=== PATIENT | male | born 1970 | race Caucasian/White ===

== ENCOUNTER 2021-01-23 08:56 | Emergency (ER) | payer MEDICARE, SELFPAY ==
[2021-01-23 08:57] VITALS: BP 142/80; PULSE 93; RESP 36; TEMP 36.8; O2SAT 96; BMI 39.5
--- NOTE | 2021-01-23 09:08 | ECG_ITS ---
APPROVED REPORT Exam: Resting ECG HR:93 bpm ECG Measurements Heart Rate 93 AXES IA 144 P 46 QRSd 96 QRS 2 QT 366 T 58 QTc 455 Conclusion Normal sinus rhythm Normal ECG Electronically signed by : Cameron Kohli, 01/24/2021 20:57:50
--- NOTE | 2021-01-23 09:12 | HMH.EDGENADL ---
ED Disposition Clinical Impression: Transaminitis, SOB (shortness of breath) Disposition: Home, Self-Care Condition on Discharge: Good Instructions: Liver Cirrhosis (Alternative Therapy) Referrals: Star Mathis MD [Primary Care Provider] - 01/25/21 (call for appointment) Time of Disposition: 10:48 - Critical Care Critical Care Time: No Attestation: On , the high probability of a clinically significant, sudden or life threatening deterioration of the following system(s) required my full and direct attention, intervention and personal management. The time I documented below is in addition to time spent performing reported procedures but includes the following listed in this critical care notation. Medical Decision Making - Medical Records Medical records reviewed: Yes: I reviewed the patient's medical records. - Fahad Inquiry Pt receiving controlled substance: No Vital Signs: 01/23/21 08:57 Temperature 98.2 F Temperature Source Oral Pulse Rate [Radial] 93 H Respiratory Rate 36 H Blood Pressure [Right Arm] 142/80 H Blood Pressure Mean [Right Arm] 100 Blood Pressure Position [Right Arm] Sitting 02 Sat by Pulse Oximetry 96 Oxygen Delivery Method Room Air - Lab Data Lab Results 01/23/21 09:12: WBC 8.4, RBC 4.66, Hgb 10.6 L, Hct 34.9 L, MCV 74.9 L, MCH 22.8 L, MCHC 30.4 L, RDW 16.0, Plt Count 351, MPV 8.3, Neut % (Auto) 68.1, Lymph % (Auto) 18.9, [place] % (Auto) 7.5, Eos % (Auto) 5.1, Baso % (Auto) 0.4, Neut # (Auto) 5.7, Lymph # (Auto) 1.6, [place] # (Auto) 0.6, Eos # (Auto) 0.4, Baso # (Auto) 0.0 01/23/21 09:12: Sodium 143, Potassium 4.3, Chloride 102, Carbon Dioxide 33 H, Anion Gap 12.3, BUN 33 H, Creatinine 1.10, Estimated Creat Clear 136, Estimated GFR 71, Est GFR ( Amer) 86, Glucose 216 H, Calcium 9.0, Troponin I < 0.01, NT-Pro-B Natriuret Pep 75.2 01/23/21 09:12: Total Bilirubin 0.3, Direct Bilirubin 0.3, Conjugated Bilirubin 0.0, Indirect Bilirubin 0.0, Unconjugated Bilirubin 0.0, AST 78 H, ALT 85 H, Alkaline Phosphatase 165 H, Total Protein 7.6, Albumin 4.3 Result diagrams: 01/23/21 09:12 01/23/21 09:12 Orders (Tests/Meds): ORDERS Category Date Time Status XR chest portable Stat Exams 01/23/21 09:20 Taken - ECG Data Tracing #1 I reviewed this ECG and interpreted as documented below: 93 bpm, normal sinus rhythm, no ST elevation or depression, no ectopy, normal intervals. ECG initial impression date: 01/23/21 ECG initial impression time: 09:11 Medical Decision Narrative: 50yo M evaluated for dyspnea. Patient no acute distress on initial evaluation. He is able to speak in complete sentences. Patient is severely edematous with chronic skin changes to bilateral lower extremities. Noted to have worse blistering and weeping to his right lower extremity. Patient's abdomen is very tense with distention but no fluid wave is appreciated. Routine cardiac work-up, BNP are pending at this time. Patient's troponin is undetectable, his BNP is 75. On discussing lab results and findings with the patient at bedside, he relates he used to be a heavy drinker. States he used to drink a case per night. States he quit drinking 4 years ago. I completed a bedside ultrasound of the patient's abdomen to assess for significant ascites. No significant ascites was appreciated. Remainder of patient's laboratory studies are unremarkable except for transaminitis. Will order hepatitis panel, though this is a send off and will not be resulted today. Patient's chest x-ray is not terribly impressive and there are no previous studies for comparison that I can find. Patient has numerous chronic conditions but no acute diagnosis requiring admission to the hospital. We will discharge the patient home. Encouraged him to keep taking regular medications as directed. Follow-up with his PCPs office on Monday. General Adult HPI - General Stated complaint: soa, bilateral leg pain Time Seen by Provider: 01/23/21
--- NOTE | 2021-01-23 09:20 | XR_ITS ---
PROCEDURE INFORMATION: Exam: XR Chest Exam date and time: 01/23/2021 9:20 AM Age: 50 years old Clinical indication: Shortness of breath; Additional info: SOB TECHNIQUE: Imaging protocol: XR of the chest. Views: 1 view. COMPARISON: [facility] SHOU3R [id number] [id number] 09/13/2015 8:16 PM FINDINGS: Tubes, catheters and devices: Overlying EKG wires Lungs: Bibasilar atelectasis . No focal consolidation Pleural spaces: Unremarkable. No pleural effusion. No pneumothorax. Heart/Mediastinum: Unremarkable. No cardiomegaly. Bones/joints: Unremarkable. IMPRESSION: No acute process
[2021-01-23 09:23] LABS: Basophils % 0.4 % (0.1-2.0); Eosinophils # 0.4 K/mm3 (0.0-0.4); Eosinophils % 5.1 % (0.1-12.0); Hematocrit 34.9 % (42.0-52.0); Hemoglobin 10.6 g/dL (14.1-18.0); Lymphocytes # 1.6 K/mm3 (0.7-4.5); Lymphocytes % 18.9 % (10-50); Mean Corpuscular HGB Conc 30.4 g/dL (31.8-35.4); Mean Corpuscular Hemoglobin 22.8 pg (27.0-31.2); Mean Corpuscular Volume 74.9 fl (80-94); Mean Platelet Volume 8.3 fl (7.4-10.4); Monocytes # 0.6 K/mm3 (0.1-1.0); Monocytes % 7.5 % (1.7-9.3); Neutrophils # 5.7 K/mm3 (1.8-7.8); Neutrophils % 68.1 % (37.0-80.0); Platelet Count 351 K/mm3 (142-424); Red Blood Count 4.66 M/mm3 (4.60-6.20); White Blood Count 8.4 K/mm3 (4.8-10.8)
[2021-01-23 09:29] LABS: Chloride 102 mmol/L (98-107)
[2021-01-23 09:30] LABS: Potassium 4.3 mmoL/L (3.5-5.1); Sodium 143 mmol/L (136-145)
[2021-01-23 09:33] LABS: Anion Gap 12.3 mEq/L (5-15); Blood Urea Nitrogen 33 mg/dl (9-20); Carbon Dioxide 33 mmol/L (22.0-30.0); Creatinine Clearance Estimated 136 mL/min (50-200); Estimated Glomerular Filt Rate 71 ml/min (>60); GFR (African American) 86 ML/MIN (>60); Glucose 216 mg/dl (74-100)
[2021-01-23 09:44] LABS: NT Pro Brain Natriuretic Pep. 75.2 pg/mL (0-125)
[2021-01-23 09:49] LABS: Troponin I < 0.01 ng/ml (0.00-0.034)
[2021-01-23 10:03] LABS: Alanine Aminotransferase 85 U/L (12-78); Aspartate Amino Transferase 78 U/L (17-59)
[2021-01-23 10:04] LABS: Albumin Level 4.3 g/dl (3.5-5.0); Alkaline Phosphatase 165 U/L (38-126); Bilirubin,Direct 0.3 mg/dl (0.0-0.4); Bilirubin,Total 0.3 mg/dl (0.2-1.3); Total Protein,Serum 7.6 g/dl (6.3-8.2)
[2021-01-23 10:31] VITALS: BP 154/83; PULSE 94; RESP 20; O2SAT 99
[2021-01-23 11:02] VITALS: BP 151/87; PULSE 65; RESP 30; TEMP 36.6; O2SAT 98
[2021-01-24 08:25] LABS: Hep A Ab, IgM Negative (Negative); Hepatitis B Core Antibody IgM Negative (Negative); Hepatitis B Surface Antigen Negative (Negative); Hepatitis C Antibody <0.1 s/co ratio (0.0-0.9)
== END 2021-01-23 11:03 | disposition home or self-care (01) ==
PROVIDERS: Emergency Provider Family Medicine; PCP Emergency Medicine
DX: R74.01 Elevation of levels of liver transaminase levels (principal); R60.9 Edema, unspecified; E11.65 Type 2 diabetes mellitus with hyperglycemia; G62.9 Polyneuropathy, unspecified; K21.9 Gastro-esophageal reflux disease without esophagitis; I10 Essential (primary) hypertension; E78.5 Hyperlipidemia, unspecified; F41.8 Other specified anxiety disorders
CPT/HCPCS: 71045; 80048; 80074; 80076; 83880; 84484; 85025; 93005; 99283

== ENCOUNTER 2021-01-29 16:01 | Observation (INO) | payer MEDICARE, SELFPAY ==
[2021-01-29 16:02] VITALS: BP 171/88; PULSE 98; RESP 22; TEMP 36.4; O2SAT 99; BMI 42.5
--- NOTE | 2021-01-29 16:09 | ECG_ITS ---
APPROVED REPORT Exam: Resting ECG HR:100 bpm ECG Measurements Heart Rate 100 AXES [place] 152 P 48 QRSd 102 QRS -5 QT 354 T 57 QTc 456 Conclusion Normal sinus rhythm Normal ECG Electronically signed by : Cameron Kohli MD 01/30/2021 07:57:20
--- NOTE | 2021-01-29 16:15 | HMH.EDSOB ---
ED Disposition Clinical Impression: Hyperglycemia due to diabetes mellitus Congestive heart failure (CHF) Qualifiers: Heart failure type: diastolic Heart failure chronicity: acute on chronic Qualified Code(s): I50.33 - Acute on chronic diastolic (congestive) heart failure Disposition: Admitted as Observation Condition on Discharge: Fair - Critical Care Critical Care Time: No Attestation: On 01/29/21, the high probability of a clinically significant, sudden or life threatening deterioration of the following system(s) required my full and direct attention, intervention and personal management. The time I documented below is in addition to time spent performing reported procedures but includes the following listed in this critical care notation. Medical Decision Making - Medical Records Medical records reviewed: Yes: I reviewed the patient's medical records. - Fahad Inquiry Pt receiving controlled substance: No Vital Signs: 01/29/21 16:02 01/29/21 17:00 01/29/21 19:06 Temperature 97.6 F 97.6 F Temperature Source Oral Oral Pulse Rate 98 H 98 H Pulse Rate [Left Radial] 98 H Respiratory Rate 22 16 16 Blood Pressure 176/95 H 176/65 H Blood Pressure [Right Arm] 171/88 H Blood Pressure Mean [Right Arm] 115 Blood Pressure Source Automatic Cuff Blood Pressure Source [Right Arm] Automatic Cuff Blood Pressure Position Sitting Blood Pressure Position [Right Arm] Sitting 02 Sat by Pulse Oximetry 99 96 Oxygen Delivery Method Nasal Cannula Room Air Oxygen Flow Rate (LPM) 2 - Lab Data Lab results reviewed: Yes: I reviewed the patient's lab results. Lab Results 01/29/21 14:20: WBC 8.1, RBC 4.62, Hgb 10.4 L, Hct 34.6 L, MCV 75.0 L, MCH 22.6 L, MCHC 30.1 L, RDW 15.8, Plt Count 365, MPV 8.9, Neut % (Auto) 83.2 H, Lymph % (Auto) 11.5, [place] % (Auto) 4.6, Eos % (Auto) 0.5, Baso % (Auto) 0.3, Neut # (Auto) 6.7, Lymph # (Auto) 0.9, [place] # (Auto) 0.4, Eos # (Auto) 0.0, Baso # (Auto) 0.0 01/29/21 14:20: Sodium 138, Potassium 4.9, Chloride 96 L, Carbon Dioxide 31 H, Anion Gap 15.9 H, BUN 49 H, Creatinine 1.40 H, Estimated Creat Clear 62, Estimated GFR 54 L, Est GFR ( Amer) 65, Glucose 478 H*, Calcium 8.5, Total Bilirubin 0.3, AST 71 H, ALT 84 H, Alkaline Phosphatase 175 H, Troponin I < 0.01, NT-Pro-B Natriuret Pep 26.8, Total Protein 7.3, Albumin 4.3, Globulin 3.0, Albumin/Globulin Ratio 1.4 01/29/21 17:05: Urine Color Straw, Urine Appearance Clear, Urine pH 6.0, Ur Specific [place] 1.010, Urine Protein 1+, Urine Glucose (UA) 3+, Urine Ketones Negative, Urine Blood Trace-l, Urine Nitrate Negative, Urine Bilirubin Negative, Urine Urobilinogen 0.2, Ur Leukocyte Esterase Negative, Urine RBC Occasional, Urine WBC Occasional, Ur Squamous Epith Cells Occasional, Urine Bacteria Trace 01/29/21 18:09: POC Glucose 346 H* 01/29/21 18:26: SARS-CoV-2 (PCR) Not detected, Influenza A Untype (PCR) Not detected, Influenza Type B (PCR) Not detected Result diagrams: 01/29/21 14:20 01/29/21 14:20 Orders (Tests/Meds): ED MEDICATIONS Generic Name Dose Route Start Last Admin Trade Name Freq PRN Reason Stop Dose Admin Furosemide 60 mg 01/29/21 23:00 Furosemide 100mg/10ml Vial IV 01/29/21 23:01 ONCE ONE Discontinued Medications Generic Name Dose Route Start Last Admin Trade Name Freq PRN Reason Stop Dose Admin Insulin Human Regular 15 unit 01/29/21 16:44 01/29/21 17:00 Insulin Human Regular 100 Units/Ml 10ml Vial SQ 01/29/21 16:45 15 unit ONCE ONE Administration ORDERS Category Date Time Status Troponin I Q3H Lab 01/29/21 19:30 Ordered - ECG Data Tracing #1 The patient's ECG was done at 1610. It is a normal EKG with a normal sinus rhythm with a heart rate of 100 without any evidence of ischemia or dysrhythmia. Normal axis. Normal Sinus Rhythm: Yes - Physician Consults Physician Consulted: Yves Reason -: Admission Comment/Response: Met the patient. He has requested
--- NOTE | 2021-01-29 16:19 | XR_ITS ---
PROCEDURE: XR CHEST PORTABLE CLINICAL HISTORY: Dyspnea, COVID+, CP COMPARISON: CR XR CHEST PORTABLE from 01/23/2021 FINDINGS: The cardiomediastinal silhouette and pulmonary vascularity are within normal limits. The lungs are clear without infiltrates, suspicious nodules, or pleural effusions. No acute bony abnormalities. IMPRESSION: No acute findings. Dictated by: Mj Mcneil MD 01/29/2021 18:15 Mj Mcneil MD in [facility] 01/29/2021 18:15
[2021-01-29 16:26] LABS: Basophils % 0.3 % (0.1-2.0); Eosinophils % 0.5 % (0.1-12.0); Hematocrit 34.6 % (42.0-52.0); Hemoglobin 10.4 g/dL (14.1-18.0); Lymphocytes # 0.9 K/mm3 (0.7-4.5); Lymphocytes % 11.5 % (10-50); Mean Corpuscular HGB Conc 30.1 g/dL (31.8-35.4); Mean Corpuscular Hemoglobin 22.6 pg (27.0-31.2); Mean Platelet Volume 8.9 fl (7.4-10.4); Monocytes # 0.4 K/mm3 (0.1-1.0); Monocytes % 4.6 % (1.7-9.3); Neutrophils # 6.7 K/mm3 (1.8-7.8); Neutrophils % 83.2 % (37.0-80.0); Platelet Count 365 K/mm3 (142-424); Red Blood Count 4.62 M/mm3 (4.60-6.20); Red Cell Distribution Width 15.8 % (11.5-17.5); White Blood Count 8.1 K/mm3 (4.8-10.8)
[2021-01-29 16:38] LABS: Alanine Aminotransferase 84 U/L (12-78); Albumin Level 4.3 g/dl (3.5-5.0); Albumin/Globulin Ratio 1.4 (1.1-1.8); Alkaline Phosphatase 175 U/L (38-126); Anion Gap 15.9 mEq/L (5-15); Aspartate Amino Transferase 71 U/L (17-59); Bilirubin,Total 0.3 mg/dl (0.2-1.3); Blood Urea Nitrogen 49 mg/dl (9-20); Calcium 8.5 mg/dl (8.4-10.2); Carbon Dioxide 31 mmol/L (22.0-30.0); Chloride 96 mmol/L (98-107); Creatinine Clearance Estimated 62 mL/min (50-200); Estimated Glomerular Filt Rate 54 ml/min (>60); GFR (African American) 65 ML/MIN (>60); Potassium 4.9 mmoL/L (3.5-5.1); Sodium 138 mmol/L (136-145); Total Protein,Serum 7.3 g/dl (6.3-8.2)
[2021-01-29 16:42] LABS: Glucose 478 mg/dl (74-100)
[2021-01-29 16:51] LABS: NT Pro Brain Natriuretic Pep. 26.8 pg/mL (0-125)
[2021-01-29 16:58] LABS: Troponin I < 0.01 ng/ml (0.00-0.034)
[2021-01-29 17:00] VITALS: BP 176/95; PULSE 98; RESP 16; O2SAT 96
--- NOTE | 2021-01-29 17:05 | PC.NURSE ---
URINE OUTPUT [id number]
[2021-01-29 17:09] LABS: Microscopic, Urine URINE MICROSCOPIC (MICROSCOPIC)
[2021-01-29 17:12] LABS: Appearance,Urine CLEAR (Clear); Bilirubin,Urine Negative (Negative); Blood, Urine TRACE-L (Negative); Color,Urine STRAW (Yellow); Glucose,Urine (UA) 3+ (Negative); Ketones,Urine Negative (Negative); Leukocyte Esterase,Urine Negative (Negative); Nitrate,Urine Negative (Negative); Protein,Urine 1+ (Negative); Urobilinogen,Urine 0.2 EU/dl (0.2)
[2021-01-29 17:22] LABS: Bacteria,Urine Trace /lpf; RBC,Urine Occasional #/hpf (0-3); Squamous Epithelial Cell,Urine Occasional #/hpf (0-5); WBC,Urine Occasional #/hpf (0-3)
--- NOTE | 2021-01-29 18:13 | PC.NURSE ---
speaking with assistant director of plant operations doctor
[2021-01-29 18:16] LABS: POC Glucose,Bedside 346 (70-110)
--- NOTE | 2021-01-29 18:26 | PC.NURSE ---
Dr Fall spoke with Dr Marinelli for admission
--- NOTE | 2021-01-29 18:26 | INFXCTL.NOTE ---
Talked to Rakesh in pharmacy that states the dose of lantus to replace toujeo would be 200 units
--- NOTE | 2021-01-29 18:31 | PC.NURSE ---
bed assignment requested, room 211. all staff notified
[2021-01-29 18:40] LABS: Coronavirus 19, PCR Not Detected (NotDetected); Influenza A, PCR Not Detected (NotDetected); Influenza B, PCR Not Detected (NotDetected)
[2021-01-29 19:06] VITALS: BP 176/65; PULSE 98; RESP 16; TEMP 36.4; O2SAT 96
--- NOTE | 2021-01-29 19:40 | PC.NURSE ---
patient up to floor via wheelchair.
[2021-01-29 20:00] VITALS: BP 166/92; PULSE 90; RESP 18; TEMP 36.3; O2SAT 93; BMI 48.0
[2021-01-29 20:08] LABS: Troponin I < 0.01 ng/ml (0.00-0.034)
[2021-01-29 21:54] LABS: POC Glucose,Bedside 384 (70-110)
[2021-01-30] VITALS: BP 142/104; PULSE 98; RESP 20; TEMP 37.1; O2SAT 95
[2021-01-30 02:47] LABS: POC Glucose,Bedside 280 (70-110)
--- NOTE | 2021-01-30 03:29 | PC.NURSE ---
Pt is A/O x4. Pt rested well this shift. Phoned per pt's request to order bedtime meds to help him sleep. Verified Insulin dose with on phone that ER had ordered. pt also requested a Cpap machine that he wore all night and tolerated well. Pt ambulates to bathroom well. Pt is on room air, and has an IV in Left A/C that is SL. Call light within reach, VSS, pt is able to make needs known to staff, will continue to monitor.
[2021-01-30 03:57] VITALS: BP 136/97; PULSE 93; RESP 14; TEMP 36.3; O2SAT 99
[2021-01-30 05:35] VITALS: BMI 47.2
[2021-01-30 06:09] LABS: POC Glucose,Bedside 254 (70-110)
[2021-01-30 07:40] LABS: Chloride 93 mmol/L (98-107); Sodium 141 mmol/L (136-145)
[2021-01-30 07:43] LABS: Blood Urea Nitrogen 37 mg/dl (9-20); Calcium 9.3 mg/dl (8.4-10.2); Carbon Dioxide 38 mmol/L (22.0-30.0); Creatinine Clearance Estimated 72 mL/min (50-200); Estimated Glomerular Filt Rate 64 ml/min (>60); GFR (African American) 78 ML/MIN (>60); Glucose 264 mg/dl (74-100)
[2021-01-30 08:00] VITALS: BP 159/94; PULSE 95; RESP 18; TEMP 36.7; O2SAT 95
--- NOTE | 2021-01-30 13:53 | HMH.PHAINT ---
MEDICATION RECONCILIATION COMPLETE USING EXTERNAL PHARMACY FILL HISTORY, LIST FROM RECENT OFFICE VISIT, AND PATIENT INTERVIEW.
[2021-01-30 14:05] LABS: POC Glucose,Bedside 552 (70-110)
[2021-01-30 14:33] LABS: Glucose,Random 624 mg/dL (74-100)
--- NOTE | 2021-01-30 15:04 | HMH.HP ---
*Admission Date: 01/29/21 *Chief complaint: chf and diabetes *History of present illness: The patient presents to the emergency department today because he has noted increased leg swelling and he has become progressively more short of breath. He states that last night he had an episode of chest pain for which he took nitroglycerin. He states that he has never had an acute myocardial infarction in his he has had a cardiac catheterization which looked good . He has a known history of diabetes for which she takes oral agents as well as insulin and he has a history of congestive heart failure for which she takes Lasix. He states that lately he has been having less urine output than usual. MD Complaint: shortness of breath from er records Patient has a longstanding history of poorly controlled diabetes with ocular complications. Patient has YESSENIA, uses a CPAP at night. Patient has longstanding volume overload, density for weeping edema. Patient gives a history of dyspnea on exertion. [facility] History Medical History: Reports:: Anxiety, Atrial Fibrillation, Congestive Heart Failure, Coronary Artery Disease, Depression, Diabetes Mellitus Type 2, Gastroesophageal Reflux Disease(GERD), Hyperlipidemia, Hypertension, Renal Disease Denies:: Cancer, Diabetes Mellitus Type 1, MRSA *Have you ever received a pneumonia vaccine?: Yes *Have you received a flu vaccine this season?: Yes Other Surgeries: Yes: No Previous Surgery, Angiogram (11/13/17 no stenting), Cardiac Catheterization Amputation: No Fractures: Yes - *Social History Smoking Status: Former smoker Tobacco Type: smokeless tobacco Alcohol Intake: former Alcohol Intake Frequency:: 3 or more drinks per day Substance Use Type: denies use *Occupational Status:: disabled Household Members: family *Travel in the last 8 weeks: None - Psychiatric History Pschychiatric History:: Reports:: Anxiety, Depression Family Hx:: Heart Attack, Hypertension, Substance abuse, Alcoholism Review of Systems - Constitutional Reports lack of energy - Eyes Reports change in vision - ENT Denies abnormal hearing - *Cardiovascular Reports chest pain, Reports shortness of breath with activity - *Respiratory Reports shortness of breath, Denies coughing up blood - *Gastrointestinal Denies abdominal pain - *Genitourinary Denies difficulty urinating - *Musculoskeletal Reports abnormal walking, Reports muscle cramps, Reports muscle weakness - Integumentary/Breasts Reports lesions, Reports itching, Reports rash, Reports sores, Denies yellowing of the skin - *Neurologic Reports abnormal walking, Reports loss of vision, Denies confusion - Psychiatric Denies behavioral changes - Endocrine Reports heat intolerance - Hematologic/Lymphatic Denies easy bleeding, Denies easy bruising - Allergic/Immunologic Denies hives Meds Home Medications Medication Instructions Recorded Confirmed Type aspirin 81 mg tablet,delayed 81 mg PO DAILY tab 10/27/17 01/29/21 History release pantoprazole 40 mg tablet,delayed 40 mg PO QAM 10/27/17 01/29/21 History release omega-3 acid ethyl esters 1 gram 4 cap PO DAILY cap 11/08/17 01/30/21 History capsule albuterol sulfate 90 mcg/actuation 2 puff INHALATION Q4-6H PRN 01/18/21 01/29/21 History aerosol inhaler bupropion HCl (smoking deter) 150 150 mg PO BID 01/18/21 01/29/21 History mg tablet,12 hr sustained-release(smoking deterrent) buspirone 30 mg tablet 30 mg PO TID tab 01/18/21 01/29/21 History carvedilol 25 mg tablet 25 mg PO BID 01/18/21 01/29/21 History cholecalciferol (vitamin D3) 1,250 1,250 mcg PO WEEKLY 01/18/21 01/29/21 History mcg (50,000 unit) capsule duloxetine 30 mg capsule,delayed 60 mg PO DAILY cap 01/18/21 01/29/21 History release lorazepam 1 mg tablet 1 mg PO BIDP PRN 01/18/21 01/30/21 History losartan 100 mg tablet 100 mg PO DAILY 01/18/21 01/29/21 History magnesium oxide 400 mg PO DAILY 01/18/21
--- NOTE | 2021-01-30 15:48 | P.CONPHA_ITS ---
[facility] Pharmacy VTE Monitoring - Patient Demographics Admission date: 01/30/21 Report Date: 01/30/21 Time: 15:48 Allergies/Adverse Reactions: Patient Allergies pregabalin [From Lyrica] Adverse Reaction (Verified 01/18/21 10:24) made skin crawl Height: 1.73 m Weight: 141.606 kg Patient Problems: Current Active Problems SOB (shortness of breath) (Chronic) Congestive heart failure (CHF) (Chronic) Hyperglycemia due to diabetes mellitus (Chronic) Smoker (Chronic) Diabetes mellitus (Chronic) Other forms of angina pectoris (Chronic) HTN (hypertension) (Chronic) Dyspnea (Acute) Abnormal ECG (Acute) Orthopnea (Chronic) Chest pain (Acute) PND (paroxysmal nocturnal dyspnea) (Chronic) Hyperlipidemia (Chronic) Diabetic retinopathy (Chronic) Neuropathy (Chronic) - VTE Risk Labs: VTE Related Lab Results Hgb 10.4 g/dL (14.1-18.0) L 01/29/21 14:20 Hct 34.6 % (42.0-52.0) L 01/29/21 14:20 Plt Count 365 K/mm3 (142-424) 01/29/21 14:20 BUN 37 mg/dl (9-20) H 01/30/21 06:06 Creatinine 1.20 mg/dl (0.66-1.25) 01/30/21 06:06 Estimated Creat Clear 72 mL/min (50-200) 01/30/21 06:06 Was VTE Risk Assessment Performed: Yes VTE Score: 5 VTE Risk Level: Low Risk Clinical Trial Participant: No - Prophylaxis VTE Prophylaxis Ordered?: Yes Types of VTE Prophylaxis: Pharmacological Location of Applied Device: Refused Pharmacologic Type: Enoxaparin
[2021-01-30 16:00] VITALS: BP 145/82; PULSE 85; RESP 20; TEMP 36.9; O2SAT 96
[2021-01-30 16:51] LABS: Glucose,Random 621 mg/dL (74-100)
--- NOTE | 2021-01-30 18:11 | PC.NURSE ---
Pt has been pleasant and cooperative this shift. A&O X4. No complaints of pain or SOA. Pt is currently on room air with sats. >90%. Lungs CTA. 2+ pitting edema noted to BLE. Scattered scabbing noted to bilateral shins with slight bleeding noted. 4X4's, Kerlix, and JAY wrap applied. Pt ambulates independently to/from the bathroom and throughout the room. Pt also sat up in the recliner for the majority of the day. Urine is clear and yellow. No BM this shift. Appetite is excellent and pt eats 100% of all meals. Blood glucose results have been 624 and 621. A total of 70 units of Humalog has been given thus far this shift per MD orders. 18 G peripheral IV in the RT AC is patent and SL. VSS. Call light within reach. Will continue to monitor.
[2021-01-30 19:01] LABS: POC Glucose,Bedside 545 (70-110)
[2021-01-30 19:25] LABS: Glucose,Random 569 mg/dL (74-100)
[2021-01-30 20:00] VITALS: BP 170/86; PULSE 107; RESP 18; TEMP 36.8; O2SAT 96
--- NOTE | 2021-01-30 21:53 | PC.NURSE ---
[address]
[2021-01-30 22:18] LABS: POC Glucose,Bedside 378 (70-110)
[2021-01-31 04:00] VITALS: BP 155/97; PULSE 105; RESP 17; TEMP 36.9; O2SAT 96
[2021-01-31 05:20] VITALS: BMI 46.0
[2021-01-31 05:51] LABS: POC Glucose,Bedside 281 (70-110)
--- NOTE | 2021-01-31 06:00 | XR_ITS ---
PROCEDURE INFORMATION: Exam: XR Chest Exam date and time: 01/31/2021 6:00 AM Age: 50 years old Clinical indication: Other: Chf TECHNIQUE: Imaging protocol: XR of the chest. Views: 1 view. COMPARISON: CR XR CHEST PORTABLE 01/29/2021 4:33 PM FINDINGS: Lungs: Opacity in the left base and left mid lung may represent atelectasis or pneumonia.. Pleural spaces: Unremarkable. No pleural effusion. No pneumothorax. Heart/Mediastinum: Unremarkable. No cardiomegaly. Bones/joints: Unremarkable. IMPRESSION: Opacity in the left base and left mid lung may represent atelectasis or pneumonia..
[2021-01-31 08:00] VITALS: BP 147/87; PULSE 112; RESP 22; TEMP 36.8; O2SAT 98
[2021-01-31 08:14] LABS: Basophils # 0.1 K/mm3 (0-0.2); Basophils % 0.7 % (0.1-2.0); Eosinophils # 0.3 K/mm3 (0.0-0.4); Hematocrit 38.5 % (42.0-52.0); Hemoglobin 11.9 g/dL (14.1-18.0); Lymphocytes # 1.8 K/mm3 (0.7-4.5); Lymphocytes % 16.6 % (10-50); Mean Corpuscular HGB Conc 30.9 g/dL (31.8-35.4); Mean Corpuscular Hemoglobin 22.6 pg (27.0-31.2); Mean Platelet Volume 7.9 fl (7.4-10.4); Monocytes # 0.8 K/mm3 (0.1-1.0); Monocytes % 6.9 % (1.7-9.3); Neutrophils # 7.9 K/mm3 (1.8-7.8); Neutrophils % 72.9 % (37.0-80.0); Platelet Count 399 K/mm3 (142-424); Red Blood Count 5.27 M/mm3 (4.60-6.20); Red Cell Distribution Width 15.7 % (11.5-17.5); White Blood Count 10.9 K/mm3 (4.8-10.8)
[2021-01-31 08:46] LABS: Chloride 92 mmol/L (98-107)
[2021-01-31 08:47] LABS: Sodium 137 mmol/L (136-145)
[2021-01-31 08:49] LABS: Alanine Aminotransferase 124 U/L (12-78); Albumin Level 4.6 g/dl (3.5-5.0); Albumin/Globulin Ratio 1.3 (1.1-1.8); Alkaline Phosphatase 167 U/L (38-126); Aspartate Amino Transferase 107 U/L (17-59); Bilirubin,Total 0.3 mg/dl (0.2-1.3); Blood Urea Nitrogen 37 mg/dl (9-20); Calcium 9.2 mg/dl (8.4-10.2); Carbon Dioxide 34 mmol/L (22.0-30.0); Creatinine Clearance Estimated 72 mL/min (50-200); Estimated Glomerular Filt Rate 64 ml/min (>60); GFR (African American) 78 ML/MIN (>60); Globulin 3.6 g/dL (1.3-3.2); Glucose 312 mg/dl (74-100); Total Protein,Serum 8.2 g/dl (6.3-8.2)
[2021-01-31 11:23] LABS: POC Glucose,Bedside 531 (70-110)
[2021-01-31 12:07] LABS: Glucose,Random 517 mg/dL (74-100)
--- NOTE | 2021-01-31 14:05 | HMH.ACPN2 ---
Internal Medicine - PN: Subj *Date: 01/31/21 *Time: 14:07 Interval history: Patient relays no negative setbacks during the night. He is getting Lasix 80 IV twice daily and has diuresed well, all pound weight loss since yesterday. Reports that he is less dyspneic. He is having no ischemic chest pain. The edema in the lower extremities is no longer being. The rash on his anterior calves is slightly less red, looks much less angry. There is no streaking. View of his chest film just a process at the left base could be infiltrative. We will add a azithromycin to his regimen. YESSENIA, severe, has been using the CPAP BiPAP since admission. Longstanding history of poorly controlled diabetes. Glucose remains elevated today, will restart his home regimen hopes for better control. Will absolutely need to be fine-tuned as an outpatient. Exam Vital signs and Labs for Last 24 Hours: Temp Pulse Resp BP Pulse Ox 98.2 F 112 H 22 147/87 H 98 01/31/21 08:00 01/31/21 08:00 01/31/21 08:00 01/31/21 08:00 01/31/21 08:00 Laboratory Results - last 24 hr 01/30/21 13:58: POC Glucose 552 H* 01/30/21 14:05: Random Glucose 624 H* 01/30/21 16:25: Random Glucose 621 H* 01/30/21 18:54: POC Glucose 545 H* 01/30/21 19:05: Random Glucose 569 H* 01/30/21 21:28: POC Glucose 378 H* 01/31/21 05:26: POC Glucose 281 H 01/31/21 08:00: WBC 10.9 H D, RBC 5.27, Hgb 11.9 L, Hct 38.5 L, MCV 73.0 L, MCH 22.6 L, MCHC 30.9 L, RDW 15.7, Plt Count 399, MPV 7.9, Neut % (Auto) 72.9, Lymph % (Auto) 16.6, [place] % (Auto) 6.9, Eos % (Auto) 3.0, Baso % (Auto) 0.7, Neut # (Auto) 7.9 H, Lymph # (Auto) 1.8, [place] # (Auto) 0.8, Eos # (Auto) 0.3, Baso # (Auto) 0.1 01/31/21 08:00: Sodium 137, Potassium 4.0, Chloride 92 L, Carbon Dioxide 34 H, Anion Gap 15.0, BUN 37 H, Creatinine 1.20, Estimated Creat Clear 72, Estimated GFR 64, Est GFR ( Amer) 78, Glucose 312 H, Calcium 9.2, Total Bilirubin 0.3, AST 107 H D, ALT 124 H D, Alkaline Phosphatase 167 H, Total Protein 8.2, Albumin 4.6, Globulin 3.6 H, Albumin/Globulin Ratio 1.3 01/31/21 11:15: POC Glucose 531 H* 01/31/21 11:45: Random Glucose 517 H* I & O for Last 24 hours: Intake & Output 01/28/21 01/29/21 01/30/21 01/31/21 23:59 23:59 23:59 23:59 Intake Total 1730 / 1730 1560 / 1560 Output Total 3600 / 3600 650 / 650 Balance -1870 / -1870 910 / 910 Weight 316 lb 2 oz 312 lb 3 oz 304 lb - Constitutional no acute distress, morbidly obese, disheveled, cooperative - *Routine HEENT Exam Head: Present: normocephalic Eye: Present: EOMI, PERRL ENT: Present: mucous membranes moist - *Routine Neck Exam Present: supple. Absent: lymphadenopathy - *Routine Respiratory Exam Present: crackles, diminished air movement. Absent: accessory muscle use, respiratory distress, wheezes - *Routine Cardiovascular Exam Present: RRR - *Routine Abdominal Exam Present: soft, normoactive bowel sounds, obese. Absent: tenderness - *Routine Extremities Exam Present: edema. Absent: cyanosis, clubbing, calf tenderness - *Routine Skin Exam Present: intact, erythema, lesions. Absent: cyanosis - *Routine Neurological Exam Present: alert, oriented X3 Assessment and Plan (1) Congestive heart failure (CHF) Status: Chronic Qualifiers: Heart failure type: diastolic Heart failure chronicity: acute on chronic Qualified Code(s): I50.33 - Acute on chronic diastolic (congestive) heart failure Category: Medical Code(s): I50.9 - Heart failure, unspecified (2) Hyperglycemia due to diabetes mellitus Status: Chronic Category: Medical Code(s): E11.65 - Type 2 diabetes mellitus with hyperglycemia (3) Abnormal ECG Status: Acute Category: Medical Code(s): R94.31 - Abnormal electrocardiogram [ECG] [EKG] (4) CAD (coronary artery disease) Status: Suspected Qualifiers: Coronary Disease-Associated Artery/Lesion type: [place] artery [place] vs. transplanted heart: [place] heart Associated angina:
[2021-01-31 15:54] VITALS: BP 140/80; PULSE 110; RESP 20; TEMP 36.8; O2SAT 98
[2021-01-31 16:48] LABS: POC Glucose,Bedside 371 (70-110)
--- NOTE | 2021-01-31 17:39 | PC.NURSE ---
Pt has been pleasant and cooperative this shift. A&O X4. No complaints of pain or SOA. Pt is currently on room air with sats. >90%. Lungs CTA. 2+ pitting edema noted to BLE. Scattered scabbing noted to bilateral shins. Pt ambulates independently to/from the bathroom and throughout the room. Pt also sat up in the recliner for a few hours today. Urine is clear and yellow. No BM this shift. Appetite is excellent and pt eats 100% of all meals. Blood glucose results have been 531 and 371. 20 G peripheral IV in the RT upper arm is patent and SL. VSS. Call light within reach. Will continue to monitor.
[2021-01-31 20:00] VITALS: BP 105/52; PULSE 109; RESP 17; TEMP 37.1; O2SAT 97
[2021-01-31 22:02] LABS: POC Glucose,Bedside 190 (70-110)
[2021-02-01 04:00] VITALS: BP 112/70; PULSE 84; RESP 19; TEMP 36.6; O2SAT 97
[2021-02-01 05:00] VITALS: BMI 46.4
[2021-02-01 05:50] LABS: POC Glucose,Bedside 314 (70-110)
[2021-02-01 06:15] LABS: Basophils # 0.1 K/mm3 (0-0.2); Basophils % 0.6 % (0.1-2.0); Eosinophils # 0.3 K/mm3 (0.0-0.4); Eosinophils % 3.1 % (0.1-12.0); Hematocrit 35.1 % (42.0-52.0); Hemoglobin 10.8 g/dL (14.1-18.0); Lymphocytes % 19.4 % (10-50); Mean Corpuscular HGB Conc 30.8 g/dL (31.8-35.4); Mean Corpuscular Hemoglobin 22.6 pg (27.0-31.2); Mean Corpuscular Volume 73.3 fl (80-94); Mean Platelet Volume 7.4 fl (7.4-10.4); Monocytes # 0.6 K/mm3 (0.1-1.0); Monocytes % 6.1 % (1.7-9.3); Neutrophils # 7.4 K/mm3 (1.8-7.8); Neutrophils % 70.8 % (37.0-80.0); Platelet Count 341 K/mm3 (142-424); Red Blood Count 4.79 M/mm3 (4.60-6.20); Red Cell Distribution Width 15.5 % (11.5-17.5); White Blood Count 10.5 K/mm3 (4.8-10.8)
[2021-02-01 06:35] LABS: Chloride 90 mmol/L (98-107); Hemoglobin A1C 11.6 % (4.0-6.0); Potassium 4.4 mmoL/L (3.5-5.1); Sodium 135 mmol/L (136-145)
[2021-02-01 06:38] LABS: Alanine Aminotransferase 85 U/L (12-78); Albumin Level 4.2 g/dl (3.5-5.0); Albumin/Globulin Ratio 1.2 (1.1-1.8); Alkaline Phosphatase 140 U/L (38-126); Anion Gap 13.4 mEq/L (5-15); Aspartate Amino Transferase 69 U/L (17-59); Bilirubin,Total 0.5 mg/dl (0.2-1.3); Blood Urea Nitrogen 59 mg/dl (9-20); Calcium 8.6 mg/dl (8.4-10.2); Carbon Dioxide 36 mmol/L (22.0-30.0); Creatinine Clearance Estimated 38 mL/min (50-200); Estimated Glomerular Filt Rate 30 ml/min (>60); GFR (African American) 37 ML/MIN (>60); Globulin 3.4 g/dL (1.3-3.2); Glucose 283 mg/dl (74-100); Total Protein,Serum 7.6 g/dl (6.3-8.2)
[2021-02-01 07:09] LABS: Thyroid Stimulating Hormone 3.04 uIU/mL (0.465-4.68)
[2021-02-01 07:35] VITALS: BP 155/89; PULSE 97; RESP 18; TEMP 36.8; O2SAT 94
[2021-02-01 08:00] VITALS: O2SAT 94
--- NOTE | 2021-02-01 10:27 | HMH.CNCARD ---
History of Present Illness Consult date: 02/01/21 Requesting physician: Bert Villagomez Consult reason: shortness of breath Chief complaint: SOA History of present illness: This is a 50-year-old white gentleman who presented to the emergency department with increased swelling in his bilateral lower extremities and shortness of breath. The patient states that his shortness of breath have progressively worsened over the last several days before coming into the emergency department. The patient states that he did have one episode of chest pain prior to coming into the hospital. He states that this was a pressure sensation associated with the shortness of breath. The patient reports that he has been extremely fatigued and tired with his shortness of breath as well. He states that he can hardly walk or do anything without becoming profoundly fatigued and short of breath. The patient has been diuresed with IV Lasix and has been using CPAP/BiPAP at night while here in the hospital. The patient reports that his shortness of breath has significantly improved. He states his edema is better as well. The patient has also been treated for cellulitis of the lower extremities since being in the hospital. The patient reports this morning that he has not been sleeping well because of the CPAP/BiPAP mask care not fitting him like it does at home. The patient did have a positive fluid balance overnight but is still down 10 pounds since he was admitted to the hospital. His creatinine has bumped with IV diuresis. This morning he denies any chest pain or pressure. He denies any fever, chills, nausea, vomiting, diarrhea. [facility] History I have reviewed the patient's past medical history: Yes Medical History: Reports:: Anxiety, Atrial Fibrillation, Congestive Heart Failure, Coronary Artery Disease, Depression, Diabetes Mellitus Type 2, Gastroesophageal Reflux Disease(GERD), Hyperlipidemia, Hypertension, Renal Disease Denies:: Cancer, Diabetes Mellitus Type 1, MRSA *Have you ever received a pneumonia vaccine?: Yes *Have you received a flu vaccine this season?: Yes Other Surgeries: Yes: No Previous Surgery, Angiogram (11/13/17 no stenting), Cardiac Catheterization Amputation: No Fractures: Yes - *Social History Smoking Status: Former smoker Tobacco Type: smokeless tobacco Alcohol Intake: former Alcohol Intake Frequency:: 3 or more drinks per day Substance Use Type: denies use *Occupational Status:: disabled Household Members: family *Travel in the last 8 weeks: None - Psychiatric History Pschychiatric History:: Reports:: Anxiety, Depression Family Hx:: Heart Attack, Hypertension, Substance abuse, Alcoholism Meds Home Medications Medication Instructions Recorded Confirmed Type aspirin 81 mg tablet,delayed 81 mg PO DAILY tab 10/27/17 01/29/21 History release pantoprazole 40 mg tablet,delayed 40 mg PO QAM 10/27/17 01/29/21 History release omega-3 acid ethyl esters 1 gram 4 cap PO DAILY cap 11/08/17 01/30/21 History capsule albuterol sulfate 90 mcg/actuation 2 puff INHALATION Q4-6H PRN 01/18/21 01/29/21 History aerosol inhaler bupropion HCl (smoking deter) 150 150 mg PO BID 01/18/21 01/29/21 History mg tablet,12 hr sustained-release(smoking deterrent) buspirone 30 mg tablet 30 mg PO TID tab 01/18/21 01/29/21 History carvedilol 25 mg tablet 25 mg PO BID 01/18/21 01/29/21 History cholecalciferol (vitamin D3) 1,250 1,250 mcg PO WEEKLY 01/18/21 01/29/21 History mcg (50,000 unit) capsule duloxetine 30 mg capsule,delayed 60 mg PO DAILY cap 01/18/21 01/29/21 History release lorazepam 1 mg tablet 1 mg PO BIDP PRN 01/18/21 01/30/21 History losartan 100 mg tablet 100 mg PO DAILY 01/18/21 01/29/21 History magnesium oxide 400 mg PO DAILY 01/18/21 01/29/21 History pramipexole 1 mg tablet 1 mg PO TID 01/18/21 01/29/21 History quetiapine 300 mg tablet 600 mg PO HS tab 01/18/21 01/30/21 History umeclidinium 62.5 mcg-vilanterol 1 inh INHALATIO
[2021-02-01 12:10] LABS: POC Glucose,Bedside 155 (70-110)
[2021-02-01 14:08] VITALS: BMI 46.4
[2021-02-01 14:58] VITALS: BP 109/43; PULSE 77; RESP 18; TEMP 36.4; O2SAT 96
--- NOTE | 2021-02-01 15:23 | CA_ITS ---
APPROVED REPORT EXAM: Comprehensive 2D, Doppler, and color-flow Echocardiogram Codifier: Abbi Castellanos CRT Ht: 5 ft 8 in Wt: 312lbs BSA: 2.47 BP: 147/87 mmHg Indications: Shortness of Breath, Atrial Fibrillation, Diabetes, Peripheral Edema, CAD, Hyperlipidemia, Hypertension/HDD, GERD 2D Dimensions LVOT 2.05 cm (M/F) 1.5-2.5 M-Mode Dimensions RVDd 3.44 cm (0.9-2.6) LA Diam 3.73 cm (1.9-4.0) LVDd 4.67 cm (3.5-5.7) Ao Diam 3.92 cm (2.0-3.7) LVDs 3.53 cm (3.5-5.7) IVSd 1.83 cm (0.6-1.1) PWd 1.44 cm (0.6-1.1) EF (Teich) 48.50% FS 24.40% EDV (Teich) 100.80 mL ESV (Teich) 51.90 mL LV Diastology E Decel Time 437.00 (160-240 msec) E/A Ratio 1.06 Aortic Valve AO Peak GR. 6.40 mmHg Mitral Valve MV A Velocity 65.00 (40-130 cm/s) E/A Ratio 1.06 MV Decel. Time 437.00 (160-240 ms) Pulmonary Valve PV Peak Velocity 132.00 (50-150 cm/s) Tricuspid Valve TR P. Velocity 191.00 cm/s RAP Estimate 10.00 mmHg RVSP 24.50 mmHg Left Ventricle Left atrium is mildly enlarged, left ventricle is normal size, mild concentric left ventricular hypertrophy, visually estimated ejection fraction 55% with no regional wall motion abnormality, diastolic parameters are inconclusive. Right Ventricle Right atrium and right ventricle mildly enlarged with normal contractility. Aortic Valve Aortic valve is grossly normal, there is no aortic stenosis. Sections Mitral Valve Mitral valve grossly normal, there is trace mitral regurgitation. Tricuspid Valve Tricuspid valve grossly normal, there is trace tricuspid regurgitation, tricuspid regurgitation jet velocity is inadequate for calculation of the right ventricular systolic pressure. Pulmonic Valve Pulmonic valve is poorly visualized. Great Vessels Aortic root is normal size. Pericardium No significant pericardial effusion noted. Conclusion 1. Mild biatrial enlargement, normal left ventricular size, mild concentric left ventricular hypertrophy, visually estimated ejection fraction 55% with no regional wall motion abnormality, diastolic parameters are inconclusive.Technically difficult study with poor visualization of the endocardial surfaces. 2. Mildly enlarged right ventricle with normal contractility. 3. Trace mitral and tricuspid regurgitation. 4. No significant pericardial effusion noted. Electronically signed by : Luke Levy MD 02/01/2021 21:03:42
--- NOTE | 2021-02-01 15:27 | CA_ITS ---
APPROVED REPORT Bilateral Lower Extremity Venous Study for DVT. 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 Indications Lower Extremity Pain: Lower Extremity Edema: swelling and dyspnea Risk Factors Obesity Vein Imaging CFV (R): compressive, spontaneous, phasic, augmentation SFJ (R): compressive, spontaneous, phasic, augmentation FEM (R): compressive, spontaneous, phasic, augmentation POP (R): compressive, spontaneous, phasic, augmentation DFV (R): compressive, spontaneous, phasic, augmentation PTV (R): compressive, spontaneous, phasic, augmentation GSV (R): compressive, spontaneous, phasic, augmentation SSV (R): Not Visualized Peroneals (R):compressive, spontaneous, phasic, augmentation GAS (R): compressive, spontaneous, phasic, augmentation CFV (L): compressive, spontaneous, phasic, augmentation SFJ (L): compressive, spontaneous, phasic, augmentation FEM (L): compressive, spontaneous, phasic, augmentation POP (L): compressive, spontaneous, phasic, augmentation DFV (L): compressive, spontaneous, phasic, augmentation PTV (L): compressive, spontaneous, phasic, augmentation GSV (L): compressive, spontaneous, phasic, augmentation SSV (L): Not Visualized Peroneals (L):compressive, spontaneous, phasic, augmentation GAS (L): compressive, spontaneous, phasic, augmentation Findings Bilateral venous negative for DVT/SVT. Vessels fully compressible. Limited exam pt moved thru out exam and body habitus Conclusion Bilateral venous negative for DVT/SVT. Vessels fully compressible. Limited exam pt moved thru out exam and body habitus Electronically signed by : Mj Mcneil MD 02/01/2021 16:22:30
[2021-02-01 15:53] VITALS: O2SAT 96
--- NOTE | 2021-02-01 15:55 | HMH.DCSUM ---
General - General Admission date:: 01/29/21 Discharge date: 02/01/21 HPI HPI: The patient presents to the emergency department today because he has noted increased leg swelling and he has become progressively more short of breath. He states that last night he had an episode of chest pain for which he took nitroglycerin. He states that he has never had an acute myocardial infarction in his he has had a cardiac catheterization which looked good . He has a known history of diabetes for which she takes oral agents as well as insulin and he has a history of congestive heart failure for which she takes Lasix. He states that lately he has been having less urine output than usual. MD Complaint: shortness of breath from er records Patient has a longstanding history of poorly controlled diabetes with ocular complications. Patient has YESSENIA, uses a CPAP at night. Patient has longstanding volume overload, density for weeping edema. Patient gives a history of dyspnea on exertion. Hospital Course Hospital Course: Laboratory Tests 01/29/21 01/29/21 01/29/21 14:20 14:20 17:05 WBC 8.1 RBC 4.62 Hgb 10.4 L Hct 34.6 L MCV 75.0 L MCH 22.6 L MCHC 30.1 L RDW 15.8 Plt Count 365 MPV 8.9 Neut % (Auto) 83.2 H Lymph % (Auto) 11.5 [place] % (Auto) 4.6 Eos % (Auto) 0.5 Baso % (Auto) 0.3 Neut # (Auto) 6.7 Lymph # (Auto) 0.9 [place] # (Auto) 0.4 Eos # (Auto) 0.0 Baso # (Auto) 0.0 Sodium 138 Potassium 4.9 Chloride 96 L Carbon Dioxide 31 H Anion Gap 15.9 H BUN 49 H Creatinine 1.40 H Estimated Creat Clear 62 Estimated GFR 54 L Est GFR ( Amer) 65 Glucose 478 H* POC Glucose Random Glucose Hemoglobin A1c Calcium 8.5 Total Bilirubin 0.3 AST 71 H ALT 84 H Alkaline Phosphatase 175 H Troponin I < 0.01 NT-Pro-B Natriuret Pep 26.8 Total Protein 7.3 Albumin 4.3 Globulin 3.0 Albumin/Globulin Ratio 1.4 TSH Urine Color Straw Urine Appearance Clear Urine pH 6.0 Ur Specific [place] 1.010 Urine Protein 1+ Urine Glucose (UA) 3+ Urine Ketones Negative Urine Blood Trace-l Urine Nitrate Negative Urine Bilirubin Negative Urine Urobilinogen 0.2 Ur Leukocyte Esterase Negative Urine RBC Occasional Urine WBC Occasional Ur Squamous Epith Cells Occasional Urine Bacteria Trace SARS-CoV-2 (PCR) Influenza A Untype (PCR) Influenza Type B (PCR) 01/29/21 01/29/21 01/29/21 18:09 18:26 19:34 WBC RBC Hgb Hct MCV MCH MCHC RDW Plt Count MPV Neut % (Auto) Lymph % (Auto) [place] % (Auto) Eos % (Auto) Baso % (Auto) Neut # (Auto) Lymph # (Auto) [place] # (Auto) Eos # (Auto) Baso # (Auto) Sodium Potassium Chloride Carbon Dioxide Anion Gap BUN Creatinine Estimated Creat Clear Estimated GFR Est GFR ( Amer) Glucose POC Glucose 346 H* Random Glucose Hemoglobin A1c Calcium Total Bilirubin AST ALT Alkaline Phosphatase Troponin I < 0.01 NT-Pro-B Natriuret Pep Total Protein Albumin Globulin Albumin/Globulin Ratio TSH Urine Color Urine Appearance Urine pH Ur Specific [place] Urine Protein Urine Glucose (UA) Urine Ketones Urine Blood Urine Nitrate Urine Bilirubin Urine Urobilinogen Ur Leukocyte Esterase Urine RBC Urine WBC Ur Squamous Epith Cells Urine Bacteria SARS-CoV-2 (PCR) Not detected Influenza A Untype (PCR) Not detected Influenza Type B (PCR) Not detected 01/29/21 01/30/21 01/30/21 21:48 02:40 06:01 WBC RBC Hgb Hct MCV MCH MCHC RDW Plt Count MPV Neut % (Auto) Lymph % (Auto) [place] % (Auto) Eos % (Auto) Baso % (Auto) Neut # (Auto) Lymph # (Auto) [place]
[2021-02-01 16:43] LABS: POC Glucose,Bedside 332 (70-110)
== END 2021-02-01 18:45 | disposition home or self-care (01) ==
LOC: ER 18:15 → 2ND 18:34
PROVIDERS: Family Medicine; Admitting Provider Family Medicine; Emergency Provider Emergency Medicine; PCP Emergency Medicine; Visit Provider Emergency Medicine
DX: I50.33 Acute on chronic diastolic (congestive) heart failure (principal); Z20.822 Contact with and (suspected) exposure to COVID-19; I25.10 Atherosclerotic heart disease of native coronary artery without angina pectoris; I11.0 Hypertensive heart disease with heart failure; I25.118 Atherosclerotic heart disease of native coronary artery with other forms of angina pectoris; E11.319 Type 2 diabetes mellitus with unspecified diabetic retinopathy without macular edema; Z79.4 Long term (current) use of insulin; L03.116 Cellulitis of left lower limb; L03.115 Cellulitis of right lower limb; I48.91 Unspecified atrial fibrillation; F17.290 Nicotine dependence, other tobacco product, uncomplicated; E66.01 Morbid (severe) obesity due to excess calories; Z68.41 Body mass index [BMI] 40.0-44.9, adult
CPT/HCPCS: G0378; 36415; 71045; 80048; 80053; 81001; 82947; 82962; 83036; 83880; 84443; 84484; 85025; 93005; 93306; 93970; 94660; 96374; 99284; J0456; U0003

== ENCOUNTER 2021-02-02 07:10 | Emergency (ER) | payer MEDICARE, SELFPAY ==
[2021-02-02 07:11] VITALS: BP 112/61; PULSE 73; RESP 16; TEMP 36.5; O2SAT 97; BMI 42.5
--- NOTE | 2021-02-02 07:36 | PC.NURSE ---
Pt continuously yelling out for help and for the doctor to come in the room. Explained to pt that he just got here and that as soon as we had his labs drawn and some results we would know how to better treat him
--- NOTE | 2021-02-02 07:40 | PC.NURSE ---
Urine sent to lab at this time
[2021-02-02 07:50] LABS: Microscopic, Urine URINE MICROSCOPIC (MICROSCOPIC)
[2021-02-02 07:52] LABS: Appearance,Urine CLEAR (Clear); Bilirubin,Urine Negative (Negative); Blood, Urine 1+ (Negative); Color,Urine YELLOW (Yellow); Glucose,Urine (UA) 3+ (Negative); Ketones,Urine Negative (Negative); Leukocyte Esterase,Urine Negative (Negative); Nitrate,Urine Negative (Negative); PH,Urine 5.5 (5.0-8.5); Protein,Urine 1+ (Negative); Specific Gravity, Urine 1.015 (1.005-1.030); Urobilinogen,Urine 0.2 EU/dl (0.2)
--- NOTE | 2021-02-02 07:56 | CT_ITS ---
PROCEDURE: CT ABDOMEN PELVIS WO CON CLINICAL INDICATION: LOWER BACK PAIN THAT RADIATES TO RIGHT SIDE COMPARISON: No exams were available for comparison TECHNIQUE: Axial images obtained with sagittal and coronal reformats. All CT scans at the facility use one or more dose reduction, viz: automated exposure control, ma/kV adjustment per patient size (including targeted exams where dose is matched to indication, i.e. head), or iterative reconstruction technique. FINDINGS: LOWER THORAX: Motion artifact which somewhat obscures fine detail in the lung bases. No acute finding. ABDOMEN & PELVIS: Fatty liver with hepatomegaly. Maximum AP dimension of the liver is 26 cm. Cephalo caudad dimension is 27 cm. No radiopaque gallstone. Mild splenomegaly at 14 cm. There are scattered small epigastric nodes. The pancreas and adrenal glands are unremarkable. No renal calculi. No ureteral calculi. There is minimal fullness of the right renal calices. This is of questionable clinical significance and could be normal variation or related to urinary tract infection. Please correlate with laboratory values. The most anterior aspect of the abdomen is not included on the images secondary to patient's body habitus. No intestinal obstruction. No obvious free air however, the anterior aspect of the abdomen is not visualized and free air may not be seen secondary to this fact. There are small mesenteric lymph nodes. Serpiginous air density noted in the right lower quadrant likely related to an air-filled appendix. The oropeza however are difficult to visualize. If there are clinical concerns of appendicitis then would recommend repeating exam with oral contrast to confirm that this is the appendix and not extra colonic air. No abnormal fluid collections evident in the pelvis. No pelvic mass apparent. No acute bony findings. IMPRESSION: 1. Somewhat limited exam due to patient's body habitus and incomplete coverage of the anterior abdominal wall. Free air could located within this area and not be identified. 2. Minimal fullness of the right renal collecting system which could be seen with urinary tract infection. No renal or ureteral calculi. 3. Scattered small retroperitoneal and mesenteric lymph nodes. 4. Serpiginous air density in the right lower quadrant consistent with air-filled appendix. The oropeza however are difficult to visualize in some areas possibly related to the technique. If there are clinical concerns of appendicitis then would recommend repeating exam with oral contrast to exclude the possibility of a small amount of extra colic gas. No stranding of the periappendiceal fat. No abnormal fluid collections. Dictated by: Mj Mcneil MD 02/02/2021 08:50 Mj Mcneil MD in [place] 02/02/2021 08:50
--- NOTE | 2021-02-02 08:01 | PC.NURSE ---
Ruperto Messina in the lab pt's blood work is hemolyzed.
--- NOTE | 2021-02-02 08:07 | PC.NURSE ---
Notified Rad that pt is ready for CT
[2021-02-02 08:17] LABS: Basophils # 0.1 K/mm3 (0-0.2); Basophils % 0.5 % (0.1-2.0); Eosinophils # 0.3 K/mm3 (0.0-0.4); Eosinophils % 2.8 % (0.1-12.0); Hematocrit 33.5 % (42.0-52.0); Hemoglobin 10.4 g/dL (14.1-18.0); Lymphocytes # 1.5 K/mm3 (0.7-4.5); Lymphocytes % 14.1 % (10-50); Mean Corpuscular Hemoglobin 22.5 pg (27.0-31.2); Mean Corpuscular Volume 72.7 fl (80-94); Mean Platelet Volume 7.5 fl (7.4-10.4); Monocytes # 0.5 K/mm3 (0.1-1.0); Monocytes % 4.9 % (1.7-9.3); Neutrophils # 7.9 K/mm3 (1.8-7.8); Neutrophils % 77.6 % (37.0-80.0); Platelet Count 363 K/mm3 (142-424); Red Blood Count 4.61 M/mm3 (4.60-6.20); Red Cell Distribution Width 15.9 % (11.5-17.5); White Blood Count 10.2 K/mm3 (4.8-10.8)
--- NOTE | 2021-02-02 08:18 | PC.NURSE ---
Pt to rad.
[2021-02-02 08:22] LABS: Chloride 93 mmol/L (98-107); Sodium 135 mmol/L (136-145)
--- NOTE | 2021-02-02 08:22 | PC.NURSE ---
patient returned from CT
[2021-02-02 08:23] LABS: Potassium 4.3 mmoL/L (3.5-5.1)
[2021-02-02 08:25] LABS: Alanine Aminotransferase 72 U/L (12-78); Albumin Level 4.4 g/dl (3.5-5.0); Albumin/Globulin Ratio 1.3 (1.1-1.8); Alkaline Phosphatase 131 U/L (38-126); Anion Gap 14.3 mEq/L (5-15); Aspartate Amino Transferase 133 U/L (17-59); Bilirubin,Total 0.5 mg/dl (0.2-1.3); Calcium 8.7 mg/dl (8.4-10.2); Carbon Dioxide 32 mmol/L (22.0-30.0); Creatinine Clearance Estimated 51 mL/min (50-200); Estimated Glomerular Filt Rate 43 ml/min (>60); GFR (African American) 52 ML/MIN (>60); Globulin 3.4 g/dL (1.3-3.2); Glucose 139 mg/dl (74-100); Lactic Acid 1.5 mmol/L (0.7-2.1); Total Protein,Serum 7.8 g/dl (6.3-8.2)
--- NOTE | 2021-02-02 08:32 | HMH.EDBACK ---
ED Disposition Clinical Impression: Acute lumbar myofascial strain Disposition: Home, Self-Care Condition on Discharge: Good Instructions: DI for Low Back Pain Additional Instructions: follow up with PCP. Avoid lifting and bending down. Return to ED if new symptoms. Bed rest for next 48 hours. Use medication as directed. Prescriptions: Etodolac [Lodine 400mg Tab] 400 mg PO TID 10 Days #30 tab Transmission Status: Pending to [facility] # Tizanidine HCl [Zanaflex 4mg tablet] 4 mg PO TID 7 Days #21 tab Transmission Status: Pending to [facility] # Referrals: Star Mathis MD [Primary Care Provider] - - Critical Care Critical Care Time: No Attestation: On 02/02/21, the high probability of a clinically significant, sudden or life threatening deterioration of the following system(s) required my full and direct attention, intervention and personal management. The time I documented below is in addition to time spent performing reported procedures but includes the following listed in this critical care notation. Medical Decision Making - Medical Records MR Comment: CT of the abdomen and pelvis was negative. he does not have any abdominal pain. no nephrolithiasis. - Fahad Inquiry Pt receiving controlled substance: No Fahad was queried for this patient: Yes Vital Signs: 02/02/21 07:11 02/02/21 09:06 02/02/21 09:36 Temperature 97.7 F Temperature Source Oral Pulse Rate 77 78 Pulse Rate [Right] 73 Respiratory Rate 16 Blood Pressure 108/61 L 106/52 L Blood Pressure [Right Arm] 112/61 Blood Pressure Mean 67 Blood Pressure Mean [Right Arm] 78 02 Sat by Pulse Oximetry 97 94 L 95 Oxygen Delivery Method Room Air Nasal Cannula Oxygen Flow Rate (LPM) 3 - Lab Data Lab Results 02/02/21 07:38: Urine Color Yellow, Urine Appearance Clear, Urine pH 5.5, Ur Specific [place] 1.015, Urine Protein 1+, Urine Glucose (UA) 3+, Urine Ketones Negative, Urine Blood 1+, Urine Nitrate Negative, Urine Bilirubin Negative, Urine Urobilinogen 0.2, Ur Leukocyte Esterase Negative, Urine RBC 3-5, Urine WBC 3-5, Ur Squamous Epith Cells 3-5, Urine Bacteria None 02/02/21 08:00: WBC 10.2, RBC 4.61, Hgb 10.4 L, Hct 33.5 L, MCV 72.7 L, MCH 22.5 L, MCHC 31.0 L, RDW 15.9, Plt Count 363, MPV 7.5, Neut % (Auto) 77.6, Lymph % (Auto) 14.1, [place] % (Auto) 4.9, Eos % (Auto) 2.8, Baso % (Auto) 0.5, Neut # (Auto) 7.9 H, Lymph # (Auto) 1.5, [place] # (Auto) 0.5, Eos # (Auto) 0.3, Baso # (Auto) 0.1 02/02/21 08:00: Sodium 135 L, Potassium 4.3, Chloride 93 L, Carbon Dioxide 32 H, Anion Gap 14.3, BUN 76 H D, Creatinine 1.70 H D, Estimated Creat Clear 51, Estimated GFR 43 L, Est GFR ( Amer) 52 L D, Glucose 139 H, Calcium 8.7, Total Bilirubin 0.5, AST 133 H D, ALT 72, Alkaline Phosphatase 131 H, Total Protein 7.8, Albumin 4.4, Globulin 3.4 H, Albumin/Globulin Ratio 1.3 02/02/21 08:00: Lactate 1.5 Result diagrams: 02/02/21 08:00 02/02/21 08:00 Orders (Tests/Meds): ED MEDICATIONS Discontinued Medications Generic Name Dose Route Start Last Admin Trade Name Sarkisq PRN Reason Stop Dose Admin Hydromorphone HCl 1 mg 02/02/21 08:31 02/02/21 08:35 Hydromorphone 2mg/Ml Syringe IV 02/02/21 08:32 1 mg ONCE ONE Administration Morphine Sulfate 4 mg 02/02/21 07:33 02/02/21 07:41 Morphine 4mg/Ml Syringe IV 02/02/21 07:34 4 mg ONCE ONE Administration Ondansetron HCl 4 mg 02/02/21 07:33 02/02/21 07:41 Ondansetron 4mg/2ml Vial IV 02/02/21 07:34 4 mg ONCE ONE Administration Tizanidine HCl 4 mg 02/02/21 08:26 Tizanidine 4mg Tablet PO 02/02/21 08:27 ONCE STA Back Pain HPI - General Chief Complaint: Back Pain/Injury Stated Complaint: back pain Time Seen by Provider: 02/02/21 08:32 Mode of Arrival: Family Vehicle Limitations: No Limitations Description of Symptoms (Recalled from ER Triage Doc. by RN): Patient c/o lower back pain for the last two days that radia
--- NOTE | 2021-02-02 08:33 | PC.NURSE ---
Called pharmacy for Stas
[2021-02-02 08:38] LABS: Blood Urea Nitrogen 76 mg/dl (9-20)
--- NOTE | 2021-02-02 08:38 | PC.NURSE ---
anjel in lab called critical BUN, pt name and verified notified ER at this time
[2021-02-02 09:06] VITALS: BP 108/61; PULSE 77; O2SAT 94
[2021-02-02 09:36] VITALS: BP 106/52; PULSE 78; O2SAT 95
--- NOTE | 2021-02-02 11:25 | PC.NURSE ---
Spoke with pt's and updated her on the plan of care.
--- NOTE | 2021-02-02 11:29 | PC.NURSE ---
Pt is sleeping soundly
--- NOTE | 2021-02-02 11:45 | PC.NURSE ---
Pt called to advise her that he is ready to be transported back home.
--- NOTE | 2021-02-02 11:47 | PC.NURSE ---
patient called for transportation home.
--- NOTE | 2021-02-02 12:08 | PC.NURSE ---
Spoke with pt's and she stated she would be here to get pt.
--- NOTE | 2021-02-02 13:21 | PC.NURSE ---
Attempted to call again to check on ETA and there is now no answer to that phone number.
--- NOTE | 2021-02-02 13:26 | PC.NURSE ---
Spoke with pt's daughter she stated pt's wofe should be here any minute to pick him up
[2021-02-02 13:42] VITALS: BP 132/89; PULSE 79; RESP 16; TEMP 36.8; O2SAT 98
== END 2021-02-02 13:47 | disposition home or self-care (01) ==
PROVIDERS: Emergency Provider Emergency Medicine; PCP Emergency Medicine
DX: S39.012A Strain of muscle, fascia and tendon of lower back, initial encounter (principal); I48.91 Unspecified atrial fibrillation; I25.10 Atherosclerotic heart disease of native coronary artery without angina pectoris; I50.9 Heart failure, unspecified; F41.8 Other specified anxiety disorders; E11.9 Type 2 diabetes mellitus without complications; E78.5 Hyperlipidemia, unspecified; I10 Essential (primary) hypertension; Z79.899 Other long term (current) drug therapy
CPT/HCPCS: 74176; 80053; 81001; 83605; 85025; 96365; 96375; 99283; J2405

== ENCOUNTER 2021-02-03 13:29 | Inpatient (IN) | payer MEDICARE, SELFPAY ==
[2021-02-03] VITALS (13 sets, daily range): BP systolic 124–157; BP diastolic 57–98; PULSE 72–88; RESP 16–20; TEMP 36.3–37.1; O2SAT 94–100; BMI 45.6; BMI 48.3
--- NOTE | 2021-02-03 13:50 | CT_ITS ---
PROCEDURE: CT LUMBAR SPINE WO CON CLINICAL HISTORY: Lower back pain COMPARISON: No exams were available for comparison TECHNIQUE: Axial images obtained with sagittal and coronal reformats. All CT scans at the facility use one or more dose reduction, viz: automated exposure control, ma/kV adjustment per patient size (including targeted exams where dose is matched to indication, i.e. head), or iterative reconstruction technique. FINDINGS: Normal alignment. No acute fracture or dislocation. No lytic or blastic change. Minimal bulging disc at L4-5 slightly eccentric toward the left with mild left lateral recess and foraminal narrowing. Borderline narrowing of the canal at 12 mm. L5-S1: Minimal bulging disc. Mildly distended urinary bladder. There is a mildly prominent lymph node in the left internal iliac chain 2.9 x 1.2 cm IMPRESSION: Minimal bulging disc at L4-5 slightly eccentric toward the left with mild left lateral recess and foraminal narrowing. Borderline narrowing of the canal at 12 mm. Minimal bulging disc at L5-S1 Mildly prominent left internal iliac lymph node Dictated by: Mj Mcneil MD 02/03/2021 15:14 Mj Mcneil MD in [facility] 02/03/2021 15:14
--- NOTE | 2021-02-03 13:50 | CT_ITS ---
PROCEDURE: CT HEAD/BRAIN WO CON CLINICAL INDICATION: Altered mental COMPARISON: No exams were available for comparison TECHNIQUE: Axial images obtained. All CT scans at the facility use one or more dose reduction, viz: automated exposure control, ma/kV adjustment per patient size (including targeted exams where dose is matched to indication, i.e. head), or iterative reconstruction technique. FINDINGS: No midline shift, mass effect, intracranial hemorrhage, hydrocephalus, or extra-axial fluid collection is evident. The calvarium has an unremarkable appearance. No mastoid effusion. No sinus air-fluid level. IMPRESSION: No acute intracranial finding Dictated by: Mj Mcneil MD 02/03/2021 15:09 Mj Mcneil MD in [facility] 02/03/2021 15:09
[2021-02-03 14:13] LABS: Chloride 88 mmol/L (98-107); Potassium 4.5 mmoL/L (3.5-5.1); Sodium 135 mmol/L (136-145)
[2021-02-03 14:14] LABS: ABG Base Excess 10.1 mmol/L (-2.4-2.3); ABG HCO3 34.5 mmhg (22.0-26.0); ABG Oxygen Saturation 88 % (90-100); ABG PH 7.43 mmol/L (7.35-7.45); ABG PO2 53.7 mmhg (80-100); ABG TCO2 36.1 mmhg (23-27)
[2021-02-03 14:15] LABS: Ammonia < 9 umol/L (9-30)
[2021-02-03 14:16] LABS: Allen's Test ACCEPTABLE; Oxygen ROOM AIR %; Source R RADIAL
[2021-02-03 14:16] LABS: Alanine Aminotransferase 132 U/L (12-78); Albumin Level 4.8 g/dl (3.5-5.0); Albumin/Globulin Ratio 1.3 (1.1-1.8); Alkaline Phosphatase 137 U/L (38-126); Anion Gap 14.5 mEq/L (5-15); Aspartate Amino Transferase 514 U/L (17-59); Bilirubin,Total 0.4 mg/dl (0.2-1.3); Calcium 9.1 mg/dl (8.4-10.2); Carbon Dioxide 37 mmol/L (22.0-30.0); Creatinine Clearance Estimated 51 mL/min (50-200); Estimated Glomerular Filt Rate 43 ml/min (>60); GFR (African American) 52 ML/MIN (>60); Globulin 3.6 g/dL (1.3-3.2); Glucose 175 mg/dl (74-100); Lactic Acid 1.3 mmol/L (0.7-2.1); Total Protein,Serum 8.4 g/dl (6.3-8.2)
[2021-02-03 14:18] LABS: ABG PCO2 53.6 mmhg (35.0-45.0)
[2021-02-03 14:19] LABS: Blood Urea Nitrogen 77 mg/dl (9-20)
[2021-02-03 14:20] LABS: Basophils % 0.2 % (0.1-2.0); Eosinophils % 0.1 % (0.1-12.0); Hematocrit 35.3 % (42.0-52.0); Hemoglobin 10.8 g/dL (14.1-18.0); Lymphocytes # 1.4 K/mm3 (0.7-4.5); Lymphocytes % 9.3 % (10-50); Mean Corpuscular HGB Conc 30.6 g/dL (31.8-35.4); Mean Corpuscular Hemoglobin 22.3 pg (27.0-31.2); Mean Corpuscular Volume 72.9 fl (80-94); Mean Platelet Volume 7.4 fl (7.4-10.4); Monocytes # 0.8 K/mm3 (0.1-1.0); Monocytes % 5.3 % (1.7-9.3); Neutrophils # 12.9 K/mm3 (1.8-7.8); Neutrophils % 85.2 % (37.0-80.0); Platelet Count 390 K/mm3 (142-424); Red Blood Count 4.84 M/mm3 (4.60-6.20); White Blood Count 15.2 K/mm3 (4.8-10.8)
[2021-02-03 14:22] LABS: MANUAL DIFFERENTIAL MANUAL DIFFERENTIAL (MANUAL DIFF)
--- NOTE | 2021-02-03 14:23 | PC.NURSE ---
ER MD aware of patient's ABG results and BUN result
--- NOTE | 2021-02-03 14:25 | HMH.EDBACK ---
ED Disposition Clinical Impression: Hypercapnia, COPD (chronic obstructive pulmonary disease), Change in mental status Disposition: Admitted as Observation Condition on Discharge: Good - Critical Care Critical Care Time: No Attestation: On 02/03/21, the high probability of a clinically significant, sudden or life threatening deterioration of the following system(s) required my full and direct attention, intervention and personal management. The time I documented below is in addition to time spent performing reported procedures but includes the following listed in this critical care notation. Medical Decision Making - Medical Records MR Comment: COPD with Hypercapnia and change in mental status. CT scan of the lumbosacral spine did not show any acute findings except degenerative changes and bulging disc. Called Dr. Mathis, he agreed on admission for observation. But not to give him any pain medications as and it interferes with his mental status and increase his somnolence. - Fahad Inquiry Pt receiving controlled substance: No Fahad was queried for this patient: No Vital Signs: 02/03/21 13:30 02/03/21 14:00 02/03/21 14:30 Temperature 98.7 F Temperature Source Oral Pulse Rate 78 76 Pulse Rate [Right] 72 Respiratory Rate 18 18 18 Blood Pressure 136/70 135/68 Blood Pressure [Right Arm] 140/62 Blood Pressure Mean Blood Pressure Mean [Right Arm] 88 Blood Pressure Source Automatic Cuff Automatic Cuff Blood Pressure Position Sitting Sitting 02 Sat by Pulse Oximetry 97 96 98 Oxygen Delivery Method Room Air Room Air Room Air 02/03/21 15:02 02/03/21 15:30 02/03/21 16:01 Temperature Temperature Source Pulse Rate 75 72 Pulse Rate [Right] Respiratory Rate 18 16 18 Blood Pressure 138/64 124/61 137/57 L Blood Pressure [Right Arm] Blood Pressure Mean 92 Blood Pressure Mean [Right Arm] Blood Pressure Source Blood Pressure Position 02 Sat by Pulse Oximetry 100 100 100 Oxygen Delivery Method BiPAP BiPAP - Lab Data Lab Results 02/03/21 13:50: Specimen Source R radial, O2 % Room air, ABG pH 7.43, ABG pCO2 53.6 H, ABG pO2 53.7 L, ABG HCO3 34.5 H, ABG Total CO2 36.1 H, ABG O2 Saturation 88 L, ABG Base Excess 10.1 H, Mj Test Acceptable 02/03/21 13:55: WBC 15.2 H D, RBC 4.84, Hgb 10.8 L, Hct 35.3 L, MCV 72.9 L, MCH 22.3 L, MCHC 30.6 L, RDW 16.0, Plt Count 390, MPV 7.4, Neut % (Auto) 85.2 H, Lymph % (Auto) 9.3 L, [place] % (Auto) 5.3, Eos % (Auto) 0.1, Baso % (Auto) 0.2, Neut # (Auto) 12.9 H, Lymph # (Auto) 1.4, [place] # (Auto) 0.8, Eos # (Auto) 0.0, Baso # (Auto) 0.0, Total Counted 100, Neutrophils % (Manual) 84 H, Lymphocytes % (Manual) 11, Monocytes % (Manual) 5, Platelet Estimate Normal, Microcytosis 1+, Spherocytes 2+ 02/03/21 13:55: Sodium 135 L, Potassium 4.5, Chloride 88 L, Carbon Dioxide 37 H, Anion Gap 14.5, BUN 77 H, Creatinine 1.70 H, Estimated Creat Clear 51, Estimated GFR 43 L, Est GFR ( Amer) 52 L, Glucose 175 H, Calcium 9.1, Total Bilirubin 0.4, AST 514 H* D, ALT 132 H D, Alkaline Phosphatase 137 H, Total Protein 8.4 H, Albumin 4.8, Globulin 3.6 H, Albumin/Globulin Ratio 1.3 02/03/21 13:55: Lactate 1.3 02/03/21 13:55: Ammonia < 9 L 02/03/21 13:55: Troponin I < 0.01, NT-Pro-B Natriuret Pep 510 H 02/03/21 15:41: SARS-CoV-2 (PCR) Not detected, Influenza A Untype (PCR) Not detected, Influenza Type B (PCR) Not detected Result diagrams: 02/03/21 13:55 02/03/21 13:55 Orders (Tests/Meds): ED MEDICATIONS Generic Name Dose Route Start Last Admin Trade Name Freq PRN Reason Stop Dose Admin Albuterol Sulfate 2.5 mg 02/03/21 15:43 Albuterol 0.083% 2.5 Mg/3 Ml Neb IH 03/05/21 15:42 Q1HP PRN Shortness Of Breath Albuterol Sulfate puffs 02/03/21 15:47 Albuterol-Hfa 90mcg/Puff Inhaler 8gm IH 03/05/21 15:46 Q4-6H PRN soa Aspirin 81 mg 02/04/21 09:00 Aspirin Ec 81mg Tablet PO 03/06/21 08:59 DAILY CARLIN Carvedilol 25 mg
[2021-02-03 14:35] LABS: Lymphocytes % 11 % (10-50); Monocytes % 5 % (2-9); Neutrophils % 84 % (42-76); Total Cells Counted 100
[2021-02-03 14:36] LABS: Microcytosis 1+; Platelet Estimate Normal; Spherocytes 2+
--- NOTE | 2021-02-03 14:36 | XR_ITS ---
PROCEDURE: XR CHEST AP CLINICAL HISTORY: dyspnea COMPARISON: CR XR CHEST PORTABLE from 01/23/2021 CR XR CHEST PORTABLE from 01/29/2021 CR XR CHEST PORTABLE from 01/31/2021 FINDINGS: Mild cardiomegaly without failure. There are low lung volumes with patchy areas of increased density in the right perihilar region and right lower lobe which may be due to areas of atelectasis or patchy ground-glass infiltrate. No acute bony abnormalities. IMPRESSION: Cardiomegaly with patchy infiltrate versus atelectatic change in the right perihilar region and right lung base Dictated by: Mj Mcneil MD 02/03/2021 15:16 Mj Mcneil MD in [facility] 02/03/2021 15:16
--- NOTE | 2021-02-03 14:46 | PC.NURSE ---
RT at bedside placing biPap
--- NOTE | 2021-02-03 14:47 | ECG_ITS ---
APPROVED REPORT Exam: Resting ECG HR:80 bpm ECG Measurements Heart Rate 80 AXES NE 142 P 48 QRSd 100 QRS 11 QT 392 T 37 QTc 452 Conclusion Normal sinus rhythm Normal ECG Electronically signed by : Cameron Kohli MD 02/04/2021 22:29:41
--- NOTE | 2021-02-03 14:55 | PC.NURSE ---
Patient placed on BiPap at this time
--- NOTE | 2021-02-03 15:03 | PC.NURSE ---
Paged Dr. Mathis for consult at this time
--- NOTE | 2021-02-03 15:04 | PC.NURSE ---
Gave status update to patient , María Elena at this time
[2021-02-03 15:06] LABS: NT Pro Brain Natriuretic Pep. 510 pg/mL (0-125)
[2021-02-03 15:10] LABS: Troponin I < 0.01 ng/ml (0.00-0.034)
--- NOTE | 2021-02-03 15:30 | PC.NURSE ---
MIRTHA CARLISLE speaking Dr. Mathis
--- NOTE | 2021-02-03 15:30 | PC.NURSE ---
MIRTHA CARLISLE consulting with Dr. Mathis at this time
[2021-02-03 15:52] LABS: Coronavirus 19, PCR Not Detected (NotDetected); Influenza A, PCR Not Detected (NotDetected); Influenza B, PCR Not Detected (NotDetected)
--- NOTE | 2021-02-03 16:36 | PC.NURSE ---
ER MD gave verbal order for levaquin 750 mg per IV q24 h r/t copd exacerbation possible infiltrate on chest xray read per radiologist
--- NOTE | 2021-02-03 16:45 | PC.NURSE ---
Called report to Cyn SÁNCHEZ at this time
[2021-02-03 18:02] LABS: POC Glucose,Bedside 207 (70-110)
[2021-02-03 18:36] LABS: Troponin I < 0.01 ng/ml (0.00-0.034)
[2021-02-03 21:26] LABS: Troponin I < 0.01 ng/ml (0.00-0.034)
[2021-02-04 01:27] LABS: POC Glucose,Bedside 338 (70-110)
[2021-02-04 05:37] LABS: POC Glucose,Bedside 339 (70-110)
[2021-02-04 06:23] VITALS: BP 121/76; PULSE 76; RESP 24; TEMP 36.6; O2SAT 100
--- NOTE | 2021-02-04 06:33 | PC.NURSE ---
Patient very restless having difficulty keeping mask on and being disoriented at times, continues to take off pulse ox, continues to try to get out of bed or up from the chair even with redirecting. No s/s of acute distress noted this shift, call light within reach, bed at lowest level for safety; will continue to monitor.
--- NOTE | 2021-02-04 07:53 | P.CONPHA_ITS ---
[facility] Pharmacy VTE Monitoring - Patient Demographics Admission date: 02/04/21 Report Date: 02/04/21 Time: 07:53 Allergies/Adverse Reactions: Patient Allergies pregabalin [From Lyrica] Adverse Reaction (Verified 01/18/21 10:24) made skin crawl Height: 1.73 m Weight: 144.299 kg Patient Problems: Current Active Problems Hypercapnia (Acute) COPD (chronic obstructive pulmonary disease) (Acute) Change in mental status (Acute) - VTE Risk Labs: VTE Related Lab Results Hgb 10.8 g/dL (14.1-18.0) L 02/03/21 13:55 Hct 35.3 % (42.0-52.0) L 02/03/21 13:55 Plt Count 390 K/mm3 (142-424) 02/03/21 13:55 BUN 77 mg/dl (9-20) H 02/03/21 13:55 Creatinine 1.70 mg/dl (0.66-1.25) H 02/03/21 13:55 Estimated Creat Clear 51 mL/min (50-200) 02/03/21 13:55 Was VTE Risk Assessment Performed: Yes VTE Score: 9 VTE Risk Level: Moderate Risk Clinical Trial Participant: No - Prophylaxis VTE Prophylaxis Ordered?: Yes Types of VTE Prophylaxis: TEDS Knee High
[2021-02-04 08:00] VITALS: BP 134/70; PULSE 76; RESP 19; TEMP 36.8; O2SAT 97
--- NOTE | 2021-02-04 09:05 | CT_ITS ---
PROCEDURE: CT ABDOMEN PELVIS W CON CLINICAL INDICATION: back pain and elevated liver enzymes . Follow-up abnormal abdomen CT COMPARISON: CT CT ABDOMEN PELVIS WO CON from 02/02/2021 TECHNIQUE: IV Contrast: 75ML Isovue 370 Oral Contrast 10ml Gastroview Axial images obtained with sagittal and coronal reformats. All CT scans at the facility use one or more dose reduction, viz: automated exposure control, ma/kV adjustment per patient size (including targeted exams where dose is matched to indication, i.e. head), or iterative reconstruction technique. FINDINGS: LOWER THORAX: Atelectatic change right lung base. ABDOMEN & PELVIS: Hepatomegaly with fatty liver. No focal liver lesion evident. Once again part of the anterior abdominal wall is not included in the images this time along the left anterior lateral abdominal wall. No free air is evident. Mild splenomegaly at 14 cm. The adrenal glands and pancreas have an unremarkable appearance. Two small right renal calculi suspected at 2 and 3 mm. No ureteral calculi. There are few scattered small retroperitoneal and pelvic lymph nodes. No hydronephrosis. Previously noted haziness of the right kidney is no longer apparent. There is a mild amount of retained colonic feces. No evidence of appendicitis. Previously noted air within the right lower quadrant represented air within the appendix. Part of the descending colon is cut off on the images in the left upper abdominal region. Of the visualized colon, no evidence of diverticulitis. No free air apparent. Urinary bladder is distended. There are few small nodes in the periaortic region nonspecific. Mildly prominent node is present in the central mesenteric region 2.6 x 1.6 cm no acute bony findings. IMPRESSION: 1. Somewhat limited study due to patient's body habitus, motion artifact, and inability to cover the entire abdomen in the field of view. 2. No intestinal obstruction or free air. Previously noted serpiginous air density in the right lower quadrant represented air-filled appendix. No evidence of appendicitis. 3. Hepatosplenomegaly with diffuse fatty liver 4. Mildly prominent lymph nodes in the mesenteries retroperitoneum and pelvic region. These are nonspecific and not significantly changed. Dictated by: Mj Mcneil MD 02/04/2021 12:36 Mj Mcneil MD in [facility] 02/04/2021 12:36
--- NOTE | 2021-02-04 09:11 | HMH.CNCARD ---
History of Present Illness Consult date: 02/04/21 Requesting physician: Bert Villagomez Consult reason: shortness of breath Chief complaint: back pain and SOA History of present illness: This is a 50-year-old gentleman who was recently discharged from the hospital here at [facility] on Monday after being treated for CHF. The patient represented to the emergency department yesterday with complaints of lower back pain that radiates into his right hip. The patient was seen in the ED earlier in the day yesterday and discharged. The patient then represented stating he had altered mental status associated with his back pain and shortness of air. According to his ER note the patient states he had back pain that started approximately 3 days ago, but on my examination of the patient he states he has been having the back pain for approximately a month. He took 2 Lortab tablets yesterday and he had an altered mental status and it was hard to keep him awake after taking his pain pills so his family called EMS to have him brought back to the emergency department. The patient falls asleep easily. He does have severe obstructive sleep apnea and reports he has been using his CPAP machine at night but his family states he has not been using his CPAP machine. He is also complaining of shortness of breath. He states he is short of breath all the time. It is worse with exertion and does improve slightly with rest. His oxygen saturations were 88% on room air when he was admitted to the hospital. The patient denies any chest pain or pressure. The patient states that the back pain was severe. He denied any recent injury causing the back pain. He does report he has had chronic back pain for several years but it significantly worsened in the last year. His family reports that he is getting very lethargic when he does take his medications and it is unclear whether or not he is taking all of his medications as prescribed. For his congestive heart failure the patient has not been adhering to his fluid restrictions. On recent discharge from the hospital the patient's weight was 306 pounds. Yesterday there are 2 weights listed for the patient, 300 pounds and 318 pounds. His BNP is elevated at 510 which is also increased. He denies any fever, chills, nausea, vomiting, diarrhea, PND. He does have associated orthopnea with his shortness of breath. His liver enzymes are also elevated. [facility] History I have reviewed the patient's past medical history: Yes Medical History: Reports:: Anxiety, Atrial Fibrillation, Congestive Heart Failure, Congenital Heart Disease, Coronary Artery Disease, Depression, Diabetes Mellitus Type 2, Gastroesophageal Reflux Disease(GERD), Hyperlipidemia, Hypertension, Renal Disease Denies:: Cancer, Diabetes Mellitus Type 1, MRSA *Have you ever received a pneumonia vaccine?: Yes *Have you received a flu vaccine this season?: Yes Other Surgeries: Yes: No Previous Surgery, Angiogram (11/13/17 no stenting), Cardiac Catheterization Amputation: No Fractures: Yes - *Social History Smoking Status: Former smoker Tobacco Type: smokeless tobacco Alcohol Intake: former Alcohol Intake Frequency:: 3 or more drinks per day Substance Use Type: denies use *Occupational Status:: disabled Household Members: family *Travel in the last 8 weeks: None - Psychiatric History Pschychiatric History:: Reports:: Anxiety, Depression Family Hx:: Heart Attack, Hypertension, Substance abuse, Alcoholism Meds Home Medications Medication Instructions Recorded Confirmed Type aspirin 81 mg tablet,delayed 81 mg PO DAILY tab 10/27/17 02/03/21 History release pantoprazole 40 mg tablet,delayed 40 mg PO QAM 10/27/17 02/03/21 History release omega-3 acid ethyl esters 1 gram 4 cap PO DAILY cap 11/08/17 02/03/21 History capsule albuterol sulfate 90 mcg/actuation 2 puff INHALATION Q4-6H PRN 01/18/21 02/03/21 History aerosol inhaler bupropion HCl (smoking d
[2021-02-04 09:12] LABS: Basophils % 0.1 % (0.1-2.0); Eosinophils % 0.1 % (0.1-12.0); Hematocrit 35.8 % (42.0-52.0); Hemoglobin 10.6 g/dL (14.1-18.0); Lymphocytes # 0.7 K/mm3 (0.7-4.5); Lymphocytes % 4.4 % (10-50); Mean Corpuscular HGB Conc 29.6 g/dL (31.8-35.4); Mean Corpuscular Hemoglobin 22.5 pg (27.0-31.2); Mean Platelet Volume 8.4 fl (7.4-10.4); Monocytes # 0.7 K/mm3 (0.1-1.0); Monocytes % 4.2 % (1.7-9.3); Platelet Count 372 K/mm3 (142-424); Red Blood Count 4.72 M/mm3 (4.60-6.20); Red Cell Distribution Width 15.9 % (11.5-17.5); White Blood Count 16.5 K/mm3 (4.8-10.8)
[2021-02-04 09:15] LABS: MANUAL DIFFERENTIAL MANUAL DIFFERENTIAL (MANUAL DIFF)
[2021-02-04 09:22] LABS: Chloride 85 mmol/L (98-107)
[2021-02-04 09:23] LABS: Potassium 5.2 mmoL/L (3.5-5.1); Sodium 132 mmol/L (136-145)
[2021-02-04 09:25] LABS: Creatinine Clearance Estimated 51 mL/min (50-200); Estimated Glomerular Filt Rate 43 ml/min (>60); GFR (African American) 52 ML/MIN (>60)
[2021-02-04 09:26] LABS: Anion Gap 13.2 mEq/L (5-15); Calcium 8.7 mg/dl (8.4-10.2); Carbon Dioxide 39 mmol/L (22.0-30.0)
[2021-02-04 09:30] LABS: Lymphocytes % 5 % (10-50); Monocytes % 4 % (2-9); Neutrophils % 91 % (42-76); Total Cells Counted 100
[2021-02-04 09:31] LABS: Hypochromasia 2+; Macrocytosis 2+; Platelet Estimate Normal
[2021-02-04 09:42] LABS: Blood Urea Nitrogen 76 mg/dl (9-20); Glucose 453 mg/dl (74-100)
--- NOTE | 2021-02-04 09:54 | HMH.PHAINT ---
home medication list verified using list from last discharge from [facility] in early January. Also used list from outpatient pharmacy to try and clarify insulin regimens
--- NOTE | 2021-02-04 10:10 | HMH.HP ---
*Admission Date: 02/04/21 *Chief complaint: Low Back Pain *History of present illness: 50-year-old male patient presented to the [facility] emergency department via EMS with complaints of lower back pain radiating into right hip. Family also reports yesterday he was taking pain medications and became extremely sleepy. Family also reports he has a longstanding history of sleep apnea and refuses to wear his CPAP machine at night and he falls asleep very easily during the day. He denies any fever/chills/body aches or nausea/vomiting/diarrhea, has taste and smell. He was in the emergency department yesterday complaining of lower back pain also. In the emergency department blood glucose was 338, he does have a history of noncompliance with his diabetes regimen, AST 514, ALT [address] revealed no acute findings L-spine CT revealed minimal bulging disks L4-L5 02/03/21 CXR: IMPRESSION: Cardiomegaly with patchy infiltrate versus atelectatic change in the right perihilar region and right lung base Dictated by: Mj Mcneil MD 50-year-old male patient sitting up on the side of the bed BiPAP in place 16/645% O2 oxygen saturations 94%. He does report lower back pain radiating into bilateral thighs, denies any lower back injuries [facility] History I have reviewed the patient's past medical history: Yes Medical History: Reports:: Anxiety, Atrial Fibrillation, Congestive Heart Failure, Congenital Heart Disease, Coronary Artery Disease, Depression, Diabetes Mellitus Type 2, Gastroesophageal Reflux Disease(GERD), Hyperlipidemia, Hypertension, Renal Disease Denies:: Cancer, Diabetes Mellitus Type 1, MRSA *Have you ever received a pneumonia vaccine?: Yes *Have you received a flu vaccine this season?: Yes Other Surgeries: Yes: No Previous Surgery, Angiogram (11/13/17 no stenting), Cardiac Catheterization Amputation: No Fractures: Yes - *Social History Smoking Status: Former smoker Tobacco Type: smokeless tobacco Alcohol Intake: former Alcohol Intake Frequency:: 3 or more drinks per day Substance Use Type: denies use *Occupational Status:: disabled Household Members: family *Travel in the last 8 weeks: None - Psychiatric History Pschychiatric History:: Reports:: Anxiety, Depression Family Hx:: Heart Attack, Hypertension, Substance abuse, Alcoholism Review of Systems - Review of Systems Review of systems:: pertinent systems reviewed and negative unless documented below - Constitutional Reports lack of energy, Reports weakness, Denies anorexia - Eyes Denies blurry vision, Denies double vision - ENT Denies abnormal hearing, Denies difficulty swallowing - *Cardiovascular Reports shortness of breath, Reports shortness of breath with activity, Denies chest pain - *Respiratory Reports cough, Reports shortness of breath, Reports shortness of breath with activity, Reports wheezing, Denies chest congestion - *Gastrointestinal Denies abdominal pain, Denies change in bowel habits - *Musculoskeletal Reports abnormal walking, Reports back pain, Reports radiating pain into limb - Integumentary/Breasts Denies change in skin color, Denies itching - *Neurologic Reports abnormal walking, Reports radiating pain - Psychiatric Reports anxiety, Denies change in appetite - Endocrine Denies cold intolerance, Denies rapid, pounding, or irregular heartbeat - Hematologic/Lymphatic Denies easy bleeding, Denies enlarged lymph nodes - Allergic/Immunologic Denies lip swelling, Denies tongue swelling Meds Home Medications Medication Instructions Recorded Confirmed Type aspirin 81 mg tablet,delayed 81 mg PO DAILY tab 10/27/17 02/03/21 History release pantoprazole 40 mg tablet,delayed 40 mg PO DAILY 10/27/17 02/04/21 History release omega-3 acid ethyl esters 1 gram 4 cap PO DAILY cap 11/08/17 02/03/21 History capsule albuterol sulfate 90 mcg/actuation 2 puff INHALATION Q4-6H PRN 01/18/21 02/03/21 Histo
--- NOTE | 2021-02-04 10:11 | US_ITS ---
PROCEDURE: US ABDOMEN COMPLETE CLINICAL INDICATION: Elevated Liver Enzymes COMPARISON: CT CT ABDOMEN PELVIS W CON from 02/04/2021 FINDINGS: PANCREAS: Pancreas is not well delineated due to overlying bowel gas. CT or MRI without and with contrast with pancreatic protocol may provide further evaluation if clinically desired. LIVER: There is diffuse fatty liver infiltration with poor through transmission of sound. The liver is poorly demonstrated due to the diffuse fatty infiltration. RIGHT KIDNEY: Poorly visualized. No hydronephrosis apparent. LEFT KIDNEY: Unremarkable. Normal size and echogenicity. No hydronephrosis GALLBLADDER: No gallstones, gallbladder wall thickening, pericholecystic fluid, or biliary dilatation. AORTA: Not visualized. The aorta has an unremarkable appearance on recent CT scan SPLEEN: Not adequately visualized ASCITES: None demonstrated. IMPRESSION: Very limited study due to patient's body habitus and diffuse fatty liver infiltration with poor through transmission of sound. No gallstones apparent. No hydronephrosis Dictated by: Mj Mcneil MD 02/04/2021 16:52 Mj Mcneil MD in [place] 02/04/2021 16:52
[2021-02-04 12:50] LABS: POC Glucose,Bedside 477 (70-110)
[2021-02-04 13:36] LABS: POC Glucose,Bedside 464 (70-110)
[2021-02-04 16:00] VITALS: BP 117/93; PULSE 64; RESP 20; TEMP 36.8; O2SAT 98
--- NOTE | 2021-02-04 16:27 | PC.NURSE ---
Have had to call Williams Castro APRN for prn meds - tylenol and morphine this am, the called Dr. Villagomez and he ordered 4 mg q 4 after 2 mg wasnt effective. After administering the 4 mg of morphine per aug, pt was still screaming and moaning out stating he was hurting in his R flank, abd and leg. This RN called and spoke with Dr. Villagomez and he changed morphine to Dilaudid. He also gave order for toradol per aug. Pt is sitting up in chair asleep at this time. Family has been at bedside this afternoon. Clip alarm in place for safety. Pt has been refusing bipap this shift and is currently on 3 L. Have made MD Williams Castro APRN aware of blood glucose of 477 this am, he ordered to give 20 units of ssi. Pt has been educated on risks of not wearing bipap and he has been made aware he is on a fluid restriction. Dr. Villagomez gave order for a diabetic diet. Did call and update Dr. Villagomez that CT of abd and pelvis was in chart. U/S pending. VSS. MX continues.
[2021-02-04 17:20] VITALS: RESP 16; RESP 18
--- NOTE | 2021-02-04 17:31 | PC.NURSE ---
Pt currently still up to chiar asleep. THis RN called RT and they came and placed him on bipap. FS checked at ths time and he was 216, pt not eating at this time, as he is asleep. MX continues.
[2021-02-04 18:24] LABS: POC Glucose,Bedside 216 (70-110)
--- NOTE | 2021-02-04 18:41 | PC.NURSE ---
Addendum entered by Contreras Bosch RN 02/04/21 19:19: and glucose of 453 Original Note: FS 176 at this time when rechecked. Pt still up to chair, asleep, with bipap in use.
[2021-02-04 18:46] LABS: POC Glucose,Bedside 176 (70-110)
--- NOTE | 2021-02-04 19:18 | PC.NURSE ---
Also notified Williams Castro APRN of BUN this am of 76.
[2021-02-04 20:00] VITALS: BP 120/90; RESP 17; TEMP 36.7; O2SAT 100
[2021-02-04 20:56] LABS: Microscopic, Urine URINE MICROSCOPIC (MICROSCOPIC)
[2021-02-04 21:00] LABS: Appearance,Urine SL CLOUDY (Clear); Bilirubin,Urine Negative (Negative); Blood, Urine 3+ (Negative); Color,Urine YELLOW (Yellow); Glucose,Urine (UA) 2+ (Negative); Ketones,Urine Negative (Negative); Leukocyte Esterase,Urine Negative (Negative); Nitrate,Urine POSITIVE (Negative); PH,Urine 5.5 (5.0-8.5); Protein,Urine 2+ (Negative); Specific Gravity, Urine 1.025 (1.005-1.030); Urobilinogen,Urine 0.2 EU/dl (0.2)
[2021-02-04 21:09] LABS: Benzodiazepines Screen,Urine Positive ng/ml (<200)
[2021-02-04 21:10] LABS: Amphetamine/Metha Screen,Urine Negative ng/ml (<1000)
[2021-02-04 21:11] LABS: Barbiturates Screen,Urine Negative ng/ml (<200); Opiate Screen,Urine Positive ng/ml (<300)
[2021-02-04 21:12] LABS: Phencyclidine Screen,Urine Negative ng/ml (<25)
[2021-02-04 21:13] LABS: Cannabinoid Screen,Urine Negative ng/ml (<50)
[2021-02-04 21:14] LABS: Cocaine Screen,Urine Negative ng/ml (<300)
[2021-02-04 21:15] LABS: Methadone Screen,Urine Negative ng/ml (<300)
[2021-02-04 21:40] LABS: Bacteria,Urine Trace /lpf
[2021-02-04 22:40] VITALS: RESP 16
[2021-02-04 23:30] LABS: POC Glucose,Bedside 195 (70-110)
[2021-02-05 04:00] VITALS: BP 158/63; PULSE 71; RESP 21; TEMP 36.8; O2SAT 95
--- NOTE | 2021-02-05 04:25 | PC.NURSE ---
NO acute changes this shift. PT has been alert to self this shift. Dilaudid given x2 for c/o pain in the lower back/flank. PT has rested much better this shift, chair alarm is on. PT has been on bipap throughout shift. Assist x2 to the BSC. VSS, call light in reach, clip alarm on, no concerns at this time.
[2021-02-05 05:00] VITALS: BMI 48.1
[2021-02-05 06:53] LABS: Basophils % 0.1 % (0.1-2.0); Eosinophils % 0.1 % (0.1-12.0); Hematocrit 33.2 % (42.0-52.0); Hemoglobin 10.1 g/dL (14.1-18.0); Lymphocytes # 1.6 K/mm3 (0.7-4.5); Mean Corpuscular HGB Conc 30.4 g/dL (31.8-35.4); Mean Corpuscular Hemoglobin 22.6 pg (27.0-31.2); Mean Corpuscular Volume 74.1 fl (80-94); Mean Platelet Volume 7.8 fl (7.4-10.4); Monocytes # 1.2 K/mm3 (0.1-1.0); Monocytes % 5.3 % (1.7-9.3); Neutrophils # 20.6 K/mm3 (1.8-7.8); Neutrophils % 87.6 % (37.0-80.0); Platelet Count 353 K/mm3 (142-424); Red Blood Count 4.48 M/mm3 (4.60-6.20); Red Cell Distribution Width 15.8 % (11.5-17.5); White Blood Count 23.6 K/mm3 (4.8-10.8)
[2021-02-05 06:58] LABS: POC Glucose,Bedside 277 (70-110)
[2021-02-05 06:58] LABS: POC Glucose,Bedside 266 (70-110)
[2021-02-05 06:58] LABS: Chloride 84 mmol/L (98-107); Potassium 5.1 mmoL/L (3.5-5.1); Sodium 135 mmol/L (136-145)
[2021-02-05 07:01] LABS: Anion Gap 17.1 mEq/L (5-15); Calcium 8.7 mg/dl (8.4-10.2); Carbon Dioxide 39 mmol/L (22.0-30.0); Creatinine Clearance Estimated 43 mL/min (50-200); Estimated Glomerular Filt Rate 36 ml/min (>60); GFR (African American) 43 ML/MIN (>60); Glucose 283 mg/dl (74-100)
[2021-02-05 07:36] LABS: MANUAL DIFFERENTIAL MANUAL DIFFERENTIAL (MANUAL DIFF)
[2021-02-05 07:52] VITALS: BP 139/81; PULSE 84; RESP 22; TEMP 36.8; O2SAT 92
[2021-02-05 08:13] LABS: ABG Base Excess 6.4 mmol/L (-2.4-2.3); ABG HCO3 32.9 mmhg (22.0-26.0); ABG Oxygen Saturation 93 % (90-100)
[2021-02-05 08:18] LABS: Allen's Test ACCEPTABLE; Oxygen 3LPM %; Source L RADIAL
[2021-02-05 08:19] LABS: ABG PCO2 68.9 mmhg (35.0-45.0)
[2021-02-05 08:24] LABS: Blood Urea Nitrogen 89 mg/dl (9-20)
--- NOTE | 2021-02-05 08:37 | XR_ITS ---
PROCEDURE: XR CHEST PORTABLE CLINICAL HISTORY: chf COMPARISON: CR XR CHEST PORTABLE from 01/29/2021 CR XR CHEST PORTABLE from 01/31/2021 CR XR CHEST AP from 02/03/2021 FINDINGS: Cardiomegaly without failure. Right perihilar and lower lobe atelectasis has also shown improvement. No acute bony abnormalities. IMPRESSION: Interval improvement right sided airspace disease. Dictated by: Mj Mcneil MD 02/05/2021 09:18 Mj Mcneil MD in [facility] 02/05/2021 09:19
--- NOTE | 2021-02-05 09:40 | HMH.PNCARD ---
Subjective Date: 02/05/21 Time: 09:15 Principal diagnosis: diastolic chf Interval history: This is a 50-year-old gentleman who was admitted to the hospital with complaints of back pain radiating into his right hip. The patient also has acute on chronic diastolic congestive heart failure. He has received IV Lasix overnight and he states that his shortness of breath is a little bit better today but he remains on a BiPAP. There has not been an accurate recording of the patient's output but he is down 1 pound overnight. The patient is very lethargic this morning. He is falling asleep in the middle of talking to me. He did have tramadol, morphine and Dilaudid yesterday and this morning. I think these medications may have him a little oversedated today and he is unable to answer most of my questions without falling asleep midsentence. He does deny any chest pain or pressure. He denies fever, chills, nausea, vomiting, diarrhea. He does have associated orthopnea with his shortness of breath. Exam Vital signs and Labs for Last 24 Hours: Temp Pulse Resp BP Pulse Ox 98.2 F 84 22 139/81 92 L 02/05/21 07:52 02/05/21 07:52 02/05/21 07:52 02/05/21 07:52 02/05/21 07:52 Laboratory Results - last 24 hr 02/03/21 20:50: Urine Color Yellow, Urine Appearance Sl cloudy, Urine pH 5.5, Ur Specific [place] 1.025, Urine Protein 2+, Urine Glucose (UA) 2+, Urine Ketones Negative, Urine Blood 3+, Urine Nitrate Positive, Urine Bilirubin Negative, Urine Urobilinogen 0.2, Ur Leukocyte Esterase Negative, Urine RBC 3-5, Urine WBC 5-10, Ur Squamous Epith Cells 3-5, Urine Bacteria Trace 02/03/21 20:50: Urine Opiates Screen Positive H, Urine Methadone Screen Negative, Ur Barbituates Screen Negative, Ur Phencyclidine Scrn Negative, Ur Amphetamines Screen Negative, U Benzodiazepines Scrn Positive H, Urine Cocaine Screen Negative, U Marijuana (THC) Screen Negative 02/04/21 09:00: Carbon Dioxide 39 H, Anion Gap 13.2, BUN 76 H, Creatinine 1.70 H, Estimated Creat Clear 51, Estimated GFR 43 L, Est GFR ( Amer) 52 L, Glucose 453 H* D, Calcium 8.7 02/04/21 11:35: POC Glucose 477 H* 02/04/21 13:27: POC Glucose 464 H* 02/04/21 17:27: POC Glucose 216 H 02/04/21 18:39: POC Glucose 176 H 02/04/21 23:01: POC Glucose 195 H 02/05/21 05:50: POC Glucose 266 H 02/05/21 06:23: WBC 23.6 H* D, RBC 4.48 L, Hgb 10.1 L, Hct 33.2 L, MCV 74.1 L, MCH 22.6 L, MCHC 30.4 L, RDW 15.8, Plt Count 353, MPV 7.8, Neut % (Auto) 87.6 H, Lymph % (Auto) 7.0 L, [place] % (Auto) 5.3, Eos % (Auto) 0.1, Baso % (Auto) 0.1, Neut # (Auto) 20.6 H, Lymph # (Auto) 1.6, [place] # (Auto) 1.2 H, Eos # (Auto) 0.0, Baso # (Auto) 0.0 02/05/21 06:23: Sodium 135 L, Potassium 5.1, Chloride 84 L, Carbon Dioxide 39 H, Anion Gap 17.1 H, BUN 89 H, Creatinine 2.00 H, Estimated Creat Clear 43, Estimated GFR 36 L, Est GFR ( Amer) 43 L, Glucose 283 H D, Calcium 8.7 02/05/21 06:44: POC Glucose 277 H 02/05/21 07:52: Specimen Source L radial, O2 % 3lpm, ABG pH 7.30 L, ABG pCO2 68.9 H, ABG pO2 73.0 L, ABG HCO3 32.9 H, ABG Total CO2 35.0 H, ABG O2 Saturation 93, ABG Base Excess 6.4 H, Mj Test Acceptable I & O for Last 24 hours: Intake & Output 02/02/21 02/03/21 02/04/21 02/05/21 23:59 23:59 23:59 23:59 Intake Total 1350 / 1350 0 / 0 Output Total 1000 / 1000 Balance -1000 / -1000 1350 / 1350 0 / 0 Weight 318 lb 2 oz 317 lb 7.45 oz Narrative: His symmetry strip is sinus rhythm. - Constitutional no acute distress, morbidly obese - *Routine HEENT Exam Head: Present: normocephalic, atraumatic Eye: Present: EOMI, PERRL ENT: Present: mucous membranes moist - *Routine Neck Exam Present: supple, full ROM, normal carotid upstroke. Absent: JVD, carotid bruit, lymphadenopathy - *Routine Respiratory Exam Present: decreased breath sounds, CTA bilaterally - *Routine Cardiovascular Exam Present: RRR, Normal S1, Normal S2. Absent: murmur - *Routine Abdominal Exam Present: soft, normoactive bowel sounds, diste
[2021-02-05 10:25] LABS: Hypochromasia 2+; Lymphocytes % 8 % (10-50); Microcytosis 1+; Monocytes % 4 % (2-9); Neutrophils % 78 % (42-76); Platelet Estimate Normal; Total Cells Counted 100
[2021-02-05 10:32] VITALS: O2SAT 100
[2021-02-05 11:04] LABS: ABG Base Excess 8.3 mmol/L (-2.4-2.3); ABG HCO3 33.3 mmhg (22.0-26.0); ABG Oxygen Saturation 97 % (90-100); ABG PH 7.39 mmol/L (7.35-7.45); ABG PO2 87.4 mmhg (80-100); Oxygen 3LPM %
[2021-02-05 11:05] LABS: ABG PCO2 56.2 mmhg (35.0-45.0); Allen's Test ACCEPTABLE; Source R RADIAL
--- NOTE | 2021-02-05 11:25 | HMH.ACPN2 ---
Internal Medicine - PN: Subj *Date: 02/05/21 *Time: 08:30 Interval history: pt sitting up in chair c/o back pain. Has o2 per nc while eating and encouraged to put bipap back on after eating. per RT bipap settings changed based on abg Exam Vital signs and Labs for Last 24 Hours: Temp Pulse Resp BP Pulse Ox 98.2 F 84 22 139/81 100 02/05/21 07:52 02/05/21 07:52 02/05/21 07:52 02/05/21 07:52 02/05/21 10:32 Laboratory Results - last 24 hr 02/03/21 20:50: Urine Color Yellow, Urine Appearance Sl cloudy, Urine pH 5.5, Ur Specific [place] 1.025, Urine Protein 2+, Urine Glucose (UA) 2+, Urine Ketones Negative, Urine Blood 3+, Urine Nitrate Positive, Urine Bilirubin Negative, Urine Urobilinogen 0.2, Ur Leukocyte Esterase Negative, Urine RBC 3-5, Urine WBC 5-10, Ur Squamous Epith Cells 3-5, Urine Bacteria Trace 02/03/21 20:50: Urine Opiates Screen Positive H, Urine Methadone Screen Negative, Ur Barbituates Screen Negative, Ur Phencyclidine Scrn Negative, Ur Amphetamines Screen Negative, U Benzodiazepines Scrn Positive H, Urine Cocaine Screen Negative, U Marijuana (THC) Screen Negative 02/04/21 11:35: POC Glucose 477 H* 02/04/21 13:27: POC Glucose 464 H* 02/04/21 17:27: POC Glucose 216 H 02/04/21 18:39: POC Glucose 176 H 02/04/21 23:01: POC Glucose 195 H 02/05/21 05:50: POC Glucose 266 H 02/05/21 06:23: WBC 23.6 H* D, RBC 4.48 L, Hgb 10.1 L, Hct 33.2 L, MCV 74.1 L, MCH 22.6 L, MCHC 30.4 L, RDW 15.8, Plt Count 353, MPV 7.8, Neut % (Auto) 87.6 H, Lymph % (Auto) 7.0 L, [place] % (Auto) 5.3, Eos % (Auto) 0.1, Baso % (Auto) 0.1, Neut # (Auto) 20.6 H, Lymph # (Auto) 1.6, [place] # (Auto) 1.2 H, Eos # (Auto) 0.0, Baso # (Auto) 0.0, Total Counted 100, Neutrophils % (Manual) 78 H, Band Neutrophils % 5.0, Lymphocytes % (Manual) 8 L, Atypical Lymphs % 1.0, Monocytes % (Manual) 4, Basophils % (Manual) 1.0, Metamyelocytes % 3.0 H, Platelet Estimate Normal, Hypochromasia 2+, Microcytosis 1+ 02/05/21 06:23: Sodium 135 L, Potassium 5.1, Chloride 84 L, Carbon Dioxide 39 H, Anion Gap 17.1 H, BUN 89 H, Creatinine 2.00 H, Estimated Creat Clear 43, Estimated GFR 36 L, Est GFR ( Amer) 43 L, Glucose 283 H D, Calcium 8.7 02/05/21 06:44: POC Glucose 277 H 02/05/21 07:52: Specimen Source L radial, O2 % 3lpm, ABG pH 7.30 L, ABG pCO2 68.9 H, ABG pO2 73.0 L, ABG HCO3 32.9 H, ABG Total CO2 35.0 H, ABG O2 Saturation 93, ABG Base Excess 6.4 H, Mj Test Acceptable 02/05/21 11:03: Specimen Source R radial, O2 % 3lpm, ABG pH 7.39, ABG pCO2 56.2 H, ABG pO2 87.4, ABG HCO3 33.3 H, ABG Total CO2 35.0 H, ABG O2 Saturation 97, ABG Base Excess 8.3 H, Mj Test Acceptable I & O for Last 24 hours: Intake & Output 02/02/21 02/03/21 02/04/21 02/05/21 11:59 11:59 11:59 11:59 Intake Total 480 / 480 870 / 870 Output Total 1000 / 1000 Balance -520 / -520 870 / 870 Weight 318 lb 2 oz 317 lb 7.45 oz - Constitutional no acute distress, morbidly obese - *Routine HEENT Exam Head: Present: normocephalic Eye: Present: PERRL ENT: Present: mucous membranes moist - *Routine Neck Exam Present: supple. Absent: lymphadenopathy - *Routine Respiratory Exam Present: wheezes - *Routine Cardiovascular Exam Present: RRR - *Routine Abdominal Exam Present: soft, normoactive bowel sounds. Absent: tenderness - *Routine Extremities Exam Absent: cyanosis, clubbing, edema - *Routine Skin Exam Present: warm. Absent: rash - *Routine Neurological Exam Present: alert, oriented X3 - Routine Psychiatric Exam Present: normal affect Assessment and Plan (1) SOB (shortness of breath) Status: Chronic Category: Medical Code(s): R06.02 - Shortness of breath (2) Low back pain Status: Acute Category: Medical Code(s): M54.5 - Low back pain (3) Elevated liver enzymes Status: Acute Category: Medical Code(s): R74.8 - Abnormal levels of other serum enzymes (4) Change in mental status Status: Acute Qualifiers: Altered mental status type: unspe
--- NOTE | 2021-02-05 11:49 | HMH.PULMCON ---
*Admission Date: 02/04/21 *Reason for consult:: Hypercarbic respiratory failure *History of present illness: Mr. Wyatt is a 50-year-old male admits 1 to 2 pack smoking history, denies any respiratory complaints, denies any use of inhalers or invasive ventilation at baseline presented to the hospital complaining of lower back pain radiating to the right hip was admitted to the hospital for further management. As per chart review patient was diagnosed with sleep apnea however refuses to use noninvasive ventilation and has significant daytime somnolence. Chart review also revealed that patient was prescribed inhalers as an outpatient basis. [facility] History Medical History: Reports:: Anxiety, Atrial Fibrillation, Congestive Heart Failure, Congenital Heart Disease, Coronary Artery Disease, Depression, Diabetes Mellitus Type 2, Gastroesophageal Reflux Disease(GERD), Hyperlipidemia, Hypertension, Renal Disease Denies:: Cancer, Diabetes Mellitus Type 1, MRSA *Have you ever received a pneumonia vaccine?: Yes *Have you received a flu vaccine this season?: Yes Other Surgeries: Yes: No Previous Surgery, Angiogram (11/13/17 no stenting), Cardiac Catheterization Amputation: No Fractures: Yes - *Social History Smoking Status: Former smoker Tobacco Type: smokeless tobacco Alcohol Intake: former Alcohol Intake Frequency:: 3 or more drinks per day Substance Use Type: denies use *Occupational Status:: disabled Household Members: family *Travel in the last 8 weeks: None - Psychiatric History Pschychiatric History:: Reports:: Anxiety, Depression Family Hx:: Heart Attack, Hypertension, Substance abuse, Alcoholism ROS - Review of Systems Limited as patient was lethargic and falling asleep easily - Cons Reports daytime sleepiness - Card Reports shortness of breath with activity - Resp Respiratory: Denies change in phlegm color, Denies chest congestion, Denies excessive phlegm production - GI Gastrointestingal: Denies: abdominal pain - Psych Reports abnormal sleep pattern Meds Home Medications Medication Instructions Recorded Confirmed Type aspirin 81 mg tablet,delayed 81 mg PO DAILY tab 10/27/17 02/03/21 History release pantoprazole 40 mg tablet,delayed 40 mg PO DAILY 10/27/17 02/04/21 History release omega-3 acid ethyl esters 1 gram 4 cap PO DAILY cap 11/08/17 02/03/21 History capsule albuterol sulfate 90 mcg/actuation 2 puff INHALATION Q4-6H PRN 01/18/21 02/03/21 History aerosol inhaler bupropion HCl (smoking deter) 150 150 mg PO BID 01/18/21 02/03/21 History mg tablet,12 hr sustained-release(smoking deterrent) buspirone 30 mg tablet 30 mg PO TID tab 01/18/21 02/03/21 History carvedilol 25 mg tablet 25 mg PO BID 01/18/21 02/03/21 History cholecalciferol (vitamin D3) 1,250 1,250 mcg PO WEEKLY 01/18/21 02/03/21 History mcg (50,000 unit) capsule duloxetine 30 mg capsule,delayed 60 mg PO DAILY cap 01/18/21 02/03/21 History release lorazepam 1 mg tablet 1 mg PO BIDP PRN 01/18/21 02/03/21 History losartan 100 mg tablet 100 mg PO DAILY 01/18/21 02/03/21 History magnesium oxide 400 mg PO DAILY 01/18/21 02/03/21 History pramipexole 1 mg tablet 1 mg PO TID 01/18/21 02/03/21 History quetiapine 300 mg tablet 600 mg PO HS tab 01/18/21 02/03/21 History umeclidinium 62.5 mcg-vilanterol 1 inh INHALATION DAILY 01/18/21 02/03/21 History 25 mcg/actuation powdr for inhalation Atorvastatin Calcium [Lipitor 80mg 80 mg PO DAILY 01/29/21 02/03/21 History Tablet*] Doxazosin Mesylate [Cardura 4mg 2 mg PO BID 01/29/21 02/03/21 History Tab] Gabapentin 800 mg PO TID 01/29/21 02/03/21 History Insulin Aspart [Insulin Aspart 75 unit SQ TIDWMEAL 01/29/21 02/04/21 History Flexpen] Insulin Glargine,Hum.rec.anlog 200 unit SQ HS 01/29/21 02/03/21 History [Maria Elena Lee] Furosemide [Lasix 80mg tablet] 80 mg PO DAILY 02/03/21 02/03/21 History Metformin HCl [Metformin HCl ER] 500 mg PO QPMWITHMEAL 01/24
--- NOTE | 2021-02-05 12:46 | PC.NURSE ---
LATE ENTRY. THIS MORNING APPROX. 0800 PT DISPLAYED AMS AND CONFUSION, MD VANEGAS WAS NOTIFIED OF PT AMS AND THAT LOW O2 SATURATION WAS NOTED. MD ORDERED ABG BE DRAWN. AFTER ARRIVING TO FLOOR WAS MADE AWARE OF ABG RESULTS. NO NEW ORDERS. WAS ALSO NOTIFIED LATER OF PT UNEVEN PUPIL SIZE. SAID HE WAS NOT CONCERNED WITH STROKE AT THIS TIME.
[2021-02-05 14:47] VITALS: BMI 48.1
[2021-02-05 15:21] VITALS: BP 139/98; PULSE 69; RESP 20; TEMP 36.3; O2SAT 99
[2021-02-05 15:30] LABS: Reflex Lactic Add Lactic Reflex
[2021-02-05 16:21] LABS: POC Glucose,Bedside 122 (70-110)
[2021-02-05 16:21] LABS: POC Glucose,Bedside 95 (70-110)
[2021-02-05 16:50] LABS: Lactic Acid Follow Up (RFLX 1) 0.9 mmol/L (0.7-2.1)
[2021-02-05 18:15] LABS: POC Glucose,Bedside 176 (70-110)
--- NOTE | 2021-02-05 18:36 | PC.NURSE ---
HE IS AO TO HIS NAME ONLY HAS BEEN CONFUSED T/O SHIFT, HE HAS BEEN TOLERATING 4LNC FOR O2 SUPPORT, HAS BEEN EATING MOST OF MEALS. HE HAS TOLERATED SITTING UP TO CHAIR ALL SHIFT. OTHERWISE NO ACUTE CHANGES
[2021-02-05 20:00] VITALS: BP 103/63; PULSE 80; RESP 20; TEMP 36.8; O2SAT 94
--- NOTE | 2021-02-05 23:30 | PC.NURSE ---
CALLED DOWN TO ER TO SPEAK WITH ,SPOKE WITH BURKE AND SHE SAID SHE WOULD TELL HIM,HE WAS WITH A PT,HALF HOUR LATER NO RETURN CALL,CALLED AGAIN AND SPOKE WITH ,TOLD HIM HOW PT WAS ACTING AND WAS HAVING PAIN,HE ORDERED TORADOL 30MG IV X 1 DOSE AND ATIVAN 1MG IV X 1 DOSE.
[2021-02-06] VITALS (9 sets, daily range): BP systolic 90–126; BP diastolic 60–70; PULSE 60–88; RESP 10–22; TEMP 36.7–37.2; O2SAT 92–100; BMI 48.1
[2021-02-06 00:01] LABS: POC Glucose,Bedside 334 (70-110)
--- NOTE | 2021-02-06 01:08 | PC.NURSE ---
CALLED TO ER TO SPEAK TO AND SPOKE WITH Bob AND HE WAS SUPPOSE TO TALK TO ROMINA,NO RESPOND.
--- NOTE | 2021-02-06 06:55 | PC.NURSE ---
PT HAS BEEN RESTLESS ALL NIGHT,WANTING TO GO FROM RECLINER TO BED AND THEN BACK AND FORTH.HE FINELY WENT TO SLEEP AROUND 3:30-04:00.WITH HIS OXYGEN PER NASAL CANNULA AT 3.HE REFUSED TO WEAR HIS BIPAP,HE HAS BEEN COMBATIVE AND AGITATED.HAS REFUSED BREATHING TX.HE WAS MEDICATED WITH TORADOL AND ATIVAN AT 23:50 .WITH GOING IN TO GIVE HIM HIS SOLU-MEDROL AND GET HIS V/S AND FSBS,PT WAS A LITTLE BLUE IN COLOR IN HIS FACE,HE HAD PULLED HIS OXYGEN OFF,OXYGEN SAT WAS 65,AND B/P WAS READING LOW,OXYGEN REAPPLIED PER NC AT 3 LITERS AND SAT FLAKITO TO 92%.B/P WAS 90/60 MANNUALLY.FSBS WAS 65.PT WAS IN A DEEP SLEEP,RESP,THERAPY IN ROOM AND SHE GOT AN ABG
[2021-02-06 07:17] LABS: ABG HCO3 31.7 mmhg (22.0-26.0); ABG Oxygen Saturation 82 % (90-100); ABG PH 7.22 mmol/L (7.35-7.45); ABG PO2 56.6 mmhg (80-100); ABG TCO2 34.1 mmhg (23-27)
[2021-02-06 07:22] LABS: POC Glucose,Bedside 65 (70-110)
[2021-02-06 07:39] LABS: Basophils % 0.1 % (0.1-2.0); Eosinophils % 0.2 % (0.1-12.0); Hematocrit 33.2 % (42.0-52.0); Lymphocytes # 1.7 K/mm3 (0.7-4.5); Lymphocytes % 6.8 % (10-50); Mean Corpuscular HGB Conc 30.1 g/dL (31.8-35.4); Mean Corpuscular Hemoglobin 22.3 pg (27.0-31.2); Mean Corpuscular Volume 74.2 fl (80-94); Mean Platelet Volume 7.7 fl (7.4-10.4); Monocytes # 1.5 K/mm3 (0.1-1.0); Monocytes % 5.9 % (1.7-9.3); Neutrophils # 22.3 K/mm3 (1.8-7.8); Platelet Count 349 K/mm3 (142-424); Red Blood Count 4.47 M/mm3 (4.60-6.20); Red Cell Distribution Width 16.2 % (11.5-17.5); White Blood Count 25.6 K/mm3 (4.8-10.8)
[2021-02-06 07:42] LABS: Chloride 89 mmol/L (98-107); MANUAL DIFFERENTIAL MANUAL DIFFERENTIAL (MANUAL DIFF); Potassium 4.2 mmoL/L (3.5-5.1); Sodium 138 mmol/L (136-145)
[2021-02-06 07:45] LABS: Anion Gap 17.2 mEq/L (5-15); Carbon Dioxide 36 mmol/L (22.0-30.0); Creatinine Clearance Estimated 22 mL/min (50-200); Estimated Glomerular Filt Rate 16 ml/min (>60); GFR (African American) 19 ML/MIN (>60)
[2021-02-06 07:46] LABS: Calcium 8.4 mg/dl (8.4-10.2); Glucose 58 mg/dl (74-100)
[2021-02-06 07:55] LABS: Blood Urea Nitrogen 121 mg/dl (9-20)
[2021-02-06 08:10] LABS: Allen's Test Patient Unable; Oxygen 3 LPM NC %; Source Right Radial
[2021-02-06 08:13] LABS: Anisocytosis 1+; Hypochromasia 2+; Lymphocytes % 22 % (10-50); Microcytosis 1+; Monocytes % 5 % (2-9); Neutrophils % 73 % (42-76); Platelet Estimate Normal; Total Cells Counted 100
--- NOTE | 2021-02-06 08:20 | INFXCTL.NOTE ---
Placed pt on bipap after results of gas given to nurse. Pt wore an hour or two. He woke up and starting pulling at the mask and threw it in the floor.
[2021-02-06 09:45] LABS: POC Glucose,Bedside 102 (70-110)
--- NOTE | 2021-02-06 10:06 | HMH.ACPN2 ---
Internal Medicine - PN: Subj *Date: 02/07/21 *Time: 04:11 Interval history: confused but aware of person and place - has abn abg and bmp- discussed with phar to adjust meds and start ivf Exam Vital signs and Labs for Last 24 Hours: Temp Pulse Resp BP Pulse Ox 98.9 F 78 18 108/62 L 98 02/06/21 08:00 02/06/21 08:00 02/06/21 08:00 02/06/21 08:00 02/06/21 08:00 Laboratory Results - last 24 hr 02/05/21 06:23: Total Counted 100, Neutrophils % (Manual) 78 H, Band Neutrophils % 5.0, Lymphocytes % (Manual) 8 L, Atypical Lymphs % 1.0, Monocytes % (Manual) 4, Basophils % (Manual) 1.0, Metamyelocytes % 3.0 H, Platelet Estimate Normal, Hypochromasia 2+, Microcytosis 1+ 02/05/21 11:03: Specimen Source R radial, O2 % 3lpm, ABG pH 7.39, ABG pCO2 56.2 H, ABG pO2 87.4, ABG HCO3 33.3 H, ABG Total CO2 35.0 H, ABG O2 Saturation 97, ABG Base Excess 8.3 H, Mj Test Acceptable 02/05/21 11:12: ABG Lactate 3.0 H 02/05/21 11:37: POC Glucose 122 H 02/05/21 14:25: POC Glucose 95 02/05/21 16:30: Lactate 0.9 02/05/21 18:03: POC Glucose 176 H 02/05/21 20:09: POC Glucose 334 H* 02/06/21 06:34: POC Glucose 65 L 02/06/21 07:18: WBC 25.6 H*, RBC 4.47 L, Hgb 10.0 L, Hct 33.2 L, MCV 74.2 L, MCH 22.3 L, MCHC 30.1 L, RDW 16.2, Plt Count 349, MPV 7.7, Neut % (Auto) 87.0 H, Lymph % (Auto) 6.8 L, [place] % (Auto) 5.9, Eos % (Auto) 0.2, Baso % (Auto) 0.1, Neut # (Auto) 22.3 H, Lymph # (Auto) 1.7, [place] # (Auto) 1.5 H, Eos # (Auto) 0.0, Baso # (Auto) 0.0, Total Counted 100, Neutrophils % (Manual) 73, Lymphocytes % (Manual) 22, Monocytes % (Manual) 5, Platelet Estimate Normal, Hypochromasia 2+, Anisocytosis 1+, Microcytosis 1+ 02/06/21 07:18: Sodium 138, Potassium 4.2, Chloride 89 L, Carbon Dioxide 36 H, Anion Gap 17.2 H, BUN 121 H* D, Creatinine 4.00 H D, Estimated Creat Clear 22, Estimated GFR 16 L*, Est GFR ( Amer) 19 L* D, Glucose 58 L, Calcium 8.4 02/06/21 09:19: POC Glucose 102 02/06/21 : Specimen Source Right radial, O2 % 3 lpm nc, ABG pH 7.22 L*, ABG pCO2 79.0 H, ABG pO2 56.6 L, ABG HCO3 31.7 H, ABG Total CO2 34.1 H, ABG O2 Saturation 82 L*, ABG Base Excess 4.0 H, Mj Test Patient unable I & O for Last 24 hours: Intake & Output 02/03/21 02/04/21 02/05/21 02/06/21 11:59 11:59 11:59 11:59 Intake Total 480 / 480 870 / 870 240 / 240 Output Total 1000 / 1000 425 / 425 Balance -520 / -520 870 / 870 -185 / -185 Weight 318 lb 2 oz 317 lb 7.45 oz 317 lb 7.45 oz Microbiology Reports for the Last 24 Hours: Microbiology 02/03/21 18:00 Blood Blood Culture - Preliminary NO GROWTH AFTER 48 HOURS 02/03/21 17:30 Blood Blood Culture - Preliminary NO GROWTH AFTER 48 HOURS - Constitutional combative, agitated - *Routine HEENT Exam Head: Present: normocephalic Eye: Present: EOMI, PERRL ENT: Present: mucous membranes dry - *Routine Neck Exam Present: supple. Absent: JVD - *Routine Respiratory Exam Present: decreased breath sounds - *Routine Cardiovascular Exam Present: RRR - *Routine Abdominal Exam Present: soft - *Routine Extremities Exam Absent: calf tenderness - *Routine Skin Exam Present: intact - *Routine Neurological Exam no focal changes but agitated and tone ok and ox2 - Routine Psychiatric Exam Present: agitated Assessment and Plan (1) SOB (shortness of breath) Status: Chronic Category: Medical Code(s): R06.02 - Shortness of breath (2) Low back pain Status: Acute Category: Medical Code(s): M54.5 - Low back pain (3) Elevated liver enzymes Status: Acute Category: Medical Code(s): R74.8 - Abnormal levels of other serum enzymes (4) Change in mental status Status: Acute Qualifiers: Altered mental status type: unspecified Qualified Code(s): R41.82 - Altered mental status, unspecified Category: Medical Code(s): R41.82 - Altered mental status, unspecified (5) Congestive heart failure (CHF) Status: Chron
--- NOTE | 2021-02-06 10:27 | PC.NURSE ---
Reported pt's abg to Dr. Mathis this am as well as Dr. Hazel. Pt has been refusing to waer bipap, keeps pulling off mask. This is the tx that Dr. Hazel reccomends at this time. Have also spoke with about pt refusing, she plans to visit later today and speak with pt. Have explained risks of not wearing bipap and elevated co2, will cont to encourage pt wear bipap.
--- NOTE | 2021-02-06 10:33 | PC.NURSE ---
This RN also reported pt's BUN of [address] Mathis this am as well. Dr. Mathis ordered a 1 L bolus of NS and then 100 ml/hr there after. Pt has attempted to void this am, but hasnt at this time. Pt is alert and oriented x 2 at this time, person and place.
[2021-02-06 12:12] LABS: POC Glucose,Bedside 86 (70-110)
[2021-02-06 17:32] LABS: MANUAL DIFFERENTIAL MANUAL DIFFERENTIAL (MANUAL DIFF)
[2021-02-06 17:39] LABS: Basophils % 0.1 % (0.1-2.0); Eosinophils % 0.2 % (0.1-12.0); Lymphocytes # 0.7 K/mm3 (0.7-4.5)
[2021-02-06 17:41] LABS: Chloride 90 mmol/L (98-107)
[2021-02-06 17:42] LABS: Hematocrit 30.8 % (42.0-52.0); Hemoglobin 9.4 g/dL (14.1-18.0); Lymphocytes % 3.5 % (10-50); Mean Corpuscular HGB Conc 30.4 g/dL (31.8-35.4); Mean Corpuscular Hemoglobin 22.4 pg (27.0-31.2); Mean Corpuscular Volume 73.6 fl (80-94); Monocytes # 0.6 K/mm3 (0.1-1.0); Monocytes % 3.4 % (1.7-9.3); Neutrophils # 17.4 K/mm3 (1.8-7.8); Neutrophils % 92.7 % (37.0-80.0); Platelet Count 294 K/mm3 (142-424); Potassium 5.1 mmoL/L (3.5-5.1); Red Blood Count 4.18 M/mm3 (4.60-6.20); Red Cell Distribution Width 16.2 % (11.5-17.5); Sodium 137 mmol/L (136-145); White Blood Count 18.8 K/mm3 (4.8-10.8)
[2021-02-06 17:44] LABS: Ammonia < 9 umol/L (9-30)
[2021-02-06 17:45] LABS: Anion Gap 22.1 mEq/L (5-15); Calcium 8.1 mg/dl (8.4-10.2); Carbon Dioxide 30 mmol/L (22.0-30.0); Creatinine Clearance Estimated 21 mL/min (50-200); Estimated Glomerular Filt Rate 16 ml/min (>60); GFR (African American) 19 ML/MIN (>60); Glucose 51 mg/dl (74-100)
[2021-02-06 17:46] LABS: Anisocytosis 1+; Hypochromasia 2+; Lymphocytes % 7 % (10-50); Microcytosis 1+; Monocytes % 6 % (2-9); Neutrophils % 85 % (42-76); Platelet Estimate Normal; Total Cells Counted 100
[2021-02-06 18:04] LABS: Blood Urea Nitrogen 132 mg/dl (9-20)
[2021-02-06 18:16] LABS: Thyroid Stimulating Hormone 0.56 uIU/mL (0.465-4.68)
[2021-02-06 18:30] LABS: POC Glucose,Bedside 70 (70-110)
--- NOTE | 2021-02-06 19:58 | PC.NURSE ---
Notified Dr. Kohli oncology admin for Dr. Mathis that pt was combative and attempting to get up of of chair, having involuntary movements and is unstable on feet and potentially unsafe, at approx 1700. Dr. Kohli ordered 0.5 ativan IV x 1, an amp of d50 x 1 r/t blood glucose 70, another liter of NS bolus over two hrs, 4 mg of haldol IV x 1 (after ativan was ineffective), a cbc,tsh, bmp, and ammonia, and to insert a benton, pt had 1350 ml u/o when benton was inserted. Family has been at bedside intermittently today and updated with status. Pt has worn bipap on and off and more than not this shift. This RN requested abg but MD stated until pt was on for hrs consistently to hold off at that time. Did make Dr. Kohli aware of BUN and creatinine elevated on evening labs. Did question if MD wanted a CT of the head,he denied at that time. Chair / bed alarm in use this shift. Dr. Mathis also aware of unequal pupils.
[2021-02-06 20:51] LABS: POC Glucose,Bedside 75 (70-110)
--- NOTE | 2021-02-06 23:25 | PC.NURSE ---
PT HAS BEEN SLEEPING AT INTERVALS IN CHAIR,AT TIMES TRYING TO GET UP,REPORTS NEEDING TO PEE,PT HAS BEEN TOLD MULTIPLE TIMES HE HAS A ZELAYA IN ,ZELAYA DRAINING BLOOD TINGED URINE R/T AT CHANGE OF SHIFT ZELAYA HAS CAUGHT IN RECLINER WHEN PT PUT FEET DOWN.PT HAS BEEN IN EYES VIEW FOR SAFETY REASONS,PT WEARING HIS BIPAP,WILL CONTINUE TO MONITOR
[2021-02-07] VITALS (18 sets, daily range): BP systolic 95–164; BP diastolic 38–82; PULSE 66–114; RESP 14–32; TEMP 36.6–37.4; O2SAT 73–100; BMI 47.2
--- NOTE | 2021-02-07 02:54 | PC.NURSE ---
received call from m/s nurse re: patient being combative and groping and hitting at staff. pt refuses to sit still in bed despite redirection attempts. patient keeps attempting to get out of bed despite sr's being up. pt is confused and yelling at this time. notified. new order noted.
[2021-02-07 03:53] LABS: POC Glucose,Bedside 58 (70-110)
--- NOTE | 2021-02-07 06:30 | PC.NURSE ---
Patient is extremely combative, swinging at nurses, techs and RT, pulling bi-pap mask off, trying to pull IV and catheter out. Patient is reaching out for things that are not there and talking to people that are not there. Received v.o. from Dr. Mathis for Ativan 1mg IV x 1 dose at 0230, patient remained combative and inappropriate gestures and touching to nurses and techs, received v.o. from Dr. Mathis for Haldol 5mg IM x 1 dose at 0335; patient continues to be combative, swinging at nurses and techs, received v.o. from Dr. Mathis for Haldol 5mg IM x 1 dose at 0430; Patient still remains uncooporative trying to get out of bed and refuses to wear Bi-pap with staff attempting to put on multiple times; patient currently on NC 3L with O2 sat in low 90's. At 0645 patient trying to get out of bed overtop the bed rails being combative with nurses. Shows no s/s of acute distress; will continue to monitor.
[2021-02-07 06:45] LABS: Basophils % 0.1 % (0.1-2.0); Hematocrit 30.9 % (42.0-52.0); Hemoglobin 9.5 g/dL (14.1-18.0); Lymphocytes # 0.8 K/mm3 (0.7-4.5); Lymphocytes % 3.4 % (10-50); Mean Corpuscular HGB Conc 30.9 g/dL (31.8-35.4); Mean Corpuscular Hemoglobin 22.6 pg (27.0-31.2); Mean Corpuscular Volume 73.2 fl (80-94); Mean Platelet Volume 8.3 fl (7.4-10.4); Monocytes # 1.4 K/mm3 (0.1-1.0); Monocytes % 6.1 % (1.7-9.3); Neutrophils # 20.3 K/mm3 (1.8-7.8); Neutrophils % 90.4 % (37.0-80.0); Platelet Count 381 K/mm3 (142-424); Red Blood Count 4.22 M/mm3 (4.60-6.20); Red Cell Distribution Width 16.2 % (11.5-17.5)
[2021-02-07 06:48] LABS: POC Glucose,Bedside 53 (70-110)
[2021-02-07 06:50] LABS: White Blood Count 22.5 K/mm3 (4.8-10.8)
[2021-02-07 06:51] LABS: MANUAL DIFFERENTIAL MANUAL DIFFERENTIAL (MANUAL DIFF)
[2021-02-07 06:57] LABS: Hypochromasia 2+; Lymphocytes % 3 % (10-50); Microcytosis 2+; Neutrophils % 86 % (42-76); Platelet Estimate Normal; Total Cells Counted 100
--- NOTE | 2021-02-07 07:15 | PC.NURSE ---
Duoneb treatment not given due to Pt very agitated and constantly attempting to climb out of bed. Pt talking in short loud bursts not making any sense. RN at bedside. Will continue to monitor.
[2021-02-07 07:50] LABS: Alanine Aminotransferase 211 U/L (12-78); Albumin Level 4.1 g/dl (3.5-5.0); Albumin/Globulin Ratio 1.3 (1.1-1.8); Alkaline Phosphatase 128 U/L (38-126); Anion Gap 16.8 mEq/L (5-15); Bilirubin,Total 0.6 mg/dl (0.2-1.3); Calcium 7.9 mg/dl (8.4-10.2); Carbon Dioxide 31 mmol/L (22.0-30.0); Chloride 93 mmol/L (98-107); Creatinine Clearance Estimated 36 mL/min (50-200); Estimated Glomerular Filt Rate 29 ml/min (>60); GFR (African American) 35 ML/MIN (>60); Globulin 3.2 g/dL (1.3-3.2); Glucose 116 mg/dl (74-100); Potassium 3.8 mmoL/L (3.5-5.1); Sodium 137 mmol/L (136-145); Total Protein,Serum 7.3 g/dl (6.3-8.2)
[2021-02-07 07:56] LABS: Aspartate Amino Transferase 739 U/L (17-59)
[2021-02-07 07:59] LABS: Blood Urea Nitrogen 120 mg/dl (9-20)
--- NOTE | 2021-02-07 09:01 | HMH.ACPN2 ---
Internal Medicine - PN: Subj *Date: 02/08/21 *Time: 06:56 Interval history: doing better in some regard - ox2 but still agitated and confused - had urinary retention - awaiting abg - may require intubation Exam Vital signs and Labs for Last 24 Hours: Temp Pulse Resp BP Pulse Ox 98.4 F 84 21 142/82 H 97 02/07/21 08:00 02/07/21 08:00 02/07/21 08:00 02/07/21 08:00 02/07/21 08:00 Laboratory Results - last 24 hr 02/06/21 09:19: POC Glucose 102 02/06/21 11:27: POC Glucose 86 02/06/21 17:25: POC Glucose 70 02/06/21 17:28: WBC 18.8 H D, RBC 4.18 L, Hgb 9.4 L, Hct 30.8 L, MCV 73.6 L, MCH 22.4 L, MCHC 30.4 L, RDW 16.2, Plt Count 294, MPV 8.0, Neut % (Auto) 92.7 H, Lymph % (Auto) 3.5 L, [place] % (Auto) 3.4, Eos % (Auto) 0.2, Baso % (Auto) 0.1, Neut # (Auto) 17.4 H, Lymph # (Auto) 0.7, [place] # (Auto) 0.6, Eos # (Auto) 0.0, Baso # (Auto) 0.0, Total Counted 100, Neutrophils % (Manual) 85 H, Band Neutrophils % 2.0, Lymphocytes % (Manual) 7 L, Monocytes % (Manual) 6, Platelet Estimate Normal, Hypochromasia 2+, Anisocytosis 1+, Microcytosis 1+ 02/06/21 17:28: TSH 0.56 02/06/21 17:28: Sodium 137, Potassium 5.1 D, Chloride 90 L, Carbon Dioxide 30, Anion Gap 22.1 H, BUN 132 H*, Creatinine 4.10 H, Estimated Creat Clear 21, Estimated GFR 16 L*, Est GFR ( Amer) 19 L*, Glucose 51 L, Calcium 8.1 L 02/06/21 17:28: Ammonia < 9 L 02/06/21 20:38: POC Glucose 75 02/07/21 03:46: POC Glucose 58 L 02/07/21 06:13: WBC 22.5 H*, RBC 4.22 L, Hgb 9.5 L, Hct 30.9 L, MCV 73.2 L, MCH 22.6 L, MCHC 30.9 L, RDW 16.2, Plt Count 381 D, MPV 8.3, Neut % (Auto) 90.4 H, Lymph % (Auto) 3.4 L, [place] % (Auto) 6.1, Eos % (Auto) 0.0 L, Baso % (Auto) 0.1, Neut # (Auto) 20.3 H, Lymph # (Auto) 0.8, [place] # (Auto) 1.4 H, Eos # (Auto) 0.0, Baso # (Auto) 0.0, Total Counted 100, Neutrophils % (Manual) 86 H, Band Neutrophils % 11.0 H, Lymphocytes % (Manual) 3 L, Platelet Estimate Normal, Hypochromasia 2+, Microcytosis 2+ 02/07/21 06:13: Sodium 137, Potassium 3.8 D, Chloride 93 L, Carbon Dioxide 31 H, Anion Gap 16.8 H, BUN 120 H*, Creatinine 2.40 H D, Estimated Creat Clear 36, Estimated GFR 29 L, Est GFR ( Amer) 35 L D, Glucose 116 H D, Calcium 7.9 L, Total Bilirubin 0.6, AST 739 H*, ALT 211 H, Alkaline Phosphatase 128 H, Total Protein 7.3, Albumin 4.1, Globulin 3.2, Albumin/Globulin Ratio 1.3 02/07/21 06:28: POC Glucose 53 L I & O for Last 24 hours: Intake & Output 02/04/21 02/05/21 02/06/21 02/07/21 11:59 11:59 11:59 11:59 Intake Total 480 / 480 870 / 870 240 / 240 960 / 960 Output Total 1000 / 1000 425 / 425 4200 / 4200 Balance -520 / -520 870 / 870 -185 / -185 -3240 / -3240 Weight 318 lb 2 oz 317 lb 7.45 oz 317 lb 7.45 oz 311 lb 9 oz - Constitutional no acute distress, obese - *Routine HEENT Exam Head: Present: normocephalic Eye: Present: EOMI, PERRL ENT: Present: mucous membranes dry - *Routine Neck Exam Present: supple - *Routine Respiratory Exam Present: decreased breath sounds - *Routine Cardiovascular Exam Present: RRR, murmur - *Routine Abdominal Exam Present: soft - *Routine Extremities Exam Absent: calf tenderness - *Routine Skin Exam Present: intact - *Routine Neurological Exam Present: alert, CN II-XII intact - Routine Psychiatric Exam Present: unable to assess Assessment and Plan (1) SOB (shortness of breath) Status: Chronic Category: Medical Code(s): R06.02 - Shortness of breath (2) Low back pain Status: Acute Category: Medical Code(s): M54.5 - Low back pain (3) Elevated liver enzymes Status: Acute Category: Medical Code(s): R74.8 - Abnormal levels of other serum enzymes (4) Change in mental status Status: Acute Qualifiers: Altered mental status type: unspecified Qualified Code(s): R41.82 - Altered mental status, unspecified Category: Medical Code(s): R41.82 - Altered mental status, unspecified (5) Congestive heart failure (CHF) Status: Chronic Qualifiers: Hear
[2021-02-07 10:48] LABS: ABG Base Excess 5.1 mmol/L (-2.4-2.3); ABG HCO3 29.9 mmhg (22.0-26.0); ABG Oxygen Saturation 96 % (90-100); ABG PCO2 49.3 mmhg (35.0-45.0); ABG PO2 84.4 mmhg (80-100); ABG TCO2 31.4 mmhg (23-27)
[2021-02-07 10:50] LABS: Allen's Test Patient Unable; Oxygen 4 %
[2021-02-07 10:51] LABS: Source Left Radial
--- NOTE | 2021-02-07 12:14 | PC.NURSE ---
Unable to give Pt breathing treatment due to being combative and unreasonable and severely confused.
[2021-02-07 12:55] LABS: POC Glucose,Bedside 108 (70-110)
[2021-02-07 12:55] LABS: POC Glucose,Bedside 52 (70-110)
[2021-02-07 12:55] LABS: POC Glucose,Bedside 71 (70-110)
--- NOTE | 2021-02-07 14:35 | PC.NURSE ---
This RN took over care @ 1435 when pt was intubated and transferred to ICU room 218. Diann San RIVET TOSSER @ BS and intubated pt @ 1435. #8 ET tube inserted and is 24 @ the right lip. VSS throughout intubation. Vent settings: 50% FiO2, AC, 14, 450, 5/-. Barnes bag changed to urometer. @ BS after intubation and POC explained. Propofol gtt @ 40mcg/kg/min (33.8mL/hr) initiated per Dr. Kohli. D5NS @ 200mL/hr infusing via PIV secondary to continuous hypoglycemia.
--- NOTE | 2021-02-07 15:20 | XR_ITS ---
PROCEDURE INFORMATION: Exam: XR Chest Exam date and time: 02/07/2021 3:20 PM Age: 50 years old Clinical indication: Device placement; Ett placement (vent status); Additional info: Intubation TECHNIQUE: Imaging protocol: XR of the chest. Views: 1 view. COMPARISON: CR XR CHEST PORTABLE 02/05/2021 8:43 AM FINDINGS: Tubes, catheters and devices: Endotracheal tube terminates 3 cm above the contreras Lungs: Patchy bilateral opacities may represent multifocal pneumonia . Pleural spaces: Unremarkable. No pleural effusion. No pneumothorax. Heart/Mediastinum: Unremarkable. No cardiomegaly. Bones/joints: Unremarkable. IMPRESSION: Patchy bilateral opacities may represent multifocal pneumonia .
[2021-02-07 15:55] LABS: ABG Base Excess 6.7 mmol/L (-2.4-2.3); ABG HCO3 31.9 mmhg (22.0-26.0); ABG Oxygen Saturation 95 % (90-100); ABG PH 7.37 mmol/L (7.35-7.45); ABG TCO2 33.7 mmhg (23-27)
--- NOTE | 2021-02-07 15:55 | PC.NURSE ---
Dr. Kohli notified of ABG results: pCO2 56.4 and pO2 76. No new orders received.
[2021-02-07 15:56] LABS: Allen's Test Patient Unable; Oxygen 50 %; PEEP 5; Source Left Radial; Tidal Volume 450; Vent Rate 14
[2021-02-07 15:58] LABS: ABG PCO2 56.4 mmhg (35.0-45.0)
--- NOTE | 2021-02-07 17:14 | PC.NURSE ---
Daughter @ and explains that pt overdosed on street drugs (she thinks Fentanyl) 2yrs ago and was intubated @ for aprox 2 wks. She reports that he does not drink alcohol.
--- NOTE | 2021-02-07 18:20 | PC.NURSE ---
Addendum entered by Yaz Madera RN 02/07/21 18:21: Dr. Hazel also wants SBT in the AM. RT (Will) updated. Original Note: received call from Dr. Hazel with new orders: decrease TV to 440 and increase rate to 18. Notified RT (Will).
[2021-02-07 18:37] LABS: POC Glucose,Bedside 113 (70-110)
[2021-02-07 18:37] LABS: POC Glucose,Bedside 133 (70-110)
[2021-02-07 18:37] LABS: POC Glucose,Bedside 96 (70-110)
--- NOTE | 2021-02-07 19:43 | PC.NURSE ---
orders received at 1215, see provider notification charting, orders carried out, PRINCESS Harris received orders at 1300 for 2mg ativan IV, 4 point restraints also ordered at this time and were applied per policy at 1330. At this time PRINCESS Harris also received order for propofol drip and intubation from Dr. Kohli. Also vent settings were received at this time and relayed to Dea BAL. report given to PRINCESS Guardado
--- NOTE | 2021-02-07 19:49 | PC.NURSE ---
Addendum entered by Fifi John RN 02/07/21 19:57: 1/2 amp given at 0728 Original Note: Blood sugars as follows: 0728 25 1 amp given per protocol of D50 0748 108 1150 52 1 amp D50 given per protocol 8128 736 6884 81 1240 63 1300 76 1320 95
--- NOTE | 2021-02-07 20:01 | PC.NURSE ---
Amp of D 50 given at 1500 IV per protocol r/t blood sugar of 47.
--- NOTE | 2021-02-07 20:03 | PC.NURSE ---
As stated in Andrea John's note, This RN received orders for x 1 dose of IV ativan 2 mg, restraints per policy- 4 point, vent settings and an abg 2 hrs post intubation per Dr. Kohli, RT said thier protocol was 1 hr post sedation.
[2021-02-07 20:10] LABS: POC Glucose,Bedside 95 (70-110)
[2021-02-07 20:10] LABS: POC Glucose,Bedside 129 (70-110)
[2021-02-07 20:10] LABS: POC Glucose,Bedside 81 (70-110)
[2021-02-07 20:10] LABS: POC Glucose,Bedside 76 (70-110)
[2021-02-07 20:10] LABS: POC Glucose,Bedside 63 (70-110)
[2021-02-07 22:25] LABS: POC Glucose,Bedside 184 (70-110)
[2021-02-08] VITALS (34 sets, daily range): BP systolic 100–147; BP diastolic 42–92; PULSE 59–100; RESP 9–25; TEMP 35.8–36.9; O2SAT 94–100; BMI 47.2
--- NOTE | 2021-02-08 02:52 | PC.WOUNDNOTE ---
He is intubated and sedated. SBT planned for later this morning. HOB elevated 30 degrees. He received a complete bed bath and linen change. He is being turned and repositioned q 2 hours. Oral care provided q 2 hours. F/c patent with yellow, clear urine. Glucose 184 at bedtime. Vent settings are as follows: AC mode, TV 440, PEEP 5, Rate 18, FiO2 50%.
[2021-02-08 05:23] LABS: Basophils % 0.1 % (0.1-2.0); Eosinophils % 0.1 % (0.1-12.0); Hematocrit 30.2 % (42.0-52.0); Lymphocytes # 0.7 K/mm3 (0.7-4.5); Lymphocytes % 5.4 % (10-50); Mean Corpuscular HGB Conc 29.8 g/dL (31.8-35.4); Mean Corpuscular Hemoglobin 22.5 pg (27.0-31.2); Mean Corpuscular Volume 75.4 fl (80-94); Mean Platelet Volume 7.9 fl (7.4-10.4); Monocytes # 0.6 K/mm3 (0.1-1.0); Monocytes % 4.3 % (1.7-9.3); Neutrophils # 11.4 K/mm3 (1.8-7.8); Neutrophils % 90.1 % (37.0-80.0); Platelet Count 308 K/mm3 (142-424); Red Cell Distribution Width 16.1 % (11.5-17.5); White Blood Count 12.7 K/mm3 (4.8-10.8)
[2021-02-08 05:29] LABS: MANUAL DIFFERENTIAL MANUAL DIFFERENTIAL (MANUAL DIFF)
[2021-02-08 05:40] LABS: Anion Gap 11.3 mEq/L (5-15); Calcium 7.5 mg/dl (8.4-10.2); Carbon Dioxide 30 mmol/L (22.0-30.0); Chloride 99 mmol/L (98-107); Creatinine Clearance Estimated 62 mL/min (50-200); Estimated Glomerular Filt Rate 54 ml/min (>60); GFR (African American) 65 ML/MIN (>60); Potassium 4.3 mmoL/L (3.5-5.1); Sodium 136 mmol/L (136-145)
[2021-02-08 05:41] LABS: POC Glucose,Bedside 347 (70-110)
--- NOTE | 2021-02-08 05:45 | PC.NURSE ---
Pt placed on Spontaneous Breathing Trial per Dr. Hazel. Pt stable and tolerating well at this time, no respiratory distress noted. Will continue to monitor.
[2021-02-08 05:50] LABS: Blood Urea Nitrogen 96 mg/dl (9-20); Glucose 319 mg/dl (74-100)
--- NOTE | 2021-02-08 06:00 | XR_ITS ---
PROCEDURE INFORMATION: Exam: XR Chest Exam date and time: 02/08/2021 6:00 AM Age: 50 years old Clinical indication: Device placement; Ett placement (vent status); Patient HX: Intubated patient TECHNIQUE: Imaging protocol: XR of the chest. Views: 1 view. COMPARISON: CR XR CHEST PORTABLE 02/07/2021 3:26 PM FINDINGS: Tubes, catheters and devices: The ET tube is 5 cm from the contreras. The nasogastric tube is in good position. Lungs: The lung volumes are low. Some patchy bilateral lung base airspace disease is unchanged. Pleural spaces: Unremarkable. No pleural effusion. No pneumothorax. Heart/Mediastinum: Unremarkable. No cardiomegaly. Bones/joints: Unremarkable. IMPRESSION: Stable patchy bibasilar airspace disease.
[2021-02-08 06:01] LABS: Hypochromasia 2+; Lymphocytes % 8 % (10-50); Microcytosis 1+; Monocytes % 1 % (2-9); Neutrophils % 86 % (42-76); Platelet Estimate Normal; Rouleaux 1+; Total Cells Counted 100
[2021-02-08 07:19] LABS: ABG Base Excess 2.5 mmol/L (-2.4-2.3); ABG HCO3 27.7 mmhg (22.0-26.0); ABG Oxygen Saturation 97 % (90-100); ABG PCO2 48.1 mmhg (35.0-45.0); ABG PH 7.38 mmol/L (7.35-7.45); ABG PO2 90.9 mmhg (80-100); ABG TCO2 29.2 mmhg (23-27)
[2021-02-08 07:29] LABS: Allen's Test Patient Unable; Oxygen 50 %; PEEP 5; Pressure Support 5; Source Left Radial
--- NOTE | 2021-02-08 08:43 | PC.NURSE ---
upon assessment of patient he was thrashing in bed, agitated, kicking at staff, unable to follow commands. multiple assist to keep patient safe. has been off sedation on spontaneous breathing trial. noted patient to be at risk of pulling out et tube, and hurting self from his confusion and agitation. spoke with myra, who stated to turn sedation back on. dose of versed given and propofol started back. slowly weaning propofol back down, currently at 45mcg/kg/min
--- NOTE | 2021-02-08 11:21 | HMH.ACPN2 ---
Internal Medicine - PN: Subj *Date: 02/08/21 *Time: 09:00 Interval history: pt laying in bed sedated in no distress. vss, on vent, [place]on draining at bedside Exam Vital signs and Labs for Last 24 Hours: Temp Pulse Resp BP Pulse Ox 96.5 F L 80 21 116/63 94 L 02/08/21 06:43 02/08/21 06:43 02/08/21 08:00 02/08/21 05:00 02/08/21 08:00 Laboratory Results - last 24 hr 02/07/21 07:48: POC Glucose 108 02/07/21 08:25: POC Glucose 71 02/07/21 11:44: POC Glucose 52 L 02/07/21 12:04: POC Glucose 129 H 02/07/21 12:24: POC Glucose 81 02/07/21 12:40: POC Glucose 63 L 02/07/21 13:00: POC Glucose 76 02/07/21 13:20: POC Glucose 95 02/07/21 15:52: Specimen Source Left radial, O2 % 50, ABG pH 7.37, ABG pCO2 56.4 H, ABG pO2 76.0 L, ABG HCO3 31.9 H, ABG Total CO2 33.7 H, ABG O2 Saturation 95, ABG Base Excess 6.7 H, Mj Test Patient unable, Vent Rate 14, Tidal Volume 450, PEEP 5 02/07/21 16:18: POC Glucose 96 02/07/21 17:00: POC Glucose 113 H 02/07/21 18:30: POC Glucose 133 H 02/07/21 21:18: POC Glucose 184 H 02/08/21 04:43: POC Glucose 347 H* 02/08/21 04:45: WBC 12.7 H D, RBC 4.00 L, Hgb 9.0 L, Hct 30.2 L, MCV 75.4 L, MCH 22.5 L, MCHC 29.8 L, RDW 16.1, Plt Count 308, MPV 7.9, Neut % (Auto) 90.1 H, Lymph % (Auto) 5.4 L, [place] % (Auto) 4.3, Eos % (Auto) 0.1, Baso % (Auto) 0.1, Neut # (Auto) 11.4 H, Lymph # (Auto) 0.7, [place] # (Auto) 0.6, Eos # (Auto) 0.0, Baso # (Auto) 0.0, Total Counted 100, Neutrophils % (Manual) 86 H, Band Neutrophils % 5.0, Lymphocytes % (Manual) 8 L, Monocytes % (Manual) 1 L, Platelet Estimate Normal, Hypochromasia 2+, Microcytosis 1+, Rouleaux 1+ 02/08/21 04:45: Sodium 136, Potassium 4.3, Chloride 99, Carbon Dioxide 30, Anion Gap 11.3, BUN 96 H, Creatinine 1.40 H D, Estimated Creat Clear 62, Estimated GFR 54 L, Est GFR ( Amer) 65 D, Glucose 319 H D, Calcium 7.5 L 02/08/21 07:00: Specimen Source Left radial, O2 % 50, ABG pH 7.38, ABG pCO2 48.1 H, ABG pO2 90.9, ABG HCO3 27.7 H, ABG Total CO2 29.2 H, ABG O2 Saturation 97, ABG Base Excess 2.5 H, Mj Test Patient unable, PEEP 5 I & O for Last 24 hours: Intake & Output 02/05/21 02/06/21 02/07/21 02/08/21 11:59 11:59 11:59 11:59 Intake Total 870 / 870 240 / 240 960 / 960 3433 / 3433 Output Total 425 / 425 4750 / 4750 3805 / 3805 Balance 870 / 870 -185 / -185 -3790 / -3790 -372 / -372 Weight 317 lb 7.45 oz 317 lb 7.45 oz 311 lb 9 oz 311 lb 8 oz Microbiology Reports for the Last 24 Hours: Microbiology 02/07/21 14:45 Sputum - Endotracheal Tube Aspirate Gram Stain - Final - Constitutional no acute distress, morbidly obese - *Routine HEENT Exam Head: Present: normocephalic Eye: Present: PERRL ENT: Present: mucous membranes moist - *Routine Neck Exam Present: supple. Absent: lymphadenopathy - *Routine Respiratory Exam Present: patient mechanically ventilated, CTA bilaterally - *Routine Cardiovascular Exam Present: RRR - *Routine Abdominal Exam Present: soft, normoactive bowel sounds. Absent: tenderness - *Routine Extremities Exam Present: normal capillary refill. Absent: cyanosis, clubbing, edema - *Routine Skin Exam Present: warm. Absent: rash - *Routine Neurological Exam sedated - Routine Psychiatric Exam Present: unable to assess Assessment and Plan (1) SOB (shortness of breath) Status: Chronic Category: Medical Code(s): R06.02 - Shortness of breath (2) Low back pain Status: Acute Category: Medical Code(s): M54.5 - Low back pain (3) Elevated liver enzymes Status: Acute Category: Medical Code(s): R74.8 - Abnormal levels of other serum enzymes (4) Change in mental status Status: Acute Qualifiers: Altered mental status type: unspecified Qualified Code(s): R41.82 - Altered mental status, unspecified Category: Medical Code(s): R41.82 - Altered mental status, unspecified (5) Congestive heart failure (CHF) Status: Chronic Qualifiers: Heart failure type: diastolic
--- NOTE | 2021-02-08 11:45 | HMH.PULMPN ---
Internal Medicine - PN: Subj *Date: 02/08/21 *Time: 11:45 Interval history: Acute on chronic hypoxic hypercarbic respiratory failure Exam - Constitutional Comment:: Intubated and sedated. Appears comfortable. - HENMT Exam HENMT: Present: normocephalic, atraumatic - Eye Exam Eyes:: Present: normal appearance both eyes and related structures - Neck Exam Neck:: Present: normal visual inspection - Respiratory Exam Respiratory:: Present: lungs clear - Cardiovascular Exam Cardiac:: Present: S1, S2 - GI Exam GI:: Present: soft, obese - Skin Exam Skin: Present: warm, rash - Neurological Exam Intubated and sedated - Extremities Exam Extremities: Present: no cyanosis, no clubbing, edema Assessment and Plan (1) SOB (shortness of breath) Status: Chronic Category: Medical Code(s): R06.02 - Shortness of breath (2) Low back pain Status: Acute Category: Medical Code(s): M54.5 - Low back pain (3) Elevated liver enzymes Status: Acute Category: Medical Code(s): R74.8 - Abnormal levels of other serum enzymes (4) Change in mental status Status: Acute Qualifiers: Altered mental status type: unspecified Qualified Code(s): R41.82 - Altered mental status, unspecified Category: Medical Code(s): R41.82 - Altered mental status, unspecified (5) Congestive heart failure (CHF) Status: Chronic Qualifiers: Heart failure type: diastolic Heart failure chronicity: acute on chronic Qualified Code(s): I50.33 - Acute on chronic diastolic (congestive) heart failure Category: Medical Code(s): I50.9 - Heart failure, unspecified (6) Diabetes mellitus Status: Chronic Qualifiers: Diabetes mellitus type: type 2 Diabetes mellitus [employer] insulin use: with chcf use Diabetes mellitus complication status: without complication Qualified Code(s): E11.9 - Type 2 diabetes mellitus without complications; Z79.4 - alf (current) use of insulin Category: Medical Code(s): E11.9 - Type 2 diabetes mellitus without complications (7) HTN (hypertension) Status: Chronic Qualifiers: Hypertension type: primary hypertension Qualified Code(s): I10 - Essential (primary) hypertension Category: Medical Code(s): I10 - Essential (primary) hypertension (8) Hyperlipidemia Status: Chronic Qualifiers: Hyperlipidemia type: mixed hyperlipidemia Qualified Code(s): E78.2 - Mixed hyperlipidemia Category: Medical Code(s): E78.5 - Hyperlipidemia, unspecified (9) Orthopnea Status: Acute Category: Medical Code(s): R06.01 - Orthopnea (10) CAD (coronary artery disease) Status: Suspected Qualifiers: Coronary Disease-Associated Artery/Lesion type: [place] artery [place] vs. transplanted heart: [place] heart Associated angina: without angina Qualified Code(s): I25.10 - Atherosclerotic heart disease of [place] coronary artery without angina pectoris Category: Medical Code(s): I25.10 - Atherosclerotic heart disease of [place] coronary artery without angina pectoris (11) Fatty liver Status: Acute Category: Medical Code(s): K76.0 - Fatty (change of) liver, not elsewhere classified (12) Hyperglycemia due to diabetes mellitus Status: Chronic Category: Medical Code(s): E11.65 - Type 2 diabetes mellitus with hyperglycemia (13) Hypercapnia Status: Acute Category: Medical Code(s): R06.89 - Other abnormalities of breathing (14) COPD (chronic obstructive pulmonary disease) Status: Acute Category: Medical Code(s): J44.9 - Chronic obstructive pulmonary disease, unspecified (15) Smoker Status: Chronic Category: Social Hx Code(s): F17.200 - Nicotine dependence, unspecified, uncomplicated (16) Diabetic retinopathy Status: Chronic Category: Medical Code(s): E11.319 - Type 2 diabetes mellitus with unspecified diabetic retinopathy without macular edema (17) Respiratory failure Status: Acute Qualif
[2021-02-08 12:09] LABS: POC Glucose,Bedside 278 (70-110)
--- NOTE | 2021-02-08 13:20 | DIET.NUTRFU ---
Addendum entered by Kenia Zurita 02/15/21 10:52: Pt given low sodium/ADA diet yesterday, tolerating 25-50%. He passed speech eval without issue, but does require assistance eating dt continued but much improved AMS. Na normalized, BG moderate-high- avg. 260, no weight record since 02/13, normal bowel function though watery/loose. Addendum entered by Kenia Zurita 02/12/21 10:37: Day 5 NPO, Na high but improving-154 today, K high, renal function slightly worsened. BG erratic- hypo->300. Weight up 8#, though may be inaccurate dt pt's constant movement. Started on NS yesterday. Propofol weaned. Behavioral health consult and change in meds to hopefully improve continued severe AMS. With pt's current state, enteral nutrition contraindicated dt high risk aspiration..recommend D5, possible TPN, if pt continues without improvement next 24h. Hopefully will have improvement mentation and advancement diet, will add supplements as indicated. Addendum entered by Kenia Zurita 02/10/21 14:01: Pt extubated this am, remains NPO dt severe confusion/agitation. Weight stable, 1+ edema, renal function stable. BG>300 despite 3d NPO, he is receiving significant Propofol providing kcal. He was receiving D5 fluids but this has been dc'd, recommend restarting if pt unable to have oral intake next 24h. Original Note: Pt intubated and sedated, unable to successfully complete SBT this am. Prior PO intakes were 0-25% rt severe lethargy and confusion. Weight down 6# since admission. BG are erratic- wnl->300, avg. 200 past 24h. Renal function remains poor but has improved- Creatinine 1.4 today. Last BM 02/05. He is receiving D5/NaCl IVF at 200ml/h and Propofol currently at 33.917 mls/h providing significant energy around 900kcal. Recommend continuing this regimen until pt able to extubate. If pt is unable to be extubated in next 48h, recommend initiating enteral nutrition per following recommendations. If ordered by MD, recommend initiating continuous enteral nutrition regimen of Pulmocare 1.5 at 20ml/h and increasing by 10ml/h q 8h as tolerated to goal rate of 47ml/h. This regimen would provide 1692kcal, 71g protein, 119g cho, 105g fat, 885ml free water. If this regimen is initiated, would recommend dc of D5 IVF and initiation water flushes of 185ml q 4h to meet additional fluid needs not provided by formula. Will add additional protein pending pt tolerance and renal function. Will monitor pt closely to make further recommendations as indicated.
[2021-02-08 17:39] LABS: POC Glucose,Bedside 307 (70-110)
[2021-02-08 17:39] LABS: POC Glucose,Bedside 216 (70-110)
--- NOTE | 2021-02-08 20:29 | PC.NURSE ---
patient has been attempted to be weaned down on sedation with little success. patient becomes very agitated and fights the vent very quickly. at end of shift propofol at 65mcg/kg/min. fentanyl was increased up to 50mcg.hr. patient did well on spontaneous breathing trial, but was noticed to start having a low respiratory rate. once flipped back over to ac mode this ended up causing patient some distress as the vent was breathing for him. took some time to calm patient back down. held dextrose at this time because of elevated blood sugars. verified with md that they wanted to stop the gabapentin. dr renteria wants patient started on a sbt in morning but would like it later in the morning around 7. family has visited patient and updates have been given. when off sedation no purposeful movements, or following of commands noted. myra also stated to try and keep patient o2 at 95%, not higher. vitals have been stable. lower at beginning of shift so bp meds were held.
[2021-02-08 21:13] LABS: POC Glucose,Bedside 234 (70-110)
[2021-02-09] VITALS (35 sets, daily range): BP systolic 117–146; BP diastolic 61–98; PULSE 50–85; RESP 18–22; TEMP 36.2–37.1; O2SAT 90–99; BMI 46.2
--- NOTE | 2021-02-09 03:19 | PC.NURSE ---
He continues to be intubated and sedated. HOB elevated to 30 degrees. He is being turned and repositioned q 2 hours. NSR on telemetry.
[2021-02-09 05:26] LABS: POC Glucose,Bedside 293 (70-110)
[2021-02-09 06:51] LABS: Chloride 103 mmol/L (98-107); Potassium 4.3 mmoL/L (3.5-5.1); Sodium 143 mmol/L (136-145)
[2021-02-09 06:52] LABS: Hematocrit 33.4 % (42.0-52.0); Lymphocytes # 0.6 K/mm3 (0.7-4.5); Lymphocytes % 4.4 % (10-50); Mean Corpuscular HGB Conc 29.9 g/dL (31.8-35.4); Mean Corpuscular Hemoglobin 22.9 pg (27.0-31.2); Mean Corpuscular Volume 76.4 fl (80-94); Mean Platelet Volume 7.9 fl (7.4-10.4); Monocytes # 0.5 K/mm3 (0.1-1.0); Neutrophils # 12.3 K/mm3 (1.8-7.8); Neutrophils % 91.6 % (37.0-80.0); Platelet Count 353 K/mm3 (142-424); Red Blood Count 4.37 M/mm3 (4.60-6.20); Red Cell Distribution Width 16.1 % (11.5-17.5); White Blood Count 13.5 K/mm3 (4.8-10.8)
[2021-02-09 06:54] LABS: Blood Urea Nitrogen 64 mg/dl (9-20); Creatinine Clearance Estimated 72 mL/min (50-200); Estimated Glomerular Filt Rate 64 ml/min (>60); GFR (African American) 78 ML/MIN (>60); MANUAL DIFFERENTIAL MANUAL DIFFERENTIAL (MANUAL DIFF)
[2021-02-09 06:55] LABS: Anion Gap 12.3 mEq/L (5-15); Carbon Dioxide 32 mmol/L (22.0-30.0); Glucose 308 mg/dl (74-100)
[2021-02-09 07:02] LABS: Calcium 8.5 mg/dl (8.4-10.2)
--- NOTE | 2021-02-09 07:53 | PC.NURSE ---
10 mg Haldol IV given per telephone order from Dr.. Hazel @ this time.
--- NOTE | 2021-02-09 07:57 | PC.NURSE ---
Pt breathing 6/min, placed back on AC mode @ 0757 by RT Nevaeh. Sedation turned back on @ this time as well.
[2021-02-09 08:27] LABS: Lymphocytes % 3 % (10-50); Microcytosis 1+; Monocytes % 3 % (2-9); Neutrophils % 94 % (42-76); Platelet Estimate Normal; Total Cells Counted 100
[2021-02-09 08:28] LABS: Anisocytosis 1+; Hypochromasia 3+
--- NOTE | 2021-02-09 09:15 | HMH.ACPN2 ---
Internal Medicine - PN: Subj *Date: 02/09/21 *Time: 16:46 Interval history: 50-year-old male patient remains intubated and sedated, no respiratory distress noted. Ventilator settings are 18/440/50 +5. Daughter at bedside. Nursing reports patient becoming very anxious when sedation is decreased we have been unable to decrease sedation enough to attempt SBT. Pulmonology is following, and cardiology has been consulted Exam Vital signs and Labs for Last 24 Hours: Temp Pulse Resp BP Pulse Ox 98.5 F 60 18 117/62 96 02/09/21 06:49 02/09/21 06:49 02/09/21 06:49 02/09/21 06:49 02/09/21 06:49 Laboratory Results - last 24 hr 02/08/21 09:05: POC Glucose 307 H* 02/08/21 12:01: POC Glucose 278 H 02/08/21 17:21: POC Glucose 216 H 02/08/21 20:11: POC Glucose 234 H 02/09/21 04:56: POC Glucose 293 H 02/09/21 06:19: WBC 13.5 H, RBC 4.37 L, Hgb 10.0 L, Hct 33.4 L, MCV 76.4 L, MCH 22.9 L, MCHC 29.9 L, RDW 16.1, Plt Count 353, MPV 7.9, Neut % (Auto) 91.6 H, Lymph % (Auto) 4.4 L, [place] % (Auto) 4.0, Eos % (Auto) 0.0 L, Baso % (Auto) 0.0 L, Neut # (Auto) 12.3 H, Lymph # (Auto) 0.6 L, [place] # (Auto) 0.5, Eos # (Auto) 0.0, Baso # (Auto) 0.0, Total Counted 100, Neutrophils % (Manual) 94 H, Lymphocytes % (Manual) 3 L, Monocytes % (Manual) 3, Platelet Estimate Normal, Hypochromasia 3+, Anisocytosis 1+, Microcytosis 1+ 02/09/21 06:19: Sodium 143, Potassium 4.3, Chloride 103, Carbon Dioxide 32 H, Anion Gap 12.3, BUN 64 H D, Creatinine 1.20, Estimated Creat Clear 72, Estimated GFR 64, Est GFR ( Amer) 78, Glucose 308 H, Calcium 8.5 D I & O for Last 24 hours: Intake & Output 02/06/21 02/07/21 02/08/21 02/09/21 23:59 23:59 23:59 23:59 Intake Total 0 / 480 2893 / 3143 2610.708 / 2680.708 560 / 560 Output Total 1500 / 2500 5690 / 5840 4235 / 4585 1525 / 1525 Balance -1500 / -2020 -2797 / -2697 -1624.292 / -1904.292 -965 / -965 Weight 317 lb 7.45 oz 311 lb 9 oz 311 lb 8 oz 305 lb 1 oz Microbiology Reports for the Last 24 Hours: Microbiology 02/07/21 14:45 Sputum - Endotracheal Tube Aspirate Gram Stain - Final 02/07/21 14:45 Sputum - Endotracheal Tube Aspirate Sputum Culture - Preliminary 02/03/21 17:30 Blood Blood Culture - Final NO GROWTH AFTER 5 DAYS 02/03/21 18:00 Blood Blood Culture - Final NO GROWTH AFTER 5 DAYS - Constitutional no acute distress, obese - *Routine HEENT Exam Head: Present: normocephalic Eye: Present: EOMI ENT: Present: mucous membranes moist - *Routine Neck Exam Present: trachea midline. Absent: tracheal deviation - *Routine Respiratory Exam Present: patient mechanically ventilated, CTA bilaterally - *Routine Cardiovascular Exam Present: RRR - *Routine Abdominal Exam Present: soft, normoactive bowel sounds. Absent: tenderness - *Routine Extremities Exam Present: pulses intact. Absent: cyanosis, clubbing, edema - *Routine Skin Exam Present: intact, dry, warm. Absent: cyanosis, erythema - *Routine Neurological Exam Present: altered mental status Sedated - Routine Psychiatric Exam Present: unable to assess Assessment and Plan (1) SOB (shortness of breath) Status: Chronic Category: Medical Code(s): R06.02 - Shortness of breath (2) Low back pain Status: Acute Category: Medical Code(s): M54.5 - Low back pain (3) Elevated liver enzymes Status: Acute Category: Medical Code(s): R74.8 - Abnormal levels of other serum enzymes (4) Change in mental status Status: Acute Qualifiers: Altered mental status type: unspecified Qualified Code(s): R41.82 - Altered mental status, unspecified Category: Medical Code(s): R41.82 - Altered mental status, unspecified (5) Congestive heart failure (CHF) Status: Chronic Qualifiers: Heart failure type: diastolic Heart failure chronicity: acute on chronic Qualified Code(s): I50.33 - Acute on chronic diastolic (congestive) hear
--- NOTE | 2021-02-09 09:34 | HMH.PNCARD ---
Subjective Date: 02/09/21 Time: 09:00 Principal diagnosis: diastolic chf Interval history: This is a 50-year-old gentleman who was admitted to the hospital with complaints of back pain radiating into his right hip on 02/03/21.The patient also has acute on chronic diastolic congestive heart failure. Patient is currently intubated at this time. This is being managed by pulmonology and PCP. Patient continues to receive pain medication on scheduled and is currently on profol drip. is at bedside. states patient is doing much better. Patient was noted to have elevated creatinine upon admission to hospital. Patient did receive Lasix IV which has improved his function. Creatinine this morning was noted to be at 1.20, which this seems to be normal for patient. Patient does have swelling of the lower extremities. states this is not new for him. Lung sounds are clear. merchandise director reveals sinus rhythm with a heart rate of 67 bpm. Blood pressure is stable. Patient does have severe YESSENIA. When previous attempts to extubate patient, patient will becomes combative per RN. Discussed plan of care with Dr. Warren. Orders were received from Dr. Warren. Continue to monitor patient status. No further cardiac testing is noted at this time. We will recommend cardio mems due to chronic diastolic congestive heart failure, at a future follow-up in the cardiology clinic. Uncertain if patient will be compliant and a good candidate for CardioMEMS. Pain management continued to be managed by PCP. Please notify cardiology of any changes in patient status. Thank you for allowing cardiology to participate in the care of this patient. Exam Vital signs and Labs for Last 24 Hours: Temp Pulse Resp BP Pulse Ox 98.5 F 60 18 117/62 96 02/09/21 06:49 02/09/21 06:49 02/09/21 06:49 02/09/21 06:49 02/09/21 06:49 Laboratory Results - last 24 hr 02/08/21 09:05: POC Glucose 307 H* 02/08/21 12:01: POC Glucose 278 H 02/08/21 17:21: POC Glucose 216 H 02/08/21 20:11: POC Glucose 234 H 02/09/21 04:56: POC Glucose 293 H 02/09/21 06:19: WBC 13.5 H, RBC 4.37 L, Hgb 10.0 L, Hct 33.4 L, MCV 76.4 L, MCH 22.9 L, MCHC 29.9 L, RDW 16.1, Plt Count 353, MPV 7.9, Neut % (Auto) 91.6 H, Lymph % (Auto) 4.4 L, [place] % (Auto) 4.0, Eos % (Auto) 0.0 L, Baso % (Auto) 0.0 L, Neut # (Auto) 12.3 H, Lymph # (Auto) 0.6 L, [place] # (Auto) 0.5, Eos # (Auto) 0.0, Baso # (Auto) 0.0, Total Counted 100, Neutrophils % (Manual) 94 H, Lymphocytes % (Manual) 3 L, Monocytes % (Manual) 3, Platelet Estimate Normal, Hypochromasia 3+, Anisocytosis 1+, Microcytosis 1+ 02/09/21 06:19: Sodium 143, Potassium 4.3, Chloride 103, Carbon Dioxide 32 H, Anion Gap 12.3, BUN 64 H D, Creatinine 1.20, Estimated Creat Clear 72, Estimated GFR 64, Est GFR ( Amer) 78, Glucose 308 H, Calcium 8.5 D I & O for Last 24 hours: Intake & Output 02/06/21 02/07/21 02/08/21 02/09/21 23:59 23:59 23:59 23:59 Intake Total 0 / 480 2893 / 3143 2610.708 / 2680.708 586.292 / 586.292 Output Total 1500 / 2500 5690 / 5840 4235 / 4585 1525 / 1525 Balance -1500 / -2020 -2797 / -2697 -1624.292 / -1904.292 -938.708 / -938.708 Weight 317 lb 7.45 oz 311 lb 9 oz 311 lb 8 oz 305 lb 1 oz Microbiology Reports for the Last 24 Hours: Microbiology 02/07/21 14:45 Sputum - Endotracheal Tube Aspirate Gram Stain - Final 02/07/21 14:45 Sputum - Endotracheal Tube Aspirate Sputum Culture - Preliminary 02/03/21 17:30 Blood Blood Culture - Final NO GROWTH AFTER 5 DAYS 02/03/21 18:00 Blood Blood Culture - Final NO GROWTH AFTER 5 DAYS - Constitutional morbidly obese, obtunded - *Routine HEENT Exam Head: Present: normocephalic ENT: Present: mucous membranes moist - *Routine Neck Exam Present: supple, normal carotid upstroke. Absent: JVD, carotid bruit, lymphadenopathy Comments: Patient is intubated at this time - *Routine Respiratory
--- NOTE | 2021-02-09 09:50 | PC.NURSE ---
At daughters request fentanyl gtt stopped, Dr Hazel @ bedside at this and gave verbal order for Fentanyl to be DC'd.
[2021-02-09 11:33] LABS: POC Glucose,Bedside 313 (70-110)
--- NOTE | 2021-02-09 11:55 | PC.NURSE ---
Addendum entered by Ingrid Guillen RN 02/09/21 12:11: SBT stopped @ 1210, resp rate 6/min. Pt placed back on AC @ this time by RT Original Note: SBT started @ 1150, 5 staff members @ bedside to keep pt safe. Pt moving arms recklessly. @ bedside.
--- NOTE | 2021-02-09 13:05 | HMH.PULMPN ---
Internal Medicine - PN: Subj *Date: 02/09/21 *Time: 13:05 Interval history: No acute respiratory events overnight. Exam - Constitutional Constitutional:: Present: comfortable - HENMT Exam HENMT: Present: normocephalic - Eye Exam Eyes:: Present: normal appearance both eyes and related structures - Neck Exam Neck:: Present: normal visual inspection - Respiratory Exam Respiratory:: Present: normal breath sounds - Cardiovascular Exam Cardiac:: Present: S1, S2 - GI Exam GI:: Present: obese - Skin Exam Skin: Present: warm - Neurological Exam Neurological: Absent: alert, awake, normal cognition Intubated and sedated Assessment and Plan (1) SOB (shortness of breath) Status: Chronic Category: Medical Code(s): R06.02 - Shortness of breath (2) Low back pain Status: Acute Category: Medical Code(s): M54.5 - Low back pain (3) Elevated liver enzymes Status: Acute Category: Medical Code(s): R74.8 - Abnormal levels of other serum enzymes (4) Change in mental status Status: Acute Qualifiers: Altered mental status type: unspecified Qualified Code(s): R41.82 - Altered mental status, unspecified Category: Medical Code(s): R41.82 - Altered mental status, unspecified (5) Congestive heart failure (CHF) Status: Chronic Qualifiers: Heart failure type: diastolic Heart failure chronicity: acute on chronic Qualified Code(s): I50.33 - Acute on chronic diastolic (congestive) heart failure Category: Medical Code(s): I50.9 - Heart failure, unspecified (6) Diabetes mellitus Status: Chronic Qualifiers: Diabetes mellitus type: type 2 Diabetes mellitus retirement insulin use: with intermodal customer service use Diabetes mellitus complication status: without complication Qualified Code(s): E11.9 - Type 2 diabetes mellitus without complications; 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 Category: Medical Code(s): E11.9 - Type 2 diabetes mellitus without complications (7) HTN (hypertension) Status: Chronic Qualifiers: Hypertension type: primary hypertension Qualified Code(s): I10 - Essential (primary) hypertension Category: Medical Code(s): I10 - Essential (primary) hypertension (8) Hyperlipidemia Status: Chronic Qualifiers: Hyperlipidemia type: mixed hyperlipidemia Qualified Code(s): E78.2 - Mixed hyperlipidemia Category: Medical Code(s): E78.5 - Hyperlipidemia, unspecified (9) Orthopnea Status: Acute Category: Medical Code(s): R06.01 - Orthopnea (10) CAD (coronary artery disease) Status: Suspected Qualifiers: Coronary Disease-Associated Artery/Lesion type: [place] artery [place] vs. transplanted heart: [place] heart Associated angina: without angina Qualified Code(s): I25.10 - Atherosclerotic heart disease of [place] coronary artery without angina pectoris Category: Medical Code(s): I25.10 - Atherosclerotic heart disease of [place] coronary artery without angina pectoris (11) Fatty liver Status: Acute Category: Medical Code(s): K76.0 - Fatty (change of) liver, not elsewhere classified (12) Hyperglycemia due to diabetes mellitus Status: Chronic Category: Medical Code(s): E11.65 - Type 2 diabetes mellitus with hyperglycemia (13) Hypercapnia Status: Acute Category: Medical Code(s): R06.89 - Other abnormalities of breathing (14) COPD (chronic obstructive pulmonary disease) Status: Acute Category: Medical Code(s): J44.9 - Chronic obstructive pulmonary disease, unspecified (15) Smoker Status: Chronic Category: Social Hx Code(s): F17.200 - Nicotine dependence, unspecified, uncomplicated (16) Diabetic retinopathy Status: Chronic Category: Medical Code(s): E11.319 - Type 2 diabetes mellitus with unspecified diabetic retinopathy without macular edema (17) Respiratory failure Status: Acute Qualifiers: Chronicity: acute Category: Medical Code(s): J96.90 - Respirat
[2021-02-09 18:01] LABS: POC Glucose,Bedside 98 (70-110)
[2021-02-10] VITALS (30 sets, daily range): BP systolic 101–197; BP diastolic 62–110; PULSE 62–110; RESP 16–24; TEMP 36.4–38.6; O2SAT 91–99; BMI 47.0
[2021-02-10 00:33] LABS: POC Glucose,Bedside 97 (70-110)
--- NOTE | 2021-02-10 04:27 | PC.NURSE ---
He remains intubated and sedated. Plans for SPT later this morning. He is being turned and repositioned. HOB elevated 30 degrees. NSR on telemetry.
[2021-02-10 06:34] LABS: Basophils % 0.1 % (0.1-2.0); Lymphocytes % 7.7 % (10-50); Mean Corpuscular HGB Conc 29.3 g/dL (31.8-35.4); Mean Corpuscular Hemoglobin 22.1 pg (27.0-31.2); Mean Corpuscular Volume 75.3 fl (80-94); Mean Platelet Volume 8.4 fl (7.4-10.4); Monocytes # 0.7 K/mm3 (0.1-1.0); Monocytes % 5.6 % (1.7-9.3); Neutrophils # 11.4 K/mm3 (1.8-7.8); Neutrophils % 86.6 % (37.0-80.0); Platelet Count 388 K/mm3 (142-424); Red Blood Count 4.51 M/mm3 (4.60-6.20); White Blood Count 13.2 K/mm3 (4.8-10.8)
[2021-02-10 06:38] LABS: Chloride 105 mmol/L (98-107); Potassium 4.5 mmoL/L (3.5-5.1); Sodium 146 mmol/L (136-145)
[2021-02-10 06:41] LABS: Anion Gap 12.5 mEq/L (5-15); Blood Urea Nitrogen 64 mg/dl (9-20); Carbon Dioxide 33 mmol/L (22.0-30.0); Creatinine Clearance Estimated 67 mL/min (50-200); Estimated Glomerular Filt Rate 59 ml/min (>60); GFR (African American) 71 ML/MIN (>60)
[2021-02-10 06:42] LABS: Calcium 8.7 mg/dl (8.4-10.2); Glucose 310 mg/dl (74-100)
[2021-02-10 06:43] LABS: POC Glucose,Bedside 315 (70-110)
[2021-02-10 06:53] LABS: MANUAL DIFFERENTIAL MANUAL DIFFERENTIAL (MANUAL DIFF)
[2021-02-10 07:52] LABS: Lymphocytes % 7 % (10-50); Monocytes % 6 % (2-9); Neutrophils % 87 % (42-76); Platelet Estimate Normal; RBC Morphology Normal; Total Cells Counted 100
--- NOTE | 2021-02-10 09:02 | HMH.PULMPN ---
Internal Medicine - PN: Subj *Date: 02/10/21 *Time: 10:22 Interval history: No acute respite events overnight. Patient successfully extubate this morning to BiPAP. Exam - Constitutional Constitutional:: Present: comfortable - HENMT Exam HENMT: Present: normocephalic, atraumatic - Eye Exam Eyes:: Present: normal appearance both eyes and related structures - Neck Exam Neck:: Present: normal visual inspection - Respiratory Exam Respiratory:: Present: lungs clear, no respiratory distress. Absent: crackles, wheezing - Cardiovascular Exam Cardiac:: Present: S1, S2 - GI Exam GI:: Present: soft, obese - Skin Exam Skin: Present: rash - Neurological Exam Neurological: Absent: alert, awake, normal cognition - Extremities Exam Extremities: Present: no cyanosis, no clubbing Assessment and Plan (1) SOB (shortness of breath) Status: Chronic Category: Medical Code(s): R06.02 - Shortness of breath (2) Low back pain Status: Acute Category: Medical Code(s): M54.5 - Low back pain (3) Elevated liver enzymes Status: Acute Category: Medical Code(s): R74.8 - Abnormal levels of other serum enzymes (4) Change in mental status Status: Acute Qualifiers: Altered mental status type: unspecified Qualified Code(s): R41.82 - Altered mental status, unspecified Category: Medical Code(s): R41.82 - Altered mental status, unspecified (5) Congestive heart failure (CHF) Status: Chronic Qualifiers: Heart failure type: diastolic Heart failure chronicity: acute on chronic Qualified Code(s): I50.33 - Acute on chronic diastolic (congestive) heart failure Category: Medical Code(s): I50.9 - Heart failure, unspecified (6) Diabetes mellitus Status: Chronic Qualifiers: Diabetes mellitus type: type 2 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 Diabetes mellitus complication status: without complication Qualified Code(s): E11.9 - Type 2 diabetes mellitus without complications; Z79.4 - nursing home (current) use of insulin Category: Medical Code(s): E11.9 - Type 2 diabetes mellitus without complications (7) HTN (hypertension) Status: Chronic Qualifiers: Hypertension type: primary hypertension Qualified Code(s): I10 - Essential (primary) hypertension Category: Medical Code(s): I10 - Essential (primary) hypertension (8) Hyperlipidemia Status: Chronic Qualifiers: Hyperlipidemia type: mixed hyperlipidemia Qualified Code(s): E78.2 - Mixed hyperlipidemia Category: Medical Code(s): E78.5 - Hyperlipidemia, unspecified (9) Orthopnea Status: Acute Category: Medical Code(s): R06.01 - Orthopnea (10) CAD (coronary artery disease) Status: Suspected Qualifiers: Coronary Disease-Associated Artery/Lesion type: [place] artery [place] vs. transplanted heart: [place] heart Associated angina: without angina Qualified Code(s): I25.10 - Atherosclerotic heart disease of [place] coronary artery without angina pectoris Category: Medical Code(s): I25.10 - Atherosclerotic heart disease of [place] coronary artery without angina pectoris (11) Fatty liver Status: Acute Category: Medical Code(s): K76.0 - Fatty (change of) liver, not elsewhere classified (12) Hyperglycemia due to diabetes mellitus Status: Chronic Category: Medical Code(s): E11.65 - Type 2 diabetes mellitus with hyperglycemia (13) Hypercapnia Status: Acute Category: Medical Code(s): R06.89 - Other abnormalities of breathing (14) COPD (chronic obstructive pulmonary disease) Status: Acute Category: Medical Code(s): J44.9 - Chronic obstructive pulmonary disease, unspecified (15) Smoker Status: Chronic Category: Social Hx Code(s): F17.200 - Nicotine dependence, unspecified, uncomplicated (16) Diabetic retinopathy Status: Chronic Category: Medical Code(s): E11.319 - Type 2 diabetes mellitus with unspecified diabetic retinopat
[2021-02-10 09:35] LABS: ABG Base Excess 4.7 mmol/L (-2.4-2.3); ABG HCO3 29.5 mmhg (22.0-26.0); ABG Oxygen Saturation 88 % (90-100); ABG PCO2 48.9 mmhg (35.0-45.0); ABG PO2 57.1 mmhg (80-100); Allen's Test UNABLE; Oxygen 25 %; PEEP 5; Pressure Support 12; Source L RADIAL
--- NOTE | 2021-02-10 12:10 | HMH.ACPN2 ---
Internal Medicine - PN: Subj *Date: 02/10/21 *Time: 08:20 Interval history: pt laying in bed extubated thrashing around. trying to get oob but unsteady gait. pt keeps trying to get out of bed and is high risk for falls thrashing around has to be constantly reminded to stay in bed. Exam Vital signs and Labs for Last 24 Hours: Temp Pulse Resp BP Pulse Ox 97.5 F L 110 H 22 130/63 98 02/10/21 06:27 02/10/21 11:46 02/10/21 09:00 02/10/21 06:27 02/10/21 06:27 Laboratory Results - last 24 hr 02/09/21 17:13: POC Glucose 98 02/09/21 20:12: POC Glucose 97 02/10/21 05:00: WBC 13.2 H, RBC 4.51 L, Hgb 10.0 L, Hct 34.0 L, MCV 75.3 L, MCH 22.1 L, MCHC 29.3 L, RDW 16.0, Plt Count 388, MPV 8.4, Neut % (Auto) 86.6 H, Lymph % (Auto) 7.7 L, [place] % (Auto) 5.6, Eos % (Auto) 0.0 L, Baso % (Auto) 0.1, Neut # (Auto) 11.4 H, Lymph # (Auto) 1.0, [place] # (Auto) 0.7, Eos # (Auto) 0.0, Baso # (Auto) 0.0, Total Counted 100, Neutrophils % (Manual) 87 H, Lymphocytes % (Manual) 7 L, Monocytes % (Manual) 6, Platelet Estimate Normal, RBC Morphology Normal 02/10/21 05:00: Sodium 146 H, Potassium 4.5, Chloride 105, Carbon Dioxide 33 H, Anion Gap 12.5, BUN 64 H, Creatinine 1.30 H, Estimated Creat Clear 67, Estimated GFR 59, Est GFR ( Amer) 71, Glucose 310 H, Calcium 8.7 02/10/21 05:13: POC Glucose 315 H* 02/10/21 08:36: Specimen Source L radial, O2 % 25, ABG pH 7.40, ABG pCO2 48.9 H, ABG pO2 57.1 L, ABG HCO3 29.5 H, ABG Total CO2 31.0 H, ABG O2 Saturation 88 L, ABG Base Excess 4.7 H, Mj Test Unable, PEEP 5 I & O for Last 24 hours: Intake & Output 02/08/21 02/09/21 02/10/21 02/11/21 11:59 11:59 11:59 11:59 Intake Total 3541 / 3565 1689.000 / 1689.000 399 / 399 Output Total 4870 / 5130 3530 / 3530 2034 / 2034 Balance -1329 / -1565 -1841.000 / -1841.000 -1636 / -1636 Weight 311 lb 8 oz 305 lb 1 oz 310 lb 3.046 oz Microbiology Reports for the Last 24 Hours: Microbiology 02/07/21 14:45 Sputum - Endotracheal Tube Aspirate Gram Stain - Final 02/07/21 14:45 Sputum - Endotracheal Tube Aspirate Sputum Culture - Preliminary - Constitutional no acute distress, morbidly obese - *Routine HEENT Exam Head: Present: normocephalic Eye: Present: PERRL ENT: Present: mucous membranes moist - *Routine Neck Exam Present: supple. Absent: lymphadenopathy - *Routine Respiratory Exam Present: CTA bilaterally - *Routine Cardiovascular Exam Present: RRR - *Routine Abdominal Exam Present: soft, normoactive bowel sounds, obese. Absent: tenderness - *Routine Extremities Exam Absent: cyanosis, clubbing, edema - *Routine Skin Exam Present: warm. Absent: rash - *Routine Neurological Exam Present: altered mental status - Routine Psychiatric Exam Present: agitated, unable to assess Assessment and Plan (1) SOB (shortness of breath) Status: Chronic Category: Medical Code(s): R06.02 - Shortness of breath (2) Low back pain Status: Acute Category: Medical Code(s): M54.5 - Low back pain (3) Elevated liver enzymes Status: Acute Category: Medical Code(s): R74.8 - Abnormal levels of other serum enzymes (4) Change in mental status Status: Acute Qualifiers: Altered mental status type: unspecified Qualified Code(s): R41.82 - Altered mental status, unspecified Category: Medical Code(s): R41.82 - Altered mental status, unspecified (5) Congestive heart failure (CHF) Status: Chronic Qualifiers: Heart failure type: diastolic Heart failure chronicity: acute on chronic Qualified Code(s): I50.33 - Acute on chronic diastolic (congestive) heart failure Category: Medical Code(s): I50.9 - Heart failure, unspecified (6) Diabetes mellitus Status: Chronic Qualifiers: Diabetes mellitus type: type 2 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
[2021-02-10 13:19] LABS: POC Glucose,Bedside 376 (70-110)
--- NOTE | 2021-02-10 13:25 | PC.NURSE ---
1200 called and notified MD office that pt was in 4[pt restraints as of 1130. does pt need to still be ICU? 1215 new orders, ok to move pt to SD status
--- NOTE | 2021-02-10 13:26 | PC.NURSE ---
pt vent was switched to SBT and sedation turned off at 0740. once sedation wore off, pt became combative. pt had to be physically restrained to prevent him from self extubating. pt did manage to dislodge 2 of his own iv's. dr renteria was notified at 0800 of pt being combative. ordered for pt to have a 2mg dose of haldol at this time. pt was successfully extubated to bipap at 0900. pt continued to be agitated, order was given from Dr Mathis that pt may be placed in restraints. pt was also given 2mg dilaudid per scheduled order. Zyprexa was also brought from pharmacy for administration and given pt was able to rest with bipap in place until 1050. pt was given another dose of dilaudid, as well as an additional dose of zyprexa. as of 113 pt was still non compliant and combative with staff. pt was thrashing in bed and attempting to get on hands and knees in the middle of the bed. and was a risk for falling out of the bed. pt was a danger to himself as well as to others and was placed in locking restraints at 1130 by Damian Reynolds and Eyal Hernadez. pt is 1:1 as of 113
--- NOTE | 2021-02-10 15:10 | PC.NURSE ---
pt was assessed prior to extubation but assessment revealed little r/t sedation and intubation. pt was reassessed following extubation.
--- NOTE | 2021-02-10 15:12 | PC.NURSE ---
scleral edema noted bilaterally. pt does not speak, thrashes in bed during assessment
--- NOTE | 2021-02-10 15:21 | PC.NURSE ---
pt is currently in restraints. they were applied at 1130. pt has remained combative and uncooperative. pt does note respond verbally or follow any type of command. pt is noted to occasionally grunt or growl at staff, no other vocalizations noted. pt does not track anything with his eyes. pt is noted to thrash and twist in bed. staff is present at bedside 1:1
--- NOTE | 2021-02-10 15:30 | PC.NURSE ---
spoke with jalil griggs. order continued for restraints at 3835
--- NOTE | 2021-02-10 15:57 | PC.NURSE ---
called to clarify drip for pt. fsbs have been in the upper 300's. pt has d5 ns @200 ordered. per jalil griggs dc d5ns. start ns @ 125. spoke with valorie and informed her that the pt is still extremely agitated and restless and concern of pt dislodging iv exsists.
--- NOTE | 2021-02-10 16:10 | PC.NURSE ---
all 4 restraints removed one at a time. loosened, skin checked for breakdown, area where restraints touch was massaged and joints checked for swelling as well.
[2021-02-10 17:27] LABS: POC Glucose,Bedside 144 (70-110)
--- NOTE | 2021-02-10 18:14 | PC.NURSE ---
pt meets criteria for medical restraints per policy. order for restraints entered in comp. (verbal order given to this rn by Dr Mathis during am rounds.) applied at 1130, pt is 1:1 pt is at risk of injuring himself r/t standing up in bed and falling. pt does not follow commands to redirect. pt pulls off bipap mask and pulls out iv's which prevent medical care being given. pt is combative with staff and attempts to hit staff. pt was unable to be redirected with help from family. lights were dimmed, excess cords were removed. pt was given medication to help with agitation. all were unsuccessful.
--- NOTE | 2021-02-10 19:56 | PC.NURSE ---
jalil griggs gave telephone order to continue restraints at 1930
--- NOTE | 2021-02-10 21:46 | PC.NURSE ---
He is in bed 1:1 in 4 point restraints. He is unable to answer questions but has frequent movements. He is agitated. He continues on the bipap with 25% FiO2. Unable to calm despite numerous attempts. Positive radial and pedal pulses. Capillary refill <3. He does not follow commands. Scleral edema present. His speech is inaudible. F/c patent with dark yellow urine with sediment.
[2021-02-11] VITALS (23 sets, daily range): BP systolic 119–213; BP diastolic 59–107; PULSE 70–103; RESP 12–24; TEMP 37.4–39.6; O2SAT 62–99; BMI 48.3
[2021-02-11 00:55] LABS: POC Glucose,Bedside 198 (70-110)
[2021-02-11 06:41] LABS: POC Glucose,Bedside 331 (70-110)
[2021-02-11 08:48] LABS: POC Glucose,Bedside 254 (70-110)
[2021-02-11 09:02] LABS: Basophils % 0.3 % (0.1-2.0); Eosinophils # 0.1 K/mm3 (0.0-0.4); Eosinophils % 0.4 % (0.1-12.0); Hematocrit 34.9 % (42.0-52.0); Hemoglobin 10.3 g/dL (14.1-18.0); Lymphocytes # 1.5 K/mm3 (0.7-4.5); Lymphocytes % 9.5 % (10-50); Mean Corpuscular HGB Conc 29.6 g/dL (31.8-35.4); Mean Corpuscular Hemoglobin 22.1 pg (27.0-31.2); Mean Corpuscular Volume 74.6 fl (80-94); Mean Platelet Volume 8.3 fl (7.4-10.4); Monocytes # 1.3 K/mm3 (0.1-1.0); Neutrophils # 13.2 K/mm3 (1.8-7.8); Neutrophils % 81.8 % (37.0-80.0); Platelet Count 401 K/mm3 (142-424); Red Blood Count 4.68 M/mm3 (4.60-6.20); Red Cell Distribution Width 15.9 % (11.5-17.5); White Blood Count 16.1 K/mm3 (4.8-10.8)
[2021-02-11 09:03] LABS: Anion Gap 11.7 mEq/L (5-15); Blood Urea Nitrogen 56 mg/dl (9-20); Calcium 9.2 mg/dl (8.4-10.2); Carbon Dioxide 36 mmol/L (22.0-30.0); Chloride 108 mmol/L (98-107); Creatinine Clearance Estimated 62 mL/min (50-200); Estimated Glomerular Filt Rate 54 ml/min (>60); GFR (African American) 65 ML/MIN (>60); Glucose 285 mg/dl (74-100); Potassium 4.7 mmoL/L (3.5-5.1)
[2021-02-11 09:19] LABS: MANUAL DIFFERENTIAL MANUAL DIFFERENTIAL (MANUAL DIFF)
--- NOTE | 2021-02-11 09:19 | HMH.ACPN2 ---
Internal Medicine - PN: Subj *Date: 02/11/21 *Time: 20:05 Interval history: 50-year-old male patient remains in bed BiPAP intact at 16/5 25%, oxygen saturations 94%. Patient becomes extremely agitated off and on throughout day no apparent reason as to why, he is unresponsive to verbal stimuli, sitter is currently in room. Exam Vital signs and Labs for Last 24 Hours: Temp Pulse Resp BP Pulse Ox 100.6 F H 103 H 22 213/98 H 98 02/11/21 07:53 02/11/21 07:53 02/11/21 07:53 02/11/21 07:53 02/11/21 07:53 Laboratory Results - last 24 hr 02/10/21 08:36: Specimen Source L radial, O2 % 25, ABG pH 7.40, ABG pCO2 48.9 H, ABG pO2 57.1 L, ABG HCO3 29.5 H, ABG Total CO2 31.0 H, ABG O2 Saturation 88 L, ABG Base Excess 4.7 H, Mj Test Unable, PEEP 5 02/10/21 13:07: POC Glucose 376 H* 02/10/21 17:06: POC Glucose 144 H 02/10/21 20:37: POC Glucose 198 H 02/11/21 06:26: POC Glucose 331 H* 02/11/21 08:30: WBC 16.1 H, RBC 4.68, Hgb 10.3 L, Hct 34.9 L, MCV 74.6 L, MCH 22.1 L, MCHC 29.6 L, RDW 15.9, Plt Count 401, MPV 8.3, Neut % (Auto) 81.8 H, Lymph % (Auto) 9.5 L, [place] % (Auto) 8.0, Eos % (Auto) 0.4, Baso % (Auto) 0.3, Neut # (Auto) 13.2 H, Lymph # (Auto) 1.5, [place] # (Auto) 1.3 H, Eos # (Auto) 0.1, Baso # (Auto) 0.0 02/11/21 08:38: POC Glucose 254 H I & O for Last 24 hours: Intake & Output 02/08/21 02/09/21 02/10/21 02/11/21 23:59 23:59 23:59 23:59 Intake Total 2610.708 / 2680.708 917.292 / 938.292 168 / 168 Output Total 4235 / 4585 2910 / 3085 4600 / 4600 Balance -1624.292 / -1904.292 -1991.708 / -2146.708 -4432 / -4432 Weight 311 lb 8 oz 305 lb 1 oz 310 lb 3.046 oz 318 lb 15.437 oz Microbiology Reports for the Last 24 Hours: Microbiology 02/07/21 14:45 Sputum - Endotracheal Tube Aspirate Gram Stain - Final 02/07/21 14:45 Sputum - Endotracheal Tube Aspirate Sputum Culture - Preliminary Yeast - Constitutional mild distress, morbidly obese, agitated - *Routine HEENT Exam Head: Present: normocephalic Eye: Present: EOMI ENT: Present: mucous membranes moist - *Routine Neck Exam Present: trachea midline. Absent: tracheal deviation - *Routine Respiratory Exam Present: CTA bilaterally. Absent: accessory muscle use - *Routine Cardiovascular Exam Present: RRR - *Routine Abdominal Exam Present: soft, normoactive bowel sounds. Absent: tenderness, firm - *Routine Extremities Exam Present: full ROM, pulses intact. Absent: cyanosis, clubbing - *Routine Skin Exam Present: intact, warm. Absent: cyanosis, erythema - *Routine Neurological Exam Present: altered mental status - Routine Psychiatric Exam Present: unable to assess Assessment and Plan (1) SOB (shortness of breath) Status: Chronic Category: Medical Code(s): R06.02 - Shortness of breath (2) Low back pain Status: Acute Category: Medical Code(s): M54.5 - Low back pain (3) Elevated liver enzymes Status: Acute Category: Medical Code(s): R74.8 - Abnormal levels of other serum enzymes (4) Change in mental status Status: Acute Qualifiers: Altered mental status type: unspecified Qualified Code(s): R41.82 - Altered mental status, unspecified Category: Medical Code(s): R41.82 - Altered mental status, unspecified (5) Congestive heart failure (CHF) Status: Chronic Qualifiers: Heart failure type: diastolic Heart failure chronicity: acute on chronic Qualified Code(s): I50.33 - Acute on chronic diastolic (congestive) heart failure Category: Medical Code(s): I50.9 - Heart failure, unspecified (6) Diabetes mellitus Status: Chronic Qualifiers: Diabetes mellitus type: type 2 Diabetes mellitus terminal block assembler insulin use: with mcfp use Diabetes mellitus complication status: without complication Qualified Code(s): E11.9 - Type 2 diabetes mellitus without complications; Z79.4 - oysterman (current) use of insulin Category: Medical Code(s): E11.9 - T
[2021-02-11 09:22] LABS: Sodium 151 mmol/L (136-145)
--- NOTE | 2021-02-11 09:23 | PC.NURSE ---
spoke to lab (Mirna). She reports that Na is 151. Name and verified. Dr. Villagomez updated.
[2021-02-11 09:51] LABS: ABG Base Excess 8.9 mmol/L (-2.4-2.3); ABG HCO3 32.7 mmhg (22.0-26.0); ABG Oxygen Saturation 92 % (90-100); ABG PCO2 46.7 mmhg (35.0-45.0); ABG PH 7.46 mmol/L (7.35-7.45); ABG PO2 66.4 mmhg (80-100); ABG TCO2 34.1 mmhg (23-27)
[2021-02-11 09:52] LABS: Allen's Test Patient Unable; Oxygen 25 %; Source Left Brachial; Vent Rate 20
[2021-02-11 10:07] LABS: Ammonia 21 umol/L (9-30)
[2021-02-11 10:31] LABS: Hypochromasia 2+; Lymphocytes % 15 % (10-50); Microcytosis 1+; Monocytes % 5 % (2-9); Neutrophils % 76 % (42-76); Platelet Estimate Normal; Total Cells Counted 100
[2021-02-11 11:48] LABS: ABG Base Excess 9.1 mmol/L (-2.4-2.3); ABG HCO3 33.2 mmhg (22.0-26.0); ABG Oxygen Saturation 98 % (90-100); ABG PCO2 49.8 mmhg (35.0-45.0); ABG PH 7.44 mmol/L (7.35-7.45); ABG PO2 96.3 mmhg (80-100); ABG TCO2 34.7 mmhg (23-27)
[2021-02-11 11:50] LABS: Allen's Test Patient Unable; Oxygen 4 LPM NC %; Source Left Brachial
--- NOTE | 2021-02-11 11:54 | PC.NURSE ---
Dr. Villagomez notified that FSBS is 44. 1amp of D50 IVP given. STAT labs entered (blood glucose, BMP, and serum ketones).
[2021-02-11 12:47] LABS: Chloride 112 mmol/L (98-107); Potassium 4.9 mmoL/L (3.5-5.1)
[2021-02-11 12:50] LABS: Blood Urea Nitrogen 59 mg/dl (9-20); Creatinine Clearance Estimated 51 mL/min (50-200); Estimated Glomerular Filt Rate 43 ml/min (>60); GFR (African American) 52 ML/MIN (>60)
[2021-02-11 12:51] LABS: Anion Gap 11.9 mEq/L (5-15); Calcium 9.1 mg/dl (8.4-10.2); Carbon Dioxide 38 mmol/L (22.0-30.0); Glucose 88 mg/dl (74-100)
[2021-02-11 12:53] LABS: Sodium 157 mmol/L (136-145)
--- NOTE | 2021-02-11 12:56 | PC.NURSE ---
Richy Castro APRN notified of the following: glucose 88 and Na 157.
[2021-02-11 13:04] LABS: Acetone, Serum (Rapid) None Detected (None Detect)
[2021-02-11 15:24] LABS: Glucose,Random 111 mg/dL (74-100)
[2021-02-11 17:01] LABS: POC Glucose,Bedside 82 (70-110)
[2021-02-11 17:02] LABS: POC Glucose,Bedside 81 (70-110)
[2021-02-11 19:45] LABS: POC Glucose,Bedside 114 (70-110)
[2021-02-11 19:48] LABS: Chloride 114 mmol/L (98-107)
[2021-02-11 19:49] LABS: Potassium 4.7 mmoL/L (3.5-5.1)
[2021-02-11 19:52] LABS: Anion Gap 13.7 mEq/L (5-15); Blood Urea Nitrogen 55 mg/dl (9-20); Calcium 8.8 mg/dl (8.4-10.2); Carbon Dioxide 34 mmol/L (22.0-30.0); Creatinine Clearance Estimated 51 mL/min (50-200); Estimated Glomerular Filt Rate 43 ml/min (>60); GFR (African American) 52 ML/MIN (>60); Glucose 163 mg/dl (74-100)
[2021-02-11 19:54] LABS: Sodium 157 mmol/L (136-145)
--- NOTE | 2021-02-11 20:00 | PC.NURSE ---
dr. mendoza at bedside assessment complete and informed of critical na level. new order received.
--- NOTE | 2021-02-11 20:16 | XR_ITS ---
PROCEDURE INFORMATION: Exam: XR Chest Exam date and time: 02/11/21 08:16 PM Age: 50 years old Clinical indication: Fever; Patient HX: Recently extubated TECHNIQUE: Imaging protocol: XR of the chest. Views: 1 view. COMPARISON: CR XR CHEST PORTABLE 02/08/21 05:04 AM FINDINGS: Lungs: Improving aeration of the left lower lobe since comparison 02/08/2021. Pleural spaces: Unremarkable. No pleural effusion. No pneumothorax. Heart/Mediastinum: Unremarkable. No cardiomegaly. Bones/joints: Unremarkable. IMPRESSION: Improving aeration of the left lower lobe since comparison 02/08/2021.
[2021-02-11 20:29] LABS: POC Glucose,Bedside 182 (70-110)
[2021-02-11 21:03] LABS: Lactic Acid 1.1 mmol/L (0.7-2.1)
[2021-02-12] VITALS (26 sets, daily range): BP systolic 112–234; BP diastolic 66–112; PULSE 70–98; RESP 14–26; TEMP 37.2–38.6; O2SAT 92–100
[2021-02-12 05:01] LABS: POC Glucose,Bedside 268 (70-110)
--- NOTE | 2021-02-12 06:15 | PC.NURSE ---
shift summary patient spiked temp of 103 rectally at beginning of shift, dr. mendoza notified, new orders received for abx changes, lab and xray. patient. continues to thrash around throughout shift while being medicated with dilaudid, haldol and ativan. patient continuously yells out, does not follow commands. bp has been elevated thoughout shift as well requiring several doses of labatolol. o2 sats have maintained greater than 92% on bipap
[2021-02-12 06:26] LABS: Basophils % 0.2 % (0.1-2.0); Eosinophils # 0.1 K/mm3 (0.0-0.4); Eosinophils % 0.3 % (0.1-12.0); Hematocrit 35.9 % (42.0-52.0); Hemoglobin 10.3 g/dL (14.1-18.0); Lymphocytes # 2.3 K/mm3 (0.7-4.5); Mean Corpuscular HGB Conc 28.8 g/dL (31.8-35.4); Mean Corpuscular Hemoglobin 22.6 pg (27.0-31.2); Mean Corpuscular Volume 78.6 fl (80-94); Mean Platelet Volume 8.1 fl (7.4-10.4); Monocytes # 1.2 K/mm3 (0.1-1.0); Monocytes % 6.1 % (1.7-9.3); Neutrophils # 15.4 K/mm3 (1.8-7.8); Neutrophils % 81.4 % (37.0-80.0); Platelet Count 357 K/mm3 (142-424); Red Blood Count 4.57 M/mm3 (4.60-6.20); Red Cell Distribution Width 15.9 % (11.5-17.5); White Blood Count 18.9 K/mm3 (4.8-10.8)
[2021-02-12 06:27] LABS: MANUAL DIFFERENTIAL MANUAL DIFFERENTIAL (MANUAL DIFF)
[2021-02-12 06:46] LABS: Potassium 5.3 mmoL/L (3.5-5.1)
[2021-02-12 06:49] LABS: Creatinine Clearance Estimated 46 mL/min (50-200); Estimated Glomerular Filt Rate 38 ml/min (>60); GFR (African American) 46 ML/MIN (>60)
[2021-02-12 07:06] LABS: Chloride 113 mmol/L (98-107)
[2021-02-12 07:10] LABS: Anion Gap 16.3 mEq/L (5-15); Blood Urea Nitrogen 60 mg/dl (9-20); Calcium 8.7 mg/dl (8.4-10.2); Carbon Dioxide 30 mmol/L (22.0-30.0); Glucose 307 mg/dl (74-100)
[2021-02-12 07:20] LABS: Sodium 154 mmol/L (136-145)
--- NOTE | 2021-02-12 07:22 | PC.NURSE ---
dr. naranjo notified of critical na, no new orders received.
[2021-02-12 07:44] LABS: Anisocytosis 1+; Hypochromasia 2+; Lymphocytes % 17 % (10-50); Microcytosis 1+; Monocytes % 7 % (2-9); Neutrophils % 73 % (42-76); Platelet Estimate Normal; Total Cells Counted 100
--- NOTE | 2021-02-12 09:17 | HMH.PHACONS ---
- Pharmacy Consult Date: 02/12/21 Time: 09:17 Referring provider: HAL Reason for Consult:: MANAGEMENT VANCOMYCIN THERAPY Allergies and ADEs:: Allergies Allergy/AdvReac Type Severity Reaction Status Date / Time pregabalin [From Lyrica] AdvReac made skin Verified 01/18/21 10:24 crawl Home Medications:: Home Medications Medication Instructions Recorded Confirmed Type aspirin 81 mg tablet,delayed 81 mg PO DAILY tab 10/27/17 02/03/21 History release pantoprazole 40 mg tablet,delayed 40 mg PO DAILY 10/27/17 02/04/21 History release omega-3 acid ethyl esters 1 gram 4 cap PO DAILY cap 11/08/17 02/03/21 History capsule albuterol sulfate 90 mcg/actuation 2 puff INHALATION Q4-6H PRN 01/18/21 02/03/21 History aerosol inhaler bupropion HCl (smoking deter) 150 150 mg PO BID 01/18/21 02/03/21 History mg tablet,12 hr sustained-release(smoking deterrent) buspirone 30 mg tablet 30 mg PO TID tab 01/18/21 02/03/21 History carvedilol 25 mg tablet 25 mg PO BID 01/18/21 02/03/21 History cholecalciferol (vitamin D3) 1,250 1,250 mcg PO WEEKLY 01/18/21 02/03/21 History mcg (50,000 unit) capsule duloxetine 30 mg capsule,delayed 60 mg PO DAILY cap 01/18/21 02/03/21 History release lorazepam 1 mg tablet 1 mg PO BIDP PRN 01/18/21 02/03/21 History losartan 100 mg tablet 100 mg PO DAILY 01/18/21 02/03/21 History magnesium oxide 400 mg PO DAILY 01/18/21 02/03/21 History pramipexole 1 mg tablet 1 mg PO TID 01/18/21 02/03/21 History quetiapine 300 mg tablet 600 mg PO HS tab 01/18/21 02/03/21 History umeclidinium 62.5 mcg-vilanterol 1 inh INHALATION DAILY 01/18/21 02/03/21 History 25 mcg/actuation powdr for inhalation Atorvastatin Calcium [Lipitor 80mg 80 mg PO DAILY 01/29/21 02/03/21 History Tablet*] Doxazosin Mesylate [Cardura 4mg 2 mg PO BID 01/29/21 02/03/21 History Tab] Gabapentin 800 mg PO TID 01/29/21 02/03/21 History Insulin Aspart [Insulin Aspart 75 unit SQ TIDWMEAL 01/29/21 02/04/21 History Flexpen] Insulin Glargine,Hum.rec.anlog 200 unit SQ HS 01/29/21 02/03/21 History [Toukatelyn Michael Solostar] Furosemide [Lasix 80mg tablet] 80 mg PO DAILY 02/03/21 02/03/21 History Metformin HCl [Metformin HCl ER] 500 mg PO QPMWITHMEAL 02/03/21 02/04/21 History Height: 1.73 m Weight: 144.68 kg Laboratory Results:: Laboratory Results - last 24 hr 02/11/21 08:30: WBC 16.1 H, RBC 4.68, Hgb 10.3 L, Hct 34.9 L, MCV 74.6 L, MCH 22.1 L, MCHC 29.6 L, RDW 15.9, Plt Count 401, MPV 8.3, Neut % (Auto) 81.8 H, Lymph % (Auto) 9.5 L, [place] % (Auto) 8.0, Eos % (Auto) 0.4, Baso % (Auto) 0.3, Neut # (Auto) 13.2 H, Lymph # (Auto) 1.5, [place] # (Auto) 1.3 H, Eos # (Auto) 0.1, Baso # (Auto) 0.0, Total Counted 100, Neutrophils % (Manual) 76, Band Neutrophils % 3.0, Lymphocytes % (Manual) 15, Monocytes % (Manual) 5, Basophils % (Manual) 1.0, Platelet Estimate Normal, Hypochromasia 2+, Microcytosis 1+ 02/11/21 08:30: Sodium 151 H*, Potassium 4.7, Chloride 108 H, Carbon Dioxide 36 H, Anion Gap 11.7, BUN 56 H, Creatinine 1.40 H, Estimated Creat Clear 62, Estimated GFR 54 L, Est GFR ( Amer) 65, Glucose 285 H, Calcium 9.2 02/11/21 09:20: Specimen Source Left brachial, O2 % 25, ABG pH 7.46 H, ABG pCO2 46.7 H, ABG pO2 66.4 L, ABG HCO3 32.7 H, ABG Total CO2 34.1 H, ABG O2 Saturation 92, ABG Base Excess 8.9 H, Mj Test Patient unable, Vent Rate 02/11/21 09:50: Ammonia 02/11/21 12:14: Sodium 157 H*, Potassium 4.9, Chloride 112 H, Carbon Dioxide 38 H, Anion Gap 11.9, BUN 59 H, Creatinine 1.70 H D, Estimated Creat Clear 51, Estimated GFR 43 L, Est GFR ( Amer) 52 L, Glucose 88 D, Calcium 9.1, Acetone Level None detected 02/11/21 15:08: Random Glucose 111 H 02/11/21 15:21: POC Glucose 82 02/11/21 16:38: POC Glucose 81 02/11/21 17:53: POC Glucose 114 H 02/11/21 19:22: Sodium 157 H*, Potassium 4.7, Chloride 114 H, Carbon Dioxide 34 H, Anion Gap 13.7, BUN 55 H, Creatinine 1.70 H, Estimated Creat Clear 51, Estimated GFR
--- NOTE | 2021-02-12 09:18 | HMH.ACPN2 ---
Internal Medicine - PN: Subj *Date: 02/12/21 *Time: 08:15 Interval history: pt answers to dr naranjo when spoken to follow commands to open eyes. Pt still thrashing around and growling. per family pt acted the same way when he overdosed on bath salts and heroin. Exam Vital signs and Labs for Last 24 Hours: Temp Pulse Resp BP Pulse Ox 100.2 F H 98 H 26 H 209/100 H 99 02/12/21 04:00 02/12/21 06:15 02/12/21 06:00 02/12/21 08:33 02/12/21 06:00 Laboratory Results - last 24 hr 02/11/21 08:30: Total Counted 100, Neutrophils % (Manual) 76, Band Neutrophils % 3.0, Lymphocytes % (Manual) 15, Monocytes % (Manual) 5, Basophils % (Manual) 1.0, Platelet Estimate Normal, Hypochromasia 2+, Microcytosis 1+ 02/11/21 08:30: Sodium 151 H*, Potassium 4.7, Chloride 108 H, Carbon Dioxide 36 H, Anion Gap 11.7, BUN 56 H, Creatinine 1.40 H, Estimated Creat Clear 62, Estimated GFR 54 L, Est GFR ( Amer) 65, Glucose 285 H, Calcium 9.2 02/11/21 09:20: Specimen Source Left brachial, O2 % 25, ABG pH 7.46 H, ABG pCO2 46.7 H, ABG pO2 66.4 L, ABG HCO3 32.7 H, ABG Total CO2 34.1 H, ABG O2 Saturation 92, ABG Base Excess 8.9 H, Mj Test Patient unable, Vent Rate 20 02/11/21 09:50: Ammonia 02/11/21 12:14: Sodium 157 H*, Potassium 4.9, Chloride 112 H, Carbon Dioxide 38 H, Anion Gap 11.9, BUN 59 H, Creatinine 1.70 H D, Estimated Creat Clear 51, Estimated GFR 43 L, Est GFR ( Amer) 52 L, Glucose 88 D, Calcium 9.1, Acetone Level None detected 02/11/21 15:08: Random Glucose 111 H 02/11/21 15:21: POC Glucose 82 02/11/21 16:38: POC Glucose 81 02/11/21 17:53: POC Glucose 114 H 02/11/21 19:22: Sodium 157 H*, Potassium 4.7, Chloride 114 H, Carbon Dioxide 34 H, Anion Gap 13.7, BUN 55 H, Creatinine 1.70 H, Estimated Creat Clear 51, Estimated GFR 43 L, Est GFR ( Amer) 52 L, Glucose 163 H D, Calcium 8.8 02/11/21 20:10: POC Glucose 182 H 02/11/21 20:43: Lactate 1.1 02/11/21 : Specimen Source Left brachial, O2 % 4 lpm nc, ABG pH 7.44, ABG pCO2 49.8 H, ABG pO2 96.3, ABG HCO3 33.2 H, ABG Total CO2 34.7 H, ABG O2 Saturation 98, ABG Base Excess 9.1 H, Mj Test Patient unable 02/12/21 04:51: POC Glucose 268 H 02/12/21 05:46: WBC 18.9 H, RBC 4.57 L, Hgb 10.3 L, Hct 35.9 L, MCV 78.6 L, MCH 22.6 L, MCHC 28.8 L, RDW 15.9, Plt Count 357, MPV 8.1, Neut % (Auto) 81.4 H, Lymph % (Auto) 12.0, [place] % (Auto) 6.1, Eos % (Auto) 0.3, Baso % (Auto) 0.2, Neut # (Auto) 15.4 H, Lymph # (Auto) 2.3, [place] # (Auto) 1.2 H, Eos # (Auto) 0.1, Baso # (Auto) 0.0, Total Counted 100, Neutrophils % (Manual) 73, Band Neutrophils % 3.0, Lymphocytes % (Manual) 17, Monocytes % (Manual) 7, Platelet Estimate Normal, Hypochromasia 2+, Anisocytosis 1+, Microcytosis 1+ 02/12/21 05:46: Sodium 154 H*, Potassium 5.3 H, Chloride 113 H, Carbon Dioxide 30, Anion Gap 16.3 H, BUN 60 H, Creatinine 1.90 H, Estimated Creat Clear 46, Estimated GFR 38 L, Est GFR ( Amer) 46 L, Glucose 307 H D, Calcium 8.7 I & O for Last 24 hours: Intake & Output 02/09/21 02/10/21 02/11/21 08/20/21 11:59 11:59 11:59 11:59 Intake Total 1689.000 / 1689.000 399 / 399 0 / 0 125 / 125 Output Total 3530 / 3530 3535 / 3535 2099 / 2099 2450 / 2450 Balance -1841.000 / -1841.000 -3136 / -3136 -2100 / -2100 -2325 / -2325 Weight 305 lb 1 oz 310 lb 3.046 oz 318 lb 15.437 oz Microbiology Reports for the Last 24 Hours: Microbiology 02/07/21 14:45 Sputum - Endotracheal Tube Aspirate Gram Stain - Final 02/07/21 14:45 Sputum - Endotracheal Tube Aspirate Sputum Culture - Preliminary Yeast - Constitutional no acute distress, morbidly obese - *Routine HEENT Exam Head: Present: normocephalic Eye: Present: PERRL ENT: Present: mucous membranes moist - *Routine Neck Exam Present: supple. Absent: lymphadenopathy - *Routine Respiratory Exam Present: CTA bilaterally - *Routine Cardiovascular Exam Present: RRR - *Routine Abdominal Exam Present: soft, normoactive bowel sounds, obese. A
[2021-02-12 11:33] LABS: POC Glucose,Bedside 238 (70-110)
--- NOTE | 2021-02-12 14:26 | HMH.PULMPN ---
Internal Medicine - PN: Subj *Date: 02/12/21 *Time: 14:26 Interval history: No acute respiratory vents overnight. Patient continued to be agitated Exam - Constitutional Constitutional:: Present: no acute distress, comfortable - HENMT Exam HENMT: Present: normocephalic, atraumatic - Eye Exam Eyes:: Present: normal appearance both eyes and related structures - Neck Exam Neck:: Present: normal visual inspection - Respiratory Exam Respiratory:: Present: able to speak in complete sentences, no respiratory distress. Absent: wheezing - Cardiovascular Exam Cardiac:: Present: S1, S2 - GI Exam GI:: Present: soft, obese - Skin Exam Skin: Present: warm, rash - Neurological Exam Neurological: Absent: alert, awake, normal cognition - Extremities Exam Extremities: Present: no cyanosis, no clubbing Assessment and Plan (1) SOB (shortness of breath) Status: Chronic Category: Medical Code(s): R06.02 - Shortness of breath (2) Low back pain Status: Acute Category: Medical Code(s): M54.5 - Low back pain (3) Elevated liver enzymes Status: Acute Category: Medical Code(s): R74.8 - Abnormal levels of other serum enzymes (4) Change in mental status Status: Acute Qualifiers: Altered mental status type: unspecified Qualified Code(s): R41.82 - Altered mental status, unspecified Category: Medical Code(s): R41.82 - Altered mental status, unspecified (5) Congestive heart failure (CHF) Status: Chronic Qualifiers: Heart failure type: diastolic Heart failure chronicity: acute on chronic Qualified Code(s): I50.33 - Acute on chronic diastolic (congestive) heart failure Category: Medical Code(s): I50.9 - Heart failure, unspecified (6) Diabetes mellitus Status: Chronic Qualifiers: Diabetes mellitus type: type 2 Diabetes mellitus 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 insulin use: with alf use Diabetes mellitus complication status: without complication Qualified Code(s): E11.9 - Type 2 diabetes mellitus without complications; Z79.4 - [facility] (current) use of insulin Category: Medical Code(s): E11.9 - Type 2 diabetes mellitus without complications (7) HTN (hypertension) Status: Chronic Qualifiers: Hypertension type: primary hypertension Qualified Code(s): I10 - Essential (primary) hypertension Category: Medical Code(s): I10 - Essential (primary) hypertension (8) Hyperlipidemia Status: Chronic Qualifiers: Hyperlipidemia type: mixed hyperlipidemia Qualified Code(s): E78.2 - Mixed hyperlipidemia Category: Medical Code(s): E78.5 - Hyperlipidemia, unspecified (9) Orthopnea Status: Acute Category: Medical Code(s): R06.01 - Orthopnea (10) CAD (coronary artery disease) Status: Suspected Qualifiers: Coronary Disease-Associated Artery/Lesion type: [place] artery [place] vs. transplanted heart: [place] heart Associated angina: without angina Qualified Code(s): I25.10 - Atherosclerotic heart disease of [place] coronary artery without angina pectoris Category: Medical Code(s): I25.10 - Atherosclerotic heart disease of [place] coronary artery without angina pectoris (11) Fatty liver Status: Acute Category: Medical Code(s): K76.0 - Fatty (change of) liver, not elsewhere classified (12) Hyperglycemia due to diabetes mellitus Status: Chronic Category: Medical Code(s): E11.65 - Type 2 diabetes mellitus with hyperglycemia (13) Hypercapnia Status: Acute Category: Medical Code(s): R06.89 - Other abnormalities of breathing (14) COPD (chronic obstructive pulmonary disease) Status: Acute Category: Medical Code(s): J44.9 - Chronic obstructive pulmonary disease, unspecified (15) Smoker Status: Chronic Category: Social Hx Code(s): F17.200 - Nicotine dependence, unspecified, uncomplicated (16) Diabetic retinopathy Status: Chronic Category: Medical Code(s): E11.319 - Type 2 diabetes mellitus with unspeci
[2021-02-12 17:39] LABS: POC Glucose,Bedside 246 (70-110)
[2021-02-12 20:44] LABS: POC Glucose,Bedside 253 (70-110)
[2021-02-13] VITALS (21 sets, daily range): BP systolic 141–191; BP diastolic 82–98; PULSE 79–97; RESP 12–26; TEMP 36.7–37.3; O2SAT 94–100; BMI 46.0
[2021-02-13 05:54] LABS: POC Glucose,Bedside 254 (70-110)
[2021-02-13 06:10] LABS: Basophils % 0.1 % (0.1-2.0); Eosinophils # 0.2 K/mm3 (0.0-0.4); Hematocrit 35.5 % (42.0-52.0); Hemoglobin 10.5 g/dL (14.1-18.0); Lymphocytes # 1.8 K/mm3 (0.7-4.5); Lymphocytes % 9.7 % (10-50); Mean Corpuscular HGB Conc 29.6 g/dL (31.8-35.4); Mean Corpuscular Hemoglobin 22.8 pg (27.0-31.2); Mean Platelet Volume 7.9 fl (7.4-10.4); Monocytes # 0.6 K/mm3 (0.1-1.0); Monocytes % 3.4 % (1.7-9.3); Neutrophils # 15.8 K/mm3 (1.8-7.8); Neutrophils % 85.8 % (37.0-80.0); Platelet Count 339 K/mm3 (142-424); Red Blood Count 4.61 M/mm3 (4.60-6.20); Red Cell Distribution Width 16.1 % (11.5-17.5); White Blood Count 18.4 K/mm3 (4.8-10.8)
[2021-02-13 06:12] LABS: MANUAL DIFFERENTIAL MANUAL DIFFERENTIAL (MANUAL DIFF)
[2021-02-13 06:20] LABS: Chloride 115 mmol/L (98-107); Potassium 4.5 mmoL/L (3.5-5.1)
[2021-02-13 06:23] LABS: Anion Gap 15.5 mEq/L (5-15); Blood Urea Nitrogen 37 mg/dl (9-20); Calcium 8.8 mg/dl (8.4-10.2); Carbon Dioxide 30 mmol/L (22.0-30.0); Creatinine Clearance Estimated 61 mL/min (50-200); Estimated Glomerular Filt Rate 54 ml/min (>60); GFR (African American) 65 ML/MIN (>60); Glucose 309 mg/dl (74-100)
[2021-02-13 06:28] LABS: Sodium 156 mmol/L (136-145)
[2021-02-13 07:24] LABS: Hypochromasia 2+; Lymphocytes % 12 % (10-50); Microcytosis 1+; Monocytes % 1 % (2-9); Neutrophils % 85 % (42-76); Platelet Estimate Normal; Total Cells Counted 100
--- NOTE | 2021-02-13 07:31 | HMH.ACPN2 ---
Internal Medicine - PN: Subj *Date: 02/15/21 *Time: 02:07 Interval history: pt still with restraints and has confusion -but sl better Exam Vital signs and Labs for Last 24 Hours: Temp Pulse Resp BP Pulse Ox 99.2 F 93 H 26 H 170/96 H 100 02/13/21 04:00 02/13/21 06:33 02/13/21 06:00 02/13/21 06:00 02/13/21 06:33 Laboratory Results - last 24 hr 02/12/21 05:46: Total Counted 100, Neutrophils % (Manual) 73, Band Neutrophils % 3.0, Lymphocytes % (Manual) 17, Monocytes % (Manual) 7, Platelet Estimate Normal, Hypochromasia 2+, Anisocytosis 1+, Microcytosis 1+ 02/12/21 11:26: POC Glucose 238 H 02/12/21 16:38: POC Glucose 246 H 02/12/21 20:10: POC Glucose 253 H 02/13/21 05:29: POC Glucose 254 H 02/13/21 05:50: WBC 18.4 H, RBC 4.61, Hgb 10.5 L, Hct 35.5 L, MCV 77.0 L, MCH 22.8 L, MCHC 29.6 L, RDW 16.1, Plt Count 339, MPV 7.9, Neut % (Auto) 85.8 H, Lymph % (Auto) 9.7 L, [place] % (Auto) 3.4, Eos % (Auto) 1.0, Baso % (Auto) 0.1, Neut # (Auto) 15.8 H, Lymph # (Auto) 1.8, [place] # (Auto) 0.6, Eos # (Auto) 0.2, Baso # (Auto) 0.0, Total Counted 100, Neutrophils % (Manual) 85 H, Band Neutrophils % 2.0, Lymphocytes % (Manual) 12, Monocytes % (Manual) 1 L, Platelet Estimate Normal, Hypochromasia 2+, Microcytosis 1+ 02/13/21 05:50: Sodium 156 H*, Potassium 4.5, Chloride 115 H, Carbon Dioxide 30, Anion Gap 15.5 H, BUN 37 H D, Creatinine 1.40 H D, Estimated Creat Clear 61, Estimated GFR 54 L, Est GFR ( Amer) 65 D, Glucose 309 H, Calcium 8.8 I & O for Last 24 hours: Intake & Output 02/10/21 02/11/21 02/12/21 02/13/21 11:59 11:59 11:59 11:59 Intake Total 399 / 399 0 / 0 125 / 125 2839 / 2839 Output Total 3535 / 3535 2099 / 2099 2450 / 4550 5200 / 5200 Balance -3136 / -3136 -2099 / -2099 -2325 / -4425 -2361 / -2361 Weight 310 lb 3.046 oz 318 lb 15.437 oz 304 lb - Constitutional no acute distress, obese - *Routine HEENT Exam Head: Present: normocephalic Eye: Present: EOMI, PERRL ENT: Present: mucous membranes dry - *Routine Neck Exam Present: supple. Absent: JVD - *Routine Respiratory Exam Present: decreased breath sounds - *Routine Cardiovascular Exam Present: RRR, murmur - *Routine Abdominal Exam Present: soft - *Routine Extremities Exam Present: edema - *Routine Skin Exam Present: intact - *Routine Neurological Exam Present: altered mental status - Routine Psychiatric Exam Present: unable to assess Assessment and Plan (1) SOB (shortness of breath) Status: Chronic Category: Medical Code(s): R06.02 - Shortness of breath (2) Low back pain Status: Acute Category: Medical Code(s): M54.5 - Low back pain (3) Elevated liver enzymes Status: Acute Category: Medical Code(s): R74.8 - Abnormal levels of other serum enzymes (4) Change in mental status Status: Acute Qualifiers: Altered mental status type: unspecified Qualified Code(s): R41.82 - Altered mental status, unspecified Category: Medical Code(s): R41.82 - Altered mental status, unspecified (5) Congestive heart failure (CHF) Status: Chronic Qualifiers: Heart failure type: diastolic Heart failure chronicity: acute on chronic Qualified Code(s): I50.33 - Acute on chronic diastolic (congestive) heart failure Category: Medical Code(s): I50.9 - Heart failure, unspecified (6) Diabetes mellitus Status: Chronic Qualifiers: Diabetes mellitus type: type 2 Diabetes mellitus assisted insulin use: with terminal make up operator use Diabetes mellitus complication status: without complication Qualified Code(s): E11.9 - Type 2 diabetes mellitus without complications; Z79.4 - [facility] (current) use of insulin Category: Medical Code(s): E11.9 - Type 2 diabetes mellitus without complications (7) HTN (hypertension) Status: Chronic Qualifiers: Hypertension type: primary hypertension Qualified Code(s): I10 - Essential (primary) hypertension Category: Medical Code(s): I10 - Essential (prim
--- NOTE | 2021-02-13 08:00 | PC.NURSE ---
0800 - Restraints removed separately and skin inspected/massaged. Skin intact. No s/s of breakdown.
[2021-02-13 09:32] LABS: Vancomycin,Trough 12.3 ug/mL (5.0-10.0)
[2021-02-13 12:05] LABS: POC Glucose,Bedside 265 (70-110)
[2021-02-13 13:24] LABS: Insulin Level Total 2.3 uIU/mL (2.6-24.9)
--- NOTE | 2021-02-13 13:41 | PC.NURSE ---
Pt weaned to 1 L O2 per nasal cannula per orders from Dr. Hazel, cont pulse ox remains in place for monitoring.
[2021-02-13 13:46] LABS: Vancomycin,Peak 10.4 ug/ml (11-39)
[2021-02-13 16:55] LABS: Vancomycin,Peak 24.9 ug/ml (11-39)
[2021-02-13 17:07] LABS: POC Glucose,Bedside 246 (70-110)
[2021-02-13 19:53] LABS: POC Glucose,Bedside 222 (70-110)
--- NOTE | 2021-02-13 21:59 | PC.NURSE ---
At 1930 restraints were removed and ROM exercise performed on all 4 extremities and skin expected for breakdown. No breakdown evident. pulses in all 4 extremities are present and strong and no discoloration to skin noted. SRNA at bedside for 1:1 observation. no further concerns noted.
[2021-02-14] VITALS (13 sets, daily range): BP systolic 130–185; BP diastolic 69–103; PULSE 77–88; RESP 18–20; TEMP 36.6–37.1; O2SAT 95–99
--- NOTE | 2021-02-14 03:04 | PC.NURSE ---
Patient is alert to self. No complaints of pain or signs of pain. Patients b/p was elevated labetalol and metoprolol given, VSS otherwise. Patient is still extremely agitated and hollers out frequently. Ativan and haloperidol given. Restraints were removed separately Q4 hours and skin was massaged and ROM exercises performed. No signs of skin break down or irritation, or discoloration noted. SRNA is still 1;1. NO further concerns.
--- NOTE | 2021-02-14 05:02 | PC.NURSE ---
weight unable to be obtained due to kicking the foot board and having to remove it.
[2021-02-14 05:32] LABS: POC Glucose,Bedside 227 (70-110)
[2021-02-14 07:40] LABS: Basophils % 0.1 % (0.1-2.0); Eosinophils # 0.2 K/mm3 (0.0-0.4); Eosinophils % 1.8 % (0.1-12.0); Hematocrit 34.1 % (42.0-52.0); Hemoglobin 9.9 g/dL (14.1-18.0); Lymphocytes # 1.2 K/mm3 (0.7-4.5); Lymphocytes % 10.4 % (10-50); Mean Corpuscular HGB Conc 29.1 g/dL (31.8-35.4); Mean Corpuscular Hemoglobin 23.2 pg (27.0-31.2); Mean Corpuscular Volume 79.7 fl (80-94); Mean Platelet Volume 8.5 fl (7.4-10.4); Monocytes # 0.4 K/mm3 (0.1-1.0); Monocytes % 3.7 % (1.7-9.3); Neutrophils # 9.7 K/mm3 (1.8-7.8); Platelet Count 307 K/mm3 (142-424); Red Blood Count 4.28 M/mm3 (4.60-6.20); Red Cell Distribution Width 15.7 % (11.5-17.5); White Blood Count 11.5 K/mm3 (4.8-10.8)
[2021-02-14 07:44] LABS: Chloride 117 mmol/L (98-107)
[2021-02-14 07:47] LABS: Blood Urea Nitrogen 31 mg/dl (9-20); Carbon Dioxide 27 mmol/L (22.0-30.0); Creatinine Clearance Estimated 78 mL/min (50-200); Estimated Glomerular Filt Rate 71 ml/min (>60); GFR (African American) 86 ML/MIN (>60)
[2021-02-14 07:48] LABS: Calcium 8.2 mg/dl (8.4-10.2); Glucose 264 mg/dl (74-100)
[2021-02-14 08:05] LABS: Sodium 153 mmol/L (136-145)
--- NOTE | 2021-02-14 09:47 | HMH.PHACONS ---
- Pharmacy Consult Date: 02/14/21 Time: 09:47 Referring provider: DR. VANEGAS Reason for Consult:: VANCOMYCIN LEVELS Allergies and ADEs:: Allergies Allergy/AdvReac Type Severity Reaction Status Date / Time pregabalin [From Lyrica] AdvReac made skin Verified 01/18/21 10:24 crawl Home Medications:: Home Medications Medication Instructions Recorded Confirmed Type aspirin 81 mg tablet,delayed 81 mg PO DAILY tab 10/27/17 02/03/21 History release pantoprazole 40 mg tablet,delayed 40 mg PO DAILY 10/27/17 02/04/21 History release omega-3 acid ethyl esters 1 gram 4 cap PO DAILY cap 11/08/17 02/03/21 History capsule albuterol sulfate 90 mcg/actuation 2 puff INHALATION Q4-6H PRN 01/18/21 02/03/21 History aerosol inhaler bupropion HCl (smoking deter) 150 150 mg PO BID 01/18/21 02/03/21 History mg tablet,12 hr sustained-release(smoking deterrent) buspirone 30 mg tablet 30 mg PO TID tab 01/18/21 02/03/21 History carvedilol 25 mg tablet 25 mg PO BID 01/18/21 02/03/21 History cholecalciferol (vitamin D3) 1,250 1,250 mcg PO WEEKLY 01/18/21 02/03/21 History mcg (50,000 unit) capsule duloxetine 30 mg capsule,delayed 60 mg PO DAILY cap 01/18/21 02/03/21 History release lorazepam 1 mg tablet 1 mg PO BIDP PRN 01/18/21 02/03/21 History losartan 100 mg tablet 100 mg PO DAILY 01/18/21 02/03/21 History magnesium oxide 400 mg PO DAILY 01/18/21 02/03/21 History pramipexole 1 mg tablet 1 mg PO TID 01/18/21 02/03/21 History quetiapine 300 mg tablet 600 mg PO HS tab 01/18/21 02/03/21 History umeclidinium 62.5 mcg-vilanterol 1 inh INHALATION DAILY 01/18/21 02/03/21 History 25 mcg/actuation powdr for inhalation Atorvastatin Calcium [Lipitor 80mg 80 mg PO DAILY 01/29/21 02/03/21 History Tablet*] Doxazosin Mesylate [Cardura 4mg 2 mg PO BID 01/29/21 02/03/21 History Tab] Gabapentin 800 mg PO TID 01/29/21 02/03/21 History Insulin Aspart [Insulin Aspart 75 unit SQ TIDWMEAL 01/29/21 02/04/21 History Flexpen] Insulin Glargine,Hum.rec.anlog 200 unit SQ HS 01/29/21 02/03/21 History [Toukaelynrosa Rodriguez Solostar] Furosemide [Lasix 80mg tablet] 80 mg PO DAILY 02/03/21 02/03/21 History Metformin HCl [Metformin HCl ER] 500 mg PO QPMWITHMEAL 02/03/21 02/04/21 History Height: 1.73 m Weight: 137.892 kg Laboratory Results:: Laboratory Results - last 24 hr 02/12/21 05:46: Cortisol 26.9 02/12/21 10:21: Total Insulin 2.3 L 02/13/21 05:50: Cortisol 26.2 02/13/21 06:30: Cortisol 35.8 02/13/21 07:00: Cortisol 34.2 02/13/21 11:55: POC Glucose 265 H 02/13/21 13:05: Vancomycin Peak 10.4 L 02/13/21 16:10: Vancomycin Peak 24.9 02/13/21 16:43: POC Glucose 246 H 02/13/21 19:35: POC Glucose 222 H 02/14/21 05:26: POC Glucose 227 H 02/14/21 07:27: WBC 11.5 H D, RBC 4.28 L, Hgb 9.9 L, Hct 34.1 L, MCV 79.7 L, MCH 23.2 L, MCHC 29.1 L, RDW 15.7, Plt Count 307, MPV 8.5, Neut % (Auto) 84.0 H, Lymph % (Auto) 10.4, [place] % (Auto) 3.7, Eos % (Auto) 1.8, Baso % (Auto) 0.1, Neut # (Auto) 9.7 H, Lymph # (Auto) 1.2, [place] # (Auto) 0.4, Eos # (Auto) 0.2, Baso # (Auto) 0.0 02/14/21 07:27: Sodium 153 H*, Potassium 4.0, Chloride 117 H, Carbon Dioxide 27, Anion Gap 13.0, BUN 31 H, Creatinine 1.10 D, Estimated Creat Clear 78, Estimated GFR 71, Est GFR ( Amer) 86 D, Glucose 264 H, Calcium 8.2 L Medical History: Reports:: Anxiety, Atrial Fibrillation, Congestive Heart Failure, Congenital Heart Disease, Coronary Artery Disease, Depression, Diabetes Mellitus Type 2, Gastroesophageal Reflux Disease(GERD), Hyperlipidemia, Hypertension, Renal Disease Denies:: Cancer, Diabetes Mellitus Type 1, MRSA Assessment and Plan (1) SOB (shortness of breath) Status: Chronic Category: Medical Code(s): R06.02 - Shortness of breath (2) Low back pain Status: Acute Category: Medical Code(s): M54.5 - Low back pain (3) Elevated liver enzymes Status: Acute Category: Medical Code(s): R74.8 - Abnormal levels of other serum enzymes
--- NOTE | 2021-02-14 11:36 | HMH.ACPN2 ---
Internal Medicine - PN: Subj *Date: 02/14/21 *Time: 09:20 Interval history: pt laying in bed answers questions, restraints off at this time Exam Vital signs and Labs for Last 24 Hours: Temp Pulse Resp BP Pulse Ox 98.1 F 80 18 164/81 H 99 02/14/21 07:37 02/14/21 08:00 02/14/21 07:37 02/14/21 07:37 02/14/21 07:37 Laboratory Results - last 24 hr 02/12/21 10:21: Total Insulin 2.3 L 02/13/21 05:50: Cortisol 26.2 02/13/21 06:30: Cortisol 35.8 02/13/21 07:00: Cortisol 34.2 02/13/21 11:55: POC Glucose 265 H 02/13/21 13:05: Vancomycin Peak 10.4 L 02/13/21 16:10: Vancomycin Peak 24.9 02/13/21 16:43: POC Glucose 246 H 02/13/21 19:35: POC Glucose 222 H 02/14/21 05:26: POC Glucose 227 H 02/14/21 07:27: WBC 11.5 H D, RBC 4.28 L, Hgb 9.9 L, Hct 34.1 L, MCV 79.7 L, MCH 23.2 L, MCHC 29.1 L, RDW 15.7, Plt Count 307, MPV 8.5, Neut % (Auto) 84.0 H, Lymph % (Auto) 10.4, [place] % (Auto) 3.7, Eos % (Auto) 1.8, Baso % (Auto) 0.1, Neut # (Auto) 9.7 H, Lymph # (Auto) 1.2, [place] # (Auto) 0.4, Eos # (Auto) 0.2, Baso # (Auto) 0.0 02/14/21 07:27: Sodium 153 H*, Potassium 4.0, Chloride 117 H, Carbon Dioxide 27, Anion Gap 13.0, BUN 31 H, Creatinine 1.10 D, Estimated Creat Clear 78, Estimated GFR 71, Est GFR ( Amer) 86 D, Glucose 264 H, Calcium 8.2 L I & O for Last 24 hours: Intake & Output 02/11/21 02/12/21 02/13/21 02/14/21 11:59 11:59 11:59 11:59 Intake Total 0 / 0 125 / 125 2839 / 2839 2942 / 2942 Output Total 2099 2450 / 4550 5200 / 5200 2925 / 2925 Balance -2099 -2325 / -4425 -2361 / -2361 Weight 318 lb 15.437 oz 304 lb Microbiology Reports for the Last 24 Hours: Microbiology 02/11/21 20:43 Blood Blood Culture - Preliminary NO GROWTH AFTER 48 HOURS 02/11/21 20:43 Blood Blood Culture - Preliminary NO GROWTH AFTER 48 HOURS - Constitutional no acute distress, morbidly obese - *Routine HEENT Exam Head: Present: normocephalic Eye: Present: PERRL ENT: Present: mucous membranes moist - *Routine Neck Exam Present: supple. Absent: lymphadenopathy - *Routine Respiratory Exam Present: CTA bilaterally - *Routine Cardiovascular Exam Present: RRR - *Routine Abdominal Exam Present: soft, normoactive bowel sounds. Absent: tenderness - *Routine Extremities Exam Absent: cyanosis, clubbing, edema - *Routine Skin Exam Present: warm. Absent: rash - *Routine Neurological Exam Present: alert, altered mental status - Routine Psychiatric Exam Present: normal affect Assessment and Plan (1) SOB (shortness of breath) Status: Chronic Category: Medical Code(s): R06.02 - Shortness of breath (2) Low back pain Status: Acute Category: Medical Code(s): M54.5 - Low back pain (3) Elevated liver enzymes Status: Acute Category: Medical Code(s): R74.8 - Abnormal levels of other serum enzymes (4) Change in mental status Status: Acute Qualifiers: Altered mental status type: unspecified Qualified Code(s): R41.82 - Altered mental status, unspecified Category: Medical Code(s): R41.82 - Altered mental status, unspecified (5) Congestive heart failure (CHF) Status: Chronic Qualifiers: Heart failure type: diastolic Heart failure chronicity: acute on chronic Qualified Code(s): I50.33 - Acute on chronic diastolic (congestive) heart failure Category: Medical Code(s): I50.9 - Heart failure, unspecified (6) Diabetes mellitus Status: Chronic Qualifiers: Diabetes mellitus type: type 2 Diabetes mellitus nursing home insulin use: with buttermaker continuous churn use Diabetes mellitus complication status: without complication Qualified Code(s): E11.9 - Type 2 diabetes mellitus without complications; Z79.4 - supervisor intermediates (current) use of insulin Category: Medical Code(s): E11.9 - Type 2 diabetes mellitus without complications (7) HTN (hypertension) Status: Chronic Qualifiers: Hy
[2021-02-14 12:01] LABS: POC Glucose,Bedside 251 (70-110)
--- NOTE | 2021-02-14 15:10 | HMH.ACPN ---
Internal Medicine - PN: Subj *Date: 02/14/21 *Time: 15:10 Exam Vital signs and Labs for Last 24 Hours: Temp Pulse Resp BP Pulse Ox 98.6 F 82 18 130/96 H 95 02/14/21 11:55 02/14/21 11:55 02/14/21 11:55 02/14/21 11:55 02/14/21 11:55 Laboratory Results - last 24 hr 02/13/21 05:50: Cortisol 26.2 02/13/21 06:30: Cortisol 35.8 02/13/21 07:00: Cortisol 34.2 02/13/21 16:10: Vancomycin Peak 24.9 02/13/21 16:43: POC Glucose 246 H 02/13/21 19:35: POC Glucose 222 H 02/14/21 05:26: POC Glucose 227 H 02/14/21 07:27: WBC 11.5 H D, RBC 4.28 L, Hgb 9.9 L, Hct 34.1 L, MCV 79.7 L, MCH 23.2 L, MCHC 29.1 L, RDW 15.7, Plt Count 307, MPV 8.5, Neut % (Auto) 84.0 H, Lymph % (Auto) 10.4, [place] % (Auto) 3.7, Eos % (Auto) 1.8, Baso % (Auto) 0.1, Neut # (Auto) 9.7 H, Lymph # (Auto) 1.2, [place] # (Auto) 0.4, Eos # (Auto) 0.2, Baso # (Auto) 0.0 02/14/21 07:27: Sodium 153 H*, Potassium 4.0, Chloride 117 H, Carbon Dioxide 27, Anion Gap 13.0, BUN 31 H, Creatinine 1.10 D, Estimated Creat Clear 78, Estimated GFR 71, Est GFR ( Amer) 86 D, Glucose 264 H, Calcium 8.2 L 02/14/21 11:55: POC Glucose 251 H I & O for Last 24 hours: Intake & Output 02/11/21 02/12/21 02/13/21 02/14/21 23:59 23:59 23:59 23:59 Intake Total 1825 / 1825 2508 / 2508 1573 / 1573 Output Total 2099 / 2099 3750 / 3750 4025 / 4025 700 / 700 Balance -2100 / -2100 -1925 / -1925 -1517 / -1517 873 / 873 Weight 144.68 kg 137.892 kg Microbiology Reports for the Last 24 Hours: Microbiology 02/11/21 20:43 Blood Blood Culture - Preliminary NO GROWTH AFTER 48 HOURS 02/11/21 20:43 Blood Blood Culture - Preliminary NO GROWTH AFTER 48 HOURS Assessment and Plan (1) SOB (shortness of breath) Status: Chronic Category: Medical Code(s): R06.02 - Shortness of breath (2) Low back pain Status: Acute Category: Medical Code(s): M54.5 - Low back pain (3) Elevated liver enzymes Status: Acute Category: Medical Code(s): R74.8 - Abnormal levels of other serum enzymes (4) Change in mental status Status: Acute Qualifiers: Altered mental status type: unspecified Qualified Code(s): R41.82 - Altered mental status, unspecified Category: Medical Code(s): R41.82 - Altered mental status, unspecified (5) Congestive heart failure (CHF) Status: Chronic Qualifiers: Heart failure type: diastolic Heart failure chronicity: acute on chronic Qualified Code(s): I50.33 - Acute on chronic diastolic (congestive) heart failure Category: Medical Code(s): I50.9 - Heart failure, unspecified (6) Diabetes mellitus Status: Chronic Qualifiers: Diabetes mellitus type: type 2 Diabetes mellitus exterminator insulin use: with exterminator use Diabetes mellitus complication status: without complication Qualified Code(s): E11.9 - Type 2 diabetes mellitus without complications; Z79.4 - custodial (current) use of insulin Category: Medical Code(s): E11.9 - Type 2 diabetes mellitus without complications (7) HTN (hypertension) Status: Chronic Qualifiers: Hypertension type: primary hypertension Qualified Code(s): I10 - Essential (primary) hypertension Category: Medical Code(s): I10 - Essential (primary) hypertension (8) Hyperlipidemia Status: Chronic Qualifiers: Hyperlipidemia type: mixed hyperlipidemia Qualified Code(s): E78.2 - Mixed hyperlipidemia Category: Medical Code(s): E78.5 - Hyperlipidemia, unspecified (9) Orthopnea Status: Acute Category: Medical Code(s): R06.01 - Orthopnea (10) CAD (coronary artery disease) Status: Suspected Qualifiers: Coronary Disease-Associated Artery/Lesion type: [place] artery [place] vs. transplanted heart: [place] heart Associated angina: without angina Qualified Code(s): I25.10 - Atherosclerotic heart disease of [place] coronary artery without angina pectoris Category: Medical Code(s)
--- NOTE | 2021-02-14 15:16 | HMH.SLDYSPHA ---
Speech & Language Evaluation Speech/Language Dysphagia Evaluation Start: 02/14/21 15:06 Freq: ONCE Status: Active Protocol: Document 02/14/21 15:06 EFREN (Rec: 02/14/21 15:16 EFREN [id number]) Dysphagia Assess/Goals/Plan Assessment Date of Evaluation: 02/14/21 Evaluation Type Initial Certification Assessment/Problems Dysphagia Does Patient Qualify for Service No Qualify/Failure Comment Based on results of dysphagia assessment, skilled speech therapy services are not warranted at this time. Recommendations PHYSICIAN CERTIFICATION: The specified therapy services are required, authorized, and reviewed every 30 days. Diet Recommendations Normal Liquid Type Recommendations Normal/Thin SL Swallow Guidelines Assist w/all meals,Alt bite w/ sip thru meal,Standard Aspiration Prec. Dysphagia Swallow Precautions/Strategies Sitting Upright (90 deg),Small Bites and Sips,Alternate Liquids/Solids Place Food on Either side of Mouth Plan Pt/Guardian verbally ack understanding Yes of dx/prognosis/goals Pt/Guardian verbally ack understanding Yes of/consent to tx prog G -code Required No Education Instructions provided Discussed results of dysphagia assessment with patient, nursing, and family. Pt/Caregiver able to recall information Able to recall/restate, Reinforcement needed Reinforcement needed Yes General Information General Current Food Consistancy NPO Oxygen Status Room Air Facial Symmetry Symmetrical Patient Orientation Person Ability to Follow Directions Fair Communication Ability No Impairment Dysphagia:Food Presentation Evaluation Food Type Pureed,Mechanical Soft,Regular ,Liquid,Pudding Normal/Thin Liquid Response Coughing after swallow Pudding Consistency Liquid Response Residual on tongue Dysphagia Evaluation Pureed Food Residual on tongue Behavior Response Dysphagia Evaluation Mechanical Soft Residual on tongue Food Behavior Response Dysphagia Evaluation Regular Food Residual on tongue Behavior Response Dysphagia Evaluation Summary Clinical swallow evaluation completed to analyze and asses oropharyngeal swallow. Thin liquids, puree, pudding, mechanical soft, and regular textures were
--- NOTE | 2021-02-14 16:38 | PC.NURSE ---
PT IS RESTING IN BED. RESTRAINTS HAVE BEEN OFF SINCE 0830 THIS MORNING HOWEVER PT STILL REQUIRES 1:1 DUE TO SAFETY CONCERNS. PT CONTINUES TO HAVE PERIODS OF BEING VERY UNCOOPERATIVE BUT HAS NOT BEEN COMBATIVE. ALERT TO SELF ONLY. SPEECH IS MORE CLEAR THIS SHIFT AND PT HAS BEEN ANSWERING SIMPLE YES OR NO QUESTIONS. TOLERATED SITTING UP IN THE RECLINER FOR A FEW HOURS THIS AFTERNOON. PT WAS A 2 MAX ASSIST TO GET OOB AND REQUIRED THE LIFT TO GET BACK TO BED LATER IN THE AFTERNOON DUE TO PT NOT WANTING TO ATTEMPT TO STAND. PT TOLERATED SWALLOW EVAL WELL TODAY AND HAS TOLERATED DRINKING WATER /COFFEE/DIET PEPSI. PT TOLERATED EATING BUT DID NEED SOME ASSISTANCE WITH FEEDING. LUNG SOUNDS CLEAR. ABDOMEN SOFT/OBESE WITH ACTIVE BOWEL SOUNDS. PT HAS HAD 3 BOWEL MOVEMENTS THIS SHIFT. SKIN DRY/JUNIOR. SCATTERED BRUISING. O2 SATURATION MAINTAINED >90% ON ROOM AIR. WILL CONTINUE TO MONITOR.
[2021-02-14 17:25] LABS: POC Glucose,Bedside 220 (70-110)
[2021-02-14 20:33] LABS: POC Glucose,Bedside 203 (70-110)
--- NOTE | 2021-02-14 23:03 | PC.NURSE ---
Patient complained of back pain called Dr. Mathis called at [phone]. gave orders to switch tylenol from suppository to oral.
[2021-02-15] VITALS (7 sets, daily range): BP systolic 119–140; BP diastolic 52–72; PULSE 78–95; RESP 18; TEMP 36.6–36.8; O2SAT 95–100
--- NOTE | 2021-02-15 02:47 | PC.NURSE ---
Patient is A&Ox1. Complained of some back pain and tylenol was given. Patient has been more calm this shift but still has periods of being agitated, uncooperative/ belligerent. Patients speech is more clear and he can answer yes or no questions and follow commands better. Barnes is still in place. Blood sugars have been elevated and covered with sliding scale insulin. VSS. Did apply 1L nc onto patient when sleeping but when he is awake tolerates room air well. No further concerns.
[2021-02-15 05:02] LABS: POC Glucose,Bedside 341 (70-110)
[2021-02-15 06:19] LABS: Basophils % 0.1 % (0.1-2.0); Eosinophils # 0.2 K/mm3 (0.0-0.4); Hematocrit 33.5 % (42.0-52.0); Hemoglobin 9.5 g/dL (14.1-18.0); Lymphocytes # 1.6 K/mm3 (0.7-4.5); Lymphocytes % 15.7 % (10-50); Mean Corpuscular HGB Conc 28.3 g/dL (31.8-35.4); Mean Corpuscular Hemoglobin 22.9 pg (27.0-31.2); Mean Corpuscular Volume 80.9 fl (80-94); Monocytes # 0.3 K/mm3 (0.1-1.0); Neutrophils # 8.2 K/mm3 (1.8-7.8); Neutrophils % 79.2 % (37.0-80.0); Platelet Count 298 K/mm3 (142-424); Red Blood Count 4.14 M/mm3 (4.60-6.20); Red Cell Distribution Width 15.9 % (11.5-17.5); White Blood Count 10.3 K/mm3 (4.8-10.8)
[2021-02-15 06:24] LABS: Chloride 108 mmol/L (98-107); Potassium 3.9 mmoL/L (3.5-5.1); Sodium 143 mmol/L (136-145)
[2021-02-15 06:27] LABS: Anion Gap 13.9 mEq/L (5-15); Blood Urea Nitrogen 27 mg/dl (9-20); Carbon Dioxide 25 mmol/L (22.0-30.0); Creatinine Clearance Estimated 71 mL/min (50-200); Estimated Glomerular Filt Rate 64 ml/min (>60); GFR (African American) 78 ML/MIN (>60)
[2021-02-15 06:28] LABS: Calcium 7.7 mg/dl (8.4-10.2); Glucose 296 mg/dl (74-100)
--- NOTE | 2021-02-15 08:52 | HMH.ACPN2 ---
Internal Medicine - PN: Subj *Date: 02/16/21 *Time: 02:27 Interval history: more alert -ox2- sitting up Exam Vital signs and Labs for Last 24 Hours: Temp Pulse Resp BP Pulse Ox 98.1 F 95 H 18 121/52 L 97 02/15/21 08:00 02/15/21 08:00 02/15/21 08:00 02/15/21 08:00 02/15/21 08:00 Laboratory Results - last 24 hr 02/13/21 05:50: Cortisol 26.2 02/13/21 06:30: Cortisol 35.8 02/13/21 07:00: Cortisol 34.2 02/14/21 11:55: POC Glucose 251 H 02/14/21 17:16: POC Glucose 220 H 02/14/21 20:16: POC Glucose 203 H 02/15/21 04:54: POC Glucose 341 H* 02/15/21 05:54: WBC 10.3, RBC 4.14 L, Hgb 9.5 L, Hct 33.5 L, MCV 80.9, MCH 22.9 L, MCHC 28.3 L, RDW 15.9, Plt Count 298, MPV 8.0, Neut % (Auto) 79.2, Lymph % (Auto) 15.7, [place] % (Auto) 3.0, Eos % (Auto) 2.0, Baso % (Auto) 0.1, Neut # (Auto) 8.2 H, Lymph # (Auto) 1.6, [place] # (Auto) 0.3, Eos # (Auto) 0.2, Baso # (Auto) 0.0 02/15/21 05:54: Sodium 143, Potassium 3.9, Chloride 108 H, Carbon Dioxide 25, Anion Gap 13.9, BUN 27 H, Creatinine 1.20, Estimated Creat Clear 71, Estimated GFR 64, Est GFR ( Amer) 78, Glucose 296 H, Calcium 7.7 L I & O for Last 24 hours: Intake & Output 02/12/21 02/13/21 02/14/21 02/15/21 11:59 11:59 11:59 11:59 Intake Total 125 / 125 2839 / 2839 2942 / 2942 4097 / 4097 Output Total 2450 / 4550 5200 / 5200 2925 / 2925 1550 / 1550 Balance -2325 / -4425 -2361 / -2361 2547 / 2547 Weight 304 lb - Constitutional no acute distress, obese - *Routine HEENT Exam Head: Present: normocephalic Eye: Present: EOMI, PERRL ENT: Present: mucous membranes dry - *Routine Neck Exam Absent: JVD - *Routine Respiratory Exam Present: decreased breath sounds - *Routine Cardiovascular Exam Present: RRR - *Routine Abdominal Exam Present: soft - *Routine Extremities Exam Absent: calf tenderness - *Routine Skin Exam Absent: erythema - *Routine Neurological Exam Present: CN II-XII intact. Absent: motor deficit - Routine Psychiatric Exam Present: unable to assess. Absent: good insight Assessment and Plan (1) SOB (shortness of breath) Status: Chronic Category: Medical Code(s): R06.02 - Shortness of breath (2) Low back pain Status: Acute Category: Medical Code(s): M54.5 - Low back pain (3) Elevated liver enzymes Status: Acute Category: Medical Code(s): R74.8 - Abnormal levels of other serum enzymes (4) Change in mental status Status: Acute Qualifiers: Altered mental status type: unspecified Qualified Code(s): R41.82 - Altered mental status, unspecified Category: Medical Code(s): R41.82 - Altered mental status, unspecified (5) Congestive heart failure (CHF) Status: Chronic Qualifiers: Heart failure type: diastolic Heart failure chronicity: acute on chronic Qualified Code(s): I50.33 - Acute on chronic diastolic (congestive) heart failure Category: Medical Code(s): I50.9 - Heart failure, unspecified (6) Diabetes mellitus Status: Chronic Qualifiers: Diabetes mellitus type: type 2 Diabetes mellitus intermediate school teacher insulin use: with intermediate school teacher use Diabetes mellitus complication status: without complication Qualified Code(s): E11.9 - Type 2 diabetes mellitus without complications; Z79.4 - [facility] (current) use of insulin Category: Medical Code(s): E11.9 - Type 2 diabetes mellitus without complications (7) HTN (hypertension) Status: Chronic Qualifiers: Hypertension type: primary hypertension Qualified Code(s): I10 - Essential (primary) hypertension Category: Medical Code(s): I10 - Essential (primary) hypertension (8) Hyperlipidemia Status: Chronic Qualifiers: Hyperlipidemia type: mixed hyperlipidemia Qualified Code(s): E78.2 - Mixed hyperlipidemia Category: Medical Code(s): E78.5 - Hyperlipidemia, unspecified (9) Orthopnea Status: Acute Category: Medical Code(s): R06.01 - Orthopnea (10) CAD (coronary artery disease)
[2021-02-15 12:58] LABS: POC Glucose,Bedside 285 (70-110)
--- NOTE | 2021-02-15 15:30 | HMH.OTEV ---
OT Inpatient Evaluation Rehab OT IP Evaluation Start: 02/15/21 13:21 Freq: ONCE Status: Complete Protocol: Document 02/15/21 15:23 [facility] (Rec: 02/15/21 15:29 [facility] [id number]) Rehab OT IP Assessment Subjective History Pt oriented x 2 on arrival. Pt agreeable to engage in therapy evaluation. Pt was admitted on 02/03/21 through ER due to low back pain and change in mental status. Pt has a past medical history of Anxiety, Atrial Fibrillation, Congestive Heart Failure, Coronary Artery Disease, Depression, Diabetes Mellitus Type 2, Gastroesophageal Reflux Disease(GERD), Hyperlipidemia, Hypertension, Renal Disease. Pt reports prior to being in hospital he lived at home with his . Pt claims he stayed in a wheelchair most of the time, but was able to use a walker during short transfers. Pt reports his assisted him with bathing and dressing. He was dependent upon his for completion of all IADLs. Subjective I am not going to rehab. Objective Patient Orientation Person,Birthday Upper Extremity Gross ROM WFL Transfer Training Sit/Stand Transfer Assist Level Moderate x 2 (50% assist) Chair Transfer Ability Moderate x 2 (50% assist) Chair Transfer Technique Sit to/from Ambulatory Chair Transfer Assistive Devices Rolling Walker Rehab OT IP prob,goals,plan Problems Date of Evaluation: 02/15/21 OT IP Problems Bed Mobility,Transfers,Gait, Balance,Self care,Safety Rehab Potential Rehab Potential Good Equipment Needs Assistive Devices Rolling / Wheeled Walker Plan OT intervention Plan Bed Mobility,Transfers,Gait, Balance,Self care,Safety, Therapeutic Exercise OT Plan Frequency BID Duration LOS Discharge Goals Bed Mobility Ability Standby Assistance Sit to Stand Chair Transfer Ability Minimal x 1 (25% assist) Chair Transfer Ability Minimal x 1 (25% assist) Chair Transfer Technique Sit
[2021-02-15 18:12] LABS: POC Glucose,Bedside 314 (70-110)
--- NOTE | 2021-02-15 19:42 | PC.NURSE ---
PT IS RESTING IN BED. RECEIVED TYLENOL FOR LEG DISCOMFORT. PT HAS BEEN MORE ALERT THIS SHIFT AND HAS BEEN COOPERATIVE WITH CARE. PT HAS REMAINED 1:1 THIS SHIFT DUE TO BEING A FALL RISK. PT/OT WORKED WITH PT A SUGGESTED PT WENT SOMEWHERE FOR REHAB WHICH PT WAS NOT HAPPY ABOUT. LUNG SOUNDS DIMINISHED. ABDOMEN SOFT/OBESE WITH ACTIVE BOWEL SOUNDS. EATING AND DRINKING WELL. PT HAS AMBULATED WITH 2 ASSIST TO THE BATHROOM (VERY UNSTEADY GAIT) VSS. WILL CONTINUE TO MONITOR.
[2021-02-15 22:55] LABS: POC Glucose,Bedside 358 (70-110)
[2021-02-16 05:00] VITALS: BMI 45.4
[2021-02-16 05:32] LABS: POC Glucose,Bedside 283 (70-110)
--- NOTE | 2021-02-16 05:51 | PC.NURSE ---
Patient had an uneventful night this shift, cooperative and appropriate behavior. No acute distress noted this shift, call light within reach, bed at lowest level for safety.
[2021-02-16 06:18] LABS: Basophils % 0.1 % (0.1-2.0); Eosinophils # 0.2 K/mm3 (0.0-0.4); Eosinophils % 1.6 % (0.1-12.0); Hematocrit 32.6 % (42.0-52.0); Hemoglobin 9.5 g/dL (14.1-18.0); Lymphocytes # 1.3 K/mm3 (0.7-4.5); Mean Corpuscular HGB Conc 29.1 g/dL (31.8-35.4); Mean Corpuscular Hemoglobin 23.1 pg (27.0-31.2); Mean Corpuscular Volume 79.6 fl (80-94); Mean Platelet Volume 8.7 fl (7.4-10.4); Monocytes # 0.4 K/mm3 (0.1-1.0); Monocytes % 3.7 % (1.7-9.3); Neutrophils # 8.3 K/mm3 (1.8-7.8); Neutrophils % 81.5 % (37.0-80.0); Platelet Count 309 K/mm3 (142-424); Red Cell Distribution Width 16.1 % (11.5-17.5); White Blood Count 10.2 K/mm3 (4.8-10.8)
[2021-02-16 06:35] LABS: Chloride 105 mmol/L (98-107)
[2021-02-16 06:36] LABS: Potassium 3.7 mmoL/L (3.5-5.1); Sodium 140 mmol/L (136-145)
[2021-02-16 06:39] LABS: Anion Gap 14.7 mEq/L (5-15); Blood Urea Nitrogen 21 mg/dl (9-20); Carbon Dioxide 24 mmol/L (22.0-30.0); Creatinine Clearance Estimated 78 mL/min (50-200); Estimated Glomerular Filt Rate 71 ml/min (>60); GFR (African American) 86 ML/MIN (>60); Glucose 291 mg/dl (74-100)
[2021-02-16 07:57] VITALS: BP 162/84; PULSE 89; RESP 20; TEMP 37.1; O2SAT 97
[2021-02-16 08:00] VITALS: O2SAT 98
--- NOTE | 2021-02-16 09:22 | SW/DCPLANNER ---
Addendum entered by Rhea Carter 02/16/21 13:09: [facility] has stated that patient received new tubing for CPAP device in November and is NOT eligible for new tubing till next month. Quynh stated that patient usually does come in and meat pickler new tubing. Patient information/order will also be faxed for a rolling walker per patient request. Patient may discharge home later today. [facility] stated that walker will be delivered to patients home tomorrow. Original Note: I spoke with this patient regarding discharge plans. Patient stated that his plan is to return home with his and return to [facility] outpatient for PT. I explained options of placement vs home health and patient remains adamant to return to [facility] outpatient. Patient stated that he has a walker, wheelchair and CPAP from [facility]. I will follow up with [facility] regarding equipment. Patient could discharge home later today.
--- NOTE | 2021-02-16 10:16 | HMH.PTEV ---
Physical Therapy Evaluation Rehab PT IP Evaluation Start: 02/15/21 13:20 Freq: ONCE Status: Active Protocol: Document 02/16/21 08:45 PHORNE (Rec: 02/16/21 10:16 PHORNE [id number]) Subjective/History History History Pt is 51 year old male who presented to [facility] ER for low back pain radiating into right hip. Subjective Subjective Pt reports feeling well this morning and was willing to walk in his room. Pt states he lives with and children in 2 level home. Pt states he does not have to go up stairs and uses a rolling walker when walking at home. When leaving home, pt uses w/c. Eval completed by ABE Quiroga . Rehab PT IP Eval Objective Appearance Patient Behavior Appropriate,Cooperative Patient Orientation Place,Name,Birthday Difficulty following instructions none Speech Pattern Clear,Appropriate,Coherent Ambulation Patient Able to Ambulate Yes Ambulation Observation IP General Gait Pattern Observation Wide Based Gait Ambulation Distance (feet) 20 Ambulation Assistive Device Rolling Walker Ambulation Ability Contact Guard/Hand Hold Balance Ability to Arise Able, uses arms to help Sitting Balance Steady, safe Standing Balance Steady, wide stance Dynamic Sitting Balance Ability Good Dynamic Standing Balance Ability Good Transfers Bed Transfer Ability Contact Guard/Hand Hold Sit to Stand Bed Transfer Ability Contact Guard/Hand Hold ROM All Extremities PT ROM Status WFL MMT All Extremities PT MMT WFL Rehab PT IP prob,goals,plan Problems Date of Evaluation: 02/16/21 PT IP Problems Gait,Safety Rehab Potential Rehab Potential Good Equipment Needs Assistive Devices Rolling / Wheeled Walker Plan PT Intervention Plan Gait,Safety PT Plan Frequency BID Duration LOS Discharge Goals Bed Transfer Ability Contact Guard/Hand Hold Sit to Stand Chair Transfer Ability Contact Guard/Hand Hold Ambulation Assistive Device Rolling Walker Ambulation Distance (feet) 40 Discharge Plan PT Discharge Plan Pt would be safe to d/c home with family when medically stable. Pt is ambulating in
[2021-02-16 11:55] LABS: POC Glucose,Bedside 318 (70-110)
--- NOTE | 2021-02-16 13:09 | PC.NURSE ---
PT WILL NEED A ROLLING WALKER RATHER THAN A CANE TO ASSIST WITH MOBILITY.
--- NOTE | 2021-02-16 13:32 | HMH.PULMPN ---
Internal Medicine - PN: Subj *Date: 02/16/21 *Time: 13:32 Interval history: No acute respiratory events overnight. Patient remains on room air. Exam - Constitutional Constitutional:: Present: no acute distress, comfortable - HENMT Exam HENMT: Present: normocephalic, atraumatic - Eye Exam Eyes:: Present: normal appearance both eyes and related structures - Neck Exam Neck:: Present: normal visual inspection - Respiratory Exam Respiratory:: Present: able to speak in complete sentences, normal breath sounds. Absent: crackles, wheezing - Cardiovascular Exam Cardiac:: Present: regular rhythm - GI Exam GI:: Present: soft, obese - Skin Exam Skin: Present: warm, rash - Neurological Exam Neurological: Present: alert, awake, normal cognition Assessment and Plan (1) SOB (shortness of breath) Status: Chronic Category: Medical Code(s): R06.02 - Shortness of breath (2) Low back pain Status: Acute Category: Medical Code(s): M54.5 - Low back pain (3) Elevated liver enzymes Status: Acute Category: Medical Code(s): R74.8 - Abnormal levels of other serum enzymes (4) Change in mental status Status: Acute Qualifiers: Altered mental status type: unspecified Qualified Code(s): R41.82 - Altered mental status, unspecified Category: Medical Code(s): R41.82 - Altered mental status, unspecified (5) Congestive heart failure (CHF) Status: Chronic Qualifiers: Heart failure type: diastolic Heart failure chronicity: acute on chronic Qualified Code(s): I50.33 - Acute on chronic diastolic (congestive) heart failure Category: Medical Code(s): I50.9 - Heart failure, unspecified (6) Diabetes mellitus Status: Chronic Qualifiers: Diabetes mellitus type: type 2 Diabetes mellitus [facility] insulin use: with ad terminal makeup operator use Diabetes mellitus complication status: without complication Qualified Code(s): E11.9 - Type 2 diabetes mellitus without complications; Z79.4 - salvage determiner (current) use of insulin Category: Medical Code(s): E11.9 - Type 2 diabetes mellitus without complications (7) HTN (hypertension) Status: Chronic Qualifiers: Hypertension type: primary hypertension Qualified Code(s): I10 - Essential (primary) hypertension Category: Medical Code(s): I10 - Essential (primary) hypertension (8) Hyperlipidemia Status: Chronic Qualifiers: Hyperlipidemia type: mixed hyperlipidemia Qualified Code(s): E78.2 - Mixed hyperlipidemia Category: Medical Code(s): E78.5 - Hyperlipidemia, unspecified (9) Orthopnea Status: Acute Category: Medical Code(s): R06.01 - Orthopnea (10) CAD (coronary artery disease) Status: Suspected Qualifiers: Coronary Disease-Associated Artery/Lesion type: [place] artery [place] vs. transplanted heart: [place] heart Associated angina: without angina Qualified Code(s): I25.10 - Atherosclerotic heart disease of [place] coronary artery without angina pectoris Category: Medical Code(s): I25.10 - Atherosclerotic heart disease of [place] coronary artery without angina pectoris (11) Fatty liver Status: Acute Category: Medical Code(s): K76.0 - Fatty (change of) liver, not elsewhere classified (12) Hyperglycemia due to diabetes mellitus Status: Chronic Category: Medical Code(s): E11.65 - Type 2 diabetes mellitus with hyperglycemia (13) Hypercapnia Status: Acute Category: Medical Code(s): R06.89 - Other abnormalities of breathing (14) COPD (chronic obstructive pulmonary disease) Status: Acute Category: Medical Code(s): J44.9 - Chronic obstructive pulmonary disease, unspecified (15) Smoker Status: Chronic Category: Social Hx Code(s): F17.200 - Nicotine dependence, unspecified, uncomplicated (16) Diabetic retinopathy Status: Chronic Category: Medical Code(s): E11.319 - Type 2 diabetes mellitus with unspecified diabetic retinopathy without macular edema (17)
--- NOTE | 2021-02-16 13:57 | HMH.DCSUM ---
General - General Admission date:: 02/03/21 Discharge date: 02/16/21 HPI HPI: 50-year-old male patient presented to the [facility] emergency department via EMS with complaints of lower back pain radiating into right hip. Family also reports yesterday he was taking pain medications and became extremely sleepy. Family also reports he has a longstanding history of sleep apnea and refuses to wear his CPAP machine at night and he falls asleep very easily during the day. He denies any fever/chills/body aches or nausea/vomiting/diarrhea, has taste and smell. He was in the emergency department yesterday complaining of lower back pain also. In the emergency department blood glucose was 338, he does have a history of noncompliance with his diabetes regimen, AST 514, ALT [address] revealed no acute findings L-spine CT revealed minimal bulging disks L4-L5 02/03/21 CXR: IMPRESSION: Cardiomegaly with patchy infiltrate versus atelectatic change in the right perihilar region and right lung base Dictated by: Mj Mcneil MD 50-year-old male patient sitting up on the side of the bed BiPAP in place 16/645% O2 oxygen saturations 94%. He does report lower back pain radiating into bilateral thighs, denies any lower back injuries Hospital Course Hospital Course: 50-year-old morbidly obese male cancer diagnosis of sleep apnea noncompliant with his CPAP at home, significant smoking history, on inhalers at baseline presented hospital with back pain Patient on presentation found to have a pulmonary infiltrate for which he had completed treatment for his pneumonia. His sputum bacterial stain did not grow any organisms, he has grown yeast. Along with a sleep apnea and hypercarbic respiratory failure patient prominent issues on admission include continued agitation. Head CT revealed no acute findings L-spine CT revealed minimal bulging disks L4-L5 02/03/21 CXR: IMPRESSION: Cardiomegaly with patchy infiltrate versus atelectatic change in the right perihilar region and right lung base Dictated by: Mj Mcneil MD 02/04/21 Abd/Pelvis CT: FINDINGS: LOWER THORAX: Atelectatic change right lung base. ABDOMEN & PELVIS: Hepatomegaly with fatty liver. No focal liver lesion evident. Once again part of the anterior abdominal wall is not included in the images this time along the left anterior lateral abdominal wall. No free air is evident. Mild splenomegaly at 14 cm. The adrenal glands and pancreas have an unremarkable appearance. Two small right renal calculi suspected at 2 and 3 mm. No ureteral calculi. There are few scattered small retroperitoneal and pelvic lymph nodes. No hydronephrosis. Previously noted haziness of the right kidney is no longer apparent. There is a mild amount of retained colonic feces. No evidence of appendicitis. Previously noted air within the right lower quadrant represented air within the appendix. Part of the descending colon is cut off on the images in the left upper abdominal region. Of the visualized colon, no evidence of diverticulitis. No free air apparent. Urinary bladder is distended. There are few small nodes in the periaortic region nonspecific. Mildly prominent node is present in the central mesenteric region 2.6 x 1.6 cm no acute bony findings. IMPRESSION: 1. Somewhat limited study due to patient's body habitus, motion artifact, and inability to cover the entire abdomen in the field of view. 2. No intestinal obstruction or free air. Previously noted serpiginous air density in the right lower quadrant represented air-filled appendix. No evidence of appendicitis. 3. Hepatosplenomegaly with diffuse fatty liver 4. Mildly prominent lymph nodes in the mesenteries retroperitoneum and pelvic region. These are nonspecific and not significantly changed. Dictated by: Mj Mcneil MD 02/04/21 Abd US: FINDINGS: PANCREAS: Pancreas is not well
--- NOTE | 2021-02-16 15:10 | HMH.PHAINT ---
MEDICATION DISCHARGE COUNSELING COMPLETE. PATIENT HAD NO QUESTIONS. I TALKED TO PATIENT ABOUT DISCONTINUATION OF LORAZEPAM.
--- NOTE | 2021-02-16 15:27 | PC.NURSE ---
PT HAS BEEN ALERT T/O THE SHIFT. VERY ANXIOUS TO BE DISCHARGED. PT HAS BEEN AMBULATING TO THE BATHROOM WITH WALKER. LUNG SOUNDS DIMINISHED. ABDOMEN SOFT/NON TENDER WITH ACTIVE BOWEL SOUNDS. AREA NOTED TO THE BUTTOCKS. EATING AND DRINKING WELL. BOWEL MOVEMENT THIS SHIFT. WILL CONTINUE TO MONITOR.
== END 2021-02-16 15:33 | disposition home or self-care (01) | DRG 291 ==
LOC: ER 15:40 → 2ND 16:33
PROVIDERS: Family Medicine; Internal Medicine Adolescent Medicine; Internal Medicine Pulmonary Disease; Nurse Practitioner Family; Admitting Provider Emergency Medicine; Emergency Provider Internal Medicine; PCP Emergency Medicine; Visit Provider Emergency Medicine
DX: I11.0 Hypertensive heart disease with heart failure (principal); J96.02 Acute respiratory failure with hypercapnia; J18.9 Pneumonia, unspecified organism; Z20.822 Contact with and (suspected) exposure to COVID-19; Z68.42 Body mass index [BMI] 45.0-49.9, adult; J44.0 Chronic obstructive pulmonary disease with (acute) lower respiratory infection; I50.33 Acute on chronic diastolic (congestive) heart failure; J96.01 Acute respiratory failure with hypoxia; E11.319 Type 2 diabetes mellitus with unspecified diabetic retinopathy without macular edema; Z79.4 Long term (current) use of insulin; E66.01 Morbid (severe) obesity due to excess calories; F41.9 Anxiety disorder, unspecified; Z87.891 Personal history of nicotine dependence; M54.5 Low back pain; G89.29 Other chronic pain; F32.9 Major depressive disorder, single episode, unspecified; K21.9 Gastro-esophageal reflux disease without esophagitis; E78.5 Hyperlipidemia, unspecified; I25.10 Atherosclerotic heart disease of native coronary artery without angina pectoris; E11.649 Type 2 diabetes mellitus with hypoglycemia without coma; R41.0 Disorientation, unspecified; R74.8 Abnormal levels of other serum enzymes; G47.33 Obstructive sleep apnea (adult) (pediatric); K76.0 Fatty (change of) liver, not elsewhere classified; Z91.19 Patient's noncompliance with other medical treatment and regimen; Z78.1 Physical restraint status; E11.65 Type 2 diabetes mellitus with hyperglycemia
CPT/HCPCS: 31500; 94002; 94003 ×2; 36415; 70450; 71045; 72131; 74176; 74177; 76700; 80048; 80053; 80202; 80305; 81001; 82009; 82140; 82533; 82803; 82947; 82962; 83525; 83605; 83880; 84443; 84484; 85007; 85014; 85018; 85025; 85048; 85049; 87040; 87070; 87077; 87205; 92610; 93005; 94640; 94660; 94761; 96365; 96374; 96375; 97162; 97166; 97530; 99283; 99284; J1956; J2405; J2704; J3370; Q9967; U0003

== ENCOUNTER 2021-03-05 20:39 | Emergency (ER) | payer MEDICARE, MEDICAID, SELFPAY ==
[2021-03-05 20:40] VITALS: BP 152/76; PULSE 88; RESP 20; TEMP 36.4; O2SAT 97; BMI 48.6
[2021-03-05 23:15] VITALS: BP 152/76; PULSE 88; O2SAT 96
[2021-03-05 23:24] LABS: Microscopic, Urine URINE MICROSCOPIC (MICROSCOPIC)
[2021-03-05 23:26] LABS: Appearance,Urine CLEAR (Clear); Bilirubin,Urine Negative (Negative); Blood, Urine Negative (Negative); Color,Urine YELLOW (Yellow); Glucose,Urine (UA) 2+ (Negative); Ketones,Urine Negative (Negative); Leukocyte Esterase,Urine Negative (Negative); Nitrate,Urine Negative (Negative); Protein,Urine 1+ (Negative); Specific Gravity, Urine 1.025 (1.005-1.030); Urobilinogen,Urine 0.2 EU/dl (0.2)
[2021-03-05 23:35] VITALS: BP 120/63; PULSE 86; O2SAT 97
[2021-03-05 23:45] LABS: Bacteria,Urine Trace /lpf; RBC,Urine Occasional #/hpf (0-3); Sperm,Urine 1+ /lpf; Squamous Epithelial Cell,Urine Occasional #/hpf (0-5); WBC,Urine Occasional #/hpf (0-3)
[2021-03-06] VITALS: BP 136/70; PULSE 85; O2SAT 98
--- NOTE | 2021-03-06 00:01 | CT_ITS ---
PROCEDURE INFORMATION: Exam: CT Abdomen And Pelvis Without Contrast Exam date and time: 03/06/2021 12:01 AM Age: 51 years old Clinical indication: Abdominal pain; Flank; Left; Additional info: Kidney stone rule out left flank pain TECHNIQUE: Imaging protocol: Computed tomography of the abdomen and pelvis without contrast. Radiation optimization: All CT scans at this facility use at least one of these dose optimization techniques: automated exposure control; mA and/or kV adjustment per patient size (includes targeted exams where dose is matched to clinical indication); or iterative reconstruction. COMPARISON: CT ABDOMEN PELVIS W CON 02/04/2021 12:10 PM FINDINGS: Lungs: Mild atelectasis. Liver: Normal. No mass. Gallbladder and bile ducts: Normal. No calcified stones. No ductal dilation. Pancreas: Normal. No ductal dilation. Spleen: Normal. No splenomegaly. Adrenal glands: Normal. No mass. Kidneys and ureters: No stones. No hydronephrosis. Stomach and bowel: Unremarkable. No obstruction. No mucosal thickening. Appendix: No evidence of appendicitis. Intraperitoneal space: See Lymph nodes finding. Vasculature: Unremarkable. No abdominal aortic aneurysm. Lymph nodes: Mildly prominent retroperitoneal lymph nodes. Mildly prominent mesenteric lymph nodes. There is also alberto mesentery Urinary bladder: Bladder is under distended, but appears trabeculated. Reproductive: Prostate is normal in size. Bones/joints: Unremarkable. No acute fracture. Soft tissues: Unremarkable. IMPRESSION: 1. No stones or hydronephrosis. 2. Mild retroperitoneal and mesenteric lymphadenopathy as well as alberto mesentery . Differential is broad but includes lymphoma.
--- NOTE | 2021-03-06 00:19 | HMH.EDGENADL ---
ED Disposition Clinical Impression: Lumbar radicular pain Disposition: Home, Self-Care Condition on Discharge: Good Instructions: DI for Low Back Pain Additional Instructions: fluids and use meds and see pcp for follow up Prescriptions: Tizanidine HCl [Zanaflex 4mg tab] 4 mg PO TID PRN #15 tab PRN Reason: Muscle Spasm Transmission Status: Pending to [facility] #[id number] Referrals: Fatmata Paiz APRN [Primary Care Provider] - - Critical Care Critical Care Time: No Attestation: On 03/05/21, the high probability of a clinically significant, sudden or life threatening deterioration of the following system(s) required my full and direct attention, intervention and personal management. The time I documented below is in addition to time spent performing reported procedures but includes the following listed in this critical care notation. Medical Decision Making - Medical Records Medical records reviewed: Yes: I reviewed the patient's medical records. - Fahad Inquiry Pt receiving controlled substance: No Vital Signs: 03/05/21 20:40 03/05/21 23:15 03/05/21 23:35 Temperature 97.6 F Temperature Source Oral Pulse Rate 88 86 Pulse Rate [Right Radial] 88 Respiratory Rate 20 Blood Pressure 152/76 H 120/63 Blood Pressure [Right Arm] 152/76 H Blood Pressure Mean [Right Arm] 101 Blood Pressure Source Blood Pressure Source [Right Arm] Automatic Cuff Blood Pressure Position Blood Pressure Position [Right Arm] Sitting 02 Sat by Pulse Oximetry 97 96 97 Oxygen Delivery Method Room Air Room Air 03/06/21 00:00 03/06/21 00:30 03/06/21 01:39 Temperature 98.5 F Temperature Source Oral Pulse Rate 85 86 84 Pulse Rate [Right Radial] Respiratory Rate 20 Blood Pressure 136/70 160/79 H 167/86 H Blood Pressure [Right Arm] Blood Pressure Mean [Right Arm] Blood Pressure Source Automatic Cuff Blood Pressure Source [Right Arm] Blood Pressure Position Sitting Blood Pressure Position [Right Arm] 02 Sat by Pulse Oximetry 98 97 Oxygen Delivery Method Room Air Room Air Room Air - Lab Data Lab results reviewed: Yes: I reviewed the patient's lab results. Lab Results 03/05/21 23:20: Urine Color Yellow, Urine Appearance Clear, Urine pH 6.0, Ur Specific Shorter 1.025, Urine Protein 1+, Urine Glucose (UA) 2+, Urine Ketones Negative, Urine Blood Negative, Urine Nitrate Negative, Urine Bilirubin Negative, Urine Urobilinogen 0.2, Ur Leukocyte Esterase Negative, Urine RBC Occasional, Urine WBC Occasional, Ur Squamous Epith Cells Occasional, Urine Bacteria Trace, Urine Sperm 1+ Orders (Tests/Meds): ED MEDICATIONS Discontinued Medications Generic Name Dose Route Start Last Admin Trade Name Jeremy PRN Reason Stop Dose Admin Acetaminophen 1,000 mg 03/05/21 23:29 03/05/21 23:31 Acetaminophen 500mg Tab PO 03/05/21 23:30 1,000 mg ONCE ONE Administration Acetaminophen/Codeine Phosphate 1 karel 03/06/21 01:38 03/06/21 01:43 Acetaminophen 300mg W/Codeine 30mg Take Home Pack (6) PO 03/06/21 01:39 1 karel ONCE ONE Administration Ibuprofen 600 mg 03/05/21 23:29 03/05/21 23:31 Ibuprofen 600 Mg Tablet PO 03/05/21 23:30 600 mg ONCE ONE Administration - CT Data CT Scan: Abdomen, Pelvis Time Received: 01:[address] Reviewed: Yes: I have viewed the radiologist's interpretation Preliminary Findings: Abnormal (see report ) Medical Decision Narrative: no acute changes on ct - will ask pt to call pcp monday General Adult HPI - General Chief complaint: PAIN Stated complaint: possible kidney stones Time Seen by Provider: 03/05/21 22:00 Mode of Arrival: Ambulatory Source of Information: Patient, Medical Record Limitations: No Limitations Description of Symptoms (Recalled from ER Triage Doc. by RN): Pt c/o left flank pain into his hip. Pt thinks he has a kidney stone. Pt denies fevers. Denies difficulty urinating. Denies N/V/D. - History of
[2021-03-06 00:30] VITALS: BP 160/79; PULSE 86; O2SAT 97
[2021-03-06 01:39] VITALS: BP 167/86; PULSE 84; RESP 20; TEMP 36.9; O2SAT 98
== END 2021-03-06 01:39 | disposition home or self-care (01) ==
PROVIDERS: Emergency Provider Emergency Medicine; PCP Nurse Practitioner Family
DX: M54.16 Radiculopathy, lumbar region (principal); I48.0 Paroxysmal atrial fibrillation; E11.9 Type 2 diabetes mellitus without complications; I25.10 Atherosclerotic heart disease of native coronary artery without angina pectoris; E78.5 Hyperlipidemia, unspecified; I50.9 Heart failure, unspecified; K21.9 Gastro-esophageal reflux disease without esophagitis; F41.8 Other specified anxiety disorders; Z79.899 Other long term (current) drug therapy
CPT/HCPCS: 74176; 81001; 99282

== ENCOUNTER 2021-03-06 12:30 | Emergency (ER) | payer MEDICARE, MEDICAID, SELFPAY ==
[2021-03-06 13:01] VITALS: BP 128/83; PULSE 102; RESP 20; TEMP 36.7; O2SAT 98; BMI 48.6
--- NOTE | 2021-03-06 14:13 | HMH.EDGENADL ---
ED Disposition Clinical Impression: Lumbar radiculopathy Disposition: Home, Self-Care Condition on Discharge: Good Instructions: DI for Low Back Pain Prescriptions: Oxycodone HCl [Oxycodone 5mg tab (IR)] 5 mg PO Q8 #6 tablet Transmission Status: Received by [facility] #[id number] Referrals: Star Mathis MD [Primary Care Provider] - - Critical Care Critical Care Time: No Attestation: On 03/06/21, the high probability of a clinically significant, sudden or life threatening deterioration of the following system(s) required my full and direct attention, intervention and personal management. The time I documented below is in addition to time spent performing reported procedures but includes the following listed in this critical care notation. Medical Decision Making - Medical Records Medical records reviewed: Yes: I reviewed the patient's medical records. - Fahad Inquiry Pt receiving controlled substance: Yes Fahad was queried for this patient: Yes Risks and benefits of using a controlled substance: were discussed with pt by me Vital Signs: 03/06/21 13:01 Temperature 98.1 F Temperature Source Oral Pulse Rate [Radial] 102 H Respiratory Rate 20 Blood Pressure [Right Arm] 128/83 Blood Pressure Mean [Right Arm] 98 Blood Pressure Position [Right Arm] Sitting 02 Sat by Pulse Oximetry 98 Oxygen Delivery Method Room Air Orders (Tests/Meds): ED MEDICATIONS Discontinued Medications Generic Name Dose Route Start Last Admin Trade Name Freq PRN Reason Stop Dose Admin Ketorolac Tromethamine 30 mg 03/06/21 13:39 03/06/21 13:49 Ketorolac 30mg/Ml Vial IM 03/06/21 13:40 30 mg ONCE ONE Administration Oxycodone HCl 10 mg 03/06/21 13:39 03/06/21 13:49 Oxycodone 5mg Immediate Release Tablet PO 03/06/21 13:40 10 mg ONCE STA Administration Medical Decision Narrative: Patient is a 51-year-old presents the ED today for evaluation of acute on chronic low back pain. Patient is well-appearing on initial evaluation in no acute distress with stable vital signs. Patient has left-sided radicular symptoms, but no weakness, no bowel bladder incontinence, no saddle anesthesia, no weakness of the lower extremities. I will refer patient to [facility] spine, with neurosurgery or orthopedic spine as patient had the symptoms for some time, and does her spine follow-up. Patient given enough oxycodone to last on Monday until he can schedule appoint with his primary care for long-term pain management. As oxycodone is suboptimal choice, but given the patient has a bed multiple ED visits this is reasonable alternative. Will defer steroid management at this time, as patient has pretty bad CHF, and high risk exacerbation or infection, which could be overwhelming in his case. General Adult HPI - General Chief complaint: Back Pain/Injury Stated complaint: BACK PAIN Time Seen by Provider: 03/06/21 13:34 Mode of Arrival: Ambulatory Limitations: No Limitations Description of Symptoms (Recalled from ER Triage Doc. by RN): TO ED PER PVT CAR WITH C/O LT SIDE LOW BACK PAIN RADIATING DOWN LT LEG X 3-4 DAYS. PT STATES SEEN IN ED LASTNIGHT GIVEN TYLENOL #3 AND MUSCLE RELAXER. PT STATES NO RELIEF OF PAIN - History of Present Illness HPI narrative: 51-year-old male presents the ED today for further evaluation of acute on chronic back pain. Patient states that he gets this type of pain once or twice a year, was here in the emergency department last night, was given Tylenol 3 and tizanidine, states that these have only helped modestly. Patient states he never had back surgery before, states that he has not seen a spine physician for this pain. States that he has been otherwise well recently denies any shortness of breath, chest pain. Patient states he is able to walk in his lower extremities has chronic congestive heart failure, venous stasis dermatitis of the bilateral lower extremities, states that his
[2021-03-06 16:21] VITALS: BP 110/74; PULSE 78; RESP 16; TEMP 36.6; O2SAT 98
== END 2021-03-06 16:23 | disposition home or self-care (01) ==
PROVIDERS: Emergency Provider Student in an Organized Health Care Education/Training Program; PCP Emergency Medicine
DX: M54.16 Radiculopathy, lumbar region (principal); I50.9 Heart failure, unspecified; I25.10 Atherosclerotic heart disease of native coronary artery without angina pectoris; I48.0 Paroxysmal atrial fibrillation; E11.9 Type 2 diabetes mellitus without complications; K21.9 Gastro-esophageal reflux disease without esophagitis; I10 Essential (primary) hypertension; E78.5 Hyperlipidemia, unspecified; Z87.891 Personal history of nicotine dependence; Z79.899 Other long term (current) drug therapy
CPT/HCPCS: 99281

== ENCOUNTER 2021-03-08 05:40 | Emergency (ER) | payer MEDICARE, MEDICAID, SELFPAY ==
[2021-03-08 05:26] VITALS: BP 156/78; PULSE 104; RESP 21; TEMP 36.8; O2SAT 96; BMI 48.6
[2021-03-08 05:40] LABS: POC Glucose,Bedside 384 (70-110)
[2021-03-08 05:47] LABS: Basophils % 0.2 % (0.1-2.0); Eosinophils # 0.2 K/mm3 (0.0-0.4); Eosinophils % 2.7 % (0.1-12.0); Hemoglobin 8.7 g/dL (14.1-18.0); Lymphocytes % 16.2 % (10-50); Mean Corpuscular Hemoglobin 23.5 pg (27.0-31.2); Monocytes # 0.4 K/mm3 (0.1-1.0); Monocytes % 5.6 % (1.7-9.3); Neutrophils # 4.7 K/mm3 (1.8-7.8); Neutrophils % 75.3 % (37.0-80.0); Platelet Count 283 K/mm3 (142-424); Red Blood Count 3.71 M/mm3 (4.60-6.20); White Blood Count 6.3 K/mm3 (4.8-10.8)
[2021-03-08 05:48] LABS: Chloride 100 mmol/L (98-107)
[2021-03-08 05:49] LABS: Potassium 4.6 mmoL/L (3.5-5.1); Sodium 138 mmol/L (136-145)
[2021-03-08 05:51] LABS: Alanine Aminotransferase 40 U/L (12-78); Alkaline Phosphatase 164 U/L (38-126); Aspartate Amino Transferase 53 U/L (17-59); Blood Urea Nitrogen 29 mg/dl (9-20); Creatinine Clearance Estimated 78 mL/min (50-200); Estimated Glomerular Filt Rate 71 ml/min (>60); GFR (African American) 86 ML/MIN (>60)
[2021-03-08 05:52] LABS: Albumin Level 3.4 g/dl (3.5-5.0); Albumin/Globulin Ratio 1.2 (1.1-1.8); Anion Gap 14.6 mEq/L (5-15); Calcium 8.3 mg/dl (8.4-10.2); Carbon Dioxide 28 mmol/L (22.0-30.0); Globulin 2.9 g/dL (1.3-3.2); Total Protein,Serum 6.3 g/dl (6.3-8.2)
[2021-03-08 05:57] LABS: Bilirubin,Total 0.1 mg/dl (0.2-1.3); Glucose 437 mg/dl (74-100)
--- NOTE | 2021-03-08 05:57 | PC.NURSE ---
critical glucose of 437mg/dl notified to .
--- NOTE | 2021-03-08 06:48 | HMH.EDBACK ---
ED Disposition Clinical Impression: Lumbar radicular pain Diabetes mellitus Qualifiers: Diabetes mellitus type: type 1 Diabetes mellitus complication status: with other specified complication Qualified Code(s): E10.69 - Type 1 diabetes mellitus with other specified complication Anemia Qualifiers: Anemia type: unspecified type Qualified Code(s): D64.9 - Anemia, unspecified Disposition: Home, Self-Care Condition on Discharge: Fair Instructions: DI for Back Pain With Sciatica Additional Instructions: see pcp for follow up Referrals: Star Mathis MD [Primary Care Provider] - - Critical Care Critical Care Time: No Attestation: On 03/08/21, the high probability of a clinically significant, sudden or life threatening deterioration of the following system(s) required my full and direct attention, intervention and personal management. The time I documented below is in addition to time spent performing reported procedures but includes the following listed in this critical care notation. Medical Decision Making - Medical Records Medical records reviewed: Yes: I reviewed the patient's medical records. - Fahad Inquiry Pt receiving controlled substance: No Vital Signs: 03/08/21 05:26 Temperature 98.2 F Temperature Source Oral Pulse Rate [Right Radial] 104 H Respiratory Rate 21 Blood Pressure [Right Arm] 156/78 H Blood Pressure Mean [Right Arm] 104 Blood Pressure Source [Right Arm] Automatic Cuff Blood Pressure Position [Right Arm] Sitting 02 Sat by Pulse Oximetry 96 Oxygen Delivery Method Room Air - Lab Data Lab results reviewed: Yes: I reviewed the patient's lab results. Lab Results 03/08/21 05:28: WBC 6.3, RBC 3.71 L, Hgb 8.7 L, Hct 30.0 L, MCV 81.0, MCH 23.5 L, MCHC 29.0 L, RDW 17.0, Plt Count 283, MPV 7.0 L, Neut % (Auto) 75.3, Lymph % (Auto) 16.2, [place] % (Auto) 5.6, Eos % (Auto) 2.7, Baso % (Auto) 0.2, Neut # (Auto) 4.7, Lymph # (Auto) 1.0, [place] # (Auto) 0.4, Eos # (Auto) 0.2, Baso # (Auto) 0.0 03/08/21 05:28: Sodium 138, Potassium 4.6, Chloride 100, Carbon Dioxide 28, Anion Gap 14.6, BUN 29 H, Creatinine 1.10, Estimated Creat Clear 78, Estimated GFR 71, Est GFR ( Amer) 86, Glucose 437 H*, Calcium 8.3 L, Total Bilirubin 0.1 L, AST 53, ALT 40, Alkaline Phosphatase 164 H, Total Protein 6.3, Albumin 3.4 L, Globulin 2.9, Albumin/Globulin Ratio 1.2 03/08/21 05:31: POC Glucose 384 H* 03/08/21 06:41: Urine Color Yellow, Urine Appearance Clear, Urine pH 5.5, Ur Specific [place] 1.015, Urine Protein Trace, Urine Glucose (UA) 3+, Urine Ketones Negative, Urine Blood Negative, Urine Nitrate Negative, Urine Bilirubin Negative, Urine Urobilinogen 0.2, Ur Leukocyte Esterase Negative Result diagrams: 03/08/21 05:28 03/08/21 05:28 Orders (Tests/Meds): ED MEDICATIONS Discontinued Medications Generic Name Dose Route Start Last Admin Trade Name Freq PRN Reason Stop Dose Admin Sodium Chloride 1,000 mls @ 999 mls/hr 03/08/21 06:00 03/08/21 06:02 Sod Chlor 0.9% 1000ml Bag IV 03/08/21 07:00 999 mls/hr .Q1H1M CARLIN Administration Insulin Human Regular 5 unit 03/08/21 05:58 03/08/21 06:02 Insulin Human Regular 100 Units/Ml 10ml Vial IVP 03/08/21 05:59 5 unit ONCE ONE Administration Oxycodone HCl 5 mg 03/08/21 07:09 Oxycodone 5mg Immediate Release Tablet PO 03/08/21 07:10 ONCE ONE ORDERS Category Date Time Status Drug Screen,Urine Stat Lab 03/08/21 06:41 Received UA [Urinalysis and Microscopic] Stat Lab 03/08/21 06:41 Results Medical Decision Narrative: has ongoing back pain with iddm and anemia - Back Pain HPI - General Chief Complaint: Back Pain/Injury Stated Complaint: Pain Time Seen by Provider: 03/08/21 06:00 Mode of Arrival: EMS Source of Information: Patient, EMS, Medical Record Limitations: No Limitations Description of Symptoms (Recalled from ER Triage Doc. by RN): Pt c/o back pain that radiates down his left leg. Pt was seen in this ED 02/24
[2021-03-08 07:11] LABS: Microscopic, Urine URINE MICROSCOPIC (MICROSCOPIC)
[2021-03-08 07:21] LABS: Appearance,Urine CLEAR (Clear); Bilirubin,Urine Negative (Negative); Blood, Urine Negative (Negative); Color,Urine YELLOW (Yellow); Glucose,Urine (UA) 3+ (Negative); Ketones,Urine Negative (Negative); Leukocyte Esterase,Urine Negative (Negative); Nitrate,Urine Negative (Negative); PH,Urine 5.5 (5.0-8.5); Protein,Urine TRACE (Negative); Specific Gravity, Urine 1.015 (1.005-1.030); Urobilinogen,Urine 0.2 EU/dl (0.2)
[2021-03-08 08:10] VITALS: BP 129/52; PULSE 71; RESP 20; TEMP 35.5; O2SAT 100
[2021-03-08 08:17] LABS: Barbiturates Screen,Urine Negative ng/ml (<200)
[2021-03-08 08:18] LABS: Amphetamine/Metha Screen,Urine Negative ng/ml (<1000); Benzodiazepines Screen,Urine Negative ng/ml (<200)
[2021-03-08 08:19] LABS: Cocaine Screen,Urine Negative ng/ml (<300)
[2021-03-08 08:20] LABS: Cannabinoid Screen,Urine Negative ng/ml (<50); Methadone Screen,Urine Negative ng/ml (<300)
[2021-03-08 08:21] LABS: Opiate Screen,Urine Positive ng/ml (<300); Phencyclidine Screen,Urine Negative ng/ml (<25)
== END 2021-03-08 08:11 | disposition home or self-care (01) ==
PROVIDERS: Emergency Provider Emergency Medicine; PCP Emergency Medicine
DX: M54.5 Low back pain (principal); E10.69 Type 1 diabetes mellitus with other specified complication; D64.9 Anemia, unspecified; I10 Essential (primary) hypertension; E78.5 Hyperlipidemia, unspecified; I25.10 Atherosclerotic heart disease of native coronary artery without angina pectoris; F41.8 Other specified anxiety disorders; I48.0 Paroxysmal atrial fibrillation; K21.9 Gastro-esophageal reflux disease without esophagitis; Z87.891 Personal history of nicotine dependence; Z79.899 Other long term (current) drug therapy
CPT/HCPCS: 80053; 80305; 81001; 82962; 85025; 99282

== ENCOUNTER 2021-03-10 11:00 | Outpatient (RCR) | payer MEDICARE, MEDICAID, SELFPAY ==
--- NOTE | 2021-02-19 10:02 | HMH.PTOPEV ---
PT Outpatient Evaluation Rehab PT Outpatient Evaluation Start: 02/19/21 09:51 Freq: Status: Active Protocol: Document 02/19/21 09:52 JOANN (Rec: 02/19/21 10:02 JOANN [id number]) Electronically Signed By Aaron Keller, PT 02/19/21 09:52 Outpatient Therapy Subjective History Subjective History Pt presents s/p extended hospital stay for COPD exacerbation now w/generalized weakness and balance deficits . Pt reports ability to transfer I, however, very limited w/ability to stand/ walk, and reports baseline before hospitalization was ~2- 3 min standing/walking w/RW. Pt also reports chronic LBP w/ N&T in BLE. Chief Complaint Pain,Paresthesia,Weakness Symptom Type Ache,Dull,Numbness,Tingling Symptoms Relieved By Rest/Positioning Symptoms Aggravated By Standing,Physical Activity, Walking Prior Functional Limitations Housework,Standing,Walking, Balance Current Functional Limitations Housework,Standing,Walking, Balance Symptom Description Constant but Variable Level of pain today (0-10) 7 Pain scale - at its best (0-10) 7 Pain scale - at its worst (0-10) 10 Lumbopelvic Eval Posture Thoracic Spine Posture Standing Position Neutral Lumbar Spine Posture Standing Position Flattened Assistive device Assistive Devices Wheelchair Gait Observation General Gait Pattern Observation Wide Based Gait,Ataxic Gait, Shuffling Step Palapation tenderness bilateral paraspinal tenderness Yes: 3/4 buttock tenderness Yes: 3/4 Lumbar/Sacral Palpation Findings Tenderness Manual Muscle Test Left Knee Extension Strength Grade 5 Normal Knee Flexion Strength Grade 5 Normal Hip Flexion Strength Grade 4- Good- Ankle Dorsiflexion Strength Grade 4 Good Right Knee Extension Strength Grade 4 Good Knee Flexion Strength Grade 4 Good Hip Flexion Strength Grade 3+ Fair+ Ankle Dorsiflexion Strength Grade 4 Good Tinetti Sitting Balance Sitting Balance Steady, safe Arising from Chair Ability to Arise Able, uses arms to help Attempts to Arise Arises on 1st attempt Standing Balance Immediate Standing Balance Steady with support Standing Balance Steady, wide stance Nudged Response Begins to fall Standing with Eyes Closed Unsteady Turning
== END 2021-03-10 11:05 | disposition home or self-care (01) ==
LOC: PT 11:00
PROVIDERS: PCP Emergency Medicine; Visit Provider Emergency Medicine
DX: R53.1 Weakness (principal)
CPT/HCPCS: 97010; 97014; 97110; 97163; G0283

== ENCOUNTER 2021-03-20 13:20 | Emergency (ER) | payer MEDICARE, MEDICAID, SELFPAY ==
[2021-03-20 13:21] VITALS: BP 108/98; PULSE 106; RESP 16; TEMP 36.8; O2SAT 97; BMI 45.6
[2021-03-20 13:43] LABS: Microscopic, Urine URINE MICROSCOPIC (MICROSCOPIC)
[2021-03-20 13:44] LABS: Appearance,Urine CLEAR (Clear); Bilirubin,Urine Negative (Negative); Blood, Urine TRACE-I (Negative); Color,Urine YELLOW (Yellow); Glucose,Urine (UA) 1+ (Negative); Ketones,Urine Negative (Negative); Leukocyte Esterase,Urine Negative (Negative); Nitrate,Urine Negative (Negative); Protein,Urine 2+ (Negative); Specific Gravity, Urine 1.025 (1.005-1.030); Urobilinogen,Urine 0.2 EU/dl (0.2)
[2021-03-20 14:01] LABS: Hyaline Casts,Urine Occasional #/lpf (0); Mucus,Urine Trace /lpf; RBC,Urine Occasional #/hpf (0-3); Squamous Epithelial Cell,Urine Occasional #/hpf (0-5)
--- NOTE | 2021-03-20 14:25 | HMH.EDGENADL ---
ED Disposition Clinical Impression: Visual disturbance Abdominal pain Qualifiers: Abdominal location: generalized Qualified Code(s): R10.84 - Generalized abdominal pain Disposition: Home, Self-Care Condition on Discharge: Fair Instructions: DI for Acute Abdominal Pain, DI for Visual Field Disturbances Additional Instructions: Zofran as needed. Call your fabrication technician as soon as possible for evaluation. Additional instructions for ABDOMINAL PAIN: See your physician as soon as possible for further evaluation. Return immediately if worsening abdominal pain, vomiting, shortness of breath, fever, vomiting of blood or abdominal distention. Prescriptions: Ondansetron [Zofran 4mg ODT] 4 mg PO TIDP PRN #10 tab PRN Reason: Nausea And Vomiting Transmission Status: Received by [facility] #[id number] Referrals: Star Mathis MD [Primary Care Provider] - - Critical Care Critical Care Time: No Attestation: On 03/20/21, the high probability of a clinically significant, sudden or life threatening deterioration of the following system(s) required my full and direct attention, intervention and personal management. The time I documented below is in addition to time spent performing reported procedures but includes the following listed in this critical care notation. Medical Decision Making - Fahad Inquiry Pt receiving controlled substance: Yes Fahad was queried for this patient: Yes Risks and benefits of using a controlled substance: were not discussed with pt by me Vital Signs: 03/20/21 13:21 Temperature 98.2 F Temperature Source Oral Pulse Rate [Right Radial] 106 H Respiratory Rate 16 Blood Pressure [Right Arm] 108/98 L Blood Pressure Mean [Right Arm] 101 Blood Pressure Source [Right Arm] Automatic Cuff Blood Pressure Position [Right Arm] Sitting 02 Sat by Pulse Oximetry 97 Oxygen Delivery Method Room Air - Lab Data Lab Results 03/20/21 13:36: Urine Color Yellow, Urine Appearance Clear, Urine pH 6.0, Ur Specific [place] 1.025, Urine Protein 2+, Urine Glucose (UA) 1+, Urine Ketones Negative, Urine Blood Trace-i, Urine Nitrate Negative, Urine Bilirubin Negative, Urine Urobilinogen 0.2, Ur Leukocyte Esterase Negative, Urine RBC Occasional, Urine WBC None, Ur Squamous Epith Cells Occasional, Urine Bacteria None, Hyaline Casts Occasional, Urine Mucus Trace 03/20/21 14:44: WBC 10.1, RBC 4.53 L, Hgb 10.3 L, Hct 34.8 L, MCV 76.8 L, MCH 22.8 L, MCHC 29.6 L, RDW 17.2, Plt Count 471 H, MPV 8.3, Neut % (Auto) 73.9, Lymph % (Auto) 16.0, [place] % (Auto) 6.4, Eos % (Auto) 3.2, Baso % (Auto) 0.5, Neut # (Auto) 7.5, Lymph # (Auto) 1.6, [place] # (Auto) 0.7, Eos # (Auto) 0.3, Baso # (Auto) 0.1 03/20/21 14:44: Sodium 141, Potassium 4.5, Chloride 98, Carbon Dioxide 30, Anion Gap 17.5 H, BUN 28 H, Creatinine 1.10, Estimated Creat Clear 78, Estimated GFR 71, Est GFR ( Amer) 86, Glucose 239 H, Calcium 10.0, Total Bilirubin 0.3, AST 58, ALT 50, Alkaline Phosphatase 155 H, Troponin I < 0.01, Total Protein 8.3 H D, Albumin 4.5, Globulin 3.8 H, Albumin/Globulin Ratio 1.2, Lipase 218 03/20/21 14:46: POC Glucose 218 H Result diagrams: 03/20/21 14:44 03/20/21 14:44 Orders (Tests/Meds): ED MEDICATIONS Discontinued Medications Generic Name Dose Route Start Last Admin Trade Name Sarkisq PRN Reason Stop Dose Admin Iopamidol 75 ml 03/20/21 15:54 03/20/21 15:55 Iopamidol-370 (76%);100ml Bottle IV 03/20/21 15:55 75 ml ONCE ONE Administration Morphine Sulfate 4 mg 03/20/21 14:43 03/20/21 14:48 Morphine 4mg/Ml Syringe IV 03/20/21 14:44 4 mg ONCE ONE Administration Ondansetron HCl 4 mg 03/20/21 14:43 03/20/21 14:48 Ondansetron 4mg/2ml Vial IV 03/20/21 14:44 4 mg ONCE ONE Administration Ondansetron HCl 4 mg 03/20/21 16:54 03/20/21 16:59 Ondansetron 4mg/2ml Vial IV 03/20/21 16:55 4 mg ONCE ONE Administration Sodium Chloride 10 ml 03/20/21 15:54 03/20/21 15:55 Sodium Chl
--- NOTE | 2021-03-20 14:37 | CT_ITS ---
PROCEDURE INFORMATION: Exam: CT Abdomen And Pelvis With Contrast Exam date and time: 03/20/2021 2:37 PM Age: 51 years old Clinical indication: Abdominal pain TECHNIQUE: Imaging protocol: Computed tomography of the abdomen and pelvis with contrast. Radiation optimization: All CT scans at this facility use at least one of these dose optimization techniques: automated exposure control; mA and/or kV adjustment per patient size (includes targeted exams where dose is matched to clinical indication); or iterative reconstruction. Contrast material: ISOVUE; Contrast volume: 75 ml; Contrast route: IV; COMPARISON: CT ABDOMEN PELVIS WO CON 03/06/2021 12:37 AM FINDINGS: Liver: Hepatomegaly 26 cm. Gallbladder and bile ducts: Normal. No calcified stones. No ductal dilation. Pancreas: Normal. No ductal dilation. Spleen: Splenomegaly 15 cm. Adrenal glands: Normal. No mass. Kidneys and ureters: Normal. No hydronephrosis. Stomach and bowel: Unremarkable. No obstruction. No mucosal thickening. Appendix: Normal appendix Intraperitoneal space: Unremarkable. No free air. No significant fluid collection. Vasculature: Unremarkable. No abdominal aortic aneurysm. Lymph nodes: Pathologic retroperitoneal node 2 x 1.5 cm. Additional smaller retroperitoneal nodes. Peripancreatic nodes Urinary bladder: Unremarkable as visualized. Reproductive: Unremarkable as visualized. Bones/joints: Unremarkable. No acute fracture. Soft tissues: Unremarkable. IMPRESSION: 1. Hepatomegaly 26 cm. 2. Splenomegaly 15 cm.
--- NOTE | 2021-03-20 14:44 | ECG_ITS ---
APPROVED REPORT Exam: Resting ECG HR:103 bpm ECG Measurements Heart Rate 103 AXES VT 142 P 47 QRSd 96 QRS -6 QT 352 T 51 QTc 461 Conclusion Sinus tachycardia Otherwise normal ECG Electronically signed by : Cameron Kohli MD 03/21/2021 20:53:18
[2021-03-20 14:52] LABS: POC Glucose,Bedside 218 (70-110)
[2021-03-20 15:03] LABS: Basophils # 0.1 K/mm3 (0-0.2); Basophils % 0.5 % (0.1-2.0); Eosinophils # 0.3 K/mm3 (0.0-0.4); Eosinophils % 3.2 % (0.1-12.0); Hematocrit 34.8 % (42.0-52.0); Hemoglobin 10.3 g/dL (14.1-18.0); Lymphocytes # 1.6 K/mm3 (0.7-4.5); Mean Corpuscular HGB Conc 29.6 g/dL (31.8-35.4); Mean Corpuscular Hemoglobin 22.8 pg (27.0-31.2); Mean Corpuscular Volume 76.8 fl (80-94); Mean Platelet Volume 8.3 fl (7.4-10.4); Monocytes # 0.7 K/mm3 (0.1-1.0); Monocytes % 6.4 % (1.7-9.3); Neutrophils # 7.5 K/mm3 (1.8-7.8); Neutrophils % 73.9 % (37.0-80.0); Platelet Count 471 K/mm3 (142-424); Red Blood Count 4.53 M/mm3 (4.60-6.20); Red Cell Distribution Width 17.2 % (11.5-17.5); White Blood Count 10.1 K/mm3 (4.8-10.8)
[2021-03-20 15:08] LABS: Chloride 98 mmol/L (98-107); Sodium 141 mmol/L (136-145)
[2021-03-20 15:09] LABS: Potassium 4.5 mmoL/L (3.5-5.1)
[2021-03-20 15:11] LABS: Alanine Aminotransferase 50 U/L (12-78); Albumin Level 4.5 g/dl (3.5-5.0); Albumin/Globulin Ratio 1.2 (1.1-1.8); Alkaline Phosphatase 155 U/L (38-126); Anion Gap 17.5 mEq/L (5-15); Aspartate Amino Transferase 58 U/L (17-59); Bilirubin,Total 0.3 mg/dl (0.2-1.3); Blood Urea Nitrogen 28 mg/dl (9-20); Carbon Dioxide 30 mmol/L (22.0-30.0); Creatinine Clearance Estimated 78 mL/min (50-200); Estimated Glomerular Filt Rate 71 ml/min (>60); GFR (African American) 86 ML/MIN (>60); Globulin 3.8 g/dL (1.3-3.2); Glucose 239 mg/dl (74-100); Lipase 218 U/L (23-300); Total Protein,Serum 8.3 g/dl (6.3-8.2)
[2021-03-20 15:27] LABS: Troponin I < 0.01 ng/ml (0.00-0.034)
[2021-03-20 17:15] VITALS: BP 121/78; PULSE 62; RESP 18; TEMP 36.6; O2SAT 97
== END 2021-03-20 17:16 | disposition home or self-care (01) ==
PROVIDERS: Emergency Provider Emergency Medicine; PCP Emergency Medicine
DX: H54.3 Unqualified visual loss, both eyes (principal); R10.84 Generalized abdominal pain; E11.65 Type 2 diabetes mellitus with hyperglycemia; I48.0 Paroxysmal atrial fibrillation; I25.10 Atherosclerotic heart disease of native coronary artery without angina pectoris; K21.9 Gastro-esophageal reflux disease without esophagitis; I10 Essential (primary) hypertension; E78.5 Hyperlipidemia, unspecified; F41.8 Other specified anxiety disorders; I50.9 Heart failure, unspecified; Z87.891 Personal history of nicotine dependence; Z79.899 Other long term (current) drug therapy
CPT/HCPCS: 74177; 80053; 81001; 82962; 83690; 84484; 85025; 93005; 96366; 96367; 96374; 99283; J2405; Q9967

== ENCOUNTER 2021-03-24 19:56 | Emergency (ER) | payer MEDICARE, MEDICAID, SELFPAY ==
[2021-03-24 19:43] VITALS: BP 149/85; PULSE 102; RESP 21; TEMP 36.8; O2SAT 96; BMI 45.6
--- NOTE | 2021-03-24 19:45 | ECG_ITS ---
APPROVED REPORT Exam: Resting ECG HR:106 bpm ECG Measurements Heart Rate 106 AXES WA 148 P 57 QRSd 98 QRS -1 QT 362 T 51 QTc 480 Conclusion Sinus tachycardia Otherwise normal ECG Electronically signed by : Cameron Kohli MD 03/26/2021 19:58:01
--- NOTE | 2021-03-24 20:12 | XR_ITS ---
PROCEDURE INFORMATION: Exam: XR Chest Exam date and time: 03/24/2021 8:12 PM Age: 51 years old Clinical indication: Shortness of breath; Patient HX: SOA TECHNIQUE: Imaging protocol: XR of the chest. Views: 2 views. COMPARISON: CR XR CHEST PORTABLE 02/11/2021 8:35 PM FINDINGS: Lungs: There are scattered linear opacities at the lung bases, likely subsegmental atelectasis. No airspace consolidation. No overt pulmonary edema. Pleural spaces: No pleural effusion. No pneumothorax. Heart/Mediastinum: Normal heart size. Bones/joints: Unremarkable. IMPRESSION: Linear opacities at the bilateral lung bases, likely atelectasis.
[2021-03-24 20:24] LABS: Basophils # 0.1 K/mm3 (0-0.2); Basophils % 0.8 % (0.1-2.0); Eosinophils # 0.4 K/mm3 (0.0-0.4); Eosinophils % 4.9 % (0.1-12.0); Hematocrit 31.4 % (42.0-52.0); Hemoglobin 9.6 g/dL (14.1-18.0); Lymphocytes # 1.6 K/mm3 (0.7-4.5); Lymphocytes % 20.4 % (10-50); Mean Corpuscular HGB Conc 30.6 g/dL (31.8-35.4); Mean Corpuscular Hemoglobin 23.1 pg (27.0-31.2); Mean Corpuscular Volume 75.5 fl (80-94); Mean Platelet Volume 7.7 fl (7.4-10.4); Monocytes # 0.6 K/mm3 (0.1-1.0); Monocytes % 7.2 % (1.7-9.3); Neutrophils # 5.3 K/mm3 (1.8-7.8); Neutrophils % 66.6 % (37.0-80.0); Platelet Count 518 K/mm3 (142-424); Red Blood Count 4.15 M/mm3 (4.60-6.20); White Blood Count 7.9 K/mm3 (4.8-10.8)
[2021-03-24 20:34] LABS: Alanine Aminotransferase 44 U/L (12-78); Albumin/Globulin Ratio 1.2 (1.1-1.8); Alkaline Phosphatase 177 U/L (38-126); Anion Gap 13.3 mEq/L (5-15); Aspartate Amino Transferase 44 U/L (17-59); Bilirubin,Total 0.2 mg/dl (0.2-1.3); Blood Urea Nitrogen 25 mg/dl (9-20); Calcium 8.9 mg/dl (8.4-10.2); Carbon Dioxide 26 mmol/L (22.0-30.0); Chloride 103 mmol/L (98-107); Creatinine Clearance Estimated 95 mL/min (50-200); Estimated Glomerular Filt Rate 89 ml/min (>60); GFR (African American) 108 ML/MIN (>60); Globulin 3.4 g/dL (1.3-3.2); Glucose 371 mg/dl (74-100); Potassium 4.3 mmoL/L (3.5-5.1); Sodium 138 mmol/L (136-145); Total Protein,Serum 7.4 g/dl (6.3-8.2)
[2021-03-24 20:39] LABS: C-Reactive Protein 7.6 mg/L (0-4)
[2021-03-24 20:45] LABS: NT Pro Brain Natriuretic Pep. 25.6 pg/mL (0-125)
[2021-03-24 20:47] LABS: Erythrocyte Sedimentation Rate 107 mm/hr (0-15)
[2021-03-24 20:49] LABS: Troponin I < 0.01 ng/ml (0.00-0.034)
[2021-03-24 20:50] LABS: Procalcitonin 0.189 ng/mL (0.0-2.0)
--- NOTE | 2021-03-24 22:30 | HMH.EDSOB ---
ED Disposition Clinical Impression: Acute exacerbation of chronic obstructive airways disease CHF (congestive heart failure) Qualifiers: Heart failure type: unspecified Heart failure chronicity: acute on chronic Qualified Code(s): I50.9 - Heart failure, unspecified Disposition: Home, Self-Care Condition on Discharge: Good Instructions: DI for Shortness of Breath Additional Instructions: call pcp in am Referrals: Bert Villagomez MD [Primary Care Provider] - - Critical Care Critical Care Time: No Attestation: On 03/24/21, the high probability of a clinically significant, sudden or life threatening deterioration of the following system(s) required my full and direct attention, intervention and personal management. The time I documented below is in addition to time spent performing reported procedures but includes the following listed in this critical care notation. Medical Decision Making - Medical Records Medical records reviewed: Yes: I reviewed the patient's medical records. - Fahad Inquiry Pt receiving controlled substance: No Vital Signs: 03/24/21 19:43 03/24/21 22:48 Temperature 98.2 F Temperature Source Oral Pulse Rate 101 H Pulse Rate [Right] 102 H Respiratory Rate 21 Blood Pressure [Right Arm] 149/85 H Blood Pressure Mean [Right Arm] 106 Blood Pressure Source [Right Arm] Automatic Cuff 02 Sat by Pulse Oximetry 96 Oxygen Delivery Method Room Air - Lab Data Lab results reviewed: Yes: I reviewed the patient's lab results. Lab Results 03/24/21 19:59: WBC 7.9, RBC 4.15 L, Hgb 9.6 L, Hct 31.4 L, MCV 75.5 L, MCH 23.1 L, MCHC 30.6 L, RDW 17.0, Plt Count 518 H, MPV 7.7, Neut % (Auto) 66.6, Lymph % (Auto) 20.4, [place] % (Auto) 7.2, Eos % (Auto) 4.9, Baso % (Auto) 0.8, Neut # (Auto) 5.3, Lymph # (Auto) 1.6, [place] # (Auto) 0.6, Eos # (Auto) 0.4, Baso # (Auto) 0.1, ESR 107 H 03/24/21 19:59: Sodium 138, Potassium 4.3, Chloride 103, Carbon Dioxide 26, Anion Gap 13.3, BUN 25 H, Creatinine 0.90, Estimated Creat Clear 95, Estimated GFR 89, Est GFR ( Amer) 108, Glucose 371 H, Calcium 8.9, Total Bilirubin 0.2, AST 44, ALT 44, Alkaline Phosphatase 177 H, Troponin I < 0.01, C-Reactive Protein 7.6 H, Total Protein 7.4, Albumin 4.0, Globulin 3.4 H, Albumin/Globulin Ratio 1.2 03/24/21 19:59: Procalcitonin 0.189 03/24/21 19:59: NT-Pro-B Natriuret Pep 25.6 Result diagrams: 03/24/21 19:59 03/24/21 19:59 Orders (Tests/Meds): ED MEDICATIONS Discontinued Medications Generic Name Dose Route Start Last Admin Trade Name Jeremy PRN Reason Stop Dose Admin Albuterol Sulfate 2 puffs 03/25/21 00:00 Albuterol-Hfa 90mcg/Puff Inhaler 8gm IH 04/24/21 00:00 Q6RT CARLIN Albuterol/Ipratropium 3 ml 03/24/21 22:35 03/24/21 22:47 Ipratropium/Albuterol 3 Ml Neb IH 03/24/21 22:36 3 ml ONCE ONE Administration Furosemide 40 mg 03/24/21 22:26 03/24/21 22:27 Furosemide 40mg/4ml Vial IV 03/24/21 22:27 40 mg ONCE ONE Administration Miscellaneous 1 unit 03/24/21 22:29 Aerochamber/Optihaler MC 03/24/21 22:30 ONCE ONE ORDERS Category Date Time Status Troponin I Q3H Lab 03/25/21 02:30 Ordered UA [Urinalysis and Microscopic] Stat Lab 03/24/21 20:18 Ordered - Radiology Data #1 Image(s): Chest Image Reviewed: Yes I have reviewed radiologist's interpretation Preliminary Findings: Normal/NAD - ECG Data Tracing #1 Normal Sinus Rhythm: Yes Ischemic changes: non-specific ST-T wave changes Medical Decision Narrative: stable exam with stable labs and will ask pt to call pcp in am to clarify meds Resp/SOB HPI - General Chief Complaint: Shortness of Breath/Dyspnea Stated Complaint: SOA Time Seen by Provider: 03/24/21 21:00 Mode of Arrival: EMS Source of Information: Patient, EMS, Medical Record Limitations: No Limitations Description of Symptoms (Recalled from ER Triage Doc. by RN): Pt c/o SOA that started tonight at dinner. Pt reports he has taken all
[2021-03-24 22:48] VITALS: PULSE 101; PULSE 103
[2021-03-25 00:08] VITALS: BP 134/75; PULSE 99; RESP 20; TEMP 36.8; O2SAT 96
== END 2021-03-25 00:09 | disposition home or self-care (01) ==
PROVIDERS: Emergency Provider Emergency Medicine; PCP Family Medicine
DX: J44.1 Chronic obstructive pulmonary disease with (acute) exacerbation (principal); I50.9 Heart failure, unspecified; I10 Essential (primary) hypertension; E78.5 Hyperlipidemia, unspecified; I48.91 Unspecified atrial fibrillation; K21.9 Gastro-esophageal reflux disease without esophagitis; F41.8 Other specified anxiety disorders; E11.9 Type 2 diabetes mellitus without complications; Z79.899 Other long term (current) drug therapy
CPT/HCPCS: 71046; 80053; 83880; 84145; 84484; 85025; 85651; 86140; 93005; 96374; 99283

== ENCOUNTER 2021-04-02 12:13 | Observation (INO) | payer MEDICARE, MEDICAID, SELFPAY ==
[2021-04-02] VITALS (15 sets, daily range): BP systolic 105–178; BP diastolic 53–94; PULSE 78–99; RESP 15–20; TEMP 36.6–37.1; O2SAT 92–100; BMI 47.0; BMI 51.7
--- NOTE | 2021-04-02 12:14 | CT_ITS ---
PROCEDURE: CT HEAD/BRAIN WO CON CLINICAL INDICATION: stroke protocol COMPARISON: CT CT HEAD/BRAIN WO CON from 02/03/2021 TECHNIQUE: Axial images obtained. All CT scans at the facility use one or more dose reduction, viz: automated exposure control, ma/kV adjustment per patient size (including targeted exams where dose is matched to indication, i.e. head), or iterative reconstruction technique. FINDINGS: No midline shift, mass effect, intracranial hemorrhage, hydrocephalus, or extra-axial fluid collection is evident. The sylvian fissures and cortical sulci are mildly prominent. The left orbit is totally opaque suggesting posttraumatic trauma and deformity. The calvarium has an unremarkable appearance. No mastoid effusion. No sinus air-fluid level. IMPRESSION: No acute intracranial finding Dictated by: Dr. Tarik Montalvo MD 04/02/2021 12:39 Dr. Tarik Montalvo MD in [place] 04/02/2021 12:39
--- NOTE | 2021-04-02 12:15 | PC.NURSE ---
Called CT for stroke protocol.
--- NOTE | 2021-04-02 12:15 | PC.NURSE ---
rad notified of ct head order, stroke protocol
--- NOTE | 2021-04-02 12:18 | CT_ITS ---
PROCEDURE INFORMATION: Exam: CT Abdomen And Pelvis Without Contrast Exam date and time: 04/02/2021 12:18 PM Age: 51 years old Clinical indication: Abdominal pain; Additional info: Abd pain TECHNIQUE: Imaging protocol: Computed tomography of the abdomen and pelvis without contrast. Radiation optimization: All CT scans at this facility use at least one of these dose optimization techniques: automated exposure control; mA and/or kV adjustment per patient size (includes targeted exams where dose is matched to clinical indication); or iterative reconstruction. COMPARISON: CT ABDOMEN PELVIS W CON 03/20/2021 3:43 PM FINDINGS: Lungs: Atelectasis in the lingula Liver: Hepatic steatosis Gallbladder and bile ducts: Normal. No calcified stones. No ductal dilation. Pancreas: Normal. No ductal dilation. Spleen: Splenomegaly 15 cm. Adrenal glands: Normal. No mass. Kidneys and ureters: Normal. No hydronephrosis. Stomach and bowel: Unremarkable. No obstruction. No mucosal thickening. Appendix: Normal appendix Intraperitoneal space: Unremarkable. No free air. No significant fluid collection. Vasculature: Unremarkable. No abdominal aortic aneurysm. Lymph nodes: Pathologic retroperitoneal node 19.7 by 15.8 mm. Series 3, image 54. Enlarged node in the small bowel mesentery 2.94 by 2.07 cm. Increased in size from 2.7 x 1.5 cm on March 20 Series 3, image 50. Additional node 2.47 by 1.8 cm. Image 53. . Increased in size from 2.4 by 1.2 cm. Urinary bladder: Unremarkable as visualized. Reproductive: Unremarkable as visualized. Bones/joints: Unremarkable. No acute fracture. Soft tissues: Unremarkable. IMPRESSION: 1. Pathologic retroperitoneal node 19.7 by 15.8 mm. Series 3, image 54. 2. Enlarged node in the small bowel mesentery 2.94 by 2.07 cm. Increased in size from 2.7 x 1.5 cm on March 20 Series 3, image 50. Additional node 2.47 by 1.8 cm. Image 53. . Increased in size from 2.4 by 1.2 cm. Nonspecific findings that may represent inflammation or infection, lymphoma, leukemia, early metastatic disease 3. Splenomegaly 15 cm. Differential diagnosis of splenomegaly is lymphoma/leukemia, mononucleosis, hemolytic anemia, portal hypertension.
--- NOTE | 2021-04-02 12:18 | CT_ITS ---
PROCEDURE: CT LUMBAR SPINE WO CON CLINICAL HISTORY: pain COMPARISON: CT CT LUMBAR SPINE WO CON from 02/03/2021 TECHNIQUE: Axial images obtained with sagittal and coronal reformats. All CT scans at the facility use one or more dose reduction, viz: automated exposure control, ma/kV adjustment per patient size (including targeted exams where dose is matched to indication, i.e. head), or iterative reconstruction technique. FINDINGS: There is normal curvature and alignment. All lumbar vertebrae appear intact. The spinal canal is normal in size throughout except for borderline bony spinal stenosis at the L 4 5 level with AP diameter of the spinal canal at 13 mm. The L1-2, L2-3 and L3-4 discs all appear normal. There is mild diffuse disc bulge at the L4-5 level resulting in mild neural foraminal narrowing bilaterally. Similar diffuse disc bulges seen at L5-S1 with bilateral neural foraminal narrowing. The SI joints appear normal. IMPRESSION: Findings as described showing little if any interval change from the previous CT scan of the lumbar spine 02/03/2021, mild diffuse disc bulges L4-5 and L5-S1 and borderline bony spinal stenosis at the L4-5 level. Dictated by: Dr. Tarik Montalvo MD 04/02/2021 12:57 Dr. Tarik Montalvo MD in [place] 04/02/2021 12:57
[2021-04-02 12:26] LABS: Basophils # 0.1 K/mm3 (0-0.2); Basophils % 0.6 % (0.1-2.0); Eosinophils # 0.4 K/mm3 (0.0-0.4); Eosinophils % 4.9 % (0.1-12.0); Hematocrit 34.5 % (42.0-52.0); Lymphocytes # 1.3 K/mm3 (0.7-4.5); Lymphocytes % 16.7 % (10-50); Mean Corpuscular Hemoglobin 22.7 pg (27.0-31.2); Mean Corpuscular Volume 78.3 fl (80-94); Mean Platelet Volume 6.9 fl (7.4-10.4); Monocytes # 0.6 K/mm3 (0.1-1.0); Monocytes % 7.9 % (1.7-9.3); Neutrophils # 5.4 K/mm3 (1.8-7.8); Neutrophils % 69.9 % (37.0-80.0); Platelet Count 368 K/mm3 (142-424); Red Cell Distribution Width 16.3 % (11.5-17.5); White Blood Count 7.7 K/mm3 (4.8-10.8)
[2021-04-02 12:29] LABS: Chloride 95 mmol/L (98-107); Potassium 5.1 mmoL/L (3.5-5.1); Sodium 136 mmol/L (136-145)
[2021-04-02 12:31] LABS: Alanine Aminotransferase 66 U/L (12-78); Aspartate Amino Transferase 76 U/L (17-59); Blood Urea Nitrogen 37 mg/dl (9-20); Creatinine Clearance Estimated 55 mL/min (50-200); Estimated Glomerular Filt Rate 50 ml/min (>60); GFR (African American) 60 ML/MIN (>60)
[2021-04-02 12:32] LABS: Albumin/Globulin Ratio 1.3 (1.1-1.8); Alkaline Phosphatase 194 U/L (38-126); Anion Gap 15.1 mEq/L (5-15); Bilirubin,Total 0.2 mg/dl (0.2-1.3); Calcium 8.9 mg/dl (8.4-10.2); Carbon Dioxide 31 mmol/L (22.0-30.0); Globulin 3.1 g/dL (1.3-3.2); Lipase 312 U/L (23-300); Total Protein,Serum 7.1 g/dl (6.3-8.2)
[2021-04-02 12:36] LABS: Glucose 467 mg/dl (74-100)
--- NOTE | 2021-04-02 12:38 | HMH.EDGENADL ---
ED Disposition Clinical Impression: DKA (diabetic ketoacidosis) Qualifiers: Diabetes mellitus type: type 1 Diabetes mellitus complication detail: without coma Qualified Code(s): E10.10 - Type 1 diabetes mellitus with ketoacidosis without coma Acute lumbar myofascial strain Qualifiers: Encounter type: initial encounter Qualified Code(s): S39.012A - Strain of muscle, fascia and tendon of lower back, initial encounter Disposition: Admitted As Inpatient Condition on Discharge: Fair Referrals: Bert Villagomez MD [Primary Care Provider] - - Critical Care Critical Care Time: No Attestation: On 04/02/21, the high probability of a clinically significant, sudden or life threatening deterioration of the following system(s) required my full and direct attention, intervention and personal management. The time I documented below is in addition to time spent performing reported procedures but includes the following listed in this critical care notation. Medical Decision Making - Medical Records Medical records reviewed: Yes: I reviewed the patient's medical records. - Fahad Inquiry Pt receiving controlled substance: No Vital Signs: 04/02/21 12:06 Respiratory Rate 20 02 Sat by Pulse Oximetry 95 Oxygen Delivery Method Nasal Cannula Oxygen Flow Rate (LPM) 3 - Lab Data Lab Results 04/02/21 12:09: WBC 7.7, RBC 4.40 L, Hgb 10.0 L, Hct 34.5 L, MCV 78.3 L, MCH 22.7 L, MCHC 29.0 L, RDW 16.3, Plt Count 368, MPV 6.9 L, Neut % (Auto) 69.9, Lymph % (Auto) 16.7, [place] % (Auto) 7.9, Eos % (Auto) 4.9, Baso % (Auto) 0.6, Neut # (Auto) 5.4, Lymph # (Auto) 1.3, [place] # (Auto) 0.6, Eos # (Auto) 0.4, Baso # (Auto) 0.1 04/02/21 12:09: Sodium 136, Potassium 5.1, Chloride 95 L, Carbon Dioxide 31 H, Anion Gap 15.1 H, BUN 37 H, Creatinine 1.50 H, Estimated Creat Clear 55, Estimated GFR 50 L, Est GFR ( Amer) 60, Glucose 467 H*, Calcium 8.9, Total Bilirubin 0.2, AST 76 H, ALT 66, Alkaline Phosphatase 194 H, Troponin I < 0.01, NT-Pro-B Natriuret Pep 29.0, Total Protein 7.1, Albumin 4.0, Globulin 3.1, Albumin/Globulin Ratio 1.3, Lipase 312 H, Acetone Level Detected 04/02/21 12:38: Specimen Source Left radial, O2 % 3.5lpm nc, ABG pH 7.32 L, ABG pCO2 52.4 H, ABG pO2 98.5, ABG HCO3 26.6 H, ABG Total CO2 28.2 H, ABG O2 Saturation 97, ABG Base Excess 0.6, Mj Test Acceptable Result diagrams: 04/02/21 12:09 04/02/21 12:09 Orders (Tests/Meds): ED MEDICATIONS Generic Name Dose Route Start Last Admin Trade Name Freq PRN Reason Stop Dose Admin Sodium Chloride 1,000 mls @ 150 mls/hr 04/02/21 14:45 Sod Chlor 0.9% 1000ml Bag IV 05/02/21 14:44 .Q6H40M [facility] Insulin Human Regular 100 unit 101 mls @ 10.1 mls/hr 04/02/21 14:45 / Sodium Chloride IV 05/02/21 14:44 .Q10H CARLIN Protocol 10 UNITS/HR Discontinued Medications Generic Name Dose Route Start Last Admin Trade Name Freq PRN Reason Stop Dose Admin Sodium Chloride 1,000 mls @ 999 mls/hr 04/02/21 12:45 Sod Chlor 0.9% 1000ml Bag IV 04/02/21 13:45 .Q1H1M [facility] Insulin Human Regular 10 unit 04/02/21 12:42 04/02/21 13:49 Insulin Human Regular 100 Units/Ml 10ml Vial IVP 04/02/21 12:43 10 unit ONCE ONE Administration Morphine Sulfate 4 mg 04/02/21 12:42 04/02/21 13:49 Morphine 4mg/Ml Syringe IV 04/02/21 12:43 4 mg ONCE ONE Administration ORDERS Category Date Time Status Basic Metabolic Panel Q12H Lab 04/03/21 06:00 Ordered Basic Metabolic Panel Q12H Lab 04/03/21 18:00 Ordered Basic Metabolic Panel Q12H Lab 04/04/21 06:00 Ordered Basic Metabolic Panel Q4H Lab 04/02/21 14:45 Ordered Basic Metabolic Panel Q4H Lab 04/02/21 18:45 Ordered Basic Metabolic Panel Q4H Lab 04/02/21 22:45 Ordered Basic Metabolic Panel Q4H Lab 04/03/21 02:45 Ordered Glucose,Random Q1H Lab 04/02/21 14:45 Ordered Glucose,Random Q1H Lab 04/02/21 15:45 Ordered Glucose,Random Q1H Lab 04/02/21 16:45 Ordered Glucose,Random Q1H Lab 04/02/21 17:45 O
[2021-04-02 12:45] LABS: Troponin I < 0.01 ng/ml (0.00-0.034)
--- NOTE | 2021-04-02 12:45 | PC.NURSE ---
Addendum entered by Thao Hill RN 04/02/21 12:50: notified ER Original Note: glucose 467
--- NOTE | 2021-04-02 12:53 | PC.NURSE ---
notified RT of abg order
[2021-04-02 13:22] LABS: ABG Base Excess 0.6 mmol/L (-2.4-2.3); ABG HCO3 26.6 mmhg (22.0-26.0); ABG Oxygen Saturation 97 % (90-100); ABG PH 7.32 mmol/L (7.35-7.45); ABG PO2 98.5 mmhg (80-100); ABG TCO2 28.2 mmhg (23-27)
[2021-04-02 13:26] LABS: ABG PCO2 52.4 mmhg (35.0-45.0); Allen's Test Acceptable; Source Left Radial
--- NOTE | 2021-04-02 13:59 | PC.NURSE ---
Received call from lab for critical results. co2 52, ph 7.32, and bicarb 26. Notified
[2021-04-02 14:08] LABS: Acetone, Serum (Rapid) Detected (None Detect)
--- NOTE | 2021-04-02 14:29 | PC.NURSE ---
on the phone with .
[2021-04-02 14:34] LABS: Microscopic, Urine URINE MICROSCOPIC (MICROSCOPIC)
[2021-04-02 14:35] LABS: Appearance,Urine CLEAR (Clear); Bilirubin,Urine Negative (Negative); Blood, Urine Negative (Negative); Color,Urine YELLOW (Yellow); Glucose,Urine (UA) 3+ (Negative); Ketones,Urine Negative (Negative); Leukocyte Esterase,Urine Negative (Negative); Nitrate,Urine Negative (Negative); Protein,Urine 1+ (Negative); Urobilinogen,Urine 0.2 EU/dl (0.2)
--- NOTE | 2021-04-02 14:38 | PC.NURSE ---
Checked on pt stable in bed resting. Will continue to monitor.
[2021-04-02 14:42] LABS: POC Glucose,Bedside 426 (70-110)
[2021-04-02 14:54] LABS: Bacteria,Urine Trace /lpf
[2021-04-02 15:04] LABS: Coronavirus 19, PCR Not Detected (NotDetected); Influenza A, PCR Not Detected (NotDetected); Influenza B, PCR Not Detected (NotDetected)
[2021-04-02 15:16] LABS: Chloride 97 mmol/L (98-107); Potassium 5.3 mmoL/L (3.5-5.1); Sodium 138 mmol/L (136-145)
[2021-04-02 15:19] LABS: Anion Gap 17.3 mEq/L (5-15); Blood Urea Nitrogen 37 mg/dl (9-20); Carbon Dioxide 29 mmol/L (22.0-30.0); Creatinine Clearance Estimated 59 mL/min (50-200); Estimated Glomerular Filt Rate 54 ml/min (>60); GFR (African American) 65 ML/MIN (>60)
[2021-04-02 15:21] LABS: Amphetamine/Metha Screen,Urine Negative ng/ml (<1000); Benzodiazepines Screen,Urine Negative ng/ml (<200)
[2021-04-02 15:22] LABS: Barbiturates Screen,Urine Negative ng/ml (<200); Cannabinoid Screen,Urine Negative ng/ml (<50)
[2021-04-02 15:23] LABS: Cocaine Screen,Urine Negative ng/ml (<300)
[2021-04-02 15:24] LABS: Glucose 425 mg/dl (74-100)
[2021-04-02 15:24] LABS: Methadone Screen,Urine Negative ng/ml (<300); Opiate Screen,Urine Negative ng/ml (<300)
[2021-04-02 15:25] LABS: Glucose,Random 425 mg/dL (74-100)
[2021-04-02 15:25] LABS: Phencyclidine Screen,Urine Negative ng/ml (<25)
--- NOTE | 2021-04-02 15:31 | PC.NURSE ---
care management was called. No answer
--- NOTE | 2021-04-02 16:01 | PC.NURSE ---
Deni said Pt will be boarding in ER until shift change
[2021-04-02 16:07] LABS: Glucose,Random 423 mg/dL (74-100)
[2021-04-02 16:14] LABS: Troponin I < 0.01 ng/ml (0.00-0.034)
--- NOTE | 2021-04-02 17:11 | PC.NURSE ---
MIRTHA CARLISLE stated okay to get a fingerstick at this time instead random glucose level.
[2021-04-02 17:17] LABS: POC Glucose,Bedside 424 (70-110)
--- NOTE | 2021-04-02 17:46 | PC.NURSE ---
Ordered pt diabetic diet tray. Given to pt. Spoke with ER MD verbally ordered increase insulin drop to 12units/hr from 10units/hr.
--- NOTE | 2021-04-02 18:14 | PC.NURSE ---
ER states he wants q1h fingersticks not random glucose blood drawers q1h. I have changed these orders in the computer per ER MD verbal order at this time
[2021-04-02 18:19] LABS: POC Glucose,Bedside 346 (70-110)
[2021-04-02 18:39] LABS: Chloride 96 mmol/L (98-107); Potassium 4.6 mmoL/L (3.5-5.1); Sodium 137 mmol/L (136-145)
[2021-04-02 18:42] LABS: Blood Urea Nitrogen 37 mg/dl (9-20); Creatinine Clearance Estimated 61 mL/min (50-200); Estimated Glomerular Filt Rate 58 ml/min (>60); GFR (African American) 71 ML/MIN (>60)
[2021-04-02 18:43] LABS: Anion Gap 15.6 mEq/L (5-15); Calcium 8.6 mg/dl (8.4-10.2); Carbon Dioxide 30 mmol/L (22.0-30.0); Glucose 345 mg/dl (74-100)
--- NOTE | 2021-04-02 18:47 | HMH.HP ---
*Admission Date: 04/02/21 *Chief complaint: dka *History of present illness: Patient is a 51-year-old white male, known to me from the office, presented to the emergency room with complaints of significant back pain, right sciatica, right leg numbness. His work-up included CT imaging studies of the lumbar spine, abdomen, and brain. Images of the lumbar spine were largely unchanged from previous findings. Images of the brain were normal. Images of the abdomen revealed several intra-abdominal lymph nodes which had shown an interval increase in size. These were considered nonspecific but could represent infection inflammation neoplastic disease or lymphoma. An outpatient evaluation by oncology would be appropriate in this setting. His abdomen is obese, rotund, but without focal discomfort. Splenomegaly was also demonstrated by CT imaging, but habitus precludes palpation of organs or masses. Labs were done, troponin was negative. Blood sugar was markedly elevated exceeding 400 and ketones were detected. Patient has a history of poorly controlled diabetes, noncompliance, and ocular complications. He also has diabetic neuropathy. His gap was 17.6, pH on ABG was 7.32, reaction was unremarkable, Covid was negative. Patient has a history of substance abuse, delirium likely related to bath salts. Patient has obstructive sleep apnea, uses CPAP at night. Does not bleed in oxygen. [facility] History Medical History: Reports:: Anxiety, Atrial Fibrillation, Congestive Heart Failure, Congenital Heart Disease, Coronary Artery Disease, Depression, Diabetes Mellitus Type 2, Gastroesophageal Reflux Disease(GERD), Hyperlipidemia, Hypertension, Renal Disease Denies:: Cancer, Diabetes Mellitus Type 1, MRSA *Have you ever received a pneumonia vaccine?: No *Have you received a flu vaccine this season?: No Other Surgeries: Yes: No Previous Surgery, Angiogram, Cardiac Catheterization Amputation: No Fractures: Yes - *Social History Last grade of school completed: High school graduate Smoking Status: Former smoker Tobacco Type: smokeless tobacco Alcohol Intake: never Alcohol Intake Frequency:: 3 or more drinks per day Substance Use Type: denies use *Occupational Status:: disabled Household Members: family *Travel in the last 8 weeks: None - Psychiatric History Pschychiatric History:: Reports:: Anxiety, Depression Family Hx:: Heart Attack, Hypertension, Substance abuse, Alcoholism Review of Systems - Constitutional Reports lack of energy - Eyes Reports blind spots, Reports blurry vision, Reports change in vision - ENT Denies abnormal hearing - *Cardiovascular Denies chest pain - *Respiratory Denies chest congestion - *Gastrointestinal Denies abdominal pain - *Genitourinary Denies difficulty urinating - *Musculoskeletal Reports abnormal walking, Reports joint pain, Reports decreased muscle mass, Reports back pain, Reports muscle weakness, Reports numbness, Reports radiating pain into limb, Reports tingling - Integumentary/Breasts Reports change in skin color, Reports sores, Denies yellowing of the skin - *Neurologic Reports abnormal walking, Reports burning sensations, Reports numbness, Reports weakness - Psychiatric Reports lack of enjoyment, Reports depression - Endocrine Reports increased thirst, Denies cold intolerance - Hematologic/Lymphatic Denies easy bleeding - Allergic/Immunologic Denies hives Meds Home Medications Medication Instructions Recorded Confirmed Type aspirin 81 mg tablet,delayed 81 mg PO DAILY tab 10/27/17 03/22/21 History release bupropion HCl (smoking deter) 150 150 mg PO BID 01/18/21 03/22/21 History mg tablet,12 hr sustained-release(smoking deterrent) cholecalciferol (vitamin D3) 1,250 1,250 mcg PO WEEKLY 01/18/21 03/22/21 History mcg (50,000 unit) capsule umeclidinium 62.5 mcg-vilanterol 1 inh INHALATION DAILY 01/18/21 03/22/21 History 25 mcg/actuation powdr for
--- NOTE | 2021-04-02 18:55 | PC.NURSE ---
Pt has 3 bottle of medications that he brought in on his person. They are norco, ativan, and the third bottle is a mixture of pills. I am placing them in a biohazard bag with a pt label.
[2021-04-02 18:57] LABS: Troponin I < 0.01 ng/ml (0.00-0.034)
[2021-04-02 19:19] LABS: POC Glucose,Bedside 374 (70-110)
--- NOTE | 2021-04-02 19:25 | PC.NURSE ---
Spoke with Fifi John to give report on pt.
[2021-04-02 19:45] LABS: Chloride 96 mmol/L (98-107)
[2021-04-02 19:46] LABS: Potassium 4.6 mmoL/L (3.5-5.1); Sodium 136 mmol/L (136-145)
[2021-04-02 19:49] LABS: Anion Gap 14.6 mEq/L (5-15); Blood Urea Nitrogen 38 mg/dl (9-20); Calcium 8.7 mg/dl (8.4-10.2); Carbon Dioxide 30 mmol/L (22.0-30.0); Creatinine Clearance Estimated 61 mL/min (50-200); Estimated Glomerular Filt Rate 58 ml/min (>60); GFR (African American) 71 ML/MIN (>60); Glucose 337 mg/dl (74-100)
[2021-04-02 19:50] LABS: Acetone, Serum (Rapid) None Detected (None Detect)
--- NOTE | 2021-04-02 19:51 | PC.NURSE ---
PT ARRIVED TO FLOOR VIA STRETCHER FROM ED W/STAFF AT 1950
[2021-04-03] VITALS (8 sets, daily range): BP systolic 129–178; BP diastolic 76–99; PULSE 79–111; RESP 16–19; TEMP 36.4–37; O2SAT 92–97
[2021-04-03 01:30] LABS: POC Glucose,Bedside 328 (70-110)
[2021-04-03 01:30] LABS: POC Glucose,Bedside 313 (70-110)
[2021-04-03 01:30] LABS: POC Glucose,Bedside 315 (70-110)
[2021-04-03 01:30] LABS: POC Glucose,Bedside 322 (70-110)
[2021-04-03 01:30] LABS: POC Glucose,Bedside 332 (70-110)
--- NOTE | 2021-04-03 06:59 | PC.NURSE ---
pt pleasant at beginning of shift, but had some confusion, could state name and birthday, has become increasingly agitated t/o shift, has complained of pain and was treated per AUG, requested a guest tray for breakfast however no guest is present, has wanted coffee all night and has become impatient with staff at times, remains on 2L NC, CPAP delivered from home, however it was not in working condition, family has called multiple times to check the condition of patient
[2021-04-03 07:17] LABS: Basophils # 0.1 K/mm3 (0-0.2); Basophils % 0.7 % (0.1-2.0); Eosinophils # 0.5 K/mm3 (0.0-0.4); Eosinophils % 6.2 % (0.1-12.0); Hematocrit 32.3 % (42.0-52.0); Hemoglobin 9.5 g/dL (14.1-18.0); Lymphocytes # 1.3 K/mm3 (0.7-4.5); Lymphocytes % 15.6 % (10-50); Mean Corpuscular HGB Conc 29.3 g/dL (31.8-35.4); Mean Corpuscular Hemoglobin 22.2 pg (27.0-31.2); Mean Corpuscular Volume 75.8 fl (80-94); Mean Platelet Volume 7.8 fl (7.4-10.4); Monocytes # 0.7 K/mm3 (0.1-1.0); Monocytes % 8.3 % (1.7-9.3); Neutrophils # 5.9 K/mm3 (1.8-7.8); Neutrophils % 69.3 % (37.0-80.0); Platelet Count 369 K/mm3 (142-424); Red Blood Count 4.26 M/mm3 (4.60-6.20); Red Cell Distribution Width 16.8 % (11.5-17.5); White Blood Count 8.5 K/mm3 (4.8-10.8)
[2021-04-03 07:26] LABS: Chloride 95 mmol/L (98-107); Potassium 4.9 mmoL/L (3.5-5.1); Sodium 135 mmol/L (136-145)
[2021-04-03 07:29] LABS: Anion Gap 14.9 mEq/L (5-15); Blood Urea Nitrogen 34 mg/dl (9-20); Carbon Dioxide 30 mmol/L (22.0-30.0); Creatinine Clearance Estimated 73 mL/min (50-200); Estimated Glomerular Filt Rate 71 ml/min (>60); GFR (African American) 86 ML/MIN (>60)
[2021-04-03 07:30] LABS: Calcium 8.7 mg/dl (8.4-10.2); Glucose 385 mg/dl (74-100)
[2021-04-03 07:43] LABS: Acetone, Serum (Rapid) None Detected (None Detect)
[2021-04-03 07:47] LABS: POC Glucose,Bedside 372 (70-110)
[2021-04-03 07:47] LABS: POC Glucose,Bedside 397 (70-110)
[2021-04-03 07:47] LABS: POC Glucose,Bedside 348 (70-110)
[2021-04-03 07:47] LABS: POC Glucose,Bedside 330 (70-110)
--- NOTE | 2021-04-03 09:08 | HMH.PHAVTE ---
[facility] VTE Monitoring - Patient Demographics Admission date: 04/02/21 Report Date: 04/03/21 Time: 09:08 Allergies/Adverse Reactions: Patient Allergies pregabalin [From Lyrica] Adverse Reaction (Verified 04/02/21 23:52) made skin crawl Height: 1.7 m Weight: 136 kg Patient Problems: Current Active Problems Hyperglycemia due to diabetes mellitus (Chronic) Acute lumbar myofascial strain (Acute) COPD (chronic obstructive pulmonary disease) (Chronic) Lumbar radicular pain (Chronic) Visual disturbance (Chronic) DKA (diabetic ketoacidosis) (Acute) Cellulitis (Acute) Smoker (Chronic) Diabetes mellitus (Chronic) HTN (hypertension) (Chronic) Diabetic retinopathy (Chronic) Polyneuropathy (Chronic) Neuropathy (Chronic) - VTE Risk Labs: VTE Related Lab Results Hgb 9.5 g/dL (14.1-18.0) L 04/03/21 06:41 Hct 32.3 % (42.0-52.0) L 04/03/21 06:41 Plt Count 369 K/mm3 (142-424) 04/03/21 06:41 BUN 34 mg/dl (9-20) H 04/03/21 06:41 Creatinine 1.10 mg/dl (0.66-1.25) 04/03/21 06:41 Estimated Creat Clear 73 mL/min (50-200) 04/03/21 06:41 Was VTE Risk Assessment Performed: Yes VTE Score: 10 VTE Risk Level: Moderate Risk - Prophylaxis VTE Prophylaxis Ordered?: Yes Types of VTE Prophylaxis: TEDS Knee High, Pharmacological Location of Applied Device: Bilateral Lower Extremeties Pharmacologic Type: Enoxaparin
--- NOTE | 2021-04-03 10:01 | HMH.ACPN2 ---
Internal Medicine - PN: Subj *Date: 04/03/21 *Time: 10:01 Interval history: better this am as he is of insulin drip - no specific c/o Exam Vital signs and Labs for Last 24 Hours: Temp Pulse Resp BP Pulse Ox 98.1 F 111 H 16 159/99 H 94 L 04/03/21 08:00 04/03/21 08:00 04/03/21 08:00 04/03/21 08:00 04/03/21 08:00 Laboratory Results - last 24 hr 04/02/21 12:09: WBC 7.7, RBC 4.40 L, Hgb 10.0 L, Hct 34.5 L, MCV 78.3 L, MCH 22.7 L, MCHC 29.0 L, RDW 16.3, Plt Count 368, MPV 6.9 L, Neut % (Auto) 69.9, Lymph % (Auto) 16.7, [place] % (Auto) 7.9, Eos % (Auto) 4.9, Baso % (Auto) 0.6, Neut # (Auto) 5.4, Lymph # (Auto) 1.3, [place] # (Auto) 0.6, Eos # (Auto) 0.4, Baso # (Auto) 0.1 04/02/21 12:09: Sodium 136, Potassium 5.1, Chloride 95 L, Carbon Dioxide 31 H, Anion Gap 15.1 H, BUN 37 H, Creatinine 1.50 H, Estimated Creat Clear 55, Estimated GFR 50 L, Est GFR ( Amer) 60, Glucose 467 H*, Calcium 8.9, Total Bilirubin 0.2, AST 76 H, ALT 66, Alkaline Phosphatase 194 H, Troponin I < 0.01, NT-Pro-B Natriuret Pep 29.0, Total Protein 7.1, Albumin 4.0, Globulin 3.1, Albumin/Globulin Ratio 1.3, Lipase 312 H, Acetone Level Detected 04/02/21 12:09: Hemoglobin A1c 11.0 H 04/02/21 12:38: Specimen Source Left radial, O2 % 3.5lpm nc, ABG pH 7.32 L, ABG pCO2 52.4 H, ABG pO2 98.5, ABG HCO3 26.6 H, ABG Total CO2 28.2 H, ABG O2 Saturation 97, ABG Base Excess 0.6, Mj Test Acceptable 04/02/21 14:23: Urine Color Yellow, Urine Appearance Clear, Urine pH 6.0, Ur Specific [place] 1.020, Urine Protein 1+, Urine Glucose (UA) 3+, Urine Ketones Negative, Urine Blood Negative, Urine Nitrate Negative, Urine Bilirubin Negative, Urine Urobilinogen 0.2, Ur Leukocyte Esterase Negative, Urine Bacteria Trace 04/02/21 14:23: Urine Opiates Screen Negative, Urine Methadone Screen Negative, Ur Barbituates Screen Negative, Ur Phencyclidine Scrn Negative, Ur Amphetamines Screen Negative, U Benzodiazepines Scrn Negative, Urine Cocaine Screen Negative, U Marijuana (THC) Screen Negative 04/02/21 14:33: POC Glucose 426 H* 04/02/21 14:46: SARS-CoV-2 (PCR) Not detected, Influenza A Untype (PCR) Not detected, Influenza Type B (PCR) Not detected 04/02/21 14:55: Sodium 138, Potassium 5.3 H, Chloride 97 L, Carbon Dioxide 29, Anion Gap 17.3 H, BUN 37 H, Creatinine 1.40 H, Estimated Creat Clear 59, Estimated GFR 54 L, Est GFR ( Amer) 65, Glucose 425 H*, Random Glucose 425 H* D, Calcium 9.0 04/02/21 15:43: Troponin I < 0.01 04/02/21 15:43: Random Glucose 423 H* 04/02/21 17:09: POC Glucose 424 H* 04/02/21 18:11: POC Glucose 346 H* 04/02/21 18:19: Sodium 137, Potassium 4.6, Chloride 96 L, Carbon Dioxide 30, Anion Gap 15.6 H, BUN 37 H, Creatinine 1.30 H, Estimated Creat Clear 61, Estimated GFR 58 L, Est GFR ( Amer) 71, Glucose 345 H, Calcium 8.6, Troponin I < 0.01 04/02/21 19:12: POC Glucose 374 H* 04/02/21 19:34: Sodium 136, Potassium 4.6, Chloride 96 L, Carbon Dioxide 30, Anion Gap 14.6, BUN 38 H, Creatinine 1.30 H, Estimated Creat Clear 61, Estimated GFR 58 L, Est GFR ( Amer) 71, Glucose 337 H, Calcium 8.7, Acetone Level None detected 04/02/21 20:02: POC Glucose 313 H* 04/02/21 21:02: POC Glucose 328 H* 04/02/21 22:10: POC Glucose 332 H* 04/02/21 22:59: POC Glucose 315 H* 04/02/21 23:56: POC Glucose 322 H* 04/03/21 01:08: POC Glucose 330 H* 04/03/21 02:04: POC Glucose 348 H* 04/03/21 03:08: POC Glucose 372 H* 04/03/21 06:24: POC Glucose 397 H* 04/03/21 06:41: Acetone Level None detected 04/03/21 06:41: Sodium 135 L, Potassium 4.9, Chloride 95 L, Carbon Dioxide 30, Anion Gap 14.9, BUN 34 H, Creatinine 1.10, Estimated Creat Clear 73, Estimated GFR 71, Est GFR ( Amer) 86 D, Glucose 385 H, Calcium 8.7 04/03/21 06:41: WBC 8.5, RBC 4.26 L, Hgb 9.5 L, Hct 32.3 L, MCV 75.8 L, MCH 22.2 L, MCHC 29.3 L, RDW 16.8, Plt Count 369, MPV 7.8, Neut % (Auto) 69.3, Lymph % (Auto) 15.6, [place] % (Auto) 8.3, Eos % (Auto) 6.2, Baso % (Auto) 0.7, Neut # (Auto) 5.9, Lymph # (Auto) 1.3, [place] # (Auto) 0.7, Eos # (
--- NOTE | 2021-04-03 10:55 | HMH.PHAINT ---
MEDICATION RECONCILIATION COMPLETED ON PATIENT USING EXTERNAL FILL HISTORY FROM PHARMACY AND DISCHARGE SUMMARY FROM PREVIOUS ADMISSION. -ANUP TOWNSENDD
--- NOTE | 2021-04-03 15:39 | PC.NURSE ---
Patient has been alert and oriented x4 this shift, has been cooperative with plan of care, has been up to chair and on side of bed for most of the day, showered this shift, has been treated for pain per emar x1 this shift, remains on 2LNC, vss, no s/s of distress noted, will continue to monitor.
[2021-04-03 18:03] LABS: Chloride 94 mmol/L (98-107); Sodium 136 mmol/L (136-145)
[2021-04-03 18:04] LABS: Potassium 4.3 mmoL/L (3.5-5.1)
[2021-04-03 18:06] LABS: Blood Urea Nitrogen 25 mg/dl (9-20); Creatinine Clearance Estimated 73 mL/min (50-200); Estimated Glomerular Filt Rate 71 ml/min (>60); GFR (African American) 86 ML/MIN (>60)
[2021-04-03 18:07] LABS: Anion Gap 15.3 mEq/L (5-15); Carbon Dioxide 31 mmol/L (22.0-30.0); Glucose 325 mg/dl (74-100)
[2021-04-03 22:20] LABS: POC Glucose,Bedside 334 (70-110)
[2021-04-03 22:20] LABS: POC Glucose,Bedside 398 (70-110)
[2021-04-03 22:20] LABS: POC Glucose,Bedside 350 (70-110)
[2021-04-04] VITALS: BP 140/84; PULSE 89; RESP 13; TEMP 36.8; O2SAT 97
[2021-04-04 04:02] VITALS: BP 144/88; PULSE 77; RESP 16; TEMP 36.7; O2SAT 95
[2021-04-04 04:38] LABS: POC Glucose,Bedside 384 (70-110)
[2021-04-04 04:47] VITALS: BMI 47.0
[2021-04-04 06:37] VITALS: O2SAT 100
[2021-04-04 08:04] VITALS: BP 159/83; RESP 20; TEMP 36.4; O2SAT 98
[2021-04-04 08:20] LABS: Chloride 95 mmol/L (98-107); Potassium 4.7 mmoL/L (3.5-5.1); Sodium 137 mmol/L (136-145)
[2021-04-04 08:22] LABS: Blood Urea Nitrogen 20 mg/dl (9-20); Creatinine Clearance Estimated 89 mL/min (50-200); Estimated Glomerular Filt Rate 89 ml/min (>60); GFR (African American) 108 ML/MIN (>60)
[2021-04-04 08:23] LABS: Anion Gap 16.7 mEq/L (5-15); Carbon Dioxide 30 mmol/L (22.0-30.0)
[2021-04-04 08:58] LABS: Glucose 445 mg/dl (74-100)
--- NOTE | 2021-04-04 11:37 | PC.NURSE ---
Notified, Dr. Marinelli of critical glucose and he is going to let pcp tx. Dr. Villagomez is here at this time and has been made aware of glucose.
[2021-04-04 12:42] LABS: Glucose,Random 406 mg/dL (74-100)
--- NOTE | 2021-04-04 13:05 | PC.NURSE ---
Reported critical blood glucose to Dr. Villagomez. CRISTINA
--- NOTE | 2021-04-04 13:30 | HMH.DCSUM ---
General - General Admission date:: 04/02/21 HPI HPI: Patient is a 51-year-old white male, known to me from the office, presented to the emergency room with complaints of significant back pain, right sciatica, right leg numbness. His work-up included CT imaging studies of the lumbar spine, abdomen, and brain. Images of the lumbar spine were largely unchanged from previous findings. Images of the brain were normal. Images of the abdomen revealed several intra-abdominal lymph nodes which had shown an interval increase in size. These were considered nonspecific but could represent infection inflammation neoplastic disease or lymphoma. An outpatient evaluation by oncology would be appropriate in this setting. His abdomen is obese, rotund, but without focal discomfort. Splenomegaly was also demonstrated by CT imaging, but habitus precludes palpation of organs or masses. Labs were done, troponin was negative. Blood sugar was markedly elevated exceeding 400 and ketones were detected. Patient has a history of poorly controlled diabetes, noncompliance, and ocular complications. He also has diabetic neuropathy. His gap was 17.6, pH on ABG was 7.32, reaction was unremarkable, Covid was negative. Patient has a history of substance abuse, delirium likely related to bath salts. Patient has obstructive sleep apnea, uses CPAP at night. Does not bleed in oxygen. Hospital Course Hospital Course: Patient was admitted, placed on an insulin drip. On initial admission he had markedly elevated blood glucose with positive acetone. He also had an increased gap. His acetone subsequently cleared, blood sugars remained elevated in the 400 range. Patient's baseline is 1 of poor diabetic control. He was found to have wounds both lower extremities, superficial but distant with early cellulitis. This may have been a contributing factor to elevated blood sugar. Patient has chronic intractable low back pain with rightward sciatica. He also has a polyneuropathy due to poorly controlled diabetes. On the day of his discharge he was up in a chair. Had been walking to the bathroom unassisted. He has been eating with no nausea or emesis. He is awake lucid and clear. He is at his baseline mentation. We had seen the patient in the office for continue glucose monitoring, we had placed a veronica sensor behind his left arm. This subsequently fell off. Patient has not been monitoring his sugar and is most likely not been compliant with his insulin. Discussed both of these issues today, he merits a retrial on CGM and may prove a good candidate for an Omni pod glucose pump. Objective Vital signs: Temp Pulse Resp BP Pulse Ox 97.6 F 77 20 159/83 H 98 04/04/21 08:04 04/04/21 04:02 04/04/21 08:04 04/04/21 08:04 04/04/21 08:04 no acute distress, obese, disheveled, cooperative - *Routine HEENT Exam Head: Present: normocephalic Eye: Present: EOMI, PERRL ENT: Present: mucous membranes moist - *Routine Neck Exam Present: supple - *Routine Respiratory Exam Present: CTA bilaterally - *Routine Cardiovascular Exam Present: RRR - *Routine Abdominal Exam Present: soft, normoactive bowel sounds. Absent: tenderness - *Routine Extremities Exam Present: edema - *Routine Skin Exam Present: erythema, lesions. Absent: jaundice Results Labs on day of discharge: Labs from last 24 hours 04/04/21 04/04/21 04/04/21 12:00 07:30 04:28 Sodium 137 Potassium 4.7 Chloride 95 L Carbon Dioxide 30 Anion Gap 16.7 H BUN 20 Creatinine 0.90 Estimated Creat Clear 89 Estimated GFR 89 Est GFR ( Amer) 108 D Glucose 445 H* D POC Glucose 384 H* Random Glucose 406 H* Calcium 9.0 04/03/21 04/03/21 04/03/21 21:38 17:50 16:10 Sodium 136 Potassium 4.3 Chloride 94 L Carbon Dioxide 31 H Anion Gap 15.3 H BUN 25 H D Creatinine 1.10 Estimated Creat Clear 73 E
[2021-04-04 14:12] VITALS: BP 163/82; PULSE 85; RESP 18; TEMP 36.7; O2SAT 96
== END 2021-04-04 14:33 | disposition home or self-care (01) ==
LOC: ER 14:43 → 2ND 18:07
PROVIDERS: Admitting Provider Family Medicine; Emergency Provider Emergency Medicine; PCP Family Medicine; Visit Provider Family Medicine
DX: Z20.822 Contact with and (suspected) exposure to COVID-19; Z79.899 Other long term (current) drug therapy; Z79.4 Long term (current) use of insulin; I11.0 Hypertensive heart disease with heart failure; I50.9 Heart failure, unspecified; I48.91 Unspecified atrial fibrillation; E66.01 Morbid (severe) obesity due to excess calories; Z68.42 Body mass index [BMI] 45.0-49.9, adult; E10.10 Type 1 diabetes mellitus with ketoacidosis without coma; E10.319 Type 1 diabetes mellitus with unspecified diabetic retinopathy without macular edema
CPT/HCPCS: G0378; 36415; 70450; 72131; 74176; 80048; 80053; 80305; 81001; 82009; 82803; 82947; 82962; 83036; 83690; 83880; 84484; 85025; 94640; 96365; 96367; 96375; 96376; 99285; C9803; U0003; U0005

== ENCOUNTER 2021-04-11 11:43 | Emergency (ER) | payer MEDICARE, MEDICAID, SELFPAY ==
[2021-04-11 11:44] VITALS: BP 128/72; PULSE 92; RESP 18; TEMP 36.8; O2SAT 98; BMI 45.6
[2021-04-11 12:05] LABS: Microscopic, Urine URINE MICROSCOPIC (MICROSCOPIC)
[2021-04-11 12:07] LABS: VBG Base Excess -1.5 mmol/L (-2.4-2.3); VBG HCO3 24.5 mmol/L (23-30); VBG Oxygen Saturation 68.8 % (50-70); VBG PCO2 48.2 mmol/L (35-51); VBG PH 7.32 mmol/L (7.31-7.41); VBG PO2 40.7 mmol/L (28-40)
[2021-04-11 12:07] LABS: Appearance,Urine CLEAR (Clear); Bilirubin,Urine Negative (Negative); Blood, Urine Negative (Negative); Color,Urine YELLOW (Yellow); Glucose,Urine (UA) 3+ (Negative); Ketones,Urine Negative (Negative); Leukocyte Esterase,Urine Negative (Negative); Nitrate,Urine Negative (Negative); Protein,Urine TRACE (Negative); Specific Gravity, Urine 1.015 (1.005-1.030); Urobilinogen,Urine 0.2 EU/dl (0.2)
[2021-04-11 12:08] LABS: Basophils % 0.4 % (0.1-2.0); Chloride 95 mmol/L (98-107); Eosinophils # 0.4 K/mm3 (0.0-0.4); Hematocrit 33.8 % (42.0-52.0); Hemoglobin 9.9 g/dL (14.1-18.0); Lymphocytes # 1.3 K/mm3 (0.7-4.5); Lymphocytes % 12.6 % (10-50); Mean Corpuscular HGB Conc 29.2 g/dL (31.8-35.4); Mean Corpuscular Hemoglobin 22.6 pg (27.0-31.2); Mean Corpuscular Volume 77.5 fl (80-94); Mean Platelet Volume 8.6 fl (7.4-10.4); Monocytes # 0.5 K/mm3 (0.1-1.0); Monocytes % 4.7 % (1.7-9.3); Neutrophils # 7.9 K/mm3 (1.8-7.8); Neutrophils % 78.3 % (37.0-80.0); Platelet Count 362 K/mm3 (142-424); Red Blood Count 4.36 M/mm3 (4.60-6.20); Red Cell Distribution Width 17.5 % (11.5-17.5); Sodium 138 mmol/L (136-145); White Blood Count 10.1 K/mm3 (4.8-10.8)
[2021-04-11 12:09] LABS: Potassium 4.4 mmoL/L (3.5-5.1)
[2021-04-11 12:11] LABS: Alanine Aminotransferase 53 U/L (12-78); Albumin Level 4.2 g/dl (3.5-5.0); Albumin/Globulin Ratio 1.3 (1.1-1.8); Alkaline Phosphatase 153 U/L (38-126); Aspartate Amino Transferase 58 U/L (17-59); Bilirubin,Total 0.2 mg/dl (0.2-1.3); Blood Urea Nitrogen 30 mg/dl (9-20); Creatinine Clearance Estimated 78 mL/min (50-200); Estimated Glomerular Filt Rate 71 ml/min (>60); GFR (African American) 86 ML/MIN (>60); Globulin 3.3 g/dL (1.3-3.2); Total Protein,Serum 7.5 g/dl (6.3-8.2)
[2021-04-11 12:12] LABS: Anion Gap 14.4 mEq/L (5-15); Calcium 8.9 mg/dl (8.4-10.2); Carbon Dioxide 33 mmol/L (22.0-30.0); Glucose 407 mg/dl (74-100)
[2021-04-11 12:19] LABS: RBC,Urine Occasional #/hpf (0-3); Squamous Epithelial Cell,Urine Occasional #/hpf (0-5)
--- NOTE | 2021-04-11 14:23 | HMH.EDGENADL ---
ED Disposition Clinical Impression: Jittery feeling Obesity Qualifiers: Obesity type: due to excess calories Obesity classification: adult class 1 (BMI 30 - 34.9) Serious obesity comorbidity presence: with serious comorbidity Body mass index: BMI 34.0-34.9 Qualified Code(s): E66.09 - Other obesity due to excess calories Disposition: Home, Self-Care Condition on Discharge: Good Instructions: Anxiety Disorders Additional Instructions: Please follow up with your primary care physician in 2-3 days for further management. Please monitor your sugar levels closely and continue to take your diabetic medication as prescribed. Please return back to ED for any concerning symptoms such as chest pain, difficulty breathing, uncontrolled sugar levels, or any other concerning symptoms Referrals: Provider,Referral, MD [Primary Care Provider] - Time of Disposition: 13:30 - Critical Care Critical Care Time: No Attestation: On 04/11/21, the high probability of a clinically significant, sudden or life threatening deterioration of the following system(s) required my full and direct attention, intervention and personal management. The time I documented below is in addition to time spent performing reported procedures but includes the following listed in this critical care notation. Medical Decision Making - Medical Records Medical records reviewed: Yes: I reviewed the patient's medical records. - Fahad Inquiry Pt receiving controlled substance: No Vital Signs: 04/11/21 11:44 04/11/21 14:50 Temperature 98.2 F 98.4 F Temperature Source Oral Oral Pulse Rate 94 H Pulse Rate [Left Radial] 92 H Respiratory Rate 18 18 Blood Pressure 121/79 Blood Pressure [Right Arm] 128/72 Blood Pressure Mean [Right Arm] 90 Blood Pressure Source Automatic Cuff Blood Pressure Source [Right Arm] Automatic Cuff Blood Pressure Position Sitting Blood Pressure Position [Right Arm] Sitting 02 Sat by Pulse Oximetry 98 Oxygen Delivery Method Room Air Room Air - Lab Data Lab Results 04/11/21 11:50: WBC 10.1, RBC 4.36 L, Hgb 9.9 L, Hct 33.8 L, MCV 77.5 L, MCH 22.6 L, MCHC 29.2 L, RDW 17.5, Plt Count 362, MPV 8.6, Neut % (Auto) 78.3, Lymph % (Auto) 12.6, [place] % (Auto) 4.7, Eos % (Auto) 4.0, Baso % (Auto) 0.4, Neut # (Auto) 7.9 H, Lymph # (Auto) 1.3, [place] # (Auto) 0.5, Eos # (Auto) 0.4, Baso # (Auto) 0.0 04/11/21 11:50: Sodium 138, Potassium 4.4, Chloride 95 L, Carbon Dioxide 33 H, Anion Gap 14.4, BUN 30 H, Creatinine 1.10, Estimated Creat Clear 78, Estimated GFR 71, Est GFR ( Amer) 86, Glucose 407 H*, Calcium 8.9, Total Bilirubin 0.2, AST 58, ALT 53, Alkaline Phosphatase 153 H, Total Protein 7.5, Albumin 4.2, Globulin 3.3 H, Albumin/Globulin Ratio 1.3 04/11/21 12:00: VBG pH 7.32, VBG pCO2 48.2, VBG pO2 40.7 H, VBG HCO3 24.5, VBG Total CO2 26.0, VBG O2 Saturation 68.8, VBG Base Excess -1.5 04/11/21 12:01: Urine Color Yellow, Urine Appearance Clear, Urine pH 6.0, Ur Specific [place] 1.015, Urine Protein Trace, Urine Glucose (UA) 3+, Urine Ketones Negative, Urine Blood Negative, Urine Nitrate Negative, Urine Bilirubin Negative, Urine Urobilinogen 0.2, Ur Leukocyte Esterase Negative, Urine RBC Occasional, Urine WBC None, Ur Squamous Epith Cells Occasional, Urine Bacteria None Result diagrams: 04/11/21 11:50 04/11/21 11:50 Orders (Tests/Meds): ED MEDICATIONS Discontinued Medications Generic Name Dose Route Start Last Admin Trade Name Jeremy PRN Reason Stop Dose Admin Acetaminophen 650 mg 04/11/21 12:35 04/11/21 12:58 Acetaminophen 325mg Tab PO 04/11/21 12:36 650 mg ONCE ONE Administration Ibuprofen 600 mg 04/11/21 13:28 04/11/21 13:43 Ibuprofen 600 Mg Tablet PO 04/11/21 13:29 600 mg ONCE ONE Administration Medical Decision Narrative: Mr. Bragg is a 51-year-old male with past medical history for uncontrolled type 2 diabetes mellitus insulin-dependent and morbid obesity who presents to emergency department with
[2021-04-11 14:50] VITALS: BP 121/79; PULSE 94; RESP 18; TEMP 36.9; O2SAT 99
== END 2021-04-11 14:50 | disposition home or self-care (01) ==
PROVIDERS: Emergency Provider Student in an Organized Health Care Education/Training Program
DX: E11.65 Type 2 diabetes mellitus with hyperglycemia (principal); E66.09 Other obesity due to excess calories; Z68.42 Body mass index [BMI] 45.0-49.9, adult; I10 Essential (primary) hypertension; E78.5 Hyperlipidemia, unspecified; K21.9 Gastro-esophageal reflux disease without esophagitis; I50.9 Heart failure, unspecified; I48.91 Unspecified atrial fibrillation; I25.10 Atherosclerotic heart disease of native coronary artery without angina pectoris; F41.8 Other specified anxiety disorders; Z79.899 Other long term (current) drug therapy
CPT/HCPCS: 80053; 81001; 82803; 85025; 99283

== ENCOUNTER 2021-04-17 13:42 | Emergency (ER) | payer MEDICARE, MEDICAID, SELFPAY ==
[2021-04-17] VITALS (8 sets, daily range): BP systolic 99–151; BP diastolic 50–78; PULSE 72–103; RESP 16–24; TEMP 36.8–36.9; O2SAT 95–100; BMI 45.6
--- NOTE | 2021-04-17 13:37 | ECG_ITS ---
APPROVED REPORT Exam: Resting ECG HR:98 bpm ECG Measurements Heart Rate 98 AXES NM 150 P 66 QRSd 100 QRS 36 QT 356 T 16 QTc 454 Conclusion Normal sinus rhythm Isolated Q in III Abnormal ECG Electronically signed by : Cameron Kohli MD 04/18/2021 08:47:05
--- NOTE | 2021-04-17 14:12 | PC.NURSE ---
spoke with kareem from , she states obs for approx 4 hours, basic lab work optional. states nothing significant to watch for aside from drowsiness.
[2021-04-17 14:26] LABS: Basophils # 0.1 K/mm3 (0-0.2); Basophils % 0.4 % (0.1-2.0); Hemoglobin 9.7 g/dL (14.1-18.0); Monocytes # 0.7 K/mm3 (0.1-1.0)
[2021-04-17 14:29] LABS: Eosinophils # 0.6 K/mm3 (0.0-0.4); Hematocrit 33.9 % (42.0-52.0); Lymphocytes # 1.5 K/mm3 (0.7-4.5); Lymphocytes % 12.7 % (10-50); Mean Corpuscular HGB Conc 28.7 g/dL (31.8-35.4); Mean Corpuscular Hemoglobin 21.8 pg (27.0-31.2); Mean Corpuscular Volume 75.8 fl (80-94); Neutrophils # 8.7 K/mm3 (1.8-7.8); Neutrophils % 75.8 % (37.0-80.0); Platelet Count 409 K/mm3 (142-424); Red Blood Count 4.48 M/mm3 (4.60-6.20); Red Cell Distribution Width 16.8 % (11.5-17.5); White Blood Count 11.5 K/mm3 (4.8-10.8)
--- NOTE | 2021-04-17 14:33 | HMH.EDGENADL ---
ED Disposition Clinical Impression: Poorly controlled diabetes mellitus Overdose of benzodiazepine Qualifiers: Encounter type: initial encounter Injury intent: accidental or unintentional Qualified Code(s): T42.4X1A - Poisoning by benzodiazepines, accidental (unintentional), initial encounter Disposition: Home, Self-Care Condition on Discharge: Good Instructions: DI for Hyperglycemia -- Adult, DI for Drug Overdose in Adults Additional Instructions: Follow-up with your primary care provider, call Monday for appointment. Referrals: Provider,Referral, [Primary Care Provider] - - Critical Care Critical Care Time: No Attestation: On 04/17/21, the high probability of a clinically significant, sudden or life threatening deterioration of the following system(s) required my full and direct attention, intervention and personal management. The time I documented below is in addition to time spent performing reported procedures but includes the following listed in this critical care notation. Medical Decision Making - Fahad Inquiry Pt receiving controlled substance: No Vital Signs: 04/17/21 14:01 04/17/21 14:30 04/17/21 15:01 Temperature 98.2 F Temperature Source Oral Pulse Rate 90 98 H Pulse Rate [Left Radial] 103 H Respiratory Rate 20 19 24 Blood Pressure 107/57 L 151/78 H Blood Pressure [Right Arm] 119/55 L Blood Pressure Mean 73 96 Blood Pressure Mean [Right Arm] 76 Blood Pressure Source [Right Arm] Automatic Cuff Blood Pressure Position [Right Arm] Sitting 02 Sat by Pulse Oximetry 97 100 98 Oxygen Delivery Method Room Air 04/17/21 15:19 04/17/21 15:33 04/17/21 16:18 Temperature Temperature Source Pulse Rate 97 H 72 103 H Pulse Rate [Left Radial] Respiratory Rate 21 22 16 Blood Pressure 140/64 99/50 L 135/78 Blood Pressure [Right Arm] Blood Pressure Mean 90 69 Blood Pressure Mean [Right Arm] Blood Pressure Source [Right Arm] Blood Pressure Position [Right Arm] 02 Sat by Pulse Oximetry 97 98 95 Oxygen Delivery Method - Lab Data Lab Results 04/17/21 13:50: WBC 11.5 H, RBC 4.48 L, Hgb 9.7 L, Hct 33.9 L, MCV 75.8 L, MCH 21.8 L, MCHC 28.7 L, RDW 16.8, Plt Count 409, MPV 8.0, Neut % (Auto) 75.8, Lymph % (Auto) 12.7, [place] % (Auto) 6.0, Eos % (Auto) 5.0, Baso % (Auto) 0.4, Neut # (Auto) 8.7 H, Lymph # (Auto) 1.5, [place] # (Auto) 0.7, Eos # (Auto) 0.6 H, Baso # (Auto) 0.1 04/17/21 13:50: Sodium 135 L, Potassium 4.5, Chloride 90 L, Carbon Dioxide 33 H, Anion Gap 16.5 H, BUN 34 H, Creatinine 1.40 H, Estimated Creat Clear 61, Estimated GFR 54 L, Est GFR ( Amer) 65, Glucose 414 H*, Calcium 9.7, Total Bilirubin 0.3, AST 50, ALT 61, Alkaline Phosphatase 167 H, Total Protein 7.7, Albumin 4.3, Globulin 3.4 H, Albumin/Globulin Ratio 1.3 04/17/21 13:50: Salicylates < 1.0 L, Acetaminophen < 10 L 04/17/21 13:50: Plasma/Serum Alcohol < 10 04/17/21 14:50: Urine Color Yellow, Urine Appearance Clear, Urine pH 6.0, Ur Specific [place] 1.020, Urine Protein 1+, Urine Glucose (UA) 3+, Urine Ketones Negative, Urine Blood Negative, Urine Nitrate Negative, Urine Bilirubin Negative, Urine Urobilinogen 0.2, Ur Leukocyte Esterase Negative, Urine RBC None, Urine WBC None, Ur Squamous Epith Cells Occasional, Urine Bacteria None 04/17/21 14:50: Urine Opiates Screen Negative, Urine Methadone Screen Negative, Ur Barbituates Screen Negative, Ur Phencyclidine Scrn Negative, Ur Amphetamines Screen Negative, U Benzodiazepines Scrn Negative, Urine Cocaine Screen Negative, U Marijuana (THC) Screen Negative 04/17/21 16:38: POC Glucose 350 H* Result diagrams: 04/17/21 13:50 04/17/21 13:50 Orders (Tests/Meds): ED MEDICATIONS Discontinued Medications Generic Name Dose Route Start Last Admin Trade Name Freq PRN Reason Stop Dose Admin Insulin Human Lispro 20 unit 04/17/21 14:51 04/17/21 16:08 Humalog 100 Units/Ml 3ml Vial (Ssi) SQ 04/17/21 14:52 20 unit ONCE ONE Administration
[2021-04-17 14:35] LABS: Alanine Aminotransferase 61 U/L (12-78); Albumin Level 4.3 g/dl (3.5-5.0); Albumin/Globulin Ratio 1.3 (1.1-1.8); Alkaline Phosphatase 167 U/L (38-126); Anion Gap 16.5 mEq/L (5-15); Aspartate Amino Transferase 50 U/L (17-59); Bilirubin,Total 0.3 mg/dl (0.2-1.3); Blood Urea Nitrogen 34 mg/dl (9-20); Calcium 9.7 mg/dl (8.4-10.2); Carbon Dioxide 33 mmol/L (22.0-30.0); Chloride 90 mmol/L (98-107); Creatinine Clearance Estimated 61 mL/min (50-200); Estimated Glomerular Filt Rate 54 ml/min (>60); GFR (African American) 65 ML/MIN (>60); Globulin 3.4 g/dL (1.3-3.2); Potassium 4.5 mmoL/L (3.5-5.1); Sodium 135 mmol/L (136-145); Total Protein,Serum 7.7 g/dl (6.3-8.2)
[2021-04-17 14:37] LABS: Glucose 414 mg/dl (74-100)
[2021-04-17 15:00] LABS: Microscopic, Urine URINE MICROSCOPIC (MICROSCOPIC)
[2021-04-17 15:05] LABS: Acetaminophen < 10 ug/ml (10-30); Salicylate < 1.0 mg/dL (2.0-20.0)
[2021-04-17 15:07] LABS: Ethyl Alcohol < 10 mg/dl (0-10)
[2021-04-17 15:11] LABS: Appearance,Urine CLEAR (Clear); Bilirubin,Urine Negative (Negative); Blood, Urine Negative (Negative); Color,Urine YELLOW (Yellow); Glucose,Urine (UA) 3+ (Negative); Ketones,Urine Negative (Negative); Leukocyte Esterase,Urine Negative (Negative); Nitrate,Urine Negative (Negative); Protein,Urine 1+ (Negative); Urobilinogen,Urine 0.2 EU/dl (0.2)
[2021-04-17 15:12] LABS: Barbiturates Screen,Urine Negative ng/ml (<200)
[2021-04-17 15:13] LABS: Amphetamine/Metha Screen,Urine Negative ng/ml (<1000); Benzodiazepines Screen,Urine Negative ng/ml (<200)
[2021-04-17 15:14] LABS: Cannabinoid Screen,Urine Negative ng/ml (<50); Cocaine Screen,Urine Negative ng/ml (<300); Squamous Epithelial Cell,Urine Occasional #/hpf (0-5)
[2021-04-17 15:15] LABS: Methadone Screen,Urine Negative ng/ml (<300)
[2021-04-17 15:16] LABS: Opiate Screen,Urine Negative ng/ml (<300); Phencyclidine Screen,Urine Negative ng/ml (<25)
[2021-04-17 16:45] LABS: POC Glucose,Bedside 350 (70-110)
== END 2021-04-17 17:55 | disposition home or self-care (01) ==
PROVIDERS: Emergency Provider Emergency Medicine
DX: T42.4X1A Poisoning by benzodiazepines, accidental (unintentional), initial encounter (principal); E11.65 Type 2 diabetes mellitus with hyperglycemia; I10 Essential (primary) hypertension; I50.9 Heart failure, unspecified; I25.10 Atherosclerotic heart disease of native coronary artery without angina pectoris; K21.9 Gastro-esophageal reflux disease without esophagitis; E78.5 Hyperlipidemia, unspecified; Z87.891 Personal history of nicotine dependence; Z79.899 Other long term (current) drug therapy
CPT/HCPCS: 80053; 80305; 80329; 81001; 82962; 85025; 93005; 96372; 99283

== ENCOUNTER 2021-04-18 14:04 | Emergency (ER) | payer MEDICARE, MEDICAID, SELFPAY ==
[2021-04-18 14:04] VITALS: BP 102/57; PULSE 96; RESP 22; TEMP 36.8; O2SAT 94; BMI 45.6
--- NOTE | 2021-04-18 14:09 | CT_ITS ---
PROCEDURE INFORMATION: Exam: CT Head Without Contrast Exam date and time: 04/18/2021 2:09 PM Age: 51 years old Clinical indication: Pain; Headache; Other: Fell; Additional info: Fall loc TECHNIQUE: Imaging protocol: Computed tomography of the head without contrast. 3D rendering (Not supervised by radiologist): MIP and/or 3D reconstructed images were created by the technologist. Radiation optimization: All CT scans at this facility use at least one of these dose optimization techniques: automated exposure control; mA and/or kV adjustment per patient size (includes targeted exams where dose is matched to clinical indication); or iterative reconstruction. COMPARISON: CT HEAD/BRAIN WO CON 04/02/2021 12:19 PM FINDINGS: Brain: Prominent sulci. Patchy hypodensity of the cerebral white matter which are nonspecific but likely secondary to microangiopathic changes. Cerebral ventricles: The ventricles are mildly prominent secondary to diffuse volume loss/atrophy. Paranasal sinuses: Visualized sinuses are unremarkable. No fluid levels. Mastoid air cells: Visualized mastoid air cells are well aerated. Orbital cavity: High density within the left globe which has been previously described. Bones/joints: Unremarkable. No acute fracture. Soft tissues: Unremarkable. IMPRESSION: Mild age-related changes but no evidence of acute intracranial pathology. Remainder of findings as described above.
--- NOTE | 2021-04-18 14:10 | CT_ITS ---
PROCEDURE INFORMATION: Exam: CT Cervical Spine Without Contrast Exam date and time: 04/18/2021 2:10 PM Age: 51 years old Clinical indication: Neck pain; Additional info: Fall. Patient fell TECHNIQUE: Imaging protocol: Computed tomography images of the cervical spine without contrast. Radiation optimization: All CT scans at this facility use at least one of these dose optimization techniques: automated exposure control; mA and/or kV adjustment per patient size (includes targeted exams where dose is matched to clinical indication); or iterative reconstruction. COMPARISON: CT HEAD/BRAIN WO CON 04/18/2021 2:26 PM FINDINGS: Bones/joints: Hypertrophic changes are present involving the dens and anterior arch of C1. Discs/Spinal canal/Neural foramina: No significant disc protrusion. No severe spinal canal stenosis. No significant neural foraminal narrowing. Lungs: Lung apices are normal. Soft tissues: Unremarkable. IMPRESSION: No evidence of cervical spine fracture. Remainder of findings as described above.
--- NOTE | 2021-04-18 14:11 | XR_ITS ---
PROCEDURE INFORMATION: Exam: XR Chest Exam date and time: 04/18/2021 2:11 PM Age: 51 years old Clinical indication: Chest wall pain; Additional info: Fall TECHNIQUE: Imaging protocol: XR of the chest. Views: 1 view. COMPARISON: CR XR CHEST 2V 03/24/2021 8:31 PM FINDINGS: Lungs: Lungs are well aerated without a focal area of consolidation. Pleural spaces: Unremarkable. No pleural effusion. No pneumothorax. Heart/Mediastinum: The cardiac silhouette appears enlarged, some of which is magnification related to the AP projection. Bones/joints: Unremarkable. IMPRESSION: Lungs are well aerated without a focal area of consolidation.
--- NOTE | 2021-04-18 14:11 | XR_ITS ---
PROCEDURE INFORMATION: Exam: XR Right Shoulder Exam date and time: 04/18/2021 2:11 PM Age: 51 years old Clinical indication: Pain; Shoulder; Right; Additional info: Fall pain TECHNIQUE: Imaging protocol: XR Right shoulder. Views: 2 or more views. COMPARISON: [id number] VIEWS 09/13/2015 8:16 PM FINDINGS: Bones/joints: Visualized portions of the clavicle normal. Mild degenerative changes of the acromioclavicular joint. Glenohumeral joint normal. Scapula normal. Visualized ribs and visualized pulmonary parenchyma normal. Coracoid process normal Soft tissues: Normal. IMPRESSION: Mild degenerative changes of the acromioclavicular joint.
--- NOTE | 2021-04-18 14:53 | CT_ITS ---
PROCEDURE INFORMATION: Exam: CT Thoracic Spine Without Contrast Exam date and time: 04/18/2021 2:53 PM Age: 51 years old Clinical indication: Pain in thoracic spine; Other: Fall; Additional info: Back pain after fall TECHNIQUE: Imaging protocol: Computed tomography images of the thoracic spine without contrast. Radiation optimization: All CT scans at this facility use at least one of these dose optimization techniques: automated exposure control; mA and/or kV adjustment per patient size (includes targeted exams where dose is matched to clinical indication); or iterative reconstruction. COMPARISON: CT CERVICAL SPINE WO CON 04/18/2021 2:29 PM FINDINGS: Vertebrae: There is no evidence of acute fracture.There is no evidence of malalignment or dislocation. Mild anterior and lateral osteophyte formation along the thoracic spine Discs/Spinal canal/Neural foramina: No significant disc protrusion. No severe spinal canal stenosis. No significant neural foraminal narrowing. Soft tissues: Unremarkable. IMPRESSION: There is no evidence of acute fracture.There is no evidence of malalignment or dislocation.
[2021-04-18 15:00] VITALS: BP 124/54; PULSE 78; RESP 20; O2SAT 98
[2021-04-18 16:00] LABS: Basophils # 0.1 K/mm3 (0-0.2); Eosinophils # 0.6 K/mm3 (0.0-0.4); Hemoglobin 8.9 g/dL (14.1-18.0); Lymphocytes # 1.7 K/mm3 (0.7-4.5); Mean Platelet Volume 8.1 fl (7.4-10.4)
[2021-04-18 16:01] LABS: Chloride 94 mmol/L (98-107)
[2021-04-18 16:02] LABS: Potassium 4.3 mmoL/L (3.5-5.1); Sodium 137 mmol/L (136-145)
[2021-04-18 16:04] LABS: Basophils % 0.6 % (0.1-2.0); Eosinophils % 5.5 % (0.1-12.0); Lymphocytes % 16.5 % (10-50); Mean Corpuscular HGB Conc 28.8 g/dL (31.8-35.4); Mean Corpuscular Hemoglobin 21.8 pg (27.0-31.2); Mean Corpuscular Volume 75.7 fl (80-94); Monocytes # 0.7 K/mm3 (0.1-1.0); Monocytes % 7.4 % (1.7-9.3); Platelet Count 398 K/mm3 (142-424); Red Blood Count 4.09 M/mm3 (4.60-6.20); Red Cell Distribution Width 17.1 % (11.5-17.5)
[2021-04-18 16:05] LABS: Alanine Aminotransferase 52 U/L (12-78); Albumin/Globulin Ratio 1.3 (1.1-1.8); Alkaline Phosphatase 149 U/L (38-126); Anion Gap 16.3 mEq/L (5-15); Aspartate Amino Transferase 52 U/L (17-59); Bilirubin,Total 0.2 mg/dl (0.2-1.3); Blood Urea Nitrogen 42 mg/dl (9-20); Carbon Dioxide 31 mmol/L (22.0-30.0); Creatinine Clearance Estimated 48 mL/min (50-200); Estimated Glomerular Filt Rate 40 ml/min (>60); GFR (African American) 49 ML/MIN (>60)
[2021-04-18 16:10] LABS: Glucose 433 mg/dl (74-100)
[2021-04-18 16:24] LABS: Troponin I < 0.01 ng/ml (0.00-0.034)
--- NOTE | 2021-04-18 17:29 | HMH.EDGENADL ---
ED Disposition Clinical Impression: Back pain Qualifiers: Back pain location: thoracic back pain Chronicity: acute Back pain laterality: midline Qualified Code(s): M54.6 - Pain in thoracic spine Disposition: Home, Self-Care Condition on Discharge: Good Additional Instructions: You were evaluated emergency department today for back pain after a fall, and there is no need for further emergent evaluation at this time. Exact cause of symptoms is unclear but is most likely due to contusion or muscle spasm. Use ibuprofen and acetaminophen as directed for pain control follow-up with your primary care physician the next 1 to 2 days for monitoring any persistent symptoms and coordination of ongoing care needs, including retesting of your renal function and checking your blood sugar. Return to the emergency department that hesitation with any new or worsening symptoms. Referrals: Provider,Referral, [Primary Care Provider] - - Critical Care Critical Care Time: No Attestation: On 04/18/21, the high probability of a clinically significant, sudden or life threatening deterioration of the following system(s) required my full and direct attention, intervention and personal management. The time I documented below is in addition to time spent performing reported procedures but includes the following listed in this critical care notation. Medical Decision Making - Fahad Inquiry Pt receiving controlled substance: No - Lab Data Lab Results 04/18/21 15:38: WBC 10.0, RBC 4.09 L, Hgb 8.9 L, Hct 31.0 L, MCV 75.7 L, MCH 21.8 L, MCHC 28.8 L, RDW 17.1, Plt Count 398, MPV 8.1, Neut % (Auto) 70.0, Lymph % (Auto) 16.5, [place] % (Auto) 7.4, Eos % (Auto) 5.5, Baso % (Auto) 0.6, Neut # (Auto) 7.0, Lymph # (Auto) 1.7, [place] # (Auto) 0.7, Eos # (Auto) 0.6 H, Baso # (Auto) 0.1 04/18/21 15:38: Sodium 137, Potassium 4.3, Chloride 94 L, Carbon Dioxide 31 H, Anion Gap 16.3 H, BUN 42 H, Creatinine 1.80 H D, Estimated Creat Clear 48, Estimated GFR 40 L, Est GFR ( Amer) 49 L D, Glucose 433 H*, Calcium 9.0, Total Bilirubin 0.2, AST 52, ALT 52, Alkaline Phosphatase 149 H, Troponin I < 0.01, Total Protein 7.0, Albumin 4.0, Globulin 3.0, Albumin/Globulin Ratio 1.3 Result diagrams: 04/18/21 15:38 04/18/21 15:38 Orders (Tests/Meds): ORDERS Category Date Time Status CT lumbar spine wo con Stat Cat Scan 04/18/21 14:54 Ordered Troponin I Q3H Lab 04/18/21 17:15 Ordered Troponin I Q3H Lab 04/18/21 20:15 Ordered Medical Decision Narrative: In summary, the patient is a 51-year-old male presenting for evaluation of acute traumatic back pain after ground-level mechanical fall. He is in no acute distress, afebrile and hemodynamically stable, nontoxic in appearance. Physical exam demonstrates comfortable appearing male with normal cardiopulmonary exam, soft nontender abdomen, normal neurologic exam normal gait, mild midline thoracic tenderness to palpation without deformity or overlying skin changes, remainder physical exam within normal limits. Differential diagnosis includes but is not limited to bony fracture, ligamentous or soft tissue injury, contusion. Will obtain CT scans without IV contrast of the head and spine, basic laboratory analysis and reassess clinically. Reassessment: Patient continues to be in no acute distress and hemodynamically stable. CT scan did not demonstrate any acute traumatic injuries. Laboratory analysis demonstrates hyperglycemia, mild worsening renal function but close to baseline without meeting definition of acute kidney injury. Will discharge home with return precautions, recommendation for pain control using ibuprofen and acetaminophen, and recommendation for PCP follow-up in the next 1 to 2 days for monitoring of any persistent symptoms and coordination of ongoing care needs, including but not limited to recheck of serum creatinine. Patient communicated their understanding of the discharge plan, all of his questions were ans
[2021-04-18 19:07] VITALS: BP 132/65; PULSE 78; RESP 20; TEMP 36.6; O2SAT 94
== END 2021-04-18 19:09 | disposition home or self-care (01) ==
PROVIDERS: Emergency Provider Student in an Organized Health Care Education/Training Program
DX: M54.6 Pain in thoracic spine (principal); W01.0XXA Fall on same level from slipping, tripping and stumbling without subsequent striking against object, initial encounter; Y92.019 Unspecified place in single-family (private) house as the place of occurrence of the external cause; I48.0 Paroxysmal atrial fibrillation; I50.9 Heart failure, unspecified; F41.8 Other specified anxiety disorders; I25.10 Atherosclerotic heart disease of native coronary artery without angina pectoris; E11.9 Type 2 diabetes mellitus without complications; K21.9 Gastro-esophageal reflux disease without esophagitis; I10 Essential (primary) hypertension; E78.5 Hyperlipidemia, unspecified; Z79.899 Other long term (current) drug therapy
CPT/HCPCS: 70450; 71045; 72125; 72128; 73030; 80053; 84484; 85025; 99282

== ENCOUNTER 2021-04-25 10:28 | Observation (INO) | payer MEDICARE, MEDICAID, SELFPAY ==
[2021-04-25] VITALS (13 sets, daily range): BP systolic 105–166; BP diastolic 66–98; PULSE 61–100; RESP 14–20; TEMP 36.6–36.8; O2SAT 91–99; BMI 45.6; BMI 45.9
--- NOTE | 2021-04-25 10:38 | PC.NURSE ---
fsbs reading HI
--- NOTE | 2021-04-25 10:49 | HMH.EDGENADL ---
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 The time I documented below is in addition to time spent performing reported procedures but includes the following listed in this critical care notation. Total Critical Care Time: 35 Vital system(s) involved:: Metabolic Failure My critical care processes included: Assessment & monitoring of V/S, Initial and Re-exams, Data Review/Interpretation, Coordinating Care, Medication Orders and management, Documentation Medical Decision Making - Medical Records Medical records reviewed: Yes: I reviewed the patient's medical records. - Fahad Inquiry Pt receiving controlled substance: No Vital Signs: 04/25/21 10:29 04/25/21 11:23 04/25/21 11:36 Temperature 98.1 F Temperature Source Oral Pulse Rate 61 92 H Pulse Rate [Left Radial] 92 H Respiratory Rate 18 Blood Pressure 129/76 105/80 L Blood Pressure [Right Arm] 124/83 Blood Pressure Mean [Right Arm] 96 Blood Pressure Source [Right Arm] Automatic Cuff Blood Pressure Position [Right Arm] Sitting 02 Sat by Pulse Oximetry 98 95 97 Oxygen Delivery Method Room Air 04/25/21 12:00 Temperature Temperature Source Pulse Rate 92 H Pulse Rate [Left Radial] Respiratory Rate Blood Pressure 119/66 Blood Pressure [Right Arm] Blood Pressure Mean [Right Arm] Blood Pressure Source [Right Arm] Blood Pressure Position [Right Arm] 02 Sat by Pulse Oximetry 99 Oxygen Delivery Method - Lab Data Lab Results 04/25/21 10:48: Urine Color Yellow, Urine Appearance Clear, Urine pH 6.0, Ur Specific [place] 1.010, Urine Protein Trace, Urine Glucose (UA) 3+, Urine Ketones Negative, Urine Blood Negative, Urine Nitrate Negative, Urine Bilirubin Negative, Urine Urobilinogen 0.2, Ur Leukocyte Esterase Negative, Ur Squamous Epith Cells 3-5 04/25/21 10:48: WBC 8.7, RBC 4.73, Hgb 10.2 L, Hct 37.2 L, MCV 78.7 L, MCH 21.6 L, MCHC 27.4 L, RDW 17.4, Plt Count 423, MPV 8.4, Neut % (Auto) 70.9, Lymph % (Auto) 16.5, [place] % (Auto) 6.8, Eos % (Auto) 5.1, Baso % (Auto) 0.7, Neut # (Auto) 6.1, Lymph # (Auto) 1.4, [place] # (Auto) 0.6, Eos # (Auto) 0.4, Baso # (Auto) 0.1 04/25/21 10:48: Sodium 130 L, Potassium 4.9, Chloride 83 L, Carbon Dioxide 31 H, Anion Gap 20.9 H, BUN 45 H, Creatinine 1.40 H, Estimated GFR 54 L, Est GFR ( Amer) 65, Glucose 750 H*, Calcium 9.2, Total Bilirubin 0.4, AST 62 H, ALT 69, Alkaline Phosphatase 240 H, Total Protein 8.4 H, Albumin 4.6, Globulin 3.8 H, Albumin/Globulin Ratio 1.2, Acetone Level None detected 04/25/21 12:25: SARS-CoV-2 (PCR) Not detected, Influenza A Untype (PCR) Not detected, Influenza Type B (PCR) Not detected Result diagrams: 04/25/21 10:48 04/25/21 10:48 Orders (Tests/Meds): ED MEDICATIONS Generic Name Dose Route Start Last Admin Trade Name Freq PRN Reason Stop Dose Admin Dextrose 50 ml 04/25/21 14:05 Dextrose 50% 50ml Syringe (Crash Cart) IVP 05/25/21 14:04 NEEDED PRN Per DKA Protocol Insulin Human Regular 100 unit 101 mls @ 13.744 mls/hr 04/25/21 12:15 04/25/21 12:05 / Sodium Chloride IV 05/25/21 12:14 13.744 mls/hr .[id number] CARLIN Administration
--- NOTE | 2021-04-25 10:56 | PC.NURSE ---
Pt has ripped out his IV. Pt nurse aware.
[2021-04-25 11:02] LABS: Basophils # 0.1 K/mm3 (0-0.2); Basophils % 0.7 % (0.1-2.0); Eosinophils # 0.4 K/mm3 (0.0-0.4); Eosinophils % 5.1 % (0.1-12.0); Hematocrit 37.2 % (42.0-52.0); Hemoglobin 10.2 g/dL (14.1-18.0); Lymphocytes # 1.4 K/mm3 (0.7-4.5); Lymphocytes % 16.5 % (10-50); Mean Corpuscular HGB Conc 27.4 g/dL (31.8-35.4); Mean Corpuscular Hemoglobin 21.6 pg (27.0-31.2); Mean Corpuscular Volume 78.7 fl (80-94); Mean Platelet Volume 8.4 fl (7.4-10.4); Monocytes # 0.6 K/mm3 (0.1-1.0); Monocytes % 6.8 % (1.7-9.3); Neutrophils # 6.1 K/mm3 (1.8-7.8); Neutrophils % 70.9 % (37.0-80.0); Platelet Count 423 K/mm3 (142-424); Red Blood Count 4.73 M/mm3 (4.60-6.20); Red Cell Distribution Width 17.4 % (11.5-17.5); White Blood Count 8.7 K/mm3 (4.8-10.8)
[2021-04-25 11:07] LABS: Alanine Aminotransferase 69 U/L (12-78); Albumin Level 4.6 g/dl (3.5-5.0); Albumin/Globulin Ratio 1.2 (1.1-1.8); Alkaline Phosphatase 240 U/L (38-126); Anion Gap 20.9 mEq/L (5-15); Aspartate Amino Transferase 62 U/L (17-59); Bilirubin,Total 0.4 mg/dl (0.2-1.3); Blood Urea Nitrogen 45 mg/dl (9-20); Calcium 9.2 mg/dl (8.4-10.2); Carbon Dioxide 31 mmol/L (22.0-30.0); Chloride 83 mmol/L (98-107); Estimated Glomerular Filt Rate 54 ml/min (>60); GFR (African American) 65 ML/MIN (>60); Globulin 3.8 g/dL (1.3-3.2); Potassium 4.9 mmoL/L (3.5-5.1); Sodium 130 mmol/L (136-145); Total Protein,Serum 8.4 g/dl (6.3-8.2)
[2021-04-25 11:18] LABS: Microscopic, Urine URINE MICROSCOPIC (MICROSCOPIC)
[2021-04-25 11:19] LABS: Appearance,Urine CLEAR (Clear); Bilirubin,Urine Negative (Negative); Blood, Urine Negative (Negative); Color,Urine YELLOW (Yellow); Glucose,Urine (UA) 3+ (Negative); Ketones,Urine Negative (Negative); Leukocyte Esterase,Urine Negative (Negative); Nitrate,Urine Negative (Negative); Protein,Urine TRACE (Negative); Urobilinogen,Urine 0.2 EU/dl (0.2)
[2021-04-25 11:22] LABS: Acetone, Serum (Rapid) None Detected (None Detect); Glucose 750 mg/dl (74-100)
--- NOTE | 2021-04-25 11:22 | PC.NURSE ---
blood glucose is 750 critical called to Maverick Colon RN
--- NOTE | 2021-04-25 11:37 | PC.NURSE ---
at bedside doing US guided IV
[2021-04-25 13:03] LABS: Coronavirus 19, PCR Not Detected (NotDetected); Influenza A, PCR Not Detected (NotDetected); Influenza B, PCR Not Detected (NotDetected)
--- NOTE | 2021-04-25 13:12 | PC.NURSE ---
FSBS 593
--- NOTE | 2021-04-25 14:09 | PC.NURSE ---
Report given to Peggy SÁNCHEZ
--- NOTE | 2021-04-25 14:48 | PC.NURSE ---
pt arrived to the floor at this time
[2021-04-25 14:51] LABS: Chloride 86 mmol/L (98-107); Potassium 4.9 mmoL/L (3.5-5.1); Sodium 131 mmol/L (136-145)
[2021-04-25 14:53] LABS: Blood Urea Nitrogen 46 mg/dl (9-20); Creatinine Clearance Estimated 71 mL/min (50-200); Estimated Glomerular Filt Rate 64 ml/min (>60); GFR (African American) 78 ML/MIN (>60)
[2021-04-25 14:54] LABS: Anion Gap 20.9 mEq/L (5-15); Calcium 8.9 mg/dl (8.4-10.2); Carbon Dioxide 29 mmol/L (22.0-30.0)
[2021-04-25 14:59] LABS: Acetone, Serum (Rapid) None Detected (None Detect); Glucose 530 mg/dl (74-100)
--- NOTE | 2021-04-25 15:22 | P.CONPHA_ITS ---
[facility] [place] Pharmacy VTE Monitoring - Patient Demographics Admission date: 04/25/21 Report Date: 04/25/21 Time: 15:22 Allergies/Adverse Reactions: Patient Allergies pregabalin [From Lyrica] Adverse Reaction (Verified 04/19/21 11:38) made skin crawl Height: 1.73 m Weight: 137.042 kg Patient Problems: Current Active Problems Diabetic ketoacidosis (Acute) Smoker (Chronic) Diabetes mellitus (Chronic) - VTE Risk Labs: VTE Related Lab Results Hgb 10.2 g/dL (14.1-18.0) L 04/25/21 10:48 Hct 37.2 % (42.0-52.0) L 04/25/21 10:48 Plt Count 423 K/mm3 (142-424) 04/25/21 10:48 BUN 46 mg/dl (9-20) H 04/25/21 14:39 Creatinine 1.20 mg/dl (0.66-1.25) 04/25/21 14:39 Estimated Creat Clear 71 mL/min (50-200) 04/25/21 14:39 VTE Score: 4 VTE Risk Level: Low Risk - Prophylaxis Types of VTE Prophylaxis: TEDS Knee High Location of Applied Device: Bilateral Lower Extremeties (ADONAY HOSE ORDER PLACED)
[2021-04-25 18:31] LABS: Chloride 87 mmol/L (98-107)
[2021-04-25 18:32] LABS: Potassium 4.2 mmoL/L (3.5-5.1); Sodium 137 mmol/L (136-145)
[2021-04-25 18:34] LABS: Blood Urea Nitrogen 45 mg/dl (9-20); Creatinine Clearance Estimated 57 mL/min (50-200)
[2021-04-25 18:35] LABS: Anion Gap 20.2 mEq/L (5-15); Calcium 9.1 mg/dl (8.4-10.2); Carbon Dioxide 34 mmol/L (22.0-30.0); Estimated Glomerular Filt Rate 50 ml/min (>60); GFR (African American) 60 ML/MIN (>60); Glucose 344 mg/dl (74-100)
[2021-04-25 22:22] LABS: POC Glucose,Bedside 481 (70-110)
[2021-04-25 22:22] LABS: POC Glucose,Bedside 385 (70-110)
[2021-04-25 22:22] LABS: POC Glucose,Bedside 319 (70-110)
[2021-04-25 22:22] LABS: POC Glucose,Bedside 398 (70-110)
[2021-04-25 22:23] LABS: Chloride 88 mmol/L (98-107); Sodium 135 mmol/L (136-145)
[2021-04-25 22:26] LABS: Blood Urea Nitrogen 44 mg/dl (9-20); Calcium 9.2 mg/dl (8.4-10.2); Carbon Dioxide 33 mmol/L (22.0-30.0); Creatinine Clearance Estimated 61 mL/min (50-200); Estimated Glomerular Filt Rate 54 ml/min (>60); GFR (African American) 65 ML/MIN (>60); Glucose 283 mg/dl (74-100)
--- NOTE | 2021-04-25 23:41 | PC.NURSE ---
8489- Paged MD Delfina regarding pt. request of pain medication and serum acetone detection as none. New orders: Percocet 5/325 mg PO x1 now, d/c insulin gtt and start on high ssi, start ivf per dka protocol. 2199- stopped insulin gtt at this time and placed on ivf
[2021-04-26] VITALS (10 sets, daily range): BP systolic 107–168; BP diastolic 61–90; PULSE 77–103; RESP 14–24; TEMP 36.4–37.1; O2SAT 91–95; BMI 47.8; BMI 47.7
[2021-04-26 06:27] LABS: POC Glucose,Bedside 401 (70-110)
[2021-04-26 06:57] LABS: Blood Urea Nitrogen 43 mg/dl (9-20); Calcium 8.9 mg/dl (8.4-10.2); Carbon Dioxide 32 mmol/L (22.0-30.0); Chloride 89 mmol/L (98-107); Creatinine Clearance Estimated 71 mL/min (50-200); Estimated Glomerular Filt Rate 64 ml/min (>60); GFR (African American) 78 ML/MIN (>60); Sodium 133 mmol/L (136-145)
[2021-04-26 07:23] LABS: Glucose 426 mg/dl (74-100)
[2021-04-26 11:54] LABS: Glucose,Random 569 mg/dL (74-100)
[2021-04-26 11:58] LABS: POC Glucose,Bedside 561 (70-110)
--- NOTE | 2021-04-26 14:25 | HMH.HP ---
*Admission Date: 04/25/21 *Chief complaint: sugar high *History of present illness: this patient presented to the ed -Patient is a 51-year-old male with history of diabetes who is insulin-dependent presents the ED today as he was out of his insulin since yesterday. Patient states that his sugar read high at home, states that he feels generally unwell with fatigue, generalized weakness, aches and pains in the upper and lower extremities but no other specific symptoms. Patient denies chest pain shortness of breath abdominal pain nausea or vomiting. thai is a 51-year-old male presents the ED today with elevated blood sugar. Patient is well-appearing on initial evaluation, no acute distress. Vital signs stable. Will further evaluate with CBC CMP acetone, urinalysis. Found to have elevated blood sugar in the 700s, elevated anion gap, given this dehydration, DKA will admit inpatient for further evaluation. . Patient will be taken care of inpatient by Dr. Mathis who is his primary care. Patient is require close observation and reassessment, titration of drips, and admission to our step down progressive unit. [facility] History I have reviewed the patient's past medical history: Yes Medical History: Reports:: Anxiety, Atrial Fibrillation, Congestive Heart Failure, Congenital Heart Disease, Coronary Artery Disease, Depression, Diabetes Mellitus Type 2, Gastroesophageal Reflux Disease(GERD), Hyperlipidemia, Hypertension, Renal Disease Denies:: Cancer, Diabetes Mellitus Type 1, MRSA *Have you ever received a pneumonia vaccine?: Yes *Have you received a flu vaccine this season?: Yes Other Surgeries: Yes: No Previous Surgery, Angiogram, Cardiac Catheterization Amputation: No Fractures: Yes - *Social History Last grade of school completed: 9th or 10th Smoking Status: Former smoker Tobacco Type: smokeless tobacco # Packs/Day (cigarettes): 0 Alcohol Intake: never Alcohol Intake Frequency:: 3 or more drinks per day Substance Use Type: denies use *Occupational Status:: unemployed Housing: house Household Members: spouse *Travel in the last 8 weeks: None - Psychiatric History Pschychiatric History:: Reports:: Anxiety, Depression Family Hx:: Heart Attack, Hypertension, Substance abuse, Alcoholism Review of Systems - Review of Systems Review of systems:: pertinent systems reviewed and negative unless documented below - Constitutional Denies fever(s) - Eyes Denies change in vision - ENT Denies dizziness - *Cardiovascular Denies chest pain - *Respiratory Denies cough - *Gastrointestinal Denies abdominal pain - *Genitourinary Denies blood in urine - *Musculoskeletal Denies joint pain - Integumentary/Breasts Denies rash - *Neurologic Denies seizure-like activity, Denies headache(s) - Psychiatric Reports anxiety, Denies confusion, Denies thoughts of hurting/killing yourself Meds Home Medications Medication Instructions Recorded Confirmed Type aspirin 81 mg tablet,delayed 81 mg PO DAILY tab 10/27/17 04/25/21 History release cholecalciferol (vitamin D3) 1,250 1,250 mcg PO WEEKLY 01/18/21 04/25/21 History mcg (50,000 unit) capsule Doxazosin Mesylate [Cardura 4mg 2 mg PO BID 01/29/21 04/25/21 History Tab] atorvastatin 80 mg tablet 80 mg PO DAILY #30 tab 02/22/21 04/25/21 Rx pantoprazole 40 mg tablet,delayed 40 mg PO DAILY #90 tab 02/25/21 04/25/21 Rx release Potassium Chloride 20 meq PO DAILY 03/08/21 04/25/21 History Trazodone HCl 50 mg PO HS 03/08/21 04/25/21 History gabapentin 800 mg tablet 800 mg PO TID PRN #90 tab 03/22/21 04/25/21 Rx lorazepam 1 mg tablet 1 mg PO BIDP PRN 03/22/21 04/25/21 History albuterol sulfate 90 mcg/actuation 2 puff INHALATION Q4-6H PRN #8.5 g 03/25/21 04/25/21 Rx aerosol inhaler Budesonide/Formoterol Fumarate 2 puff IH BID 04/02/21 04/25/21 History [Budesonide-Formoterol 160-4.5] Torsemide [Demadex] 40 mg PO DAILY 04/02/21 04/25/21 History Buspirone HCl [Buspirone 30mg
[2021-04-26 17:15] LABS: POC Glucose,Bedside 396 (70-110)
[2021-04-27 03:48] VITALS: BP 151/89; PULSE 76; RESP 20; TEMP 36.7; O2SAT 96
[2021-04-27 05:14] VITALS: BMI 47.7
[2021-04-27 05:59] VITALS: PULSE 94; PULSE 95
--- NOTE | 2021-04-27 06:11 | PC.NURSE ---
No acute changes. Pt has slept at intervals. Pt has been on bipap when sleeping. Has c/o back pain x2 this shift. Medicated per aug. FSBS have been in the mid to upper 300s. No other concerns at this time. Will continue to monitor.
[2021-04-27 06:55] LABS: Anion Gap 15.8 mEq/L (5-15); Blood Urea Nitrogen 35 mg/dl (9-20); Carbon Dioxide 32 mmol/L (22.0-30.0); Chloride 88 mmol/L (98-107); Creatinine Clearance Estimated 78 mL/min (50-200); Estimated Glomerular Filt Rate 71 ml/min (>60); GFR (African American) 86 ML/MIN (>60); Glucose 369 mg/dl (74-100); Potassium 3.8 mmoL/L (3.5-5.1); Sodium 132 mmol/L (136-145)
[2021-04-27 08:00] VITALS: BP 152/91; PULSE 107; RESP 21; TEMP 36.8; O2SAT 94
[2021-04-27 08:26] VITALS: RESP 16
--- NOTE | 2021-04-27 09:43 | HMH.DCSUM ---
General - General Admission date:: 04/25/21 Discharge date: 04/27/21 HPI HPI: this patient presented to the ed -Patient is a 51-year-old male with history of diabetes who is insulin-dependent presents the ED today as he was out of his insulin since yesterday. Patient states that his sugar read high at home, states that he feels generally unwell with fatigue, generalized weakness, aches and pains in the upper and lower extremities but no other specific symptoms. Patient denies chest pain shortness of breath abdominal pain nausea or vomiting. thai is a 51-year-old male presents the ED today with elevated blood sugar. Patient is well-appearing on initial evaluation, no acute distress. Vital signs stable. Will further evaluate with CBC CMP acetone, urinalysis. Found to have elevated blood sugar in the 700s, elevated anion gap, given this dehydration, DKA will admit inpatient for further evaluation. . Patient will be taken care of inpatient by Dr. Mathis who is his primary care. Patient is require close observation and reassessment, titration of drips, and admission to our step down progressive unit. Hospital Course Hospital Course: this patient presented to the ed -Patient is a 51-year-old male with history of diabetes who is insulin-dependent presents the ED today as he was out of his insulin since yesterday. Patient states that his sugar read high at home, states that he feels generally unwell with fatigue, generalized weakness, aches and pains in the upper and lower extremities but no other specific symptoms. Patient denies chest pain shortness of breath abdominal pain nausea or vomiting. thai is a 51-year-old male presents the ED today with elevated blood sugar. Patient is well-appearing on initial evaluation, no acute distress. Vital signs stable. Will further evaluate with CBC CMP acetone, urinalysis. Found to have elevated blood sugar in the 700s, elevated anion gap, given this dehydration, DKA will admit inpatient for further evaluation. . Patient will be taken care of inpatient by Dr. Mathis who is his primary care. Patient is require close observation and reassessment, titration of drips, and admission to our step down progressive unit. UA negative, urine glucose 3+ Serum acetone negative During his stay he has received IV insulin and IV fluids, current glucose is 200s. He is a well-known patient to our clinic he at times can be very noncompliant and reports that he is ran out of insulin even though he has been ordered for him several times. Insulin now will be delivered to him per meds to beds and he will belt picker his pain pills upon discharge. We have stressed the importance of following all diabetic instructions strictly, he is in agreement with this verbalizes understanding and will have an appointment in the upcoming future for an insulin pump. He is aware of this and agreeable and is looking forward to getting his diabetic problems under control. He has tolerated meals and voices compliance with CPAP machine at home. 51-year-old male patient sitting up from the side of the bed denies any pain, shortness of breath, dizziness at present. Has tolerated breakfast without any difficulties, denies nausea/indigestion. Discussed discharged home he is agreement to this verbalizes importance of following diabetic regimen and will be in close contact with our CDE in clinic. PLAN: 1. We will discharge home today 2. Follow-up with PCP in 1 week 3. Strictly follow medical regimen per instruction especially all diabetic instructions 4. Percocet 5/325 mg 1 daily as needed Objective Vital signs: Temp Pulse Resp BP Pulse Ox 98.2 F 107 H 16 152/91 H 94 L 04/27/21 08:00 04/27/21 08:00 04/27/21 08:26 04/27/21 08:00 04/27/21 08:00 no acute distress, obese - *Routine HEENT Exam Head: Present: normocephalic Eye: Present: EOMI ENT: Present: mucous membranes moist - *Routine Neck Exam Present: tr
--- NOTE | 2021-04-27 11:36 | HMH.PHAINT ---
MEDICATION RECONCILIATION COMPLETED ON PATIENT USING EXTERNAL FILL HISTORY FROM PHARMACY AND DISCHARGE SUMMARY FROM PREVIOUS VISIT. -ANUP TOWNSENDD
== END 2021-04-27 13:30 | disposition home or self-care (01) ==
LOC: ER 11:49 → 2ND 13:43
PROVIDERS: Admitting Provider Emergency Medicine; Emergency Provider Student in an Organized Health Care Education/Training Program; PCP Emergency Medicine; Visit Provider Emergency Medicine
DX: E11.10 Type 2 diabetes mellitus with ketoacidosis without coma (principal); I48.91 Unspecified atrial fibrillation; I11.0 Hypertensive heart disease with heart failure; I50.9 Heart failure, unspecified; I25.10 Atherosclerotic heart disease of native coronary artery without angina pectoris; Z20.822 Contact with and (suspected) exposure to COVID-19; Z79.4 Long term (current) use of insulin; K21.9 Gastro-esophageal reflux disease without esophagitis; F17.290 Nicotine dependence, other tobacco product, uncomplicated; M54.16 Radiculopathy, lumbar region; Z79.899 Other long term (current) drug therapy
CPT/HCPCS: G0378; 36415; 80048; 80053; 81001; 82009; 82947; 82962; 85025; 94640; 94660; 96365; 99284; C9803; J2405; U0003; U0005

== ENCOUNTER → 2021-04-30 12:50 | Outpatient (CLI) | payer MEDICARE, MEDICAID, SELFPAY ==
[2021-04-30 13:05] LABS: Basophils # 0.1 K/mm3 (0-0.2); Basophils % 0.5 % (0.1-2.0); Eosinophils # 0.3 K/mm3 (0.0-0.4); Eosinophils % 2.2 % (0.1-12.0); Hematocrit 33.4 % (42.0-52.0); Hemoglobin 9.3 g/dL (14.1-18.0); Lymphocytes % 6.8 % (10-50); Mean Corpuscular HGB Conc 27.9 g/dL (31.8-35.4); Mean Corpuscular Hemoglobin 21.5 pg (27.0-31.2); Mean Corpuscular Volume 76.9 fl (80-94); Mean Platelet Volume 9.5 fl (7.4-10.4); Monocytes # 0.7 K/mm3 (0.1-1.0); Monocytes % 4.7 % (1.7-9.3); Neutrophils # 12.2 K/mm3 (1.8-7.8); Neutrophils % 85.9 % (37.0-80.0); Platelet Count 354 K/mm3 (142-424); Red Blood Count 4.35 M/mm3 (4.60-6.20); Red Cell Distribution Width 17.2 % (11.5-17.5); White Blood Count 14.1 K/mm3 (4.8-10.8)
[2021-04-30 13:06] LABS: MANUAL DIFFERENTIAL MANUAL DIFFERENTIAL (MANUAL DIFF)
[2021-04-30 15:01] LABS: Eosinophils % 1 % (0-3); Lymphocytes % 6 % (10-50); Monocytes % 3 % (2-9); Neutrophils % 90 % (42-76); Platelet Estimate Normal; Total Cells Counted 100
[2021-04-30 15:02] LABS: Microcytosis 1+; Stomatocytes 1+
[2021-04-30 15:03] LABS: Hypochromasia 2+
[2021-04-30 17:29] LABS: Iron 26 ug/dL (49-181)
[2021-04-30 17:48] LABS: Total Iron Binding Capacity 505 ug/dL (261-462)
[2021-04-30 18:06] LABS: Ferritin 16.8 ng/ml (17.9-464)
== END ==
PROVIDERS: Visit Provider Internal Medicine Medical Oncology
DX: R59.0 Localized enlarged lymph nodes (principal); D50.9 Iron deficiency anemia, unspecified
CPT/HCPCS: 36415; 82728; 83540; 83550; 85007; 85025

== ENCOUNTER → 2021-05-03 09:35 | Outpatient (CLI) | payer MEDICARE, MEDICAID, SELFPAY | PROVIDERS: Visit Provider Surgery | DX: Z01.812 Encounter for preprocedural laboratory examination (principal); Z11.52 Encounter for screening for COVID-19; Z12.11 Encounter for screening for malignant neoplasm of colon; D50.9 Iron deficiency anemia, unspecified | CPT/HCPCS: C9803; U0003; U0005 ==

== ENCOUNTER 2021-05-05 08:05 | Day surgery (SDC) | payer MEDICARE, MEDICAID, SELFPAY ==
[2021-05-03 10:12] VITALS: BMI 47.4
[2021-05-05 08:15] VITALS: PULSE 86; RESP 18; TEMP 36.4; O2SAT 96
--- NOTE | 2021-05-05 08:40 | SUR.PREOP ---
10 U REG INSULIN GIVEN PER ORDER.
[2021-05-05 09:28] VITALS: O2SAT 97
--- NOTE | 2021-05-05 09:53 | HMH.SCOPE ---
- Procedure: Date: 05/05/21 Patient Date of :: 1970 Procedure Performed:: Suboptimal colonoscopy Indications:: Patient is a 51-year-old male from [facility] referred by Dr. Hobson for colonoscopy for microcytic anemia. He has a history of poorly controlled diabetes, atrial fibrillation, congestive heart failure, sleep apnea, COPD, congenital heart disease, anxiety, depression, GERD, hypertension, renal disease. He is being evaluated by hematology oncology for adenopathy. He has anemia. He never had prior colonoscopy. Patient had recent hospitalization with blood sugars greater than 700 and shortness of breath. Primary care provider is Dr. Mathis's office Performing Provider:: De Pozo MD Referring Provider:: Liana Hobson MD Sedation:: MAC sedation Procedure:: Patient was taken to endoscopy procedure room. He was positioned in lateral position. Sedation was achieved with anesthesia titration of propofol. Please note that he required a very large amount of propofol as well as some additional ketamine for appropriate sedation. Variable stiffness Olympus colonoscope was inserted via the anus. With some difficulty due to floppiness of the colon and due to the patient's body habitus advancement of the colonoscope to the right colon was difficult. Colonic preparation was very poor. Visualization was extremely poor particularly the right colon and transverse colon. Colonoscope was only able to be advanced to the ascending colon due to the patient's body habitus and suboptimal preparation. Colonoscope was withdrawn. This was a completely nondiagnostic colonoscopy Findings:: Extremely poor preparation and visualization Recommendations:: Nondiagnostic colonoscopy. Recommend repeat colonoscopy in 6 months with more aggressive alternate bowel preparation. Complications:: None immediately apparent Estimated blood obtained (mL): 1
[2021-05-05 09:55] VITALS: BP 140/71; PULSE 97; RESP 20; TEMP 36.5; O2SAT 99
--- NOTE | 2021-05-05 10:01 | P.PN_ITS ---
[facility] Anesthesia Checklist - Patient Identification Patient Identification: Arm Band - Structural Data Admitted From: Home Planned Operative Procedure/s: colonoscopy Consent for Planned Operative Procedure(s) Verified: Yes Verified Documents: Surgical Consent, History and Physical - NPO Status Verified Time NPO: 00:00 - Additional verifications Anesthesia Reactions: No - Airway Assessment C-Spine Mobility Assessed: Yes (mp2) TMJ Mobility Assessed: Yes Dentition: Poor Dentition - Neurological Assessment Level of Consciousness: Awake, Alert - Anesthesia Plan Anesthesia Risk discussed: Yes Anesthesia Plan: Verified ASA Class: III Anesthesia Type: MAC - Preoperative Comments Pre-Operative Comments: Explained risk benefits of procedure with pt. Discussed delaying procedure d/t fsbs + recent hospitalizations and comorbidities. Pt was adamant that procedure be performed today or that he would not be having it done. Pt verbalized understanding of his increased risk with sedation and operation. [facility] History I have reviewed the patient's past medical history: Yes Medical History: Reports:: Anxiety, Atrial Fibrillation, Congestive Heart Failure, Congenital Heart Disease, Coronary Artery Disease, Depression, Diabetes Mellitus Type 2, Gastroesophageal Reflux Disease(GERD), Hyperlipidemia, Hypertension, Renal Disease Denies:: Cancer, Diabetes Mellitus Type 1, Internal Pacemaker, MRSA, Seizures *Have you ever received a pneumonia vaccine?: Yes *Have you received a flu vaccine this season?: Yes Anesthesia experience/problems:: nac Other Surgeries: Yes: Angiogram, Cardiac Catheterization. No: Pacemaker Amputation: No Fractures: Yes - *Social History Last grade of school completed: High school graduate Smoking Status: Never smoker Tobacco Type: smokeless tobacco # Packs/Day (cigarettes): 0 Alcohol Intake: never Alcohol Intake Frequency:: 3 or more drinks per day Substance Use Type: denies use *Occupational Status:: disabled Housing: house Household Members: spouse *Travel in the last 8 weeks: None - Psychiatric History Pschychiatric History:: Reports:: Anxiety, Depression Family Hx:: Cancer
[2021-05-05 10:05] VITALS: BP 138/70; PULSE 88; RESP 20; O2SAT 98
[2021-05-05 10:15] VITALS: BP 149/88; PULSE 86; RESP 18; O2SAT 100
[2021-05-05 10:25] VITALS: BP 152/86; PULSE 89; RESP 18; O2SAT 100
[2021-05-05 10:37] LABS: POC Glucose,Bedside 275 (70-110)
[2022-03-24 10:54] LABS: POC Glucose,Bedside 416 (70-110)
[2022-03-24 10:54] LABS: POC Glucose,Bedside 446 (70-110)
== END 2021-05-05 10:25 | disposition home or self-care (01) ==
LOC: OUTP 08:07
PROVIDERS: PCP Emergency Medicine; Visit Provider Surgery
PROC: 0DJD8ZZ Inspection of Lower Intestinal Tract, Via Natural or Artificial Opening Endoscopic (ICD-10-PCS; principal; 2021-05-05 09:30)
DX: K56.2 Volvulus (principal); D50.9 Iron deficiency anemia, unspecified; E11.9 Type 2 diabetes mellitus without complications; I48.91 Unspecified atrial fibrillation; I50.9 Heart failure, unspecified; G47.33 Obstructive sleep apnea (adult) (pediatric); J44.9 Chronic obstructive pulmonary disease, unspecified; F41.9 Anxiety disorder, unspecified; F32.9 Major depressive disorder, single episode, unspecified; K21.9 Gastro-esophageal reflux disease without esophagitis; I10 Essential (primary) hypertension; N28.9 Disorder of kidney and ureter, unspecified
CPT/HCPCS: 45330; 82962

== ENCOUNTER 2021-05-13 21:54 | Emergency (ER) | payer MEDICARE, MEDICAID, SELFPAY ==
[2021-05-13 21:54] VITALS: BP 139/72; PULSE 85; RESP 20; TEMP 36.7; O2SAT 98; BMI 48.6
[2021-05-13 22:11] VITALS: BMI 48.6
--- NOTE | 2021-05-13 22:13 | PC.NURSE ---
FS obtained 2x, too high to read per ER glucometer.
[2021-05-13 22:20] LABS: Basophils # 0.1 K/mm3 (0-0.2); Eosinophils # 0.3 K/mm3 (0.0-0.4); Eosinophils % 4.2 % (0.1-12.0); Hematocrit 34.7 % (42.0-52.0); Lymphocytes # 1.2 K/mm3 (0.7-4.5); Lymphocytes % 16.4 % (10-50); Mean Corpuscular HGB Conc 28.9 g/dL (31.8-35.4); Mean Corpuscular Hemoglobin 21.5 pg (27.0-31.2); Mean Corpuscular Volume 74.3 fl (80-94); Mean Platelet Volume 8.5 fl (7.4-10.4); Monocytes # 0.4 K/mm3 (0.1-1.0); Monocytes % 5.6 % (1.7-9.3); Neutrophils # 5.1 K/mm3 (1.8-7.8); Neutrophils % 72.9 % (37.0-80.0); Platelet Count 417 K/mm3 (142-424); Red Blood Count 4.67 M/mm3 (4.60-6.20); Red Cell Distribution Width 16.7 % (11.5-17.5)
[2021-05-13 22:27] LABS: Alanine Aminotransferase 38 U/L (12-78); Albumin Level 4.6 g/dl (3.5-5.0); Albumin/Globulin Ratio 1.4 (1.1-1.8); Alkaline Phosphatase 174 U/L (38-126); Anion Gap 18.9 mEq/L (5-15); Aspartate Amino Transferase 45 U/L (17-59); Bilirubin,Total 0.5 mg/dl (0.2-1.3); Blood Urea Nitrogen 44 mg/dl (9-20); Calcium 9.2 mg/dl (8.4-10.2); Carbon Dioxide 29 mmol/L (22.0-30.0); Chloride 87 mmol/L (98-107); Creatinine Clearance Estimated 61 mL/min (50-200); Estimated Glomerular Filt Rate 54 ml/min (>60); GFR (African American) 65 ML/MIN (>60); Globulin 3.3 g/dL (1.3-3.2); Magnesium 2.1 mg/dl (1.6-2.3); Potassium 4.9 mmoL/L (3.5-5.1); Sodium 130 mmol/L (136-145); Total Protein,Serum 7.9 g/dl (6.3-8.2)
[2021-05-13 22:33] LABS: C-Reactive Protein 11.4 mg/L (0-4)
[2021-05-13 22:39] LABS: Acetone, Serum (Rapid) Small (None Detect)
[2021-05-13 22:45] LABS: Troponin I < 0.01 ng/ml (0.00-0.034)
[2021-05-13 22:47] LABS: Glucose 676 mg/dl (74-100)
--- NOTE | 2021-05-13 22:52 | HMH.EDGENADL ---
ED Disposition Clinical Impression: Hyperglycemia due to type 1 diabetes mellitus Diabetic ketoacidosis Qualifiers: Diabetes mellitus type: type 2 Diabetes mellitus complication detail: without coma Qualified Code(s): E11.10 - Type 2 diabetes mellitus with ketoacidosis without coma Disposition: Home, Self-Care Condition on Discharge: Good Instructions: DI for Hyperglycemia -- Adult Additional Instructions: keep appt today Referrals: Star Mathis MD [Primary Care Provider] - - Critical Care Critical Care Time: No Attestation: On 05/13/21, the high probability of a clinically significant, sudden or life threatening deterioration of the following system(s) required my full and direct attention, intervention and personal management. The time I documented below is in addition to time spent performing reported procedures but includes the following listed in this critical care notation. Medical Decision Making - Medical Records Medical records reviewed: Yes: I reviewed the patient's medical records. - Fahad Inquiry Pt receiving controlled substance: No Vital Signs: 05/13/21 21:54 05/14/21 00:30 05/14/21 01:11 Temperature 98.1 F Temperature Source Oral Pulse Rate 83 83 Pulse Rate [Right] 85 Respiratory Rate 20 Blood Pressure 129/70 128/79 Blood Pressure [Right Arm] 139/72 Blood Pressure Mean [Right Arm] 94 02 Sat by Pulse Oximetry 98 90 L 96 Oxygen Delivery Method Room Air - Lab Data Lab results reviewed: Yes: I reviewed the patient's lab results. Lab Results 05/13/21 22:07: WBC 7.0, RBC 4.67, Hgb 10.0 L, Hct 34.7 L, MCV 74.3 L, MCH 21.5 L, MCHC 28.9 L, RDW 16.7, Plt Count 417, MPV 8.5, Neut % (Auto) 72.9, Lymph % (Auto) 16.4, Sullivan % (Auto) 5.6, Eos % (Auto) 4.2, Baso % (Auto) 1.0, Neut # (Auto) 5.1, Lymph # (Auto) 1.2, Sullivan # (Auto) 0.4, Eos # (Auto) 0.3, Baso # (Auto) 0.1 05/13/21 22:07: Sodium 130 L, Potassium 4.9, Chloride 87 L, Carbon Dioxide 29, Anion Gap 18.9 H, BUN 44 H, Creatinine 1.40 H, Estimated Creat Clear 61, Estimated GFR 54 L, Est GFR ( Amer) 65, Glucose 676 H*, Calcium 9.2, Magnesium 2.1, Total Bilirubin 0.5, AST 45, ALT 38, Alkaline Phosphatase 174 H, Troponin I < 0.01, C-Reactive Protein 11.4 H, Total Protein 7.9, Albumin 4.6, Globulin 3.3 H, Albumin/Globulin Ratio 1.4, Acetone Level Small 05/13/21 22:07: ESR 47 H 05/13/21 22:07: Procalcitonin 0.200 05/13/21 23:42: POC Glucose 575 H* 05/14/21 01:05: Troponin I < 0.01 05/14/21 01:05: Acetone Level None detected 05/14/21 01:29: POC Glucose 527 H* Result diagrams: 05/13/21 22:07 05/13/21 22:07 Orders (Tests/Meds): ED MEDICATIONS Generic Name Dose Route Start Last Admin Trade Name Freq PRN Reason Stop Dose Admin Sodium Chloride 1,000 mls @ 999 mls/hr 05/13/21 23:00 05/13/21 22:30 Sod Chlor 0.9% 1000ml Bag IV 05/14/21 00:00 999 mls/hr .Q1H1M CARLIN Administration Discontinued Medications Generic Name Dose Route Start Last Admin Trade Name Freq PRN Reason Stop Dose Admin Insulin Human Regular 10 unit 05/13/21 22:54 05/13/21 22:57 Insulin Human Regular 100 Units/Ml 10ml Vial IVP 05/13/21 22:55 10 unit ONCE ONE Administration Insulin Human Regular 5 unit 05/14/21 01:52 Insulin Human Regular 100 Units/Ml 10ml Vial IVP 05/14/21 01:53 ONCE ONE ORDERS Category Date Time Status Troponin I Q3H Lab 05/14/21 04:15 Ordered UA [Urinalysis and Microscopic] Stat Lab 05/13/21 22:11 Ordered Medical Decision Narrative: has pump but uncertain if working - has elevated glu but improved with ivf and insulin General Adult HPI - General Chief complaint: Hyper/Hypoglycemia Stated complaint: high blood sugar Time Seen by Provider: 05/13/21 22:05 Mode of Arrival: Wheelchair Source of Information: Patient, Medical Record Limitations: Physical Limitations Description of Symptoms (Recalled from ER Triage Doc. by RN): Pt reports his blood sugar has been high for 2 days.
[2021-05-13 22:55] LABS: Erythrocyte Sedimentation Rate 47 mm/hr (0-15)
[2021-05-13 23:49] LABS: POC Glucose,Bedside 575 (70-110)
[2021-05-14 00:30] VITALS: BP 129/70; PULSE 83; O2SAT 90
[2021-05-14 01:11] VITALS: BP 128/79; PULSE 83; O2SAT 96
[2021-05-14 01:31] VITALS: BP 152/75; PULSE 60; O2SAT 98
[2021-05-14 01:33] LABS: Acetone, Serum (Rapid) None Detected (None Detect)
[2021-05-14 01:36] LABS: POC Glucose,Bedside 527 (70-110)
[2021-05-14 01:47] LABS: Troponin I < 0.01 ng/ml (0.00-0.034)
[2021-05-14 02:00] VITALS: BP 137/65; PULSE 83; O2SAT 92
--- NOTE | 2021-05-14 02:08 | PC.NURSE ---
Called family's phone number left by . Have left 2 voicemails to let them know pt is d/c and ready for pick up worker.
[2021-05-14 02:16] VITALS: BP 137/68; PULSE 76; RESP 19; TEMP 36.7; O2SAT 95
== END 2021-05-14 02:21 | disposition home or self-care (01) ==
PROVIDERS: Emergency Provider Emergency Medicine; PCP Emergency Medicine
DX: E11.10 Type 2 diabetes mellitus with ketoacidosis without coma (principal); I48.91 Unspecified atrial fibrillation; I50.9 Heart failure, unspecified; K21.9 Gastro-esophageal reflux disease without esophagitis; E78.5 Hyperlipidemia, unspecified; I10 Essential (primary) hypertension
CPT/HCPCS: 80053; 82009; 82962; 83735; 84145; 84484; 85025; 85651; 86140; 96365; 96366; 96375; 96376; 99283

== ENCOUNTER 2021-05-14 22:16 | Emergency (ER) | payer MEDICARE, MEDICAID, SELFPAY ==
[2021-05-14 22:18] VITALS: BP 134/74; PULSE 94; RESP 20; TEMP 36.7; O2SAT 92; BMI 47.4
--- NOTE | 2021-05-14 22:29 | XR_ITS ---
PROCEDURE INFORMATION: Exam: XR Chest Exam date and time: 05/14/2021 10:29 PM Age: 51 years old Clinical indication: Injury or trauma; Fall; Blunt trauma (contusions or hematomas); Injury date: 05/14/2021 TECHNIQUE: Imaging protocol: XR of the chest. Views: 4 or more views. COMPARISON: CR XR CHEST PORTABLE 04/18/2021 2:34 PM FINDINGS: Lungs: No focal consolidation. Pleural spaces: Questionable left pleural effusion. Heart/Mediastinum: Enlarged cardiac silhouette, similar compared to the prior study. Bones/joints: No acute osseous findings. IMPRESSION: Questionable left pleural effusion.
--- NOTE | 2021-05-14 22:29 | CT_ITS ---
PROCEDURE INFORMATION: Exam: CT Cervical Spine Without Contrast Exam date and time: 05/14/2021 10:29 PM Age: 51 years old Clinical indication: Injury or trauma; Fall; Blunt trauma; Injury date: 05/14/2021 TECHNIQUE: Imaging protocol: Computed tomography images of the cervical spine without contrast. Radiation optimization: All CT scans at this facility use at least one of these dose optimization techniques: automated exposure control; mA and/or kV adjustment per patient size (includes targeted exams where dose is matched to clinical indication); or iterative reconstruction. COMPARISON: CT CERVICAL SPINE WO CON 04/18/2021 2:29 PM FINDINGS: Bones/joints: Straightening of the curvature of the cervical spine is likely positional. Nonfusion of the posterior elements of C7 could be a developmental variant. Discs/Spinal canal/Neural foramina: Multilevel degenerative changes of the cervical spine producing multiple levels of mild spinal canal stenosis. Lungs: Lung apices are normal. Vasculature: Mild atherosclerotic changes of the arteries. Soft tissues: Unremarkable. Mediastinum: Stigmata of old granulomatous disease. IMPRESSION: No acute fracture or malalignment of the cervical spine.
--- NOTE | 2021-05-14 22:29 | CT_ITS ---
PROCEDURE INFORMATION: Exam: CT Head Without Contrast Exam date and time: 05/14/2021 10:29 PM Age: 51 years old Clinical indication: Injury or trauma; Fall; Blunt trauma (contusions or hematomas); Without loss of consciousness; Injury date: 05/14/2021; Additional info: Fall small cut across bridge of nose TECHNIQUE: Imaging protocol: Computed tomography of the head without contrast. Radiation optimization: All CT scans at this facility use at least one of these dose optimization techniques: automated exposure control; mA and/or kV adjustment per patient size (includes targeted exams where dose is matched to clinical indication); or iterative reconstruction. COMPARISON: CT HEAD/BRAIN WO CON 04/18/2021 2:26 PM FINDINGS: Brain: Mild chronic brain volume loss and chronic small vessel ischemic changes. Cerebral ventricles: No ventriculomegaly. Paranasal sinuses: Visualized sinuses are unremarkable. No fluid levels. Mastoid air cells: Visualized mastoid air cells are well aerated. Orbital cavity: Postsurgical changes of the left globe. Bones/joints: Unremarkable. No acute fracture. Soft tissues: Unremarkable. IMPRESSION: No acute intracranial findings.
--- NOTE | 2021-05-14 22:29 | XR_ITS ---
PROCEDURE INFORMATION: Exam: XR Pelvis Exam date and time: 05/14/2021 10:29 PM Age: 51 years old Clinical indication: Injury or trauma; Fall; Blunt trauma (contusions or hematomas); Bilateral; Pelvic region; Injury date: 05/14/2021; Additional info: Fall trauma protocols TECHNIQUE: Imaging protocol: XR pelvis. Views: 1 or 2 view. COMPARISON: CT ABDOMEN PELVIS WO CON 04/02/2021 12:22 PM FINDINGS: Bones/joints: No evidence of acute fracture. Soft tissues: Limited due to patient's body habitus. IMPRESSION: No evidence of acute fracture. If symptoms persist, recommend repeat radiograph in 5-7 days.
[2021-05-14 22:31] LABS: POC Glucose,Bedside 485 (70-110)
[2021-05-14 22:35] LABS: Microscopic, Urine URINE MICROSCOPIC (MICROSCOPIC)
[2021-05-14 22:42] LABS: Basophils # 0.1 K/mm3 (0-0.2); Basophils % 0.6 % (0.1-2.0); Eosinophils # 0.3 K/mm3 (0.0-0.4); Hematocrit 34.9 % (42.0-52.0); Hemoglobin 9.9 g/dL (14.1-18.0); Lymphocytes # 1.4 K/mm3 (0.7-4.5); Lymphocytes % 16.8 % (10-50); Mean Corpuscular HGB Conc 28.5 g/dL (31.8-35.4); Mean Corpuscular Hemoglobin 21.2 pg (27.0-31.2); Mean Corpuscular Volume 74.3 fl (80-94); Mean Platelet Volume 8.9 fl (7.4-10.4); Monocytes # 0.5 K/mm3 (0.1-1.0); Monocytes % 5.7 % (1.7-9.3); Neutrophils # 5.8 K/mm3 (1.8-7.8); Neutrophils % 72.8 % (37.0-80.0); Platelet Count 399 K/mm3 (142-424); Red Blood Count 4.69 M/mm3 (4.60-6.20)
[2021-05-14 23:00] VITALS: BP 149/70; PULSE 79; O2SAT 95
[2021-05-14 23:09] LABS: Alanine Aminotransferase 32 U/L (12-78); Albumin Level 4.4 g/dl (3.5-5.0); Albumin/Globulin Ratio 1.4 (1.1-1.8); Alkaline Phosphatase 162 U/L (38-126); Anion Gap 16.1 mEq/L (5-15); Aspartate Amino Transferase 37 U/L (17-59); Bilirubin,Total 0.2 mg/dl (0.2-1.3); Blood Urea Nitrogen 44 mg/dl (9-20); Calcium 8.8 mg/dl (8.4-10.2); Carbon Dioxide 29 mmol/L (22.0-30.0); Chloride 96 mmol/L (98-107); Creatinine Clearance Estimated 48 mL/min (50-200); Estimated Glomerular Filt Rate 40 ml/min (>60); GFR (African American) 49 ML/MIN (>60); Globulin 3.1 g/dL (1.3-3.2); Potassium 5.1 mmoL/L (3.5-5.1); Sodium 136 mmol/L (136-145); Total Protein,Serum 7.5 g/dl (6.3-8.2)
[2021-05-14 23:11] LABS: Glucose 574 mg/dl (74-100)
[2021-05-14 23:12] LABS: Erythrocyte Sedimentation Rate 56 mm/hr (0-15)
[2021-05-14 23:14] LABS: C-Reactive Protein 21.8 mg/L (0-4)
[2021-05-14 23:18] LABS: Acetone, Serum (Rapid) None Detected (None Detect)
[2021-05-14 23:19] LABS: Appearance,Urine CLEAR (Clear); Bilirubin,Urine Negative (Negative); Blood, Urine TRACE-I (Negative); Color,Urine YELLOW (Yellow); Glucose,Urine (UA) 3+ (Negative); Ketones,Urine Negative (Negative); Leukocyte Esterase,Urine Negative (Negative); Nitrate,Urine Negative (Negative); Protein,Urine 1+ (Negative); Urobilinogen,Urine 0.2 EU/dl (0.2)
[2021-05-14 23:25] LABS: RBC,Urine Occasional #/hpf (0-3); WBC,Urine Occasional #/hpf (0-3)
[2021-05-14 23:28] LABS: Procalcitonin 0.233 ng/mL (0.0-2.0)
--- NOTE | 2021-05-14 23:33 | HMH.EDFALL ---
ED Disposition Clinical Impression: Hyperglycemia due to type 1 diabetes mellitus Concussion without loss of consciousness Qualifiers: Encounter type: initial encounter Qualified Code(s): S06.0X0A - Concussion without loss of consciousness, initial encounter Fall Qualifiers: Encounter type: initial encounter Qualified Code(s): W19.XXXA - Unspecified fall, initial encounter Disposition: Home, Self-Care Condition on Discharge: Good Instructions: How to Prevent Falls Additional Instructions: use meds and be more careful at this time Referrals: Star Mathis MD [Primary Care Provider] - - Critical Care Critical Care Time: No Attestation: On 05/14/21, the high probability of a clinically significant, sudden or life threatening deterioration of the following system(s) required my full and direct attention, intervention and personal management. The time I documented below is in addition to time spent performing reported procedures but includes the following listed in this critical care notation. Medical Decision Making - Medical Records Medical records reviewed: Yes: I reviewed the patient's medical records. - Fahad Inquiry Pt receiving controlled substance: No Vital Signs: 05/14/21 22:18 05/14/21 23:00 Temperature 98.0 F Temperature Source Oral Pulse Rate 79 Pulse Rate [Right Radial] 94 H Respiratory Rate 20 Blood Pressure 149/70 H Blood Pressure [Right Arm] 134/74 Blood Pressure Mean [Right Arm] 94 Blood Pressure Source [Right Arm] Automatic Cuff Blood Pressure Position [Right Arm] Sitting 02 Sat by Pulse Oximetry 92 L 95 Oxygen Delivery Method Room Air Room Air - Lab Data Lab results reviewed: Yes: I reviewed the patient's lab results. Lab Results 05/14/21 22:22: POC Glucose 485 H* 05/14/21 22:30: Urine Color Yellow, Urine Appearance Clear, Urine pH 6.0, Ur Specific [place] 1.020, Urine Protein 1+, Urine Glucose (UA) 3+, Urine Ketones Negative, Urine Blood Trace-i, Urine Nitrate Negative, Urine Bilirubin Negative, Urine Urobilinogen 0.2, Ur Leukocyte Esterase Negative, Urine RBC Occasional, Urine WBC Occasional, Ur Renal Epithelial Cell 10-20 05/14/21 22:30: WBC 8.0, RBC 4.69, Hgb 9.9 L, Hct 34.9 L, MCV 74.3 L, MCH 21.2 L, MCHC 28.5 L, RDW 17.0, Plt Count 399, MPV 8.9, Neut % (Auto) 72.8, Lymph % (Auto) 16.8, Kemper % (Auto) 5.7, Eos % (Auto) 4.0, Baso % (Auto) 0.6, Neut # (Auto) 5.8, Lymph # (Auto) 1.4, Kemper # (Auto) 0.5, Eos # (Auto) 0.3, Baso # (Auto) 0.1 05/14/21 22:30: Sodium 136, Potassium 5.1, Chloride 96 L, Carbon Dioxide 29, Anion Gap 16.1 H, BUN 44 H, Creatinine 1.80 H D, Estimated Creat Clear 48, Estimated GFR 40 L, Est GFR ( Amer) 49 L D, Glucose 574 H*, Calcium 8.8, Total Bilirubin 0.2, AST 37, ALT 32, Alkaline Phosphatase 162 H, C-Reactive Protein 21.8 H D, Total Protein 7.5, Albumin 4.4, Globulin 3.1, Albumin/Globulin Ratio 1.4 05/14/21 22:30: ESR 56 H 05/14/21 22:30: Acetone Level None detected Result diagrams: 05/14/21 22:30 05/14/21 22:30 Orders (Tests/Meds): ED MEDICATIONS Generic Name Dose Route Start Last Admin Trade Name Freq PRN Reason Stop Dose Admin Sodium Chloride 1,000 mls @ 999 mls/hr 05/14/21 22:45 05/14/21 22:50 Sod Chlor 0.9% 1000ml Bag IV 05/14/21 23:45 999 mls/hr .Q1H1M CARLIN Administration Discontinued Medications Generic Name Dose Route Start Last Admin Trade Name Freq PRN Reason Stop Dose Admin Insulin Human Regular 10 unit 05/14/21 22:39 05/14/21 22:50 Insulin Human Regular 100 Units/Ml 10ml Vial IVP 05/14/21 22:40 10 unit ONCE ONE Administration ORDERS Category Date Time Status POC Glucose,Bedside Stat Lab 05/14/21 22:29 Ordered Procalcitonin Stat Lab 05/14/21 22:30 Received Trop I [Troponin I] Stat Lab 05/14/21 22:30 Received Troponin I Q3H Lab 05/15/21 01:45 Ordered Troponin I Q3H Lab 05/15/21 04:45 Ordered - Radiology Data #1 Image(s): Chest, Pelvis Image Reviewed: Bryan
[2021-05-14 23:51] LABS: Troponin I < 0.01 ng/ml (0.00-0.034)
[2021-05-15 00:22] VITALS: BP 135/63; PULSE 83; RESP 20; TEMP 36.8; O2SAT 93
== END 2021-05-15 00:25 | disposition home or self-care (01) ==
PROVIDERS: Emergency Provider Emergency Medicine; PCP Emergency Medicine
DX: S06.0X0A Concussion without loss of consciousness, initial encounter (principal); E10.65 Type 1 diabetes mellitus with hyperglycemia; W01.0XXA Fall on same level from slipping, tripping and stumbling without subsequent striking against object, initial encounter; Y92.019 Unspecified place in single-family (private) house as the place of occurrence of the external cause; K21.9 Gastro-esophageal reflux disease without esophagitis; I10 Essential (primary) hypertension; E78.5 Hyperlipidemia, unspecified; I25.10 Atherosclerotic heart disease of native coronary artery without angina pectoris; F41.8 Other specified anxiety disorders; I50.9 Heart failure, unspecified
CPT/HCPCS: 70450; 71045; 72125; 72170; 80053; 81001; 82009; 82962; 84145; 84484; 85025; 85651; 86140; 96365; 96375; 99283

== ENCOUNTER 2021-05-25 12:59 | Emergency (ER) | payer MEDICARE, MEDICAID, SELFPAY ==
[2021-05-25 13:00] VITALS: BP 115/57; PULSE 96; RESP 12; TEMP 36.8; O2SAT 88; BMI 48.6
[2021-05-25 15:15] LABS: Basophils % 0.5 % (0.1-2.0); Chloride 92 mmol/L (98-107); Eosinophils # 0.3 K/mm3 (0.0-0.4); Eosinophils % 2.9 % (0.1-12.0); Hematocrit 31.2 % (42.0-52.0); Hemoglobin 8.9 g/dL (14.1-18.0); Lymphocytes # 0.8 K/mm3 (0.7-4.5); Lymphocytes % 9.5 % (10-50); Mean Corpuscular HGB Conc 28.5 g/dL (31.8-35.4); Mean Corpuscular Hemoglobin 20.7 pg (27.0-31.2); Mean Corpuscular Volume 72.6 fl (80-94); Mean Platelet Volume 8.2 fl (7.4-10.4); Monocytes # 0.6 K/mm3 (0.1-1.0); Monocytes % 7.2 % (1.7-9.3); Neutrophils # 6.9 K/mm3 (1.8-7.8); Platelet Count 367 K/mm3 (142-424); Potassium 5.2 mmoL/L (3.5-5.1); Red Blood Count 4.29 M/mm3 (4.60-6.20); Red Cell Distribution Width 16.9 % (11.5-17.5); Sodium 133 mmol/L (136-145); White Blood Count 8.6 K/mm3 (4.8-10.8)
[2021-05-25 15:17] LABS: Blood Urea Nitrogen 45 mg/dl (9-20); Creatinine Clearance Estimated 29 mL/min (50-200); Estimated Glomerular Filt Rate 23 ml/min (>60); GFR (African American) 28 ML/MIN (>60)
[2021-05-25 15:18] LABS: Alanine Aminotransferase 52 U/L (12-78); Albumin Level 4.1 g/dl (3.5-5.0); Albumin/Globulin Ratio 1.4 (1.1-1.8); Alkaline Phosphatase 150 U/L (38-126); Anion Gap 16.2 mEq/L (5-15); Aspartate Amino Transferase 51 U/L (17-59); Bilirubin,Total 0.3 mg/dl (0.2-1.3); Calcium 8.7 mg/dl (8.4-10.2); Carbon Dioxide 30 mmol/L (22.0-30.0); Total Protein,Serum 7.1 g/dl (6.3-8.2)
[2021-05-25 15:27] LABS: Glucose 445 mg/dl (74-100)
[2021-05-25 15:31] LABS: ABG Base Excess 0.9 mmol/L (-2.4-2.3); ABG HCO3 27.4 mmhg (22.0-26.0); ABG Oxygen Saturation 95 % (90-100); ABG PH 7.29 mmol/L (7.35-7.45); ABG PO2 86.2 mmhg (80-100); ABG TCO2 29.2 mmhg (23-27); Allen's Test Acceptable; Oxygen 2L NC %; Source Left Radial
[2021-05-25 15:33] LABS: ABG PCO2 58.2 mmhg (35.0-45.0)
[2021-05-25 15:45] LABS: Acetone, Serum (Rapid) None Detected (None Detect)
--- NOTE | 2021-05-25 15:58 | CT_ITS ---
PROCEDURE INFORMATION: Exam: CT Head Without Contrast Exam date and time: 05/25/2021 3:58 PM Age: 51 years old Clinical indication: Altered mental status/memory loss; Confusion or disorientation TECHNIQUE: Imaging protocol: Computed tomography of the head without contrast. Radiation optimization: All CT scans at this facility use at least one of these dose optimization techniques: automated exposure control; mA and/or kV adjustment per patient size (includes targeted exams where dose is matched to clinical indication); or iterative reconstruction. COMPARISON: CT HEAD/BRAIN WO CON 05/14/2021 10:34 PM FINDINGS: Brain: Normal. No hemorrhage. Unremarkable white matter. No mass effect. Cerebral ventricles: No ventriculomegaly. Paranasal sinuses: Visualized sinuses are unremarkable. No fluid levels. Mastoid air cells: Visualized mastoid air cells are well aerated. Bones/joints: Unremarkable. No acute fracture. Soft tissues: Some air is seen in somewhat linear distribution in the pre maxillary soft tissues as well as in the left nursing home administrator space. This is favored to be related to IV access. Clinical correlation recommended. Left globe postsurgical changes again seen. IMPRESSION: No acute intracranial pathology
--- NOTE | 2021-05-25 15:58 | PC.NURSE ---
Nursing staff observed pt getting himself out of bed by climbing around bedrails, IV tubing still attached with fluids running. Staff ran into room to untangle tubing in attempt to prevent IV being ripped out. Pt steadied on feet by staff and assisted to chair in his room. Staff educated pt on the need to call for assistance when wanting to get up out of bed or chair. Call light in reach.
[2021-05-25 16:00] VITALS: BP 130/71; PULSE 104; RESP 15; O2SAT 92
--- NOTE | 2021-05-25 17:45 | PC.NURSE ---
Pt's pcp speaking with Dr Mathis
--- NOTE | 2021-05-25 18:05 | PC.NURSE ---
updating pt's on care plan.
--- NOTE | 2021-05-25 18:17 | PC.NURSE ---
pt continues to get out of bed. side rails up x 2. pt informed several times to stay in bed.
--- NOTE | 2021-05-25 18:31 | PC.NURSE ---
Pt has taken off vs monitors numerous times. I have asked him to keep them on but he is still taking them off. Will continue to monitor.
[2021-05-25 19:15] VITALS: BP 120/62; PULSE 100; RESP 21; TEMP 36.6; O2SAT 93
--- NOTE | 2021-05-25 19:21 | HMH.EDGENADL ---
ED Disposition Clinical Impression: Acute kidney injury superimposed on CKD, Hyperglycemia Altered mental status Qualifiers: Coma depth: Griselda coma 13-15 Coma timing: at hospital admission Disposition: Home, Self-Care Condition on Discharge: Fair Instructions: DI for Hyperglycemia -- Adult, Chronic Kidney Disease Referrals: Star Mathis MD [Primary Care Provider] - Time of Disposition: 19:29 - Critical Care Critical Care Time: Yes Attestation: On 05/25/21, the high probability of a clinically significant, sudden or life threatening deterioration of the following system(s) required my full and direct attention, intervention and personal management. The time I documented below is in addition to time spent performing reported procedures but includes the following listed in this critical care notation. Total Critical Care Time: 60 Vital system(s) involved:: Circulatory Failure, Central Nervous System, Metabolic Failure My critical care processes included: Assessment & monitoring of V/S, Initial and Re-exams, Data Review/Interpretation, Coordinating Care, Documentation Medical Decision Making - Medical Records Medical records reviewed: Yes: I reviewed the patient's medical records. - Fahad Inquiry Pt receiving controlled substance: No Vital Signs: 05/25/21 13:00 05/25/21 16:00 Temperature 98.2 F Temperature Source Oral Pulse Rate 104 H Pulse Rate [Radial] 96 H Respiratory Rate 12 15 Blood Pressure 130/71 Blood Pressure [Right Arm] 115/57 L Blood Pressure Mean [Right Arm] 76 Blood Pressure Position [Right Arm] Sitting 02 Sat by Pulse Oximetry 88 L 92 L Oxygen Delivery Method Room Air - Lab Data Lab Results 05/25/21 14:53: Specimen Source Left radial, O2 % 2l nc, ABG pH 7.29 L, ABG pCO2 58.2 H, ABG pO2 86.2, ABG HCO3 27.4 H, ABG Total CO2 29.2 H, ABG O2 Saturation 95, ABG Base Excess 0.9, Mj Test Acceptable 05/25/21 15:02: WBC 8.6, RBC 4.29 L, Hgb 8.9 L, Hct 31.2 L, MCV 72.6 L, MCH 20.7 L, MCHC 28.5 L, RDW 16.9, Plt Count 367, MPV 8.2, Neut % (Auto) 80.0, Lymph % (Auto) 9.5 L, Fleming % (Auto) 7.2, Eos % (Auto) 2.9, Baso % (Auto) 0.5, Neut # (Auto) 6.9, Lymph # (Auto) 0.8, Fleming # (Auto) 0.6, Eos # (Auto) 0.3, Baso # (Auto) 0.0 05/25/21 15:02: Sodium 133 L, Potassium 5.2 H, Chloride 92 L, Carbon Dioxide 30, Anion Gap 16.2 H, BUN 45 H, Creatinine 2.90 H, Estimated Creat Clear 29, Estimated GFR 23 L, Est GFR ( Amer) 28 L, Glucose 445 H*, Calcium 8.7, Total Bilirubin 0.3, AST 51, ALT 52, Alkaline Phosphatase 150 H, Total Protein 7.1, Albumin 4.1, Globulin 3.0, Albumin/Globulin Ratio 1.4 05/25/21 15:02: Acetone Level None detected Result diagrams: 05/25/21 15:02 05/25/21 15:02 Orders (Tests/Meds): ED MEDICATIONS Generic Name Dose Route Start Last Admin Trade Name Freq PRN Reason Stop Dose Admin Lactated Ringer's 1,000 mls @ 999 mls/hr 05/25/21 18:00 05/25/21 18:53 Lactated Ringer's 1000 Ml Bag IV 05/25/21 19:00 Not Given .Q1H1M CARLIN Discontinued Medications Generic Name Dose Route Start Last Admin Trade Name Freq PRN Reason Stop Dose Admin Lactated Ringer's 1,000 mls @ 999 mls/hr 05/25/21 15:00 05/25/21 15:08 Lactated Ringer's 1000 Ml Bag IV 05/25/21 16:00 999 mls/hr .Q1H1M CARLIN Administration Insulin Human Regular 10 unit 05/25/21 17:48 05/25/21 18:05 Insulin Human Regular 100 Units/Ml 10ml Vial IVP 05/25/21 17:49 10 unit ONCE ONE Administration Naloxone HCl 1 mg 05/25/21 17:47 05/25/21 18:01 Naloxone 2mg/2ml Syringe IV 05/25/21 17:48 1 mg ONCE ONE Administration ORDERS Category Date Time Status Drug Screen,Urine Stat Lab 05/25/21 14:55 Ordered Urinalysis and Microscopic Stat Lab 05/25/21 14:51 Ordered Medical Decision Narrative: 51-year-old male who presents to the emergency department with vague complaints. Unable to speak to patient or decipher what exactly his complaints are. He is alert and oriented
[2021-05-25 21:48] LABS: POC Glucose,Bedside 321 (70-110)
[2021-06-07 14:09] LABS: POC Glucose,Bedside 492 (70-110)
== END 2021-05-25 19:15 | disposition home or self-care (01) ==
PROVIDERS: Emergency Provider Emergency Medicine; PCP Emergency Medicine
DX: N17.9 Acute kidney failure, unspecified (principal); N18.9 Chronic kidney disease, unspecified; E11.65 Type 2 diabetes mellitus with hyperglycemia; I10 Essential (primary) hypertension; J44.9 Chronic obstructive pulmonary disease, unspecified; I48.91 Unspecified atrial fibrillation; K21.9 Gastro-esophageal reflux disease without esophagitis; I25.10 Atherosclerotic heart disease of native coronary artery without angina pectoris; Z79.899 Other long term (current) drug therapy
CPT/HCPCS: 70450; 80053; 82009; 82803; 82962; 85025; 96365; 96372; 96375; J2310

== ENCOUNTER 2021-05-25 22:36 | Emergency (ER) | payer MEDICARE, MEDICAID, SELFPAY ==
[2021-05-25 22:15] VITALS: BP 114/78; PULSE 105; RESP 20; TEMP 37.7; O2SAT 96; BMI 47.1
--- NOTE | 2021-05-25 22:26 | XR_ITS ---
PROCEDURE INFORMATION: Exam: XR Right Hand Exam date and time: 05/25/2021 10:26 PM Age: 51 years old Clinical indication: Injury or trauma; Fall; Blunt trauma (contusions or hematomas); Left; Index finger; Additional info: Fall pain TECHNIQUE: Imaging protocol: XR Right hand. Views: 3 or more views. COMPARISON: No relevant prior studies available. FINDINGS: Bones/joints: No fracture. No malalignment. Mild scattered degenerative changes. Soft tissues: Normal. IMPRESSION: No acute findings.
--- NOTE | 2021-05-25 22:26 | XR_ITS ---
PROCEDURE INFORMATION: Exam: XR Pelvis Exam date and time: 05/25/2021 10:26 PM Age: 51 years old Clinical indication: Injury or trauma; Fall; Blunt trauma (contusions or hematomas); Bilateral; Pelvic region TECHNIQUE: Imaging protocol: XR pelvis. Views: 1 or 2 view. COMPARISON: CR XR PELVIS 1-2V 05/14/2021 10:34 PM FINDINGS: Bones/joints: Unremarkable. No acute fracture. Soft tissues: Unremarkable. IMPRESSION: No acute findings. For high or persistent clinical concern, CT is offered
--- NOTE | 2021-05-25 22:26 | XR_ITS ---
PROCEDURE INFORMATION: Exam: XR Chest Exam date and time: 05/25/2021 10:26 PM Age: 51 years old Clinical indication: Injury or trauma; Fall; Blunt trauma (contusions or hematomas) TECHNIQUE: Imaging protocol: XR of the chest. Views: 4 or more views. COMPARISON: CR XR CHEST AP 05/14/2021 10:35 PM FINDINGS: Lungs: Unremarkable. No consolidation. Pleural spaces: Unremarkable. No pleural effusion. No pneumothorax. Heart/Mediastinum: Unremarkable. No cardiomegaly. Bones/joints: Unremarkable. IMPRESSION: No acute findings.
[2021-05-25 23:54] LABS: Basophils % 0.4 % (0.1-2.0); Eosinophils # 0.2 K/mm3 (0.0-0.4); Hematocrit 29.4 % (42.0-52.0); Hemoglobin 8.7 g/dL (14.1-18.0); Lymphocytes % 13.1 % (10-50); Mean Corpuscular HGB Conc 29.7 g/dL (31.8-35.4); Mean Corpuscular Hemoglobin 20.8 pg (27.0-31.2); Mean Platelet Volume 7.8 fl (7.4-10.4); Monocytes # 0.6 K/mm3 (0.1-1.0); Monocytes % 7.4 % (1.7-9.3); Neutrophils % 76.1 % (37.0-80.0); Platelet Count 361 K/mm3 (142-424); Red Cell Distribution Width 16.6 % (11.5-17.5); White Blood Count 7.9 K/mm3 (4.8-10.8)
[2021-05-25 23:57] LABS: Alanine Aminotransferase 43 U/L (12-78); Albumin Level 4.1 g/dl (3.5-5.0); Albumin/Globulin Ratio 1.4 (1.1-1.8); Alkaline Phosphatase 142 U/L (38-126); Anion Gap 11.4 mEq/L (5-15); Aspartate Amino Transferase 45 U/L (17-59); Bilirubin,Total 0.3 mg/dl (0.2-1.3); Blood Urea Nitrogen 43 mg/dl (9-20); Calcium 8.8 mg/dl (8.4-10.2); Carbon Dioxide 31 mmol/L (22.0-30.0); Chloride 93 mmol/L (98-107); Creatinine Clearance Estimated 36 mL/min (50-200); Estimated Glomerular Filt Rate 29 ml/min (>60); GFR (African American) 35 ML/MIN (>60); Glucose 358 mg/dl (74-100); Potassium 4.4 mmoL/L (3.5-5.1); Sodium 131 mmol/L (136-145); Total Protein,Serum 7.1 g/dl (6.3-8.2)
--- NOTE | 2021-05-26 00:50 | HMH.EDFALL ---
ED Disposition Clinical Impression: Hyperglycemia due to diabetes mellitus, Neuropathy, Renal insufficiency Fall Qualifiers: Encounter type: initial encounter Qualified Code(s): W19.XXXA - Unspecified fall, initial encounter Disposition: Home, Self-Care Condition on Discharge: Good Instructions: How to Prevent Falls Additional Instructions: see pcp as op for follow up Referrals: Star Mathis MD [Primary Care Provider] - - Critical Care Critical Care Time: No Attestation: On 05/25/21, the high probability of a clinically significant, sudden or life threatening deterioration of the following system(s) required my full and direct attention, intervention and personal management. The time I documented below is in addition to time spent performing reported procedures but includes the following listed in this critical care notation. Medical Decision Making - Medical Records Medical records reviewed: Yes: I reviewed the patient's medical records. - Fahad Inquiry Pt receiving controlled substance: No Vital Signs: 05/25/21 22:15 05/26/21 02:09 Temperature 99.8 F H 98.6 F Temperature Source Oral Oral Pulse Rate 111 H Pulse Rate [Right Radial] 105 H Respiratory Rate 20 16 Blood Pressure 133/46 L Blood Pressure [Right Arm] 114/78 Blood Pressure Mean [Right Arm] 90 Blood Pressure Source [Right Arm] Automatic Cuff Blood Pressure Position [Right Arm] Sitting 02 Sat by Pulse Oximetry 96 Oxygen Delivery Method Room Air Room Air - Lab Data Lab results reviewed: Yes: I reviewed the patient's lab results. Lab Results 05/25/21 23:35: WBC 7.9, RBC 4.20 L, Hgb 8.7 L, Hct 29.4 L, MCV 70.0 L, MCH 20.8 L, MCHC 29.7 L, RDW 16.6, Plt Count 361, MPV 7.8, Neut % (Auto) 76.1, Lymph % (Auto) 13.1, [place] % (Auto) 7.4, Eos % (Auto) 3.0, Baso % (Auto) 0.4, Neut # (Auto) 6.0, Lymph # (Auto) 1.0, [place] # (Auto) 0.6, Eos # (Auto) 0.2, Baso # (Auto) 0.0 05/25/21 23:35: Sodium 131 L, Potassium 4.4, Chloride 93 L, Carbon Dioxide 31 H, Anion Gap 11.4, BUN 43 H, Creatinine 2.40 H, Estimated Creat Clear 36, Estimated GFR 29 L, Est GFR ( Amer) 35 L D, Glucose 358 H, Calcium 8.8, Total Bilirubin 0.3, AST 45, ALT 43, Alkaline Phosphatase 142 H, Total Protein 7.1, Albumin 4.1, Globulin 3.0, Albumin/Globulin Ratio 1.4 Result diagrams: 05/25/21 23:35 05/25/21 23:35 Orders (Tests/Meds): ED MEDICATIONS Discontinued Medications Generic Name Dose Route Start Last Admin Trade Name Freq PRN Reason Stop Dose Admin Sodium Chloride 1,000 mls @ 999 mls/hr 05/25/21 22:30 05/26/21 00:09 Sod Chlor 0.9% 1000ml Bag IV 05/25/21 23:30 999 mls/hr .Q1H1M CARLIN Administration Insulin Human Regular 5 unit 05/26/21 00:12 05/26/21 00:27 Insulin Human Regular 100 Units/Ml 10ml Vial IVP 05/26/21 00:13 5 unit ONCE ONE Administration Ondansetron HCl 4 mg 05/26/21 00:02 05/26/21 00:08 Ondansetron 4mg/2ml Vial IV 05/26/21 00:03 4 mg ONCE ONE Administration - Radiology Data #1 Image(s): Chest, Hand, Pelvis Image Reviewed: Yes I have reviewed radiologist's interpretation Preliminary Findings: No Fracture Seen Medical Decision Narrative: has diabetes and renal insuff but stable at this time and call be followed as op Fall HPI - General Chief Complaint: Fall Stated Complaint: Fall Time Seen by Provider: 05/26/21 00:00 Mode of Arrival: EMS Source of Information: Patient, EMS, Medical Record Limitations: No Limitations Description of Symptoms (Recalled from ER Triage Doc. by RN): Pt was discharged from this ED recently and he states when he went to get out of the car his legs gave out and he fell. Pt denies LOC or hitting head. Denies neck or hip pain. He only reports injuring his right index finger. No obvious deformity noted to right index finger. - History of Present Illness HPI Narrative: legs get shakey and has falls - hx of lower leg edema and problems with his diabetes MD compla
[2021-05-26 02:09] VITALS: BP 133/46; PULSE 111; RESP 16; TEMP 37; O2SAT 93
== END 2021-05-26 02:28 | disposition home or self-care (01) ==
PROVIDERS: Emergency Provider Emergency Medicine; PCP Emergency Medicine
DX: S00.93XA Contusion of unspecified part of head, initial encounter (principal); S60.021A Contusion of right index finger without damage to nail, initial encounter; G62.9 Polyneuropathy, unspecified; E11.65 Type 2 diabetes mellitus with hyperglycemia; W18.39XA Other fall on same level, initial encounter; N28.9 Disorder of kidney and ureter, unspecified; K21.9 Gastro-esophageal reflux disease without esophagitis; I25.10 Atherosclerotic heart disease of native coronary artery without angina pectoris
CPT/HCPCS: 70450; 71045; 72170; 73130; 80053; 82009; 82803; 82962; 85025; 96365; 96366; 96372; 96375; 99282; J2310; J2405

== ENCOUNTER 2021-05-29 12:09 | Emergency (ER) | payer MEDICARE, MEDICAID, SELFPAY ==
[2021-05-29 12:10] VITALS: BP 138/74; PULSE 82; RESP 16; TEMP 36.6; O2SAT 98; BMI 47.1
--- NOTE | 2021-05-29 13:30 | PC.NURSE ---
pt triaged for decision and pt was agreeable to be seen in the [facility] for evaluation. pt told [facility] staff he did not want to wait in the waiting room and wanted to be seen in the ed. pt was placed in the waiting room until ed room became available. pt told registration staff he was just going to leave because he didn't want to wait to be seen.
[2021-05-29 13:35] VITALS: BP 0/0; PULSE 0; RESP 0; TEMP -17.7; TEMP 0; O2SAT 0
== END 2021-05-29 13:39 | disposition home or self-care (01) ==
LOC: UTC 12:35 → ER 13:16
PROVIDERS: Emergency Provider Nurse Practitioner Family; PCP Emergency Medicine
DX: Z53.21 Procedure and treatment not carried out due to patient leaving prior to being seen by health care provider (principal); K00.6 Disturbances in tooth eruption
CPT/HCPCS: G0463; 99211

== ENCOUNTER 2021-05-29 21:11 | Emergency (ER) | payer MEDICARE, MEDICAID, SELFPAY ==
[2021-05-29 21:14] VITALS: BP 154/75; PULSE 82; RESP 21; TEMP 36.7; O2SAT 94; BMI 47.1
--- NOTE | 2021-05-29 22:24 | HMH.EDDENT ---
ED Disposition Clinical Impression: Pain, dental Disposition: Home, Self-Care Condition on Discharge: Good Instructions: DI for Dental Pain Additional Instructions: call pcp for follow up Referrals: Star Mathis MD [Primary Care Provider] - - Critical Care Critical Care Time: No Attestation: On 05/29/21, the high probability of a clinically significant, sudden or life threatening deterioration of the following system(s) required my full and direct attention, intervention and personal management. The time I documented below is in addition to time spent performing reported procedures but includes the following listed in this critical care notation. Medical Decision Making - Medical Records Medical records reviewed: Yes: I reviewed the patient's medical records. - Fahad Inquiry Pt receiving controlled substance: No Vital Signs: 05/29/21 21:14 Temperature 98.0 F Temperature Source Oral Pulse Rate [Right Radial] 82 Respiratory Rate 21 Blood Pressure [Right Arm] 154/75 H Blood Pressure Mean [Right Arm] 101 Blood Pressure Source [Right Arm] Automatic Cuff Blood Pressure Position [Right Arm] Sitting 02 Sat by Pulse Oximetry 94 L Oxygen Delivery Method Room Air - Lab Data Lab results reviewed: Yes: I reviewed the patient's lab results. Orders (Tests/Meds): ED MEDICATIONS Discontinued Medications Generic Name Dose Route Start Last Admin Trade Name Freq PRN Reason Stop Dose Admin Acetaminophen/Codeine Phosphate 1 karel 05/29/21 22:17 Acetaminophen 300mg W/Codeine 30mg Take Home Pack (6) PO 05/29/21 22:18 ONCE ONE Medical Decision Narrative: will have pt call dentist at this time Dental HPI - General Chief complaint: Dental/Oral Stated complaint: Tooth pain Time Seen by Provider: 05/29/21 22:00 Mode of Arrival: Wheelchair Source of Information: Patient, Medical Record Limitations: No Limitations Description of Symptoms (Recalled from ER Triage Doc. by RN): Pt reports having his teeth pulled 4 days ago and c/o pain in mouth. He says he ran out of pain medications. - History of Present Illness HPI Narrative: pt with post dental extraction pain - out of pain meds Complaint: tooth pain Onset (ago): day(s) Duration: intermittent Severity: moderate Context: other (post extraction ) Treatment prior to arrival: recent dentist visit - Related Data Home Medications Medication Instructions Recorded Confirmed aspirin 81 mg tablet,delayed 81 mg PO DAILY tab 10/27/17 05/18/21 release cholecalciferol (vitamin D3) 1,250 1,250 mcg PO WEEKLY 01/18/21 05/18/21 mcg (50,000 unit) capsule Doxazosin Mesylate [Cardura 4mg 2 mg PO BID 01/29/21 05/18/21 Tab] Potassium Chloride 20 meq PO DAILY 03/08/21 05/18/21 Trazodone HCl 50 mg PO HS 03/08/21 05/18/21 lorazepam 1 mg tablet 1 mg PO BIDP PRN 03/22/21 05/18/21 Budesonide/Formoterol Fumarate 2 puff IH BID 04/02/21 05/18/21 [Budesonide-Formoterol 160-4.5] Torsemide [Demadex] 40 mg PO DAILY 04/02/21 05/18/21 Duloxetine HCl [Cymbalta] 60 mg PO BID 04/03/21 05/18/21 carvediloL [Carvedilol 25mg Tab] 25 mg PO BID 04/25/21 05/18/21 [id number]/Sod Sulf,Bicarb,Cl/KCl 240 ml PO Q10M 05/05/21 05/18/21 [Peg-3350 and Electrolytes Soln] Previous Rx's Medication Instructions Recorded atorvastatin 80 mg tablet 80 mg PO DAILY #30 tab 02/22/21 gabapentin 800 mg tablet 800 mg PO TID PRN #90 tab 03/22/21 albuterol sulfate 90 mcg/actuation 2 puff INHALATION Q4-6H PRN #8.5 g 03/25/21 aerosol inhaler cyclobenzaprine 10 mg tablet 10 mg PO BID PRN #30 tab 04/19/21 buspirone 30 mg tablet 30 mg PO BID #60 tab 05/06/21 oxycodone-acetaminophen 5 mg-325 1 tab PO DAILY PRN #6 tab 05/10/21 mg tablet pantoprazole 40 mg tablet,delayed 40 mg PO DAILY #90 tab 05/18/21 release tramadol 50 mg tablet 50 mg PO Q8H PRN #20 tab 05/18/21 quetiapine 300 mg tablet See Rx Instructions .ROUTE 05/24/21 .COMPLEX #180 tab insulin NPH-regular 7
[2021-05-29 22:40] VITALS: BP 141/61; PULSE 80; RESP 21; TEMP 36.7; O2SAT 94
== END 2021-05-29 22:41 | disposition home or self-care (01) ==
PROVIDERS: Emergency Provider Emergency Medicine; PCP Emergency Medicine
DX: K08.89 Other specified disorders of teeth and supporting structures (principal); I48.0 Paroxysmal atrial fibrillation; I10 Essential (primary) hypertension; E78.5 Hyperlipidemia, unspecified; K21.9 Gastro-esophageal reflux disease without esophagitis; E11.9 Type 2 diabetes mellitus without complications; F41.8 Other specified anxiety disorders; Z79.899 Other long term (current) drug therapy
CPT/HCPCS: 99281

== ENCOUNTER 2021-06-02 11:21 | Emergency (ER) | payer MEDICARE, MEDICAID, SELFPAY ==
[2021-06-02 11:46] VITALS: BP 144/62; PULSE 93; RESP 18; TEMP 36.9; O2SAT 95; BMI 47.1
[2021-06-02 12:00] LABS: UTC Strep Screen (Rapid) Negative (Negative)
--- NOTE | 2021-06-02 12:09 | HMH.EDUTC ---
[facility] Clinical Impression: Pain, dental Disposition: Home, Self-Care Condition on Discharge: Good Additional Instructions: You will need to follow up with the Dentist that removed the teeth for further evaluation and sutures You may gargle warm salt water to help with your throat pain Follow up with your Family Doctor for further evaluation and treatment Return if needed Straight to ER if any life threatening symptoms Referrals: Star Mathis MD [Primary Care Provider] - As needed Dr Ulises Lara [Other] Time of Disposition: 12:27 Medical Decision Making - Fahad Inquiry Pt receiving controlled substance: No Fahad was queried for this patient: No Vital Signs: 06/02/21 11:46 Temperature 98.5 F Temperature Source Oral Pulse Rate [Left] 93 H Respiratory Rate 18 Blood Pressure [Right Arm] 144/62 H Blood Pressure Mean [Right Arm] 89 02 Sat by Pulse Oximetry 95 - Lab Data Lab Results 06/02/21 11:56: Strep Scn Rapid Clinic Negative Orders (Tests/Meds): ORDERS Category Date Time Status Strep Screen Confirmation Routine Micro 06/02/21 11:56 Received [facility] [place] - General Stated complaint: sore throat,cough,SOA Time Seen by Provider: 06/02/21 12:09 Mode of Arrival: Ambulatory Source of Information: Patient Limitations: No Limitations Description of Symptoms (Recalled from Triage Doc. by RN): pt c/o sore throat and SANCHEZ. pt states he had some teeth cut out 4/5 days ago and he wants them looked at. HEENT Symptoms (Recalled from RN notes): Yes (sore throat and SANCHEZ) Resp Symptoms (Recalled from RN notes): No Skin Symptoms (Recalled from RN notes): No MS Symptoms (Recalled from RN notes): No Functional Status (Recalled from RN notes): wnl - History of Present Illness Provider Complaint: Patient states that he recently had some teeth cut out about 4-5 days ago States that he has been having sore throat and thinks it is due to the stitches in his gums rubbing against his tongue States that he was hoping that someone would cut the stitches out so he came in - Related Data Home Medications Medication Instructions Recorded Confirmed aspirin 81 mg tablet,delayed 81 mg PO DAILY tab 10/27/17 05/18/21 release cholecalciferol (vitamin D3) 1,250 1,250 mcg PO WEEKLY 01/18/21 05/18/21 mcg (50,000 unit) capsule Doxazosin Mesylate [Cardura 4mg 2 mg PO BID 01/29/21 05/18/21 Tab] Potassium Chloride 20 meq PO DAILY 03/08/21 05/18/21 Trazodone HCl 50 mg PO HS 03/08/21 05/18/21 lorazepam 1 mg tablet 1 mg PO BIDP PRN 03/22/21 05/18/21 Budesonide/Formoterol Fumarate 2 puff IH BID 04/02/21 05/18/21 [Budesonide-Formoterol 160-4.5] Torsemide [Demadex] 40 mg PO DAILY 04/02/21 05/18/21 Duloxetine HCl [Cymbalta] 60 mg PO BID 04/03/21 05/18/21 carvediloL [Carvedilol 25mg Tab] 25 mg PO BID 04/25/21 05/18/21 [id number]/Sod Sulf,Bicarb,Cl/KCl 240 ml PO Q10M 05/05/21 05/18/21 [Peg-3350 and Electrolytes Soln] Previous Rx's Medication Instructions Recorded gabapentin 800 mg tablet 800 mg PO TID PRN #90 tab 03/22/21 albuterol sulfate 90 mcg/actuation 2 puff INHALATION Q4-6H PRN #8.5 g 03/25/21 aerosol inhaler cyclobenzaprine 10 mg tablet 10 mg PO BID PRN #30 tab 04/19/21 buspirone 30 mg tablet 30 mg PO BID #60 tab 05/06/21 oxycodone-acetaminophen 5 mg-325 1 tab PO DAILY PRN #6 tab 05/10/21 mg tablet pantoprazole 40 mg tablet,delayed 40 mg PO DAILY #90 tab 05/18/21 release tramadol 50 mg tablet 50 mg PO Q8H PRN #20 tab 05/18/21 quetiapine 300 mg tablet See Rx Instructions .ROUTE 05/24/21 .COMPLEX #180 tab insulin NPH-regular 70-30 U-100 50 unit SQ BID #15 ml 05/25/21 insulin 100 unit/mL subcutaneous pen insulin glargine U-300 conc 300 50 unit SQ HS #6 ml 05/25/21 unit/mL (3 mL) subcutaneous pen atorvastatin 80 mg tablet 80 mg PO DAILY #30 tab 05/31/21 Allergies Allergy/AdvReac Type Severity Reaction Status Date / Time pregabalin [From Lyrica] AdvReac made skin Verified
[2021-06-02 12:38] VITALS: BP 144/62; PULSE 93; RESP 18; TEMP 36.9
== END 2021-06-02 12:48 | disposition home or self-care (01) ==
PROVIDERS: Emergency Provider Nurse Practitioner; PCP Emergency Medicine
DX: K08.89 Other specified disorders of teeth and supporting structures (principal); K21.9 Gastro-esophageal reflux disease without esophagitis; F41.8 Other specified anxiety disorders; I25.10 Atherosclerotic heart disease of native coronary artery without angina pectoris; E11.9 Type 2 diabetes mellitus without complications
CPT/HCPCS: G0463; 87880; 99202

== ENCOUNTER → 2021-06-09 18:47 | Outpatient (CLI) | payer MEDICARE, MEDICAID, SELFPAY | PROVIDERS: PCP Emergency Medicine; Visit Provider Nurse Practitioner | DX: Z20.822 Contact with and (suspected) exposure to COVID-19 (principal) | CPT/HCPCS: C9803; U0003; U0005 ==

== ENCOUNTER 2021-06-09 19:46 | Emergency (ER) | payer MEDICARE, MEDICAID, SELFPAY ==
--- NOTE | 2021-06-09 19:44 | ECG_ITS ---
APPROVED REPORT Exam: Resting ECG HR:96 bpm ECG Measurements Heart Rate 96 AXES WA 152 P 70 QRSd 96 QRS 27 QT 372 T 69 QTc 469 Conclusion Normal sinus rhythm Normal ECG Electronically signed by : Cameron Kohli MD 06/09/2021 21:09:27
[2021-06-09 19:47] VITALS: BP 153/88; PULSE 95; RESP 20; TEMP 36.8; O2SAT 99; BMI 48.6
[2021-06-09 20:29] LABS: Chloride 97 mmol/L (98-107); Sodium 138 mmol/L (136-145)
[2021-06-09 20:30] LABS: Potassium 4.4 mmoL/L (3.5-5.1)
[2021-06-09 20:32] LABS: Alanine Aminotransferase 42 U/L (12-78); Albumin Level 4.5 g/dl (3.5-5.0); Albumin/Globulin Ratio 1.3 (1.1-1.8); Alkaline Phosphatase 167 U/L (38-126); Aspartate Amino Transferase 69 U/L (17-59); Bilirubin,Total 0.5 mg/dl (0.2-1.3); Blood Urea Nitrogen 32 mg/dl (9-20); Creatinine Clearance Estimated 78 mL/min (50-200); Estimated Glomerular Filt Rate 71 ml/min (>60); GFR (African American) 86 ML/MIN (>60); Globulin 3.5 g/dL (1.3-3.2)
[2021-06-09 20:33] LABS: Calcium 9.3 mg/dl (8.4-10.2); Glucose 330 mg/dl (74-100)
[2021-06-09 20:34] LABS: Basophils # 0.1 K/mm3 (0-0.2); Basophils % 0.7 % (0.1-2.0); Eosinophils # 0.4 K/mm3 (0.0-0.4); Eosinophils % 4.8 % (0.1-12.0); Hematocrit 32.9 % (42.0-52.0); Hemoglobin 9.7 g/dL (14.1-18.0); Lymphocytes # 1.6 K/mm3 (0.7-4.5); Lymphocytes % 18.7 % (10-50); Mean Corpuscular HGB Conc 29.4 g/dL (31.8-35.4); Mean Corpuscular Hemoglobin 20.1 pg (27.0-31.2); Mean Corpuscular Volume 68.3 fl (80-94); Mean Platelet Volume 7.7 fl (7.4-10.4); Monocytes # 0.7 K/mm3 (0.1-1.0); Monocytes % 8.2 % (1.7-9.3); Neutrophils # 5.7 K/mm3 (1.8-7.8); Neutrophils % 67.6 % (37.0-80.0); Platelet Count 420 K/mm3 (142-424); Red Blood Count 4.81 M/mm3 (4.60-6.20); Red Cell Distribution Width 16.5 % (11.5-17.5); White Blood Count 8.4 K/mm3 (4.8-10.8)
[2021-06-09 20:38] LABS: C-Reactive Protein 17.8 mg/L (0-4)
[2021-06-09 20:44] LABS: NT Pro Brain Natriuretic Pep. 22.4 pg/mL (0-125)
[2021-06-09 20:47] LABS: Troponin I < 0.01 ng/ml (0.00-0.034)
--- NOTE | 2021-06-09 20:53 | HMH.EDCP ---
ED Disposition Clinical Impression: Atypical chest pain, Hyperglycemia due to type 1 diabetes mellitus Disposition: Home, Self-Care Condition on Discharge: Good Instructions: DI for Atypical Chest Pain Additional Instructions: see pcp for follow up Referrals: Star Mathis MD [Primary Care Provider] - - Critical Care Critical Care Time: No Attestation: On 06/09/21, the high probability of a clinically significant, sudden or life threatening deterioration of the following system(s) required my full and direct attention, intervention and personal management. The time I documented below is in addition to time spent performing reported procedures but includes the following listed in this critical care notation. Medical Decision Making - Medical Records Medical records reviewed: Yes: I reviewed the patient's medical records. - Fahad Inquiry Pt receiving controlled substance: No Vital Signs: 06/09/21 19:47 Temperature 98.2 F Temperature Source Oral Pulse Rate [Right] 95 H Respiratory Rate 20 Blood Pressure [Right Arm] 153/88 H Blood Pressure Mean [Right Arm] 109 02 Sat by Pulse Oximetry 99 Oxygen Delivery Method Room Air - Lab Data Lab results reviewed: Yes: I reviewed the patient's lab results. Lab Results 06/09/21 19:55: WBC 8.4, RBC 4.81, Hgb 9.7 L, Hct 32.9 L, MCV 68.3 L, MCH 20.1 L, MCHC 29.4 L, RDW 16.5, Plt Count 420, MPV 7.7, Neut % (Auto) 67.6, Lymph % (Auto) 18.7, [place] % (Auto) 8.2, Eos % (Auto) 4.8, Baso % (Auto) 0.7, Neut # (Auto) 5.7, Lymph # (Auto) 1.6, [place] # (Auto) 0.7, Eos # (Auto) 0.4, Baso # (Auto) 0.1 06/09/21 19:55: Sodium 138, Potassium 4.4, Chloride 97 L, Carbon Dioxide 29, BUN 32 H, Creatinine 1.10, Estimated Creat Clear 78, Estimated GFR 71, Est GFR ( Amer) 86, Glucose 330 H, Calcium 9.3, Total Bilirubin 0.5, AST 69 H, ALT 42, Alkaline Phosphatase 167 H, Troponin I < 0.01, C-Reactive Protein 17.8 H, NT-Pro-B Natriuret Pep 22.4, Total Protein 8.0, Albumin 4.5, Globulin 3.5 H, Albumin/Globulin Ratio 1.3 Result diagrams: 06/09/21 19:55 06/09/21 19:55 Orders (Tests/Meds): ED MEDICATIONS Discontinued Medications Generic Name Dose Route Start Last Admin Trade Name Jeremy PRN Reason Stop Dose Admin Acetaminophen 1,000 mg 06/09/21 20:11 06/09/21 20:12 Acetaminophen 500mg Tab PO 06/09/21 20:12 1,000 mg ONCE ONE Administration Aspirin 324 mg 06/09/21 20:08 06/09/21 20:12 Aspirin 81mg Chewable Tablet PO 06/09/21 20:09 324 mg ONCE ONE Administration ORDERS Category Date Time Status Brain Natriuretic Peptide Stat Lab 06/09/21 19:55 Results C-Reactive Protein Stat Lab 06/09/21 19:55 Results Complete Blood Count Auto Diff Stat Lab 06/09/21 19:55 Received Comprehensive Metabolic Panel Stat Lab 06/09/21 19:55 Results Erythrocyte Sedimentation Rate Stat Lab 06/09/21 19:55 Received Procalcitonin Stat Lab 06/09/21 19:55 Results Troponin I Q3H Lab 06/09/21 23:15 Ordered Troponin I Q3H Lab 06/10/21 02:15 Ordered Troponin I Stat Lab 06/09/21 19:55 Results UA [Urinalysis and Microscopic] Stat Lab 06/09/21 20:08 Ordered - ECG Data Tracing #1 Normal Sinus Rhythm: Yes Ischemic changes: non-specific ST-T wave changes Medical Decision Narrative: please call pcp for follow up Chest Pain HPI - General Chief Complaint: Chest Pain Stated Complaint: chest pain Time Seen by Provider: 06/09/21 20:00 Mode of Arrival: Wheelchair Source of Information: Patient, Medical Record Limitations: No Limitations Description of Symptoms (Recalled from ER Triage Doc. by RN): Pt has felt bad for a few days with sore throat, nausea, and headache. He is here with his mother who checked in to the ER earlier for similar sxs. While waiting pt had a covid swab at [facility]. He was asking people for tylenol in the lobby and when they didn't have any, he asked to be checked in for chest pain. Pt rates pain 8/10 on [employer] CONTR[employer], states it is dull ache
[2021-06-09 21:10] LABS: Erythrocyte Sedimentation Rate 17 mm/hr (0-15)
[2021-06-09 21:32] VITALS: BP 139/63; PULSE 98; RESP 18; TEMP 37.1; O2SAT 98
[2021-06-09 21:47] LABS: Anion Gap 16.4 mEq/L (5-15); Carbon Dioxide 29 mmol/L (22.0-30.0)
[2021-06-09 21:50] LABS: Procalcitonin 0.191 ng/mL (0.0-2.0)
== END 2021-06-09 21:35 | disposition home or self-care (01) ==
PROVIDERS: Emergency Provider Emergency Medicine; PCP Emergency Medicine
DX: R07.89 Other chest pain (principal); E10.65 Type 1 diabetes mellitus with hyperglycemia; I48.91 Unspecified atrial fibrillation; I50.9 Heart failure, unspecified; I25.10 Atherosclerotic heart disease of native coronary artery without angina pectoris; E78.5 Hyperlipidemia, unspecified; I10 Essential (primary) hypertension; Z79.899 Other long term (current) drug therapy
CPT/HCPCS: 80053; 83880; 84145; 84484; 85025; 85651; 86140; 93005; 99282; C9803; U0003; U0005

== ENCOUNTER 2021-06-23 10:14 | Outpatient (CLI) | payer MEDICARE, MEDICAID, SELFPAY ==
[2021-06-23 10:40] VITALS: BP 156/82; PULSE 90; RESP 18; TEMP 36.7; O2SAT 97
[2021-06-23 11:10] VITALS: BP 170/77; PULSE 91; RESP 20
== END 2021-06-23 11:10 | disposition home or self-care (01) ==
LOC: INF 10:17
PROVIDERS: PCP Family Medicine; Visit Provider Family Medicine
DX: D50.9 Iron deficiency anemia, unspecified (principal)
CPT/HCPCS: 96374; Q0138

== ENCOUNTER 2021-06-30 09:39 | Outpatient (CLI) | payer MEDICARE, MEDICAID, SELFPAY ==
[2021-06-30 09:55] VITALS: BP 143/70; PULSE 108; RESP 19; TEMP 36.8; O2SAT 95
[2021-06-30 10:20] VITALS: BP 143/83; PULSE 107; RESP 20
== END 2021-06-30 10:20 | disposition home or self-care (01) ==
LOC: INF 09:40
PROVIDERS: PCP Family Medicine; Visit Provider Family Medicine
DX: D50.9 Iron deficiency anemia, unspecified (principal)
CPT/HCPCS: 96374; Q0138

== ENCOUNTER 2021-07-03 09:10 | Emergency (ER) | payer MEDICARE, MEDICAID, SELFPAY ==
[2021-07-03] VITALS (7 sets, daily range): BP systolic 103–146; BP diastolic 46–101; PULSE 102–117; RESP 22–24; TEMP 38.3–39.6; O2SAT 93–99; BMI 47.1
--- NOTE | 2021-07-03 09:27 | XR_ITS ---
PROCEDURE INFORMATION: Exam: XR Chest Exam date and time: 07/03/2021 9:27 AM Age: 51 years old Clinical indication: Shortness of breath; Additional info: Cough, fever, SOB TECHNIQUE: Imaging protocol: XR of the chest. Views: 1 view. COMPARISON: CR XR CHEST AP 05/25/2021 11:05 PM FINDINGS: Lungs: Hypoinflation with interstitial prominence and mild airspace disease. Pleural spaces: No significant pleural effusion. Heart/Mediastinum: Cardiac silhouette accentuated by portable positioning and hypoinflation. Bones/joints: Unremarkable. Soft tissues: Panniculus with soft tissue partially obscuring the lung base. IMPRESSION: Hypoinflation with interstitial prominence and mild airspace disease.
[2021-07-03 09:34] LABS: Coronavirus 19, PCR Not Detected (NotDetected); Influenza A, PCR Not Detected (NotDetected); Influenza B, PCR Not Detected (NotDetected)
[2021-07-03 09:41] LABS: Microscopic, Urine URINE MICROSCOPIC (MICROSCOPIC)
[2021-07-03 09:47] LABS: Basophils # 0.1 K/mm3 (0-0.2); Basophils % 0.5 % (0.1-2.0); Eosinophils # 0.2 K/mm3 (0.0-0.4); Hematocrit 31.3 % (42.0-52.0); Hemoglobin 9.1 g/dL (14.1-18.0); Lymphocytes # 0.8 K/mm3 (0.7-4.5); Lymphocytes % 4.5 % (10-50); Mean Corpuscular HGB Conc 29.1 g/dL (31.8-35.4); Mean Corpuscular Hemoglobin 20.5 pg (27.0-31.2); Mean Corpuscular Volume 70.5 fl (80-94); Mean Platelet Volume 7.4 fl (7.4-10.4); Monocytes # 0.8 K/mm3 (0.1-1.0); Monocytes % 4.6 % (1.7-9.3); Neutrophils # 15.6 K/mm3 (1.8-7.8); Neutrophils % 89.5 % (37.0-80.0); Platelet Count 324 K/mm3 (142-424); Red Blood Count 4.44 M/mm3 (4.60-6.20); Red Cell Distribution Width 24.7 % (11.5-17.5); White Blood Count 17.5 K/mm3 (4.8-10.8)
[2021-07-03 09:48] LABS: Appearance,Urine CLEAR (Clear); Bilirubin,Urine Negative (Negative); Blood, Urine 1+ (Negative); Color,Urine YELLOW (Yellow); Glucose,Urine (UA) 3+ (Negative); Ketones,Urine Negative (Negative); Leukocyte Esterase,Urine Negative (Negative); Nitrate,Urine Negative (Negative); PH,Urine 6.5 (5.0-8.5); Protein,Urine 2+ (Negative); Specific Gravity, Urine 1.015 (1.005-1.030); Urobilinogen,Urine 0.2 EU/dl (0.2)
[2021-07-03 09:50] LABS: Alanine Aminotransferase 39 U/L (12-78); Albumin Level 3.9 g/dl (3.5-5.0); Albumin/Globulin Ratio 1.2 (1.1-1.8); Alkaline Phosphatase 177 U/L (38-126); Anion Gap 11.1 mEq/L (5-15); Aspartate Amino Transferase 44 U/L (17-59); Bilirubin,Total 0.4 mg/dl (0.2-1.3); Blood Urea Nitrogen 19 mg/dl (9-20); Calcium 8.6 mg/dl (8.4-10.2); Carbon Dioxide 32 mmol/L (22.0-30.0); Chloride 92 mmol/L (98-107); Creatinine Clearance Estimated 66 mL/min (50-200); Estimated Glomerular Filt Rate 58 ml/min (>60); GFR (African American) 71 ML/MIN (>60); Globulin 3.2 g/dL (1.3-3.2); Glucose 303 mg/dl (74-100); Potassium 4.1 mmoL/L (3.5-5.1); Sodium 131 mmol/L (136-145); Total Protein,Serum 7.1 g/dl (6.3-8.2)
[2021-07-03 09:54] LABS: MANUAL DIFFERENTIAL MANUAL DIFFERENTIAL (MANUAL DIFF)
[2021-07-03 09:55] LABS: Lactic Acid 1.4 mmol/L (0.7-2.1)
[2021-07-03 10:03] LABS: NT Pro Brain Natriuretic Pep. 108 pg/mL (0-125)
--- NOTE | 2021-07-03 10:03 | HMH.EDGENADL ---
ED Disposition Clinical Impression: Pneumonia Qualifiers: Pneumonia type: due to unspecified organism Laterality: bilateral Lung location: unspecified part of lung Qualified Code(s): J18.9 - Pneumonia, unspecified organism Acute and chronic respiratory failure Qualifiers: Respiratory failure complication: hypoxia Qualified Code(s): J96.21 - Acute and chronic respiratory failure with hypoxia Uncontrolled diabetes mellitus Qualifiers: Diabetes mellitus type: type 2 Glycemic state: with hyperglycemia Qualified Code(s): E11.65 - Type 2 diabetes mellitus with hyperglycemia Disposition: Home, Self-Care Condition on Discharge: Fair Instructions: DI for Atypical Pneumonia Additional Instructions: You have been evaluated for fever, cough, shortness of breath, diagnosed with pneumonia. Please take Levaquin as prescribed. Follow-up with Dr. Mathis on Monday. You have an appointment at his office. Use your home oxygen. Monitor your blood glucose and take insulin. Avoid sugary drinks and carbohydrates. Return to the emergency department once for any new or worsening symptoms, fevers, chills, difficulty breathing, other concerns. Prescriptions: levoFLOXacin [Levofloxacin 750MG Tablet*] 750 mg PO DAILY #7 tab Transmission Status: Received by [facility] Referrals: Star Mathis MD [Primary Care Provider] - Time of Disposition: 12:51 - Critical Care Critical Care Time: No Attestation: On 07/03/21, the high probability of a clinically significant, sudden or life threatening deterioration of the following system(s) required my full and direct attention, intervention and personal management. The time I documented below is in addition to time spent performing reported procedures but includes the following listed in this critical care notation. Total Critical Care Time: 0 Medical Decision Making - Medical Records Medical records reviewed: Yes: I reviewed the patient's medical records. - Fahad Inquiry Pt receiving controlled substance: No Vital Signs: 07/03/21 09:11 07/03/21 09:50 07/03/21 10:00 Temperature 101.0 F H Temperature Source Oral Pulse Rate 106 H 102 H Pulse Rate [Left Radial] 111 H Respiratory Rate 22 24 24 Blood Pressure 131/71 134/67 Blood Pressure [Right Arm] 146/101 H Blood Pressure Mean 102 89 Blood Pressure Mean [Right Arm] 116 Blood Pressure Source [Right Arm] Automatic Cuff Blood Pressure Position [Right Arm] Sitting 02 Sat by Pulse Oximetry 99 96 96 Oxygen Delivery Method Nasal Cannula Nasal Cannula Nasal Cannula Oxygen Flow Rate (LPM) 2 2 2 07/03/21 10:14 07/03/21 11:01 07/03/21 11:08 Temperature 103.3 F H Temperature Source Oral Pulse Rate 106 H 117 H 102 H Pulse Rate [Left Radial] Respiratory Rate 24 24 Blood Pressure 111/46 L 103/53 L Blood Pressure [Right Arm] Blood Pressure Mean 88 82 Blood Pressure Mean [Right Arm] Blood Pressure Source [Right Arm] Blood Pressure Position [Right Arm] 02 Sat by Pulse Oximetry 96 93 L 95 Oxygen Delivery Method Nasal Cannula Nasal Cannula Nasal Cannula Oxygen Flow Rate (LPM) 2 2 3 07/03/21 13:22 Temperature 101.2 F H Temperature Source Pulse Rate 102 H Pulse Rate [Left Radial] Respiratory Rate 24 Blood Pressure 130/55 L Blood Pressure [Right Arm] Blood Pressure Mean Blood Pressure Mean [Right Arm] Blood Pressure Source [Right Arm] Blood Pressure Position [Right Arm] 02 Sat by Pulse Oximetry Oxygen Delivery Method Room Air Oxygen Flow Rate (LPM) - Lab Data Lab Results 07/03/21 09:25: Urine Color Yellow, Urine Appearance Clear, Urine pH 6.5, Ur Specific [place] 1.015, Urine Protein 2+, Urine Glucose (UA) 3+, Urine Ketones Negative, Urine Blood 1+, Urine Nitrate Negative, Urine Bilirubin Negative, Urine Urobilinogen 0.2, Ur Leukocyte Esterase Negative, Urine RBC 3-5, Urine WBC None, Ur Squamous Epith Cells None, Urine Bacteria None 07/03/21 09:25: WBC 17.5 H, RBC 4.44 L, Hgb 9.1 L, Hct
[2021-07-03 10:07] LABS: Procalcitonin 0.402 ng/mL (0.0-2.0)
[2021-07-03 10:13] LABS: Troponin I < 0.01 ng/ml (0.00-0.034)
[2021-07-03 10:14] LABS: Acetone, Serum (Rapid) Detected (None Detect)
[2021-07-03 10:19] LABS: VBG Base Excess 2.9 mmol/L (-2.4-2.3); VBG HCO3 29.3 mmol/L (23-30); VBG Oxygen Saturation 93.9 % (50-70); VBG PCO2 60.7 mmol/L (35-51); VBG Total CO2 31.1 mmol/L (23-27)
[2021-07-03 10:33] LABS: Eosinophils % 1 % (0-3); Lymphocytes % 5 % (10-50); Monocytes % 4 % (2-9); Neutrophils % 84 % (42-76); Total Cells Counted 100
[2021-07-03 10:34] LABS: Anisocytosis 2+; Hypochromasia 2+; Microcytosis 2+; Platelet Estimate Normal
[2021-07-03 12:51] LABS: POC Glucose,Bedside 219 (70-110)
--- NOTE | 2021-07-06 21:07 | PC.NURSE ---
Lab called and gave blood culture result to dennis colin. This RN spoke with Dr tobias and Dr Villagomez. Dr Villagomez contacted pt and pt is to follow up with Dr Villagomez in office tomorrow
== END 2021-07-03 13:26 | disposition home or self-care (01) ==
PROVIDERS: Emergency Provider Emergency Medicine; PCP Emergency Medicine
DX: J96.01 Acute respiratory failure with hypoxia (principal); J15.211 Pneumonia due to Methicillin susceptible Staphylococcus aureus; E11.65 Type 2 diabetes mellitus with hyperglycemia; Z87.891 Personal history of nicotine dependence; Z20.822 Contact with and (suspected) exposure to COVID-19; I48.0 Paroxysmal atrial fibrillation; F41.8 Other specified anxiety disorders; K21.9 Gastro-esophageal reflux disease without esophagitis; I10 Essential (primary) hypertension; E78.5 Hyperlipidemia, unspecified; Z79.899 Other long term (current) drug therapy
CPT/HCPCS: 71045; 80053; 81001; 82009; 82803; 82962; 83605; 83880; 84145; 84484; 85007; 85025; 87040; 87077; 87186; 96365; 96367; 96372; 96375; 99284; C9803; J0456; J0696; U0003; U0005

== ENCOUNTER 2021-07-03 16:32 | Emergency (ER) | payer MEDICARE, MEDICAID, SELFPAY ==
[2021-07-03 16:33] VITALS: BP 117/69; PULSE 107; RESP 18; TEMP 37.8; O2SAT 96; BMI 47.1
[2021-07-03 16:34] VITALS: BMI 47.1
[2021-07-03 16:52] LABS: Basophils # 0.1 K/mm3 (0-0.2); Basophils % 0.3 % (0.1-2.0); Eosinophils % 0.3 % (0.1-12.0); Hematocrit 30.8 % (42.0-52.0); Hemoglobin 9.1 g/dL (14.1-18.0); Lymphocytes # 0.8 K/mm3 (0.7-4.5); Lymphocytes % 5.1 % (10-50); Mean Corpuscular HGB Conc 29.5 g/dL (31.8-35.4); Mean Corpuscular Hemoglobin 20.8 pg (27.0-31.2); Mean Corpuscular Volume 70.7 fl (80-94); Mean Platelet Volume 7.7 fl (7.4-10.4); Monocytes # 0.4 K/mm3 (0.1-1.0); Monocytes % 2.7 % (1.7-9.3); Neutrophils # 14.7 K/mm3 (1.8-7.8); Neutrophils % 91.6 % (37.0-80.0); Platelet Count 348 K/mm3 (142-424); Red Blood Count 4.36 M/mm3 (4.60-6.20); Red Cell Distribution Width 24.8 % (11.5-17.5)
--- NOTE | 2021-07-03 16:52 | HMH.EDGENADL ---
ED Disposition Clinical Impression: Pneumonia Qualifiers: Pneumonia type: due to unspecified organism Laterality: unspecified laterality Lung location: unspecified part of lung Qualified Code(s): J18.9 - Pneumonia, unspecified organism Chronic respiratory failure Qualifiers: Respiratory failure complication: hypoxia and hypercapnia Qualified Code(s): J96.11 - Chronic respiratory failure with hypoxia Disposition: Home, Self-Care Condition on Discharge: Fair Additional Instructions: You have been evaluated for elevated blood glucose and pneumonia. Please continue taking Levaquin as prescribed. Use your home oxygen 4 L. Follow-up with your primary care doctor on Monday, Dr. Mathis has an appointment for you. Return for any new or worsening symptoms. Referrals: Star Mathis MD [Primary Care Provider] - Time of Disposition: 19:05 - Critical Care Critical Care Time: No Attestation: On 07/03/21, the high probability of a clinically significant, sudden or life threatening deterioration of the following system(s) required my full and direct attention, intervention and personal management. The time I documented below is in addition to time spent performing reported procedures but includes the following listed in this critical care notation. Medical Decision Making - Medical Records Medical records reviewed: Yes: I reviewed the patient's medical records. - Fahad Inquiry Pt receiving controlled substance: No Vital Signs: 07/03/21 16:33 07/03/21 19:21 Temperature 100.1 F H Temperature Source Oral Pulse Rate 75 Pulse Rate [Left Radial] 107 H Respiratory Rate 18 Blood Pressure 145/68 H Blood Pressure [Right Arm] 117/69 Blood Pressure Mean [Right Arm] 85 Blood Pressure Source [Right Arm] Automatic Cuff Blood Pressure Position [Right Arm] Sitting 02 Sat by Pulse Oximetry 96 96 Oxygen Delivery Method Room Air Nasal Cannula Oxygen Flow Rate (LPM) 2 - Lab Data Lab Results 07/03/21 16:35: WBC 16.0 H, RBC 4.36 L, Hgb 9.1 L, Hct 30.8 L, MCV 70.7 L, MCH 20.8 L, MCHC 29.5 L, RDW 24.8 H, Plt Count 348, MPV 7.7, Neut % (Auto) 91.6 H, Lymph % (Auto) 5.1 L, [place] % (Auto) 2.7, Eos % (Auto) 0.3, Baso % (Auto) 0.3, Neut # (Auto) 14.7 H, Lymph # (Auto) 0.8, [place] # (Auto) 0.4, Eos # (Auto) 0.0, Baso # (Auto) 0.1 07/03/21 16:35: Sodium 131 L, Potassium 4.4, Chloride 92 L, Carbon Dioxide 26, Anion Gap 17.4 H, BUN 22 H, Creatinine 1.50 H, Estimated Creat Clear 57, Estimated GFR 50 L, Est GFR ( Amer) 60, Glucose 420 H* D, Calcium 8.1 L, Total Bilirubin 0.5, AST 39, ALT 41, Alkaline Phosphatase 175 H, Total Protein 7.1, Albumin 3.6, Globulin 3.5 H, Albumin/Globulin Ratio 1.0 L 07/03/21 16:35: Acetone Level None detected 07/03/21 16:51: VBG pH 7.33, VBG pCO2 42.5, VBG pO2 80.9 H, VBG HCO3 22.1 L, VBG Total CO2 23.4, VBG O2 Saturation 95.9 H, VBG Base Excess -3.8 L Result diagrams: 07/03/21 16:35 07/03/21 16:35 Orders (Tests/Meds): ED MEDICATIONS Generic Name Dose Route Start Last Admin Trade Name Freq PRN Reason Stop Dose Admin Sodium Chloride 1,000 mls @ 999 mls/hr 07/03/21 17:15 07/03/21 19:01 Sod Chlor 0.9% 1000ml Bag IV 07/03/21 18:15 999 mls/hr .Q1H1M CARLIN Administration Discontinued Medications Generic Name Dose Route Start Last Admin Trade Name Freq PRN Reason Stop Dose Admin Gabapentin 800 mg 07/03/21 19:02 07/03/21 19:04 Gabapentin 100mg Capsule PO 07/03/21 19:03 800 mg ONCE ONE Administration Insulin Human Lispro 10 unit 07/03/21 17:18 07/03/21 19:03 Humalog 100 Units/Ml 3ml Vial (Ssi) SQ 07/03/21 17:19 10 unit ONCE ONE Administration Medical Decision Narrative: In summary this is a 51-year-old male with history of diabetes and recent pneumonia presenting to the emergency department with tremulousness. Patient clinically stable on arrival. Vital signs within normal limits. Will obtain CBC, CMP, VBG, beta hydroxybutyric acid. Results show persi
[2021-07-03 16:53] LABS: Chloride 92 mmol/L (98-107); Potassium 4.4 mmoL/L (3.5-5.1); Sodium 131 mmol/L (136-145)
[2021-07-03 16:56] LABS: Alanine Aminotransferase 41 U/L (12-78); Albumin Level 3.6 g/dl (3.5-5.0); Alkaline Phosphatase 175 U/L (38-126); Anion Gap 17.4 mEq/L (5-15); Aspartate Amino Transferase 39 U/L (17-59); Bilirubin,Total 0.5 mg/dl (0.2-1.3); Blood Urea Nitrogen 22 mg/dl (9-20); Carbon Dioxide 26 mmol/L (22.0-30.0); Creatinine Clearance Estimated 57 mL/min (50-200); Estimated Glomerular Filt Rate 50 ml/min (>60); GFR (African American) 60 ML/MIN (>60); Globulin 3.5 g/dL (1.3-3.2); Total Protein,Serum 7.1 g/dl (6.3-8.2)
[2021-07-03 16:57] LABS: Calcium 8.1 mg/dl (8.4-10.2)
[2021-07-03 17:02] LABS: Acetone, Serum (Rapid) None Detected (None Detect); Glucose 420 mg/dl (74-100)
[2021-07-03 17:03] LABS: VBG Base Excess -3.8 mmol/L (-2.4-2.3); VBG HCO3 22.1 mmol/L (23-30); VBG Oxygen Saturation 95.9 % (50-70); VBG PCO2 42.5 mmol/L (35-51); VBG PH 7.33 mmol/L (7.31-7.41); VBG PO2 80.9 mmol/L (28-40); VBG Total CO2 23.4 mmol/L (23-27)
[2021-07-03 19:21] VITALS: BP 145/68; PULSE 75; O2SAT 96
[2021-07-03 20:39] VITALS: BP 145/68; PULSE 75; RESP 16; TEMP 37.1; O2SAT 94
[2021-07-03 20:44] VITALS: BP 134/81; PULSE 101; RESP 20; TEMP 37.2; O2SAT 96
== END 2021-07-03 20:53 | disposition home or self-care (01) ==
PROVIDERS: Emergency Provider Emergency Medicine; PCP Emergency Medicine
DX: J18.9 Pneumonia, unspecified organism (principal); J96.11 Chronic respiratory failure with hypoxia; E11.65 Type 2 diabetes mellitus with hyperglycemia; I48.0 Paroxysmal atrial fibrillation; K21.9 Gastro-esophageal reflux disease without esophagitis; I10 Essential (primary) hypertension; E78.5 Hyperlipidemia, unspecified; Z79.899 Other long term (current) drug therapy
CPT/HCPCS: 80053; 82009; 82803; 85025; 96365; 96372; 99282

== ENCOUNTER 2021-07-06 22:56 | Observation (INO) | payer MEDICARE, MEDICAID, SELFPAY ==
[2021-07-06 22:59] VITALS: BP 145/79; PULSE 87; RESP 18; TEMP 36.7; O2SAT 98; BMI 45.6
--- NOTE | 2021-07-06 23:04 | XR_ITS ---
PROCEDURE INFORMATION: Exam: XR Chest Exam date and time: 07/06/2021 11:04 PM Age: 51 years old Clinical indication: Cough; Sternal or substernal pain; Additional info: Cough, pneumonia TECHNIQUE: Imaging protocol: XR of the chest. Views: 1 view. Total images: 1 COMPARISON: CR XR CHEST PORTABLE 07/03/2021 9:34 AM FINDINGS: Lungs: Nonspecific mild bibasilar opacities, favoring atelectasis or pneumonia. Pleural spaces: Unremarkable. No pleural effusion. No pneumothorax. Heart/Mediastinum: Unremarkable. No cardiomegaly. Bones/joints: Unremarkable. IMPRESSION: Nonspecific mild bibasilar opacities, favoring atelectasis or pneumonia. Appearance similar to prior.
--- NOTE | 2021-07-06 23:06 | ECG_ITS ---
APPROVED REPORT Exam: Resting ECG HR:83 bpm ECG Measurements Heart Rate 83 AXES IL 150 P 44 QRSd 102 QRS 17 QT 396 T 58 QTc 465 Conclusion Normal sinus rhythm Normal ECG Electronically signed by : Cameron Kohli MD 07/08/2021 13:44:47
--- NOTE | 2021-07-06 23:07 | HMH.EDGENADL ---
ED Disposition Clinical Impression: Bacteremia Pneumonia Qualifiers: Pneumonia type: due to unspecified organism Laterality: bilateral Lung location: unspecified part of lung Qualified Code(s): J18.9 - Pneumonia, unspecified organism Disposition: Admitted As Inpatient Condition on Discharge: Fair Referrals: Bert Villagomez MD [Primary Care Provider] - Time of Disposition: 23:54 - Critical Care Critical Care Time: No Attestation: On , the high probability of a clinically significant, sudden or life threatening deterioration of the following system(s) required my full and direct attention, intervention and personal management. The time I documented below is in addition to time spent performing reported procedures but includes the following listed in this critical care notation. Medical Decision Making - Medical Records Medical records reviewed: Yes: I reviewed the patient's medical records. - Fahad Inquiry Pt receiving controlled substance: No Vital Signs: 07/06/21 22:59 Temperature 98.1 F Temperature Source Oral Pulse Rate [Apical] 87 Respiratory Rate 18 Blood Pressure [Right Arm] 145/79 H Blood Pressure Mean [Right Arm] 101 Blood Pressure Source [Right Arm] Automatic Cuff Blood Pressure Position [Right Arm] Sitting 02 Sat by Pulse Oximetry 98 Oxygen Delivery Method Room Air - Lab Data Lab Results 07/06/21 23:11: WBC 7.9, RBC 5.25, Hgb 11.1 L, Hct 37.1 L, MCV 70.6 L, MCH 21.1 L, MCHC 29.9 L, RDW 25.2 H*, Plt Count 445 H D, MPV 7.5, Neut % (Auto) 68.5, Lymph % (Auto) 18.8, [place] % (Auto) 7.1, Eos % (Auto) 4.1, Baso % (Auto) 1.6, Neut # (Auto) 5.4, Lymph # (Auto) 1.5, [place] # (Auto) 0.6, Eos # (Auto) 0.3, Baso # (Auto) 0.1 07/06/21 23:11: Sodium 136, Potassium 3.9, Chloride 93 L, Carbon Dioxide 36 H, Anion Gap 10.9, BUN 19, Creatinine 1.10, Estimated Creat Clear 78, Estimated GFR 71, Est GFR ( Amer) 86, Glucose 306 H, Calcium 9.0, Total Bilirubin 0.3, AST 51, ALT 42, Alkaline Phosphatase 157 H, Troponin I < 0.01, Total Protein 7.4, Albumin 3.9, Globulin 3.5 H, Albumin/Globulin Ratio 1.1, Procalcitonin 0.135 07/06/21 23:11: NT-Pro-B Natriuret Pep 40.0 Result diagrams: 07/06/21 23:11 07/06/21 23:11 Orders (Tests/Meds): ED MEDICATIONS Generic Name Dose Route Start Last Admin Trade Name Freq PRN Reason Stop Dose Admin Ceftriaxone Sodium 2 gm/ 100 mls @ 200 mls/hr 07/06/21 23:45 Sodium Chloride IV 07/20/21 23:44 Q24H CARLIN Miscellaneous 1 each 07/06/21 23:45 Vancomycin Consult Request * 08/05/21 23:44 CONSULT PHARMACY [facility] Sodium Chloride 8 ml 07/06/21 23:24 Sodium Chloride 0.9% 10ml Vial IV 08/05/21 23:23 NEEDED PRN dilute pepcid Discontinued Medications Generic Name Dose Route Start Last Admin Trade Name Freq PRN Reason Stop Dose Admin Aspirin 325 mg 07/06/21 23:22 07/06/21 23:30 Aspirin 325mg Tablet PO 07/06/21 23:23 325 mg ONCE ONE Administration Belladonna Alkaloids 60 ml 07/06/21 23:24 07/06/21 23:30 Gi Cocktail 60ml Udc PO 07/06/21 23:25 60 ml ONCE ONE Administration Famotidine 20 mg 07/06/21 23:24 07/06/21 23:29 Famotidine 20mg/2ml Vial IV 07/06/21 23:25 20 mg ONCE ONE Administration ORDERS Category Date Time Status Lactic Acid Stat Lab 07/06/21 23:04 Ordered Troponin I Q3H Lab 07/07/21 02:15 Ordered Troponin I Q3H Lab 07/07/21 05:15 Ordered EKG Request [ECG Request by /[place]] Stat Y 07/06/21 23:07 Ordered - ECG Data Tracing #1 Sinus rhythm with ventricular rate of 83 beats minute. QRS 102, QTc 465. No ST segment changes. No arrhythmia. Medical Decision Narrative: In summary this is a 51-year-old male with recent diagnosis of pneumonia presenting to the emergency department with chest pain. Patient clinically stable on arrival. Vital signs within normal limits. Concern for ACS, vasospasm, epigastric pain. Will obtain CBC, CMP, chest x-ray, EKG, troponin profile, BNP.
[2021-07-06 23:23] LABS: Basophils # 0.1 K/mm3 (0-0.2); Basophils % 1.6 % (0.1-2.0); Eosinophils # 0.3 K/mm3 (0.0-0.4); Eosinophils % 4.1 % (0.1-12.0); Hematocrit 37.1 % (42.0-52.0); Hemoglobin 11.1 g/dL (14.1-18.0); Lymphocytes # 1.5 K/mm3 (0.7-4.5); Lymphocytes % 18.8 % (10-50); Mean Corpuscular HGB Conc 29.9 g/dL (31.8-35.4); Mean Corpuscular Hemoglobin 21.1 pg (27.0-31.2); Mean Corpuscular Volume 70.6 fl (80-94); Mean Platelet Volume 7.5 fl (7.4-10.4); Monocytes # 0.6 K/mm3 (0.1-1.0); Monocytes % 7.1 % (1.7-9.3); Neutrophils # 5.4 K/mm3 (1.8-7.8); Neutrophils % 68.5 % (37.0-80.0); Platelet Count 445 K/mm3 (142-424); Red Blood Count 5.25 M/mm3 (4.60-6.20); White Blood Count 7.9 K/mm3 (4.8-10.8)
[2021-07-06 23:27] LABS: Red Cell Distribution Width 25.2 % (11.5-17.5)
[2021-07-06 23:32] LABS: Alanine Aminotransferase 42 U/L (12-78); Albumin Level 3.9 g/dl (3.5-5.0); Albumin/Globulin Ratio 1.1 (1.1-1.8); Alkaline Phosphatase 157 U/L (38-126); Anion Gap 10.9 mEq/L (5-15); Aspartate Amino Transferase 51 U/L (17-59); Bilirubin,Total 0.3 mg/dl (0.2-1.3); Blood Urea Nitrogen 19 mg/dl (9-20); Carbon Dioxide 36 mmol/L (22.0-30.0); Chloride 93 mmol/L (98-107); Creatinine Clearance Estimated 78 mL/min (50-200); Estimated Glomerular Filt Rate 71 ml/min (>60); GFR (African American) 86 ML/MIN (>60); Globulin 3.5 g/dL (1.3-3.2); Glucose 306 mg/dl (74-100); Potassium 3.9 mmoL/L (3.5-5.1); Sodium 136 mmol/L (136-145); Total Protein,Serum 7.4 g/dl (6.3-8.2)
[2021-07-06 23:47] LABS: Troponin I < 0.01 ng/ml (0.00-0.034)
[2021-07-06 23:49] LABS: Procalcitonin 0.135 ng/mL (0.0-2.0)
[2021-07-07 00:10] VITALS: BMI 48.1
--- NOTE | 2021-07-07 00:14 | PC.NURSE ---
Night watch consulted for vanc dosing. spoke to pharmacy regarding dosing. Unable to chart off aug.
--- NOTE | 2021-07-07 00:16 | PC.NURSE ---
Attempted to call report at 1215 to [facility].
[2021-07-07 00:34] LABS: Coronavirus 19, PCR Not Detected (NotDetected); Influenza A, PCR Not Detected (NotDetected); Influenza B, PCR Not Detected (NotDetected)
[2021-07-07 00:51] LABS: Lactic Acid 1.1 mmol/L (0.7-2.1)
[2021-07-07 01:21] VITALS: BP 145/79; PULSE 87; RESP 16; TEMP 36.8; O2SAT 97
--- NOTE | 2021-07-07 01:33 | PC.NURSE ---
PT ARRIVED TO FLOOR VIA W/C FROM ED W/STAFF @ [phone]
[2021-07-07 01:50] VITALS: BP 159/96; PULSE 85; RESP 22; TEMP 36.4; O2SAT 99
[2021-07-07 01:56] VITALS: PULSE 80
[2021-07-07 02:30] LABS: Troponin I < 0.01 ng/ml (0.00-0.034)
[2021-07-07 04:00] VITALS: BP 146/86; PULSE 87; PULSE 90; RESP 16; TEMP 36.7; O2SAT 98
[2021-07-07 07:00] LABS: Basophils # 0.1 K/mm3 (0-0.2); Basophils % 0.8 % (0.1-2.0); Eosinophils # 0.3 K/mm3 (0.0-0.4); Eosinophils % 3.5 % (0.1-12.0); Hematocrit 36.7 % (42.0-52.0); Lymphocytes # 1.6 K/mm3 (0.7-4.5); Lymphocytes % 19.2 % (10-50); Mean Corpuscular Hemoglobin 21.3 pg (27.0-31.2); Mean Corpuscular Volume 71.1 fl (80-94); Mean Platelet Volume 7.5 fl (7.4-10.4); Monocytes # 0.6 K/mm3 (0.1-1.0); Monocytes % 7.6 % (1.7-9.3); Neutrophils # 5.7 K/mm3 (1.8-7.8); Neutrophils % 68.9 % (37.0-80.0); Platelet Count 425 K/mm3 (142-424); Red Blood Count 5.17 M/mm3 (4.60-6.20); White Blood Count 8.3 K/mm3 (4.8-10.8)
--- NOTE | 2021-07-07 07:01 | HMH.HP ---
*Admission Date: 07/06/21 *Chief complaint: bacteremia and chest pain *History of present illness: In summary this is a 51-year-old male with recent diagnosis of pneumonia presenting to the emergency department with chest pain. Patient clinically stable on arrival. Vital signs within normal limits. Concern for ACS, vasospasm, epigastric pain. Will obtain CBC, CMP, chest x-ray, EKG, troponin profile, BNP. Patient given 325 aspirin. On further questioning, he states that he ate spicy food at breakfast. His chest pain started after that. We will give 20 mg IV Pepcid and GI cocktail. Earlier today, patient had been called at home and informed of a positive blood culture result. Blood culture grew strep to coccus. Patient was going to follow-up in clinic tomorrow for recheck. However, he came to the emergency department tonight. Case discussed with Dr. Villagomez. We will give 2 g IV Rocephin and vancomycin. Initial laboratory results reassuring. No leukocytosis. Glucose 300. No anion gap. EKG shows sinus rhythm without evidence of ischemia. Initial troponin is undetectable. Will admit for observation, bacteremia and recent diagnosis of pneumonia. above per ER physician Patient was seen in the emergency room on 07-03-21. He was diagnosed with pneumonia. Chest x-ray showed mild airspace disease. He was given IV azithromycin and Rocephin and discharged on p.o. Levaquin instructions to follow-up with Dr. Mathis. He failed to follow-up. White count on that day was 16,000. Cultures were taken, subsequently came back positive. It appears that he is growing MRSA. He is on IV vancomycin pending further evaluation. Patient is complaining mostly of low back pain this morning. Radicular features into the left lower leg. He is able to rise from seated position. He is status post epidural injections and has refractory pain. Is having no active chest pain at time of his exam this morning. [facility] History Medical History: Reports:: Anxiety, Atrial Fibrillation, Congestive Heart Failure, Congenital Heart Disease, Coronary Artery Disease, Depression, Diabetes Mellitus Type 2, Gastroesophageal Reflux Disease(GERD), Hyperlipidemia, Hypertension, Peripheral Vascular Disease, Renal Disease Denies:: Cancer, Diabetes Mellitus Type 1, Internal Pacemaker, MRSA, Seizures *Have you ever received a pneumonia vaccine?: No *Have you received a flu vaccine this season?: No Other Surgeries: Yes: No Previous Surgery, Angiogram, Cardiac Catheterization, Colonoscopy. No: Pacemaker Amputation: No Fractures: Yes - *Social History Smoking Status: Light tobacco smoker Tobacco Type: smokeless tobacco # Packs/Day (cigarettes): 0 Alcohol Intake: former Alcohol Intake Frequency:: 3 or more drinks per day Substance Use Type: denies use *Occupational Status:: retired Housing: house Household Members: spouse *Travel in the last 8 weeks: Inside the [place] - Psychiatric History Pschychiatric History:: Reports:: Anxiety, Depression Family Hx:: Cancer Review of Systems - Constitutional Reports lack of energy - Eyes Denies change in vision - ENT Reports poor balance - *Cardiovascular Reports chest pain, Reports shortness of breath with activity - *Respiratory Reports chest congestion, Denies coughing up blood - *Gastrointestinal Denies abdominal pain - *Genitourinary Denies difficulty urinating - *Musculoskeletal Reports abnormal walking, Reports limited joint movement, Reports muscle weakness, Reports stiffness - Integumentary/Breasts Denies yellowing of the skin - *Neurologic Reports abnormal walking, Denies confusion, Denies dizziness, Denies headache(s) - Psychiatric Denies behavioral changes - Endocrine Denies increased thirst, Denies increased hunger - Hematologic/Lymphatic Denies easy bleeding - Allergic/Immunologic Denies hives Meds Home Medications Medication Instructions Recorded Confirmed Type asp
[2021-07-07 07:14] LABS: POC Glucose,Bedside 179 (70-110)
[2021-07-07 07:19] LABS: Red Cell Distribution Width 25.3 % (11.5-17.5)
[2021-07-07 07:26] LABS: Anion Gap 9.6 mEq/L (5-15); Blood Urea Nitrogen 17 mg/dl (9-20); Carbon Dioxide 36 mmol/L (22.0-30.0); Chloride 94 mmol/L (98-107); Creatinine Clearance Estimated 78 mL/min (50-200); Estimated Glomerular Filt Rate 71 ml/min (>60); GFR (African American) 86 ML/MIN (>60); Glucose 164 mg/dl (74-100); Potassium 3.6 mmoL/L (3.5-5.1); Sodium 136 mmol/L (136-145)
--- NOTE | 2021-07-07 07:51 | P.CONPHA_ITS ---
[facility] Pharmacy VTE Monitoring - Patient Demographics Admission date: 07/07/21 Report Date: 07/07/21 Time: 07:52 Allergies/Adverse Reactions: Patient Allergies pregabalin [From Lyrica] Adverse Reaction (Verified 06/21/21 13:25) made skin crawl Height: 1.73 m Weight: 144.106 kg Patient Problems: Current Active Problems Low back pain (Acute) Lumbar radiculopathy (Acute) Obesity (Acute) Poorly controlled diabetes mellitus (Acute) Pneumonia (Acute) Bacteremia (Acute) Pneumonia (Acute) Chest pain (Acute) Neuropathy (Chronic) - VTE Risk Labs: VTE Related Lab Results Hgb 11.0 g/dL (14.1-18.0) L 07/07/21 06:43 Hct 36.7 % (42.0-52.0) L 07/07/21 06:43 Plt Count 425 K/mm3 (142-424) H 07/07/21 06:43 BUN 17 mg/dl (9-20) 07/07/21 06:43 Creatinine 1.10 mg/dl (0.66-1.25) 07/07/21 06:43 Estimated Creat Clear 78 mL/min (50-200) 07/07/21 06:43 Was VTE Risk Assessment Performed: Yes VTE Score: 6 VTE Risk Level: Moderate Risk Clinical Trial Participant: No - Prophylaxis VTE Prophylaxis Ordered?: Yes Types of VTE Prophylaxis: TEDS Knee High, Pharmacological Pharmacologic Type: Enoxaparin
[2021-07-07 08:00] VITALS: BP 153/92; PULSE 89; RESP 18; TEMP 36.8; O2SAT 96
--- NOTE | 2021-07-07 08:04 | HMH.PHACONS ---
- Pharmacy Consult Date: 07/07/21 Time: 08:04 Referring provider: DR. VALENZUELA Reason for Consult:: VANCOMYCIN CONSULT Allergies and ADEs:: Allergies Allergy/AdvReac Type Severity Reaction Status Date / Time pregabalin [From Lyrica] AdvReac made skin Verified 06/21/21 13:25 crawl Home Medications:: Home Medications Medication Instructions Recorded Confirmed Type aspirin 81 mg tablet,delayed 81 mg PO DAILY tab 10/27/17 07/07/21 History release cholecalciferol (vitamin D3) 1,250 1,250 mcg PO WEEKLY 01/18/21 07/07/21 History mcg (50,000 unit) capsule Doxazosin Mesylate [Cardura 4mg 2 mg PO BID 01/29/21 06/21/21 History Tab] Trazodone HCl 50 mg PO HS 03/08/21 07/07/21 History lorazepam 1 mg tablet 1 mg PO BIDP PRN 03/22/21 07/07/21 History albuterol sulfate 90 mcg/actuation 2 puff INHALATION Q4-6H PRN #8.5 g 03/25/21 07/07/21 Rx aerosol inhaler Budesonide/Formoterol Fumarate 2 puff IH BID 04/02/21 07/07/21 History [Budesonide-Formoterol 160-4.5] Duloxetine HCl [Cymbalta] 60 mg PO BID 04/03/21 07/07/21 History cyclobenzaprine 10 mg tablet 10 mg PO BID PRN #30 tab 04/19/21 07/07/21 Rx pantoprazole 40 mg tablet,delayed 40 mg PO DAILY #90 tab 05/18/21 07/07/21 Rx release lidocaine HCl 2 % mucosal solution 10 ml MUCOUS MEM BID PRN #100 ml 06/07/21 07/07/21 Rx dulaglutide 0.75 mg/0.5 mL 1 dose SQ WEEKLY 06/08/21 07/07/21 History subcutaneous pen injector metformin 500 mg tablet 500 mg PO DAILY tab 06/08/21 07/07/21 History potassium chloride 20 mEq 20 meq PO DAILY #90 tab 06/08/21 07/07/21 Rx tablet,extended release buPROPion HCL [Wellbutrin SR] 150 mg PO BID 06/09/21 07/07/21 History pramipexole 1 mg tablet 1 mg PO TID tab 06/09/21 07/07/21 History carvedilol 25 mg tablet 25 mg PO BID #180 tab 06/21/21 07/07/21 Rx insulin NPH-regular 70-30 U-100 85 unit SQ TID #30 ml 06/21/21 07/07/21 Rx insulin 100 unit/mL subcutaneous pen oxycodone-acetaminophen 5 mg-325 1 tab PO DAILY PRN #6 tab 07/01/21 07/07/21 Rx mg tablet torsemide 20 mg tablet 40 mg PO DAILY #60 tab 07/05/21 07/07/21 Rx Atorvastatin Calcium [Lipitor 80mg 80 mg PO HS 07/07/21 07/07/21 History Tablet*] Buspirone HCl [Buspirone 30mg 30 mg PO BID 07/07/21 07/07/21 History Tablets] Flash Glucose Sensor [FreeStyle See Rx Instructions .ROUTE TID 07/07/21 07/07/21 History Bessy 2 Sensor] Gabapentin 800 mg PO TID 07/07/21 07/07/21 History Insulin Glargine,Hum.rec.anlog 100 unit SQ HS 07/07/21 History [Toujeo Max U-300 SoloStar] Quetiapine Fumarate 300 mg PO HS 07/07/21 07/07/21 History levoFLOXacin [Levofloxacin 750MG 750 mg PO DAILY 07/07/21 07/07/21 History Tablet*] Height: 1.73 m Weight: 144.106 kg Laboratory Results:: Laboratory Results - last 24 hr 07/06/21 23:11: WBC 7.9, RBC 5.25, Hgb 11.1 L, Hct 37.1 L, MCV 70.6 L, MCH 21.1 L, MCHC 29.9 L, RDW 25.2 H*, Plt Count 445 H D, MPV 7.5, Neut % (Auto) 68.5, Lymph % (Auto) 18.8, [place] % (Auto) 7.1, Eos % (Auto) 4.1, Baso % (Auto) 1.6, Neut # (Auto) 5.4, Lymph # (Auto) 1.5, [place] # (Auto) 0.6, Eos # (Auto) 0.3, Baso # (Auto) 0.1 07/06/21 23:11: Sodium 136, Potassium 3.9, Chloride 93 L, Carbon Dioxide 36 H, Anion Gap 10.9, BUN 19, Creatinine 1.10, Estimated Creat Clear 78, Estimated GFR 71, Est GFR ( Amer) 86, Glucose 306 H, Calcium 9.0, Total Bilirubin 0.3, AST 51, ALT 42, Alkaline Phosphatase 157 H, Troponin I < 0.01, Total Protein 7.4, Albumin 3.9, Globulin 3.5 H, Albumin/Globulin Ratio 1.1, Procalcitonin 0.135 07/06/21 23:11: NT-Pro-B Natriuret Pep 40.0 07/07/21 00:00: SARS-CoV-2 (PCR) Not detected, Influenza A Untype (PCR) Not detected, Influenza Type B (PCR) Not detected 07/07/21 00:40: Lactate 1.1 07/07/21 02:00: Troponin I < 0.01 07/07/21 06:30: POC Glucose 179 H 07/07/21 06:43: WBC 8.3, RBC 5.17, Hgb 11.0 L, Hct 36.7 L, MCV 71.1 L, MCH 21.3 L, MCHC 30.0 L, RDW 25.3 H*, Plt Count 425 H, MPV 7.5, Neut % (Auto) 68.9, Lymph % (Auto) 19.2, [place] % (Auto) 7.6, E
[2021-07-07 08:20] VITALS: O2SAT 98
--- NOTE | 2021-07-07 08:32 | PC.NURSE ---
patient rested fair through night. Receiving iv antibiotics. Lorazepam given per request. advised to have home meds and cpap brought in from home.
--- NOTE | 2021-07-07 08:50 | PC.WOUNDNOTE ---
ulceration to lower abdominal fold, multiple abrasions and ulcerations to bilateral lower extremities
--- NOTE | 2021-07-07 09:44 | HMH.DCSUM ---
General - General Admission date:: 07/07/21 Discharge date: 07/07/21 HPI HPI: In summary this is a 51-year-old male with recent diagnosis of pneumonia presenting to the emergency department with chest pain. Patient clinically stable on arrival. Vital signs within normal limits. Concern for ACS, vasospasm, epigastric pain. Will obtain CBC, CMP, chest x-ray, EKG, troponin profile, BNP. Patient given 325 aspirin. On further questioning, he states that he ate spicy food at breakfast. His chest pain started after that. We will give 20 mg IV Pepcid and GI cocktail. Earlier today, patient had been called at home and informed of a positive blood culture result. Blood culture grew strep to coccus. Patient was going to follow-up in clinic tomorrow for recheck. However, he came to the emergency department tonight. Case discussed with Dr. Villagomez. We will give 2 g IV Rocephin and vancomycin. Initial laboratory results reassuring. No leukocytosis. Glucose 300. No anion gap. EKG shows sinus rhythm without evidence of ischemia. Initial troponin is undetectable. Will admit for observation, bacteremia and recent diagnosis of pneumonia. above per ER physician Patient was seen in the emergency room on 07-03-21. He was diagnosed with pneumonia. Chest x-ray showed mild airspace disease. He was given IV azithromycin and Rocephin and discharged on p.o. Levaquin instructions to follow-up with Dr. Mathis. He failed to follow-up. White count on that day was 16,000. Cultures were taken, subsequently came back positive. It appears that he is growing MRSA. He is on IV vancomycin pending further evaluation. Patient is complaining mostly of low back pain this morning. Radicular features into the left lower leg. He is able to rise from seated position. He is status post epidural injections and has refractory pain. Is having no active chest pain at time of his exam this morning. Hospital Course Hospital Course: Laboratory Tests 07/06/21 07/06/21 07/06/21 23:11 23:11 23:11 WBC 7.9 RBC 5.25 Hgb 11.1 L Hct 37.1 L MCV 70.6 L MCH 21.1 L MCHC 29.9 L RDW 25.2 H* Plt Count 445 H D MPV 7.5 Neut % (Auto) 68.5 Lymph % (Auto) 18.8 [place] % (Auto) 7.1 Eos % (Auto) 4.1 Baso % (Auto) 1.6 Neut # (Auto) 5.4 Lymph # (Auto) 1.5 [place] # (Auto) 0.6 Eos # (Auto) 0.3 Baso # (Auto) 0.1 Sodium 136 Potassium 3.9 Chloride 93 L Carbon Dioxide 36 H Anion Gap 10.9 BUN 19 Creatinine 1.10 Estimated Creat Clear 78 Estimated GFR 71 Est GFR ( Amer) 86 Glucose 306 H POC Glucose Lactate Calcium 9.0 Total Bilirubin 0.3 AST 51 ALT 42 Alkaline Phosphatase 157 H Troponin I < 0.01 NT-Pro-B Natriuret Pep 40.0 Total Protein 7.4 Albumin 3.9 Globulin 3.5 H Albumin/Globulin Ratio 1.1 Procalcitonin 0.135 SARS-CoV-2 (PCR) Influenza A Untype (PCR) Influenza Type B (PCR) 07/07/21 07/07/21 07/07/21 00:00 00:40 02:00 WBC RBC Hgb Hct MCV MCH MCHC RDW Plt Count MPV Neut % (Auto) Lymph % (Auto) [place] % (Auto) Eos % (Auto) Baso % (Auto) Neut # (Auto) Lymph # (Auto) [place] # (Auto) Eos # (Auto) Baso # (Auto) Sodium Potassium Chloride Carbon Dioxide Anion Gap BUN Creatinine Estimated Creat Clear Estimated GFR Est GFR ( Amer) Glucose POC Glucose Lactate 1.1 Calcium Total Bilirubin AST ALT Alkaline Phosphatase Troponin I < 0.01 NT-Pro-B Natriuret Pep Total Protein Albumin Globulin Albumin/Globulin Ratio Procalcitonin SARS-CoV-2 (PCR) Not detected Influenza A Untype (PCR) Not detected Influenza Type B (PCR) Not detected 07/07/21 07/07/21 07/07/21 06:30 06:43 06:43 WBC 8.3 RBC 5.17 Hgb 11.0 L Hct 36.7 L
--- NOTE | 2021-07-07 09:50 | SW/DCPLANNER ---
The plan is for this patient to discharge home today. Patient stated that he will have transportation home.
== END 2021-07-07 10:32 | disposition home or self-care (01) ==
LOC: ER 23:54 → 2ND 07-07 01:41
PROVIDERS: Admitting Provider Family Medicine; Emergency Provider Emergency Medicine; PCP Family Medicine; Visit Provider Emergency Medicine
DX: R78.81 Bacteremia (principal); J18.9 Pneumonia, unspecified organism; E11.65 Type 2 diabetes mellitus with hyperglycemia; Z79.4 Long term (current) use of insulin; Z79.899 Other long term (current) drug therapy; I11.0 Hypertensive heart disease with heart failure; I50.9 Heart failure, unspecified; I25.10 Atherosclerotic heart disease of native coronary artery without angina pectoris; M54.16 Radiculopathy, lumbar region; M54.42 Lumbago with sciatica, left side; G62.9 Polyneuropathy, unspecified; Z20.822 Contact with and (suspected) exposure to COVID-19
CPT/HCPCS: G0378; 36415; 71045; 80048; 80053; 82962; 83605; 83880; 84145; 84484; 85025; 93005; 96372; 99284; C9803; J0696; J3370; U0003; U0005

== ENCOUNTER → 2021-08-02 16:00 | Outpatient (CLI) | payer MEDICARE, MEDICAID, SELFPAY ==
[2021-08-02 13:55] LABS: Alanine Aminotransferase 42 U/L (12-78); Albumin Level 4.2 g/dl (3.5-5.0); Albumin/Globulin Ratio 1.3 (1.1-1.8); Alkaline Phosphatase 208 U/L (38-126); Anion Gap 16.2 mEq/L (5-15); Aspartate Amino Transferase 57 U/L (17-59); Bilirubin,Total 0.5 mg/dl (0.2-1.3); Blood Urea Nitrogen 29 mg/dl (9-20); Calcium 9.3 mg/dl (8.4-10.2); Carbon Dioxide 27 mmol/L (22.0-30.0); Chloride 94 mmol/L (98-107); Estimated Glomerular Filt Rate 64 ml/min (>60); GFR (African American) 78 ML/MIN (>60); Globulin 3.2 g/dL (1.3-3.2); Potassium 4.2 mmoL/L (3.5-5.1); Sodium 133 mmol/L (136-145); Total Protein,Serum 7.4 g/dl (6.3-8.2)
[2021-08-02 13:59] LABS: Basophils % 0.6 % (0.1-2.0); Eosinophils # 0.3 K/mm3 (0.0-0.4); Eosinophils % 4.3 % (0.1-12.0); Hematocrit 39.1 % (42.0-52.0); Hemoglobin 12.1 g/dL (14.1-18.0); Lymphocytes # 1.5 K/mm3 (0.7-4.5); Lymphocytes % 26.2 % (10-50); Mean Corpuscular Hemoglobin 22.8 pg (27.0-31.2); Mean Corpuscular Volume 73.8 fl (80-94); Mean Platelet Volume 8.7 fl (7.4-10.4); Monocytes # 0.5 K/mm3 (0.1-1.0); Monocytes % 9.4 % (1.7-9.3); Neutrophils # 3.4 K/mm3 (1.8-7.8); Neutrophils % 59.6 % (37.0-80.0); Platelet Count 469 K/mm3 (142-424); Red Cell Distribution Width 24.7 % (11.5-17.5); White Blood Count 5.8 K/mm3 (4.8-10.8)
[2021-08-02 14:00] LABS: Glucose 411 mg/dl (74-100)
[2021-08-02 15:15] LABS: Iron 47 ug/dL (49-181)
[2021-08-02 16:05] LABS: Hemoglobin A1C 11.4 % (4.0-6.0)
== END ==
PROVIDERS: Visit Provider Family Medicine
DX: G89.29 Other chronic pain (principal); M54.41 Lumbago with sciatica, right side; M54.42 Lumbago with sciatica, left side; E11.65 Type 2 diabetes mellitus with hyperglycemia; D64.9 Anemia, unspecified; Z79.4 Long term (current) use of insulin
CPT/HCPCS: 80053; 83036; 83540; 85025

== ENCOUNTER 2021-08-08 08:37 | Emergency (ER) | payer MEDICARE, MEDICAID, SELFPAY ==
[2021-08-08 08:38] VITALS: BMI 45.6
[2021-08-08 08:54] LABS: POC Glucose,Bedside 482 (70-110)
[2021-08-08 09:10] VITALS: BP 160/83; PULSE 93; RESP 16; TEMP 37.1; O2SAT 98; BMI 45.6
[2021-08-08 09:30] VITALS: BP 140/77; PULSE 88; RESP 16; O2SAT 98
--- NOTE | 2021-08-08 09:52 | PC.NURSE ---
COVID swab collected and sent to lab. Urinal also given to patient for urine sample.
[2021-08-08 10:02] LABS: Chloride 92 mmol/L (98-107); Potassium 3.9 mmoL/L (3.5-5.1); Sodium 131 mmol/L (136-145)
[2021-08-08 10:04] LABS: Blood Urea Nitrogen 22 mg/dl (9-20); Creatinine Clearance Estimated 66 mL/min (50-200); Estimated Glomerular Filt Rate 58 ml/min (>60); GFR (African American) 71 ML/MIN (>60)
[2021-08-08 10:05] LABS: Alanine Aminotransferase 52 U/L (12-78); Albumin Level 4.4 g/dl (3.5-5.0); Albumin/Globulin Ratio 1.1 (1.1-1.8); Alkaline Phosphatase 179 U/L (38-126); Anion Gap 11.9 mEq/L (5-15); Aspartate Amino Transferase 78 U/L (17-59); Bilirubin,Total 0.7 mg/dl (0.2-1.3); Carbon Dioxide 31 mmol/L (22.0-30.0); Globulin 3.9 g/dL (1.3-3.2); Total Protein,Serum 8.3 g/dl (6.3-8.2)
[2021-08-08 10:06] LABS: Basophils # 0.1 K/mm3 (0-0.2); Basophils % 1.3 % (0.1-2.0); Calcium 8.2 mg/dl (8.4-10.2); Eosinophils # 0.1 K/mm3 (0.0-0.4); Eosinophils % 2.5 % (0.1-12.0); Hemoglobin 12.7 g/dL (14.1-18.0); Lymphocytes # 1.2 K/mm3 (0.7-4.5); Lymphocytes % 21.8 % (10-50); Mean Corpuscular HGB Conc 29.5 g/dL (31.8-35.4); Mean Corpuscular Hemoglobin 22.5 pg (27.0-31.2); Mean Corpuscular Volume 76.2 fl (80-94); Mean Platelet Volume 8.3 fl (7.4-10.4); Monocytes # 0.4 K/mm3 (0.1-1.0); Monocytes % 7.6 % (1.7-9.3); Neutrophils # 3.7 K/mm3 (1.8-7.8); Neutrophils % 66.8 % (37.0-80.0); Platelet Count 326 K/mm3 (142-424); Red Blood Count 5.64 M/mm3 (4.60-6.20); Red Cell Distribution Width 23.6 % (11.5-17.5); White Blood Count 5.6 K/mm3 (4.8-10.8)
[2021-08-08 10:14] LABS: Glucose 409 mg/dl (74-100)
--- NOTE | 2021-08-08 10:19 | PC.NURSE ---
Princess from lab reported a critical glucose of 409. notified.
[2021-08-08 10:21] LABS: Acetone, Serum (Rapid) None Detected (None Detect)
--- NOTE | 2021-08-08 10:30 | PC.NURSE ---
urine collected and sent to the lab.
--- NOTE | 2021-08-08 10:31 | HMH.EDGENADL ---
ED Disposition Clinical Impression: Hyperglycemia, Viral respiratory illness Disposition: Home, Self-Care Condition on Discharge: Good Instructions: DI for Viral Upper Respiratory Infection -- Adult, DI for Hyperglycemia -- Adult Additional Instructions: Please follow up with your primary care physician in 2-3 days for further management. Continue to take your insulin as prescribed. Please continue to monitor your sugar level and speak with your primary care physician in regards to chronically uncontrolled sugar levels. Please continue to drink plenty of water and eat 3 balanced meals. Please return if symptoms don't improve, difficulty breathing, chest pain, dizziness or any other concerning symptoms. Referrals: Bert Villagomez MD [Primary Care Provider] - Time of Disposition: 11:55 - Critical Care Critical Care Time: No Attestation: On 08/08/21, the high probability of a clinically significant, sudden or life threatening deterioration of the following system(s) required my full and direct attention, intervention and personal management. The time I documented below is in addition to time spent performing reported procedures but includes the following listed in this critical care notation. Medical Decision Making - Medical Records Medical records reviewed: Yes: I reviewed the patient's medical records. - Fahad Inquiry Pt receiving controlled substance: No Vital Signs: 08/08/21 09:10 08/08/21 09:30 08/08/21 11:50 Temperature 98.7 F 98 F Temperature Source Oral Oral Pulse Rate 88 78 Pulse Rate [Radial] 93 H Respiratory Rate 16 16 16 Blood Pressure 140/77 155/74 H Blood Pressure [Right Arm] 160/83 H Blood Pressure Mean 96 Blood Pressure Mean [Right Arm] 108 Blood Pressure Position Sitting Blood Pressure Position [Right Arm] Sitting 02 Sat by Pulse Oximetry 98 98 Oxygen Delivery Method Room Air Room Air - Lab Data Lab results reviewed: Yes: I reviewed the patient's lab results. Lab Results 08/08/21 08:42: POC Glucose 482 H* 08/08/21 09:18: WBC 5.6, RBC 5.64, Hgb 12.7 L, Hct 43.0, MCV 76.2 L, MCH 22.5 L, MCHC 29.5 L, RDW 23.6 H, Plt Count 326, MPV 8.3, Neut % (Auto) 66.8, Lymph % (Auto) 21.8, [place] % (Auto) 7.6, Eos % (Auto) 2.5, Baso % (Auto) 1.3, Neut # (Auto) 3.7, Lymph # (Auto) 1.2, [place] # (Auto) 0.4, Eos # (Auto) 0.1, Baso # (Auto) 0.1 08/08/21 09:18: Sodium 131 L, Potassium 3.9, Chloride 92 L, Carbon Dioxide 31 H, Anion Gap 11.9, BUN 22 H, Creatinine 1.30 H, Estimated Creat Clear 66, Estimated GFR 58 L, Est GFR ( Amer) 71, Glucose 409 H*, Calcium 8.2 L, Total Bilirubin 0.7, AST 78 H, ALT 52, Alkaline Phosphatase 179 H, Total Protein 8.3 H, Albumin 4.4, Globulin 3.9 H, Albumin/Globulin Ratio 1.1 08/08/21 09:18: Acetone Level None detected 08/08/21 09:43: VBG pH 7.40, VBG pCO2 43.6, VBG pO2 59.5 H, VBG HCO3 26.3, VBG Total CO2 27.7 H, VBG O2 Saturation 90.4 H, VBG Base Excess 1.5 08/08/21 10:10: Lactate 1.9 08/08/21 10:33: Urine Color Yellow, Urine Appearance Clear, Urine pH 5.5, Ur Specific [place] 1.010, Urine Protein 2+, Urine Glucose (UA) 3+, Urine Ketones Negative, Urine Blood Trace-l, Urine Nitrate Negative, Urine Bilirubin Negative, Urine Urobilinogen 0.2, Ur Leukocyte Esterase Negative, Ur Squamous Epith Cells 3-5 Result diagrams: 08/08/21 09:18 08/08/21 09:18 Orders (Tests/Meds): ORDERS Category Date Time Status Covid-19 Nasal PCR ([facility]) Routine Lab 08/08/21 09:51 Received Medical Decision Narrative: Mr. Wyatt is a 51 yo male w/ multiple comobridities including uncontrolled T2DM who presents to the ED for hyperglycemia in the setting of muscle aches and worsening congestion. Patient is afebrile and hemodynamically stable. Sugar on arrival 400. Patient is well appearing on physical exam breathing comfortably, in no distress. Differentials to consider but not limited to include: Viral mediated illness including covid 19, medication non compliance other infectious etiology,
[2021-08-08 10:39] LABS: VBG Base Excess 1.5 mmol/L (-2.4-2.3); VBG HCO3 26.3 mmol/L (23-30); VBG Oxygen Saturation 90.4 % (50-70); VBG PCO2 43.6 mmol/L (35-51); VBG PO2 59.5 mmol/L (28-40); VBG Total CO2 27.7 mmol/L (23-27)
[2021-08-08 10:40] LABS: Microscopic, Urine URINE MICROSCOPIC (MICROSCOPIC)
[2021-08-08 10:43] LABS: Lactic Acid 1.9 mmol/L (0.7-2.1)
[2021-08-08 10:55] LABS: Appearance,Urine CLEAR (Clear); Bilirubin,Urine Negative (Negative); Blood, Urine TRACE-L (Negative); Color,Urine YELLOW (Yellow); Glucose,Urine (UA) 3+ (Negative); Ketones,Urine Negative (Negative); Leukocyte Esterase,Urine Negative (Negative); Nitrate,Urine Negative (Negative); PH,Urine 5.5 (5.0-8.5); Protein,Urine 2+ (Negative); Urobilinogen,Urine 0.2 EU/dl (0.2)
[2021-08-08 11:50] VITALS: BP 155/74; PULSE 78; RESP 16; TEMP 36.6; O2SAT 98
== END 2021-08-08 11:52 | disposition home or self-care (01) ==
PROVIDERS: Emergency Provider Student in an Organized Health Care Education/Training Program; PCP Family Medicine
DX: E11.65 Type 2 diabetes mellitus with hyperglycemia (principal); J06.9 Acute upper respiratory infection, unspecified; I25.10 Atherosclerotic heart disease of native coronary artery without angina pectoris; E78.5 Hyperlipidemia, unspecified; I10 Essential (primary) hypertension; I48.0 Paroxysmal atrial fibrillation; F41.8 Other specified anxiety disorders; K21.9 Gastro-esophageal reflux disease without esophagitis; F17.290 Nicotine dependence, other tobacco product, uncomplicated; Z79.899 Other long term (current) drug therapy
CPT/HCPCS: 80053; 81001; 82009; 82803; 82962; 83605; 85025; 99283; C9803; U0003; U0005

== ENCOUNTER 2021-08-28 10:11 | Emergency (ER) | payer MEDICARE, MEDICAID, SELFPAY ==
[2021-08-28 10:11] VITALS: BP 155/82; PULSE 93; RESP 18; TEMP 36.8; O2SAT 96; BMI 45.6
[2021-08-28 10:24] LABS: POC Glucose,Bedside 534 (70-110)
[2021-08-28 11:20] VITALS: BP 144/77
[2021-08-28 11:37] LABS: Basophils # 0.1 K/mm3 (0-0.2); Basophils % 1.1 % (0.1-2.0); Eosinophils # 0.3 K/mm3 (0.0-0.4); Eosinophils % 3.6 % (0.1-12.0); Hematocrit 37.8 % (42.0-52.0); Hemoglobin 11.7 g/dL (14.1-18.0); Lymphocytes # 1.5 K/mm3 (0.7-4.5); Mean Corpuscular HGB Conc 30.8 g/dL (31.8-35.4); Mean Corpuscular Hemoglobin 22.8 pg (27.0-31.2); Mean Platelet Volume 8.6 fl (7.4-10.4); Monocytes # 0.5 K/mm3 (0.1-1.0); Monocytes % 6.8 % (1.7-9.3); Neutrophils # 4.9 K/mm3 (1.8-7.8); Neutrophils % 67.5 % (37.0-80.0); Platelet Count 345 K/mm3 (142-424); Red Cell Distribution Width 21.3 % (11.5-17.5); White Blood Count 7.3 K/mm3 (4.8-10.8)
[2021-08-28 11:47] LABS: Chloride 91 mmol/L (98-107)
[2021-08-28 11:48] LABS: Potassium 4.5 mmoL/L (3.5-5.1); Sodium 131 mmol/L (136-145)
[2021-08-28 11:50] LABS: Alanine Aminotransferase 49 U/L (12-78); Alkaline Phosphatase 247 U/L (38-126); Aspartate Amino Transferase 51 U/L (17-59); Bilirubin,Total 0.4 mg/dl (0.2-1.3); Blood Urea Nitrogen 27 mg/dl (9-20); Creatinine Clearance Estimated 53 mL/min (50-200); Estimated Glomerular Filt Rate 46 ml/min (>60); GFR (African American) 56 ML/MIN (>60)
[2021-08-28 11:51] LABS: Albumin Level 3.8 g/dl (3.5-5.0); Albumin/Globulin Ratio 1.2 (1.1-1.8); Anion Gap 12.5 mEq/L (5-15); Calcium 7.7 mg/dl (8.4-10.2); Carbon Dioxide 32 mmol/L (22.0-30.0); Globulin 3.2 g/dL (1.3-3.2)
[2021-08-28 11:52] LABS: Glucose 446 mg/dl (74-100)
--- NOTE | 2021-08-28 11:52 | HMH.EDGENADL ---
ED Disposition Clinical Impression: Hyperglycemia without ketosis Disposition: Home, Self-Care Condition on Discharge: Good Instructions: DI for Hyperglycemia -- Adult Referrals: Star Mathis MD [Primary Care Provider] - - Critical Care Critical Care Time: No Attestation: On 08/28/21, the high probability of a clinically significant, sudden or life threatening deterioration of the following system(s) required my full and direct attention, intervention and personal management. The time I documented below is in addition to time spent performing reported procedures but includes the following listed in this critical care notation. Medical Decision Making - Medical Records Medical records reviewed: Yes: I reviewed the patient's medical records. - Fahad Inquiry Pt receiving controlled substance: No Vital Signs: 08/28/21 10:11 08/28/21 11:20 Temperature 98.3 F Temperature Source Oral Pulse Rate [Left Radial] 93 H Respiratory Rate 18 Blood Pressure 144/77 H Blood Pressure [Right Arm] 155/82 H Blood Pressure Mean [Right Arm] 106 Blood Pressure Source [Right Arm] Automatic Cuff Blood Pressure Position [Right Arm] Sitting 02 Sat by Pulse Oximetry 96 Oxygen Delivery Method Room Air - Lab Data Lab Results 08/28/21 10:15: POC Glucose 534 H* 08/28/21 11:30: WBC 7.3, RBC 5.10, Hgb 11.7 L, Hct 37.8 L, MCV 74.0 L, MCH 22.8 L, MCHC 30.8 L, RDW 21.3 H, Plt Count 345, MPV 8.6, Neut % (Auto) 67.5, Lymph % (Auto) 21.0, [place] % (Auto) 6.8, Eos % (Auto) 3.6, Baso % (Auto) 1.1, Neut # (Auto) 4.9, Lymph # (Auto) 1.5, [place] # (Auto) 0.5, Eos # (Auto) 0.3, Baso # (Auto) 0.1 08/28/21 11:30: Sodium 131 L, Potassium 4.5, Chloride 91 L, Carbon Dioxide 32 H, Anion Gap 12.5, BUN 27 H, Creatinine 1.60 H, Estimated Creat Clear 53, Estimated GFR 46 L, Est GFR ( Amer) 56 L, Glucose 446 H*, Calcium 7.7 L, Total Bilirubin 0.4, AST 51, ALT 49, Alkaline Phosphatase 247 H, Total Protein 7.0, Albumin 3.8, Globulin 3.2, Albumin/Globulin Ratio 1.2, Acetone Level None detected Result diagrams: 08/28/21 11:30 08/28/21 11:30 Orders (Tests/Meds): ED MEDICATIONS Discontinued Medications Generic Name Dose Route Start Last Admin Trade Name Jeremy PRN Reason Stop Dose Admin Sodium Chloride 1,000 mls @ 999 mls/hr 08/28/21 10:30 08/28/21 11:23 Sod Chlor 0.9% 1000ml Bag IV 08/28/21 11:30 999 mls/hr .Q1H1M CARLIN Administration Insulin Human Regular 10 unit 08/28/21 10:19 08/28/21 11:23 Insulin Human Regular 100 Units/Ml 10ml Vial IVP 08/28/21 10:20 10 unit ONCE ONE Administration - Reevaluation(s) Time: 12:06 Reevaluation #1: On reevaluation, the patient is feeling better. Symptoms are improving. Glucose is improved. Patient was counseled on the importance of maintaining adequate glucose levels. Needs to follow-up with PCP in 48 hours. Given strict return precautions. Verbalized understanding. Medical Decision Narrative: 51-year-old male presenting with elevated blood sugar. Patient frequently has this issue. Longstanding diabetic. Patient was provided fluids and insulin. Work-up initiated. General Adult HPI - General Chief complaint: Hyper/Hypoglycemia Stated complaint: high sugar Time Seen by Provider: 08/28/21 10:15 Mode of Arrival: Ambulatory Limitations: No Limitations Description of Symptoms (Recalled from ER Triage Doc. by RN): c/o high sugar despite taking his insulin this morning - History of Present Illness HPI narrative: 51-year-old male with longstanding history of diabetes presenting with elevated blood sugar. Patient states that he is not been compliant with his insulin. He has not at home, however he often forgets to take his medications. States that he checked it today and it was reading is high. Other than that he is not having any other symptoms. No headache or change in vision. No focal weakness. No chest pain or shortness of breath. Abdominal pain or vomiting
[2021-08-28 12:03] LABS: Acetone, Serum (Rapid) None Detected (None Detect)
[2021-08-28 12:32] VITALS: BP 145/87; PULSE 91; RESP 17; TEMP 36.8; O2SAT 97
== END 2021-08-28 12:35 | disposition home or self-care (01) ==
PROVIDERS: Emergency Provider Emergency Medicine; PCP Emergency Medicine
DX: E11.65 Type 2 diabetes mellitus with hyperglycemia (principal); E11.649 Type 2 diabetes mellitus with hypoglycemia without coma; I11.0 Hypertensive heart disease with heart failure; I50.9 Heart failure, unspecified; I48.91 Unspecified atrial fibrillation; E78.5 Hyperlipidemia, unspecified; K21.9 Gastro-esophageal reflux disease without esophagitis; F32.A Depression, unspecified; F41.9 Anxiety disorder, unspecified; Z79.4 Long term (current) use of insulin; Z79.51 Long term (current) use of inhaled steroids; Z79.82 Long term (current) use of aspirin; Z79.899 Other long term (current) drug therapy; Z88.8 Allergy status to other drugs, medicaments and biological substances
CPT/HCPCS: 80053; 82009; 82962; 85025; 96361; 96365; 96374; 96375; 99284

== ENCOUNTER 2021-08-30 07:33 | Emergency (ER) | payer MEDICARE, MEDICAID, SELFPAY ==
[2021-08-30 07:34] VITALS: BP 177/85; PULSE 94; RESP 28; TEMP 36.6; O2SAT 96; BMI 42.5
--- NOTE | 2021-08-30 07:44 | ECG_ITS ---
APPROVED REPORT Exam: Resting ECG HR:88 bpm ECG Measurements Heart Rate 88 AXES TX 158 P 46 QRSd 108 QRS 16 QT 368 T 16 QTc 414 Conclusion SINUS RHYTHM INFERIOR MYOCARDIAL INFARCTION , New changes since 06/2021 ABNORMAL ECG UNCONFIRMED REPORT Electronically signed by : Cameron Kohli MD 08/30/2021 19:48:54
--- NOTE | 2021-08-30 07:46 | XR_ITS ---
FINAL REPORT CLINICAL HISTORY: sob COMPARISON: July 06, 2021 FINDINGS: A single portable view of the chest was obtained. The heart size and pulmonary vascularity are within normal limits. The mediastinum is within normal limits. There are bibasilar pulmonary opacities consistent with atelectasis or pneumonia. The bony thorax is intact. IMPRESSION: Bibasilar atelectasis or pneumonia. Reviewed, Interpreted and Dictated by De Velez III, MD Transcribed by Chanel Colin Authenticated by De Velez III, MD on 08/30/2021 08:57:49 AM [facility]
[2021-08-30 08:11] LABS: Basophils # 0.1 K/mm3 (0-0.2); Eosinophils # 0.2 K/mm3 (0.0-0.4); Eosinophils % 2.5 % (0.1-12.0); Hematocrit 36.8 % (42.0-52.0); Hemoglobin 11.3 g/dL (14.1-18.0); Lymphocytes # 1.4 K/mm3 (0.7-4.5); Lymphocytes % 14.6 % (10-50); Mean Corpuscular HGB Conc 30.8 g/dL (31.8-35.4); Mean Corpuscular Hemoglobin 22.6 pg (27.0-31.2); Mean Corpuscular Volume 73.5 fl (80-94); Monocytes # 0.7 K/mm3 (0.1-1.0); Monocytes % 6.8 % (1.7-9.3); Neutrophils # 7.1 K/mm3 (1.8-7.8); Neutrophils % 75.1 % (37.0-80.0); Platelet Count 348 K/mm3 (142-424); Red Blood Count 5.01 M/mm3 (4.60-6.20); Red Cell Distribution Width 21.3 % (11.5-17.5); White Blood Count 9.5 K/mm3 (4.8-10.8)
[2021-08-30 08:18] LABS: Alanine Aminotransferase 39 U/L (12-78); Albumin/Globulin Ratio 1.2 (1.1-1.8); Alkaline Phosphatase 170 U/L (38-126); Aspartate Amino Transferase 38 U/L (17-59); Bilirubin,Total 0.4 mg/dl (0.2-1.3); Blood Urea Nitrogen 20 mg/dl (9-20); Calcium 8.6 mg/dl (8.4-10.2); Carbon Dioxide 32 mmol/L (22.0-30.0); Chloride 97 mmol/L (98-107); Creatinine Clearance Estimated 78 mL/min (50-200); Estimated Glomerular Filt Rate 71 ml/min (>60); GFR (African American) 86 ML/MIN (>60); Globulin 3.4 g/dL (1.3-3.2); Glucose 288 mg/dl (74-100); Sodium 137 mmol/L (136-145); Total Protein,Serum 7.4 g/dl (6.3-8.2)
[2021-08-30 08:30] LABS: NT Pro Brain Natriuretic Pep. 72.9 pg/mL (0-125)
[2021-08-30 08:37] LABS: Troponin I < 0.01 ng/ml (0.00-0.034)
[2021-08-30 08:59] VITALS: BP 164/96; PULSE 78; RESP 28; O2SAT 96
--- NOTE | 2021-08-30 09:08 | PC.NURSE ---
pt up ambulatory to bathroom without assist. cary well
--- NOTE | 2021-08-30 09:08 | HMH.EDGENADL ---
ED Disposition Clinical Impression: Community acquired pneumonia, Venous insufficiency (chronic) (peripheral) Disposition: Home, Self-Care Condition on Discharge: Good Instructions: Pneumonia-Adult, Chronic Venous Insufficiency Additional Instructions: Please follow up with your primary care physician in 2-3 days for further management. Please utilize the Azithromycin and the Augmentin as prescribed for your pneumonia. You have chronic venous insufficiency. Please utilize your compression stockings to help with the swelling in your legs. Please also elevate your legs when you are able to, especially at night. Please continue to use your water pill as prescribed. Please return if chest pain, difficulty breathing, or any other concerning symptoms. Prescriptions: Amoxicillin/Potassium Clav [Augmentin 500mg tab] 500 mg PO TID #21 tab Transmission Status: Received by [facility] Azithromycin [Azithromycin 500mg Tab] 500 mg PO DAILY #3 tab Transmission Status: Received by [facility] Compression Socks, X-Large [Compression Socks] 1 each MC DAILY #2 each Transmission Status: Received by [facility] Referrals: Star Mathis MD [Primary Care Provider] - Time of Disposition: 09:20 - Critical Care Critical Care Time: No Attestation: On 08/30/21, the high probability of a clinically significant, sudden or life threatening deterioration of the following system(s) required my full and direct attention, intervention and personal management. The time I documented below is in addition to time spent performing reported procedures but includes the following listed in this critical care notation. Medical Decision Making - Medical Records Medical records reviewed: Yes: I reviewed the patient's medical records. - Fahad Inquiry Pt receiving controlled substance: No Vital Signs: 08/30/21 07:34 08/30/21 08:59 08/30/21 09:21 Temperature 97.8 F 98 F Temperature Source Oral Oral Pulse Rate 78 87 Pulse Rate [Radial] 94 H Respiratory Rate 28 H 28 H 22 Blood Pressure 164/96 H 168/78 H Blood Pressure [Right Arm] 177/85 H Blood Pressure Mean [Right Arm] 115 Blood Pressure Position Sitting Sitting Blood Pressure Position [Right Arm] Sitting 02 Sat by Pulse Oximetry 96 96 Oxygen Delivery Method Room Air Room Air Room Air - Lab Data Lab results reviewed: Yes: I reviewed the patient's lab results. Lab Results 08/30/21 07:47: WBC 9.5 D, RBC 5.01, Hgb 11.3 L, Hct 36.8 L, MCV 73.5 L, MCH 22.6 L, MCHC 30.8 L, RDW 21.3 H, Plt Count 348, MPV 8.0, Neut % (Auto) 75.1, Lymph % (Auto) 14.6, [place] % (Auto) 6.8, Eos % (Auto) 2.5, Baso % (Auto) 1.0, Neut # (Auto) 7.1, Lymph # (Auto) 1.4, [place] # (Auto) 0.7, Eos # (Auto) 0.2, Baso # (Auto) 0.1 08/30/21 07:47: Sodium 137, Potassium 4.0, Chloride 97 L, Carbon Dioxide 32 H, Anion Gap 12.0, BUN 20 D, Creatinine 1.10 D, Estimated Creat Clear 78, Estimated GFR 71, Est GFR ( Amer) 86 D, Glucose 288 H, Calcium 8.6, Total Bilirubin 0.4, AST 38 D, ALT 39, Alkaline Phosphatase 170 H, Troponin I < 0.01, NT-Pro-B Natriuret Pep 72.9, Total Protein 7.4, Albumin 4.0, Globulin 3.4 H, Albumin/Globulin Ratio 1.2 Result diagrams: 08/30/21 07:47 08/30/21 07:47 Orders (Tests/Meds): ED MEDICATIONS Discontinued Medications Generic Name Dose Route Start Last Admin Trade Name Freq PRN Reason Stop Dose Admin Acetaminophen 1,000 mg 08/30/21 08:38 08/30/21 08:47 Acetaminophen 500mg Tab PO 08/30/21 08:39 1,000 mg ONCE ONE Administration Ketorolac Tromethamine 30 mg 08/30/21 08:38 08/30/21 08:47 Ketorolac 30mg/Ml Vial IM 08/30/21 08:39 Not Given ONCE ONE Ketorolac Tromethamine 30 mg 08/30/21 08:44 08/30/21 08:46 Ketorolac 30mg/Ml Vial IV 08/30/21 08:45 30 mg ONCE ONE Administration Medical Decision Narrative: Mr. Wyatt is a 51 yo male w/ PMH for multiple comorbidities including uncontrolled DM and venous insuffiecienc
[2021-08-30 09:21] VITALS: BP 168/78; PULSE 87; RESP 22; TEMP 36.6; O2SAT 98
== END 2021-08-30 09:22 | disposition home or self-care (01) ==
PROVIDERS: Emergency Provider Student in an Organized Health Care Education/Training Program; PCP Emergency Medicine
DX: J18.9 Pneumonia, unspecified organism (principal); R06.02 Shortness of breath; M79.89 Other specified soft tissue disorders; I11.0 Hypertensive heart disease with heart failure; I50.9 Heart failure, unspecified; I73.9 Peripheral vascular disease, unspecified; I25.10 Atherosclerotic heart disease of native coronary artery without angina pectoris; I48.91 Unspecified atrial fibrillation; I87.2 Venous insufficiency (chronic) (peripheral); N28.9 Disorder of kidney and ureter, unspecified; K21.9 Gastro-esophageal reflux disease without esophagitis; E78.5 Hyperlipidemia, unspecified; E11.65 Type 2 diabetes mellitus with hyperglycemia; E66.01 Morbid (severe) obesity due to excess calories; F32.A Depression, unspecified; F41.9 Anxiety disorder, unspecified; F17.290 Nicotine dependence, other tobacco product, uncomplicated; Z79.4 Long term (current) use of insulin; Z79.51 Long term (current) use of inhaled steroids; Z79.82 Long term (current) use of aspirin; Z79.84 Long term (current) use of oral hypoglycemic drugs; Z79.899 Other long term (current) drug therapy; Z88.0 Allergy status to penicillin; Z68.41 Body mass index [BMI] 40.0-44.9, adult
CPT/HCPCS: 71045; 80053; 83880; 84484; 85025; 93005; 96374; 99285

== ENCOUNTER 2021-09-03 17:07 | Emergency (ER) | payer MEDICARE, MEDICAID, SELFPAY ==
[2021-09-03 17:08] VITALS: BP 171/100; PULSE 86; RESP 18; TEMP 36.9; O2SAT 99; BMI 44.8
--- NOTE | 2021-09-03 17:28 | HMH.EDGENADL ---
ED Disposition Clinical Impression: Lumbar radiculopathy, Hyperglycemia Disposition: Home, Self-Care Condition on Discharge: Good Instructions: DI for Chronic Pain -- Adult Referrals: Bert Villagomez MD [Primary Care Provider] - - Critical Care Critical Care Time: No Attestation: On 09/03/21, the high probability of a clinically significant, sudden or life threatening deterioration of the following system(s) required my full and direct attention, intervention and personal management. The time I documented below is in addition to time spent performing reported procedures but includes the following listed in this critical care notation. Medical Decision Making - Medical Records Medical records reviewed: Yes: I reviewed the patient's medical records. - Fahad Inquiry Pt receiving controlled substance: No Vital Signs: 09/03/21 17:08 09/03/21 17:31 09/03/21 18:01 Temperature 98.4 F Temperature Source Oral Pulse Rate 88 86 Pulse Rate [Left Radial] 86 Respiratory Rate 18 26 H 16 Blood Pressure 170/83 H 138/73 Blood Pressure [Left Arm] 171/100 H Blood Pressure Mean 104 94 Blood Pressure Mean [Left Arm] 123 Blood Pressure Source [Left Arm] Automatic Cuff Blood Pressure Position [Left Arm] Sitting 02 Sat by Pulse Oximetry 99 97 98 Oxygen Delivery Method Room Air - Lab Data Lab Results 09/03/21 17:40: WBC 6.4, RBC 5.19, Hgb 11.9 L, Hct 38.6 L, MCV 74.3 L, MCH 22.8 L, MCHC 30.8 L, RDW 20.8 H, Plt Count 383, MPV 8.8, Neut % (Auto) 70.7, Lymph % (Auto) 18.2, [place] % (Auto) 6.7, Eos % (Auto) 3.5, Baso % (Auto) 1.0, Neut # (Auto) 4.5, Lymph # (Auto) 1.2, [place] # (Auto) 0.4, Eos # (Auto) 0.2, Baso # (Auto) 0.1 09/03/21 17:40: Sodium 130 L, Potassium 4.1, Chloride 88 L, Carbon Dioxide 35 H, Anion Gap 11.1, BUN 29 H, Creatinine 1.30 H, Estimated Creat Clear 66, Estimated GFR 58 L, Est GFR ( Amer) 71, Glucose 475 H*, Calcium 8.2 L, Total Bilirubin 0.4, AST 71 H, ALT 59, Alkaline Phosphatase 250 H, Total Protein 7.7, Albumin 4.1, Globulin 3.6 H, Albumin/Globulin Ratio 1.1 Result diagrams: 09/03/21 17:40 09/03/21 17:40 Orders (Tests/Meds): ED MEDICATIONS Generic Name Dose Route Start Last Admin Trade Name Freq PRN Reason Stop Dose Admin Sodium Chloride 1,000 mls @ 999 mls/hr 09/03/21 18:30 09/03/21 18:40 Sod Chlor 0.9% 1000ml Bag IV 09/03/21 19:30 999 mls/hr .Q1H1M CARLIN Administration Discontinued Medications Generic Name Dose Route Start Last Admin Trade Name Freq PRN Reason Stop Dose Admin Insulin Human Regular 10 unit 09/03/21 18:30 09/03/21 18:40 Insulin Human Regular 100 Units/Ml 10ml Vial IVP 09/03/21 18:31 10 unit ONCE ONE Administration Morphine Sulfate 4 mg 09/03/21 17:20 09/03/21 17:42 Morphine 4mg/Ml Syringe IV 09/03/21 17:21 4 mg ONCE ONE Administration Ondansetron HCl 4 mg 09/03/21 17:20 09/03/21 17:42 Ondansetron 4mg/2ml Vial IV 09/03/21 17:21 4 mg ONCE ONE Administration - Reevaluation(s) Time: 18:49 Reevaluation #1: On reevaluation, patient is feeling better. Glucose remains significantly elevated. I did have a long discussion with the patient regarding medication compliance and the dangers of misusing his medication. We did provide fluids as well as insulin in the emergency department. Patient is to follow-up with his PCP. Given strict return precautions. Verbalized understanding. Medical Decision Narrative: 51-year-old male presented to the emergency department with some muscle cramping as well as elevated blood sugar. Patient is seen frequently for these issues. Noncompliant with medications. No obvious deformity on exam. Work-up initiated. General Adult HPI - General Chief complaint: PAIN Stated complaint: cant get up, legs are stiff, back pain Time Seen by Provider: 09/03/21 17:10 Mode of Arrival: Wheelchair Limitations: No Limitations Description of Symptoms (Recalled from ER Triage Doc. by RN)
[2021-09-03 17:31] VITALS: BP 170/83; PULSE 88; RESP 26; O2SAT 97
[2021-09-03 17:52] LABS: Basophils # 0.1 K/mm3 (0-0.2); Eosinophils # 0.2 K/mm3 (0.0-0.4); Eosinophils % 3.5 % (0.1-12.0); Hematocrit 38.6 % (42.0-52.0); Hemoglobin 11.9 g/dL (14.1-18.0); Lymphocytes # 1.2 K/mm3 (0.7-4.5); Lymphocytes % 18.2 % (10-50); Mean Corpuscular HGB Conc 30.8 g/dL (31.8-35.4); Mean Corpuscular Hemoglobin 22.8 pg (27.0-31.2); Mean Corpuscular Volume 74.3 fl (80-94); Mean Platelet Volume 8.8 fl (7.4-10.4); Monocytes # 0.4 K/mm3 (0.1-1.0); Monocytes % 6.7 % (1.7-9.3); Neutrophils # 4.5 K/mm3 (1.8-7.8); Neutrophils % 70.7 % (37.0-80.0); Platelet Count 383 K/mm3 (142-424); Red Blood Count 5.19 M/mm3 (4.60-6.20); Red Cell Distribution Width 20.8 % (11.5-17.5); White Blood Count 6.4 K/mm3 (4.8-10.8)
[2021-09-03 18:01] VITALS: BP 138/73; PULSE 86; RESP 16; O2SAT 98
[2021-09-03 18:07] LABS: Chloride 88 mmol/L (98-107); Sodium 130 mmol/L (136-145)
[2021-09-03 18:08] LABS: Potassium 4.1 mmoL/L (3.5-5.1)
[2021-09-03 18:10] LABS: Alanine Aminotransferase 59 U/L (12-78); Albumin Level 4.1 g/dl (3.5-5.0); Albumin/Globulin Ratio 1.1 (1.1-1.8); Alkaline Phosphatase 250 U/L (38-126); Anion Gap 11.1 mEq/L (5-15); Aspartate Amino Transferase 71 U/L (17-59); Bilirubin,Total 0.4 mg/dl (0.2-1.3); Carbon Dioxide 35 mmol/L (22.0-30.0); Globulin 3.6 g/dL (1.3-3.2); Total Protein,Serum 7.7 g/dl (6.3-8.2)
[2021-09-03 18:11] LABS: Calcium 8.2 mg/dl (8.4-10.2)
[2021-09-03 18:16] LABS: Creatinine Clearance Estimated 66 mL/min (50-200); Estimated Glomerular Filt Rate 58 ml/min (>60); GFR (African American) 71 ML/MIN (>60)
[2021-09-03 18:26] LABS: Glucose 475 mg/dl (74-100)
--- NOTE | 2021-09-03 18:27 | PC.NURSE ---
Esteban called from lab and reported a critical glucose of 475.
[2021-09-03 18:34] LABS: Blood Urea Nitrogen 29 mg/dl (9-20)
[2021-09-03 19:51] VITALS: BP 138/69; PULSE 89; RESP 20; TEMP 36.7; O2SAT 96
== END 2021-09-03 19:55 ==
PROVIDERS: Emergency Provider Emergency Medicine; PCP Family Medicine
DX: M54.16 Radiculopathy, lumbar region (principal); E11.65 Type 2 diabetes mellitus with hyperglycemia; I25.10 Atherosclerotic heart disease of native coronary artery without angina pectoris; K21.9 Gastro-esophageal reflux disease without esophagitis; I10 Essential (primary) hypertension; E78.5 Hyperlipidemia, unspecified; I48.0 Paroxysmal atrial fibrillation; F17.210 Nicotine dependence, cigarettes, uncomplicated; Z79.899 Other long term (current) drug therapy
CPT/HCPCS: 80053; 85025; 96365; 96375; 99284; J2405

== ENCOUNTER 2021-09-29 04:51 | Emergency (ER) | payer MEDICARE, MEDICAID, SELFPAY ==
[2021-09-29 04:53] VITALS: BP 172/96; PULSE 88; RESP 24; TEMP 36.6; O2SAT 99; BMI 45.6
--- NOTE | 2021-09-29 06:05 | HMH.EDGENADL ---
ED Disposition Clinical Impression: Chronic venous stasis dermatitis of both lower extremities Disposition: Home, Self-Care Condition on Discharge: Good Instructions: DI for Edema Due to Venous Stasis Additional Instructions: will need to see [facility] care Prescriptions: clindamycin HCL [Clindamycin HCl] 300 mg PO TID #30 cap Transmission Status: Pending to [facility] Referrals: Bert Villagomez MD [Primary Care Provider] - - Critical Care Critical Care Time: No Attestation: On 09/29/21, the high probability of a clinically significant, sudden or life threatening deterioration of the following system(s) required my full and direct attention, intervention and personal management. The time I documented below is in addition to time spent performing reported procedures but includes the following listed in this critical care notation. Medical Decision Making - Medical Records Medical records reviewed: Yes: I reviewed the patient's medical records. - Fahad Inquiry Pt receiving controlled substance: No Vital Signs: 09/29/21 04:53 Temperature 97.9 F Temperature Source Oral Pulse Rate [Right Radial] 88 Respiratory Rate 24 Blood Pressure [Right Arm] 172/96 H Blood Pressure Mean [Right Arm] 121 Blood Pressure Source [Right Arm] Automatic Cuff Blood Pressure Position [Right Arm] Sitting 02 Sat by Pulse Oximetry 99 Oxygen Delivery Method Room Air - Lab Data Lab results reviewed: Yes: I reviewed the patient's lab results. Medical Decision Narrative: has chronic changes lower ext bilat General Adult HPI - General Chief complaint: PAIN Stated complaint: thinks legs are infected Time Seen by Provider: 09/29/21 06:05 Mode of Arrival: Wheelchair Source of Information: Patient, Medical Record Limitations: No Limitations Description of Symptoms (Recalled from ER Triage Doc. by RN): Pt c/o pain in his BLE and open areas. He was seen by his PCP last week and started on an abx. He says he has an infection in his legs and his heel hurts. - History of Present Illness HPI narrative: has swollen lower legs and present for eval Onset (ago): day(s) Location: lower extremity Severity: moderate Associated symptoms: denies other symptoms - Related Data Home Medications Medication Instructions Recorded Confirmed aspirin 81 mg tablet,delayed 81 mg PO DAILY tab 10/27/17 09/06/21 release cholecalciferol (vitamin D3) 1,250 1,250 mcg PO WEEKLY 01/18/21 09/06/21 mcg (50,000 unit) capsule Doxazosin Mesylate [Cardura 4mg 2 mg PO BID 01/29/21 09/06/21 Tab] Trazodone HCl 50 mg PO HS 03/08/21 09/06/21 Budesonide/Formoterol Fumarate 2 puff IH BID 04/02/21 09/06/21 [Budesonide-Formoterol 160-4.5] metformin 500 mg tablet 500 mg PO DAILY tab 06/08/21 09/06/21 Flash Glucose Sensor [Freestyle See Rx Instructions .ROUTE TID 07/07/21 09/06/21 Bessy 2 Sensor] Gabapentin 800 mg PO TID 07/07/21 09/06/21 Previous Rx's Medication Instructions Recorded albuterol sulfate 90 mcg/actuation 2 puff INHALATION Q4-6H PRN #8.5 g 03/25/21 aerosol inhaler cyclobenzaprine 10 mg tablet 10 mg PO BID PRN #30 tab 04/19/21 lidocaine HCl 2 % mucosal solution 10 ml MUCOUS MEM BID PRN #100 ml 06/07/21 carvedilol 25 mg tablet 25 mg PO BID #180 tab 06/21/21 torsemide 20 mg tablet 40 mg PO DAILY #60 tab 07/05/21 insulin lispro 100 unit/mL See Rx Instructions .ROUTE 08/02/21 subcutaneous pen .COMPLEX #15 ml lorazepam 1 mg tablet 1 mg PO BIDP PRN #60 tab 08/02/21 pramipexole 1.5 mg tablet 1.5 mg PO TID #90 tab 08/02/21 insulin glargine U-300 conc 300 100 unit SQ HS #6 ml 08/05/21 unit/mL (3 mL) subcutaneous pen pantoprazole 40 mg tablet,delayed 40 mg PO DAILY #90 tab 08/05/21 release buspirone 30 mg tablet See Rx Instructions .ROUTE 08/24/21 .COMPLEX #60 tablet quetiapine 300 mg tablet See Rx Instructions .ROUTE 08/24/21 .COMPLEX #30 tab duloxetine 60 mg capsule,delayed 60 mg PO BID #60 cap 08/26/21 release pota
[2021-09-29 06:32] VITALS: BP 151/94; PULSE 87; RESP 24; TEMP 36.9; O2SAT 98
== END 2021-09-29 06:33 | disposition home or self-care (01) ==
PROVIDERS: Emergency Provider Emergency Medicine; PCP Family Medicine
DX: I87.2 Venous insufficiency (chronic) (peripheral) (principal); I11.0 Hypertensive heart disease with heart failure; I50.9 Heart failure, unspecified; I73.9 Peripheral vascular disease, unspecified; I48.91 Unspecified atrial fibrillation; I25.10 Atherosclerotic heart disease of native coronary artery without angina pectoris; K21.9 Gastro-esophageal reflux disease without esophagitis; E78.5 Hyperlipidemia, unspecified; E11.9 Type 2 diabetes mellitus without complications; F32.A Depression, unspecified; F41.9 Anxiety disorder, unspecified; F17.290 Nicotine dependence, other tobacco product, uncomplicated; Z79.4 Long term (current) use of insulin; Z79.51 Long term (current) use of inhaled steroids; Z79.82 Long term (current) use of aspirin; Z79.84 Long term (current) use of oral hypoglycemic drugs; Z79.899 Other long term (current) drug therapy; Z88.8 Allergy status to other drugs, medicaments and biological substances; Z80.9 Family history of malignant neoplasm, unspecified
CPT/HCPCS: 99283

== ENCOUNTER 2021-10-03 14:50 | Emergency (ER) | payer MEDICARE, MEDICAID, SELFPAY ==
[2021-10-03 14:51] VITALS: BP 122/84; PULSE 67; RESP 16; TEMP 36.4; O2SAT 96; BMI 45.6
--- NOTE | 2021-10-03 14:59 | HMH.EDBACK ---
ED Disposition Clinical Impression: Venous stasis dermatitis of both lower extremities Disposition: Home, Self-Care Condition on Discharge: Fair Instructions: Venous Stasis Ulcer Additional Instructions: Follow-up with your primary care physician in about 3 to 4 days. Return to the emergency department if you develop a fever or worse symptoms in any way. Referrals: Bert Villagomez MD [Primary Care Provider] - - Critical Care Critical Care Time: No Attestation: On 10/03/21, the high probability of a clinically significant, sudden or life threatening deterioration of the following system(s) required my full and direct attention, intervention and personal management. The time I documented below is in addition to time spent performing reported procedures but includes the following listed in this critical care notation. Medical Decision Making - Fahad Inquiry Pt receiving controlled substance: No Vital Signs: 10/03/21 14:51 Temperature 97.6 F Temperature Source Oral Pulse Rate [Right] 67 Respiratory Rate 16 Blood Pressure [Right Arm] 122/84 Blood Pressure Mean [Right Arm] 96 Blood Pressure Source [Right Arm] Automatic Cuff Blood Pressure Position [Right Arm] Sitting 02 Sat by Pulse Oximetry 96 Oxygen Delivery Method Room Air - Lab Data Lab Results 10/03/21 15:04: POC Glucose 191 H Orders (Tests/Meds): ED MEDICATIONS Discontinued Medications Generic Name Dose Route Start Last Admin Trade Name Sarkisq PRN Reason Stop Dose Admin Ketorolac Tromethamine 60 mg 10/03/21 15:04 10/03/21 15:21 Ketorolac 60mg/2ml Vial IM 10/03/21 15:05 60 mg ONCE ONE Administration Medical Decision Narrative: Patient presents to the emergency department complaining of chronic pain for a chronic issue of skin changes in both lower extremities. There is no evidence of acute infection. Patient will be discharged in stable condition. Back Pain HPI - General Chief Complaint: Extremity Problem,Nontraumatic Stated Complaint: leg pain Time Seen by Provider: 10/03/21 14:59 Mode of Arrival: Wheelchair Source of Information: Patient, Relative Limitations: No Limitations - History of Present Illness HPI Narrative: Presents to the emergency department complaining of bilateral lower extremity pain that has been chronic in nature but is worse since yesterday. He denies any fevers, vomiting or chest pain or shortness of breath. MD Complaint: back pain Similar Symptoms Previously: Yes - Related Data Home Medications Medication Instructions Recorded Confirmed aspirin 81 mg tablet,delayed 81 mg PO DAILY tab 10/27/17 09/06/21 release cholecalciferol (vitamin D3) 1,250 1,250 mcg PO WEEKLY 01/18/21 09/06/21 mcg (50,000 unit) capsule Doxazosin Mesylate [Cardura 4mg 2 mg PO BID 01/29/21 09/06/21 Tab] Trazodone HCl 50 mg PO HS 03/08/21 09/06/21 Budesonide/Formoterol Fumarate 2 puff IH BID 04/02/21 09/06/21 [Budesonide-Formoterol 160-4.5] metformin 500 mg tablet 500 mg PO DAILY tab 06/08/21 09/06/21 Flash Glucose Sensor [Freestyle See Rx Instructions .ROUTE TID 07/07/21 09/06/21 Bessy 2 Sensor] Gabapentin 800 mg PO TID 07/07/21 09/06/21 Previous Rx's Medication Instructions Recorded albuterol sulfate 90 mcg/actuation 2 puff INHALATION Q4-6H PRN #8.5 g 03/25/21 aerosol inhaler cyclobenzaprine 10 mg tablet 10 mg PO BID PRN #30 tab 04/19/21 lidocaine HCl 2 % mucosal solution 10 ml MUCOUS MEM BID PRN #100 ml 06/07/21 carvedilol 25 mg tablet 25 mg PO BID #180 tab 06/21/21 torsemide 20 mg tablet 40 mg PO DAILY #60 tab 07/05/21 lorazepam 1 mg tablet 1 mg PO BIDP PRN #60 tab 08/02/21 pramipexole 1.5 mg tablet 1.5 mg PO TID #90 tab 08/02/21 insulin glargine U-300 conc 300 100 unit SQ HS #6 ml 08/05/21 unit/mL (3 mL) subcutaneous pen pantoprazole 40 mg tablet,delayed 40 mg PO DAILY #90 tab 08/05/21 release buspirone 30 mg tablet See Rx Instructions .ROUTE 08/24/21 .COMPLEX #60 tablet que
--- NOTE | 2021-10-03 15:11 | PC.NURSE ---
FSBS 191
[2021-10-03 15:12] LABS: POC Glucose,Bedside 191 (70-110)
[2021-10-03 15:39] VITALS: BP 134/79; PULSE 74; RESP 16; TEMP 36.8; O2SAT 98
== END 2021-10-03 15:48 | disposition home or self-care (01) ==
PROVIDERS: Emergency Provider Emergency Medicine; PCP Family Medicine
DX: I87.2 Venous insufficiency (chronic) (peripheral) (principal); I13.0 Hypertensive heart and chronic kidney disease with heart failure and stage 1 through stage 4 chronic kidney disease, or unspecified chronic kidney disease; I50.9 Heart failure, unspecified; N18.9 Chronic kidney disease, unspecified; I25.10 Atherosclerotic heart disease of native coronary artery without angina pectoris; I48.91 Unspecified atrial fibrillation; I73.9 Peripheral vascular disease, unspecified; K21.9 Gastro-esophageal reflux disease without esophagitis; R78.5 Finding of other psychotropic drug in blood; F32.A Depression, unspecified; F41.9 Anxiety disorder, unspecified; F17.290 Nicotine dependence, other tobacco product, uncomplicated; Z79.4 Long term (current) use of insulin; Z79.51 Long term (current) use of inhaled steroids; Z79.82 Long term (current) use of aspirin; Z79.84 Long term (current) use of oral hypoglycemic drugs; Z79.899 Other long term (current) drug therapy; Z88.8 Allergy status to other drugs, medicaments and biological substances; Z80.9 Family history of malignant neoplasm, unspecified
CPT/HCPCS: 82962; 96372; 99283

== ENCOUNTER 2021-10-05 15:14 | Emergency (ER) | payer MEDICARE, MEDICAID, SELFPAY ==
[2021-10-05 15:15] VITALS: BMI 45.6
--- NOTE | 2021-10-05 15:51 | HMH.EDEXTP ---
ED Disposition Clinical Impression: Venous stasis dermatitis of left lower extremity Disposition: Home, Self-Care Condition on Discharge: Good Instructions: DI for Edema Due to Venous Stasis, Skin Wound Additional Instructions: follow up wound care, return here for worse Prescriptions: Mupirocin [Bactroban 2% Ointment 22gm tube] 1 applicatio TP TID 10 Days #22 gm Transmission Status: Received by [facility] Hydrocodone/Acetaminophen [Hydrocodone-Acetamin 5-325 mg] 1 tab PO TID PRN 3 Days #9 tab PRN Reason: Moderate To Severe Pain Transmission Status: Received by [facility] Referrals: Bert Villagomez MD [Primary Care Provider] - - Critical Care Critical Care Time: No Attestation: On , the high probability of a clinically significant, sudden or life threatening deterioration of the following system(s) required my full and direct attention, intervention and personal management. The time I documented below is in addition to time spent performing reported procedures but includes the following listed in this critical care notation. Medical Decision Making - Medical Records Medical records reviewed: Yes: I reviewed the patient's medical records. - Fahad Inquiry Pt receiving controlled substance: Yes Fahad was queried for this patient: Yes Risks and benefits of using a controlled substance: were discussed with pt by me Vital Signs: 10/05/21 16:14 Temperature 98 F Temperature Source Oral Pulse Rate 74 Respiratory Rate 16 Blood Pressure 132/74 Blood Pressure Position Sitting Oxygen Delivery Method Room Air Orders (Tests/Meds): ED MEDICATIONS Discontinued Medications Generic Name Dose Route Start Last Admin Trade Name Freq PRN Reason Stop Dose Admin Hydrocodone Bitart/Acetaminophen 1 tab 10/05/21 15:50 10/05/21 16:13 Hydrocodone/Apap 5/325 Mg Tablet PO 10/05/21 15:51 1 tab ONCE ONE Administration Mupirocin 0.5 gm 10/05/21 15:50 10/05/21 16:13 Mupirocin 2% Ointment 22gm Tube TP 10/05/21 15:51 1 applicatio ONCE ONE Administration Extremity Problem HPI - General Stated complaint: open wouned L foot, diabetic Time Seen by Provider: 10/05/21 15:51 - History of Present Illness HPI Narrative: c/o left leg areas cracked skin causing pain and can't get into wound care until next month h/o chronic margarita le venous insufficiancy and skin changes with dryness and swelling Complaint: extremity pain Onset (ago): month(s) Consistency: constant Location: left Quality: burning, sharp Relieving factors: nothing Exacerbating factors: nothing Associated symptoms: denies other symptoms - Related Data Home Medications Medication Instructions Recorded Confirmed aspirin 81 mg tablet,delayed 81 mg PO DAILY tab 10/27/17 09/06/21 release cholecalciferol (vitamin D3) 1,250 1,250 mcg PO WEEKLY 01/18/21 09/06/21 mcg (50,000 unit) capsule Doxazosin Mesylate [Cardura 4mg 2 mg PO BID 01/29/21 09/06/21 Tab] Trazodone HCl 50 mg PO HS 03/08/21 09/06/21 Budesonide/Formoterol Fumarate 2 puff IH BID 04/02/21 09/06/21 [Budesonide-Formoterol 160-4.5] metformin 500 mg tablet 500 mg PO DAILY tab 06/08/21 09/06/21 Flash Glucose Sensor [Freestyle See Rx Instructions .ROUTE TID 07/07/21 09/06/21 Bessy 2 Sensor] Gabapentin 800 mg PO TID 07/07/21 09/06/21 Previous Rx's Medication Instructions Recorded albuterol sulfate 90 mcg/actuation 2 puff INHALATION Q4-6H PRN #8.5 g 03/25/21 aerosol inhaler cyclobenzaprine 10 mg tablet 10 mg PO BID PRN #30 tab 04/19/21 lidocaine HCl 2 % mucosal solution 10 ml MUCOUS MEM BID PRN #100 ml 06/07/21 carvedilol 25 mg tablet 25 mg PO BID #180 tab 06/21/21 torsemide 20 mg tablet 40 mg PO DAILY #60 tab 07/05/21 lorazepam 1 mg tablet 1 mg PO BIDP PRN #60 tab 08/02/21 pramipexole 1.5 mg tablet 1.5 mg PO TID #90 tab 08/02/21 insulin glargine U-300 conc 300 100 unit SQ HS #6 ml 08/05/21 unit/mL (3 mL) subcutaneous pen
[2021-10-05 16:14] VITALS: BP 132/74; PULSE 74; RESP 16; TEMP 36.6; O2SAT 98
--- NOTE | 2021-10-05 16:14 | PC.NURSE ---
DRESSING TO LT LOWER LEG REAPPLIED
== END 2021-10-05 16:19 | disposition home or self-care (01) ==
LOC: ER 16:18
PROVIDERS: Emergency Provider Emergency Medicine; PCP Family Medicine
DX: I87.2 Venous insufficiency (chronic) (peripheral) (principal); M79.662 Pain in left lower leg; I48.0 Paroxysmal atrial fibrillation; I10 Essential (primary) hypertension; F41.8 Other specified anxiety disorders; K21.9 Gastro-esophageal reflux disease without esophagitis; F17.290 Nicotine dependence, other tobacco product, uncomplicated; E11.9 Type 2 diabetes mellitus without complications
CPT/HCPCS: 99283

== ENCOUNTER 2021-11-11 14:17 | Emergency (ER) | payer MEDICARE, MEDICAID, SELFPAY ==
[2021-11-11 14:18] VITALS: BP 160/72; PULSE 116; RESP 20; TEMP 37.1; O2SAT 94; BMI 45.6
--- NOTE | 2021-11-11 14:25 | ECG_ITS ---
APPROVED REPORT Exam: Resting ECG HR:116 bpm ECG Measurements Heart Rate 116 AXES KS 152 P 63 QRSd 111 QRS 7 QT 339 T 65 QTc 408 Conclusion SINUS TACHYCARDIA LEFT ATRIAL ENLARGEMENT [-0.15mV P-WAVE IN V1/V2] MODERATE INTRAVENTRICULAR CONDUCTION DELAY [110+ ms QRS DURATION] ABNORMAL ECG UNCONFIRMED REPORT Electronically signed by : Cameron Kohli MD 11/13/2021 16:04:14
--- NOTE | 2021-11-11 14:27 | XR_ITS ---
FINAL REPORT CLINICAL HISTORY: soa COMPARISON: August 30, 2021 FINDINGS: SINGLE VIEW CHEST. The heart is normal in size. The mediastinum is unremarkable. There are bibasilar pulmonary opacities, favor scarring or atelectasis, similar to prior. There is no pneumothorax. IMPRESSION: Stable bibasilar pulmonary opacities, favor scarring or atelectasis. Reviewed, Interpreted and Dictated by De Velez III, MD Transcribed by Lamar Delgado Authenticated by De Velez III, MD on 11/11/2021 03:33:[address] [facility]
--- NOTE | 2021-11-11 14:28 | HMH.EDSOB ---
ED Disposition Clinical Impression: Peripheral edema Dyspnea Qualifiers: Dyspnea type: dyspnea on exertion Qualified Code(s): R06.00 - Dyspnea, unspecified Disposition: Home, Self-Care Condition on Discharge: Good Instructions: DI for Shortness of Breath, DI for Peripheral Edema -- Bilateral Additional Instructions: follow up your doctor and the lymphedema clinic Referrals: Star Mathis MD [Primary Care Provider] - - Critical Care Critical Care Time: No Attestation: On , the high probability of a clinically significant, sudden or life threatening deterioration of the following system(s) required my full and direct attention, intervention and personal management. The time I documented below is in addition to time spent performing reported procedures but includes the following listed in this critical care notation. Medical Decision Making - Medical Records Medical records reviewed: Yes: I reviewed the patient's medical records. - Fahad Inquiry Pt receiving controlled substance: No Vital Signs: 11/11/21 14:18 11/11/21 14:31 11/11/21 14:35 Temperature 98.8 F Temperature Source Oral Pulse Rate 110 H 20 L Pulse Rate [Right Radial] 116 H Respiratory Rate 20 20 19 Blood Pressure 120/72 120/72 Blood Pressure [Right Arm] 160/72 H Blood Pressure Mean 81 Blood Pressure Mean [Right Arm] 101 Blood Pressure Source Automatic Cuff Blood Pressure Source [Right Arm] Automatic Cuff Blood Pressure Position Sitting Blood Pressure Position [Right Arm] Sitting 02 Sat by Pulse Oximetry 94 L 94 L 95 Oxygen Delivery Method Room Air Room Air Room Air 11/11/21 15:01 11/11/21 15:58 Temperature Temperature Source Pulse Rate 112 H 113 H Pulse Rate [Right Radial] Respiratory Rate 18 Blood Pressure 133/69 144/77 H Blood Pressure [Right Arm] Blood Pressure Mean 90 99 Blood Pressure Mean [Right Arm] Blood Pressure Source Blood Pressure Source [Right Arm] Blood Pressure Position Blood Pressure Position [Right Arm] 02 Sat by Pulse Oximetry 93 L 94 L Oxygen Delivery Method Room Air - Lab Data Lab Results 11/11/21 14:30: WBC 9.1, RBC 4.82, Hgb 10.8 L, Hct 33.7 L, MCV 69.9 L, MCH 22.5 L, MCHC 32.2, RDW 18.1 H, Plt Count 451 H, MPV 8.5, Neut % (Auto) 69.0, Lymph % (Auto) 17.9, [place] % (Auto) 7.3, Eos % (Auto) 4.8, Baso % (Auto) 1.0, Neut # (Auto) 6.3, Lymph # (Auto) 1.6, [place] # (Auto) 0.7, Eos # (Auto) 0.4, Baso # (Auto) 0.1 11/11/21 14:30: Sodium 137, Potassium 3.0 L, Chloride 98, Carbon Dioxide 29, Anion Gap 13.0, BUN 27 H, Creatinine 1.50 H, Estimated Creat Clear 57, Estimated GFR 50 L, Est GFR ( Amer) 60, Glucose 289 H, Calcium 8.0 L, Total Bilirubin < 0.1 L, AST 39, ALT 37, Alkaline Phosphatase 217 H, Total Protein 6.8, Albumin 3.4 L, Globulin 3.4 H, Albumin/Globulin Ratio 1.0 L 11/11/21 14:30: Troponin I < 0.01, NT-Pro-B Natriuret Pep 29.6 11/11/21 14:30: D-Dimer 0.75 H Result diagrams: 11/11/21 14:30 11/11/21 14:30 Orders (Tests/Meds): ED MEDICATIONS Discontinued Medications Generic Name Dose Route Start Last Admin Trade Name Freq PRN Reason Stop Dose Admin Furosemide 80 mg 11/11/21 14:27 11/11/21 14:37 Furosemide 40mg/4ml Vial IV 11/11/21 14:28 80 mg ONCE ONE Administration Iopamidol 70 ml 11/11/21 15:37 11/11/21 15:40 Iopamidol-370 (76%);100ml Bottle IV 11/11/21 15:38 70 ml ONCE ONE Administration Potassium Chloride 40 meq 11/11/21 15:09 11/11/21 15:23 Potassium Chloride 20meq Tab PO 11/11/21 15:10 40 meq ONCE ONE Administration Sodium Chloride 10 ml 11/11/21 15:37 11/11/21 15:40 Sodium Chloride 0.9% 10ml Syr (Rad Only) IV 11/11/21 15:38 10 ml ONCE ONE Administration Sodium Chloride 50 ml 11/11/21 15:39 11/11/21 15:40 0.9 % Sodium Chloride 50 Ml Vial IV 11/11/21 15:40 50 ml ONCE ONE Administration ORDERS Category Date Time Status Troponin I Q3H Lab 11/11/21 17:30 Ordered Troponin
[2021-11-11 14:31] VITALS: BP 120/72; PULSE 110; RESP 20; O2SAT 94
[2021-11-11 14:35] VITALS: BP 120/72; PULSE 20; RESP 19; O2SAT 95
[2021-11-11 14:40] LABS: Basophils # 0.1 K/mm3 (0-0.2); Eosinophils # 0.4 K/mm3 (0.0-0.4); Eosinophils % 4.8 % (0.1-12.0); Hematocrit 33.7 % (42.0-52.0); Hemoglobin 10.8 g/dL (14.1-18.0); Lymphocytes # 1.6 K/mm3 (0.7-4.5); Lymphocytes % 17.9 % (10-50); Mean Corpuscular HGB Conc 32.2 g/dL (31.8-35.4); Mean Corpuscular Hemoglobin 22.5 pg (27.0-31.2); Mean Corpuscular Volume 69.9 fl (80-94); Mean Platelet Volume 8.5 fl (7.4-10.4); Monocytes # 0.7 K/mm3 (0.1-1.0); Monocytes % 7.3 % (1.7-9.3); Neutrophils # 6.3 K/mm3 (1.8-7.8); Platelet Count 451 K/mm3 (142-424); Red Blood Count 4.82 M/mm3 (4.60-6.20); Red Cell Distribution Width 18.1 % (11.5-17.5); White Blood Count 9.1 K/mm3 (4.8-10.8)
[2021-11-11 14:49] LABS: Alanine Aminotransferase 37 U/L (12-78); Albumin Level 3.4 g/dl (3.5-5.0); Alkaline Phosphatase 217 U/L (38-126); Aspartate Amino Transferase 39 U/L (17-59); Blood Urea Nitrogen 27 mg/dl (9-20); Carbon Dioxide 29 mmol/L (22.0-30.0); Chloride 98 mmol/L (98-107); Creatinine Clearance Estimated 57 mL/min (50-200); Estimated Glomerular Filt Rate 50 ml/min (>60); GFR (African American) 60 ML/MIN (>60); Globulin 3.4 g/dL (1.3-3.2); Glucose 289 mg/dl (74-100); Sodium 137 mmol/L (136-145); Total Protein,Serum 6.8 g/dl (6.3-8.2)
[2021-11-11 14:54] LABS: D-Dimer 0.75 ug/mL (0.0-0.5)
[2021-11-11 15:01] VITALS: BP 133/69; PULSE 112; O2SAT 93
[2021-11-11 15:07] LABS: Bilirubin,Total < 0.1 mg/dl (0.2-1.3)
--- NOTE | 2021-11-11 15:09 | PC.NURSE ---
lab called with potassium of 3.0 MD aware
--- NOTE | 2021-11-11 15:10 | CT_ITS ---
FINAL REPORT TECHNIQUE: Then section axial CT images of the chest were obtained with contrast. Three-D reformatted images were also obtained.This study was performed with techniques to keep radiation doses as low as reasonably achievable (ALARA). Individualized dose reduction techniques using automated exposure control or adjustment of mA and/or kV according to the patient''s size were employed. CLINICAL HISTORY: soa, tachy, elev ddimer large pt, pt would not keep arm straight during contrast, best possible FINDINGS: There is motion artifact. There is no large or central pulmonary embolism. The smaller branches are obscured by motion. There is no evidence of thoracic aortic aneurysm or dissection. There is no evidence of mediastinal or hilar mass or adenopathy. There is no evidence of pulmonary mass or suspicious nodule. There is mild atelectasis in the left lung. Limited images of the upper abdomen are unremarkable. IMPRESSION: Motion artifact. No large or central pulmonary embolism. Reviewed, Interpreted and Dictated by De Velez III, MD Transcribed by Guy Wolff Authenticated by De Velez III, MD on 11/11/2021 04:36:56 PM [facility]
[2021-11-11 15:45] LABS: NT Pro Brain Natriuretic Pep. 29.6 pg/mL (0-125)
[2021-11-11 15:58] VITALS: BP 144/77; PULSE 113; RESP 18; O2SAT 94
[2021-11-11 16:04] LABS: Troponin I < 0.01 ng/ml (0.00-0.034)
[2021-11-11 17:26] VITALS: BP 135/71; PULSE 105; RESP 18; TEMP 36.7; O2SAT 95
== END 2021-11-11 17:27 | disposition home or self-care (01) ==
PROVIDERS: Emergency Provider Emergency Medicine; PCP Emergency Medicine
DX: R06.02 Shortness of breath (principal); R60.9 Edema, unspecified; I11.0 Hypertensive heart disease with heart failure; I50.9 Heart failure, unspecified; N28.9 Disorder of kidney and ureter, unspecified; I48.91 Unspecified atrial fibrillation; I73.9 Peripheral vascular disease, unspecified; I25.10 Atherosclerotic heart disease of native coronary artery without angina pectoris; E78.5 Hyperlipidemia, unspecified; K21.9 Gastro-esophageal reflux disease without esophagitis; E11.9 Type 2 diabetes mellitus without complications; Q24.9 Congenital malformation of heart, unspecified; F17.290 Nicotine dependence, other tobacco product, uncomplicated; Z79.4 Long term (current) use of insulin; Z79.51 Long term (current) use of inhaled steroids; Z79.82 Long term (current) use of aspirin; Z79.84 Long term (current) use of oral hypoglycemic drugs; Z79.899 Other long term (current) drug therapy; Z88.8 Allergy status to other drugs, medicaments and biological substances; Z80.9 Family history of malignant neoplasm, unspecified
CPT/HCPCS: 71045; 71275; 80053; 83880; 84484; 85025; 85378; 93005; 96374; 99285; Q9967

== ENCOUNTER 2021-11-16 11:07 | Emergency (ER) | payer MEDICARE, MEDICAID, SELFPAY ==
[2021-11-16] VITALS (7 sets, daily range): BP systolic 150–212; BP diastolic 83–102; PULSE 83–88; RESP 22–25; TEMP 36.5–36.6; O2SAT 97–100; BMI 45.6
--- NOTE | 2021-11-16 11:12 | HMH.EDSOB ---
ED Disposition Clinical Impression: Bronchitis, Uncontrolled hypertension Disposition: Home, Self-Care Condition on Discharge: Good Additional Instructions: follow up PCP next week, return here for worse Prescriptions: Albuterol Sulfate [Albuterol Sulfate 2.5mg/0.5ml Neb] 2.5 mg IH Q4-6H PRN #30 ml PRN Reason: Shortness Of Breath Or Wheezing Transmission Status: Pending to [facility] Albuterol Sulfate [Albuterol Sulfate Hfa] 8.5 gm IH Q4-6H PRN #1 each PRN Reason: Wheezing Transmission Status: Pending to Clinic [facility] Doxycycline Hyclate [Doxycycline Hyclate 100mg Tablet] 100 mg PO BID #20 tab Transmission Status: Pending to [facility] Referrals: Bert Villagomez MD [Primary Care Provider] - - Critical Care Critical Care Time: No Attestation: On , the high probability of a clinically significant, sudden or life threatening deterioration of the following system(s) required my full and direct attention, intervention and personal management. The time I documented below is in addition to time spent performing reported procedures but includes the following listed in this critical care notation. Medical Decision Making - Medical Records Medical records reviewed: Yes: I reviewed the patient's medical records. - Fahad Inquiry Pt receiving controlled substance: No Vital Signs: 11/16/21 11:12 11/16/21 11:24 11/16/21 11:48 Temperature 97.7 F Temperature Source Oral Pulse Rate 87 Pulse Rate [Radial] 88 Respiratory Rate 25 H Blood Pressure 153/83 H Blood Pressure [Right Arm] 212/102 H Blood Pressure Mean [Right Arm] 138 02 Sat by Pulse Oximetry 100 Oxygen Delivery Method Room Air 11/16/21 11:53 Temperature Temperature Source Pulse Rate 85 Pulse Rate [Radial] Respiratory Rate 22 Blood Pressure 156/83 H Blood Pressure [Right Arm] Blood Pressure Mean [Right Arm] 02 Sat by Pulse Oximetry 98 Oxygen Delivery Method Room Air - Lab Data Lab Results 11/16/21 11:20: WBC 9.2, RBC 5.12, Hgb 11.3 L, Hct 35.4 L, MCV 69.2 L, MCH 22.1 L, MCHC 31.9, RDW 18.1 H, Plt Count 467 H, MPV 7.8, Neut % (Auto) 72.9, Lymph % (Auto) 15.5, [place] % (Auto) 6.5, Eos % (Auto) 3.4, Baso % (Auto) 1.6, Neut # (Auto) 6.7, Lymph # (Auto) 1.4, [place] # (Auto) 0.6, Eos # (Auto) 0.3, Baso # (Auto) 0.2 11/16/21 11:20: Sodium 137, Potassium 3.4 L, Chloride 95 L, Carbon Dioxide 36 H, Anion Gap 9.4, BUN 14, Creatinine 1.10, Estimated Creat Clear 78, Estimated GFR 71, Est GFR ( Amer) 86, Glucose 318 H, Calcium 9.0, Total Bilirubin 0.4, AST 75 H, ALT 63, Alkaline Phosphatase 222 H, Troponin I < 0.01, NT-Pro-B Natriuret Pep 98.4, Total Protein 7.7, Albumin 3.9, Globulin 3.8 H, Albumin/Globulin Ratio 1.0 L 11/16/21 11:23: SARS-CoV-2 (PCR) Not detected, Influenza A Untype (PCR) Not detected, Influenza Type B (PCR) Not detected Result diagrams: 11/16/21 11:20 11/16/21 11:20 Orders (Tests/Meds): ED MEDICATIONS Discontinued Medications Generic Name Dose Route Start Last Admin Trade Name Sarkisq PRN Reason Stop Dose Admin Albuterol/Ipratropium 6 ml 11/16/21 11:16 11/16/21 11:25 Ipratropium/Albuterol 3 Ml Neb IH 11/16/21 11:17 6 ml ONCE ONE Administration Furosemide 40 mg 11/16/21 11:24 11/16/21 11:35 Furosemide 40mg/4ml Vial IV 11/16/21 11:25 40 mg ONCE ONE Administration Labetalol HCl 10 mg 11/16/21 11:18 11/16/21 11:24 Labetalol 5mg/Ml 20ml Mdv IV 11/16/21 11:19 Not Given ONCE ONE Methylprednisolone Sodium Succinate 125 mg 11/16/21 11:16 11/16/21 11:35 Methylprednisolone Sod Succ 125mg Vial IV 11/16/21 11:17 125 mg ONCE ONE Administration Nitroglycerin 2 gm 11/16/21 11:16 11/16/21 11:35 Nitroglycerin 1 Gm Ointment TD 11/16/21 11:17 1 gm ONCE ONE Administration Nitroglycerin 1 gm 11/16/21 11:27 11/16/21 11:36 Nitroglycerin 1 Gm Ointment TD 11/16/21 11:28 Not Given ONCE ONE ORDERS Category Date Time Status Trop
--- NOTE | 2021-11-16 11:16 | XR_ITS ---
FINAL REPORT CLINICAL HISTORY: soa COMPARISON: 11/11/2021 FINDINGS: A single PA view of the chest was obtained. The cardiac and mediastinal silhouettes are within normal limits. There are patchy bibasilar opacities, could represent atelectasis or pneumonia. There is no effusion or pneumothorax. No acute osseous abnormality is identified. IMPRESSION: Bibasilar opacities, could represent atelectasis or pneumonia. Reviewed, Interpreted and Dictated by Mary Henao MD Transcribed by María Elena Be Authenticated by Mary Henao MD on 11/16/2021 11:49:[address] [facility]
--- NOTE | 2021-11-16 11:16 | ECG_ITS ---
APPROVED REPORT Exam: Resting ECG HR:85 bpm ECG Measurements Heart Rate 85 AXES [place] 158 P 48 QRSd 109 QRS 6 QT 381 T 48 QTc 423 Conclusion SINUS RHYTHM NORMAL ECG UNCONFIRMED REPORT Electronically signed by : Cameron Kohli MD 11/19/2021 10:34:36
--- NOTE | 2021-11-16 11:21 | PC.NURSE ---
notified RT of neb treatment order, spoke with Jeanne
--- NOTE | 2021-11-16 11:21 | PC.NURSE ---
notified rad of cxr order, spoke with álvaro.
--- NOTE | 2021-11-16 11:23 | PC.NURSE ---
rad at BS
[2021-11-16 11:31] LABS: Coronavirus 19, PCR Not Detected (NotDetected); Influenza A, PCR Not Detected (NotDetected); Influenza B, PCR Not Detected (NotDetected)
[2021-11-16 11:34] LABS: Chloride 95 mmol/L (98-107); Sodium 137 mmol/L (136-145)
--- NOTE | 2021-11-16 11:34 | PC.NURSE ---
RT at BS
[2021-11-16 11:35] LABS: Basophils # 0.2 K/mm3 (0-0.2); Basophils % 1.6 % (0.1-2.0); Eosinophils # 0.3 K/mm3 (0.0-0.4); Eosinophils % 3.4 % (0.1-12.0); Hematocrit 35.4 % (42.0-52.0); Hemoglobin 11.3 g/dL (14.1-18.0); Lymphocytes # 1.4 K/mm3 (0.7-4.5); Lymphocytes % 15.5 % (10-50); Mean Corpuscular HGB Conc 31.9 g/dL (31.8-35.4); Mean Corpuscular Hemoglobin 22.1 pg (27.0-31.2); Mean Corpuscular Volume 69.2 fl (80-94); Mean Platelet Volume 7.8 fl (7.4-10.4); Monocytes # 0.6 K/mm3 (0.1-1.0); Monocytes % 6.5 % (1.7-9.3); Neutrophils # 6.7 K/mm3 (1.8-7.8); Neutrophils % 72.9 % (37.0-80.0); Platelet Count 467 K/mm3 (142-424); Potassium 3.4 mmoL/L (3.5-5.1); Red Blood Count 5.12 M/mm3 (4.60-6.20); Red Cell Distribution Width 18.1 % (11.5-17.5); White Blood Count 9.2 K/mm3 (4.8-10.8)
[2021-11-16 11:37] LABS: Alanine Aminotransferase 63 U/L (12-78); Alkaline Phosphatase 222 U/L (38-126); Anion Gap 9.4 mEq/L (5-15); Aspartate Amino Transferase 75 U/L (17-59); Bilirubin,Total 0.4 mg/dl (0.2-1.3); Blood Urea Nitrogen 14 mg/dl (9-20); Carbon Dioxide 36 mmol/L (22.0-30.0); Creatinine Clearance Estimated 78 mL/min (50-200); Estimated Glomerular Filt Rate 71 ml/min (>60); GFR (African American) 86 ML/MIN (>60)
[2021-11-16 11:38] LABS: Albumin Level 3.9 g/dl (3.5-5.0); Globulin 3.8 g/dL (1.3-3.2); Glucose 318 mg/dl (74-100); Total Protein,Serum 7.7 g/dl (6.3-8.2)
[2021-11-16 11:52] LABS: NT Pro Brain Natriuretic Pep. 98.4 pg/mL (0-125)
[2021-11-16 11:57] LABS: Troponin I < 0.01 ng/ml (0.00-0.034)
== END 2021-11-16 12:42 | disposition home or self-care (01) ==
PROVIDERS: Emergency Provider Emergency Medicine; PCP Family Medicine
DX: J40 Bronchitis, not specified as acute or chronic (principal); I10 Essential (primary) hypertension; I25.10 Atherosclerotic heart disease of native coronary artery without angina pectoris; E11.9 Type 2 diabetes mellitus without complications; E78.5 Hyperlipidemia, unspecified; I48.91 Unspecified atrial fibrillation; I73.9 Peripheral vascular disease, unspecified; N28.9 Disorder of kidney and ureter, unspecified; F41.9 Anxiety disorder, unspecified; F32.A Depression, unspecified; Z72.0 Tobacco use; Z72.89 Other problems related to lifestyle
CPT/HCPCS: 71045; 80053; 83880; 84484; 85025; 94640; 96374; 96375; 99284; C9803; U0003; U0005

== ENCOUNTER 2021-11-18 20:24 | Emergency (ER) | payer MEDICARE, MEDICAID, SELFPAY ==
[2021-11-18] VITALS (10 sets, daily range): BP systolic 81–134; BP diastolic 31–96; PULSE 70–89; RESP 12–18; TEMP 36.5; O2SAT 92–96; BMI 45.6
--- NOTE | 2021-11-18 20:34 | XR_ITS ---
PROCEDURE INFORMATION: Exam: XR Chest Exam date and time: 11/18/2021 8:47 PM Age: 51 years old Clinical indication: Other: Weakness; Additional info: Cynthia TECHNIQUE: Imaging protocol: XR of the chest. Views: 1 view. COMPARISON: CR XR CHEST PORTABLE 11/16/2021 11:21 AM FINDINGS: Lungs: Diffuse interstitial coarsening which is similar to prior examination. No lobar consolidation. Pleural spaces: No pneumothorax. Heart/Mediastinum: Prominent cardiac silhouette. Bones/joints: Degenerative changes of the shoulders. IMPRESSION: Diffuse interstitial coarsening which is similar to prior examination.
--- NOTE | 2021-11-18 20:45 | ECG_ITS ---
APPROVED REPORT Exam: Resting ECG HR:78 bpm ECG Measurements Heart Rate 78 AXES [place] 158 P 39 QRSd 113 QRS 11 QT 411 T 41 QTc 444 Conclusion SINUS RHYTHM Isolated Q in iii. O/w nl ecg UNCONFIRMED REPORT Electronically signed by : Cameron Kohli MD 11/19/2021 10:31:04
[2021-11-18 20:56] LABS: Basophils # 0.1 K/mm3 (0-0.2); Basophils % 1.2 % (0.1-2.0); Eosinophils # 0.3 K/mm3 (0.0-0.4); Eosinophils % 3.8 % (0.1-12.0); Hematocrit 33.7 % (42.0-52.0); Hemoglobin 10.1 g/dL (14.1-18.0); Lymphocytes # 1.6 K/mm3 (0.7-4.5); Lymphocytes % 19.6 % (10-50); Mean Corpuscular HGB Conc 30.1 g/dL (31.8-35.4); Mean Corpuscular Hemoglobin 21.4 pg (27.0-31.2); Mean Platelet Volume 8.1 fl (7.4-10.4); Monocytes # 0.5 K/mm3 (0.1-1.0); Monocytes % 5.8 % (1.7-9.3); Neutrophils # 5.8 K/mm3 (1.8-7.8); Neutrophils % 69.6 % (37.0-80.0); Platelet Count 416 K/mm3 (142-424); Red Blood Count 4.74 M/mm3 (4.60-6.20); Red Cell Distribution Width 17.8 % (11.5-17.5); White Blood Count 8.3 K/mm3 (4.8-10.8)
[2021-11-18 21:02] LABS: Alanine Aminotransferase 45 U/L (12-78); Albumin Level 3.1 g/dl (3.5-5.0); Alkaline Phosphatase 199 U/L (38-126); Anion Gap 10.5 mEq/L (5-15); Aspartate Amino Transferase 42 U/L (17-59); Blood Urea Nitrogen 24 mg/dl (9-20); Carbon Dioxide 32 mmol/L (22.0-30.0); Chloride 97 mmol/L (98-107); Creatinine Clearance Estimated 57 mL/min (50-200); Estimated Glomerular Filt Rate 50 ml/min (>60); GFR (African American) 60 ML/MIN (>60); Potassium 3.5 mmoL/L (3.5-5.1); Sodium 136 mmol/L (136-145); Total Protein,Serum 6.1 g/dl (6.3-8.2)
[2021-11-18 21:06] LABS: Bilirubin,Total < 0.1 mg/dl (0.2-1.3); C-Reactive Protein 2.4 mg/L (0-4)
[2021-11-18 21:08] LABS: Glucose 496 mg/dl (74-100)
--- NOTE | 2021-11-18 21:08 | PC.NURSE ---
Junie from lab called with critical bg of 496. [phone].
[2021-11-18 21:09] LABS: Lactic Acid 2.8 mmol/L (0.7-2.1)
[2021-11-18 21:16] LABS: NT Pro Brain Natriuretic Pep. 64.1 pg/mL (0-125); Troponin I < 0.01 ng/ml (0.00-0.034)
[2021-11-18 21:20] LABS: Procalcitonin 0.138 ng/mL (0.0-2.0)
[2021-11-18 21:49] LABS: Acetone, Serum (Rapid) None Detected (None Detect)
[2021-11-18 21:55] LABS: Erythrocyte Sedimentation Rate 70 mm/hr (0-15)
--- NOTE | 2021-11-18 22:29 | HMH.EDWEAK ---
ED Disposition Clinical Impression: Hyperglycemia due to diabetes mellitus Fall Qualifiers: Encounter type: initial encounter Qualified Code(s): W19.XXXA - Unspecified fall, initial encounter Contusion of shoulder Qualifiers: Encounter type: initial encounter Laterality: right Qualified Code(s): S40.011A - Contusion of right shoulder, initial encounter Hypotension Qualifiers: Hypotension type: unspecified hypotension type Qualified Code(s): I95.9 - Hypotension, unspecified Disposition: Home, Self-Care Condition on Discharge: Good Instructions: DI for Hypotension Additional Instructions: call pcp for follow up Referrals: Bert Villagomez MD [Primary Care Provider] - - Critical Care Critical Care Time: No Attestation: On 11/18/21, the high probability of a clinically significant, sudden or life threatening deterioration of the following system(s) required my full and direct attention, intervention and personal management. The time I documented below is in addition to time spent performing reported procedures but includes the following listed in this critical care notation. Medical Decision Making - Medical Records Medical records reviewed: Yes: I reviewed the patient's medical records. - Fahad Inquiry Pt receiving controlled substance: No Vital Signs: 11/18/21 20:25 11/18/21 20:30 11/18/21 20:48 Temperature 97.7 F Temperature Source Oral Pulse Rate Pulse Rate [Right] 70 Respiratory Rate 18 Blood Pressure 99/48 L 91/55 L Blood Pressure [Right Arm] 99/48 L Blood Pressure Mean 65 67 Blood Pressure Mean [Right Arm] 65 02 Sat by Pulse Oximetry 95 11/18/21 21:34 11/18/21 21:43 11/18/21 21:59 Temperature Temperature Source Pulse Rate 84 86 Pulse Rate [Right] Respiratory Rate 16 16 16 Blood Pressure 91/58 L 110/60 93/74 L Blood Pressure [Right Arm] Blood Pressure Mean 66 76 78 Blood Pressure Mean [Right Arm] 02 Sat by Pulse Oximetry 95 96 11/18/21 22:48 11/18/21 22:50 Temperature Temperature Source Pulse Rate 88 89 Pulse Rate [Right] Respiratory Rate 12 12 Blood Pressure 81/31 L 134/75 Blood Pressure [Right Arm] Blood Pressure Mean 47 87 Blood Pressure Mean [Right Arm] 02 Sat by Pulse Oximetry - Lab Data Lab results reviewed: Yes: I reviewed the patient's lab results. Lab Results 11/18/21 20:43: WBC 8.3, RBC 4.74, Hgb 10.1 L, Hct 33.7 L, MCV 71.0 L, MCH 21.4 L, MCHC 30.1 L, RDW 17.8 H, Plt Count 416, MPV 8.1, Neut % (Auto) 69.6, Lymph % (Auto) 19.6, [place] % (Auto) 5.8, Eos % (Auto) 3.8, Baso % (Auto) 1.2, Neut # (Auto) 5.8, Lymph # (Auto) 1.6, [place] # (Auto) 0.5, Eos # (Auto) 0.3, Baso # (Auto) 0.1, ESR 70 H 11/18/21 20:43: Sodium 136, Potassium 3.5, Chloride 97 L, Carbon Dioxide 32 H, Anion Gap 10.5, BUN 24 H D, Creatinine 1.50 H D, Estimated Creat Clear 57, Estimated GFR 50 L, Est GFR ( Amer) 60 D, Glucose 496 H*, Calcium 8.0 L, Total Bilirubin < 0.1 L, AST 42 D, ALT 45 D, Alkaline Phosphatase 199 H, Troponin I < 0.01, C-Reactive Protein 2.4, NT-Pro-B Natriuret Pep 64.1, Total Protein 6.1 L, Albumin 3.1 L, Globulin 3.0, Albumin/Globulin Ratio 1.0 L, Procalcitonin 0.138 11/18/21 20:43: Lactate 2.8 H 11/18/21 20:43: Acetone Level None detected 11/18/21 22:55: POC Glucose 454 H* Result diagrams: 11/18/21 20:43 11/18/21 20:43 Orders (Tests/Meds): ED MEDICATIONS Generic Name Dose Route Start Last Admin Trade Name Freq PRN Reason Stop Dose Admin Sodium Chloride 1,000 mls @ 999 mls/hr 11/18/21 21:30 11/18/21 21:20 Sod Chlor 0.9% 1000ml Bag IV 11/18/21 22:30 999 mls/hr .Q1H1M CARLIN Administration Discontinued Medications Generic Name Dose Route Start Last Admin Trade Name Freq PRN Reason Stop Dose Admin Insulin Human Regular 5 unit 11/18/21 21:08 11/18/21 21:10 Insulin Human Regular 100 Units/Ml 10ml Vial IVP 11/18/21 21:09 5 unit ONCE ONE Administration ORDERS Category Date Time Status
--- NOTE | 2021-11-18 22:50 | XR_ITS ---
PROCEDURE INFORMATION: Exam: XR Pelvis Exam date and time: 11/18/2021 11:03 PM Age: 51 years old Clinical indication: Injury or trauma; Fall; Blunt trauma (contusions or hematomas); Does not apply; Pelvic region TECHNIQUE: Imaging protocol: XR pelvis. Views: 1 or 2 view. COMPARISON: CR XR PELVIS 1-2V 05/25/2021 11:03 PM FINDINGS: Bones/joints: Unremarkable. No acute fracture. Soft tissues: Unremarkable. IMPRESSION: No acute findings.
--- NOTE | 2021-11-18 22:50 | XR_ITS ---
PROCEDURE INFORMATION: Exam: XR Right Shoulder Exam date and time: 11/18/2021 11:07 PM Age: 51 years old Clinical indication: Injury or trauma; Fall; Blunt trauma (contusions or hematomas); Shoulder; Right TECHNIQUE: Imaging protocol: XR Right shoulder. Views: 2 or more views. COMPARISON: CR XR SHOULDER RT MIN 2V 04/18/2021 2:34 PM FINDINGS: Bones/joints: Normal. Soft tissues: Normal. IMPRESSION: No acute findings.
--- NOTE | 2021-11-18 22:58 | PC.NURSE ---
Patient found laying on restroom floor. MD was made aware. Stated that his feet were numb and that was why he was in the floor. Complains of right shoulder pain. Ordered entered per MD request.
[2021-11-18 23:03] LABS: POC Glucose,Bedside 454 (70-110)
[2021-11-19 00:32] VITALS: BP 134/75; PULSE 89; RESP 18; TEMP 36.7; O2SAT 99
[2021-11-19 00:33] VITALS: BP 158/88; PULSE 79; O2SAT 96
== END 2021-11-19 00:38 | disposition home or self-care (01) ==
PROVIDERS: Emergency Provider Emergency Medicine; PCP Family Medicine
DX: E11.65 Type 2 diabetes mellitus with hyperglycemia (principal); S40.011A Contusion of right shoulder, initial encounter; I95.9 Hypotension, unspecified; R53.1 Weakness; M54.50 Low back pain, unspecified; E66.9 Obesity, unspecified; F17.210 Nicotine dependence, cigarettes, uncomplicated; Z79.4 Long term (current) use of insulin; Z79.51 Long term (current) use of inhaled steroids; Z79.52 Long term (current) use of systemic steroids; Z79.84 Long term (current) use of oral hypoglycemic drugs; Z79.899 Other long term (current) drug therapy; Z88.8 Allergy status to other drugs, medicaments and biological substances; Z68.42 Body mass index [BMI] 45.0-49.9, adult; W19.XXXA Unspecified fall, initial encounter
CPT/HCPCS: 71045; 72170; 73030; 80053; 82009; 82962; 83605; 83880; 84145; 84484; 85025; 85651; 86140; 87040; 93005; 99285

== ENCOUNTER 2021-11-19 09:43 | Emergency (ER) | payer MEDICARE, MEDICAID, SELFPAY ==
[2021-11-19 09:44] VITALS: BP 138/73; PULSE 81; RESP 21; TEMP 36.4; O2SAT 98; BMI 45.6
[2021-11-19 10:00] VITALS: BP 125/73; PULSE 81; O2SAT 97
--- NOTE | 2021-11-19 10:07 | HMH.EDGENADL ---
ED Disposition Clinical Impression: Generalized weakness Disposition: Home, Self-Care Condition on Discharge: Good Referrals: Bert Villagomez MD [Primary Care Provider] - - Critical Care Critical Care Time: No Attestation: On 11/19/21, the high probability of a clinically significant, sudden or life threatening deterioration of the following system(s) required my full and direct attention, intervention and personal management. The time I documented below is in addition to time spent performing reported procedures but includes the following listed in this critical care notation. Medical Decision Making - Fahad Inquiry Pt receiving controlled substance: No Vital Signs: 11/19/21 09:44 11/19/21 10:00 Temperature 97.5 F L Temperature Source Oral Pulse Rate 81 Pulse Rate [Left Radial] 81 Respiratory Rate 21 Blood Pressure 125/73 Blood Pressure [Right Arm] 138/73 Blood Pressure Mean 92 Blood Pressure Mean [Right Arm] 94 Blood Pressure Source [Right Arm] Automatic Cuff Blood Pressure Position [Right Arm] Sitting 02 Sat by Pulse Oximetry 98 97 Oxygen Delivery Method Room Air - Lab Data Lab Results 11/19/21 10:07: WBC 11.6 H D, RBC 5.59, Hgb 12.8 L D, Hct 39.4 L, MCV 70.4 L, MCH 22.9 L, MCHC 32.5, RDW 18.0 H, Plt Count 473 H, MPV 7.8, Neut % (Auto) 74.7, Lymph % (Auto) 13.4, [place] % (Auto) 6.9, Eos % (Auto) 3.8, Baso % (Auto) 1.1, Neut # (Auto) 8.7 H, Lymph # (Auto) 1.6, [place] # (Auto) 0.8, Eos # (Auto) 0.4, Baso # (Auto) 0.1 11/19/21 10:07: Sodium 141, Potassium 3.5, Chloride 97 L, Carbon Dioxide 33 H, Anion Gap 14.5, BUN 30 H, Creatinine 1.50 H, Estimated Creat Clear 57, Estimated GFR 50 L, Est GFR ( Amer) 60, Glucose 218 H D, Calcium 8.8, Total Bilirubin < 0.1 L, AST 45, ALT 53, Alkaline Phosphatase 256 H, Total Protein 8.4 H D, Albumin 4.2 D, Globulin 4.2 H, Albumin/Globulin Ratio 1.0 L 11/19/21 10:07: Lactate 1.1 11/19/21 10:14: POC Glucose 196 H 11/19/21 10:32: Urine Color Yellow, Urine Appearance Clear, Urine pH 5.5, Ur Specific [place] 1.020, Urine Protein 2+, Urine Glucose (UA) Trace, Urine Ketones Negative, Urine Blood Trace-i, Urine Nitrate Negative, Urine Bilirubin Negative, Urine Urobilinogen 0.2, Ur Leukocyte Esterase Negative, Urine RBC None, Urine WBC None, Ur Squamous Epith Cells None, Urine Bacteria Trace, Hyaline Casts 3-5 Result diagrams: 11/19/21 10:07 11/19/21 10:07 Medical Decision Narrative: DDx includes but not limited to sepsis, KATI, electrolyte abnormality. HDS, NAD, appears generally tired but no focal deficit on exam. Generalized weakness that is not focal. Alert and oriented x 3. Will obtain labs to further assess. labs reveal elevation across cell lines in cbc, may suggest hemoconcentration from recent fluid losses. bg upper 100s to low 200s here. creatinine stable since last night 1.5. ua without significant findings of uti. on reassessment, patient remains hds. bp stable throughout ed course. remains awake, alert, conversational, less tired appearing than initial, oriented x 4. nonfocal exam on reassessment. advised pt to f/u w/ pcp regarding fluid management as his frequent urination may predispose to dehydration contributing to feelings of tiredness and weakness. he understood and agreed and will f/u with pcp. given strict ed return precautions. General Adult HPI - General Chief complaint: Recheck/Abnormal Lab/Rx Stated complaint: low bp Time Seen by Provider: 11/19/21 09:55 Mode of Arrival: Ambulatory Limitations: No Limitations Description of Symptoms (Recalled from ER Triage Doc. by RN): c/o low bp at home this morning - History of Present Illness HPI narrative: 51-year-old male presents for evaluation of normal blood pressure. Patient states he measured his blood pressure this morning and it measured 87/31 . Patient states he has been feeling more weak and tired for the last 1 week. Denies other acute symptoms. Patient states he was seen for abnormal blood p
--- NOTE | 2021-11-19 10:21 | PC.NURSE ---
pt has urinal at for urine sample
[2021-11-19 10:26] LABS: POC Glucose,Bedside 196 (70-110)
[2021-11-19 10:27] LABS: Basophils # 0.1 K/mm3 (0-0.2); Basophils % 1.1 % (0.1-2.0); Eosinophils # 0.4 K/mm3 (0.0-0.4); Eosinophils % 3.8 % (0.1-12.0); Hematocrit 39.4 % (42.0-52.0); Lymphocytes # 1.6 K/mm3 (0.7-4.5); Lymphocytes % 13.4 % (10-50); Mean Corpuscular HGB Conc 32.5 g/dL (31.8-35.4); Mean Corpuscular Hemoglobin 22.9 pg (27.0-31.2); Mean Corpuscular Volume 70.4 fl (80-94); Mean Platelet Volume 7.8 fl (7.4-10.4); Monocytes # 0.8 K/mm3 (0.1-1.0); Monocytes % 6.9 % (1.7-9.3); Neutrophils # 8.7 K/mm3 (1.8-7.8); Neutrophils % 74.7 % (37.0-80.0); Platelet Count 473 K/mm3 (142-424); Red Blood Count 5.59 M/mm3 (4.60-6.20); White Blood Count 11.6 K/mm3 (4.8-10.8)
[2021-11-19 10:32] LABS: Hemoglobin 12.8 g/dL (14.1-18.0)
[2021-11-19 10:38] LABS: Microscopic, Urine URINE MICROSCOPIC (MICROSCOPIC)
[2021-11-19 10:39] LABS: Alanine Aminotransferase 53 U/L (12-78); Albumin Level 4.2 g/dl (3.5-5.0); Alkaline Phosphatase 256 U/L (38-126); Anion Gap 14.5 mEq/L (5-15); Aspartate Amino Transferase 45 U/L (17-59); Blood Urea Nitrogen 30 mg/dl (9-20); Calcium 8.8 mg/dl (8.4-10.2); Carbon Dioxide 33 mmol/L (22.0-30.0); Chloride 97 mmol/L (98-107); Creatinine Clearance Estimated 57 mL/min (50-200); Estimated Glomerular Filt Rate 50 ml/min (>60); GFR (African American) 60 ML/MIN (>60); Globulin 4.2 g/dL (1.3-3.2); Glucose 218 mg/dl (74-100); Potassium 3.5 mmoL/L (3.5-5.1); Sodium 141 mmol/L (136-145); Total Protein,Serum 8.4 g/dl (6.3-8.2)
[2021-11-19 10:39] LABS: Appearance,Urine CLEAR (Clear); Bilirubin,Urine Negative (Negative); Blood, Urine TRACE-I (Negative); Color,Urine YELLOW (Yellow); Glucose,Urine (UA) TRACE (Negative); Ketones,Urine Negative (Negative); Leukocyte Esterase,Urine Negative (Negative); Nitrate,Urine Negative (Negative); PH,Urine 5.5 (5.0-8.5); Protein,Urine 2+ (Negative); Urobilinogen,Urine 0.2 EU/dl (0.2)
[2021-11-19 10:40] LABS: Lactic Acid 1.1 mmol/L (0.7-2.1)
[2021-11-19 10:41] LABS: Bilirubin,Total < 0.1 mg/dl (0.2-1.3)
[2021-11-19 11:06] LABS: Bacteria,Urine Trace /lpf
[2021-11-19 11:15] VITALS: BP 121/73; PULSE 81; RESP 16; O2SAT 97
[2021-11-19 11:27] VITALS: BP 121/73; PULSE 81; RESP 16; TEMP 36.4; O2SAT 97
== END 2021-11-19 11:28 | disposition home or self-care (01) ==
PROVIDERS: Emergency Provider Student in an Organized Health Care Education/Training Program; PCP Family Medicine
DX: R53.1 Weakness (principal); Z79.82 Long term (current) use of aspirin; Z79.84 Long term (current) use of oral hypoglycemic drugs; Z79.4 Long term (current) use of insulin; Z88.8 Allergy status to other drugs, medicaments and biological substances; I48.91 Unspecified atrial fibrillation; I25.10 Atherosclerotic heart disease of native coronary artery without angina pectoris; E11.9 Type 2 diabetes mellitus without complications; K21.9 Gastro-esophageal reflux disease without esophagitis; E78.5 Hyperlipidemia, unspecified; I10 Essential (primary) hypertension; Z95.0 Presence of cardiac pacemaker; I73.9 Peripheral vascular disease, unspecified; N28.9 Disorder of kidney and ureter, unspecified
CPT/HCPCS: 80053; 81001; 82962; 83605; 85025; 99282

== ENCOUNTER 2021-11-23 09:36 | Emergency (ER) | payer MEDICARE, MEDICAID, SELFPAY ==
[2021-11-23] VITALS (7 sets, daily range): BP systolic 105–151; BP diastolic 60–79; PULSE 78–93; RESP 16–28; TEMP 36.6–36.9; O2SAT 94–98; BMI 45.6
--- NOTE | 2021-11-23 09:49 | XR_ITS ---
FINAL REPORT CLINICAL HISTORY: sob COMPARISON: November 18, 2021 FINDINGS: The heart size is normal. The mediastinum is within normal limits. There is partially improved pulmonary vascular congestion. There is no pleural effusion. There is no pneumothorax. The bony thorax is intact. IMPRESSION: Partially improved pulmonary vascular congestion. Reviewed, Interpreted and Dictated by De Velez III, MD Transcribed by Guy Wolff Authenticated by De Velez III, MD on 11/23/2021 10:37:49 AM [facility]
--- NOTE | 2021-11-23 09:59 | ECG_ITS ---
APPROVED REPORT Exam: Resting ECG HR:83 bpm ECG Measurements Heart Rate 83 AXES MD 159 P 50 QRSd 107 QRS 52 QT 355 T 46 QTc 395 Conclusion SINUS RHYTHM NORMAL ECG UNCONFIRMED REPORT Electronically signed by : Cameron Kohli MD 11/23/2021 21:11:44
--- NOTE | 2021-11-23 10:07 | HMH.EDGENADL ---
ED Disposition Clinical Impression: Hyperglycemia Disposition: Home, Self-Care Condition on Discharge: Good Instructions: DI for Hyperglycemia -- Adult Additional Instructions: Go to the pharmacy and obtain your insulin today and resume your usual insulin schedule. Check your blood sugar before each meal and in bed and record. Follow-up with your primary care provider tomorrow. Referrals: Bert Villagomez MD [Primary Care Provider] - - Critical Care Critical Care Time: No Attestation: On 11/23/21, the high probability of a clinically significant, sudden or life threatening deterioration of the following system(s) required my full and direct attention, intervention and personal management. The time I documented below is in addition to time spent performing reported procedures but includes the following listed in this critical care notation. Medical Decision Making - Fahad Inquiry Pt receiving controlled substance: No Vital Signs: 11/23/21 09:37 11/23/21 10:31 11/23/21 10:51 Temperature 98.4 F Temperature Source Oral Pulse Rate 93 H 91 H Pulse Rate [Radial] 91 H Respiratory Rate 28 H 20 Blood Pressure 105/60 L 151/79 H Blood Pressure [Right Arm] 124/63 Blood Pressure Mean 75 97 Blood Pressure Mean [Right Arm] 83 Blood Pressure Position [Right Arm] Sitting 02 Sat by Pulse Oximetry 94 L 97 95 Oxygen Delivery Method Room Air 11/23/21 11:01 Temperature Temperature Source Pulse Rate 87 Pulse Rate [Radial] Respiratory Rate Blood Pressure 134/64 Blood Pressure [Right Arm] Blood Pressure Mean 87 Blood Pressure Mean [Right Arm] Blood Pressure Position [Right Arm] 02 Sat by Pulse Oximetry 96 Oxygen Delivery Method - Lab Data Lab Results 11/23/21 10:00: WBC 7.0, RBC 4.66, Hgb 10.1 L, Hct 33.4 L, MCV 71.7 L, MCH 21.6 L, MCHC 30.1 L, RDW 18.0 H, Plt Count 357, MPV 7.4, Neut % (Auto) 71.0, Lymph % (Auto) 17.4, Esmeralda % (Auto) 6.1, Eos % (Auto) 4.6, Baso % (Auto) 0.9, Neut # (Auto) 5.0, Lymph # (Auto) 1.2, Esmeralda # (Auto) 0.4, Eos # (Auto) 0.3, Baso # (Auto) 0.1 11/23/21 10:00: Sodium 134 L, Potassium 4.5, Chloride 96 L, Carbon Dioxide 29, Anion Gap 13.5, BUN 41 H, Creatinine 1.50 H, Estimated Creat Clear 57, Estimated GFR 50 L, Est GFR ( Amer) 60, Glucose 564 H*, Calcium 8.5 11/23/21 10:00: Troponin I < 0.01, NT-Pro-B Natriuret Pep 38.9 11/23/21 11:44: POC Glucose 589 H* 11/23/21 12:00: Urine Color Straw, Urine Appearance Clear, Urine pH 6.0, Ur Specific [place] 1.020, Urine Protein 2+, Urine Glucose (UA) 3+, Urine Ketones Negative, Urine Blood Trace-i, Urine Nitrate Negative, Urine Bilirubin Negative, Urine Urobilinogen 0.2, Ur Leukocyte Esterase Negative, Urine RBC None, Urine WBC None, Ur Squamous Epith Cells Occasional, Urine Bacteria Trace 11/23/21 13:41: POC Glucose 460 H* Result diagrams: 11/23/21 10:00 11/23/21 10:00 Orders (Tests/Meds): ED MEDICATIONS Discontinued Medications Generic Name Dose Route Start Last Admin Trade Name Freq PRN Reason Stop Dose Admin Hydrocodone Bitart/Acetaminophen 1 tab 11/23/21 10:56 11/23/21 10:58 Apap/Hydrocodone 325mg/7.5mg Tab PO 11/23/21 10:57 1 tab ONCE ONE Administration Insulin Human Regular 10 unit 11/23/21 10:24 11/23/21 10:53 Insulin Human Regular 100 Units/Ml 10ml Vial IVP 11/23/21 10:25 10 unit ONCE ONE Administration Insulin Human Regular 10 unit 11/23/21 12:36 11/23/21 12:45 Insulin Human Regular 100 Units/Ml 10ml Vial IVP 11/23/21 12:37 10 unit ONCE ONE Administration Sodium Chloride 1,000 ml 11/23/21 10:24 11/23/21 10:52 Sodium Chloride 0.9% 1000ml Bag IV 11/23/21 10:25 1,000 ml BOLUS ONE Administration ORDERS Category Date Time Status Troponin I Q3H Lab 11/23/21 16:00 Ordered - Radiology Data #1 Image(s): Chest Image Reviewed: Yes I reviewed the patient's radiology image, Yes I have reviewed radiologist's interpretation Preliminary Findings: Norm
[2021-11-23 10:15] LABS: Basophils # 0.1 K/mm3 (0-0.2); Basophils % 0.9 % (0.1-2.0); Eosinophils # 0.3 K/mm3 (0.0-0.4); Eosinophils % 4.6 % (0.1-12.0); Hematocrit 33.4 % (42.0-52.0); Hemoglobin 10.1 g/dL (14.1-18.0); Lymphocytes # 1.2 K/mm3 (0.7-4.5); Lymphocytes % 17.4 % (10-50); Mean Corpuscular HGB Conc 30.1 g/dL (31.8-35.4); Mean Corpuscular Hemoglobin 21.6 pg (27.0-31.2); Mean Corpuscular Volume 71.7 fl (80-94); Mean Platelet Volume 7.4 fl (7.4-10.4); Monocytes # 0.4 K/mm3 (0.1-1.0); Monocytes % 6.1 % (1.7-9.3); Platelet Count 357 K/mm3 (142-424); Red Blood Count 4.66 M/mm3 (4.60-6.20)
--- NOTE | 2021-11-23 10:16 | PC.NURSE ---
ED MD at BS; family at BS
[2021-11-23 10:18] LABS: Anion Gap 13.5 mEq/L (5-15); Blood Urea Nitrogen 41 mg/dl (9-20); Calcium 8.5 mg/dl (8.4-10.2); Carbon Dioxide 29 mmol/L (22.0-30.0); Chloride 96 mmol/L (98-107); Creatinine Clearance Estimated 57 mL/min (50-200); Estimated Glomerular Filt Rate 50 ml/min (>60); GFR (African American) 60 ML/MIN (>60); Potassium 4.5 mmoL/L (3.5-5.1); Sodium 134 mmol/L (136-145)
[2021-11-23 10:19] LABS: Glucose 564 mg/dl (74-100)
[2021-11-23 10:30] LABS: NT Pro Brain Natriuretic Pep. 38.9 pg/mL (0-125)
[2021-11-23 10:31] LABS: Troponin I < 0.01 ng/ml (0.00-0.034)
--- NOTE | 2021-11-23 10:55 | PC.NURSE ---
PRINCESS Ring at
--- NOTE | 2021-11-23 11:13 | PC.NURSE ---
pt sitting up in wheelchair; family at BS
--- NOTE | 2021-11-23 11:25 | PC.NURSE ---
ED MD at speaking with patient
--- NOTE | 2021-11-23 11:47 | PC.NURSE ---
pt reports he is still unable to void at this time
[2021-11-23 11:52] LABS: POC Glucose,Bedside 589 (70-110)
[2021-11-23 12:11] LABS: Microscopic, Urine URINE MICROSCOPIC (MICROSCOPIC)
[2021-11-23 12:19] LABS: Appearance,Urine CLEAR (Clear); Bilirubin,Urine Negative (Negative); Blood, Urine TRACE-I (Negative); Color,Urine STRAW (Yellow); Glucose,Urine (UA) 3+ (Negative); Ketones,Urine Negative (Negative); Leukocyte Esterase,Urine Negative (Negative); Nitrate,Urine Negative (Negative); Protein,Urine 2+ (Negative); Urobilinogen,Urine 0.2 EU/dl (0.2)
[2021-11-23 12:36] LABS: Bacteria,Urine Trace /lpf; Squamous Epithelial Cell,Urine Occasional #/hpf (0-5)
--- NOTE | 2021-11-23 13:45 | PC.NURSE ---
re-checked finger stick at this time and it read 460 mg/dL
[2021-11-23 13:48] LABS: POC Glucose,Bedside 460 (70-110)
== END 2021-11-23 14:22 | disposition home or self-care (01) ==
PROVIDERS: Emergency Provider Emergency Medicine; PCP Family Medicine
DX: R06.02 Shortness of breath (principal); E11.65 Type 2 diabetes mellitus with hyperglycemia; Z79.4 Long term (current) use of insulin; Z79.899 Other long term (current) drug therapy; Z79.82 Long term (current) use of aspirin; Z88.8 Allergy status to other drugs, medicaments and biological substances; F41.9 Anxiety disorder, unspecified; I48.91 Unspecified atrial fibrillation; I25.10 Atherosclerotic heart disease of native coronary artery without angina pectoris; E78.5 Hyperlipidemia, unspecified; I11.0 Hypertensive heart disease with heart failure; I50.9 Heart failure, unspecified; Z95.0 Presence of cardiac pacemaker
CPT/HCPCS: 71045; 80048; 81001; 82962; 83880; 84484; 85025; 93005; 96375; 96376; 99284

== ENCOUNTER 2021-11-25 15:25 | Emergency (ER) | payer MEDICARE, MEDICAID, SELFPAY ==
--- NOTE | 2021-11-25 16:40 | PC.NURSE ---
Addendum entered by Thao Hill RN 11/25/21 16:53: no distress noted from pt. Original Note: checked on pt in lobby at this time, pt sitting in wheelchair, notified pt we will get him in a room as soon as one is available.
[2021-11-25 18:16] VITALS: BP 164/80; PULSE 89; RESP 17; TEMP 36.8; O2SAT 98; BMI 45.6
--- NOTE | 2021-11-25 18:24 | PC.NURSE ---
lab called for blood collection
--- NOTE | 2021-11-25 18:39 | HMH.EDGENADL ---
ED Disposition Clinical Impression: Dependent edema Disposition: Home, Self-Care Condition on Discharge: Good Instructions: DI for Edema Due to Venous Stasis Prescriptions: diphenhydrAMINE HCL [Benadryl Allergy] 25 mg PO BID #20 tab Transmission Status: Pending to [id number] Furosemide [Lasix 40mg tab] 40 mg PO DAILY #5 tab Transmission Status: Pending to [id number] Referrals: Bert Villagomez MD [Primary Care Provider] - - Critical Care Critical Care Time: No Attestation: On 11/25/21, the high probability of a clinically significant, sudden or life threatening deterioration of the following system(s) required my full and direct attention, intervention and personal management. The time I documented below is in addition to time spent performing reported procedures but includes the following listed in this critical care notation. Medical Decision Making - Medical Records Medical records reviewed: Yes: I reviewed the patient's medical records. - Fahad Inquiry Pt receiving controlled substance: No Vital Signs: 11/25/21 18:16 Temperature 98.3 F Temperature Source Oral Pulse Rate [Left Radial] 89 Respiratory Rate 17 Blood Pressure [Right Arm] 164/80 H Blood Pressure Mean [Right Arm] 108 02 Sat by Pulse Oximetry 98 Oxygen Delivery Method Room Air - Lab Data Lab Results 11/25/21 18:34: WBC 10.7 D, RBC 5.14, Hgb 11.2 L, Hct 34.9 L, MCV 67.9 L, MCH 21.8 L, MCHC 32.1, RDW 18.0 H, Plt Count 423, MPV 8.5, Neut % (Auto) 73.0, Lymph % (Auto) 15.3, [place] % (Auto) 6.6, Eos % (Auto) 4.1, Baso % (Auto) 1.0, Neut # (Auto) 7.8, Lymph # (Auto) 1.6, [place] # (Auto) 0.7, Eos # (Auto) 0.4, Baso # (Auto) 0.1 11/25/21 18:34: Sodium 139, Potassium 3.7, Chloride 99, Carbon Dioxide 33 H, Anion Gap 10.7, BUN 32 H, Creatinine 1.30 H, Estimated Creat Clear 66, Estimated GFR 58 L, Est GFR ( Amer) 71, Glucose 106 H, Calcium 9.4, Total Bilirubin 0.3, AST 40, ALT 28, Alkaline Phosphatase 193 H, NT-Pro-B Natriuret Pep 58.7, Total Protein 7.7, Albumin 3.9, Globulin 3.8 H, Albumin/Globulin Ratio 1.0 L Result diagrams: 11/25/21 18:34 11/25/21 18:34 - Reevaluation(s) Time: 19:21 Reevaluation #1: On reevaluation, patient is feeling better. Findings are consistent with dependent edema. There is no evidence of heart failure. Patient be discharged on a short course of Lasix. Needs to follow-up with PCP in 48 hours. Given strict return precautions. Verbalized understanding. Medical Decision Narrative: 51-year-old male presented to the emergency department with some shortness of breath and lower extremity swelling. The findings are consistent with dependent edema. Possibly heart failure. Patient does have a longstanding history of hypertension and poor medical compliance. There is no respiratory distress or hypoxia now. Work-up initiated. General Adult HPI - General Chief complaint: PAIN Stated complaint: SOB, Leg swollen Time Seen by Provider: 11/25/21 18:20 Mode of Arrival: Wheelchair Limitations: No Limitations Description of Symptoms (Recalled from ER Triage Doc. by RN): pt to ed c/o shortness of breath and bilateral LE pain x1 day. pt states he was started on a new diuretic this weeke but has not had any relief. pt is comfortable on room air with no visible signs of exacerbation. - History of Present Illness HPI narrative: 51-year-old male presented to the emergency department with bilateral lower extremity swelling and edema. Patient has had this for quite some time. Also endorsing shortness of breath. The patient is relatively sedentary for most of the day. He does have a history of heart failure as well as dependent edema. Patient actually had a follow-up with his PCP today, however he states that he just did not make it. He figured he would just come to the emergency department instead. Patient's shortness of breath appears to be positional. Worse when he exerts himself. Is not h
[2021-11-25 18:46] LABS: Basophils # 0.1 K/mm3 (0-0.2); Eosinophils # 0.4 K/mm3 (0.0-0.4); Eosinophils % 4.1 % (0.1-12.0); Hematocrit 34.9 % (42.0-52.0); Hemoglobin 11.2 g/dL (14.1-18.0); Lymphocytes # 1.6 K/mm3 (0.7-4.5); Lymphocytes % 15.3 % (10-50); Mean Corpuscular HGB Conc 32.1 g/dL (31.8-35.4); Mean Corpuscular Hemoglobin 21.8 pg (27.0-31.2); Mean Corpuscular Volume 67.9 fl (80-94); Mean Platelet Volume 8.5 fl (7.4-10.4); Monocytes # 0.7 K/mm3 (0.1-1.0); Monocytes % 6.6 % (1.7-9.3); Neutrophils # 7.8 K/mm3 (1.8-7.8); Platelet Count 423 K/mm3 (142-424); Red Blood Count 5.14 M/mm3 (4.60-6.20); White Blood Count 10.7 K/mm3 (4.8-10.8)
[2021-11-25 18:54] LABS: Chloride 99 mmol/L (98-107); Potassium 3.7 mmoL/L (3.5-5.1); Sodium 139 mmol/L (136-145)
[2021-11-25 18:57] LABS: Alanine Aminotransferase 28 U/L (12-78); Albumin Level 3.9 g/dl (3.5-5.0); Alkaline Phosphatase 193 U/L (38-126); Anion Gap 10.7 mEq/L (5-15); Aspartate Amino Transferase 40 U/L (17-59); Bilirubin,Total 0.3 mg/dl (0.2-1.3); Blood Urea Nitrogen 32 mg/dl (9-20); Carbon Dioxide 33 mmol/L (22.0-30.0); Creatinine Clearance Estimated 66 mL/min (50-200); Estimated Glomerular Filt Rate 58 ml/min (>60); GFR (African American) 71 ML/MIN (>60); Globulin 3.8 g/dL (1.3-3.2); Total Protein,Serum 7.7 g/dl (6.3-8.2)
[2021-11-25 18:58] LABS: Calcium 9.4 mg/dl (8.4-10.2); Glucose 106 mg/dl (74-100)
[2021-11-25 19:07] LABS: NT Pro Brain Natriuretic Pep. 58.7 pg/mL (0-125)
[2021-11-25 19:40] VITALS: BP 154/78; PULSE 80; RESP 16; TEMP 36.8; O2SAT 98
== END 2021-11-25 19:41 | disposition home or self-care (01) ==
PROVIDERS: Emergency Provider Emergency Medicine; PCP Family Medicine
DX: R60.1 Generalized edema (principal); R06.02 Shortness of breath; M79.89 Other specified soft tissue disorders; Z79.82 Long term (current) use of aspirin; Z79.4 Long term (current) use of insulin; Z79.899 Other long term (current) drug therapy; Z88.8 Allergy status to other drugs, medicaments and biological substances; E11.9 Type 2 diabetes mellitus without complications; I10 Essential (primary) hypertension; E78.5 Hyperlipidemia, unspecified; I73.9 Peripheral vascular disease, unspecified; I48.91 Unspecified atrial fibrillation; F41.9 Anxiety disorder, unspecified; F32.A Depression, unspecified; K21.9 Gastro-esophageal reflux disease without esophagitis; Z95.0 Presence of cardiac pacemaker
CPT/HCPCS: 80053; 83880; 85025; 99283

== ENCOUNTER 2021-11-27 10:23 | Emergency (ER) | payer MEDICARE, MEDICAID, SELFPAY ==
[2021-11-27] VITALS (7 sets, daily range): BP systolic 76–124; BP diastolic 47–65; PULSE 78–87; RESP 16–23; TEMP 36.6; O2SAT 94–98; BMI 45.6
--- NOTE | 2021-11-27 10:30 | HMH.EDGENADL ---
ED Disposition Clinical Impression: CHF (congestive heart failure), CKD (chronic kidney disease) stage 3, GFR 30-59 ml/min Disposition: Home, Self-Care Condition on Discharge: Good Instructions: Heart Failure Additional Instructions: Take an extra dose of your torsemide over the next 2 days. If you typically take your water pill in the morning take the extra dose at night. If you typically take it in the evening then take it in the morning. Follow-up with your primary care on Monday. Referrals: Bert Villagomez MD [Primary Care Provider] - Time of Disposition: : - Critical Care Critical Care Time: No Attestation: On , the high probability of a clinically significant, sudden or life threatening deterioration of the following system(s) required my full and direct attention, intervention and personal management. The time I documented below is in addition to time spent performing reported procedures but includes the following listed in this critical care notation. Medical Decision Making - Medical Records Medical records reviewed: Yes: I reviewed the patient's medical records. - Fahad Inquiry Pt receiving controlled substance: No Vital Signs: 11/27/21 10:23 11/27/21 10:41 11/27/21 10:51 Temperature 97.9 F Temperature Source Oral Pulse Rate 87 82 Pulse Rate [Radial] 80 Respiratory Rate 22 23 Blood Pressure 101/50 L 76/47 L Blood Pressure [Right Arm] 124/60 Blood Pressure Mean 67 Blood Pressure Mean [Right Arm] 81 Blood Pressure Position [Right Arm] Sitting 02 Sat by Pulse Oximetry 94 L 97 Oxygen Delivery Method Room Air 11/27/21 10:52 11/27/21 11:00 11/27/21 11:32 Temperature Temperature Source Pulse Rate 84 85 85 Pulse Rate [Radial] Respiratory Rate Blood Pressure 91/55 L 105/58 L 119/55 L Blood Pressure [Right Arm] Blood Pressure Mean Blood Pressure Mean [Right Arm] Blood Pressure Position [Right Arm] 02 Sat by Pulse Oximetry 96 Oxygen Delivery Method - Lab Data Lab Results 11/27/21 10:49: POC Glucose 507 H* 11/27/21 10:50: SARS-CoV-2 (PCR) Not detected, Influenza A Untype (PCR) Not detected, Influenza Type B (PCR) Not detected 11/27/21 11:38: Sodium 135 L, Potassium 4.4, Chloride 97 L, Carbon Dioxide 28, Anion Gap 14.4, BUN 50 H D, Creatinine 1.80 H D, Estimated Creat Clear 48, Estimated GFR 40 L, Est GFR ( Amer) 49 L D, Glucose 512 H*, Calcium 8.1 L Result diagrams: 11/27/21 11:38 Orders (Tests/Meds): ED MEDICATIONS Discontinued Medications Generic Name Dose Route Start Last Admin Trade Name Jeremy PRN Reason Stop Dose Admin Insulin Human Lispro 10 unit 11/27/21 11:19 11/27/21 11:42 Humalog 100 Units/Ml 3ml Vial (Ssi) SQ 11/27/21 11:20 10 unit ONCE ONE Administration Torsemide 100 mg 11/27/21 11:18 11/27/21 11:42 Torsemide 20mg Tablet PO 11/27/21 11:19 100 mg DAILY ONE Administration Medical Decision Narrative: 51-year-old male who presents for complaint of shortness of breath. He is not hypoxic on arrival is in no respiratory distress and is otherwise well-appearing. Fingerstick is greater than 500 based on review of his data he is always above 500 and seems to be fairly noncompliant despite stating that he uses insulin. States that he has anyone check his blood sugar at home. He was given 10 units of regular insulin instructed to take his correction dose on discharge. Patient's chest x-ray demonstrates worsening pulmonary congestion and edema compared to most recent ER visit. He was given an extra dose of his home torsemide. BMP demonstrates mild elevation in creatinine but no significant acute kidney injury over his typical baseline labs. Instructed to take extra doses of torsemide over the next 2 days follow-up with primary care on Monday. General Adult HPI - General Stated complaint: soa Time Seen by Provider: 11/27/21 10:31 Mode of Arrival: Wheelchair Source of Informat
--- NOTE | 2021-11-27 10:41 | XR_ITS ---
PROCEDURE INFORMATION: Exam: XR Chest Exam date and time: 11/27/2021 11:02 AM Age: 51 years old Clinical indication: Shortness of breath; Additional info: Dyspnea TECHNIQUE: Imaging protocol: XR of the chest. Views: 1 view. COMPARISON: CR XR CHEST PORTABLE 11/23/2021 9:52 AM FINDINGS: Lungs: Slight redistribution of the pulmonary vasculature. Mild ground-glass opacities bilaterally. Pleural spaces: Unremarkable. No pleural effusion. No pneumothorax. Heart/Mediastinum: Unremarkable. No cardiomegaly. Bones/joints: Unremarkable. IMPRESSION: 1. Findings compatible with mild changes of congestive failure. 2. Subtle ground-glass regions of opacification. interstitial pneumonitis could not be excluded.
[2021-11-27 11:00] LABS: POC Glucose,Bedside 507 (70-110)
--- NOTE | 2021-11-27 11:02 | PC.NURSE ---
radiology is bedside doing chest x-ray.
[2021-11-27 11:46] LABS: Coronavirus 19, PCR Not Detected (NotDetected); Influenza A, PCR Not Detected (NotDetected); Influenza B, PCR Not Detected (NotDetected)
[2021-11-27 12:00] LABS: Chloride 97 mmol/L (98-107)
[2021-11-27 12:01] LABS: Potassium 4.4 mmoL/L (3.5-5.1); Sodium 135 mmol/L (136-145)
[2021-11-27 12:04] LABS: Anion Gap 14.4 mEq/L (5-15); Blood Urea Nitrogen 50 mg/dl (9-20); Calcium 8.1 mg/dl (8.4-10.2); Carbon Dioxide 28 mmol/L (22.0-30.0); Creatinine Clearance Estimated 48 mL/min (50-200); Estimated Glomerular Filt Rate 40 ml/min (>60); GFR (African American) 49 ML/MIN (>60)
[2021-11-27 12:09] LABS: Glucose 512 mg/dl (74-100)
--- NOTE | 2021-11-27 12:26 | PC.NURSE ---
patient is sitting up in wheelchair with mom bedside. nothing needed at this time. patient is drinking some Dt. [place].
== END 2021-11-27 13:57 | disposition home or self-care (01) ==
PROVIDERS: Emergency Provider Student in an Organized Health Care Education/Training Program; PCP Family Medicine
DX: R06.02 Shortness of breath (principal); I13.0 Hypertensive heart and chronic kidney disease with heart failure and stage 1 through stage 4 chronic kidney disease, or unspecified chronic kidney disease; I50.9 Heart failure, unspecified; N18.30 Chronic kidney disease, stage 3 unspecified; I25.10 Atherosclerotic heart disease of native coronary artery without angina pectoris; I73.9 Peripheral vascular disease, unspecified; Z20.822 Contact with and (suspected) exposure to COVID-19; K21.9 Gastro-esophageal reflux disease without esophagitis; E78.5 Hyperlipidemia, unspecified; E11.22 Type 2 diabetes mellitus with diabetic chronic kidney disease; Q24.9 Congenital malformation of heart, unspecified; F32.A Depression, unspecified; F41.9 Anxiety disorder, unspecified; F17.290 Nicotine dependence, other tobacco product, uncomplicated; Z79.4 Long term (current) use of insulin; Z79.51 Long term (current) use of inhaled steroids; Z79.52 Long term (current) use of systemic steroids; Z79.82 Long term (current) use of aspirin; Z79.899 Other long term (current) drug therapy; Z88.8 Allergy status to other drugs, medicaments and biological substances; Z95.0 Presence of cardiac pacemaker; Z91.19 Patient's noncompliance with other medical treatment and regimen; Z80.9 Family history of malignant neoplasm, unspecified
CPT/HCPCS: 71045; 80048; 82962; 96372; 99284; C9803; U0003; U0005

== ENCOUNTER 2021-11-27 23:15 | Emergency (ER) | payer MEDICARE, MEDICAID, SELFPAY ==
[2021-11-27 23:09] VITALS: BP 118/49; PULSE 93; RESP 18; TEMP 36.4; O2SAT 95; BMI 45.6
--- NOTE | 2021-11-27 23:20 | XR_ITS ---
PROCEDURE INFORMATION: Exam: XR Lumbosacral Spine Exam date and time: 11/27/2021 11:28 PM Age: 51 years old Clinical indication: Injury or trauma; Fall; Blunt trauma (contusions or hematomas) TECHNIQUE: Imaging protocol: XR of the lumbosacral spine. Views: 2 or 3 views. COMPARISON: CT LUMBAR SPINE WO CON 04/18/2021 4:17 PM FINDINGS: Bones/joints: Straightening of lumbar lordosis. Visualized vertebral body heights are preserved. Soft tissues: Unremarkable. IMPRESSION: Visualized vertebral body heights are preserved. If symptoms persist consider further evaluation with MR.
--- NOTE | 2021-11-27 23:20 | XR_ITS ---
PROCEDURE INFORMATION: Exam: XR Right Shoulder Exam date and time: 11/27/2021 11:34 PM Age: 51 years old Clinical indication: Injury or trauma; Fall; Blunt trauma (contusions or hematomas); Shoulder; Right TECHNIQUE: Imaging protocol: XR Right shoulder. Views: 2 or more views. COMPARISON: CR XR SHOULDER RT MIN 2V 11/18/2021 11:07 PM FINDINGS: Bones/joints: Limited transscapular view, cannot exclude posterior dislocation. No evidence of acute fracture. Soft tissues: Grossly unremarkable. IMPRESSION: 1. Limited transscapular view, cannot exclude posterior dislocation. Recommend correlation with axillary view. 2. No evidence of acute fracture. If symptoms persist, recommend repeat radiograph in 5-7 days.
--- NOTE | 2021-11-27 23:20 | XR_ITS ---
PROCEDURE INFORMATION: Exam: XR Pelvis Exam date and time: 11/27/2021 11:30 PM Age: 51 years old Clinical indication: Injury or trauma; Fall; Blunt trauma (contusions or hematomas); Bilateral; Pelvic region TECHNIQUE: Imaging protocol: XR pelvis. Views: 1 or 2 view. COMPARISON: CR XR PELVIS 1-2V 11/18/2021 11:03 PM FINDINGS: Bones/joints: No evidence of acute fracture. Soft tissues: Limited study due to patient's body habitus. IMPRESSION: No evidence of acute fracture. If symptoms persist, recommend repeat radiograph in 5-7 days.
[2021-11-27 23:23] LABS: POC Glucose,Bedside 566 (70-110)
[2021-11-27 23:31] VITALS: BP 109/55; PULSE 95; O2SAT 99
--- NOTE | 2021-11-27 23:31 | PC.NURSE ---
RN in room placing IV and getting labs
--- NOTE | 2021-11-27 23:38 | HMH.EDFALL ---
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 The time I documented below is in addition to time spent performing reported procedures but includes the following listed in this critical care notation. Medical Decision Making - Medical Records Medical records reviewed: Yes: I reviewed the patient's medical records. - Fahad Inquiry Pt receiving controlled substance: No Vital Signs: 11/27/21 23:09 11/27/21 23:31 11/28/21 00:01 Temperature 97.5 F L Temperature Source Oral Pulse Rate 95 H 96 H Pulse Rate [Left Radial] 93 H Respiratory Rate 18 Blood Pressure 109/55 L 137/72 Blood Pressure [Right Arm] 118/49 L Blood Pressure Mean [Right Arm] 72 Blood Pressure Source [Right Arm] Automatic Cuff Blood Pressure Position [Right Arm] Sitting 02 Sat by Pulse Oximetry 95 99 96 Oxygen Delivery Method Room Air - Lab Data Lab results reviewed: Yes: I reviewed the patient's lab results. Lab Results 11/27/21 23:16: POC Glucose 566 H* 11/27/21 23:35: WBC 8.0 D, RBC 4.64, Hgb 9.9 L, Hct 32.4 L, MCV 69.9 L, MCH 21.3 L, MCHC 30.4 L, RDW 18.3 H, Plt Count 349, MPV 8.7, Neut % (Auto) 73.4, Lymph % (Auto) 14.3, [place] % (Auto) 7.4, Eos % (Auto) 4.1, Baso % (Auto) 0.8, Neut # (Auto) 5.9, Lymph # (Auto) 1.2, [place] # (Auto) 0.6, Eos # (Auto) 0.3, Baso # (Auto) 0.1 11/27/21 23:35: Sodium 133 L, Potassium 4.1, Chloride 93 L, Carbon Dioxide 30, Anion Gap 14.1, BUN 50 H, Creatinine 1.70 H, Estimated Creat Clear 50, Estimated GFR 43 L, Est GFR ( Amer) 52 L, Glucose 582 H*, Calcium 7.8 L, Total Bilirubin < 0.1 L, AST 37, ALT 32, Alkaline Phosphatase 267 H, Total Protein 6.6, Albumin 3.3 L, Globulin 3.3 H, Albumin/Globulin Ratio 1.0 L 11/27/21 23:35: Acetone Level None detected Result diagrams: 11/27/21 23:35 11/27/21 23:35 Orders (Tests/Meds): ED MEDICATIONS Generic Name Dose Route Start Last Admin Trade Name Freq PRN Reason Stop Dose Admin Sodium Chloride 1,000 mls @ 999 mls/hr 11/27/21 23:30 11/27/21 23:40 Sod Chlor 0.9% 1000ml Bag IV 11/28/21 00:30 999 mls/hr .Q1H1M CARLIN Administration Discontinued Medications Generic Name Dose Route Start Last Admin Trade Name Freq PRN Reason Stop Dose Admin Insulin Human Regular 5 unit 11/28/21 00:06 11/28/21 00:10 Insulin Human Regular 100 Units/Ml 10ml Vial IVP 11/28/21 00:07 5 unit ONCE ONE Administration - Radiology Data #1 Image(s): Chest, L-Spine, Shoulder Image Reviewed: Yes I have reviewed radiologist's interpretation Preliminary Findings: No Fracture Seen Medical Decision Narrative: pt with noacute fx Fall HPI - General Chief Complaint: Fall Stated Complaint: SOA, HIGH BS Time Seen by Provider: 11/27/21 23:15 Mode of Arrival: EMS Source of Information: Patient, EMS, Medical Record Limitations: Physical Limitations Description of Symptoms (Recalled from ER Triage Doc. by RN): PT REPORTS FALL AT HOME- STATES HE IS H
[2021-11-27 23:45] LABS: Basophils # 0.1 K/mm3 (0-0.2); Basophils % 0.8 % (0.1-2.0); Eosinophils # 0.3 K/mm3 (0.0-0.4); Eosinophils % 4.1 % (0.1-12.0); Hematocrit 32.4 % (42.0-52.0); Hemoglobin 9.9 g/dL (14.1-18.0); Lymphocytes # 1.2 K/mm3 (0.7-4.5); Lymphocytes % 14.3 % (10-50); Mean Corpuscular HGB Conc 30.4 g/dL (31.8-35.4); Mean Corpuscular Hemoglobin 21.3 pg (27.0-31.2); Mean Corpuscular Volume 69.9 fl (80-94); Mean Platelet Volume 8.7 fl (7.4-10.4); Monocytes # 0.6 K/mm3 (0.1-1.0); Monocytes % 7.4 % (1.7-9.3); Neutrophils # 5.9 K/mm3 (1.8-7.8); Neutrophils % 73.4 % (37.0-80.0); Platelet Count 349 K/mm3 (142-424); Red Blood Count 4.64 M/mm3 (4.60-6.20); Red Cell Distribution Width 18.3 % (11.5-17.5)
[2021-11-27 23:51] LABS: Acetone, Serum (Rapid) None Detected (None Detect)
[2021-11-28 00:01] VITALS: BP 137/72; PULSE 96; O2SAT 96
[2021-11-28 00:03] LABS: Alanine Aminotransferase 32 U/L (12-78); Albumin Level 3.3 g/dl (3.5-5.0); Alkaline Phosphatase 267 U/L (38-126); Anion Gap 14.1 mEq/L (5-15); Aspartate Amino Transferase 37 U/L (17-59); Blood Urea Nitrogen 50 mg/dl (9-20); Calcium 7.8 mg/dl (8.4-10.2); Carbon Dioxide 30 mmol/L (22.0-30.0); Chloride 93 mmol/L (98-107); Creatinine Clearance Estimated 50 mL/min (50-200); Estimated Glomerular Filt Rate 43 ml/min (>60); GFR (African American) 52 ML/MIN (>60); Globulin 3.3 g/dL (1.3-3.2); Potassium 4.1 mmoL/L (3.5-5.1); Sodium 133 mmol/L (136-145); Total Protein,Serum 6.6 g/dl (6.3-8.2)
[2021-11-28 00:06] LABS: Bilirubin,Total < 0.1 mg/dl (0.2-1.3); Glucose 582 mg/dl (74-100)
--- NOTE | 2021-11-28 00:10 | PC.NURSE ---
called for ride home when pt is D/C'd
[2021-11-28 00:30] VITALS: BP 142/76; PULSE 94; RESP 16; O2SAT 95
[2021-11-28 00:52] VITALS: BP 122/76; PULSE 88; RESP 18; TEMP 36.7; O2SAT 95
[2021-11-28 00:56] LABS: POC Glucose,Bedside 598 (70-110)
== END 2021-11-28 00:54 | disposition home or self-care (01) ==
PROVIDERS: Emergency Provider Emergency Medicine
DX: S43.401A Unspecified sprain of right shoulder joint, initial encounter (principal); I13.0 Hypertensive heart and chronic kidney disease with heart failure and stage 1 through stage 4 chronic kidney disease, or unspecified chronic kidney disease; I50.9 Heart failure, unspecified; N18.30 Chronic kidney disease, stage 3 unspecified; Z20.822 Contact with and (suspected) exposure to COVID-19; I25.10 Atherosclerotic heart disease of native coronary artery without angina pectoris; I73.9 Peripheral vascular disease, unspecified; K21.9 Gastro-esophageal reflux disease without esophagitis; E78.5 Hyperlipidemia, unspecified; Q24.9 Congenital malformation of heart, unspecified; F32.A Depression, unspecified; F41.9 Anxiety disorder, unspecified; F17.290 Nicotine dependence, other tobacco product, uncomplicated; Z79.4 Long term (current) use of insulin; Z79.51 Long term (current) use of inhaled steroids; Z79.52 Long term (current) use of systemic steroids; Z79.82 Long term (current) use of aspirin; Z79.84 Long term (current) use of oral hypoglycemic drugs; Z79.899 Other long term (current) drug therapy; Z95.0 Presence of cardiac pacemaker; Z91.19 Patient's noncompliance with other medical treatment and regimen; Z80.9 Family history of malignant neoplasm, unspecified; W01.10XA Fall on same level from slipping, tripping and stumbling with subsequent striking against unspecified object, initial encounter; Y92.009 Unspecified place in unspecified non-institutional (private) residence as the place of occurrence of the external cause
CPT/HCPCS: 71045; 72100; 72170; 73030; 80048; 80053; 82009; 82962; 85025; 96360; 96361; 96372; 99285; C9803; U0003; U0005

== ENCOUNTER 2021-11-30 23:55 | Emergency (ER) | payer MEDICARE, MEDICAID, SELFPAY ==
--- NOTE | 2021-11-30 23:51 | ECG_ITS ---
APPROVED REPORT Exam: Resting ECG HR:85 bpm ECG Measurements Heart Rate 85 AXES ND 168 P 66 QRSd 111 QRS 54 QT 392 T 65 QTc 434 Conclusion SINUS RHYTHM MODERATE INTRAVENTRICULAR CONDUCTION DELAY [110+ ms QRS DURATION] BORDERLINE ECG UNCONFIRMED REPORT Electronically signed by : Cameron Kohli MD 12/01/2021 16:53:50
[2021-11-30 23:56] VITALS: BP 119/66; PULSE 79; RESP 16; TEMP 37; O2SAT 95; BMI 45.6
[2021-12-01 00:19] VITALS: BMI 45.6
--- NOTE | 2021-12-01 00:19 | PC.NURSE ---
Called lab for blood draw
--- NOTE | 2021-12-01 00:20 | XR_ITS ---
PROCEDURE INFORMATION: Exam: XR Chest Exam date and time: 12/01/2021 1:15 AM Age: 51 years old Clinical indication: Shortness of breath; Additional info: SOA TECHNIQUE: Imaging protocol: XR of the chest. Views: 1 view. COMPARISON: CR XR CHEST PORTABLE 11/27/2021 11:02 AM FINDINGS: Lungs: Unremarkable. No consolidation. Pleural spaces: Unremarkable. No pleural effusion. No pneumothorax. Heart/Mediastinum: Mild stable cardiomegaly. Bones/joints: Unremarkable. IMPRESSION: Mild stable cardiomegaly. Clear lungs. Improved pulmonary venous congestion when compared to the prior.
[2021-12-01 00:25] VITALS: BP 124/90; PULSE 84; RESP 16; O2SAT 96
--- NOTE | 2021-12-01 00:28 | PC.NURSE ---
lab at bedside
--- NOTE | 2021-12-01 00:38 | PC.NURSE ---
pt up to restroom
[2021-12-01 00:40] LABS: Basophils # 0.1 K/mm3 (0-0.2); Eosinophils # 0.2 K/mm3 (0.0-0.4); Eosinophils % 3.1 % (0.1-12.0); Hemoglobin 9.2 g/dL (14.1-18.0); Lymphocytes # 0.8 K/mm3 (0.7-4.5); Lymphocytes % 11.2 % (10-50); Mean Corpuscular HGB Conc 30.6 g/dL (31.8-35.4); Mean Corpuscular Hemoglobin 21.5 pg (27.0-31.2); Mean Corpuscular Volume 70.3 fl (80-94); Mean Platelet Volume 9.3 fl (7.4-10.4); Monocytes # 0.5 K/mm3 (0.1-1.0); Monocytes % 7.2 % (1.7-9.3); Neutrophils # 5.2 K/mm3 (1.8-7.8); Neutrophils % 77.4 % (37.0-80.0); Platelet Count 291 K/mm3 (142-424); Red Blood Count 4.27 M/mm3 (4.60-6.20); Red Cell Distribution Width 18.8 % (11.5-17.5); White Blood Count 6.8 K/mm3 (4.8-10.8)
[2021-12-01 00:47] LABS: Alanine Aminotransferase 33 U/L (12-78); Albumin Level 3.3 g/dl (3.5-5.0); Alkaline Phosphatase 214 U/L (38-126); Anion Gap 10.5 mEq/L (5-15); Aspartate Amino Transferase 42 U/L (17-59); Blood Urea Nitrogen 40 mg/dl (9-20); Calcium 7.8 mg/dl (8.4-10.2); Carbon Dioxide 33 mmol/L (22.0-30.0); Chloride 94 mmol/L (98-107); Creatinine Clearance Estimated 53 mL/min (50-200); Estimated Glomerular Filt Rate 46 ml/min (>60); GFR (African American) 56 ML/MIN (>60); Globulin 3.3 g/dL (1.3-3.2); Potassium 3.5 mmoL/L (3.5-5.1); Sodium 134 mmol/L (136-145); Total Protein,Serum 6.6 g/dl (6.3-8.2)
[2021-12-01 00:58] LABS: Bilirubin,Total < 0.1 mg/dl (0.2-1.3)
--- NOTE | 2021-12-01 00:59 | PC.NURSE ---
lab called with glucose of 507 repeated and verified and reported to
[2021-12-01 01:00] LABS: Troponin I < 0.01 ng/ml (0.00-0.034)
[2021-12-01 01:19] LABS: Glucose 507 mg/dl (74-100)
--- NOTE | 2021-12-01 01:58 | PC.NURSE ---
pt had requested to sit in w/c and was dozing off. leaning forward in the chair. Advised pt if he continued to lean forward, dozing off he would have to get back into bed because he was a fall risk to himself.
[2021-12-01 02:00] VITALS: BP 122/80; PULSE 80; RESP 16; O2SAT 96
--- NOTE | 2021-12-01 02:32 | PC.NURSE ---
pt ambulated to restroom
--- NOTE | 2021-12-01 03:21 | PC.NURSE ---
Pt rolling around his room in w/c
--- NOTE | 2021-12-01 03:55 | HMH.EDSOB ---
ED Disposition Clinical Impression: SOB (shortness of breath), Poorly controlled diabetes mellitus Disposition: Home, Self-Care Condition on Discharge: Good Instructions: DI for Shortness of Breath Additional Instructions: see pcp luis Referrals: Bert Villagomez MD [Primary Care Provider] - - Critical Care Critical Care Time: No Attestation: On 11/30/21, the high probability of a clinically significant, sudden or life threatening deterioration of the following system(s) required my full and direct attention, intervention and personal management. The time I documented below is in addition to time spent performing reported procedures but includes the following listed in this critical care notation. Medical Decision Making - Medical Records Medical records reviewed: Yes: I reviewed the patient's medical records. - Fahad Inquiry Pt receiving controlled substance: No Vital Signs: 11/30/21 23:56 12/01/21 00:25 12/01/21 02:00 Temperature 98.6 F Temperature Source Oral Pulse Rate 84 80 Pulse Rate [Right] 79 Respiratory Rate 16 16 16 Blood Pressure 124/90 122/80 Blood Pressure [Right Arm] 119/66 Blood Pressure Mean [Right Arm] 83 Blood Pressure Source Automatic Cuff Blood Pressure Source [Right Arm] Automatic Cuff Blood Pressure Position Sitting Blood Pressure Position [Right Arm] Sitting 02 Sat by Pulse Oximetry 95 96 96 Oxygen Delivery Method Nasal Cannula Nasal Cannula Nasal Cannula Oxygen Flow Rate (LPM) 3 4 4 - Lab Data Lab results reviewed: Yes: I reviewed the patient's lab results. Lab Results 12/01/21 00:30: WBC 6.8, RBC 4.27 L, Hgb 9.2 L, Hct 30.0 L, MCV 70.3 L, MCH 21.5 L, MCHC 30.6 L, RDW 18.8 H, Plt Count 291, MPV 9.3, Neut % (Auto) 77.4, Lymph % (Auto) 11.2, [place] % (Auto) 7.2, Eos % (Auto) 3.1, Baso % (Auto) 1.0, Neut # (Auto) 5.2, Lymph # (Auto) 0.8, [place] # (Auto) 0.5, Eos # (Auto) 0.2, Baso # (Auto) 0.1 12/01/21 00:30: Sodium 134 L, Potassium 3.5, Chloride 94 L, Carbon Dioxide 33 H, Anion Gap 10.5, BUN 40 H, Creatinine 1.60 H, Estimated Creat Clear 53, Estimated GFR 46 L, Est GFR ( Amer) 56 L, Glucose 507 H*, Calcium 7.8 L, Total Bilirubin < 0.1 L, AST 42, ALT 33, Alkaline Phosphatase 214 H, Troponin I < 0.01, Total Protein 6.6, Albumin 3.3 L, Globulin 3.3 H, Albumin/Globulin Ratio 1.0 L Result diagrams: 12/01/21 00:30 12/01/21 00:30 - Radiology Data #1 Image(s): Chest Image Reviewed: Yes I have reviewed radiologist's interpretation Preliminary Findings: Normal/NAD - ECG Data Tracing #1 Normal Sinus Rhythm: Yes Ischemic changes: non-specific ST-T wave changes Medical Decision Narrative: stable exam and labs except for glucose Resp/SOB HPI - General Chief Complaint: Shortness of Breath/Dyspnea Stated Complaint: SOA Time Seen by Provider: 12/01/21 01:00 Mode of Arrival: Wheelchair Source of Information: Patient, Parent(s), Medical Record Limitations: No Limitations Description of Symptoms (Recalled from ER Triage Doc. by RN): pt c/o SOA. Advises he has been feeling SOA for a couple of days and has been seen for it - History of Present Illness sob over the last 2 days - no fever MD Complaint: shortness of breath Onset (ago): day(s) Context: recent illness Known history of: diabetes - Related Data Home oxygen amount: none Home Medications Medication Instructions Recorded Confirmed aspirin 81 mg tablet,delayed 81 mg PO DAILY tab 10/27/17 11/18/21 release cholecalciferol (vitamin D3) 1,250 1,250 mcg PO WEEKLY 01/18/21 11/18/21 mcg (50,000 unit) capsule Doxazosin Mesylate [Cardura 4mg 2 mg PO BID 01/29/21 11/18/21 Tab] Trazodone HCl 50 mg PO HS 03/08/21 11/18/21 Budesonide/Formoterol Fumarate 2 puff IH BID 04/02/21 11/18/21 [Budesonide-Formoterol 160-4.5] metformin 500 mg tablet 500 mg PO DAILY tab 06/08/21 11/18/21 Flash Glucose Sensor [Freestyle See Rx Instructions .ROUTE TID 07/07/21 11/18/21 Bessy 2 Sens
[2021-12-01 04:05] VITALS: BP 151/83; PULSE 94; RESP 18; TEMP 36.6; O2SAT 94
== END 2021-12-01 04:09 | disposition home or self-care (01) ==
PROVIDERS: Emergency Provider Emergency Medicine; PCP Family Medicine
DX: R06.02 Shortness of breath (principal); E11.65 Type 2 diabetes mellitus with hyperglycemia; Z79.84 Long term (current) use of oral hypoglycemic drugs; Z79.4 Long term (current) use of insulin; Z79.82 Long term (current) use of aspirin; Z79.899 Other long term (current) drug therapy; Z88.8 Allergy status to other drugs, medicaments and biological substances; I48.91 Unspecified atrial fibrillation; I25.10 Atherosclerotic heart disease of native coronary artery without angina pectoris; K21.9 Gastro-esophageal reflux disease without esophagitis; E78.5 Hyperlipidemia, unspecified; I11.0 Hypertensive heart disease with heart failure; I50.9 Heart failure, unspecified; Z95.0 Presence of cardiac pacemaker; I73.9 Peripheral vascular disease, unspecified; N28.9 Disorder of kidney and ureter, unspecified
CPT/HCPCS: 36415; 71045; 80053; 84484; 85025; 93005; 99284

== ENCOUNTER 2021-12-02 06:52 | Emergency (ER) | payer MEDICARE, MEDICAID, SELFPAY ==
[2021-12-02] VITALS (16 sets, daily range): BP systolic 94–136; BP diastolic 45–79; PULSE 60–86; RESP 13–19; TEMP 36.9–37.1; O2SAT 95–98; BMI 56.5
--- NOTE | 2021-12-02 06:58 | PC.NURSE ---
Sofie Garza RN at BS
--- NOTE | 2021-12-02 07:03 | PC.NURSE ---
Both rails on ED stretcher are up. Pt is visable from the Nurse station, pt resting
--- NOTE | 2021-12-02 07:10 | PC.NURSE ---
Pt had nitro patch on his abd, when questioned about this he denied any chest pain. I advised patient we were going to remove the patch at this time which should help improve his b/p and help make him feel better.
--- NOTE | 2021-12-02 07:55 | PC.NURSE ---
pt given a diet soda
--- NOTE | 2021-12-02 08:16 | PC.NURSE ---
Thao RN at speaking with patient
--- NOTE | 2021-12-02 08:17 | PC.NURSE ---
helped pt to reposition in bed for comfort, pt given ice chips per his request. Will continue to monitor
--- NOTE | 2021-12-02 08:20 | PC.NURSE ---
Dr. Luna at speaking with patient
--- NOTE | 2021-12-02 08:31 | XR_ITS ---
FINAL REPORT CLINICAL HISTORY: generalized weakness, BLE swelling, crackles on RL COMPARISON: December 01, 2021 FINDINGS: A single portable view of the chest was obtained. The heart is enlarged. There is worsening pulmonary vascular congestion. The mediastinum is within normal limits. There are worsening bibasilar pulmonary opacities, favor atelectasis or pneumonia. The bony thorax is intact. IMPRESSION: Worsening pulmonary vascular congestion. Worsening bibasilar pulmonary opacities, favor atelectasis or pneumonia. Reviewed, Interpreted and Dictated by De Velez III, MD Transcribed by Lamar Delgado Authenticated and [facility]
--- NOTE | 2021-12-02 08:39 | ECG_ITS ---
APPROVED REPORT Exam: Resting ECG HR:68 bpm ECG Measurements Heart Rate 68 AXES DC 157 P 52 QRSd 110 QRS 31 QT 424 T 76 QTc 441 Conclusion SINUS RHYTHM NORMAL ECG UNCONFIRMED REPORT Electronically signed by : Cameron Kohli MD 12/02/2021 21:17:26
--- NOTE | 2021-12-02 08:49 | PC.NURSE ---
notified RT of vbg order, spoke with kevyn
--- NOTE | 2021-12-02 08:54 | PC.NURSE ---
PRINCESS Livingston at BS
--- NOTE | 2021-12-02 08:54 | PC.NURSE ---
pt given urinal; aware that we need a urine sample
[2021-12-02 09:02] LABS: VBG Base Excess 2.5 mmol/L (-2.4-2.3); VBG HCO3 28.4 mmol/L (23-30); VBG PCO2 54.6 mmol/L (35-51); VBG PH 7.33 mmol/L (7.31-7.41); VBG PO2 44.2 mmol/L (28-40); VBG Total CO2 30.1 mmol/L (23-27)
[2021-12-02 09:03] LABS: Chloride 97 mmol/L (98-107); Sodium 137 mmol/L (136-145)
--- NOTE | 2021-12-02 09:03 | HMH.EDGENADL ---
ED Disposition Clinical Impression: Opacities of both lungs present on chest x-ray, Generalized weakness, Pneumonia Disposition: Home, Self-Care Condition on Discharge: Good Prescriptions: Amoxicillin/Potassium Clav [Augmentin 500mg tab] 1 tab PO TID 5 Days #15 tab Transmission Status: Pending to Clinic [email or web address] Azithromycin [Azithromycin 500mg Tab] 500 mg PO DAILY 5 Days #6 tab Transmission Status: Pending to Clinic Pharmacy [facility] Referrals: Star Mathis MD [Primary Care Provider] - - Critical Care Critical Care Time: No Attestation: On 12/02/21, the high probability of a clinically significant, sudden or life threatening deterioration of the following system(s) required my full and direct attention, intervention and personal management. The time I documented below is in addition to time spent performing reported procedures but includes the following listed in this critical care notation. Medical Decision Making - Fahad Inquiry Pt receiving controlled substance: No Vital Signs: 12/02/21 06:53 12/02/21 07:11 12/02/21 07:21 Temperature 98.7 F Temperature Source Oral Pulse Rate 67 69 Pulse Rate [Right] 67 Respiratory Rate 16 16 18 Blood Pressure 99/61 L 109/46 L Blood Pressure Mean 73 67 02 Sat by Pulse Oximetry 96 97 97 Oxygen Delivery Method Room Air Room Air Room Air 12/02/21 07:31 12/02/21 07:41 12/02/21 07:51 Temperature Temperature Source Pulse Rate 67 67 Pulse Rate [Right] Respiratory Rate 17 15 13 Blood Pressure 100/74 L 100/50 L 105/79 L Blood Pressure Mean 78 66 84 02 Sat by Pulse Oximetry 97 98 97 Oxygen Delivery Method 12/02/21 08:01 12/02/21 08:56 12/02/21 08:57 Temperature Temperature Source Pulse Rate 69 78 69 Pulse Rate [Right] Respiratory Rate 19 Blood Pressure 103/45 L 94/59 L 105/51 L Blood Pressure Mean 64 72 69 02 Sat by Pulse Oximetry 98 97 98 Oxygen Delivery Method Room Air 12/02/21 09:00 12/02/21 09:11 12/02/21 09:21 Temperature Temperature Source Pulse Rate 70 70 60 Pulse Rate [Right] Respiratory Rate Blood Pressure 107/59 L 110/67 123/64 Blood Pressure Mean 70 73 78 02 Sat by Pulse Oximetry 97 98 98 Oxygen Delivery Method 12/02/21 10:17 Temperature Temperature Source Pulse Rate 77 Pulse Rate [Right] Respiratory Rate Blood Pressure 116/61 Blood Pressure Mean 68 02 Sat by Pulse Oximetry 97 Oxygen Delivery Method Room Air - Lab Data Lab Results 12/02/21 08:35: VBG pH 7.33, VBG pCO2 54.6 H, VBG pO2 44.2 H, VBG HCO3 28.4, VBG Total CO2 30.1 H, VBG O2 Saturation 74.0 H, VBG Base Excess 2.5 H 12/02/21 08:42: WBC 8.7 D, RBC 4.21 L, Hgb 9.2 L, Hct 28.7 L, MCV 68.1 L, MCH 21.9 L, MCHC 32.2, RDW 19.0 H, Plt Count 327, MPV 11.2 H, Neut % (Auto) 68.2, Lymph % (Auto) 18.1, [place] % (Auto) 8.1, Eos % (Auto) 4.4, Baso % (Auto) 1.1, Neut # (Auto) 6.0, Lymph # (Auto) 1.6, [place] # (Auto) 0.7, Eos # (Auto) 0.4, Baso # (Auto) 0.1 12/02/21 08:42: Sodium 137, Potassium 3.4 L, Chloride 97 L, Carbon Dioxide 33 H, Anion Gap 10.4, BUN 45 H, Creatinine 1.90 H, Estimated Creat Clear 42, Estimated GFR 38 L, Est GFR ( Amer) 46 L, Glucose 251 H, Calcium 8.5, Magnesium 1.8, Total Bilirubin 0.5, AST 51, ALT 35, Alkaline Phosphatase 192 H, Troponin I < 0.01, Total Protein 7.1, Albumin 3.6, Globulin 3.5 H, Albumin/Globulin Ratio 1.0 L 12/02/21 08:42: Lactate 1.0 12/02/21 10:17: Urine Color Yellow, Urine Appearance Clear, Urine pH 6.0, Ur Specific [place] 1.025, Urine Protein 2+, Urine Glucose (UA) 1+, Urine Ketones Negative, Urine Blood Negative, Urine Nitrate Negative, Urine Bilirubin Negative, Urine Urobilinogen 0.2, Ur Leukocyte Esterase Negative, Urine WBC Occasional, Ur Squamous Epith Cells Occasional, Urine Bacteria Trace Result diagrams: 12/02/21 08:42 06/09/22 08:42 Orders (Tests/Meds): ED MEDICATIONS Generic Name Dose Route Start Last Admin Trade Name Freq PRN Reason Stop Dose Admin Sodium
[2021-12-02 09:04] LABS: Potassium 3.4 mmoL/L (3.5-5.1)
--- NOTE | 2021-12-02 09:04 | PC.NURSE ---
morphine held r/t low blood pressure. notified and no new orders placed at this time
[2021-12-02 09:06] LABS: Alanine Aminotransferase 35 U/L (12-78); Albumin Level 3.6 g/dl (3.5-5.0); Alkaline Phosphatase 192 U/L (38-126); Anion Gap 10.4 mEq/L (5-15); Aspartate Amino Transferase 51 U/L (17-59); Basophils # 0.1 K/mm3 (0-0.2); Basophils % 1.1 % (0.1-2.0); Bilirubin,Total 0.5 mg/dl (0.2-1.3); Blood Urea Nitrogen 45 mg/dl (9-20); Calcium 8.5 mg/dl (8.4-10.2); Carbon Dioxide 33 mmol/L (22.0-30.0); Creatinine Clearance Estimated 42 mL/min (50-200); Eosinophils # 0.4 K/mm3 (0.0-0.4); Eosinophils % 4.4 % (0.1-12.0); Estimated Glomerular Filt Rate 38 ml/min (>60); GFR (African American) 46 ML/MIN (>60); Globulin 3.5 g/dL (1.3-3.2); Glucose 251 mg/dl (74-100); Hematocrit 28.7 % (42.0-52.0); Hemoglobin 9.2 g/dL (14.1-18.0); Lymphocytes # 1.6 K/mm3 (0.7-4.5); Lymphocytes % 18.1 % (10-50); Mean Corpuscular HGB Conc 32.2 g/dL (31.8-35.4); Mean Corpuscular Hemoglobin 21.9 pg (27.0-31.2); Mean Corpuscular Volume 68.1 fl (80-94); Mean Platelet Volume 11.2 fl (7.4-10.4); Monocytes # 0.7 K/mm3 (0.1-1.0); Monocytes % 8.1 % (1.7-9.3); Neutrophils % 68.2 % (37.0-80.0); Platelet Count 327 K/mm3 (142-424); Red Blood Count 4.21 M/mm3 (4.60-6.20); Total Protein,Serum 7.1 g/dl (6.3-8.2); White Blood Count 8.7 K/mm3 (4.8-10.8)
[2021-12-02 09:07] LABS: Magnesium 1.8 mg/dl (1.6-2.3)
--- NOTE | 2021-12-02 09:08 | PC.NURSE ---
pt placed in the wheelchair by staff per request for comfort
--- NOTE | 2021-12-02 09:17 | PC.NURSE ---
warm blanket given at this time for pt comfort, will continue to monitor
[2021-12-02 09:27] LABS: Troponin I < 0.01 ng/ml (0.00-0.034)
[2021-12-02 10:25] LABS: Microscopic, Urine URINE MICROSCOPIC (MICROSCOPIC)
[2021-12-02 10:27] LABS: Appearance,Urine CLEAR (Clear); Bilirubin,Urine Negative (Negative); Blood, Urine Negative (Negative); Color,Urine YELLOW (Yellow); Glucose,Urine (UA) 1+ (Negative); Ketones,Urine Negative (Negative); Leukocyte Esterase,Urine Negative (Negative); Nitrate,Urine Negative (Negative); Protein,Urine 2+ (Negative); Specific Gravity, Urine 1.025 (1.005-1.030); Urobilinogen,Urine 0.2 EU/dl (0.2)
--- NOTE | 2021-12-02 10:32 | PC.NURSE ---
pt sitting up in wheelchair, assisted pt with getting warm blanket around his back. Will continue to monitor
[2021-12-02 10:40] LABS: Bacteria,Urine Trace /lpf; Squamous Epithelial Cell,Urine Occasional #/hpf (0-5); WBC,Urine Occasional #/hpf (0-3)
--- NOTE | 2021-12-02 10:51 | PC.NURSE ---
obtained covid swab. also attempted to call and no answer
--- NOTE | 2021-12-02 11:28 | PC.NURSE ---
contacted pt kelechi guerrier per number given by pt, spoke with son states he will let pts know to come and get pt. updated pt on being able to contact pt.
--- NOTE | 2021-12-02 11:43 | PC.NURSE ---
pt sitting in wheelchair eating lunch tray waiting for his ride.
--- NOTE | 2021-12-02 12:14 | PC.NURSE ---
patient sitting in wheelchair, waiting for ride at this time. Pt finished lunch tray.
== END 2021-12-02 12:37 | disposition home or self-care (01) ==
PROVIDERS: Emergency Provider Student in an Organized Health Care Education/Training Program; PCP Emergency Medicine
DX: R53.1 Weakness (principal); R06.02 Shortness of breath; M79.10 Myalgia, unspecified site; R53.82 Chronic fatigue, unspecified; R60.9 Edema, unspecified; Z20.822 Contact with and (suspected) exposure to COVID-19; I11.0 Hypertensive heart disease with heart failure; I50.9 Heart failure, unspecified; N28.9 Disorder of kidney and ureter, unspecified; I25.10 Atherosclerotic heart disease of native coronary artery without angina pectoris; I48.91 Unspecified atrial fibrillation; I73.9 Peripheral vascular disease, unspecified; K21.9 Gastro-esophageal reflux disease without esophagitis; E78.5 Hyperlipidemia, unspecified; E11.9 Type 2 diabetes mellitus without complications; M54.50 Low back pain, unspecified; G89.29 Other chronic pain; Q24.9 Congenital malformation of heart, unspecified; F17.290 Nicotine dependence, other tobacco product, uncomplicated; Z79.1 Long term (current) use of non-steroidal anti-inflammatories (NSAID); Z79.51 Long term (current) use of inhaled steroids; Z79.52 Long term (current) use of systemic steroids; Z79.4 Long term (current) use of insulin; Z79.82 Long term (current) use of aspirin; Z79.84 Long term (current) use of oral hypoglycemic drugs; Z79.899 Other long term (current) drug therapy; Z88.8 Allergy status to other drugs, medicaments and biological substances; Z95.0 Presence of cardiac pacemaker; Z99.3 Dependence on wheelchair
CPT/HCPCS: 71045; 80053; 81001; 82803; 83605; 83735; 84484; 85025; 87040; 93005; 96374; 96375; 96376; 99285; C9803; U0003; U0005

== ENCOUNTER 2021-12-03 14:53 | Observation (INO) | payer MEDICARE, MEDICAID, SELFPAY ==
--- NOTE | 2021-12-03 15:46 | PC.NURSE ---
PT ARRIVED TO THE FLOOR AT THIS TIME
[2021-12-03 16:00] VITALS: BP 155/85; PULSE 90; RESP 18; TEMP 36.6; O2SAT 94
[2021-12-03 16:22] LABS: Coronavirus 19, PCR Not Detected (NotDetected); Influenza A, PCR Not Detected (NotDetected); Influenza B, PCR Not Detected (NotDetected)
[2021-12-03 17:44] LABS: POC Glucose,Bedside 231 (70-110)
[2021-12-03 18:59] VITALS: BMI 50.1
--- NOTE | 2021-12-03 19:01 | XR_ITS ---
PROCEDURE INFORMATION: Exam: XR Chest Exam date and time: 12/03/2021 7:30 PM Age: 51 years old Clinical indication: Shortness of breath; Additional info: Chf TECHNIQUE: Imaging protocol: XR of the chest. Views: 1 view. COMPARISON: CR XR CHEST PORTABLE 12/02/2021 8:41 AM, 11/27/2021 11:09 a.m. FINDINGS: Lungs: Degree of pulmonary vascular redistribution less in comparison to the previous study. Pleural spaces: Unremarkable. No pleural effusion. No pneumothorax. Heart/Mediastinum: Borderline cardiac enlargement. Findings most likely exaggerated due to patient positioning. Bones/joints: Unremarkable. IMPRESSION: Mild cardiomegaly. Mild changes of pulmonary venous congestion. Findings improve since 12/02/2021
--- NOTE | 2021-12-03 19:39 | HMH.HP ---
*Admission Date: 12/03/21 *Chief complaint: pneumonia and volume overload *History of present illness: Patient is a 51-year-old white male, well-known to me, my office earlier today with complaints of worsening dyspnea. He demonstrated labored breathing, overt wheezing, and overall worsening since his visit to the emergency room yesterday. Chest film in the ER suggested worsening pulmonary vascular congestion and bibasilar filtrate of process versus atelectasis. The patient does report a cough is productive. He does relay worsening edema. Patient has comorbid diabetes hypertension, and chronic pain. Given the patient's worsening shortness of breath, a broad breathing and audible wheezing elected to admit him for diuresis, bronchodilation, and treatment of his pneumonia. [facility] History Medical History: Reports:: Anxiety, Atrial Fibrillation, Congestive Heart Failure, Congenital Heart Disease, Coronary Artery Disease, Depression, Diabetes Mellitus Type 2, Gastroesophageal Reflux Disease(GERD), Hyperlipidemia, Hypertension, Internal Pacemaker, MRSA, Peripheral Artery Disease, Peripheral Vascular Disease, Renal Disease Denies:: Cancer, Diabetes Mellitus Type 1, Seizures *Have you ever received a pneumonia vaccine?: No *Have you received a flu vaccine this season?: No Other Surgeries: Yes: No Previous Surgery, Angiogram, Cardiac Catheterization, Cardiac Surgery, Colonoscopy, Pacemaker Amputation: No Fractures: Yes - *Social History Last grade of school completed: 9th or 10th Smoking Status: Current every day smoker Tobacco Type: smokeless tobacco # Packs/Day (cigarettes): 0 Alcohol Intake: never Alcohol Intake Frequency:: 3 or more drinks per day Substance Use Type: former substance user *Occupational Status:: disabled Housing: apartment Household Members: spouse, family *Travel in the last 8 weeks: None - Psychiatric History Pschychiatric History:: Reports:: Anxiety, Depression Family Hx:: No significant family history Review of Systems - Constitutional Reports weakness, Reports weight gain - Eyes Denies change in vision - ENT Denies abnormal hearing - *Cardiovascular Reports leg pain with activity, Reports shortness of breath, Reports shortness of breath with activity, Reports generalized swelling, Reports leg swelling, Reports leg sores, Reports shortness of breath when lying down, Reports shortness of breath causing sudden awakening, Reports foot swelling, Denies chest pain, Denies radiating jaw, neck or arm pain - *Respiratory Reports chest congestion, Reports cough, Reports shortness of breath, Reports shortness of breath with activity, Reports excessive phlegm production, Reports wheezing, Denies coughing up blood - *Gastrointestinal Denies abdominal pain - *Genitourinary Denies difficulty urinating - *Musculoskeletal Reports abnormal walking, Reports back pain, Reports muscle weakness - *Neurologic Denies behavioral changes - Psychiatric Reports abnormal sleep pattern, Reports anxiety - Endocrine Denies cold intolerance, Denies excessive sweating - Hematologic/Lymphatic Denies easy bleeding, Denies easy bruising - Allergic/Immunologic Reports wheezing Meds Home Medications Medication Instructions Recorded Confirmed Type aspirin 81 mg tablet,delayed 81 mg PO DAILY tab 10/27/17 12/03/21 History release cholecalciferol (vitamin D3) 1,250 1,250 mcg PO WEEKLY 01/18/21 12/03/21 History mcg (50,000 unit) capsule Doxazosin Mesylate [Cardura 4mg 2 mg PO BID 01/29/21 12/03/21 History Tab] Trazodone HCl 50 mg PO HS 03/08/21 12/03/21 History albuterol sulfate 90 mcg/actuation 2 puff INHALATION Q4-6H PRN #8.5 g 03/25/21 12/03/21 Rx aerosol inhaler Budesonide/Formoterol Fumarate 2 puff IH BID 04/02/21 12/03/21 History [Budesonide-Formoterol 160-4.5] cyclobenzaprine 10 mg tablet 10 mg PO BID PRN #30 tab 04/19/21 12/03/21 Rx lidocaine HCl 2 % mucosal solution 10 ml MUCOUS MEM BID PRN #100
[2021-12-03 20:00] VITALS: BP 165/85; PULSE 85; RESP 18; TEMP 36.9; O2SAT 92; O2SAT 97
[2021-12-03 22:29] LABS: POC Glucose,Bedside 274 (70-110)
[2021-12-03 22:45] VITALS: PULSE 90; PULSE 92; O2SAT 93
[2021-12-04 02:35] VITALS: PULSE 92; PULSE 93
[2021-12-04 04:00] VITALS: BP 180/79; PULSE 91; RESP 17; TEMP 36.8; O2SAT 96
[2021-12-04 06:28] VITALS: PULSE 92; PULSE 93; O2SAT 93
[2021-12-04 06:36] LABS: POC Glucose,Bedside 191 (70-110)
--- NOTE | 2021-12-04 07:02 | PC.NURSE ---
No acute changes. Pt has c/o pain in his legs and back. PRN pain meds administered, pt states favorable results. Pt has got into his wheelchair and wheeled himself to nurses station multiple times t/o shift. Call light within reach.
[2021-12-04 08:00] VITALS: BP 160/79; PULSE 96; RESP 20; TEMP 37.2; O2SAT 92; O2SAT 94
[2021-12-04 08:03] LABS: Basophils # 0.1 K/mm3 (0-0.2); Basophils % 0.4 % (0.1-2.0); Eosinophils # 0.2 K/mm3 (0.0-0.4); Eosinophils % 1.6 % (0.1-12.0); Hematocrit 31.6 % (42.0-52.0); Hemoglobin 10.1 g/dL (14.1-18.0); Lymphocytes # 1.1 K/mm3 (0.7-4.5); Lymphocytes % 10.5 % (10-50); Mean Corpuscular Hemoglobin 21.6 pg (27.0-31.2); Mean Corpuscular Volume 67.4 fl (80-94); Monocytes # 0.3 K/mm3 (0.1-1.0); Neutrophils % 84.5 % (37.0-80.0); Platelet Count 388 K/mm3 (142-424); Red Blood Count 4.69 M/mm3 (4.60-6.20); Red Cell Distribution Width 19.1 % (11.5-17.5); White Blood Count 10.6 K/mm3 (4.8-10.8)
[2021-12-04 08:15] LABS: Chloride 93 mmol/L (98-107)
[2021-12-04 08:16] LABS: Potassium 3.1 mmoL/L (3.5-5.1); Sodium 136 mmol/L (136-145)
[2021-12-04 08:18] LABS: Alanine Aminotransferase 36 U/L (12-78); Aspartate Amino Transferase 53 U/L (17-59); Blood Urea Nitrogen 30 mg/dl (9-20); Creatinine Clearance Estimated 61 mL/min (50-200); Estimated Glomerular Filt Rate 54 ml/min (>60); GFR (African American) 65 ML/MIN (>60)
[2021-12-04 08:19] LABS: Alkaline Phosphatase 245 U/L (38-126); Anion Gap 12.1 mEq/L (5-15); Bilirubin,Total 0.5 mg/dl (0.2-1.3); Calcium 9.1 mg/dl (8.4-10.2); Carbon Dioxide 34 mmol/L (22.0-30.0); Globulin 4.1 g/dL (1.3-3.2); Glucose 240 mg/dl (74-100); Total Protein,Serum 8.1 g/dl (6.3-8.2)
--- NOTE | 2021-12-04 08:39 | PC.NURSE ---
patient c/o not feeling good, requests FSBS check - 308, Lungs clear no wheezing or crackles noted; Temp 99.0 BP 160/79; will give morning meds and continue to monitor. Patient shows no s/s of acute distress at this time.
[2021-12-04 09:38] LABS: Magnesium 1.6 mg/dl (1.6-2.3)
--- NOTE | 2021-12-04 10:21 | P.CONPHA_ITS ---
[facility] Pharmacy VTE Monitoring - Patient Demographics Admission date: 12/04/21 Report Date: 12/04/21 Time: 10:21 Allergies/Adverse Reactions: Patient Allergies pregabalin [From Lyrica] Adverse Reaction (Verified 12/03/21 12:55) made skin crawl Height: 1.73 m Weight: 149.487 kg Patient Problems: Current Active Problems SOB (shortness of breath) (Chronic) Congestive heart failure (CHF) (Chronic) COPD (chronic obstructive pulmonary disease) (Chronic) Low back pain (Acute) Acute exacerbation of chronic obstructive airways disease (Acute) Obesity (Acute) Poorly controlled diabetes mellitus (Acute) Back pain (Acute) Renal insufficiency (Acute) Pneumonia (Acute) Acute and chronic respiratory failure (Acute) Community acquired pneumonia (Acute) Venous insufficiency (chronic) (peripheral) (Acute) Venous stasis dermatitis of both lower extremities (Acute) Peripheral edema (Acute) Generalized weakness (Acute) Dependent edema (Acute) Opacities of both lungs present on chest x-ray (Acute) Smoker (Chronic) Diabetes mellitus (Chronic) Dyspnea (Acute) Orthopnea (Acute) - VTE Risk Labs: VTE Related Lab Results Hgb 10.1 g/dL (14.1-18.0) L 12/04/21 07:04 Hct 31.6 % (42.0-52.0) L 12/04/21 07:04 Plt Count 388 K/mm3 (142-424) 12/04/21 07:04 BUN 30 mg/dl (9-20) H D 12/04/21 07:04 Creatinine 1.40 mg/dl (0.66-1.25) H D 12/04/21 07:04 Estimated Creat Clear 61 mL/min (50-200) 12/04/21 07:04 Was VTE Risk Assessment Performed: Yes VTE Risk Level: Low Risk Clinical Trial Participant: No - Prophylaxis VTE Prophylaxis Ordered?: Yes Types of VTE Prophylaxis: TEDS Knee High
[2021-12-04 10:28] VITALS: PULSE 94; PULSE 96; O2SAT 94
[2021-12-04 10:56] LABS: POC Glucose,Bedside 308 (70-110)
--- NOTE | 2021-12-04 11:18 | HMH.DCSUM ---
General - General Admission date:: 12/03/21 Discharge date: 12/04/21 HPI HPI: Patient is a 51-year-old white male, well-known to me, my office earlier today with complaints of worsening dyspnea. He demonstrated labored breathing, overt wheezing, and overall worsening since his visit to the emergency room yesterday. Chest film in the ER suggested worsening pulmonary vascular congestion and bibasilar filtrate of process versus atelectasis. The patient does report a cough is productive. He does relay worsening edema. Patient has comorbid diabetes hypertension, and chronic pain. Given the patient's worsening shortness of breath, a broad breathing and audible wheezing elected to admit him for diuresis, bronchodilation, and treatment of his pneumonia. Hospital Course Hospital Course: Patient was admitted for IV antibiotics, aggressive diuresis, bronchodilation, and steroids. Patient was seen yesterday following an ER visit before. Respiratory course was acutely worsening. Led to our decision to admit. Seen today the patient is much more clear, much less dyspnea, and wheezing/labored breathing have resolved. Chest films correlate with clinical improvement. Objective Vital signs: Temp Pulse Resp BP Pulse Ox 99.0 F 96 H 20 160/79 H 94 L 12/04/21 08:00 12/04/21 10:28 12/04/21 08:00 12/04/21 08:00 12/04/21 10:28 no acute distress, obese - *Routine HEENT Exam Head: Present: normocephalic Eye: Present: EOMI, PERRL ENT: Present: mucous membranes moist - *Routine Neck Exam Present: supple - *Routine Respiratory Exam Present: rhonchi, diminished air movement. Absent: prolonged expiratory phase, respiratory distress, wheezes, crackles - *Routine Cardiovascular Exam Present: RRR - *Routine Abdominal Exam Present: soft, normoactive bowel sounds. Absent: tenderness - *Routine Extremities Exam Present: edema - *Routine Skin Exam Present: lesions. Absent: jaundice Results Labs on day of discharge: Labs from last 24 hours 12/04/21 12/04/21 12/04/21 08:19 07:04 07:04 WBC RBC Hgb Hct MCV MCH MCHC RDW Plt Count MPV Neut % (Auto) Lymph % (Auto) [place] % (Auto) Eos % (Auto) Baso % (Auto) Neut # (Auto) Lymph # (Auto) [place] # (Auto) Eos # (Auto) Baso # (Auto) Sodium 136 Potassium 3.1 L Chloride 93 L Carbon Dioxide 34 H Anion Gap 12.1 BUN 30 H D Creatinine 1.40 H D Estimated Creat Clear 61 Estimated GFR 54 L Est GFR ( Amer) 65 D Glucose 240 H POC Glucose 308 H* Calcium 9.1 Magnesium 1.6 D Total Bilirubin 0.5 AST 53 ALT 36 Alkaline Phosphatase 245 H Total Protein 8.1 Albumin 4.0 Globulin 4.1 H Albumin/Globulin Ratio 1.0 L SARS-CoV-2 (PCR) Influenza A Untype (PCR) Influenza Type B (PCR) 12/04/21 12/04/21 12/03/21 07:04 05:53 21:48 WBC 10.6 RBC 4.69 Hgb 10.1 L Hct 31.6 L MCV 67.4 L MCH 21.6 L MCHC 32.0 RDW 19.1 H Plt Count 388 MPV 8.0 Neut % (Auto) 84.5 H Lymph % (Auto) 10.5 [place] % (Auto) 3.0 Eos % (Auto) 1.6 Baso % (Auto) 0.4 Neut # (Auto) 9.0 H Lymph # (Auto) 1.1 [place] # (Auto) 0.3 Eos # (Auto) 0.2 Baso # (Auto) 0.1 Sodium Potassium Chloride Carbon Dioxide Anion Gap BUN Creatinine Estimated Creat Clear Estimated GFR Est GFR ( Amer) Glucose POC Glucose 191 H 274 H Calcium Magnesium Total Bilirubin AST ALT Alkaline Phosphatase Total Protein Albumin Globulin Albumin/Globulin Ratio SARS-CoV-2 (PCR) Influenza A Untype (PCR) Influenza Type B (PCR) 12/03/21 12/03/21 16:33 16:16 WBC RBC Hgb Hct MCV MCH MCHC RDW Plt Count MPV Neut % (Auto) Lymph % (Auto) [place] % (Auto) Eos % (Auto) Baso % (Auto) Neut # (Auto)
--- NOTE | 2021-12-06 14:13 | CARE MANAGER ---
Contacted patient related to follow up from hospital discharge. Patient states that he has appointment to follow up in a a week and a half. He states they told him that he couldn't pick up attendant his Lorazepam or pain medication. Instructed patient to contact MD office with issues regarding this. PRINCESS Sanches
[2021-12-06 17:23] LABS: Calcium, Ionized 4.5 mg/dL (4.5-5.6)
== END 2021-12-04 11:30 | disposition home or self-care (01) ==
PROVIDERS: Admitting Provider Family Medicine; PCP Family Medicine; Visit Provider Family Medicine
DX: I50.9 Heart failure, unspecified (principal); J18.9 Pneumonia, unspecified organism; Z95.0 Presence of cardiac pacemaker; I48.20 Chronic atrial fibrillation, unspecified; I25.10 Atherosclerotic heart disease of native coronary artery without angina pectoris; L21.9 Seborrheic dermatitis, unspecified; E78.5 Hyperlipidemia, unspecified; F17.210 Nicotine dependence, cigarettes, uncomplicated; E11.9 Type 2 diabetes mellitus without complications; Z79.4 Long term (current) use of insulin; Z79.899 Other long term (current) drug therapy; J96.21 Acute and chronic respiratory failure with hypoxia; R06.01 Orthopnea; I87.2 Venous insufficiency (chronic) (peripheral); I11.0 Hypertensive heart disease with heart failure
CPT/HCPCS: G0378; G0379; 36415; 71045; 80053; 82330; 82962; 83735; 85025; 94640; C9803; J0456; J0696; U0003; U0005

== ENCOUNTER 2021-12-05 21:23 | Emergency (ER) | payer MEDICARE, MEDICAID, SELFPAY ==
[2021-12-05 21:23] VITALS: BP 128/63; PULSE 80; RESP 20; TEMP 36.7; O2SAT 97; BMI 45.6
--- NOTE | 2021-12-05 21:34 | HMH.EDGENADL ---
ED Disposition Clinical Impression: Bilateral leg cramps Disposition: Home, Self-Care Condition on Discharge: Good Instructions: DI for Acute Pain -- Adult Additional Instructions: If you cannot tolerate your potassium tablets you can dissolve them to take the medication or consider discussing liquid options with your primary care. Prescriptions: methocarbamoL [Methocarbamol] 750 mg PO TID PRN 5 Days #15 tab PRN Reason: spasm Transmission Status: [facility] Referrals: Bert Villagomez MD [Primary Care Provider] - - Critical Care Critical Care Time: No Attestation: On 12/05/21, the high probability of a clinically significant, sudden or life threatening deterioration of the following system(s) required my full and direct attention, intervention and personal management. The time I documented below is in addition to time spent performing reported procedures but includes the following listed in this critical care notation. Medical Decision Making - Medical Records Medical records reviewed: Yes: I reviewed the patient's medical records. - Fahad Inquiry Pt receiving controlled substance: No Vital Signs: 12/05/21 21:23 12/05/21 22:00 12/05/21 22:30 Temperature 98.0 F Temperature Source Oral Pulse Rate 77 76 Pulse Rate [Right] 80 Respiratory Rate 20 Blood Pressure 118/60 100/57 L Blood Pressure [Right Arm] 128/63 Blood Pressure Mean [Right Arm] 84 Blood Pressure Source [Right Arm] Automatic Cuff 02 Sat by Pulse Oximetry 97 95 98 Oxygen Delivery Method Room Air Room Air Room Air 12/05/21 22:45 Temperature 98.1 F Temperature Source Oral Pulse Rate 82 Pulse Rate [Right] Respiratory Rate 20 Blood Pressure 111/59 L Blood Pressure [Right Arm] Blood Pressure Mean [Right Arm] Blood Pressure Source [Right Arm] 02 Sat by Pulse Oximetry Oxygen Delivery Method Room Air - Lab Data Lab Results 12/05/21 21:48: Sodium 137, Potassium 3.5, Chloride 95 L, Carbon Dioxide 32 H, Anion Gap 13.5, BUN 36 H, Creatinine 1.50 H, Estimated Creat Clear 57, Estimated GFR 50 L, Est GFR ( Amer) 60, Glucose 202 H, Calcium 9.2 Result diagrams: 12/05/21 21:48 Orders (Tests/Meds): ED MEDICATIONS Discontinued Medications Generic Name Dose Route Start Last Admin Trade Name Freq PRN Reason Stop Dose Admin Methocarbamol 1,000 mg 12/06/21 21:42 Methocarbamol 500mg Tablet PO 12/06/21 21:43 ONCE ONE Methocarbamol 1,000 mg 12/05/21 21:42 12/05/21 22:04 Methocarbamol 500mg Tablet PO 12/05/21 21:43 1,000 mg ONCE ONE Administration Potassium Chloride 40 meq 12/05/21 22:23 12/05/21 22:36 Potassium Chloride 20meq/15ml Udc PO 12/05/21 22:24 40 meq ONCE ONE Administration Medical Decision Narrative: 51-year-old male presents with recurrent cramping in the setting of diabetic and CHF on multiple diuretics. Patient has not been compliant with his potassium with BMP records as low normal 3.5. He was given 40 mEq of oral liquid and will be instructed to dissolve his tablets that he cannot tolerate the size of them. He was given Robaxin 1 g both given a prescription of Robaxin and an injection of Toradol 30 mg. Discharged home in good condition. General Adult HPI - General Stated complaint: Bilateral leg pain Time Seen by Provider: 12/05/21 21:34 Mode of Arrival: Ambulatory Source of Information: Patient Limitations: No Limitations - History of Present Illness HPI narrative: 51-year-old male well-known to department who presents for continued chronic bilateral leg pain with cramping. Patient has not been taking his potassium because he does not tolerate the large pills has been started on aggressive diuretic therapy with addition of a second medication. He has since been cramping significantly in his calves. He otherwise has no complaints today. States that that it is persistent and keeping him awake. Denies fevers chills or body aches.
[2021-12-05 22:00] VITALS: BP 118/60; PULSE 77; O2SAT 95
[2021-12-05 22:05] LABS: Chloride 95 mmol/L (98-107); Potassium 3.5 mmoL/L (3.5-5.1); Sodium 137 mmol/L (136-145)
[2021-12-05 22:08] LABS: Blood Urea Nitrogen 36 mg/dl (9-20); Creatinine Clearance Estimated 57 mL/min (50-200); Estimated Glomerular Filt Rate 50 ml/min (>60); GFR (African American) 60 ML/MIN (>60)
--- NOTE | 2021-12-05 22:08 | PC.NURSE ---
water & ice chips given to pt & his family member in room
[2021-12-05 22:09] LABS: Anion Gap 13.5 mEq/L (5-15); Calcium 9.2 mg/dl (8.4-10.2); Carbon Dioxide 32 mmol/L (22.0-30.0); Glucose 202 mg/dl (74-100)
[2021-12-05 22:30] VITALS: BP 100/57; PULSE 76; O2SAT 98
[2021-12-05 22:45] VITALS: BP 111/59; PULSE 82; RESP 20; TEMP 36.7; O2SAT 97
== END 2021-12-05 23:14 | disposition home or self-care (01) ==
PROVIDERS: Emergency Provider Student in an Organized Health Care Education/Training Program; PCP Family Medicine
DX: R25.2 Cramp and spasm (principal); M79.605 Pain in left leg; M79.604 Pain in right leg
CPT/HCPCS: 80048; 96372; 99212; G0463

== ENCOUNTER 2021-12-07 17:10 | Emergency (ER) | payer MEDICARE, MEDICAID, SELFPAY ==
[2021-12-07 17:11] VITALS: BP 155/68; PULSE 105; RESP 22; TEMP 36.9; O2SAT 96; BMI 45.6
[2021-12-07 17:19] VITALS: BP 155/68; PULSE 103; RESP 20; O2SAT 96
[2021-12-07 17:31] VITALS: BP 148/67; PULSE 101; RESP 20; O2SAT 94
--- NOTE | 2021-12-07 17:43 | HMH.EDEXTP ---
ED Disposition Clinical Impression: Bilateral lower leg cellulitis Disposition: Home, Self-Care Condition on Discharge: Good Instructions: DI for Cellulitis -- Adult Additional Instructions: follow up Dr Mendoza in office tomorrow, return for worse Prescriptions: Cefdinir [Omnicef 300mg Capsule] 300 mg PO BID #20 cap Transmission Status: Pending to [facility] Referrals: Bert Mendoza MD [Primary Care Provider] - - Critical Care Critical Care Time: No Attestation: On 12/07/21, the high probability of a clinically significant, sudden or life threatening deterioration of the following system(s) required my full and direct attention, intervention and personal management. The time I documented below is in addition to time spent performing reported procedures but includes the following listed in this critical care notation. Medical Decision Making - Medical Records Medical records reviewed: Yes: I reviewed the patient's medical records. - Fahad Inquiry Pt receiving controlled substance: No Vital Signs: 12/07/21 17:11 12/07/21 17:19 12/07/21 17:31 Temperature 98.5 F Temperature Source Oral Pulse Rate 103 H 101 H Pulse Rate [Radial] 105 H Respiratory Rate 22 20 20 Blood Pressure 155/68 H 148/67 H Blood Pressure [Right Arm] 155/68 H Blood Pressure Mean 87 91 Blood Pressure Mean [Right Arm] 97 Blood Pressure Position [Right Arm] Sitting 02 Sat by Pulse Oximetry 96 96 94 L Oxygen Delivery Method Room Air - Lab Data Lab Results 12/07/21 17:45: WBC 9.6, RBC 4.70, Hgb 9.9 L, Hct 31.8 L, MCV 67.7 L, MCH 21.0 L, MCHC 31.0 L, RDW 18.5 H, Plt Count 476 H, MPV 7.9, Neut % (Auto) 71.5, Lymph % (Auto) 17.4, [place] % (Auto) 5.7, Eos % (Auto) 5.0, Baso % (Auto) 0.4, Neut # (Auto) 6.9, Lymph # (Auto) 1.7, [place] # (Auto) 0.5, Eos # (Auto) 0.5 H, Baso # (Auto) 0.0 12/07/21 17:45: Sodium 136, Potassium 3.9, Chloride 102, Carbon Dioxide 28, Anion Gap 9.9, BUN 19 D, Creatinine 1.10 D, Estimated Creat Clear 78, Estimated GFR 71, Est GFR ( Amer) 86 D, Glucose 263 H, Calcium 8.5, Total Bilirubin 0.3, AST 44, ALT 40, Alkaline Phosphatase 207 H, Total Protein 7.3, Albumin 3.7, Globulin 3.6 H, Albumin/Globulin Ratio 1.0 L 12/07/21 17:45: Lactate 1.3 12/07/21 17:45: NT-Pro-B Natriuret Pep 48.3 Result diagrams: 12/07/21 17:45 12/07/21 17:45 Orders (Tests/Meds): ED MEDICATIONS Discontinued Medications Generic Name Dose Route Start Last Admin Trade Name Freq PRN Reason Stop Dose Admin Hydromorphone HCl 0.5 mg 12/07/21 17:34 12/07/21 17:50 Hydromorphone 2mg/Ml Syringe IV 12/07/21 17:35 0.5 mg ONCE ONE Administration Hydromorphone HCl 0.5 mg 12/07/21 18:17 12/07/21 18:18 Hydromorphone 2mg/Ml Syringe IV 12/07/21 18:18 0.5 mg ONCE ONE Administration ORDERS Category Date Time Status Blood Culture Stat Micro 12/07/21 17:30 Ordered - Physician Consults Physician Consulted: dr mendoza Time: 19:21 (discussed with dr mendoza recommends iv dose here and outpt rx and f/u in office tomorrow, pt agreed to plan) Extremity Problem HPI - General Chief complaint: Extremity Problem,Nontraumatic Stated complaint: Leg Red, Swollen Leaking Fluid Time Seen by Provider: 12/07/21 17:43 Mode of Arrival: Wheelchair Limitations: No Limitations Description of Symptoms (Recalled from ER Triage Doc. by RN): TO ED PER PVT CAR WITH C/O REDNESS AND SWELLING MIKAEL LOWER EXTREMITIES STARTING TODAY. PT STATES HE CALLED THE CLINIC AND TOLD TO COME TO ED FOR EVAL. - History of Present Illness HPI Narrative: mikael le redness and pain since this morning h/o chronic edema and chf MD Complaint: extremity pain, extremity swelling Onset (ago): hour(s) Consistency: constant Location: left, right, lower extremity Quality: constant Radiation: proximal Relieving factors: nothing Exacerbating factors: weight bearing Associated symptoms: denies other symptoms - Related Data Home Medications
[2021-12-07 18:16] LABS: Chloride 102 mmol/L (98-107); Potassium 3.9 mmoL/L (3.5-5.1); Sodium 136 mmol/L (136-145)
[2021-12-07 18:19] LABS: Alanine Aminotransferase 40 U/L (12-78); Albumin Level 3.7 g/dl (3.5-5.0); Alkaline Phosphatase 207 U/L (38-126); Anion Gap 9.9 mEq/L (5-15); Aspartate Amino Transferase 44 U/L (17-59); Bilirubin,Total 0.3 mg/dl (0.2-1.3); Blood Urea Nitrogen 19 mg/dl (9-20); Calcium 8.5 mg/dl (8.4-10.2); Carbon Dioxide 28 mmol/L (22.0-30.0); Creatinine Clearance Estimated 78 mL/min (50-200); Estimated Glomerular Filt Rate 71 ml/min (>60); GFR (African American) 86 ML/MIN (>60); Globulin 3.6 g/dL (1.3-3.2); Glucose 263 mg/dl (74-100); Total Protein,Serum 7.3 g/dl (6.3-8.2)
[2021-12-07 18:20] LABS: Lactic Acid 1.3 mmol/L (0.7-2.1)
[2021-12-07 18:28] LABS: NT Pro Brain Natriuretic Pep. 48.3 pg/mL (0-125)
[2021-12-07 18:35] LABS: Basophils % 0.4 % (0.1-2.0); Eosinophils # 0.5 K/mm3 (0.0-0.4); Hematocrit 31.8 % (42.0-52.0); Hemoglobin 9.9 g/dL (14.1-18.0); Lymphocytes # 1.7 K/mm3 (0.7-4.5); Lymphocytes % 17.4 % (10-50); Mean Corpuscular Volume 67.7 fl (80-94); Mean Platelet Volume 7.9 fl (7.4-10.4); Monocytes # 0.5 K/mm3 (0.1-1.0); Monocytes % 5.7 % (1.7-9.3); Neutrophils # 6.9 K/mm3 (1.8-7.8); Neutrophils % 71.5 % (37.0-80.0); Platelet Count 476 K/mm3 (142-424); Red Cell Distribution Width 18.5 % (11.5-17.5); White Blood Count 9.6 K/mm3 (4.8-10.8)
[2021-12-07 19:44] VITALS: BP 148/67; PULSE 98; RESP 18; TEMP 36.8; O2SAT 99
== END 2021-12-07 19:47 | disposition home or self-care (01) ==
PROVIDERS: Emergency Provider Emergency Medicine; PCP Family Medicine
DX: L03.116 Cellulitis of left lower limb (principal); L03.115 Cellulitis of right lower limb; I11.0 Hypertensive heart disease with heart failure; I50.9 Heart failure, unspecified; N28.9 Disorder of kidney and ureter, unspecified; I25.10 Atherosclerotic heart disease of native coronary artery without angina pectoris; I48.91 Unspecified atrial fibrillation; I73.9 Peripheral vascular disease, unspecified; K21.9 Gastro-esophageal reflux disease without esophagitis; E78.5 Hyperlipidemia, unspecified; Q24.9 Congenital malformation of heart, unspecified; F32.A Depression, unspecified; F41.9 Anxiety disorder, unspecified; F17.290 Nicotine dependence, other tobacco product, uncomplicated; Z79.1 Long term (current) use of non-steroidal anti-inflammatories (NSAID); Z79.4 Long term (current) use of insulin; Z79.52 Long term (current) use of systemic steroids; Z79.82 Long term (current) use of aspirin; Z79.84 Long term (current) use of oral hypoglycemic drugs; Z79.899 Other long term (current) drug therapy; Z88.8 Allergy status to other drugs, medicaments and biological substances; Z95.0 Presence of cardiac pacemaker
CPT/HCPCS: 80053; 83605; 83880; 85025; 96374; 96375; 96376; 99285; J0696

== ENCOUNTER 2021-12-08 15:23 | Emergency (ER) | payer MEDICARE, MEDICAID, SELFPAY ==
[2021-12-08 15:24] VITALS: BP 142/78; PULSE 113; RESP 24; TEMP 37.4; O2SAT 94; BMI 45.6
--- NOTE | 2021-12-08 15:32 | XR_ITS ---
FINAL REPORT CLINICAL HISTORY: SOB COMPARISON: December 03, 2021 FINDINGS: Two views of the chest were obtained. The heart size and pulmonary vascularity are within normal limits. The mediastinum is normal. There is mild bibasilar atelectasis. There is partial improvement in the aeration of the left lung base. There is no pneumothorax. The bony thorax is intact. IMPRESSION: Mild bibasilar atelectasis with partially improved aeration of the left lung base. Reviewed, Interpreted and Dictated by De Velez III, MD Transcribed by Guy Wolff Authenticated and [facility]
--- NOTE | 2021-12-08 15:39 | PC.NURSE ---
pt to radiology by wheelchair with optoelectronic technician
--- NOTE | 2021-12-08 15:40 | HMH.EDGENADL ---
ED Disposition Clinical Impression: COPD exacerbation Chest pain Qualifiers: Chest pain type: unspecified Qualified Code(s): R07.9 - Chest pain, unspecified Disposition: Home, Self-Care Condition on Discharge: Good Instructions: DI for Shortness of Breath, DI for Chronic Obstructive Pulmonary Disease, DI for Chest Pain Additional Instructions: Prednisone as prescribed. Follow-up with Dr. Villagomez tomorrow in the office to schedule. Additional instructions for SHORTNESS OF BREATH: See your physician as soon as possible for further evaluation. Return immediately if worsening shortness of breath or if vomiting, chest pain, fever, coughing of blood, or passing out. Additional instructions for CHEST PAIN: See your physician as soon as possible for further evaluation. Return immediately if worsening chest pain, vomiting, shortness of breath, fever, coughing of blood. Prescriptions: predniSONE [Prednisone 20mg Tab] 20 mg PO DAILY #5 tab Transmission Status: [facility] Referrals: Bert Villagomez MD [Primary Care Provider] - - Critical Care Critical Care Time: No Attestation: On 12/08/21, the high probability of a clinically significant, sudden or life threatening deterioration of the following system(s) required my full and direct attention, intervention and personal management. The time I documented below is in addition to time spent performing reported procedures but includes the following listed in this critical care notation. Medical Decision Making - Medical Records Medical records reviewed: Yes: I reviewed the patient's medical records. MR Comment: CTA performed on 11/11/2021. Negative for PE. Reviewed record of that emergency department visit, presentation was the same as today. - Fahad Inquiry Pt receiving controlled substance: No Vital Signs: 12/08/21 15:24 12/08/21 16:23 12/08/21 16:30 Temperature 99.3 F Temperature Source Oral Pulse Rate 110 H 111 H Pulse Rate [Radial] 113 H Respiratory Rate 24 Blood Pressure 136/65 124/66 Blood Pressure [Right Arm] 142/78 H Blood Pressure Mean 88 80 Blood Pressure Mean [Right Arm] 99 Blood Pressure Position [Right Arm] Sitting 02 Sat by Pulse Oximetry 94 L 97 97 Oxygen Delivery Method Room Air 12/08/21 17:00 Temperature Temperature Source Pulse Rate 98 H Pulse Rate [Radial] Respiratory Rate Blood Pressure Blood Pressure [Right Arm] Blood Pressure Mean Blood Pressure Mean [Right Arm] Blood Pressure Position [Right Arm] 02 Sat by Pulse Oximetry Oxygen Delivery Method - Lab Data Lab Results 12/08/21 16:00: WBC 8.0, RBC 4.52 L, Hgb 9.7 L, Hct 31.1 L, MCV 68.8 L, MCH 21.6 L, MCHC 31.3 L, RDW 18.8 H, Plt Count 457 H, MPV 7.8, Neut % (Auto) 72.7, Lymph % (Auto) 15.1, [place] % (Auto) 5.7, Eos % (Auto) 5.7, Baso % (Auto) 0.9, Neut # (Auto) 5.8, Lymph # (Auto) 1.2, [place] # (Auto) 0.5, Eos # (Auto) 0.5 H, Baso # (Auto) 0.1 12/08/21 16:00: Sodium 136, Potassium 4.0, Chloride 102, Carbon Dioxide 26, Anion Gap 12.0, BUN 21 H, Creatinine 1.10, Estimated Creat Clear 78, Estimated GFR 71, Est GFR ( Amer) 86, Glucose 350 H D, Calcium 8.3 L, Total Bilirubin < 0.1 L, AST 37, ALT 38, Alkaline Phosphatase 211 H, Troponin I < 0.01, NT-Pro-B Natriuret Pep 38.9, Total Protein 6.9, Albumin 3.5, Globulin 3.4 H, Albumin/Globulin Ratio 1.0 L Result diagrams: 12/08/21 16:00 12/08/21 16:00 Orders (Tests/Meds): ED MEDICATIONS Generic Name Dose Route Start Last Admin Trade Name Freq PRN Reason Stop Dose Admin Nitroglycerin 0.4 mg 12/08/21 16:25 12/08/21 16:25 Nitroglycerin 0.4mg Sl Tablet SL 01/07/22 16:24 0.4 mg [id number] PRN Administration Chest Pain Discontinued Medications Generic Name Dose Route Start Last Admin Trade Name Freq PRN Reason Stop Dose Admin Acetaminophen 650 mg 12/08/21 16:02 Acetaminophen 325mg Tab PO 12/08/21 16:03 ONCE ONE Albuterol/Ipratropium 3
--- NOTE | 2021-12-08 15:43 | PC.NURSE ---
MIRTHA CARLISLE at speaking with patient
--- NOTE | 2021-12-08 16:00 | PC.NURSE ---
pt placed on 2 liters of o2 NC per ER .
--- NOTE | 2021-12-08 16:07 | ECG_ITS ---
APPROVED REPORT Exam: Resting ECG HR:107 bpm ECG Measurements Heart Rate 107 AXES SC 154 P 73 QRSd 109 QRS 74 QT 335 T 38 QTc 398 Conclusion SINUS TACHYCARDIA ABNORMAL RHYTHM ECG UNCONFIRMED REPORT Electronically signed by : Cameron Kohli MD 12/10/2021 17:46:02
[2021-12-08 16:13] LABS: Basophils # 0.1 K/mm3 (0-0.2); Basophils % 0.9 % (0.1-2.0); Eosinophils # 0.5 K/mm3 (0.0-0.4); Eosinophils % 5.7 % (0.1-12.0); Hematocrit 31.1 % (42.0-52.0); Hemoglobin 9.7 g/dL (14.1-18.0); Lymphocytes # 1.2 K/mm3 (0.7-4.5); Lymphocytes % 15.1 % (10-50); Mean Corpuscular HGB Conc 31.3 g/dL (31.8-35.4); Mean Corpuscular Hemoglobin 21.6 pg (27.0-31.2); Mean Corpuscular Volume 68.8 fl (80-94); Mean Platelet Volume 7.8 fl (7.4-10.4); Monocytes # 0.5 K/mm3 (0.1-1.0); Monocytes % 5.7 % (1.7-9.3); Neutrophils # 5.8 K/mm3 (1.8-7.8); Neutrophils % 72.7 % (37.0-80.0); Platelet Count 457 K/mm3 (142-424); Red Blood Count 4.52 M/mm3 (4.60-6.20); Red Cell Distribution Width 18.8 % (11.5-17.5)
[2021-12-08 16:17] LABS: Alanine Aminotransferase 38 U/L (12-78); Albumin Level 3.5 g/dl (3.5-5.0); Alkaline Phosphatase 211 U/L (38-126); Aspartate Amino Transferase 37 U/L (17-59); Blood Urea Nitrogen 21 mg/dl (9-20); Calcium 8.3 mg/dl (8.4-10.2); Carbon Dioxide 26 mmol/L (22.0-30.0); Chloride 102 mmol/L (98-107); Creatinine Clearance Estimated 78 mL/min (50-200); Estimated Glomerular Filt Rate 71 ml/min (>60); GFR (African American) 86 ML/MIN (>60); Globulin 3.4 g/dL (1.3-3.2); Glucose 350 mg/dl (74-100); Sodium 136 mmol/L (136-145); Total Protein,Serum 6.9 g/dl (6.3-8.2)
--- NOTE | 2021-12-08 16:19 | PC.NURSE ---
pt sitting up on side of the bed looking out into Nurses station
[2021-12-08 16:20] LABS: Bilirubin,Total < 0.1 mg/dl (0.2-1.3)
[2021-12-08 16:23] VITALS: BP 136/65; PULSE 110; O2SAT 97
[2021-12-08 16:30] VITALS: BP 124/66; PULSE 111; O2SAT 97
[2021-12-08 16:30] LABS: NT Pro Brain Natriuretic Pep. 38.9 pg/mL (0-125)
[2021-12-08 16:32] LABS: Troponin I < 0.01 ng/ml (0.00-0.034)
[2021-12-08 17:00] VITALS: PULSE 104; PULSE 98
[2021-12-08 17:57] VITALS: BP 119/60; PULSE 94; RESP 18; TEMP 36.9; O2SAT 97
== END 2021-12-08 17:58 | disposition home or self-care (01) ==
PROVIDERS: Emergency Provider Emergency Medicine; PCP Family Medicine
DX: J44.1 Chronic obstructive pulmonary disease with (acute) exacerbation (principal); R07.89 Other chest pain; I10 Essential (primary) hypertension
CPT/HCPCS: 71046; 80053; 83880; 84484; 85025; 93005; 96374; 99284

== ENCOUNTER 2021-12-13 16:15 | Emergency (ER) | payer MEDICARE, MEDICAID, SELFPAY ==
[2021-12-13 17:53] VITALS: BP 179/69; PULSE 79; RESP 14; TEMP 36.6; O2SAT 97; BMI 45.6
--- NOTE | 2021-12-13 18:31 | HMH.EDGENADL ---
ED Disposition Clinical Impression: Chronic venous stasis dermatitis of both lower extremities Disposition: Home, Self-Care Condition on Discharge: Good Instructions: DI for Chronic Pain -- Adult Referrals: Bert Villagomez MD [Primary Care Provider] - - Critical Care Critical Care Time: No Attestation: On 12/13/21, the high probability of a clinically significant, sudden or life threatening deterioration of the following system(s) required my full and direct attention, intervention and personal management. The time I documented below is in addition to time spent performing reported procedures but includes the following listed in this critical care notation. Medical Decision Making - Medical Records Medical records reviewed: Yes: I reviewed the patient's medical records. - Fahad Inquiry Pt receiving controlled substance: Yes Fahad was queried for this patient: Yes Reference #:: [id number] Risks and benefits of using a controlled substance: were discussed with pt by me Vital Signs: 12/13/21 17:53 Temperature 97.9 F Temperature Source Oral Pulse Rate [Left Radial] 79 Respiratory Rate 14 Blood Pressure [Left Arm] 179/69 H Blood Pressure Mean [Left Arm] 105 Blood Pressure Source [Left Arm] Automatic Cuff Blood Pressure Position [Left Arm] Sitting 02 Sat by Pulse Oximetry 97 Oxygen Delivery Method Room Air Orders (Tests/Meds): ED MEDICATIONS Discontinued Medications Generic Name Dose Route Start Last Admin Trade Name Jeremy PRN Reason Stop Dose Admin Hydrocodone Bitart/Acetaminophen 1 tab 12/13/21 18:11 12/13/21 18:36 Hydrocodone/Apap 5/325 Mg Tablet PO 12/13/21 18:12 1 tab ONCE ONE Administration Diphenhydramine HCl 25 mg 12/13/21 18:11 12/13/21 18:36 Diphenhydramine 25mg Capsule PO 12/13/21 18:12 25 mg ONCE ONE Administration - Reevaluation(s) Time: 18:38 Reevaluation #1: On reevaluation, patient is feeling better. Patient was instructed to take his home medications. Follow-up with PCP in 48 hours. Given strict return precautions. Verbalized understanding. Medical Decision Narrative: Is a 51-year-old male presenting with some chronic edema and pain in the legs. Patient is currently receiving chronic pain medications from primary care physician. Symptoms are consistent with acute exacerbation of chronic pain. Patient shows no evidence of respiratory distress or hypoxia. Patient be treated symptomatically in the emergency department. Reevaluated. General Adult HPI - General Chief complaint: PAIN Stated complaint: AO12/13 fall, back pain, legs swelling, painfun, Time Seen by Provider: 12/13/21 17:55 Mode of Arrival: Wheelchair Limitations: No Limitations Description of Symptoms (Recalled from ER Triage Doc. by RN): Pt c/o left leg pain - History of Present Illness HPI narrative: This is a 51-year-old male presented to the emergency department with some leg pain. The patient does have some chronic pain issues. He has chronic wounds on his legs secondary to dependent edema. Patient states that he has been taking his medications. He has been itching his legs quite a bit because they bother him. He broke the skin on the left leg and a small area that started bleeding. Is been complaining of pain in the area since then. Denies any other trauma. She is not having any headache or change in vision. No focal weakness. No chest pain or shortness of breath. Abdominal pain or vomiting. No diarrhea. - Related Data Home Medications Medication Instructions Recorded Confirmed aspirin 81 mg tablet,delayed 81 mg PO DAILY tab 10/27/17 12/13/21 release cholecalciferol (vitamin D3) 1,250 1,250 mcg PO WEEKLY 01/18/21 12/13/21 mcg (50,000 unit) capsule Doxazosin Mesylate [Cardura 4mg 2 mg PO BID 01/29/21 12/13/21 Tab] Trazodone HCl 50 mg PO HS 03/08/21 12/13/21 Budesonide/Formoterol Fumarate 2 puff IH BID 04/02/21 12/13/21 [Budesonide-Formoterol 160-4.
[2021-12-13 18:56] VITALS: BP 151/72; PULSE 77; RESP 16; TEMP 36.6; O2SAT 98
== END 2021-12-13 18:57 | disposition home or self-care (01) ==
PROVIDERS: Emergency Provider Emergency Medicine; PCP Family Medicine
DX: I87.2 Venous insufficiency (chronic) (peripheral) (principal); R60.9 Edema, unspecified; M79.604 Pain in right leg; M79.605 Pain in left leg; Z79.891 Long term (current) use of opiate analgesic; G89.29 Other chronic pain; L29.8 Other pruritus; F41.9 Anxiety disorder, unspecified; I48.91 Unspecified atrial fibrillation; I50.9 Heart failure, unspecified; I25.10 Atherosclerotic heart disease of native coronary artery without angina pectoris; F32.A Depression, unspecified; E11.9 Type 2 diabetes mellitus without complications; K21.9 Gastro-esophageal reflux disease without esophagitis; E78.5 Hyperlipidemia, unspecified; Z72.0 Tobacco use
CPT/HCPCS: 99282

== ENCOUNTER 2021-12-15 02:06 | Emergency (ER) | payer MEDICARE, MEDICAID, SELFPAY ==
[2021-12-15 02:10] VITALS: BP 140/100; PULSE 100; RESP 20; TEMP 37.2; O2SAT 99; BMI 45.6
--- NOTE | 2021-12-15 03:01 | HMH.EDGENADL ---
ED Disposition Clinical Impression: Bilateral lower leg cellulitis Lumbar contusion Qualifiers: Encounter type: initial encounter Qualified Code(s): S30.0XXA - Contusion of lower back and pelvis, initial encounter Disposition: Home, Self-Care Condition on Discharge: Good Instructions: DI for Low Back Pain Additional Instructions: use routine meds Referrals: Bert Villagomez MD [Primary Care Provider] - - Critical Care Critical Care Time: No Attestation: On 12/15/21, the high probability of a clinically significant, sudden or life threatening deterioration of the following system(s) required my full and direct attention, intervention and personal management. The time I documented below is in addition to time spent performing reported procedures but includes the following listed in this critical care notation. Medical Decision Making - Medical Records Medical records reviewed: Yes: I reviewed the patient's medical records. - Fahad Inquiry Pt receiving controlled substance: No Vital Signs: 12/15/21 02:10 Temperature 99.0 F Temperature Source Oral Pulse Rate [Right] 100 H Respiratory Rate 20 Blood Pressure [Right Arm] 140/100 H Blood Pressure Mean [Right Arm] 113 Blood Pressure Source [Right Arm] Automatic Cuff 02 Sat by Pulse Oximetry 99 Oxygen Delivery Method Room Air - Lab Data Lab results reviewed: Yes: I reviewed the patient's lab results. Lab Results 12/15/21 03:40: WBC 7.9, RBC 4.68, Hgb 9.8 L, Hct 32.8 L, MCV 70.0 L, MCH 20.9 L, MCHC 29.8 L, RDW 18.5 H, Plt Count 421, MPV 8.1, Neut % (Auto) 69.6, Lymph % (Auto) 18.4, [place] % (Auto) 6.7, Eos % (Auto) 4.2, Baso % (Auto) 1.1, Neut # (Auto) 5.5, Lymph # (Auto) 1.4, [place] # (Auto) 0.5, Eos # (Auto) 0.3, Baso # (Auto) 0.1 12/15/21 03:40: Sodium 141, Potassium 3.6, Chloride 108 H, Carbon Dioxide 29, Anion Gap 7.6, BUN 16, Creatinine 1.20, Estimated Creat Clear 71, Estimated GFR 64, Est GFR ( Amer) 78, Glucose 258 H, Calcium 7.9 L, Total Bilirubin < 0.1 L, AST 33, ALT 31, Alkaline Phosphatase 184 H, Total Protein 7.1, Albumin 3.6, Globulin 3.5 H, Albumin/Globulin Ratio 1.0 L 12/15/21 03:40: NT-Pro-B Natriuret Pep 66.4 Result diagrams: 12/15/21 03:40 12/15/21 03:40 Orders (Tests/Meds): ED MEDICATIONS Generic Name Dose Route Start Last Admin Trade Name Jeremy PRN Reason Stop Dose Admin Ceftriaxone Sodium 1 gm/ 50 mls @ 100 mls/hr 12/15/21 04:00 12/15/21 04:08 Sodium Chloride IV 12/29/21 03:59 100 mls/hr Q24H CARLIN Administration - Radiology Data #1 Image(s): L-Spine, Other (coccyx) Image Reviewed: Yes I have reviewed radiologist's interpretation Preliminary Findings: No Fracture Seen Medical Decision Narrative: will need to see pcp and physical therapy - use regular meds General Adult HPI - General Chief complaint: PAIN Stated complaint: Low back pain; legs swelling AO 2300 Time Seen by Provider: 12/15/21 02:30 Mode of Arrival: Wheelchair Source of Information: Patient, Medical Record Limitations: No Limitations Description of Symptoms (Recalled from ER Triage Doc. by RN): Pt c/o low back and coccyx pain after a fall. The breaks were not locked on his wheelchair and it rolled out from under him. He denies hitting his head or neck pain. Pt also c/o chronic bilateral leg pain and thinks the swelling is worse and the fluid pill ain't working anymore . Bilat pulses intact, PRODUCT SPECIALIST < 3 sec. Pitting edema noted. - History of Present Illness HPI narrative: fell out of wheelchair and has lower back pain - has hx of falls and chronic lower ext edema Onset (ago): hour(s) Location: back Severity: moderate Consistency: intermittent Associated symptoms: denies other symptoms Treatments prior to arrival: none - Related Data Home Medications Medication Instructions Recorded Confirmed aspirin 81 mg tablet,delayed 81 mg PO DAILY tab 10/27/17 12/15/21 release cholecalciferol (vitamin D3) 1,250 1,250 mcg PO WEEKLY
--- NOTE | 2021-12-15 03:51 | XR_ITS ---
PROCEDURE INFORMATION: Exam: XR Sacrum and Coccyx, 2 or More Views Exam date and time: 12/15/2021 3:58 AM Age: 51 years old Clinical indication: Injury or trauma; Fall; Blunt trauma (contusions or hematomas); Patient HX: C/O tailbone pain TECHNIQUE: Imaging protocol: XR of the sacrum and coccyx, 2 or more views. COMPARISON: CR XR LUMBAR SPINE MIN 4V 12/15/2021 3:56 AM FINDINGS: Bones/joints: There is no evidence of an acute fracture of the sacrum or coccyx. There is normal alignment of the sacroiliac joints. Soft tissues: Soft tissue swelling could be present. IMPRESSION: 1. No acute fracture. 2. Question soft tissue swelling. Follow-up imaging may be indicated.
--- NOTE | 2021-12-15 03:51 | XR_ITS ---
PROCEDURE INFORMATION: Exam: XR Lumbosacral Spine Exam date and time: 12/15/2021 3:56 AM Age: 51 years old Clinical indication: Injury or trauma; Fall; Blunt trauma (contusions or hematomas) TECHNIQUE: Imaging protocol: Radiologic exam of the lumbosacral spine. Views: 4 or 5 views. COMPARISON: CR XR LUMBAR SPINE 2-3V 11/27/2021 11:28 PM FINDINGS: Bones/joints: There is straightening of the normal lumbar lordosis which may be related to patient position or muscle spasm. There is no subluxation. No acute fracture. There are facet joint degenerative changes in the lower lumbar spine. There is no evidence of spondylolysis. Soft tissues: Unremarkable. IMPRESSION: 1. Straightening of the normal lumbar lordosis may be related to patient position or muscle spasm. 2. No fracture or subluxation.
[2021-12-15 04:03] LABS: Basophils # 0.1 K/mm3 (0-0.2); Basophils % 1.1 % (0.1-2.0); Eosinophils # 0.3 K/mm3 (0.0-0.4); Eosinophils % 4.2 % (0.1-12.0); Hematocrit 32.8 % (42.0-52.0); Hemoglobin 9.8 g/dL (14.1-18.0); Lymphocytes # 1.4 K/mm3 (0.7-4.5); Lymphocytes % 18.4 % (10-50); Mean Corpuscular HGB Conc 29.8 g/dL (31.8-35.4); Mean Corpuscular Hemoglobin 20.9 pg (27.0-31.2); Mean Platelet Volume 8.1 fl (7.4-10.4); Monocytes # 0.5 K/mm3 (0.1-1.0); Monocytes % 6.7 % (1.7-9.3); Neutrophils # 5.5 K/mm3 (1.8-7.8); Neutrophils % 69.6 % (37.0-80.0); Platelet Count 421 K/mm3 (142-424); Red Blood Count 4.68 M/mm3 (4.60-6.20); Red Cell Distribution Width 18.5 % (11.5-17.5); White Blood Count 7.9 K/mm3 (4.8-10.8)
[2021-12-15 04:10] LABS: Alanine Aminotransferase 31 U/L (12-78); Albumin Level 3.6 g/dl (3.5-5.0); Alkaline Phosphatase 184 U/L (38-126); Anion Gap 7.6 mEq/L (5-15); Aspartate Amino Transferase 33 U/L (17-59); Blood Urea Nitrogen 16 mg/dl (9-20); Calcium 7.9 mg/dl (8.4-10.2); Carbon Dioxide 29 mmol/L (22.0-30.0); Chloride 108 mmol/L (98-107); Creatinine Clearance Estimated 71 mL/min (50-200); Estimated Glomerular Filt Rate 64 ml/min (>60); GFR (African American) 78 ML/MIN (>60); Globulin 3.5 g/dL (1.3-3.2); Glucose 258 mg/dl (74-100); Potassium 3.6 mmoL/L (3.5-5.1); Sodium 141 mmol/L (136-145); Total Protein,Serum 7.1 g/dl (6.3-8.2)
[2021-12-15 04:18] LABS: NT Pro Brain Natriuretic Pep. 66.4 pg/mL (0-125)
[2021-12-15 04:19] LABS: Bilirubin,Total < 0.1 mg/dl (0.2-1.3)
[2021-12-15 06:12] VITALS: BP 153/89; PULSE 88; RESP 19; TEMP 36.6; O2SAT 97
== END 2021-12-15 06:18 | disposition home or self-care (01) ==
PROVIDERS: Emergency Provider Emergency Medicine; PCP Family Medicine
DX: L03.115 Cellulitis of right lower limb; L03.116 Cellulitis of left lower limb; S30.0XXA Contusion of lower back and pelvis, initial encounter; W05.0XXA Fall from non-moving wheelchair, initial encounter; Z91.81 History of falling; Z79.82 Long term (current) use of aspirin; Z79.84 Long term (current) use of oral hypoglycemic drugs; Z79.4 Long term (current) use of insulin; Z79.899 Other long term (current) drug therapy; I48.91 Unspecified atrial fibrillation; I25.10 Atherosclerotic heart disease of native coronary artery without angina pectoris; E11.9 Type 2 diabetes mellitus without complications; I11.0 Hypertensive heart disease with heart failure; I73.9 Peripheral vascular disease, unspecified
CPT/HCPCS: 72110; 72220; 80053; 83880; 85025; 96374; 99284; J0696

== ENCOUNTER 2021-12-16 16:02 | Emergency (ER) | payer MEDICARE, MEDICAID, SELFPAY ==
[2021-12-16] VITALS (10 sets, daily range): BP systolic 124–207; BP diastolic 70–118; PULSE 72–102; RESP 16–29; TEMP 36.7–37; O2SAT 94–100; BMI 45.6
--- NOTE | 2021-12-16 16:04 | HMH.EDCP ---
ED Disposition Clinical Impression: Atypical chest pain, Chest discomfort Leg abrasion Qualifiers: Encounter type: initial encounter Laterality: left Qualified Code(s): S80.812A - Abrasion, left lower leg, initial encounter Disposition: Home, Self-Care Condition on Discharge: Good Instructions: DI for Atypical Chest Pain Additional Instructions: follow up cardiology, return for worse Prescriptions: Mupirocin [Bactroban 2% Ointment 22gm tube] 1 applicatio TP TID #15 gm Transmission Status: Pending [facility] Referrals: Bert Villagomez MD [Primary Care Provider] - - Critical Care Critical Care Time: No Attestation: On , the high probability of a clinically significant, sudden or life threatening deterioration of the following system(s) required my full and direct attention, intervention and personal management. The time I documented below is in addition to time spent performing reported procedures but includes the following listed in this critical care notation. Medical Decision Making - Medical Records Medical records reviewed: Yes: I reviewed the patient's medical records. - Fahad Inquiry Pt receiving controlled substance: No Vital Signs: 12/16/21 16:02 12/16/21 16:14 12/16/21 16:30 Temperature 98.6 F Temperature Source Oral Pulse Rate 99 H 93 H Pulse Rate [Brachial] 102 H Respiratory Rate 24 16 Blood Pressure 165/81 H 178/100 H Blood Pressure [Right Arm] 207/94 H Blood Pressure Mean 116 Blood Pressure Mean [Right Arm] 131 Blood Pressure Source Automatic Cuff Blood Pressure Source [Right Arm] Automatic Cuff Blood Pressure Position Sitting Blood Pressure Position [Right Arm] Sitting 02 Sat by Pulse Oximetry 100 96 95 Oxygen Delivery Method Room Air Room Air 12/16/21 16:35 12/16/21 16:44 12/16/21 17:00 Temperature Temperature Source Pulse Rate 96 H 96 H 96 H Pulse Rate [Brachial] Respiratory Rate 29 H Blood Pressure 144/118 H 166/85 H Blood Pressure [Right Arm] Blood Pressure Mean 124 112 Blood Pressure Mean [Right Arm] Blood Pressure Source Blood Pressure Source [Right Arm] Blood Pressure Position Blood Pressure Position [Right Arm] 02 Sat by Pulse Oximetry 98 97 Oxygen Delivery Method Room Air 12/16/21 17:31 12/16/21 18:00 12/16/21 18:41 Temperature Temperature Source Pulse Rate 72 99 H 99 H Pulse Rate [Brachial] Respiratory Rate 18 18 Blood Pressure 136/70 159/80 H 163/80 H Blood Pressure [Right Arm] Blood Pressure Mean 92 106 107 Blood Pressure Mean [Right Arm] Blood Pressure Source Blood Pressure Source [Right Arm] Blood Pressure Position Blood Pressure Position [Right Arm] 02 Sat by Pulse Oximetry 94 L Oxygen Delivery Method - Lab Data Lab Results 12/16/21 16:18: WBC 9.4, RBC 4.80, Hgb 9.9 L, Hct 33.6 L, MCV 70.0 L, MCH 20.6 L, MCHC 29.5 L, RDW 18.5 H, Plt Count 451 H, MPV 7.3 L, Neut % (Auto) 73.0, Lymph % (Auto) 16.8, [place] % (Auto) 5.4, Eos % (Auto) 3.6, Baso % (Auto) 1.3, Neut # (Auto) 6.9, Lymph # (Auto) 1.6, [place] # (Auto) 0.5, Eos # (Auto) 0.3, Baso # (Auto) 0.1 12/16/21 16:18: Sodium 142, Potassium 3.6, Chloride 105, Carbon Dioxide 32 H, Anion Gap 8.6, BUN 11 D, Creatinine 1.20, Estimated Creat Clear 71, Estimated GFR 64, Est GFR ( Amer) 78, Glucose 79, Calcium 8.3 L, Total Bilirubin < 0.1 L, AST 34, ALT 30, Alkaline Phosphatase 194 H, Troponin I < 0.01, Total Protein 7.6, Albumin 3.8, Globulin 3.8 H, Albumin/Globulin Ratio 1.0 L 12/16/21 18:40: Troponin I < 0.01 Result diagrams: 12/16/21 16:18 12/16/21 16:18 Orders (Tests/Meds): ED MEDICATIONS Discontinued Medications Generic Name Dose Route Start Last Admin Trade Name Freq PRN Reason Stop Dose Admin Albuterol/Ipratropium 3 ml 12/16/21 16:12 12/16/21 16:35 Ipratropium/Albuterol 3 Ml Neb IH 12/16/21 16:13 3 ml ONCE ONE Administration Aspirin 324 mg 12/16/21 16:05 11/25
--- NOTE | 2021-12-16 16:05 | ECG_ITS ---
APPROVED REPORT Exam: Resting ECG HR:103 bpm ECG Measurements Heart Rate 103 AXES NJ 156 P 58 QRSd 109 QRS 16 QT 342 T 67 QTc 401 Conclusion SINUS TACHYCARDIA ABNORMAL RHYTHM ECG UNCONFIRMED REPORT Electronically signed by : Cameron Kohli MD 12/17/2021 17:31:55
--- NOTE | 2021-12-16 16:05 | PC.NURSE ---
pt to ED room 6 by wheelchair with security clerk from waiting area; pt onto ED stretcher without complications. EKG performed and pt triaged. Pt hooked to monitor and IV started. Yara RN, Emily SÁNCHEZ, [facility] Billing Adjudicator and Ailyn narayanan BS
--- NOTE | 2021-12-16 16:11 | PC.NURSE ---
MIRTHA CARLISLE at
--- NOTE | 2021-12-16 16:13 | XR_ITS ---
FINAL REPORT CLINICAL HISTORY: clay bhatia COMPARISON: December 08, 2021 FINDINGS: A single portable view of the chest was obtained. The heart is enlarged. The pulmonary vascularity is within normal limits. The mediastinum is within normal limits. There are mild left base opacities which favor atelectasis. The bony thorax is intact. IMPRESSION: Mild left base opacities, favor atelectasis. Reviewed, Interpreted and Dictated by De Velez III, MD Transcribed by Lamar Delgado Authenticated and [facility]
[2021-12-16 16:29] LABS: Basophils # 0.1 K/mm3 (0-0.2); Basophils % 1.3 % (0.1-2.0); Eosinophils # 0.3 K/mm3 (0.0-0.4); Eosinophils % 3.6 % (0.1-12.0); Hematocrit 33.6 % (42.0-52.0); Hemoglobin 9.9 g/dL (14.1-18.0); Lymphocytes # 1.6 K/mm3 (0.7-4.5); Lymphocytes % 16.8 % (10-50); Mean Corpuscular HGB Conc 29.5 g/dL (31.8-35.4); Mean Corpuscular Hemoglobin 20.6 pg (27.0-31.2); Mean Platelet Volume 7.3 fl (7.4-10.4); Monocytes # 0.5 K/mm3 (0.1-1.0); Monocytes % 5.4 % (1.7-9.3); Neutrophils # 6.9 K/mm3 (1.8-7.8); Platelet Count 451 K/mm3 (142-424); Red Cell Distribution Width 18.5 % (11.5-17.5); White Blood Count 9.4 K/mm3 (4.8-10.8)
--- NOTE | 2021-12-16 16:36 | PC.NURSE ---
Respiratory at BS
--- NOTE | 2021-12-16 16:40 | PC.NURSE ---
RT AT BEDSIDE FOR BREATHING TREATMENT
--- NOTE | 2021-12-16 16:54 | PC.NURSE ---
pt given warm blankets
[2021-12-16 16:55] LABS: Alanine Aminotransferase 30 U/L (12-78); Albumin Level 3.8 g/dl (3.5-5.0); Alkaline Phosphatase 194 U/L (38-126); Anion Gap 8.6 mEq/L (5-15); Aspartate Amino Transferase 34 U/L (17-59); Blood Urea Nitrogen 11 mg/dl (9-20); Calcium 8.3 mg/dl (8.4-10.2); Carbon Dioxide 32 mmol/L (22.0-30.0); Chloride 105 mmol/L (98-107); Creatinine Clearance Estimated 71 mL/min (50-200); Estimated Glomerular Filt Rate 64 ml/min (>60); GFR (African American) 78 ML/MIN (>60); Globulin 3.8 g/dL (1.3-3.2); Glucose 79 mg/dl (74-100); Potassium 3.6 mmoL/L (3.5-5.1); Sodium 142 mmol/L (136-145); Total Protein,Serum 7.6 g/dl (6.3-8.2)
[2021-12-16 17:09] LABS: Bilirubin,Total < 0.1 mg/dl (0.2-1.3); Troponin I < 0.01 ng/ml (0.00-0.034)
--- NOTE | 2021-12-16 17:57 | PC.NURSE ---
pt sitting up in wheelchair, sleeping at this time
--- NOTE | 2021-12-16 18:30 | PC.NURSE ---
pt given sandwich and diet pepsi.
--- NOTE | 2021-12-16 18:44 | PC.NURSE ---
REZA DRAWN AND SENT TO LAB
--- NOTE | 2021-12-16 18:58 | PC.NURSE ---
pt sitting up in wheelchair
--- NOTE | 2021-12-16 19:12 | PC.NURSE ---
Pt asked to speak to MD. MD made aware.
[2021-12-16 19:15] LABS: Troponin I < 0.01 ng/ml (0.00-0.034)
== END 2021-12-16 19:42 | disposition home or self-care (01) ==
PROVIDERS: Emergency Provider Emergency Medicine; PCP Family Medicine
DX: R07.89 Other chest pain (principal); S80.812A Abrasion, left lower leg, initial encounter; Z79.82 Long term (current) use of aspirin; Z79.4 Long term (current) use of insulin; Z79.899 Other long term (current) drug therapy; Z88.8 Allergy status to other drugs, medicaments and biological substances; I48.91 Unspecified atrial fibrillation; I25.10 Atherosclerotic heart disease of native coronary artery without angina pectoris; E11.9 Type 2 diabetes mellitus without complications; I10 Essential (primary) hypertension; K21.9 Gastro-esophageal reflux disease without esophagitis; E78.5 Hyperlipidemia, unspecified; I50.9 Heart failure, unspecified; I73.9 Peripheral vascular disease, unspecified
CPT/HCPCS: 71045; 80053; 84484; 85025; 93005; 94640; 99284

== ENCOUNTER 2021-12-20 08:45 | Emergency (ER) | payer MEDICARE, MEDICAID, SELFPAY ==
[2021-12-20 08:46] VITALS: BP 102/52; PULSE 74; RESP 18; TEMP 36.4; O2SAT 98; BMI 45.6
--- NOTE | 2021-12-20 08:50 | PC.NURSE ---
finger stick 151
--- NOTE | 2021-12-20 08:52 | HMH.EDGENADL ---
ED Disposition Clinical Impression: Neuropathy, Hyperglycemia due to diabetes mellitus, Weakness Disposition: Home, Self-Care Condition on Discharge: Fair Instructions: DI for Chronic Pain -- Adult Additional Instructions: Follow-up with your primary care physician in about 2 to 3 days if you do not feel any better. Return to the emergency department if you feel worse in any way. Continue taking all medications as prescribed. Prescriptions: Ketorolac Tromethamine [Toradol 10mg tablet] 10 mg PO Q8HP PRN #9 tab MDD 40mg/day PRN Reason: pain Transmission Status: Received by [facility] Referrals: Bert Villagomez MD [Primary Care Provider] - - Critical Care Critical Care Time: No Attestation: On , the high probability of a clinically significant, sudden or life threatening deterioration of the following system(s) required my full and direct attention, intervention and personal management. The time I documented below is in addition to time spent performing reported procedures but includes the following listed in this critical care notation. Medical Decision Making - Fahad Inquiry Pt receiving controlled substance: No Vital Signs: 12/20/21 08:46 12/20/21 09:36 12/20/21 10:01 Temperature 97.6 F Temperature Source Oral Pulse Rate 79 78 Pulse Rate [Left Radial] 74 Respiratory Rate 18 18 Blood Pressure 121/42 L 152/67 H Blood Pressure [Right Arm] 102/52 L Blood Pressure Mean 68 95 Blood Pressure Mean [Right Arm] 68 Blood Pressure Source [Right Arm] Automatic Cuff Blood Pressure Position [Right Arm] Sitting 02 Sat by Pulse Oximetry 98 95 98 Oxygen Delivery Method Room Air 12/20/21 11:26 Temperature 97.6 F Temperature Source Pulse Rate 78 Pulse Rate [Left Radial] Respiratory Rate 18 Blood Pressure 160/66 H Blood Pressure [Right Arm] Blood Pressure Mean Blood Pressure Mean [Right Arm] Blood Pressure Source [Right Arm] Blood Pressure Position [Right Arm] 02 Sat by Pulse Oximetry Oxygen Delivery Method Room Air - Lab Data Lab results reviewed: Yes: I reviewed the patient's lab results. Glucose= 151 Orders (Tests/Meds): ED MEDICATIONS Discontinued Medications Generic Name Dose Route Start Last Admin Trade Name Freq PRN Reason Stop Dose Admin Ketorolac Tromethamine 60 mg 12/20/21 08:56 12/20/21 09:19 Ketorolac 60mg/2ml Vial IM 12/20/21 08:57 60 mg ONCE ONE Administration Medical Decision Narrative: The patient's history and physical examination did not reveal any life-threatening or dangerous causes for the patient's symptoms. His neurological status is at baseline. There is no evidence of stroke. He moves all 4 extremities normally. His NIH stroke scale is 0. His blood glucose is normal. The patient has numerous chronic medical conditions none of which seem to require emergent elicitation or treatment. I feel that the patient can be safely discharged. General Adult HPI - General Stated complaint: weakness Time Seen by Provider: 12/20/21 08:52 Mode of Arrival: EMS Source of Information: Patient, EMS - History of Present Illness HPI narrative: The patient presents to the emergency department complaining of generalized weakness since this morning. He is a known diabetic. He is relatively noncompliant. He frequently visits this emergency department and is well-known to this institution. He states that he took his insulin this morning and had breakfast. He also complains of left-sided leg pain which is another chronic issue. - Related Data Home Medications Medication Instructions Recorded Confirmed aspirin 81 mg tablet,delayed 81 mg PO DAILY tab 10/27/17 12/15/21 release cholecalciferol (vitamin D3) 1,250 1,250 mcg PO WEEKLY 01/18/21 12/15/21 mcg (50,000 unit) capsule Doxazosin Mesylate [Cardura 4mg 2 mg PO BID 01/29/21 12/15/21 Tab] Trazodone HCl 50 mg PO HS 03/08/21 12/15/21 Budesonide/Formoterol Fumarat
[2021-12-20 09:03] VITALS: BMI 45.6
--- NOTE | 2021-12-20 09:19 | PC.NURSE ---
pt adamantly requesting to sit up on the side of the bed. Pt reports he can't sit up in the bed with both feet up in his in uncomfortable. Rail taken down and pt sitting on side of the bed at this time per his request. Pt room curtain left open to be able to see pt for safety
[2021-12-20 09:36] VITALS: BP 121/42; PULSE 79; O2SAT 95
[2021-12-20 10:01] VITALS: BP 152/67; PULSE 78; RESP 18; O2SAT 98
[2021-12-20 11:26] VITALS: BP 160/66; PULSE 78; RESP 18; TEMP 36.4; O2SAT 98
== END 2021-12-20 11:32 | disposition home or self-care (01) ==
PROVIDERS: Emergency Provider Emergency Medicine; PCP Family Medicine
DX: E11.40 Type 2 diabetes mellitus with diabetic neuropathy, unspecified (principal); E11.65 Type 2 diabetes mellitus with hyperglycemia; R53.1 Weakness; Z79.82 Long term (current) use of aspirin; Z79.899 Other long term (current) drug therapy; Z79.84 Long term (current) use of oral hypoglycemic drugs; Z79.4 Long term (current) use of insulin; Z88.8 Allergy status to other drugs, medicaments and biological substances; I48.91 Unspecified atrial fibrillation; I25.10 Atherosclerotic heart disease of native coronary artery without angina pectoris; E78.5 Hyperlipidemia, unspecified; I10 Essential (primary) hypertension
CPT/HCPCS: 96374; 99284

== ENCOUNTER 2021-12-23 12:28 | Emergency (ER) | payer MEDICARE, MEDICAID, SELFPAY ==
[2021-12-23] VITALS (10 sets, daily range): BP systolic 141–168; BP diastolic 69–86; PULSE 90–109; RESP 18–20; TEMP 36.8; O2SAT 92–100; BMI 45.6
--- NOTE | 2021-12-23 12:48 | PC.NURSE ---
pt sitting in a wheelchair per pt request. pt provided with a blanket.
--- NOTE | 2021-12-23 12:49 | HMH.EDGENADL ---
ED Disposition Clinical Impression: Hyperglycemia Chronic leg pain Qualifiers: Laterality: bilateral Qualified Code(s): M79.604 - Pain in right leg Disposition: Home, Self-Care Condition on Discharge: Fair Additional Instructions: Percocet as needed. Ibuprofen as prescribed. See Dr. Villagomez in his office tomorrow. Additional instructions for CONTROLLED SUBSTANCES: You have been prescribed a medication that is a controlled substance. Controlled substances include pain medications known as opiates and sedative nerve medications known as benzodiazepines. Tramadol, fioricet, and gabapentin are also controlled substances. Some common opiates include: Codeine (such as Tylenol #3) Hydrocodone (Vicodin, Lortab, Lorcet, [place]) Oxycodone (Percocet, Percodan, Oxycodone, Oxy IR) Some common benzodiazepines include: Diazepam (Valium) Lorazepam (Ativan) Alprazolam (Xanax) Clonazepam (Klonopin) Oxazepam (Serax) All of these controlled substances are highly addictive and frequently abused. Misuse can and frequently does lead to addiction as well as overdose and . Medication should be stored in a locked cabinet or other secure storage unit. Do not store the medication in a motor vehicle. Short term supplies, 3 days or less, are prescribed because of the highly addictive nature of the medication. Any of the controlled substance medication NOT taken should be disposed of properly and NOT SAVED. The recommended method of disposing of unused medications is: Place the medicines in a sealable plastic bag. If the medicine is a solid, crush it or add water to dissolve it. Add something undesirable (cat litter, coffee grounds, etc.) Dispose of sealed bag in household trash Do not flush or pour unused medicines down a sink or drain. Controlled substances should not be shared, given away or sold. Because of the addictive nature and frequent abuse, these medications are sometimes stolen. These medications should be kept in a safe place where they cannot be stolen. Do not keep them in your car or purse. Lost or stolen prescriptions for controlled substances WILL NOT BE REFILLED in this emergency department, regardless of whether a police report was filed. Prescriptions: Oxycodone HCl/Acetaminophen [Percocet 5/325mg tablet] 1 tab PO Q6HP PRN #2 tab PRN Reason: Moderate To Severe Pain Transmission Status: [facility] Ibuprofen [Ibuprofen 800mg Tablet] 800 mg PO Q8HP PRN #15 tab PRN Reason: Moderate Pain Transmission Status: Sent to [facility] Referrals: Cameron Kohli MD [Primary Care Provider] - - Critical Care Critical Care Time: No Attestation: On 12/23/21, the high probability of a clinically significant, sudden or life threatening deterioration of the following system(s) required my full and direct attention, intervention and personal management. The time I documented below is in addition to time spent performing reported procedures but includes the following listed in this critical care notation. Medical Decision Making - Fahad Inquiry Pt receiving controlled substance: Yes Fahad was queried for this patient: Yes Risks and benefits of using a controlled substance: were discussed with pt by me Vital Signs: 12/23/21 12:30 12/23/21 12:31 12/23/21 13:00 Temperature 98.2 F Temperature Source Oral Pulse Rate 97 H 90 Pulse Rate [Left Radial] 98 H Respiratory Rate 20 20 Blood Pressure 151/77 H 155/76 H Blood Pressure [Right Arm] 153/69 H Blood Pressure Mean 90 Blood Pressure Mean [Right Arm] 97 02 Sat by Pulse Oximetry 96 100 95 Oxygen Delivery Method Room Air Room Air 12/23/21 13:01 12/23/21 13:31 12/23/21 13:43 Temperature Temperature Source Pulse Rate 95 H 95 H 109 H Pulse Rate [Left Radial] Respiratory Rate Blood Pressure 155/76 H 141/73 H 168/82 H Blood Pressure [Right Arm] Blood Pressure Mean 102 95 97 Blood P
--- NOTE | 2021-12-23 13:26 | PC.NURSE ---
MIRTHA CARLISLE at
--- NOTE | 2021-12-23 14:09 | PC.NURSE ---
Dr Hernando flores
--- NOTE | 2021-12-23 14:10 | PC.NURSE ---
lab called for blood draw
--- NOTE | 2021-12-23 14:17 | PC.NURSE ---
Lab at to draw labs
--- NOTE | 2021-12-23 14:20 | PC.NURSE ---
lab here for blood
--- NOTE | 2021-12-23 14:21 | PC.NURSE ---
lunch tray here
--- NOTE | 2021-12-23 14:25 | PC.NURSE ---
lunch tray given to pt at this time.
--- NOTE | 2021-12-23 14:28 | PC.NURSE ---
DR CATHERINE SPEAKING WITH DR VALENZUELA
[2021-12-23 14:35] LABS: Basophils % 0.4 % (0.1-2.0); Eosinophils # 0.3 K/mm3 (0.0-0.4); Eosinophils % 3.9 % (0.1-12.0); Hemoglobin 10.1 g/dL (14.1-18.0); Lymphocytes # 1.1 K/mm3 (0.7-4.5); Lymphocytes % 12.9 % (10-50); Mean Corpuscular HGB Conc 29.6 g/dL (31.8-35.4); Mean Corpuscular Hemoglobin 20.8 pg (27.0-31.2); Mean Corpuscular Volume 70.1 fl (80-94); Mean Platelet Volume 6.7 fl (7.4-10.4); Monocytes # 0.6 K/mm3 (0.1-1.0); Monocytes % 7.4 % (1.7-9.3); Neutrophils # 6.4 K/mm3 (1.8-7.8); Neutrophils % 75.4 % (37.0-80.0); Platelet Count 349 K/mm3 (142-424); Red Blood Count 4.85 M/mm3 (4.60-6.20); Red Cell Distribution Width 17.1 % (11.5-17.5); White Blood Count 8.5 K/mm3 (4.8-10.8)
[2021-12-23 15:14] LABS: Anion Gap 13.9 mEq/L (5-15); Blood Urea Nitrogen 23 mg/dl (9-20); Carbon Dioxide 34 mmol/L (22.0-30.0); Chloride 94 mmol/L (98-107); Creatinine Clearance Estimated 57 mL/min (50-200); Estimated Glomerular Filt Rate 50 ml/min (>60); GFR (African American) 60 ML/MIN (>60); Potassium 3.9 mmoL/L (3.5-5.1); Sodium 138 mmol/L (136-145)
[2021-12-23 15:27] LABS: Glucose 427 mg/dl (74-100)
--- NOTE | 2021-12-23 15:43 | PC.NURSE ---
ER MD at speaking with patient regarding update on POC
--- NOTE | 2021-12-23 16:02 | PC.NURSE ---
G.Chao rounding on pt. No needs at this time.
--- NOTE | 2021-12-23 16:08 | PC.NURSE ---
at the bedside for ordered IM medications
== END 2021-12-23 16:23 | disposition home or self-care (01) ==
PROVIDERS: Emergency Provider Emergency Medicine; PCP Internal Medicine Adolescent Medicine
DX: E11.65 Type 2 diabetes mellitus with hyperglycemia (principal); M79.604 Pain in right leg; M79.605 Pain in left leg; Z79.82 Long term (current) use of aspirin; Z79.84 Long term (current) use of oral hypoglycemic drugs; Z79.4 Long term (current) use of insulin; Z79.899 Other long term (current) drug therapy; Z88.8 Allergy status to other drugs, medicaments and biological substances; E78.5 Hyperlipidemia, unspecified; I10 Essential (primary) hypertension; Z95.0 Presence of cardiac pacemaker; I73.9 Peripheral vascular disease, unspecified; I48.91 Unspecified atrial fibrillation; I25.10 Atherosclerotic heart disease of native coronary artery without angina pectoris; K21.9 Gastro-esophageal reflux disease without esophagitis
CPT/HCPCS: 80048; 85025; 99282; J2405

== ENCOUNTER 2021-12-24 17:15 | Emergency (ER) | payer MEDICARE, MEDICAID, SELFPAY ==
[2021-12-24 17:17] VITALS: BP 148/54; PULSE 109; RESP 24; TEMP 37.6; O2SAT 90; BMI 45.6
--- NOTE | 2021-12-24 17:19 | HMH.EDGENADL ---
ED Disposition Clinical Impression: Hyperglycemia without ketosis, Nausea Chronic pain Qualifiers: Chronic pain type: other chronic pain Qualified Code(s): G89.29 - Other chronic pain Disposition: Home, Self-Care Condition on Discharge: Fair Instructions: DI for Chronic Pain -- Adult Additional Instructions: Take all medications as prescribed. Return to the emergency department if you feel worse. Please follow-up with your primary care physician within the next 3 to 4 days. Referrals: Bert Villagomez MD [Primary Care Provider] - - Critical Care Critical Care Time: No Attestation: On , the high probability of a clinically significant, sudden or life threatening deterioration of the following system(s) required my full and direct attention, intervention and personal management. The time I documented below is in addition to time spent performing reported procedures but includes the following listed in this critical care notation. Medical Decision Making - Fahad Inquiry Pt receiving controlled substance: No Vital Signs: 12/24/21 17:17 Temperature 99.7 F H Temperature Source Oral Pulse Rate [Radial] 109 H Respiratory Rate 24 Blood Pressure [Right Arm] 148/54 H Blood Pressure Mean [Right Arm] 85 Blood Pressure Position [Right Arm] Sitting 02 Sat by Pulse Oximetry 90 L Oxygen Delivery Method Room Air Orders (Tests/Meds): ED MEDICATIONS Discontinued Medications Generic Name Dose Route Start Last Admin Trade Name Sarkisq PRN Reason Stop Dose Admin Ketorolac Tromethamine 60 mg 12/24/21 17:22 12/24/21 17:43 Ketorolac 60mg/2ml Vial IM 12/24/21 17:23 60 mg ONCE ONE Administration Ondansetron HCl 4 mg 12/24/21 17:22 12/24/21 17:43 Ondansetron 4mg Odt SL 12/24/21 17:23 4 mg ONCE ONE Administration Orphenadrine Citrate 60 mg 12/24/21 17:45 12/24/21 17:49 Orphenadrine Citrate 60mg/2ml Vial IM 12/24/21 17:46 60 mg ONCE ONE Administration Medical Decision Narrative: The patient presents to the emergency department frequently for similar complaints. He is a noncompliant diabetic. He usually comes in with high glucose. He also complains of chronic leg pain. He today the patient does not seem to exhibit any new findings. His glucose is elevated. However, this is not unusual for this patient. I feel the patient does not require an extensive work-up. He had a work-up yesterday. The patient can be safely discharged home. General Adult HPI - General Stated complaint: legs swollen and sick at stomach Time Seen by Provider: 12/24/21 17:19 - History of Present Illness HPI narrative: The patient presents to the emergency department complaining of lower extremity edema and nausea. He has been in this emergency department numerous times over the last few days. I saw him earlier this week. He had the same complaints. He has chronic pain. He denies any new symptoms. - Related Data Home Medications Medication Instructions Recorded Confirmed aspirin 81 mg tablet,delayed 81 mg PO DAILY tab 10/27/17 12/15/21 release cholecalciferol (vitamin D3) 1,250 1,250 mcg PO WEEKLY 01/18/21 12/15/21 mcg (50,000 unit) capsule Doxazosin Mesylate [Cardura 4mg 2 mg PO BID 01/29/21 12/15/21 Tab] Trazodone HCl 50 mg PO HS 03/08/21 12/15/21 Budesonide/Formoterol Fumarate 2 puff IH BID 04/02/21 12/15/21 [Budesonide-Formoterol 160-4.5] metformin 500 mg tablet 500 mg PO DAILY tab 06/08/21 12/15/21 insulin aspart 80 unit SQ BID ml 10/13/21 12/15/21 (niacinamide)(U-100) 100 unit/mL(3 mL) subcutaneous pen Atorvastatin Calcium [Lipitor 80mg 80 mg PO HS 12/03/21 12/15/21 Tablet*] Buspirone HCl [Buspirone 30mg 30 mg PO BID 12/03/21 12/15/21 Tablets] Dulaglutide [Trulicity] 1.5 mg SQ WEEKLY 12/03/21 12/15/21 Duloxetine HCl [Cymbalta] 60 mg PO DAILY 12/03/21 12/15/21 Losartan/Hydrochlorothiazide 1 tab PO DAILY 12/03/21 12/15/21 [Hyzaar 100-25 Tablet] Mupirocin
--- NOTE | 2021-12-24 17:21 | PC.NURSE ---
MIRTHA CARLISLE at
[2021-12-24 18:43] VITALS: BP 151/89; PULSE 100; RESP 20; TEMP 37.2; O2SAT 90
[2021-12-24 18:46] LABS: POC Glucose,Bedside 499 (70-110)
== END 2021-12-24 18:44 | disposition home or self-care (01) ==
PROVIDERS: Emergency Provider Emergency Medicine; PCP Family Medicine
DX: E11.65 Type 2 diabetes mellitus with hyperglycemia (principal); G89.29 Other chronic pain; E11.51 Type 2 diabetes mellitus with diabetic peripheral angiopathy without gangrene; Z79.4 Long term (current) use of insulin; Z79.899 Other long term (current) drug therapy; I10 Essential (primary) hypertension; Z91.19 Patient's noncompliance with other medical treatment and regimen
CPT/HCPCS: 82962; 96372; 99283

== ENCOUNTER 2021-12-26 12:15 | Emergency (ER) | payer MEDICARE, MEDICAID, SELFPAY ==
[2021-12-26 12:17] VITALS: BP 164/83; PULSE 95; RESP 20; TEMP 37; O2SAT 98; BMI 47.0
--- NOTE | 2021-12-26 12:26 | HMH.EDEXTP ---
ED Disposition Clinical Impression: Cellulitis and abscess of foot Disposition: Home, Self-Care Condition on Discharge: Fair Instructions: Cellulitis Additional Instructions: Take all medications as prescribed. Start your new antibiotic tomorrow. Continue taking all other medications including the antibiotics prescribed earlier last week. Return to the emergency department if you develop a fever or worsen in any way. Prescriptions: levoFLOXacin [Levaquin 500mg tab] 500 mg PO DAILY #7 tab Transmission Status: Received by [id number] Referrals: Bert Villagomez MD [Primary Care Provider] - - Critical Care Critical Care Time: No Attestation: On , the high probability of a clinically significant, sudden or life threatening deterioration of the following system(s) required my full and direct attention, intervention and personal management. The time I documented below is in addition to time spent performing reported procedures but includes the following listed in this critical care notation. Medical Decision Making - Medical Records Medical records reviewed: Yes: I reviewed the patient's medical records. - Fahad Inquiry Pt receiving controlled substance: No Vital Signs: 12/26/21 12:17 Temperature 98.6 F Temperature Source Oral Pulse Rate [Radial] 95 H Respiratory Rate 20 Blood Pressure [Right Radial Artery] 164/83 H Blood Pressure Mean [Right Radial Artery] 110 Blood Pressure Position [Right Radial Artery] Sitting 02 Sat by Pulse Oximetry 98 Oxygen Delivery Method Room Air Orders (Tests/Meds): ED MEDICATIONS Discontinued Medications Generic Name Dose Route Start Last Admin Trade Name Jeremy PRN Reason Stop Dose Admin Levofloxacin 500 mg 12/26/21 12:27 12/26/21 12:35 Levofloxacin 500mg Tab PO 12/26/21 12:28 500 mg ONCE ONE Administration Extremity Problem HPI - General Stated complaint: leg pain Time Seen by Provider: 12/26/21 12:26 Source of Information: Patient - History of Present Illness HPI Narrative: The patient presents to the emergency department again today complaining of chronic leg pain. He has been seen in this emergency department multiple times for the same. Denies any fevers. He also complains of nausea and vomiting. The symptoms are very similar to prior visits. - Related Data Home Medications Medication Instructions Recorded Confirmed aspirin 81 mg tablet,delayed 81 mg PO DAILY tab 10/27/17 12/15/21 release cholecalciferol (vitamin D3) 1,250 1,250 mcg PO WEEKLY 01/18/21 12/15/21 mcg (50,000 unit) capsule Doxazosin Mesylate [Cardura 4mg 2 mg PO BID 01/29/21 12/15/21 Tab] Trazodone HCl 50 mg PO HS 03/08/21 12/15/21 Budesonide/Formoterol Fumarate 2 puff IH BID 04/02/21 12/15/21 [Budesonide-Formoterol 160-4.5] metformin 500 mg tablet 500 mg PO DAILY tab 06/08/21 12/15/21 insulin aspart 80 unit SQ BID ml 10/13/21 12/15/21 (niacinamide)(U-100) 100 unit/mL(3 mL) subcutaneous pen Atorvastatin Calcium [Lipitor 80mg 80 mg PO HS 12/03/21 12/15/21 Tablet*] Buspirone HCl [Buspirone 30mg 30 mg PO BID 12/03/21 12/15/21 Tablets] Dulaglutide [Trulicity] 1.5 mg SQ WEEKLY 12/03/21 12/15/21 Duloxetine HCl [Cymbalta] 60 mg PO DAILY 12/03/21 12/15/21 Losartan/Hydrochlorothiazide 1 tab PO DAILY 12/03/21 12/15/21 [Hyzaar 100-25 Tablet] Mupirocin [Centany] 1 applic TP TID 12/03/21 12/15/21 Quetiapine Fumarate 300 mg PO HS 12/03/21 12/15/21 buPROPion HCL [Wellbutrin SR] 250 mg PO Q12H 12/03/21 12/15/21 diphenhydrAMINE HCL [Benadryl 25 mg PO BID 12/03/21 12/15/21 Allergy] Flash Glucose Scanning [place] See Rx Instructions .ROUTE DAILY 12/15/21 12/15/21 [FreeStyle Bessy 2 [place]] Flash Glucose Sensor [FreeStyle See Rx Instructions .ROUTE DAILY 12/15/21 12/15/21 Bessy 2 Sensor] Fluoxetine HCl [Prozac] 20 mg PO DAILY 12/15/21 12/15/21 Penicillin V Potassium [PenVK 250 mg PO TID 12/15/21 12/15/21 250mg tablet] predniSON
[2021-12-26 12:54] VITALS: BP 151/99; PULSE 89; RESP 20; TEMP 36.6; O2SAT 98
== END 2021-12-26 12:55 | disposition home or self-care (01) ==
PROVIDERS: Emergency Provider Emergency Medicine; PCP Family Medicine
DX: L02.619 Cutaneous abscess of unspecified foot (principal); E11.9 Type 2 diabetes mellitus without complications; I48.91 Unspecified atrial fibrillation; I11.0 Hypertensive heart disease with heart failure; I50.9 Heart failure, unspecified; F41.9 Anxiety disorder, unspecified; I25.10 Atherosclerotic heart disease of native coronary artery without angina pectoris; F32.A Depression, unspecified; K21.9 Gastro-esophageal reflux disease without esophagitis; E78.5 Hyperlipidemia, unspecified; Z95.0 Presence of cardiac pacemaker; I73.9 Peripheral vascular disease, unspecified
CPT/HCPCS: 99283

== ENCOUNTER 2021-12-27 10:15 | Emergency (ER) | payer MEDICARE, MEDICAID, SELFPAY ==
[2021-12-27 10:16] VITALS: BP 163/71; PULSE 87; RESP 20; TEMP 36.8; O2SAT 98; BMI 45.6
--- NOTE | 2021-12-27 10:18 | HMH.EDEXTP ---
ED Disposition Clinical Impression: Hyperglycemia, Chronic venous stasis dermatitis of both lower extremities Cellulitis Qualifiers: Site of cellulitis of extremity: lower extremity Laterality: unspecified laterality Disposition: Home, Self-Care Condition on Discharge: Fair Instructions: Cellulitis, DI for Chronic Pain -- Child Additional Instructions: Take all medications as prescribed including the medication that I prescribed to you yesterday which you have not yet picked up. Follow-up with your primary care physician as needed. Referrals: Bert Villagomez MD [Primary Care Provider] - - Critical Care Critical Care Time: No Attestation: On , the high probability of a clinically significant, sudden or life threatening deterioration of the following system(s) required my full and direct attention, intervention and personal management. The time I documented below is in addition to time spent performing reported procedures but includes the following listed in this critical care notation. Medical Decision Making - Fahad Inquiry Pt receiving controlled substance: No Vital Signs: 12/27/21 10:16 12/27/21 11:26 Temperature 98.3 F Temperature Source Oral Pulse Rate 87 Pulse Rate [Radial] 87 Respiratory Rate 20 20 Blood Pressure 138/87 Blood Pressure [Right Arm] 163/71 H Blood Pressure Mean 110 Blood Pressure Mean [Right Arm] 101 Blood Pressure Position [Right Arm] Sitting 02 Sat by Pulse Oximetry 98 98 Oxygen Delivery Method Room Air Room Air - Lab Data Lab Results 12/27/21 10:50: WBC 7.6, RBC 4.84, Hgb 10.1 L, Hct 33.6 L, MCV 69.3 L, MCH 20.9 L, MCHC 30.1 L, RDW 18.5 H, Plt Count 467 H D, MPV 7.7, Neut % (Auto) 71.0, Lymph % (Auto) 16.7, [place] % (Auto) 7.1, Eos % (Auto) 4.4, Baso % (Auto) 0.8, Neut # (Auto) 5.4, Lymph # (Auto) 1.3, [place] # (Auto) 0.5, Eos # (Auto) 0.3, Baso # (Auto) 0.1 12/27/21 10:50: Sodium 138, Potassium 3.5, Chloride 91 L, Carbon Dioxide 36 H, Anion Gap 14.5, BUN 41 H, Creatinine 1.70 H, Estimated Creat Clear 50, Estimated GFR 43 L, Est GFR ( Amer) 52 L, Glucose 239 H, Calcium 9.4 Result diagrams: 12/27/21 10:50 12/27/21 10:50 Orders (Tests/Meds): ED MEDICATIONS Discontinued Medications Generic Name Dose Route Start Last Admin Trade Name Jeremy PRN Reason Stop Dose Admin Ketorolac Tromethamine 60 mg 12/27/21 10:45 12/27/21 10:56 Ketorolac 60mg/2ml Vial IM 12/27/21 10:46 60 mg ONCE ONE Administration Medical Decision Narrative: The patient's work-up in the emergency department did not reveal any life-threatening or dangerous causes for the patient's complaints. He visits this emergency department frequently for similar complaints. I saw him yesterday. There is no evidence of sepsis. He has a normal white blood cell count. He has chronic renal insufficiency. He states that he has decided to stop his anxiety medication and would like a refill. I told him that I would not be prescribing any controlled substances and that if he wanted to start his anxiety medication again he would have to started on his own or speak to his primary care physician about this. Patient is stable and can be discharged. Extremity Problem HPI - General Stated complaint: leg pain Time Seen by Provider: 12/27/21 10:18 Mode of Arrival: Ambulatory Source of Information: Patient - History of Present Illness HPI Narrative: The patient presents to the emergency department again today. His complaints have not changed. He complains of leg pain. This is chronic in nature. He is also diabetic. Yesterday he asked whether he could be admitted. I told him that he did not meet admission requirements. He is back today. - Related Data Home Medications Medication Instructions Recorded Confirmed aspirin 81 mg tablet,delayed 81 mg PO DAILY tab 10/27/17 12/15/21 release cholecalciferol (vitamin D3) 1,250 1,250 mcg PO WEEKLY 01/18/21 12/15/21 mcg (50,000 unit) ca
--- NOTE | 2021-12-27 10:55 | PC.WOUNDNOTE ---
pt states he wants something for anxiety. aware. no new orders noted
[2021-12-27 11:03] LABS: Basophils # 0.1 K/mm3 (0-0.2); Basophils % 0.8 % (0.1-2.0); Eosinophils # 0.3 K/mm3 (0.0-0.4); Eosinophils % 4.4 % (0.1-12.0); Hematocrit 33.6 % (42.0-52.0); Hemoglobin 10.1 g/dL (14.1-18.0); Lymphocytes # 1.3 K/mm3 (0.7-4.5); Lymphocytes % 16.7 % (10-50); Mean Corpuscular HGB Conc 30.1 g/dL (31.8-35.4); Mean Corpuscular Hemoglobin 20.9 pg (27.0-31.2); Mean Corpuscular Volume 69.3 fl (80-94); Mean Platelet Volume 7.7 fl (7.4-10.4); Monocytes # 0.5 K/mm3 (0.1-1.0); Monocytes % 7.1 % (1.7-9.3); Neutrophils # 5.4 K/mm3 (1.8-7.8); Platelet Count 467 K/mm3 (142-424); Red Blood Count 4.84 M/mm3 (4.60-6.20); Red Cell Distribution Width 18.5 % (11.5-17.5); White Blood Count 7.6 K/mm3 (4.8-10.8)
[2021-12-27 11:16] LABS: Chloride 91 mmol/L (98-107)
[2021-12-27 11:17] LABS: Potassium 3.5 mmoL/L (3.5-5.1); Sodium 138 mmol/L (136-145)
[2021-12-27 11:19] LABS: Blood Urea Nitrogen 41 mg/dl (9-20); Creatinine Clearance Estimated 50 mL/min (50-200); Estimated Glomerular Filt Rate 43 ml/min (>60); GFR (African American) 52 ML/MIN (>60)
[2021-12-27 11:20] LABS: Anion Gap 14.5 mEq/L (5-15); Calcium 9.4 mg/dl (8.4-10.2); Carbon Dioxide 36 mmol/L (22.0-30.0); Glucose 239 mg/dl (74-100)
--- NOTE | 2021-12-27 11:20 | PC.NURSE ---
checked on pt at this time, pt states no needs will continue to monitor
[2021-12-27 11:26] VITALS: BP 138/87; PULSE 87; RESP 20; O2SAT 98
[2021-12-27 11:51] VITALS: BP 139/77; PULSE 90; RESP 20; TEMP 36.7; O2SAT 98
== END 2021-12-27 11:55 | disposition home or self-care (01) ==
PROVIDERS: Emergency Provider Emergency Medicine; PCP Family Medicine
DX: E11.65 Type 2 diabetes mellitus with hyperglycemia; I83.11 Varicose veins of right lower extremity with inflammation; I83.12 Varicose veins of left lower extremity with inflammation; L03.116 Cellulitis of left lower limb; L03.115 Cellulitis of right lower limb; Z79.82 Long term (current) use of aspirin; Z79.4 Long term (current) use of insulin; Z79.899 Other long term (current) drug therapy; I48.91 Unspecified atrial fibrillation; I11.0 Hypertensive heart disease with heart failure; I50.9 Heart failure, unspecified; I25.10 Atherosclerotic heart disease of native coronary artery without angina pectoris
CPT/HCPCS: 80048; 85025; 96372; 99283

== ENCOUNTER 2021-12-30 10:24 | Emergency (ER) | payer MEDICARE, MEDICAID, SELFPAY ==
[2021-12-30 10:24] VITALS: BP 171/88; PULSE 87; RESP 20; TEMP 36.6; O2SAT 98; BMI 45.6
--- NOTE | 2021-12-30 11:22 | HMH.EDGENADL ---
ED Disposition Clinical Impression: Chronic pain of lower extremity, bilateral Disposition: Home, Self-Care Condition on Discharge: Good Additional Instructions: Take your usual pain medication. Call your primary care provider to arrange follow-up. Referrals: Cameron Kohli MD [Primary Care Provider] - - Critical Care Critical Care Time: No Attestation: On 12/30/21, the high probability of a clinically significant, sudden or life threatening deterioration of the following system(s) required my full and direct attention, intervention and personal management. The time I documented below is in addition to time spent performing reported procedures but includes the following listed in this critical care notation. Medical Decision Making - Medical Records Medical records reviewed: Yes: I reviewed the patient's medical records. MR Comment: Reviewed recent visits. Seen by me in this emergency department on 12/23/2021 for the same symptoms. At that point I contacted Dr. Villagomez who advised me to give him a short course of pain medication and he would see him the next day in the office. The patient tells me that he was not able to be seen the next day because Dr. Villagomez was booked. He was back in the emergency department for the same complaints on 12/24, 12/26, and 12/27. He saw Dr. Villagomez in the office on 12/28 for the same symptoms and was given injection of Toradol. It appears that he had appointment scheduled for Dr. Mendes of podiatry on 12/28 and cardiology, Dr. Warren, on 12/29 and did not show for those 2 appointments. - Fahad Inquiry Pt receiving controlled substance: No Vital Signs: 12/30/21 10:24 Temperature 97.9 F Temperature Source Oral Pulse Rate [Right Radial] 87 Respiratory Rate 20 Blood Pressure [Right Arm] 171/88 H Blood Pressure Mean [Right Arm] 115 Blood Pressure Source [Right Arm] Automatic Cuff Blood Pressure Position [Right Arm] Sitting 02 Sat by Pulse Oximetry 98 Oxygen Delivery Method Room Air Medical Decision Narrative: The patient has no change in the appearance of his legs from previous visits where I have examined him. His complaints of leg pain are chronic. He has had multiple evaluations when he presents with this complaint. I do not suspect infection or sepsis or DVT. He was fine this morning when he visited his mother here and only began complaining of pain after he went to be specialty clinic and was sent back to the emergency room. I offered him an injection of Toradol but he refuses. He wants pain medication, he questions whether his primary care doctor would send in an order for him to be given pain medication in the emergency room. I have declined to do so. I advised him to follow-up with his primary care provider for further care. I do not feel he needs further evaluation or treatment at this time. He has chronic pain medication that he can take for his pain. General Adult HPI - General Chief complaint: PAIN Stated complaint: leg pain Time Seen by Provider: 12/30/21 11:22 Mode of Arrival: Wheelchair Limitations: No Limitations Description of Symptoms (Recalled from ER Triage Doc. by RN): pt c/o margarita leg pain, reports his legs are cramping. Pt reports feels like charley horses . Pt states cramping began suddenly when at the specialty clinic for an appt when pain began. - History of Present Illness HPI narrative: Patient is well-known to me from previous emergency department visits. He has chronic pain in both legs, complains of charley horses and cramping and burning . He was here visiting his mother in the emergency department this morning and said that he was feeling good when nurses spoke with him. He then apparently went to the specialty clinic and began complaining of severe pain in his legs and he says that they told him to come to the emergency room. He did not have a scheduled appointment in the specialty clinic, but says that he was going to the edema clinic to see if they wo
[2021-12-30 11:46] VITALS: BP 168/81; PULSE 91; RESP 18; TEMP 36.6; O2SAT 96
== END 2021-12-30 11:48 | disposition home or self-care (01) ==
PROVIDERS: Emergency Provider Emergency Medicine; PCP Internal Medicine Adolescent Medicine
DX: G89.29 Other chronic pain (principal); M79.604 Pain in right leg; M79.605 Pain in left leg
CPT/HCPCS: 99282

== ENCOUNTER 2022-01-02 08:41 | Emergency (ER) | payer MEDICARE, MEDICAID, SELFPAY ==
[2022-01-02 08:41] VITALS: BP 193/97; PULSE 85; RESP 18; TEMP 36.8; O2SAT 100; BMI 45.6
--- NOTE | 2022-01-02 08:49 | ECG_ITS ---
APPROVED REPORT Exam: Resting ECG HR:81 bpm ECG Measurements Heart Rate 81 AXES [place] 157 P 68 QRSd 115 QRS 59 QT 383 T 44 QTc 421 Conclusion SINUS RHYTHM MODERATE INTRAVENTRICULAR CONDUCTION DELAY [110+ ms QRS DURATION] BORDERLINE ECG UNCONFIRMED REPORT Electronically signed by : Cameron Kohli MD 01/03/2022 14:03:25
--- NOTE | 2022-01-02 08:52 | HMH.EDGENADL ---
ED Disposition Clinical Impression: Acute anxiety, Essential hypertension Disposition: Home, Self-Care Condition on Discharge: Good Instructions: DI for Anxiety -- Adult Additional Instructions: Take your lorazepam when you arrive home. Additional instructions for SHORTNESS OF BREATH: See your physician as soon as possible for further evaluation. Return immediately if worsening shortness of breath or if vomiting, chest pain, fever, coughing of blood, or passing out. Additional instructions regarding BLOOD PRESSURE: One or more of your blood pressure readings elevated today. Please contact your primary care physician for further evaluation or treatment of your blood pressure. Take your blood pressure at home once daily and record the result to take to your primary care provider. Referrals: Bert Villagomez MD [Primary Care Provider] - - Critical Care Critical Care Time: No Attestation: On 01/02/22, the high probability of a clinically significant, sudden or life threatening deterioration of the following system(s) required my full and direct attention, intervention and personal management. The time I documented below is in addition to time spent performing reported procedures but includes the following listed in this critical care notation. Medical Decision Making - Medical Records Medical records reviewed: Yes: I reviewed the patient's medical records. MR Comment: Reviewed recent primary care office visits and most recent discharge summary as noted below. Reviewed collective notification which indicates patient has had 61 emergency department visits in the past 12 months. - Fahad Inquiry Pt receiving controlled substance: No Vital Signs: 01/02/22 08:41 01/02/22 09:00 01/02/22 09:38 Temperature 98.2 F Temperature Source Oral Pulse Rate 85 80 Pulse Rate [Left Radial] 85 Respiratory Rate 18 Blood Pressure 178/92 H 177/80 H Blood Pressure [Right Arm] 193/97 H Blood Pressure Mean 114 110 Blood Pressure Mean [Right Arm] 129 Blood Pressure Source [Right Arm] Automatic Cuff Blood Pressure Position [Right Arm] Sitting 02 Sat by Pulse Oximetry 100 98 98 Oxygen Delivery Method Room Air Room Air - Lab Data Lab Results 01/02/22 09:13: WBC 8.5, RBC 4.53 L, Hgb 9.4 L, Hct 31.7 L, MCV 70.0 L, MCH 20.8 L, MCHC 29.7 L, RDW 18.3 H, Plt Count 516 H, MPV 7.9, Neut % (Auto) 75.1, Lymph % (Auto) 13.6, [place] % (Auto) 6.6, Eos % (Auto) 3.8, Baso % (Auto) 0.9, Neut # (Auto) 6.4, Lymph # (Auto) 1.2, [place] # (Auto) 0.6, Eos # (Auto) 0.3, Baso # (Auto) 0.1 01/02/22 09:13: Sodium 139, Potassium 3.7, Chloride 98, Carbon Dioxide 34 H, Anion Gap 10.7, BUN 31 H, Creatinine 1.30 H, Estimated Creat Clear 66, Estimated GFR 58 L, Est GFR ( Amer) 71, Glucose 189 H, Calcium 8.6, Troponin I < 0.01 Result diagrams: 01/02/22 09:13 01/02/22 09:13 Orders (Tests/Meds): ED MEDICATIONS Generic Name Dose Route Start Last Admin Trade Name Freq PRN Reason Stop Dose Admin Sodium Chloride 10 ml 01/02/22 09:04 Sodium Chloride 0.9% 10ml Flush Syringe IV 02/01/22 09:03 NEEDED PRN Maintain IV Site ORDERS Category Date Time Status XR chest 2V Stat Exams 01/02/22 09:04 Taken Troponin I Q3H Lab 01/02/22 12:15 Ordered Troponin I Q3H Lab 01/02/22 15:15 Ordered - Radiology Data #1 Image(s): Chest (Preliminary interpretation by me: No acute process) Image Reviewed: Yes I reviewed the patient's radiology image - ECG Data Tracing #1 EKG interpreted by Jurgen Santos MD: Rhythm: sinus Rate: 81 [place]: normal Ectopy: none Conduction: normal ST Segment Changes: none T Wave Changes: none Q Waves: none No evidence of acute ischemia or injury Medical Decision Narrative: I discussed with patient that he has a prescription for lorazepam, 60 tablets, that was filled on 12/21/2021. He says that they did not have it at the pharmacy and are having to fill pill
--- NOTE | 2022-01-02 08:56 | PC.NURSE ---
MIRTHA CARLISLE at
[2022-01-02 09:00] VITALS: BP 178/92; PULSE 85; O2SAT 98
--- NOTE | 2022-01-02 09:04 | XR_ITS ---
PROCEDURE INFORMATION: Exam: XR Chest Exam date and time: 01/02/2022 9:11 AM Age: 51 years old Clinical indication: Shortness of breath; Additional info: SOA TECHNIQUE: Imaging protocol: Radiologic exam of the chest. Views: 2 views. COMPARISON: CR XR CHEST PORTABLE 12/16/2021 4:15 PM FINDINGS: Lungs: Hyperinflation and interstitial prominence. Pleural spaces: No pleural effusion. Heart/Mediastinum: No cardiomegaly. Bones/joints: Mild degenerative change. IMPRESSION: Hyperinflation and interstitial prominence.
[2022-01-02 09:23] LABS: Basophils # 0.1 K/mm3 (0-0.2); Basophils % 0.9 % (0.1-2.0); Eosinophils # 0.3 K/mm3 (0.0-0.4); Eosinophils % 3.8 % (0.1-12.0); Hematocrit 31.7 % (42.0-52.0); Hemoglobin 9.4 g/dL (14.1-18.0); Lymphocytes # 1.2 K/mm3 (0.7-4.5); Lymphocytes % 13.6 % (10-50); Mean Corpuscular HGB Conc 29.7 g/dL (31.8-35.4); Mean Corpuscular Hemoglobin 20.8 pg (27.0-31.2); Mean Platelet Volume 7.9 fl (7.4-10.4); Monocytes # 0.6 K/mm3 (0.1-1.0); Monocytes % 6.6 % (1.7-9.3); Neutrophils # 6.4 K/mm3 (1.8-7.8); Neutrophils % 75.1 % (37.0-80.0); Platelet Count 516 K/mm3 (142-424); Red Blood Count 4.53 M/mm3 (4.60-6.20); Red Cell Distribution Width 18.3 % (11.5-17.5); White Blood Count 8.5 K/mm3 (4.8-10.8)
[2022-01-02 09:31] LABS: Anion Gap 10.7 mEq/L (5-15); Blood Urea Nitrogen 31 mg/dl (9-20); Calcium 8.6 mg/dl (8.4-10.2); Carbon Dioxide 34 mmol/L (22.0-30.0); Chloride 98 mmol/L (98-107); Creatinine Clearance Estimated 66 mL/min (50-200); Estimated Glomerular Filt Rate 58 ml/min (>60); GFR (African American) 71 ML/MIN (>60); Glucose 189 mg/dl (74-100); Potassium 3.7 mmoL/L (3.5-5.1); Sodium 139 mmol/L (136-145)
[2022-01-02 09:38] VITALS: BP 177/80; PULSE 80; O2SAT 98
--- NOTE | 2022-01-02 09:43 | PC.NURSE ---
PT resting in w/c with mother at bedside. No new needs at this time
[2022-01-02 09:45] LABS: Troponin I < 0.01 ng/ml (0.00-0.034)
--- NOTE | 2022-01-02 09:54 | PC.NURSE ---
ER MD at speaking with patient regarding update on POC
[2022-01-02 10:12] VITALS: BP 162/80; PULSE 74; RESP 16; TEMP 36.8; O2SAT 98
== END 2022-01-02 10:13 | disposition home or self-care (01) ==
PROVIDERS: Emergency Provider Emergency Medicine; PCP Family Medicine
DX: F41.0 Panic disorder [episodic paroxysmal anxiety] (principal); I10 Essential (primary) hypertension; Z79.899 Other long term (current) drug therapy; Z79.82 Long term (current) use of aspirin; Z79.4 Long term (current) use of insulin; Z88.8 Allergy status to other drugs, medicaments and biological substances; I48.91 Unspecified atrial fibrillation; I25.10 Atherosclerotic heart disease of native coronary artery without angina pectoris; E11.9 Type 2 diabetes mellitus without complications; I11.0 Hypertensive heart disease with heart failure; K21.9 Gastro-esophageal reflux disease without esophagitis; E78.5 Hyperlipidemia, unspecified; I50.9 Heart failure, unspecified; I73.9 Peripheral vascular disease, unspecified
CPT/HCPCS: 71046; 80048; 84484; 85025; 93005; 99283

== ENCOUNTER 2022-01-03 11:03 | Emergency (ER) | payer MEDICARE, MEDICAID, SELFPAY ==
--- NOTE | 2022-01-03 11:02 | ECG_ITS ---
APPROVED REPORT Exam: Resting ECG HR:73 bpm ECG Measurements Heart Rate 73 AXES [place] 164 P 39 QRSd 108 QRS 9 QT 403 T 52 QTc 429 Conclusion SINUS RHYTHM NORMAL ECG UNCONFIRMED REPORT Electronically signed by : Cameron Kohli MD 01/05/2022 18:00:26
[2022-01-03 11:04] VITALS: BP 120/71; PULSE 72; RESP 20; TEMP 36.7; O2SAT 99; BMI 45.6
--- NOTE | 2022-01-03 11:11 | PC.NURSE ---
1111 ED MD AT BEDSIDE
--- NOTE | 2022-01-03 11:16 | XR_ITS ---
FINAL REPORT CLINICAL HISTORY: SOB COMPARISON: January 02, 2022 FINDINGS: There is mild cardiomegaly. There is mild pulmonary vascular congestion. The mediastinum is normal. The lungs are underinflated. There are no pleural effusions. There is no pneumothorax. There is no osseous abnormality. IMPRESSION: Mild cardiomegaly with mild pulmonary vascular congestion. Reviewed, Interpreted and Dictated by Caleb Randle MD Transcribed by Guy Wolff Authenticated and [facility]
[2022-01-03 11:21] LABS: Basophils # 0.1 K/mm3 (0-0.2); Basophils % 0.7 % (0.1-2.0); Eosinophils # 0.3 K/mm3 (0.0-0.4); Eosinophils % 3.5 % (0.1-12.0); Hemoglobin 8.8 g/dL (14.1-18.0); Lymphocytes # 1.5 K/mm3 (0.7-4.5); Lymphocytes % 18.6 % (10-50); Mean Corpuscular HGB Conc 28.4 g/dL (31.8-35.4); Mean Corpuscular Hemoglobin 19.8 pg (27.0-31.2); Mean Corpuscular Volume 69.7 fl (80-94); Monocytes # 0.6 K/mm3 (0.1-1.0); Monocytes % 7.6 % (1.7-9.3); Neutrophils # 5.6 K/mm3 (1.8-7.8); Neutrophils % 69.6 % (37.0-80.0); Platelet Count 512 K/mm3 (142-424); Red Blood Count 4.45 M/mm3 (4.60-6.20); Red Cell Distribution Width 18.3 % (11.5-17.5); White Blood Count 8.1 K/mm3 (4.8-10.8)
--- NOTE | 2022-01-03 11:21 | HMH.EDCP ---
ED Disposition Clinical Impression: Stable angina, Dependent edema Disposition: Home, Self-Care Condition on Discharge: Good Instructions: DI for Chronic Pain -- Adult Referrals: Star Mathis MD [Primary Care Provider] - - Critical Care Critical Care Time: No Attestation: On , the high probability of a clinically significant, sudden or life threatening deterioration of the following system(s) required my full and direct attention, intervention and personal management. The time I documented below is in addition to time spent performing reported procedures but includes the following listed in this critical care notation. Medical Decision Making - Medical Records Medical records reviewed: Yes: I reviewed the patient's medical records. - Fahad Inquiry Pt receiving controlled substance: No Vital Signs: 01/03/22 11:04 01/03/22 11:31 Temperature 98.0 F Temperature Source Oral Pulse Rate [Brachial] 72 Respiratory Rate 20 Blood Pressure 177/81 H Blood Pressure [Right Arm] 120/71 Blood Pressure Mean 113 Blood Pressure Mean [Right Arm] 87 Blood Pressure Source [Right Arm] Automatic Cuff Blood Pressure Position [Right Arm] Sitting 02 Sat by Pulse Oximetry 99 Oxygen Delivery Method Nasal Cannula Oxygen Flow Rate (LPM) 2 - Lab Data Lab Results 01/03/22 11:05: WBC 8.1, RBC 4.45 L, Hgb 8.8 L, Hct 31.0 L, MCV 69.7 L, MCH 19.8 L, MCHC 28.4 L, RDW 18.3 H, Plt Count 512 H, MPV 8.0, Neut % (Auto) 69.6, Lymph % (Auto) 18.6, [place] % (Auto) 7.6, Eos % (Auto) 3.5, Baso % (Auto) 0.7, Neut # (Auto) 5.6, Lymph # (Auto) 1.5, [place] # (Auto) 0.6, Eos # (Auto) 0.3, Baso # (Auto) 0.1 01/03/22 11:05: Troponin I < 0.01 01/03/22 11:05: Sodium 136, Potassium 3.3 L, Chloride 98, Carbon Dioxide 33 H, Anion Gap 8.3, BUN 21 H D, Creatinine 1.20, Estimated Creat Clear 71, Estimated GFR 64, Est GFR ( Amer) 78, Glucose 187 H, Calcium 8.8 Result diagrams: 01/03/22 11:05 07/11/22 11:05 Orders (Tests/Meds): ED MEDICATIONS Discontinued Medications Generic Name Dose Route Start Last Admin Trade Name Jeremy PRN Reason Stop Dose Admin Hydrocodone Bitart/Acetaminophen 1 tab 01/03/22 11:32 01/03/22 11:34 Apap/Hydrocodone 325mg/7.5mg Tab PO 01/03/22 11:33 1 tab ONCE ONE Administration ORDERS Category Date Time Status XR chest portable Stat Exams 01/03/22 11:16 Taken Troponin I Q3H Lab 01/03/22 14:15 Ordered Troponin I Q3H Lab 01/03/22 17:15 Ordered - Radiology Data #1 Image(s): Chest Image Reviewed: Yes I reviewed the patient's radiology results, Yes I reviewed the patient's radiology image, Yes I have reviewed radiologist's interpretation Preliminary Findings: Normal/NAD - ECG Data Tracing #1 I reviewed this ECG and interpreted as documented below: ECG initial impression date: 01/03/22 ECG initial impression time: 11:02 ECG normal with no acute: arrhythmias, ischemia, conduction abnormalities, chamber hypertrophy Normal Sinus Rhythm: Yes - Reevaluation(s) Time: 12:03 Reevaluation #1: On reevaluation, patient is pain-free. Troponin negative. EKG unremarkable. Patient needs to follow-up with PCP. Needs to maintain his medications at home. Given strict return precautions. Verbalized understanding. Medical Decision Narrative: 51-year-old male presenting with some chest pain and lower leg pain. This appears to be acute exacerbation of chronic pain. Patient chest pain-free at this time. EKG normal. Work-up initiated. Chest Pain HPI - General Chief Complaint: Chest Pain Stated Complaint: Chest pain/MAE Time Seen by Provider: 01/03/22 11:10 Mode of Arrival: EMS Limitations: No Limitations Description of Symptoms (Recalled from ER Triage Doc. by RN): PT BROUGHT IN BY EMS FOR CHEST PAIN, REPORTS TAKING NITRO X 2. SYMPTOMS RESOLVED. REPORTS HEARTBURN AND NAUSEA. DENIES ANY SYMPTOMS AT THIS TIME. PAIN DID NOT RADIATE. NO INCREASED SOA - History of Present Illness
[2022-01-03 11:24] LABS: Chloride 98 mmol/L (98-107); Potassium 3.3 mmoL/L (3.5-5.1); Sodium 136 mmol/L (136-145)
[2022-01-03 11:27] LABS: Blood Urea Nitrogen 21 mg/dl (9-20); Calcium 8.8 mg/dl (8.4-10.2); Carbon Dioxide 33 mmol/L (22.0-30.0); Creatinine Clearance Estimated 71 mL/min (50-200); Estimated Glomerular Filt Rate 64 ml/min (>60); GFR (African American) 78 ML/MIN (>60); Glucose 187 mg/dl (74-100)
[2022-01-03 11:31] VITALS: BP 177/81
--- NOTE | 2022-01-03 11:32 | PC.NURSE ---
XR AT BEDSIDE
[2022-01-03 11:34] LABS: Anion Gap 8.3 mEq/L (5-15)
--- NOTE | 2022-01-03 11:38 | PC.NURSE ---
PT MEDICATED PER EMAR, PT PROVIDED DRINK. SIDE RAILS UP AND CALL LIGHT IN PLACE
[2022-01-03 11:42] LABS: Troponin I < 0.01 ng/ml (0.00-0.034)
[2022-01-03 12:01] VITALS: BP 128/68; PULSE 76; RESP 18; O2SAT 94
--- NOTE | 2022-01-03 12:20 | PC.NURSE ---
ATTEMPTED X2 TO REACH FAMILY FOR DISCHARGE OF PT. NO ANSWER
--- NOTE | 2022-01-03 12:26 | PC.NURSE ---
Called son for someone to pickle maker patient, stated that he would notify his mother to come pickle maker patient.
--- NOTE | 2022-01-03 12:29 | PC.NURSE ---
Pt requested food, called dietary for diabetic tray.
[2022-01-03 12:32] VITALS: BP 147/97; PULSE 76; RESP 18; O2SAT 96
--- NOTE | 2022-01-03 12:35 | PC.NURSE ---
pt called she was updated on pt condition and they are on the way to pick pt up
--- NOTE | 2022-01-03 12:42 | PC.NURSE ---
PT PROVIDED LUNCH TRAY AND WARM BLANKET. NO FURTHER NEEDS AT THIS TIME. CALL LIGHT WITHIN REACH. SIDE RAILS UP
[2022-01-03 13:02] VITALS: BP 131/67; PULSE 74; RESP 18; O2SAT 96
--- NOTE | 2022-01-03 13:16 | PC.NURSE ---
PT SITTING UP IN BED. SIDE RAILS UP. CALL LIGHT WITHIN REACH. REPORTS LEG PAIN IMPROVED. NO NEEDS AT THIS TIME
[2022-01-03 13:45] VITALS: BP 131/67; PULSE 75; RESP 20; TEMP 36.6; O2SAT 99
== END 2022-01-03 13:45 | disposition home or self-care (01) ==
PROVIDERS: Emergency Provider Emergency Medicine; PCP Emergency Medicine
DX: I13.0 Hypertensive heart and chronic kidney disease with heart failure and stage 1 through stage 4 chronic kidney disease, or unspecified chronic kidney disease (principal); I20.8 Other forms of angina pectoris; E11.22 Type 2 diabetes mellitus with diabetic chronic kidney disease; N18.9 Chronic kidney disease, unspecified; I50.9 Heart failure, unspecified; Z79.82 Long term (current) use of aspirin; Z79.899 Other long term (current) drug therapy; Z79.4 Long term (current) use of insulin; I48.91 Unspecified atrial fibrillation; K21.9 Gastro-esophageal reflux disease without esophagitis; E78.5 Hyperlipidemia, unspecified; Z95.0 Presence of cardiac pacemaker; I73.9 Peripheral vascular disease, unspecified
CPT/HCPCS: 71045; 80048; 84484; 85025; 93005; 99284